=== PATIENT | female | born 1950 | race Caucasian/White ===

== ENCOUNTER → 2019-12-10 13:25 | Outpatient (BNVA) | payer MEDICARE, OTHER, SELFPAY | PROVIDERS: Family Provider Family Medicine; PCP Family Medicine; Visit Provider Internal Medicine Rheumatology | DX: M05.79 Rheumatoid arthritis with rheumatoid factor of multiple sites without organ or systems involvement (principal); Z79.52 Long term (current) use of systemic steroids; M17.0 Bilateral primary osteoarthritis of knee; I10 Essential (primary) hypertension; Z87.891 Personal history of nicotine dependence | CPT/HCPCS: 36415; 82565; 84460; 85025; 85651; 86140; 99213 ==

== ENCOUNTER 2020-01-24 11:34 | Emergency (ER) | payer MEDICARE, OTHER, SELFPAY ==
[2020-01-24 11:49] VITALS: BP 121/64; PULSE 68; RESP 16; TEMP 36.8; O2SAT 96; BMI 29.9
--- NOTE | 2020-01-24 12:05 | XRR_ITS ---
PROCEDURE INFORMATION: Exam: XR Chest, 2 Views Exam date and time: 01/24/2020 12:25 PM Age: 69 years old Clinical indication: Chest pain; Type not specified; Prior surgery; Surgery date: 6+ months; Surgery type: Stent, date not provided TECHNIQUE: Imaging protocol: XR of the chest Views: 2 views. COMPARISON: CR Chest 2 views* [id number] 10/14/2019 12:52 PM FINDINGS: Lungs: Unremarkable. No consolidation. Pleural space: Unremarkable. No pleural effusion. No pneumothorax. Heart/Mediastinum: Unremarkable. No cardiomegaly. Bones/joints: Degenerative change is identified in the spine. There is no evidence for acute fracture or malalignment. XR/XR chest 2V* [id number] IMPRESSION: There are no acute concerning abnormalities.
--- NOTE | 2020-01-24 12:06 | ECG_ITS ---
Measurements Intervals [place] Rate: 69 P: 75 RI: 158 QRS: 24 QRSD: 78 T: 61 QT: 387 QTc: 415 SINUS RHYTHM Compared to ECG 10/14/2019 12:01:13 No significant changes Electronically Signed On 01-24-2020 15:27:16 MAIL ORDER BILLER by Nikki Doe M.D. [id number]
[2020-01-24 12:20] LABS: Basophils # 0.1 10^3/uL (0.0-0.1); Basophils % 0.6 %; Eosinophils # 0.1 10^3/uL (0.0-0.8); Eosinophils % 1.3 %; Hematocrit 35.8 % (37.0-47.0); Hemoglobin 10.8 g/dL (11.5-15.3); Lymphocytes # 1.4 10^3/uL (0.8-4.8); Lymphocytes % 16.2 %; Mean Corpuscular HGB Conc 30.2 g/dL (30.0-36.0); Mean Corpuscular Hemoglobin 23.4 pg (28.0-34.0); Mean Corpuscular Volume 77.7 fL (81-99); Mean Platelet Volume 9.9 fL (7.4-10.4); Monocytes # 0.6 10^3/uL (0.2-0.9); Monocytes % 6.9 %; Neutrophils # 6.5 10^3/uL (1.8-7.7); Neutrophils % 74.7 %; Nucleated Red Blood Cells % 0 %; Platelet Count 319 10^3/cmm (130-400); Red Blood Count 4.61 10^6/uL (4.1-5.3); Red Cell Distribution Width 17.1 % (12.1-15.1); White Blood Count 8.7 10^3/uL (4.0-10.0)
[2020-01-24 12:30] LABS: D Dimer 0.89 ug/mIFEU (0-0.59)
[2020-01-24 12:39] LABS: Troponin(5th) Baseline 10 ng/mL (0-10)
[2020-01-24 12:44] LABS: Alanine Aminotransferase 12 U/L (0-33); Albumin Level 4.1 g/dL (3.5-5.2); Alkaline Phosphatase 94 IU/L (35-105); Anion Gap 14.7 (5-19); Aspartate Amino Transferase 15 U/L (0-32); Blood Urea Nitrogen 22 mg/dL (8-23); Calcium 9.8 mg/dL (8.5-10.5); Carbon Dioxide 26 mmol/L (22-29); Chloride 103 mmol/L (98-107); Globulin 2.2 g/dL (1.3-4.6); Glomerular Filtration Rate 54.8 mL/min (90-130); Glucose 106 mg/dL (65-115); Lipase 51 U/L (13-60); Magnesium 2.3 mg/dL (1.7-2.3); Potassium 3.7 mmol/L (3.5-5.1); Sodium 140 mmol/L (136-145); Thyroid Stimulating Hormone 1.07 uIU/mL (0.27-4.20); Total Bilirubin 0.4 mg/dL (0.15-1.2); Total Protein 6.3 g/dL (6.6-8.7)
== END 2020-01-24 13:53 | disposition left against medical advice (07) ==
LOC: ER 16:59
PROVIDERS: Emergency Provider Nurse Practitioner Family; Family Provider Family Medicine; PCP Family Medicine
DX: R07.9 Chest pain, unspecified (principal); I10 Essential (primary) hypertension; I25.10 Atherosclerotic heart disease of native coronary artery without angina pectoris; Z87.891 Personal history of nicotine dependence; Z53.21 Procedure and treatment not carried out due to patient leaving prior to being seen by health care provider
CPT/HCPCS: 36415; 71046; 80053; 83690; 83735; 84443; 84484; 85025; 85378; 93005; 99281; 99283

== ENCOUNTER 2020-02-25 10:11 | Emergency (ER) | payer MEDICARE, OTHER, SELFPAY ==
[2020-02-25 10:18] VITALS: BP 179/59; PULSE 80; RESP 17; TEMP 36.8; O2SAT 97; BMI 28.1
--- NOTE | 2020-02-25 10:23 | ED_ITS ---
Entered by Nickolas Reilly, acting as scribe for Pradip Brown DO HPI - Extremity Problem General: Chief complaint: Extremity Problem,Nontraumatic Stated complaint: RIGHT KNEE PAIN Time Seen by Provider: 02/25/20 10:22 History of Present Illness: HPI Narrative: 69 yo female presents with right knee pain. Pt recently had knee surgery, she noticed that her knee started bleeding. Pt states that she has been active and noticed that her incision is open a little. No active bleeding in the patient was first seen she denies any chest pain or shortness of breath surgery was approximately 3 weeks ago MD Complaint: extremity pain Associated symptoms: Deny chest pain, fever(s) or rash Review of Systems Const: Denies: fever, chills, body aches, fatigue, malaise or night sweats Eyes: Denies: change in vision or blurry vision ENMT: Denies: throat pain, oral sores/lesions, dental pain, nasal discharge or nasal congestion Card: Denies: chest pain, palpitations, irregular heart rhythm, edema, syncope, shortness of breath on exertion, shortness of breath when lying down or leg pain with exertion Resp: Denies: shortness of breath, productive cough, non-productive cough or wheezing GI: Denies: abdominal pain, nausea, vomiting, vomiting blood, coffee grounds in vomit, difficulty swallowing, heartburn/indigestion, diarrhea, constipation, cramping, blood in stool or black tarry stool : Denies: flank pain, painful urination, urinary frequency, urinary urgency, urinary incontinence or blood in urine Musc: Denies: neck pain, back pain, extremity pain, extremity swelling, joint pain or joint swelling Skin/Breast: Denies: rash, itching or redness Neuro: Denies: headache, numbness in extremities, weakness in extremities, changes in sensation, lack of coordination, difficulty walking, frequent falls, dizziness, vertigo or confusion Psych: Denies: anxiety, depression, loss of interest, visual hallucinations, auditory hallucinations, suicidal ideation or homicidal ideation Endo: Denies: excessive urination, excessive thirst, tired all the time or cold intolerance Shayan/Lymph: Denies: easy bruising, easy bleeding, petechiae, enlarged lymph nodes or tender lymph nodes PFSH ED PFSH: Social History Smoking and tobacco status: former smoker Alcohol intake: current Alcohol intake frequency: holidays/special occasions only History of recent travel: No (12/10/19) Physical Exam Const: COMMON NORMALS: average body habitus, oriented x3 and alert GENERAL APPEARANCE: cooperative, comfortable, well kempt and well developed NUTRITIONAL APPEARANCE: obese ORIENTATION/CONSCIOUSNESS: Yes awake, Yes oriented to person and Yes oriented to place HENMT: COMMON NORMALS: normocephalic, head/scalp atraumatic, EAC's normal, TM's normal bilaterally, external nose normal, moist oral mucous membranes and oropharynx normal HEAD & SCALP: normocephalic and atraumatic NOSE: external nose normal EXTERNAL AUDITORY CANAL: EAC's normal TYMPANIC MEMBRANE: TM's normal bilaterally MOUTH: oral and palatal mucosa normal, lip normal and tongue normal THROAT: posterior oropharynx normal and tonsils normal Eye: COMMON NORMALS: PERRL, EOMs intact bilaterally, conjunctivae normal and no scleral icterus CONJUNCTIVA: Yes conjunctivae normal PUPIL: Yes PERRL Neck/C-Spine: COMMON NORMALS: full ROM, no lymphadenopathy, supple, no meningeal signs and thyroid normal THYROID: thyroid normal and asymmetrical Lymph: LYMPHATIC: no lymphadenopathy noted Resp: COMMON NORMALS: normal respiratory effort, no retractions, no use of accessory muscles and clear to auscultation bilaterally AUSCULTATION: clear to auscultation bilaterally Cardio: COMMON NORMALS: regular rate and regular rhythm RATE: regular rate RHYTHM: regular rhythm HEART SOUNDS: no murmurs GI: COMMON NORMALS: normal to inspection, nondistended, normoactive bowel sounds, soft to palpation and no hepatosplenomegaly PALPATION: Yes soft and Yes no hepatosplenomegaly : COMMON NORMALS: Yes no CVA tenderness BLADDER/KIDNEY EXAM: Yes no CVA tenderness Back/Pelvis: COMMON NORMALS: no CVA tenderness LUMBAR SPINE/LOWER BACK: Yes normal to inspection Extremity: COMMON NORMALS: no clubbing, cyanosis or edema, no calf tenderness and no pedal edema NARRATIVE EXTREMITY EXAM: healing incision on her right knee, with bruising. Small amount of dried blood at the lower third of the incision with in this skin edges. Does not appear to be a significant amount of dehiscence is mostly superficial there is no evidence of erythema redness or drainage mildly tender with palpation no induration Neuro: COMMON NORMALS: oriented x3 SENSORIUM/ORIENTATION: Yes alert, Yes oriented to person and Yes oriented to place MENINGEAL SIGNS: Yes no meningeal signs Psych: APPEARANCE: Yes well kempt Skin: NARRATIVE SKIN EXAM: Bruising and ecchymosis about the incision on the right knee. No redness or erythema mildly positive Homans sign on the left lower leg Course Vital Signs: Vital signs: Vital Signs Temperature 98.2 F 02/25/20 10:18 Pulse Rate 73 02/25/20 11:42 Respiratory Rate 17 02/25/20 10:18 Blood Pressure 175/64 02/25/20 11:42 Pulse Oximetry 97 02/25/20 11:42 MDM - Extremity (Nontraumatic) MDM Narrative: Medical decision making narrative: Venous duplex was negative. Encourage elevation of the knee wound care follow-up with her primary care doctor. She is on Eliquis for DVT prophylaxis Discharge Plan Discharge Patient Disposition: Home, Self-Care Clinical Impression: Lower extremity edema, History of arthroplasty of right knee Condition: Stable Prescriptions: No Action carvedilol 12.5 mg tablet See Rx Instructions .ROUTE .COMPLEX RF: 0 losartan 50 mg tablet 50 mg PO BID RF: 0 indapamide 1.25 mg tablet 2.5 mg PO QAM RF: 0 prednisone 10 mg tablet 10 mg PO DAILY RF: 0 nitroglycerin 0.4 mg tablet, sublingual 0.4 mg SUBLINGUAL Q5M PRN (Reason: Chest Pain) RF: 0 aspirin [Adult Low Dose Aspirin] 81 mg tablet,delayed release (DR/EC) 81 mg PO DAILY RF: 0 escitalopram oxalate 10 mg tablet 10 mg PO DAILY RF: 0 levocetirizine 5 mg tablet 5 mg PO BID PRN (Reason: unknown) RF: 0 clopidogrel [Plavix] 75 mg tablet 75 mg PO DAILY RF: 0 simvastatin 20 mg tablet 20 mg PO DAILY RF: 0 cefadroxil 500 mg capsule 500 mg PO BID RF: 0 hydromorphone 2 mg tablet 2 mg PO Q6H PRN (Reason: Pain) RF: 0 Eliquis 2.5 mg tablet 2.5 mg PO BID RF: 0 Tylenol Extra Strength 500 mg Tablet 500 mg PO PRN RF: 0 Referrals: Silvia Peng MD [Primary Care Provider] - Discharge Date/Time: 02/25/20 11:42 Coding Level of Care Code ED Retail Zone Specialist for Chg Fwd Exam Comprehensive The documentation recorded by the Tommie barth Kialy, accurately reflects the service I personally performed and the decisions made by Stephanie richardson Curtis L, DO Feb 25, 2020 10:11
[2020-02-25 10:31] VITALS: O2SAT 99
--- NOTE | 2020-02-25 10:33 | USCV_ITS ---
Rosie Martinez Age: 69 Gender: F : 1950 Exam Date: 02/25/2020 10:50 Ordering Phys: Pradip Brown DO Technologist: Claudio Pastrana Exam Location: [facility] [place]_ Indication: RT LEG PAIN POST RT KNEE SURG HISTORY: Lower extremity swelling. Erythema. PROCEDURES: Venous duplex imaging was performed in only the right lower extremity. The following venous structures were evaluated: common femoral vein, profunda vein, proximal portion of the greater saphenous vein, superficial femoral vein, and the popliteal vein. In addition, the posterior tibial and peroneal trunk were evaluated. FINDINGS: Normal 2-D Doppler and augmentation and compressibility throughout the lower extremity venous structures. Additional imaging through the proximal calf veins also reveals no thrombus. Limited evaluation of the greater saphenous vein is patent with no thrombus. CONCLUSIONS No DVT right lower extremity. Dr. iNya Oconnell DO (Electronically Signed) Final Date: 25 February 2020 12:29 S
--- NOTE | 2020-02-25 10:45 | PC.NURSE ---
portable ultrasound at bedside
[2020-02-25 11:42] VITALS: BP 175/64; PULSE 73; O2SAT 97
== END 2020-02-25 11:42 | disposition home or self-care (01) ==
PROVIDERS: Emergency Provider Family Medicine; Family Provider Family Medicine; PCP Family Medicine
DX: R60.0 Localized edema (principal); E66.9 Obesity, unspecified; Z68.28 Body mass index [BMI] 28.0-28.9, adult; Z79.01 Long term (current) use of anticoagulants; Z87.891 Personal history of nicotine dependence; Z96.651 Presence of right artificial knee joint
CPT/HCPCS: 12345; 93971; 99281; 99282

== ENCOUNTER 2020-03-16 11:05 | Emergency (ER) | payer MEDICARE, OTHER, SELFPAY ==
[2020-03-16 11:06] VITALS: BP 115/62; PULSE 64; RESP 18; TEMP 36.6; O2SAT 100; BMI 28.3
--- NOTE | 2020-03-16 11:17 | W.ED.CHESTPA ---
HPI - Chest Pain General: Chief Complaint: Chest Pain Stated Complaint: chest pain Time Seen by Provider: 03/16/20 11:17 History of Present Illness: HPI narrative: 69-year-old female presents to the emergency room with a complaint of chest discomfort. This began while she was at home doing physical therapy for her knee arthroplasty she had done at [facility] about 2 to 3 weeks ago. Chest discomfort is worse with movement and worse with palpation is reproducible at the bedside in the emergency room. She does have a known history of coronary artery disease she denies any vomiting or diarrhea she did feel little bit short of breath with it she denies any recent respiratory symptoms or fever no other recent illness bowel bladder have been fine. There is been no swelling or sudden change in discomfort in the Right knee where the arthroplasty was done. MD complaint: chest pain Pertinent past history: coronary artery disease Onset (ago): minute(s) Timing of current episode: episodic Prior episodes: Yes Onset: during exertion Pain location: left chest Pain radiation: none Severity: moderate Quality: sharp Relieving factors: rest Exacerbating factors: palpation and movement Context: recent surgery (2 to 3 weeks ago had a knee arthroplasty) Associated symptoms: Reports no associated symptoms; Deny abdominal pain, dyspnea, fever(s), nausea or vomiting Review of Systems Const: Denies: fever, chills, body aches, change in appetite, fatigue or malaise ENMT: Denies: throat pain, ear pain, nasal discharge or nasal congestion Card: Reports: chest pain; Denies: edema, shortness of breath on exertion or shortness of breath when lying down Resp: Denies: shortness of breath, productive cough or non-productive cough GI: Denies: abdominal pain, nausea, vomiting, vomiting blood, coffee grounds in vomit, diarrhea, constipation, bloating, blood in stool or black tarry stool : Denies: flank pain, difficulty urinating, painful urination, urinary frequency or urinary urgency Skin/Breast: Denies: rash or itching PFSH ED PFSH: Surgical History S/P right coronary artery (RCA) stent placement (~05/2019) Social History Smoking and tobacco status: former smoker Alcohol intake: current Alcohol intake frequency: holidays/special occasions only History of recent travel: No (12/10/19) Physical Exam Const: COMMON NORMALS: no apparent distress GENERAL APPEARANCE: cooperative and comfortable ORIENTATION/CONSCIOUSNESS: Yes awake, Yes oriented to person, Yes oriented to place and Yes oriented to time HENMT: COMMON NORMALS: normocephalic, head/scalp atraumatic, hearing grossly normal bilaterally, external ears normal, EAC's normal, TM's normal bilaterally, nasal mucous membranes and turbinates normal, moist oral mucous membranes and oropharynx normal HEAD & SCALP: normocephalic and atraumatic NOSE: nasal mucous membranes and turbinates normal EXTERNAL EAR: Yes external ears normal EXTERNAL AUDITORY CANAL: EAC's normal TYMPANIC MEMBRANE: TM's normal bilaterally Eye: COMMON NORMALS: PERRL, EOMs intact bilaterally, conjunctivae normal and no scleral icterus CONJUNCTIVA: Yes conjunctivae normal PUPIL: Yes PERRL Neck/C-Spine: COMMON NORMALS: full ROM, no lymphadenopathy, supple and no JVD Lymph: LYMPHATIC: no lymphadenopathy noted and no lymphedema noted Chest: CHEST: Yes tenderness (Tenderness to the anterior chest wall with palpation. Specifically at the lower aspect of the left sternal border) Resp: COMMON NORMALS: normal respiratory effort, no retractions, no use of accessory muscles and clear to auscultation bilaterally AUSCULTATION: clear to auscultation bilaterally Cardio: COMMON NORMALS: no JVD, regular rate, regular rhythm and no murmurs RATE: regular rate RHYTHM: regular rhythm GI: COMMON NORMALS: soft to palpation and no hepatosplenomegaly AUSCULTATION: Yes normoactive bowel sounds PALPATION: Yes soft, No tender, No guarding and Yes no hepatosplenomegaly Extremity: COMMON NORMALS: normal to inspection, normal capillary refill, no clubbing, cyanosis or edema, no calf tenderness and no pedal edema Neuro: SENSORIUM/ORIENTATION: Yes oriented to person, Yes oriented to place and Yes oriented to time Skin: COMMON NORMALS: no rashes or lesions noted GENERAL SKIN EXAM: no rashes or lesions noted Course Vital Signs: Vital signs: Vital Signs Temperature 97.9 F 03/16/20 11:06 Pulse Rate 62 03/16/20 14:43 Respiratory Rate 15 03/16/20 14:43 Blood Pressure 115/57 03/16/20 14:43 Pulse Oximetry 98 03/16/20 14:43 MDM - Chest Pain MDM Narrative: Medical decision making narrative: Cardiac enzymes negative x2 we will discharge patient home and set up a sestamibi stress test has recurrence or problems return encourage patient to take baby aspirin daily. Medical Records: Attestation: I reviewed the patient's medical records. Lab Data: Labs: Lab Results 03/16/20 03/16/20 03/16/20 Range/Units 11:35 11:35 11:35 WBC 9.0 (4.0-10.0) 10^3/ uL RBC 4.06 L (4.1-5.3) 10^6/u L Hgb 10.2 L (11.5-15.3) g/dL Hct 34.6 L (37.0-47.0) % MCV 85.2 (81-99) fL MCH 25.1 L (28.0-34.0) pg MCHC 29.5 L (30.0-36.0) g/dL RDW 16.1 H (12.1-15.1) % Plt Count 287 (130-400) 10^3/c mm MPV 10.0 (7.4-10.4) fL Neut % (Auto) 77.8 % Lymph % (Auto) 10.6 % [place] % (Auto) 9.7 % Eos % (Auto) 1.2 % Baso % (Auto) 0.4 % Neut # (Auto) 7.0 (1.8-7.7) 10^3/u L Lymph # (Auto) 1.0 (0.8-4.8) 10^3/u L [place] # (Auto) 0.9 (0.2-0.9) 10^3/u L Eos # (Auto) 0.1 (0.0-0.8) 10^3/u L Baso # (Auto) 0.0 (0.0-0.1) 10^3/u L Nucleated RBC % (a uto) 0 % Nucleated RBCs # 0.0 /100WBC Sodium 139 (136-145) mmol/L Potassium 3.8 (3.5-5.1) mmol/L Chloride 100 (98-107) mmol/L Carbon Dioxide 26 (22-29) mmol/L Anion Gap 16.8 (5-19) BUN 18 (8-23) mg/dL Creatinine 1.2 H (0.5-0.9) mg/dL GFR Calculation 44.4 L (90-130) mL/min Glucose 110 (65-115) mg/dL Calculated Osmolal ity 285 (285-295) mOsm/k g Calcium 9.9 (8.5-10.5) mg/dL Total Bilirubin 0.7 (0.15-1.2) mg/dL AST 16 (0-32) U/L ALT 10 (0-33) U/L Alkaline Phosphata se 110 H (35-105) IU/L Troponin T Baselin e 12 H (0-10) ng/mL Troponin T 120 Min [place] (0-10) ng/mL Delta Troponin T (0-10) ABS# Total Protein 6.2 L (6.6-8.7) g/dL Albumin 3.9 (3.5-5.2) g/dL Globulin 2.3 (1.3-4.6) g/dL 03/16/20 Range/Units 13:45 WBC (4.0-10.0) 10^3/ uL RBC (4.1-5.3) 10^6/u L Hgb (11.5-15.3) g/dL Hct (37.0-47.0) % MCV (81-99) fL MCH (28.0-34.0) pg MCHC (30.0-36.0) g/dL RDW (12.1-15.1) % Plt Count (130-400) 10^3/c mm MPV (7.4-10.4) fL Neut % (Auto) % Lymph % (Auto) % [place] % (Auto) % Eos % (Auto) % Baso % (Auto) % Neut # (Auto) (1.8-7.7) 10^3/u L Lymph # (Auto) (0.8-4.8) 10^3/u L [place] # (Auto) (0.2-0.9) 10^3/u L Eos # (Auto) (0.0-0.8) 10^3/u L Baso # (Auto) (0.0-0.1) 10^3/u L Nucleated RBC % (a uto) % Nucleated RBCs # /100WBC Sodium (136-145) mmol/L Potassium (3.5-5.1) mmol/L Chloride (98-107) mmol/L Carbon Dioxide (22-29) mmol/L Anion Gap (5-19) BUN (8-23) mg/dL Creatinine (0.5-0.9) mg/dL GFR Calculation (90-130) mL/min Glucose (65-115) mg/dL Calculated Osmolal ity (285-295) mOsm/k g Calcium (8.5-10.5) mg/dL Total Bilirubin (0.15-1.2) mg/dL AST (0-32) U/L ALT (0-33) U/L Alkaline Phosphata se (35-105) IU/L Troponin T Baselin e (0-10) ng/mL Troponin T 120 Min [place] 11.69 H (0-10) ng/mL Delta Troponin T -0.31 L (0-10) ABS# Total Protein (6.6-8.7) g/dL Albumin (3.5-5.2) g/dL Globulin (1.3-4.6) g/dL Discharge Plan Discharge Patient Disposition: Home, Self-Care Clinical Impression: Atypical chest pain Condition: Stable Prescriptions: No Action losartan 50 mg tablet 50 mg PO BID RF: 0 indapamide 1.25 mg tablet 2.5 mg PO QAM RF: 0 nitroglycerin 0.4 mg tablet, sublingual 0.4 mg SUBLINGUAL Q5M PRN (Reason: Chest Pain) RF: 0 escitalopram oxalate 10 mg tablet 10 mg PO DAILY RF: 0 levocetirizine 5 mg tablet 5 mg PO BID PRN (Reason: unknown) RF: 0 clopidogrel [Plavix] 75 mg tablet 75 mg PO DAILY RF: 0 simvastatin 20 mg tablet 20 mg PO DAILY RF: 0 carvedilol 12.5 mg tablet 18.75 mg PO BID 90 Days Qty: 270 RF: 3 hydromorphone 2 mg tablet 2 mg PO Q6H PRN (Reason: Pain) RF: 0 Eliquis 2.5 mg tablet 2.5 mg PO BID RF: 0 acetaminophen [Tylenol Extra Strength] 500 mg Tablet 500 mg PO PRN RF: 0 Referrals: Silvia Peng MD [Primary Care Provider] - Discharge Diet: Usual diet Discharge Activity: Increase activity as tolerated Activity Restrictions/Additional Instructions: Follow-up with your primary care doctor. The or will call to set up a cardiac stress test. 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
--- NOTE | 2020-03-16 11:25 | ECG_ITS ---
Measurements Intervals [place] Rate: 60 P: 54 MO: 160 QRS: -2 QRSD: 84 T: 32 QT: 431 QTc: 432 SINUS RHYTHM Compared to ECG 01/24/2020 11:55:46 No significant changes Electronically Signed On 03-16-2020 21:05:14 CDT by Nikki Doe M.D. [id number]
--- NOTE | 2020-03-16 11:25 | XR_ITS ---
WS: [id number] PORTABLE CHEST HISTORY: dyspnea/cough COMPARISON: 01/24/2020 Lungs are clear and well expanded. No pleural effusion or pneumothorax. Cardiac size: Normal. Mediastinum/Aorta: Normal mediastinum. No osseous abnormality seen. XR/XR chest 1V portable [id number] IMPRESSION: Unremarkable portable chest.
[2020-03-16 11:29] VITALS: O2SAT 98
[2020-03-16 11:59] LABS: Basophils % 0.4 %; Eosinophils # 0.1 10^3/uL (0.0-0.8); Eosinophils % 1.2 %; Hematocrit 34.6 % (37.0-47.0); Hemoglobin 10.2 g/dL (11.5-15.3); Lymphocytes % 10.6 %; Mean Corpuscular HGB Conc 29.5 g/dL (30.0-36.0); Mean Corpuscular Hemoglobin 25.1 pg (28.0-34.0); Mean Corpuscular Volume 85.2 fL (81-99); Monocytes # 0.9 10^3/uL (0.2-0.9); Monocytes % 9.7 %; Neutrophils % 77.8 %; Nucleated Red Blood Cells % 0 %; Platelet Count 287 10^3/cmm (130-400); Red Blood Count 4.06 10^6/uL (4.1-5.3); Red Cell Distribution Width 16.1 % (12.1-15.1)
[2020-03-16 12:22] LABS: Alanine Aminotransferase 10 U/L (0-33); Albumin Level 3.9 g/dL (3.5-5.2); Alkaline Phosphatase 110 IU/L (35-105); Anion Gap 16.8 (5-19); Aspartate Amino Transferase 16 U/L (0-32); Blood Urea Nitrogen 18 mg/dL (8-23); Calcium 9.9 mg/dL (8.5-10.5); Carbon Dioxide 26 mmol/L (22-29); Chloride 100 mmol/L (98-107); Globulin 2.3 g/dL (1.3-4.6); Glomerular Filtration Rate 44.4 mL/min (90-130); Glucose 110 mg/dL (65-115); Osmolality Calculated 285 mOsm/kg (285-295); Potassium 3.8 mmol/L (3.5-5.1); Sodium 139 mmol/L (136-145); Total Bilirubin 0.7 mg/dL (0.15-1.2); Total Protein 6.2 g/dL (6.6-8.7)
[2020-03-16 12:23] LABS: Troponin(5th) Baseline 12 ng/mL (0-10)
[2020-03-16 12:30] VITALS: BP 120/57; PULSE 56; RESP 18; O2SAT 97
[2020-03-16 14:07] LABS: Troponin 5 2HR 11.69 ng/mL (0-10)
[2020-03-16 14:13] LABS: Troponin 5 2HR Delta -0.31 ABS# (0-10)
[2020-03-16 14:43] VITALS: BP 115/57; PULSE 62; RESP 15; O2SAT 98
--- NOTE | 2020-03-16 17:25 | ECG_ITS ---
Measurements Intervals [place] Rate: 56 P: 63 AR: 160 QRS: 17 QRSD: 89 T: 64 QT: 445 QTc: 433 SINUS BRADYCARDIA LOW QRS VOLTAGE IN PRECORDIAL LEADS [QRS DEFLECTION < 1.0 mV IN CHEST LEADS] Compared to ECG 01/24/2020 11:55:46 Low QRS voltage now present Sinus rhythm no longer present Electronically Signed On 03-16-2020 21:11:14 CDT by Nikki Doe M.D. [id number]
--- NOTE | 2020-03-17 09:33 | DCPLANNER ---
manager servicing had message to schedule an out patient stress test for patient. manager servicing called patient to confirm that patient still wanted to have the stress test ordered, and to confirm who patient sees for a primary care physician. manager servicing spoke with patient, she stated that she did want to have the stress test, and that she sees Dr. Peng for primary care physician. manager servicing informed patient that dependency case manager would fax order to centralized scheduling, and would have the results sent to primary care. manager servicing faxed order to centralized scheduling. manager servicing will call for appointment information.
--- NOTE | 2020-03-17 15:52 | DCPLANNER ---
Patient has a stress test scheduled for Friday, March 24, 2020 at 10:45.
--- NOTE | 2020-04-13 15:58 | DCPLANNER ---
Patient did attend outpatient stress test.
== END 2020-03-16 15:35 | disposition home or self-care (01) ==
PROVIDERS: Emergency Provider Family Medicine; Family Provider Family Medicine; PCP Family Medicine
DX: R07.89 Other chest pain (principal); Z79.01 Long term (current) use of anticoagulants; Z95.5 Presence of coronary angioplasty implant and graft; Z87.891 Personal history of nicotine dependence; R05 Cough
CPT/HCPCS: 12345; 36415; 71045; 80053; 84484; 85025; 93005; 99283

== ENCOUNTER 2020-03-24 08:16 | Outpatient (CLI) | payer MEDICARE, OTHER, SELFPAY ==
--- NOTE | 2020-03-24 08:23 | NMCV_ITS ---
NM ede perf SPECT r/s* [id number] Rosie Martinez Age: 69 Gender: F : 1950 Exam Date: 03/24/2020 09:10 Ordering Phys: Pradip Brown DO Technologist: CAROLINA Gamez Exam [facility]: [facility] Indications: CHEST PAIN STRESS TEST [facility] IMAGE PROTOCOL Rest/Stress 1 Lexiscan Day Radiopharmaceutical Dose (mCi) Administration Site Administered by Rest: Tc-99m 10.8 IV CAROLINA Gamez Sestamibi Stress:Tc-99m 32.7 IV CAROLINA Cornell Sestamibi Rest: 24-Mar-2020 60 Discovery 630 Stress: 24-Mar-2020 30 Discovery 630 0.4mg Lexiscan. Images obtained in supine and prone position. SPECT RESULTS Technical Quality: Excellent Raw Data Analysis: Normal Image Corrections: No attenuation or motion correction applied Summed Stress Score: 0 Summed Rest Score: 0 Summed Difference Score: 0 PERFUSION FINDINGS Uniform myocardial tracer uptake. No significant perfusion abnormalities FUNCTIONAL RESULTS (calculated via Gated SPECT) Stress Image LV EF (%): 83 Stress EDV (mL):70 TID: 1 Stress ESV (mL):12 FUNCTIONAL FINDINGS: Segmental wall motion analysis revealing no gross wall motion normalities IMPRESSIONS 1. Unremarkable myocardial perfusion imaging 2. Normal LV ejection fraction of 83%. 3. LV wall motion analysis revealing no gross wall motion normalities. 4. Normal LV volume. No significant coronary ischemia, based on the above findings Dr Karime Solano MD [facility] (Electronically Signed) Final Date: 24 March 2020 14:30 S
--- NOTE | 2020-03-24 08:23 | ECG_ITS ---
NAME OF STUDY: LEXISCAN SESTAMIBI STRESS TEST INDICATION: Chest Pain, PROCEDURE: At the baseline, the EKG revealed normal sinus rhythm with a poor R wave progression. Some nonspecific ST changes.. The baseline blood pressure was 188/72 mm Hg with a heart rate of 66 beats/min. Lexiscan was infused over a period of 20 seconds. A total of 0.4 milligrams of Lexiscan was infused. The stress phase was continued for a total of 5 minutes. Heart rate at the end of the stress phase was 73 with a blood pressure 186/78. The EKG at the peak infusion revealed no significant changes. Sestamibi was injected 20 seconds after the Lexiscan infusion. Blood pressure at the end of the recovery phase was 178/82 with a heart rate of 75 per minute. CONCLUSION: 1. No significant EKG changes with the LexiScan infusion 2. No LexiScan induced chest pain or cardiac arrhythmia 3. Normal blood pressure and heart rate response 4. Sestamibi/sestamibi perfusion scan pending; see separate report. Electronically Signed On 03-24-2020 13:34:03 CDT by Karime Solano M.D. [id number]
[2020-03-24 08:24] VITALS: BMI 29.9
[2020-03-24] MEDS: regadenoson 0.4 Mg/5 ml Syringe IVP (09:49)
[2020-03-24 10:23] VITALS: BP 179/82; PULSE 84
== END 2020-03-24 08:17 | disposition home or self-care (01) ==
LOC: RAD 08:21
PROVIDERS: Family Provider Family Medicine; PCP Family Medicine; Visit Provider Family Medicine
DX: R07.9 Chest pain, unspecified (principal)
CPT/HCPCS: 78452; 93017; A9500; J2785

== ENCOUNTER 2020-04-12 19:20 | Emergency (ER) | payer MEDICARE, OTHER, SELFPAY ==
--- NOTE | 2020-04-12 20:00 | ED_ITS ---
HPI - General Adult General: Stated complaint: brace fell off, needs put back on Time Seen by Provider: 04/12/20 19:54 History of Present Illness: HPI narrative: Ms. Martinez is a very nice 69-year-old female who comes in asking for help with putting her postsurgical shoulder brace back on. She was recently discharged from the hospital but the brace came off and she does not know how to replace it. She denies any new injuries, complaints or numbness or weakness of the arm. She just wants help placing the brace back on. PFSH ED PFSH: Medical History High risk medication use Surgical History H/O hysterectomy with oophorectomy History of total right knee replacement (TKR) S/P right coronary artery (RCA) stent placement (~05/2019) Family History Other Cancer Rheumatoid arthritis Denies family history of Chronic kidney disease (CKD) Systemic lupus erythematosus (SLE) in adult Lung disease Hypertension Social History Smoking and tobacco status: former smoker Alcohol intake: current Alcohol intake frequency: holidays/special occasions only History of recent travel: No (12/10/19) Physical Exam Extremity: NARRATIVE EXTREMITY EXAM: Right upper extremity without evidence of hematoma or swelling. She is neurovascular intact at the hand. Brace is partly removed. MDM - General Adult MDM Narrative: Medical decision making narrative: Nursing will place the patient back in a brace and give her education on how to replace this. She has no questions or concerns. She will follow-up with orthopedic doctor as planned. She does understand she is welcome to return should she have any other problems or any other concerns. Discharge Plan Discharge Patient Disposition: Home, Self-Care Clinical Impression: Aftercare following bilateral shoulder joint replacement surgery Condition: Stable Prescriptions: No Action losartan 50 mg tablet 50 mg PO BID RF: 0 indapamide 1.25 mg tablet 2.5 mg PO QAM RF: 0 nitroglycerin 0.4 mg tablet, sublingual 0.4 mg SUBLINGUAL Q5M PRN (Reason: Chest Pain) RF: 0 escitalopram oxalate 10 mg tablet 10 mg PO DAILY RF: 0 levocetirizine 5 mg tablet 5 mg PO BID PRN (Reason: unknown) RF: 0 clopidogrel [Plavix] 75 mg tablet 75 mg PO DAILY RF: 0 simvastatin 20 mg tablet 20 mg PO DAILY RF: 0 prednisone 2.5 mg tablet 7.5 mg PO DAILY Qty: 90 RF: 1 pantoprazole 40 mg tablet,delayed release (DR/EC) 40 mg PO DAILY Qty: 30 RF: 3 cholecalciferol (vitamin D3) 50 mcg (2,000 unit) capsule 50 mcg PO DAILY Qty: 30 RF: 3 carvedilol 12.5 mg tablet 18.75 mg PO BID 90 Days Qty: 270 RF: 3 Eliquis 2.5 mg tablet 2.5 mg PO BID RF: 0 acetaminophen [Tylenol Extra Strength] 500 mg Tablet 500 mg PO PRN RF: 0 Discharge Orders: Discharge Order (Routine); Ordered 04/12/20 Ordered By: Christina Cavanaugh Referrals: Silvia Peng MD [Primary Care Provider] - Darrion Johnson DO [Physician] - 1-3 days Discharge Diet: Advance as tolerated Discharge Activity: Increase activity as tolerated Activity Restrictions/Additional Instructions: Please return to the ER immediately for any of the signs or symptoms listed on your discharge instruction sheets, worsening/changing of your symptoms, you are not getting better as quickly as expected, or for ANY other cause or concerns. Return to the ER if you have any other problems with your brace or have any other concerns. Coding Level of Care Code ED Deputy Coroner for Loulou Borrero
[2020-04-13 04:29] VITALS: BP 152/98; PULSE 82; RESP 20; O2SAT 97
== END 2020-04-13 04:51 | disposition home or self-care (01) ==
PROVIDERS: Emergency Provider Emergency Medicine; PCP Family Medicine
DX: Z47.1 Aftercare following joint replacement surgery (principal); Z96.611 Presence of right artificial shoulder joint; Z87.891 Personal history of nicotine dependence
CPT/HCPCS: 12345; 99281

== ENCOUNTER → 2020-07-24 11:31 | Outpatient (BNVA) | payer MEDICARE, OTHER, SELFPAY | PROVIDERS: PCP Family Medicine; Visit Provider Nurse Practitioner Family | DX: I10 Essential (primary) hypertension (principal); I25.10 Atherosclerotic heart disease of native coronary artery without angina pectoris; Z87.891 Personal history of nicotine dependence; R23.8 Other skin changes; D64.9 Anemia, unspecified | CPT/HCPCS: 80048; 80061; 82728; 83550; 85025 ==

== ENCOUNTER 2020-08-05 14:04 | Emergency (ER) | payer MEDICARE, OTHER, SELFPAY ==
--- NOTE | 2020-08-05 14:18 | XRR_ITS ---
PROCEDURE INFORMATION: Exam: XR Chest, 1 View Exam date and time: 08/05/2020 2:19 PM Age: 70 years old Clinical indication: Chest pain TECHNIQUE: Imaging protocol: XR of the chest Views: 1 view. COMPARISON: CR XR chest 1V portable [id number] 03/16/2020 11:30 AM FINDINGS: Lungs: Unremarkable. No consolidation. Pleural space: Unremarkable. No pleural effusion. No pneumothorax. Heart/Mediastinum: Unremarkable. No cardiomegaly. Vasculature: There is calcified plaque in the aortic arch. Bones/joints: There has been distal clavicle resection on the right. XR/XR chest 1V portable [id number] IMPRESSION: No evidence for acute cardiopulmonary disease.
--- NOTE | 2020-08-05 14:19 | ECG_ITS ---
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 Measurements Intervals [place] Rate: 63 P: 64 AL: 167 QRS: 14 QRSD: 80 T: 51 QT: 414 QTc: 424 Interpretive Statements SINUS RHYTHM Compared to ECG 03/16/2020 13:35:06 Sinus bradycardia no longer present Electronically Signed On 08-07-2020 8:04:06 CDT by Nikki Doe M.D. [id number]
[2020-08-05 14:24] VITALS: BP 175/99; PULSE 69; RESP 20; TEMP 37.2; O2SAT 96; BMI 28.3
[2020-08-05 14:47] VITALS: BP 134/62; PULSE 68; RESP 18; O2SAT 95
[2020-08-05 14:59] LABS: Basophils # 0.1 10^3/uL (0.0-0.1); Basophils % 0.7 %; Eosinophils # 0.1 10^3/uL (0.0-0.8); Eosinophils % 1.3 %; Hematocrit 35.3 % (37.0-47.0); Hemoglobin 10.7 g/dL (11.5-15.3); Lymphocytes % 14.1 %; Mean Corpuscular HGB Conc 30.3 g/dL (30.0-36.0); Mean Corpuscular Hemoglobin 24.7 pg (28.0-34.0); Mean Corpuscular Volume 81.3 fL (81-99); Mean Platelet Volume 10.5 fL (7.4-10.4); Monocytes # 0.6 10^3/uL (0.2-0.9); Neutrophils # 5.19 10^3/uL (1.8-7.7); Neutrophils % 75.8 %; Nucleated Red Blood Cells % 0 %; Platelet Count 291 10^3/cmm (130-400); Red Blood Count 4.34 10^6/uL (4.1-5.3); Red Cell Distribution Width 16.6 % (12.1-15.1); White Blood Count 6.9 10^3/uL (4.0-10.0)
[2020-08-05 15:07] VITALS: BP 145/67; PULSE 64; RESP 18; O2SAT 95
[2020-08-05 15:23] LABS: Alanine Aminotransferase 13 U/L (0-33); Albumin Level 4.2 g/dL (3.5-5.2); Alkaline Phosphatase 97 IU/L (35-105); Anion Gap 14.3 (5-19); Aspartate Amino Transferase 17 U/L (0-32); Blood Urea Nitrogen 19 mg/dL (8-23); Calcium 9.2 mg/dL (8.5-10.5); Carbon Dioxide 23 mmol/L (22-29); Chloride 105 mmol/L (98-107); Glucose 109 mg/dL (65-115); Osmolality Calculated 283 mOsm/kg (285-295); Potassium 4.3 mmol/L (3.5-5.1); Sodium 138 mmol/L (136-145); Total Bilirubin 0.3 mg/dL (0.15-1.2); Total Protein 6.2 g/dL (6.6-8.7); Troponin(5th) Baseline 8 ng/L (0-10)
[2020-08-05 15:48] LABS: C Reactive Protein 5.2 mg/L (0.0-4.9); Lipase 68 U/L (13-60)
[2020-08-05 16:02] VITALS: BP 153/84; PULSE 60; RESP 18; O2SAT 96
--- NOTE | 2020-08-05 16:19 | ECG_ITS ---
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 Measurements Intervals [place] Rate: 59 P: 51 MO: 156 QRS: 4 QRSD: 89 T: 39 QT: 431 QTc: 430 Interpretive Statements SINUS BRADYCARDIA Compared to ECG 08/05/2020 14:36:42 Sinus rhythm no longer present Electronically Signed On 08-07-2020 8:30:00 CDT by Nikki Doe M.D. [id number]
[2020-08-05 17:17] VITALS: BP 161/70; PULSE 63; RESP 18; O2SAT 96
[2020-08-05 17:19] LABS: Troponin 5 2HR 7.47 ng/L (0-10)
[2020-08-05 17:34] LABS: Troponin 5 2HR Delta -0.53 ABS# (0-10)
--- NOTE | 2020-08-05 17:37 | W.ED.CHESTPA ---
HPI - Chest Pain General: Chief Complaint: Chest Pain Stated Complaint: CP/SOB Time Seen by Provider: 08/05/20 14:25 History of Present Illness: MD complaint: chest pain Onset (ago): hour(s) (2) Timing of current episode: constant Prior episodes: No Onset: during rest Pain location: epigastric and subxiphoid Pain radiation: none Severity: severe Quality: sharp Relieving factors: nothing Exacerbating factors: nothing Associated symptoms: Reports abdominal pain and nausea; Deny diaphoresis, dyspnea, fever(s), leg edema, palpitations, sense of impending doom, syncope or vomiting Treatment prior to arrival: none Review of Systems General: Reports: 10 or more systems reviewed and unremarkable except in HPI and below Const: Denies: fever(s) or diaphoresis Eyes: Denies: change in vision or blurry vision ENMT: Denies: throat pain, enlarged tonsils, odynophagia, hoarseness, mouth pain or swelling of lips/tongue Card: Denies: palpitations or syncope Resp: Denies: dyspnea GI: Reports: abdominal pain and nausea; Denies: vomiting : Denies: flank pain, difficulty voiding, dysuria, urinary frequency, urinary urgency or urinary hesitancy Musc: Denies: neck pain, back pain or extremity swelling Skin/Breast: Denies: rash, pruritus or erythema Neuro: Denies: headache(s), numbness in extremities or weakness in extremities Endo: Denies: polyuria, polydipsia or tired all the time PFSH ED PFSH: Medical History (Reviewed 08/05/20 @ 17:44 by Stefania Kearney MD, 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 [place]) H/O hysterectomy with oophorectomy History of appendectomy History of total right knee replacement (TKR) S/P carpal tunnel release right, Dr. Hazel, 2013 S/P cataract extraction and insertion of intraocular lens bilateral S/P cervical spinal fusion ACDFF Dr. Dawn 12/07/2015 S/P right coronary artery (RCA) stent placement (~05/2019) Family History (Reviewed 08/05/20 @ 17:44 by Stefania Kearney MD, [facility] [place]) Other Cancer Rheumatoid arthritis Denies family history of Chronic kidney disease (CKD) Systemic lupus erythematosus (SLE) in adult Lung disease Hypertension Social History (Reviewed 08/05/20 @ 17:44 by Stefania Kearney MD, [facility] [place]) Smoking and tobacco status: former smoker Alcohol intake: current Alcohol intake frequency: holidays/special occasions only History of recent travel: No (12/10/19) Physical Exam Const: COMMON NORMALS: no acute distress, average body habitus, patient oriented x3, no limitations, healthy appearing, alert and well nourished HENMT: COMMON NORMALS: normocephalic, atraumatic and moist oral mucous membranes HEAD & SCALP: normocephalic and atraumatic Neck/C-Spine: COMMON NORMALS: no meningeal signs and no JVD Resp: COMMON NORMALS: normal respiratory effort, No retractions, No use of accessory muscles, clear to auscultation bilaterally and percussion normal AUSCULTATION: clear to auscultation bilaterally PERCUSSION: percussion normal Cardio: COMMON NORMALS: no JVD, regular rate, regular rhythm, S1 normal heart sound present, S2 normal heart sound present, No gallops present (Cardio), No clicks present (Cardio), No murmurs present (Cardio), No rub (Cardio) and Peripheral pulses 2+ throughout RATE: regular rate RHYTHM: regular rhythm HEART SOUNDS: S1 normal heart sound present and S2 normal heart sound present PERIPHERAL PULSES: Peripheral pulses 2+ throughout GI: COMMON NORMALS: Normal to inspection, nondistended, normoactive bowel sounds present, Soft to palpation, No hepatosplenomegaly present, no masses and no bruits PALPATION: Yes Soft to palpation, Yes Tenderness to palpation present (GI) Details: other (epigastric) and Yes No hepatosplenomegaly present Extremity: COMMON NORMALS: normal to inspection, full ROM, capillary refill normal, no calf tenderness and no pedal edema Neuro: COMMON NORMALS: patient oriented x3 SENSORIUM/ORIENTATION: Yes alert MENINGEAL SIGNS: Yes no meningeal signs Skin: COMMON NORMALS: no rashes or lesions noted, no wounds, turgor normal, no jaundice, no petechiae and no mottling GENERAL SKIN EXAM: no rashes or lesions noted and turgor normal Course Reevaluation(s): Reevaluation #1: Discussed her lab and imaging findings with her. Negative HS troponin x 2. Lipase very mildly elevated and since her pain is mainly epigastric I think this is the cause of her pain. Since the enzyme levels are low there is no indication for imaging. She is advised to be n.p.o. until pain and nausea improves or if she cannot tolerate that she should be on clear liquid diet until the pain improves. Since she is deathly allergic to all narcotic medications I will not give her any additional prescription for pain medicine. She is advised to take Tylenol. She voiced understanding and is in agreement with the plan. Time: 17:38 Vital Signs: Vital signs: Vital Signs Temperature 99 F 08/05/20 14:24 Pulse Rate 63 08/05/20 17:17 Respiratory Rate 18 08/05/20 17:17 Blood Pressure 161/70 08/05/20 17:17 Pulse Oximetry 96 08/05/20 17:17 MDM - Chest Pain MDM Narrative: Medical decision making narrative: 70-year-old female patient with symptoms consistent with acute pancreatitis.. No indication for further imaging and she is discharged home with no orders for narcotic pain medication as she is deathly allergic to them. She is advised to return for any worsening of her symptoms or if her symptoms do not improve. Medical Records: Attestation: I reviewed the patient's medical records. Lab Data: Attestation: I reviewed the patient's lab results. Labs: Lab Results 08/05/20 08/05/20 08/05/20 Range/Units 14:44 14:44 14:44 WBC 6.9 (4.0-10.0) 10^3/ uL RBC 4.34 (4.1-5.3) 10^6/u L Hgb 10.7 L (11.5-15.3) g/dL Hct 35.3 L (37.0-47.0) % MCV 81.3 (81-99) fL MCH 24.7 L (28.0-34.0) pg MCHC 30.3 (30.0-36.0) g/dL RDW 16.6 H (12.1-15.1) % Plt Count 291 (130-400) 10^3/c mm MPV 10.5 H (7.4-10.4) fL Neut % (Auto) 75.8 % Lymph % (Auto) 14.1 % Price % (Auto) 8.0 % Eos % (Auto) 1.3 % Baso % (Auto) 0.7 % Neut # (Auto) 5.19 (1.8-7.7) 10^3/u L Lymph # (Auto) 1.0 (0.8-4.8) 10^3/u L Price # (Auto) 0.6 (0.2-0.9) 10^3/u L Eos # (Auto) 0.1 (0.0-0.8) 10^3/u L Baso # (Auto) 0.1 (0.0-0.1) 10^3/u L Nucleated RBC % (a uto) 0 % Nucleated RBCs # 0.0 /100WBC Sodium 138 (136-145) mmol/L Potassium 4.3 (3.5-5.1) mmol/L Chloride 105 (98-107) mmol/L Carbon Dioxide 23 (22-29) mmol/L Anion Gap 14.3 (5-19) BUN 19 (8-23) mg/dL Creatinine 1.0 H (0.5-0.9) mg/dL GFR Calculation Not Reportable Glucose 109 (65-115) mg/dL Calculated Osmolal ity 283 L (285-295) mOsm/k g Calcium 9.2 (8.5-10.5) mg/dL Total Bilirubin 0.3 (0.15-1.2) mg/dL AST 17 (0-32) U/L ALT 13 (0-33) U/L Alkaline Phosphata se 97 (35-105) IU/L Troponin T Baselin e 8 (0-10) ng/L Troponin T 120 Min [place] (0-10) ng/L Delta Troponin T (0-10) ABS# C-Reactive Protein (0.0-4.9) mg/L Total Protein 6.2 L (6.6-8.7) g/dL Albumin 4.2 (3.5-5.2) g/dL Globulin 2.0 (1.3-4.6) g/dL Lipase (13-60) U/L 08/05/20 08/05/20 Range/Units 14:44 16:50 WBC (4.0-10.0) 10^3/ uL RBC (4.1-5.3) 10^6/u L Hgb (11.5-15.3) g/dL Hct (37.0-47.0) % MCV (81-99) fL MCH (28.0-34.0) pg MCHC (30.0-36.0) g/dL RDW (12.1-15.1) % Plt Count (130-400) 10^3/c mm MPV (7.4-10.4) fL Neut % (Auto) % Lymph % (Auto) % Price % (Auto) % Eos % (Auto) % Baso % (Auto) % Neut # (Auto) (1.8-7.7) 10^3/u L Lymph # (Auto) (0.8-4.8) 10^3/u L Price # (Auto) (0.2-0.9) 10^3/u L Eos # (Auto) (0.0-0.8) 10^3/u L Baso # (Auto) (0.0-0.1) 10^3/u L Nucleated RBC % (a uto) % Nucleated RBCs # /100WBC Sodium (136-145) mmol/L Potassium (3.5-5.1) mmol/L Chloride (98-107) mmol/L Carbon Dioxide (22-29) mmol/L Anion Gap (5-19) BUN (8-23) mg/dL Creatinine (0.5-0.9) mg/dL GFR Calculation Glucose (65-115) mg/dL Calculated Osmolal ity (285-295) mOsm/k g Calcium (8.5-10.5) mg/dL Total Bilirubin (0.15-1.2) mg/dL AST (0-32) U/L ALT (0-33) U/L Alkaline Phosphata se (35-105) IU/L Troponin T Baselin e (0-10) ng/L Troponin T 120 Min [place] 7.47 (0-10) ng/L Delta Troponin T -0.53 L (0-10) ABS# C-Reactive Protein 5.2 H (0.0-4.9) mg/L Total Protein (6.6-8.7) g/dL Albumin (3.5-5.2) g/dL Globulin (1.3-4.6) g/dL Lipase 68 H (13-60) U/L Imaging Data^: CXR: Radiologist's impression: [address] [address] XRay Report Signed Patient: Rosie Martinez AUnparvez #: [id number] : 9Acct#:[id number] Age/Sex: 70 / FADM Date: 08/05/20 Loc: ERRoom/Bed: Attending Dr: Ordering Provider/Ordering MD: Ailin Jhaveri Date of Service: 08/05/20 Procedure(s): XR chest 1V portable [id number] Accession Number(s): [id number] Report Number: [id number] PROCEDURE INFORMATION: Exam: XR Chest, 1 View Exam date and time: 08/05/2020 2:19 PM Age: 70 years old Clinical indication: Chest pain TECHNIQUE: Imaging protocol: XR of the chest Views: 1 view. COMPARISON: CR XR chest 1V portable [id number] 03/16/2020 11:30 AM FINDINGS: Lungs: Unremarkable. No consolidation. Pleural space: Unremarkable. No pleural effusion. No pneumothorax. Heart/Mediastinum: Unremarkable. No cardiomegaly. Vasculature: There is calcified plaque in the aortic arch. Bones/joints: There has been distal clavicle resection on the right. XR/XR chest 1V portable [id number] IMPRESSION: No evidence for acute cardiopulmonary disease. Dictated By:Yoko Scott MD Signed By:Yoko Scott MDSigned Date/Time:08/05/20 1509 DD/ 1508 EKG Data^: EKG 1: Attestation: I personally reviewed and interpreted this EKG as follows: EKG interpretation date: 08/05/20 EKG interpretation time: 14:36 Prior EKG tracings: not available for review Interpretation: Normal sinus rhythm. Heart rate 63 bpm. Normal axis. No ST changes. No STEMI. EKG 2: Attestation: I personally reviewed and interpreted this EKG as follows: EKG interpretation date: 08/05/20 EKG interpretation time: 16:59 Prior EKG tracings: available for review Interpretation: Sinus bradycardia. Heart rate [address] changes. Normal axis. Unchanged from earlier today other than her heart rate is now 59. Discharge Plan Discharge Patient Disposition: Home Clinical Impression: Acute pancreatitis Qualifiers: Pancreatitis type: unspecified pancreatitis type Acute pancreatitis complication: no infection or necrosis Qualified Code(s): K85.90 - Acute pancreatitis without necrosis or infection, unspecified Condition: Stable Prescriptions: Continued valsartan 160 mg tablet 160 mg PO DAILY Qty: 90 RF: 2 nitroglycerin 0.4 mg tablet, sublingual 0.4 mg SUBLINGUAL Q5M PRN (Reason: Chest Pain) RF: 0 escitalopram oxalate 10 mg tablet 10 mg PO DAILY RF: 0 clopidogrel [Plavix] 75 mg tablet 75 mg PO DAILY RF: 0 prednisone 2.5 mg tablet 7.5 mg PO DAILY Qty: 90 RF: 1 pantoprazole 40 mg tablet,delayed release (DR/EC) 40 mg PO DAILY Qty: 30 RF: 3 cholecalciferol (vitamin D3) 50 mcg (2,000 unit) capsule 50 mcg PO DAILY Qty: 30 RF: 3 carvedilol 12.5 mg tablet 18.75 mg PO BID 90 Days Qty: 270 RF: 3 indapamide 1.25 mg tablet 2.5 mg PO DAILY Qty: 180 RF: 3 losartan 50 mg Tablet 50 mg PO BID RF: 0 simvastatin 20 mg Tablet 20 mg PO DAILY RF: 0 acetaminophen [Tylenol Extra Strength] 500 mg Tablet 500 mg PO Q6H PRN (Reason: Pain) RF: 0 Discharge Orders: Discharge Order (Routine); Ordered 08/05/20 Ordered By: Stefania Kearney Referrals: Silvia Peng MD [Primary Care Provider] - 1-3 days Discharge Diet: Clear Liquid Discharge Activity: Increase activity as tolerated Patient Instructions: Pancreatitis (ED) Activity Restrictions/Additional Instructions: Return for any new or worsening symptoms. Return especially if your pain or nausea get worse, you are vomiting and unable to keep anything down, you have any fever or any concerns. Take Tylenol as needed for pain. If you can rest your bowels with no food or drinks for about 12 hours to 24 hours then start with a clear liquid diet and if you tolerate that you can advance your diet as tolerated to get your regular diet. So you start with a clear liquid diet, which means clear fluids only, then you can improve to a full liquid diet like soups and thickened liquids, then you start with soft foods before you go to regular foods. Follow-up with your primary care provider within 3 days. Coding Level of Care Code ED Basketball Player for Loulou Fwd Exam Comprehensive
[2020-08-05] MEDS: ketorolac 30 mg/mL INJ 15 MG IVP (18:16)
[2020-08-05 18:40] VITALS: BP 127/90; PULSE 70; RESP 20; TEMP 37; O2SAT 97
== END 2020-08-05 18:40 | disposition home or self-care (01) ==
PROVIDERS: Physician Assistant; Emergency Provider Family Medicine; PCP Family Medicine
DX: K85.90 Acute pancreatitis without necrosis or infection, unspecified (principal); Z79.02 Long term (current) use of antithrombotics/antiplatelets; I25.10 Atherosclerotic heart disease of native coronary artery without angina pectoris; E78.5 Hyperlipidemia, unspecified; I10 Essential (primary) hypertension; Z87.891 Personal history of nicotine dependence
CPT/HCPCS: 12345; 71045; 80053; 83690; 84484; 85025; 86140; 93005; 96374; 96375; 99283; J1885

== ENCOUNTER 2020-09-13 19:03 | Emergency (ER) | payer MEDICARE, OTHER, SELFPAY ==
--- NOTE | 2020-09-13 19:12 | XR_ITS ---
WS: [id number] Left ankle, 3 views, 09/13/2020 Clinical Data: injury Comparison: None. Findings: No fractures or dislocations are seen. The ankle mortise is normal. The talus and calcaneus are unrem arkable. No soft tissue swelling over the medial or lateral malleolus is seen. XR/XR ankle LT min 3V* [id number] Impression: Negative left ankle.
--- NOTE | 2020-09-13 19:12 | XR_ITS ---
WS: [id number] Left foot, 3 views, 09/13/2020 Clinical Data: injury Comparison: None. Findings: No fractures or dislocations are seen. No bone destruction or erosion is noted. The soft tissues are normal. There is osteoarthritic change with a small bunion at the left first MP joint. XR/XR foot LT min 3V* [id number] Impression: Negative for left foot fracture.
[2020-09-13 19:27] VITALS: BP 184/72; PULSE 74; RESP 16; TEMP 36.7; O2SAT 96; BMI 29.1
--- NOTE | 2020-09-13 19:35 | W.ED.EXTPRO ---
HPI - Extremity Problem General: Chief complaint: Extremity Injury, Lower Stated complaint: l foot pain Time Seen by Provider: 09/13/20 19:34 History of Present Illness: HPI Narrative: She is a 70-year-old female comes to the ED with left foot pain. Patient says that a couple years ago she fractured her little toe and left foot. She says earlier this morning she woke up and had pain in her left toe. She denies any injury or trauma to the foot to cause acute pain. She has not taking anything at home for pain today. Patient says she is able to ambulate but does have some pain in the fifth digit of left foot during weightbearing. When sitting her pain is a 1 out of 10. Any pressure or weightbearing on the left foot does increase pain. Associated symptoms: Deny chest pain, fever(s) or rash Review of Systems Const: Denies: fever(s), chills or fatigue Eyes: Denies: change in vision or eye discomfort ENMT: Denies: throat pain, odynophagia, nasal discharge or nasal congestion Card: Denies: chest pain, palpitations, edema, swelling of feet/ankles, dyspnea on exertion or orthopnea Resp: Denies: dyspnea, productive cough or non-productive cough GI: Denies: abdominal pain, nausea, vomiting, diarrhea, constipation or hematochezia : Denies: flank pain, dysuria or hematuria Musc: Reports: extremity pain (left foot-5th digit pain); Denies: neck pain, back pain or extremity swelling Skin/Breast: Denies: rash or new lesions Neuro: Denies: headache(s), numbness in extremities or weakness in extremities PFS ED PFSH: Medical History Abdominal aortic aneurysm (AAA) 3.0 cm to 5.0 cm in diameter in female 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 Hazel, 2014 S/P cataract extraction and insertion of intraocular lens bilateral S/P cervical spinal fusion ACDFF Dr. Dawn 12/07/2015 S/P right coronary artery (RCA) stent placement (~05/2019) Family History Other Cancer Rheumatoid arthritis Denies family history of Chronic kidney disease (CKD) Systemic lupus erythematosus (SLE) in adult Lung disease Hypertension Social History Smoking and tobacco status: former smoker Alcohol intake: current Alcohol intake frequency: holidays/special occasions only History of recent travel: No (12/10/19) Physical Exam Const: COMMON NORMALS: no acute distress, patient oriented x3, healthy appearing and alert GENERAL APPEARANCE: cooperative and comfortable HENMT: COMMON NORMALS: normocephalic HEAD & SCALP: normocephalic MOUTH: Normal oral and palatal mucosa present THROAT: posterior oropharynx normal and uvula midline Neck/C-Spine: COMMON NORMALS: supple GENERAL: Yes normal visual inspection Resp: COMMON NORMALS: normal respiratory effort, No retractions, No use of accessory muscles and clear to auscultation bilaterally AUSCULTATION: clear to auscultation bilaterally Cardio: COMMON NORMALS: regular rate, regular rhythm, S1 normal heart sound present, S2 normal heart sound present, No gallops present (Cardio), No clicks present (Cardio), No murmurs present (Cardio) and Peripheral pulses 2+ throughout RATE: regular rate RHYTHM: regular rhythm HEART SOUNDS: S1 normal heart sound present and S2 normal heart sound present PERIPHERAL PULSES: Peripheral pulses 2+ throughout GI: COMMON NORMALS: Normal to inspection, nondistended, normoactive bowel sounds present, Soft to palpation, non-tender and no masses PALPATION: Yes Soft to palpation : COMMON NORMALS: Yes no CVA tenderness BLADDER/KIDNEY EXAM: Yes no CVA tenderness Back/Pelvis: COMMON NORMALS: no CVA tenderness Extremity: NARRATIVE EXTREMITY EXAM: Patient has some mild tenderness over fifth digit of the left foot. No erythema, swelling, deformity or warmth. Rest of exam is unremarkable. GENERAL: Yes normal exam except as noted Neuro: COMMON NORMALS: patient oriented x3 and moves all extremities SENSORIUM/ORIENTATION: Yes alert Skin: COMMON NORMALS: no rashes or lesions noted GENERAL SKIN EXAM: no rashes or lesions noted and dry skin Course Vital Signs: Vital signs: Vital Signs Temperature 98.1 F 09/13/20 19:27 Pulse Rate 74 09/13/20 20:08 Respiratory Rate 18 09/13/20 20:08 Blood Pressure 178/74 09/13/20 20:08 Pulse Oximetry 97 09/13/20 20:08 MDM - Extremity (Nontraumatic) MDM Narrative: Medical decision making narrative: Patient is a 70-year-old female comes to the ED with nontraumatic left foot pain. She says that she fractured fifth metatarsal several years ago. Pain is located right where patient had previous fracture. She denies any trauma or injury causing pain. Physical exam is unremarkable except for some tenderness upon palpation of the fifth metatarsal of left foot. Left foot x-ray showed no acute fractures or findings. Patient was diagnosed with right foot pain and discharged with a stiff soled shoe to help with ambulation. Follow-up with PCP in 7 to 10 days. Rest ice and elevate left foot. Return to ED precautions given. Patient understood and agreed with plan. Imaging Data^: Xray Ortho: Attestation: I personally reviewed and interpreted this imaging study as follows: My impression: Left ankle x-ray showed no acute fractures or findings. Left foot x-ray showed no acute fractures or findings Discharge Plan Discharge Patient Disposition: Home Clinical Impression: Acute pain of left foot Condition: Stable Prescriptions: No Action valsartan 160 mg tablet 160 mg PO DAILY Qty: 90 RF: 2 nitroglycerin 0.4 mg tablet, sublingual 0.4 mg SUBLINGUAL Q5M PRN (Reason: Chest Pain) RF: 0 escitalopram oxalate 10 mg tablet 10 mg PO DAILY RF: 0 clopidogrel [Plavix] 75 mg tablet 75 mg PO DAILY RF: 0 prednisone 2.5 mg tablet 7.5 mg PO DAILY Qty: 90 RF: 1 pantoprazole 40 mg tablet,delayed release (DR/EC) 40 mg PO DAILY Qty: 30 RF: 3 cholecalciferol (vitamin D3) 50 mcg (2,000 unit) capsule 50 mcg PO DAILY Qty: 30 RF: 3 carvedilol 12.5 mg tablet 18.75 mg PO BID 90 Days Qty: 270 RF: 3 indapamide 1.25 mg tablet 2.5 mg PO DAILY Qty: 180 RF: 3 losartan 50 mg Tablet 50 mg PO BID RF: 0 simvastatin 20 mg Tablet 20 mg PO DAILY RF: 0 acetaminophen [Tylenol Extra Strength] 500 mg Tablet 500 mg PO Q6H PRN (Reason: Pain) RF: 0 Discharge Orders: Discharge Order (Routine); Ordered 09/13/20 Ordered By: Grupo Alatorre Referrals: Silvia Peng MD [Primary Care Provider] - Discharge Diet: Regular Discharge Activity: Increase activity as tolerated Activity Restrictions/Additional Instructions: Follow-up with medical provider as directed in 7-10 days. Wear stiff soled shoe to help with pain during ambulation. Ice rest and elevate left foot. Take [id number] Tylenol for pain. Return to the ER or your medical provider if condition worsens. Please read and understand discharge instructions. If any questions, please ask. Discharge Date/Time: 09/13/20 20:41 Coding Level of Care Code ED Manager [facility] for [facility] Fwd Exam Comprehensive
[2020-09-13 19:37] VITALS: BP 178/74; PULSE 74; RESP 18; O2SAT 97
[2020-09-13 20:08] VITALS: BP 178/74; PULSE 74; RESP 18; O2SAT 97
== END 2020-09-13 20:41 | disposition home or self-care (01) ==
PROVIDERS: Emergency Provider Physician Assistant; PCP Family Medicine
DX: M79.672 Pain in left foot (principal); Z79.02 Long term (current) use of antithrombotics/antiplatelets; I25.10 Atherosclerotic heart disease of native coronary artery without angina pectoris; E78.5 Hyperlipidemia, unspecified; I10 Essential (primary) hypertension; Z87.891 Personal history of nicotine dependence; I73.9 Peripheral vascular disease, unspecified
CPT/HCPCS: 12345; 73610; 73630; 99281; 99283

== ENCOUNTER 2020-10-05 10:54 | Emergency (ER) | payer MEDICARE, OTHER, SELFPAY ==
[2020-10-05 10:59] VITALS: BP 199/93; PULSE 74; RESP 22; TEMP 36.1; O2SAT 98; BMI 29.1
[2020-10-05 11:05] VITALS: BP 185/123; PULSE 74; RESP 20; O2SAT 98
--- NOTE | 2020-10-05 11:05 | PC.NURSE ---
EKG done at 1103 and shown to ER doctor
--- NOTE | 2020-10-05 11:07 | XR_ITS ---
WS: [id number] CHEST XRAY TECHNIQUE: Portable chest. CLINICAL INFORMATION: COMPARISON: August 05, 2020 FINDINGS: Heart: Normal cardiac silhouette. Aortic calcification. Lungs: Lungs are clear. No consolidation or pleural effusion. Bones: Postoperative changes lower cervical spine XR/XR chest 1V portable [id number] IMPRESSION: No acute pulmonary infiltrates. No acute chest findings.
--- NOTE | 2020-10-05 11:07 | ECG_ITS ---
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
--- NOTE | 2020-10-05 11:12 | ED_ITS ---
HPI - Chest Pain General: Chief Complaint: Chest Pain Stated Complaint: chest pain Time Seen by Provider: 10/05/20 11:07 Source: patient Mode of arrival: ambulatory Limitations: no limitations History of Present Illness: HPI narrative: 70-year-old female who states she had chest pain started 2 hours ago. States pain is sharp in nature patient states it is much worse with palpation. She denies any fever. She states pain is a 9 out of 10. She had mild shortness of breath. Denies any cough or fever. MD complaint: chest pain Onset (ago): hour(s) Associated symptoms: Deny abdominal pain, dyspnea, fever(s), nausea or vomiting Review of Systems Const: Denies: fever(s), chills, body aches or change in appetite Eyes: Denies: blurry vision or eye discomfort ENMT: Denies: throat pain or dental pain Card: Reports: chest pain Resp: Denies: dyspnea GI: Denies: abdominal pain, nausea, vomiting or diarrhea : Denies: dysuria Musc: Denies: neck pain or back pain Skin/Breast: Denies: rash Neuro: Denies: headache(s) Psych: Denies: depression Shayan/Lymph: Denies: easy bruising All/Imm: Denies: urticaria PFSH ED PFSH: Medical History Abdominal aortic aneurysm (AAA) 3.0 cm to 5.0 cm in diameter in female 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 Hazel, 2014 S/P cataract extraction and insertion of intraocular lens bilateral S/P cervical spinal fusion ACDFF Dr. Dawn 12/07/2015 S/P right coronary artery (RCA) stent placement (~05/2019) Family History Other Cancer Rheumatoid arthritis Denies family history of Chronic kidney disease (CKD) Systemic lupus erythematosus (SLE) in adult Lung disease Hypertension Social History Smoking and tobacco status: former smoker Alcohol intake: current Alcohol intake frequency: holidays/special occasions only History of recent travel: No (12/10/19) Physical Exam Const: COMMON NORMALS: no acute distress, patient oriented x3 and healthy appearing HENMT: COMMON NORMALS: normocephalic and atraumatic HEAD & SCALP: normoceph alic and atraumatic Eye: COMMON NORMALS: Equal, round and reactive pupils present and EOMs intact bilaterally PUPIL: Yes Equal, round and reactive pupils present Neck/C-Spine: COMMON NORMALS: full ROM and supple Chest: COMMONS NORMALS: normal inspection of the chest OTHER: point tender to palpation Resp: COMMON NORMALS: normal respiratory effort, No retractions, No use of accessory muscles and clear to auscultation bilaterally AUSCULTATION: clear to auscultation bilaterally Cardio: COMMON NORMALS: regular rate, regular rhythm and No murmurs present (Cardio) RATE: regular rate RHYTHM: regular rhythm GI: COMMON NORMALS: Normal to inspection, nondistended, normoactive bowel sounds present, Soft to palpation, non-tender and no masses PALPATION: Yes Soft to palpation Extremity: COMMON NORMALS: normal to inspection and full ROM Neuro: COMMON NORMALS: patient oriented x3, moves all extremities and no focal motor deficits Psych: COMMON NORMALS: mental status grossly normal, Normal thought process present and cooperative THOUGHT PROCESS: Normal thought process present Skin: COMMON NORMALS: no rashes or lesions noted and no wounds GENERAL SKIN EXAM: no rashes or lesions noted Course Vital Signs: Vital signs: Vital Signs Temperature 97.0 F L 10/05/20 10:59 Pulse Rate 80 10/05/20 13:49 Respiratory Rate 16 10/05/20 13:49 Blood Pressure 180/79 10/05/20 13:49 Pulse Oximetry 95 10/05/20 13:49 MDM - Chest Pain MDM Narrative: Medical decision making narrative: Patient presents with chest pain is atypical in nature. Is likely muscle skeletal nature she is point tender in the center of her chest. She has no signs of cardiac cause or pulmonary bruising. Patient is stable for discharge and is to follow-up PCP in 3 to 5 days return if worsening. Lab Data: Labs: Lab Results 10/05/20 10/05/20 10/05/20 Range/Units 11:25 11:25 11:25 WBC 5.8 (4.0-10.0) 10^3/ uL RBC 4.66 (4.1-5.3) 10^6/u L Hgb 11.5 (11.5-15.3) g/dL Hct 36.6 L (37.0-47.0) % MCV 78.5 L (81-99) fL MCH 24.7 L (28.0-34.0) pg MCHC 31.4 (30.0-36.0) g/dL RDW 15.1 (12.1-15.1) % Plt Count 283 (130-400) 10^3/c mm MPV 10.4 (7.4-10.4) fL Neut % (Auto) 65.3 % Lymph % (Auto) 22.1 % Treg[place] % (Auto) 10.4 % Eos % (Auto) 1.0 % Baso % (Auto) 0.9 % Neut # (Auto) 3.77 (1.8-7.7) 10^3/u L Lymph # (Auto) 1.3 (0.8-4.8) 10^3/u L Treg[place] # (Auto) 0.6 (0.2-0.9) 10^3/u L Eos # (Auto) 0.1 (0.0-0.8) 10^3/u L Baso # (Auto) 0.1 (0.0-0.1) 10^3/u L Nucleated RBC % (a uto) 0 % Nucleated RBCs # 0.0 /100WBC PT 13.40 (12.1-14.9) SECO NDS INR 0.99 (0.8-1.2) Sodium 140 (136-145) mmol/L Potassium 3.2 L (3.5-5.1) mmol/L Chloride 102 (98-107) mmol/L Carbon Dioxide 25 (22-29) mmol/L Anion Gap 16.2 (5-19) BUN 14 (8-23) mg/dL Creatinine 1.0 H (0.5-0.9) mg/dL GFR Calculation Not Reportable Glucose 112 (65-115) mg/dL Calculated Osmolal ity 291 (285-295) mOsm/k g Calcium 9.8 (8.5-10.5) mg/dL Total Bilirubin 0.6 (0.15-1.2) mg/dL AST 23 (0-32) U/L ALT 16 (0-33) U/L Alkaline Phosphata se 125 H (35-105) IU/L Troponin T Baselin e (0-10) ng/L Troponin T 120 Min haroldo (0-10) ng/L Total Protein 6.3 L (6.6-8.7) g/dL Albumin 4.2 (3.5-5.2) g/dL Globulin 2.1 (1.3-4.6) g/dL 10/05/20 10/05/20 Range/Units 11:25 13:25 WBC (4.0-10.0) 10^3/ uL RBC (4.1-5.3) 10^6/u L Hgb (11.5-15.3) g/dL Hct (37.0-47.0) % MCV (81-99) fL MCH (28.0-34.0) pg MCHC (30.0-36.0) g/dL RDW (12.1-15.1) % Plt Count (130-400) 10^3/c mm MPV (7.4-10.4) fL Neut % (Auto) % Lymph % (Auto) % Trego % (Auto) % Eos % (Auto) % Baso % (Auto) % Neut # (Auto) (1.8-7.7) 10^3/u L Lymph # (Auto) (0.8-4.8) 10^3/u L Trego # (Auto) (0.2-0.9) 10^3/u L Eos # (Auto) (0.0-0.8) 10^3/u L Baso # (Auto) (0.0-0.1) 10^3/u L Nucleated RBC % (a uto) % Nucleated RBCs # /100WBC PT (12.1-14.9) SECO NDS INR (0.8-1.2) Sodium (136-145) mmol/L Potassium (3.5-5.1) mmol/L Chloride (98-107) mmol/L Carbon Dioxide (22-29) mmol/L Anion Gap (5-19) BUN (8-23) mg/dL Creatinine (0.5-0.9) mg/dL GFR Calculation Glucose (65-115) mg/dL Calculated Osmolal ity (285-295) mOsm/k g Calcium (8.5-10.5) mg/dL Total Bilirubin (0.15-1.2) mg/dL AST (0-32) U/L ALT (0-33) U/L Alkaline Phosphata se (35-105) IU/L Troponin T Baselin e 10 (0-10) ng/L Troponin T 120 Min haroldo 9.62 (0-10) ng/L Total Protein (6.6-8.7) g/dL Albumin (3.5-5.2) g/dL Globulin (1.3-4.6) g/dL Imaging Data^: CXR: Radiologist's impression: [address] [address] XRay Report Signed Patient: Rosie Martinez Unit #: [id number] : 1950 Age/Sex: 70 / F ADM Date: 10/05/20 Loc: ER Room/Bed: Attending Dr: Ordering Provider/Ordering MD: Daniel Sorenson MD Date of Service: 10/05/20 Procedure(s): XR chest 1V portable [id number] Accession Number(s): [id number] Report Number: [id number] WS: [id number] CHEST XRAY TECHNIQUE: Portable chest. CLINICAL INFORMATION: cp COMPARISON: August 05, 2020 FINDINGS: Heart: Normal cardiac silhouette. Aortic calcification. Lungs: Lungs are clear. No consolidation or pleural effusion. Bones: Postoperative changes lower cervical spine XR/XR chest 1V portable [id number] IMPRESSION: No acute pulmonary infiltrates. No acute chest findings. EKG Data^: EKG 1: Attestation: I personally reviewed and interpreted this EKG as follows: EKG interpretation date: 10/05/20 EKG interpretation time: 11:01 Interpretation: nsr hr [address] or t wave abnormalities qrs 86 qtc 410 EKG 2: Attestation: I personally reviewed and interpreted this EKG as follows: EKG interpretation date: 10/05/20 EKG interpretation time: 13:20 Interpretation: sinus isabela hr [address] or t wave abnormalities qr 97 qtc 453 Discharge Plan Discharge Patient Disposition: Home Clinical Impression: Chest pain Qualifiers: Chest pain type: unspecified Qualified Code(s): R07.9 - Chest pain, unspecified Condition: Stable Prescriptions: New Naprosyn 500 mg tablet 500 mg PO BID PRN (Reason: pain) Qty: 20 RF: 0 No Action valsartan 160 mg tablet 160 mg PO DAILY Qty: 90 RF: 2 nitroglycerin 0.4 mg tablet, sublingual 0.4 mg SUBLINGUAL Q5M PRN (Reason: Chest Pain) RF: 0 escitalopram oxalate 10 mg tablet 10 mg PO DAILY RF: 0 clopidogrel [Plavix] 75 mg tablet 75 mg PO DAILY RF: 0 prednisone 2.5 mg tablet 7.5 mg PO DAILY Qty: 90 RF: 1 pantoprazole 40 mg tablet,delayed release (DR/EC) 40 mg PO DAILY Qty: 30 RF: 3 cholecalciferol (vitamin D3) 50 mcg (2,000 unit) capsule 50 mcg PO DAILY Qty: 30 RF: 3 carvedilol 12.5 mg tablet 18.75 mg PO BID 90 Days Qty: 270 RF: 3 indapamide 1.25 mg tablet 2.5 mg PO DAILY Qty: 180 RF: 3 losartan 50 mg Tablet 50 mg PO BID RF: 0 simvastatin 20 mg Tablet 20 mg PO DAILY RF: 0 Discharge Orders: Discharge Order (Routine); Ordered 10/05/20 Ordered By: Daniel Sorenson Referrals: Silvia Peng MD [Primary Care Provider] - 1-3 days Discharge Diet: Advance as tolerated Discharge Activity: Resume usual activity Patient Instructions: Chest Pain - Chest Wall Coding Level of Care Code ED Corporate Operations Compliance Manager for [facility]g Fwd Exam Comprehensive
[2020-10-05 11:31] LABS: Basophils # 0.1 10^3/uL (0.0-0.1); Basophils % 0.9 %; Eosinophils # 0.1 10^3/uL (0.0-0.8); Hematocrit 36.6 % (37.0-47.0); Hemoglobin 11.5 g/dL (11.5-15.3); Lymphocytes # 1.3 10^3/uL (0.8-4.8); Lymphocytes % 22.1 %; Mean Corpuscular HGB Conc 31.4 g/dL (30.0-36.0); Mean Corpuscular Hemoglobin 24.7 pg (28.0-34.0); Mean Corpuscular Volume 78.5 fL (81-99); Mean Platelet Volume 10.4 fL (7.4-10.4); Monocytes # 0.6 10^3/uL (0.2-0.9); Monocytes % 10.4 %; Neutrophils # 3.77 10^3/uL (1.8-7.7); Neutrophils % 65.3 %; Nucleated Red Blood Cells % 0 %; Platelet Count 283 10^3/cmm (130-400); Red Blood Count 4.66 10^6/uL (4.1-5.3); Red Cell Distribution Width 15.1 % (12.1-15.1); White Blood Count 5.8 10^3/uL (4.0-10.0)
--- NOTE | 2020-10-05 11:32 | PC.NURSE ---
Place a new cuff, and BP is increasing Informed Dr Delta Fryadol given per written order
[2020-10-05] MEDS: ketorolac 30 mg/mL INJ 15 MG IVP (11:35)
[2020-10-05 11:52] VITALS: RESP 22
[2020-10-05] MEDS: HYDROmorphone 1 mg/mL INJ 1 mL 0.5 MG IVP (11:52)
[2020-10-05] MEDS: ondansetron 2 mg/ML SDV 2 mL 4 MG IVP (11:53)
[2020-10-05 11:56] LABS: Alanine Aminotransferase 16 U/L (0-33); Albumin Level 4.2 g/dL (3.5-5.2); Alkaline Phosphatase 125 IU/L (35-105); Anion Gap 16.2 (5-19); Aspartate Amino Transferase 23 U/L (0-32); Blood Urea Nitrogen 14 mg/dL (8-23); Calcium 9.8 mg/dL (8.5-10.5); Carbon Dioxide 25 mmol/L (22-29); Chloride 102 mmol/L (98-107); Globulin 2.1 g/dL (1.3-4.6); Glucose 112 mg/dL (65-115); Osmolality Calculated 291 mOsm/kg (285-295); Potassium 3.2 mmol/L (3.5-5.1); Sodium 140 mmol/L (136-145); Total Bilirubin 0.6 mg/dL (0.15-1.2); Total Protein 6.3 g/dL (6.6-8.7)
[2020-10-05 11:57] LABS: Creatinine Clr Calc Pharmacy 53.7231; INR 0.99 (0.8-1.2)
[2020-10-05 11:59] LABS: Troponin(5th) Baseline 10 ng/L (0-10)
[2020-10-05 12:35] VITALS: BP 173/84; PULSE 62; RESP 18; O2SAT 94
--- NOTE | 2020-10-05 13:07 | ECG_ITS ---
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
[2020-10-05] MEDS: labetalol 5 mg/mL SDV 20mL 10 MG IVP (13:14)
[2020-10-05 13:49] VITALS: BP 180/79; PULSE 80; RESP 16; O2SAT 95
[2020-10-05 13:49] LABS: Troponin 5 2HR 9.62 ng/L (0-10)
[2020-10-05 14:00] LABS: Troponin 5 2HR Delta -0.38 ABS# (0-10)
[2020-10-05 14:32] VITALS: BP 195/77; PULSE 93; RESP 18; TEMP 37.1; O2SAT 95
== END 2020-10-05 14:36 | disposition home or self-care (01) ==
PROVIDERS: Emergency Provider Emergency Medicine; PCP Family Medicine
DX: R07.9 Chest pain, unspecified (principal); Z79.02 Long term (current) use of antithrombotics/antiplatelets; I25.10 Atherosclerotic heart disease of native coronary artery without angina pectoris; E78.5 Hyperlipidemia, unspecified; I10 Essential (primary) hypertension; Z87.891 Personal history of nicotine dependence
CPT/HCPCS: 12345; 36415; 71045; 80053; 84484; 85025; 85610; 93005; 96374; 96375; 99283; 99284; J1170; J1885; J2405; J3490

== ENCOUNTER 2020-11-08 14:30 | Observation (INO) | payer MEDICARE, OTHER, SELFPAY ==
[2020-11-08] VITALS (11 sets, daily range): BP systolic 144–208; BP diastolic 76–117; PULSE 71–89; RESP 16–30; TEMP 36.6–36.9; O2SAT 94–97; BMI 29.9
--- NOTE | 2020-11-08 14:32 | ECG_ITS ---
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 Measurements Intervals [place] Rate: 77 P: 65 [place]: 128 QRS: -3 QRSD: 79 T: 49 QT: 378 QTc: 428 Interpretive Statements SINUS RHYTHM INTERPRETATION BASED ON A DEFAULT AGE OF 40 YEARS Compared to ECG 10/05/2020 13:20:43 Sinus bradycardia no longer present Electronically Signed On 11-08-2020 19:41:57 MICROFILM CAMERA OPERATOR by Karime Solano M.D. [id number] f
--- NOTE | 2020-11-08 14:32 | XRR_ITS ---
PROCEDURE INFORMATION: Exam: XR Chest, 1 View Exam date and time: 11/08/2020 3:19 PM Age: 70 years old Clinical indication: Chest pain; Type not specified; Prior surgery; Surgery type: Stent, neck; Additional info: Cp TECHNIQUE: Imaging protocol: XR of the chest Views: 1 view. COMPARISON: CR XR chest 1V portable [id number] 10/05/2020 11:13 AM FINDINGS: Lungs: Unremarkable. No consolidation. Pleural space: Unremarkable. No pleural effusion. No pneumothorax. Heart/Mediastinum: Unremarkable. No cardiomegaly. Bones/joints: Unremarkable. Metallic hardware is seen in the cervical spine. Similar findings is seen compared to prior examination XR/XR chest 1V portable [id number] IMPRESSION: No acute findings. Stable orthopedic hardware cervical spine
--- NOTE | 2020-11-08 15:31 | ED_ITS ---
Documented by User: Dnaiel Sorenson MD 11/08/20 17:02 HPI - Chest Pain General: Chief Complaint: Chest Pain Stated Complaint: CP, SOB Time Seen by Provider: 11/08/20 15:06 Source: patient Mode of arrival: ambulatory Limitations: no limitations History of Present Illness: HPI narrative: 70-year-old female with history of coronary artery disease states she has been having a pressure type pain in the center of her chest over the last day. She denies any worsening or improving factors. States the pain is a 6 out of 10. Some nausea no vomiting. She denies any abdominal pain. She denies any shortness of breath. Associated symptoms: Deny abdominal pain, dyspnea, fever(s), nausea or vomiting Review of Systems Const: Denies: fever(s), chills, body aches or change in appetite Eyes: Denies: blurry vision or eye discomfort ENMT: Denies: throat pain or dental pain Card: Reports: chest pain Resp: Denies: dyspnea GI: Denies: abdominal pain, nausea, vomiting or diarrhea : Denies: dysuria Musc: Denies: neck pain or back pain Skin/Breast: Denies: rash Neuro: Denies: headache(s) Psych: Denies: depression Shayan/Lymph: Denies: easy bruising All/Imm: Denies: urticaria PFSH ED PFSH: Medical History Abdominal aortic aneurysm (AAA) 3.0 cm to 5.0 cm in diameter in female 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 Hazel, 2013 S/P cataract extraction and insertion of intraocular lens bilateral S/P cervical spinal fusion ACDFF Dr. Dawn 12/07/2015 S/P right coronary artery (RCA) stent placement (~05/2019) Family History Other Cancer Rheumatoid arthritis Denies family history of Chronic kidney disease (CKD) Systemic lupus erythematosus (SLE) in adult Lung disease Hypertension Social History Smoking and tobacco status: former smoker Alcohol intake: current Alcohol intake frequency: holidays/special occasions only History of recent travel: No (12/10/19) Physical Exam Const: COMMON NORMALS: no acute distress, patient oriented x3 and healthy appearing HENMT: COMMON NORMALS: normocephalic and atraumatic HEAD & SCALP: normocephalic and atraumatic Eye: COMMON NORMALS: Equal, round and reactive pupils present and EOMs intact bilaterally PUPIL: Yes Equal, round and reactive pupils present Neck/C-Spine: COMMON NORMALS: full ROM and supple Chest: COMMONS NORMALS: normal inspection of the chest and normal palpation of entire chest wall Resp: COMMON NORMALS: normal respiratory effort, No retractions, No use of accessory muscles and clear to auscultation bilaterally AUSCULTATION: clear to auscultation bilaterally Cardio: COMMON NORMALS: regular rate, regular rhythm and No murmurs present (Cardio) RATE: regular rate RHYTHM: regular rhythm GI: COMMON NORMALS: Normal to inspection, nondistended, normoactive bowel sounds present, Soft to palpation, non-tender and no masses PALPATION: Yes Soft to palpation Extremity: COMMON NORMALS: normal to inspection and full ROM Neuro: COMMON NORMALS: patient oriented x3, moves all extremities and no focal motor deficits Psych: COMMON NORMALS: mental status grossly normal, Normal thought process present and cooperative THOUGHT PROCESS: Normal thought process present Skin: COMMON NORMALS: no rashes or lesions noted and no wounds GENERAL SKIN EXAM: no rashes or lesions noted Course Vital Signs: Vital signs: Vital Signs Temperature 98.5 F 11/08/20 14:56 Pulse Rate 72 11/08/20 16:09 Respiratory Rate 20 H 11/08/20 16:09 Blood Pressure 208/117 11/08/20 16:09 Pulse Oximetry 96 11/08/20 16:09 MDM - Chest Pain MDM Narrative: Medical decision making narrative: Brenna presents here with chest pain that is since resolved. Her blood pressures improved a little as well from nitro. Patient's pain has resolved initial troponin is normal. She does have multiple risk factors and history of coronary disease. I spoke to hospitalist will admit for observation. Lab Data: Labs: Lab Results 11/08/20 11/08/20 11/08/20 Range/Units 15:45 15:45 15:45 WBC 6.4 (4.0-10.0) 10^3/ uL RBC 4.42 (4.1-5.3) 10^6/u L Hgb 11.1 L (11.5-15.3) g/dL Hct 35.2 L (37.0-47.0) % MCV 79.6 L (81-99) fL MCH 25.1 L (28.0-34.0) pg MCHC 31.5 (30.0-36.0) g/dL RDW 15.5 H (12.1-15.1) % Plt Count 279 (130-400) 10^3/c mm MPV 11.0 H (7.4-10.4) fL Neut % (Auto) 71.8 % Lymph % (Auto) 17.1 % Osborne % (Auto) 8.8 % Eos % (Auto) 1.4 % Baso % (Auto) 0.6 % Neut # (Auto) 4.56 (1.8-7.7) 10^3/u L Lymph # (Auto) 1.1 (0.8-4.8) 10^3/u L [place]borne # (Auto) 0.6 (0.2-0.9) 10^3/u L Eos # (Auto) 0.1 (0.0-0.8) 10^3/u L Baso # (Auto) 0.0 (0.0-0.1) 10^3/u L Nucleated RBC % (a uto) 0 % Nucleated RBCs # 0.0 /100WBC PT 13.70 (12.1-14.9) SECO NDS INR 1.01 (0.8-1.2) Sodium 138 (136-145) mmol/L Potassium 3.7 (3.5-5.1) mmol/L Chloride 103 (98-107) mmol/L Carbon Dioxide 25 (22-29) mmol/L Anion Gap 13.7 (5-19) BUN 12 (8-23) mg/dL Creatinine 1.0 H (0.5-0.9) mg/dL GFR Calculation Not Reportable Glucose 90 (65-115) mg/dL Calculated Osmolal ity 285 (285-295) mOsm/k g Calcium 9.9 (8.5-10.5) mg/dL Total Bilirubin 0.5 (0.15-1.2) mg/dL AST 21 (0-32) U/L ALT 17 (0-33) U/L Alkaline Phosphata se 125 H (35-105) IU/L Troponin T Baselin e (0-10) ng/L Total Protein 5.9 L (6.6-8.7) g/dL Albumin 3.9 (3.5-5.2) g/dL Globulin 2.0 (1.3-4.6) g/dL 11/08/20 Range/Units 15:45 WBC (4.0-10.0) 10^3/ uL RBC (4.1-5.3) 10^6/u L Hgb (11.5-15.3) g/dL Hct (37.0-47.0) % MCV (81-99) fL MCH (28.0-34.0) pg MCHC (30.0-36.0) g/dL RDW (12.1-15.1) % Plt Count (130-400) 10^3/c mm MPV (7.4-10.4) fL Neut % (Auto) % Lymph % (Auto) % Osborne % (Auto) % Eos % (Auto) % Baso % (Auto) % Neut # (Auto) (1.8-7.7) 10^3/u L Lymph # (Auto) (0.8-4.8) 10^3/u L Osborne # (Auto) (0.2-0.9) 10^3/u L Eos # (Auto) (0.0-0.8) 10^3/u L Baso # (Auto) (0.0-0.1) 10^3/u L Nucleated RBC % (a uto) % Nucleated RBCs # /100WBC PT (12.1-14.9) SECO NDS INR (0.8-1.2) Sodium (136-145) mmol/L Potassium (3.5-5.1) mmol/L Chloride (98-107) mmol/L Carbon Dioxide (22-29) mmol/L Anion Gap (5-19) BUN (8-23) mg/dL Creatinine (0.5-0.9) mg/dL GFR Calculation Glucose (65-115) mg/dL Calculated Osmolal ity (285-295) mOsm/k g Calcium (8.5-10.5) mg/dL Total Bilirubin (0.15-1.2) mg/dL AST (0-32) U/L ALT (0-33) U/L Alkaline Phosphata se (35-105) IU/L Troponin T Baselin e 8 (0-10) ng/L Total Protein (6.6-8.7) g/dL Albumin (3.5-5.2) g/dL Globulin (1.3-4.6) g/dL Imaging Data^: CXR: Radiologist's impression: [address] [address] XRay Report Signed Patient: Rosie Martinez Unit #: [id number] : 1950 Age/Sex: 70 / F ADM Date: 11/08/20 Loc: ER Room/Bed: Attending Dr: Ordering Provider/Ordering MD: Daniel Sorenson MD Date of Service: 11/08/20 Procedure(s): XR chest 1V portable [id number] Accession Number(s): [id number] Report Number: [id number] PROCEDURE INFORMATION: Exam: XR Chest, 1 View Exam date and time: 11/08/2020 3:19 PM Age: 70 years old Clinical indication: Chest pain; Type not specified; Prior surgery; Surgery type: Stent, neck; Additional info: Cp TECHNIQUE: Imaging protocol: XR of the chest Views: 1 view. COMPARISON: CR XR chest 1V portable [id number] 10/05/2020 11:13 AM FINDINGS: Lungs: Unremarkable. No consolidation. Pleural space: Unremarkable. No pleural effusion. No pneumothorax. Heart/Mediastinum: Unremarkable. No cardiomegaly. Bones/joints: Unremarkable. Metallic hardware is seen in the cervical spine. Similar findings is seen compared to prior examination XR/XR chest 1V portable [id number] IMPRESSION: No acute findings. Stable orthopedic hardware cervical spine EKG Data^: EKG 1: Attestation: I personally reviewed and interpreted this EKG as follows: EKG interpretation date: 11/08/20 EKG interpretation time: 15:04 Interpretation: nsr hr [address] or t wave abnormalities qrs 79 qtc 409 Discharge Plan Discharge Prescriptions: No Action valsartan 160 mg tablet 160 mg PO DAILY Qty: 90 RF: 2 simvastatin 20 mg tablet 20 mg PO DAILY RF: 0 nitroglycerin 0.4 mg tablet, sublingual 0.4 mg SUBLINGUAL Q5M PRN (Reason: Chest Pain) RF: 0 escitalopram oxalate 10 mg tablet 10 mg PO DAILY RF: 0 prednisone 2.5 mg tablet 7.5 mg PO DAILY Qty: 90 RF: 1 pantoprazole 40 mg tablet,delayed release (DR/EC) 40 mg PO DAILY Qty: 30 RF: 3 cholecalciferol (vitamin D3) 50 mcg (2,000 unit) capsule 50 mcg PO DAILY Qty: 30 RF: 3 atorvastatin 40 mg tablet 40 mg PO DAILY RF: 0 carvedilol 12.5 mg tablet 18.75 mg PO BID RF: 0 indapamide 1.25 mg tablet 2.5 mg PO DAILY Qty: 180 RF: 3 losartan 50 mg Tablet 50 mg PO BID RF: 0 naproxen [Naprosyn] 500 mg tablet 500 mg PO BID PRN (Reason: pain) Qty: 20 RF: 0 Coding Level of Care Code ED Furniture Sales Consultant for Chg Fwd Exam Comprehensive Documented by User: Yuan Slade MD 11/08/20 17:00 HPI - Chest Pain General: Chief Complaint: Chest Pain Stated Complaint: CP, SOB Time Seen by Provider: 11/08/20 15:06 PFS ED PFSH: Medical History Abdominal aortic aneurysm (AAA) 3.0 cm to 5.0 cm in diameter in female 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 Hazel, 2014 S/P cataract extraction and insertion of intraocular lens bilateral S/P cervical spinal fusion ACDFF Dr. Dawn 12/07/2015 S/P right coronary artery (RCA) stent placement (~05/2019) Family History Other Cancer Rheumatoid arthritis Denies family history of Chronic kidney disease (CKD) Systemic lupus erythematosus (SLE) in adult Lung disease Hypertension Social History Smoking and tobacco status: former smoker Alcohol intake: current Alcohol intake frequency: holidays/special occasions only History of recent travel: No (12/10/19) Course Vital Signs: Vital signs: Vital Signs Temperature 98.5 F 11/08/20 14:56 Pulse Rate 72 11/08/20 16:09 Respiratory Rate 20 H 11/08/20 16:09 Blood Pressure 208/117 11/08/20 16:09 Pulse Oximetry 96 11/08/20 16:09 MDM - Chest Pain 2 Lab Data: Labs: Lab Results 11/08/20 11/08/20 11/08/20 Range/Units 15:45 15:45 15:45 WBC 6.4 (4.0-10.0) 10^3/ uL RBC 4.42 (4.1-5.3) 10^6/u L Hgb 11.1 L (11.5-15.3) g/dL Hct 35.2 L (37.0-47.0) % MCV 79.6 L (81-99) fL MCH 25.1 L (28.0-34.0) pg MCHC 31.5 (30.0-36.0) g/dL RDW 15.5 H (12.1-15.1) % Plt Count 279 (130-400) 10^3/c mm MPV 11.0 H (7.4-10.4) fL Neut % (Auto) 71.8 % Lymph % (Auto) 17.1 % Osborne % (Auto) 8.8 % Eos % (Auto) 1.4 % Baso % (Auto) 0.6 % Neut # (Auto) 4.56 (1.8-7.7) 10^3/u L Lymph # (Auto) 1.1 (0.8-4.8) 10^3/u L Osborne # (Auto) 0.6 (0.2-0.9) 10^3/u L Eos # (Auto) 0.1 (0.0-0.8) 10^3/u L Baso # (Auto) 0.0 (0.0-0.1) 10^3/u L Nucleated RBC % (a uto) 0 % Nucleated RBCs # 0.0 /100WBC PT 13.70 (12.1-14.9) SECO NDS INR 1.01 (0.8-1.2) Sodium 138 (136-145) mmol/L Potassium 3.7 (3.5-5.1) mmol/L Chloride 103 (98-107) mmol/L Carbon Dioxide 25 (22-29) mmol/L Anion Gap 13.7 (5-19) BUN 12 (8-23) mg/dL Creatinine 1.0 H (0.5-0.9) mg/dL GFR Calculation Not Reportable Glucose 90 (65-115) mg/dL Calculated Osmolal ity 285 (285-295) mOsm/k g Calcium 9.9 (8.5-10.5) mg/dL Total Bilirubin 0.5 (0.15-1.2) mg/dL AST 21 (0-32) U/L ALT 17 (0-33) U/L Alkaline Phosphata se 125 H (35-105) IU/L Troponin T Baselin e (0-10) ng/L Total Protein 5.9 L (6.6-8.7) g/dL Albumin 3.9 (3.5-5.2) g/dL Globulin 2.0 (1.3-4.6) g/dL 11/08/20 Range/Units 15:45 WBC (4.0-10.0) 10^3/ uL RBC (4.1-5.3) 10^6/u L Hgb (11.5-15.3) g/dL Hct (37.0-47.0) % MCV (81-99) fL MCH (28.0-34.0) pg MCHC (30.0-36.0) g/dL RDW (12.1-15.1) % Plt Count (130-400) 10^3/c mm MPV (7.4-10.4) fL Neut % (Auto) % Lymph % (Auto) % [place]borne % (Auto) % Eos % (Auto) % Baso % (Auto) % Neut # (Auto) (1.8-7.7) 10^3/u L Lymph # (Auto) (0.8-4.8) 10^3/u L [place]borne # (Auto) (0.2-0.9) 10^3/u L Eos # (Auto) (0.0-0.8) 10^3/u L Baso # (Auto) (0.0-0.1) 10^3/u L Nucleated RBC % (a uto) % Nucleated RBCs # /100WBC PT (12.1-14.9) SECO NDS INR (0.8-1.2) Sodium (136-145) mmol/L Potassium (3.5-5.1) mmol/L Chloride (98-107) mmol/L Carbon Dioxide (22-29) mmol/L Anion Gap (5-19) BUN (8-23) mg/dL Creatinine (0.5-0.9) mg/dL GFR Calculation Glucose (65-115) mg/dL Calculated Osmolal ity (285-295) mOsm/k g Calcium (8.5-10.5) mg/dL Total Bilirubin (0.15-1.2) mg/dL AST (0-32) U/L ALT (0-33) U/L Alkaline Phosphata se (35-105) IU/L Troponin T Baselin e 8 (0-10) ng/L Total Protein (6.6-8.7) g/dL Albumin (3.5-5.2) g/dL Globulin (1.3-4.6) g/dL Discharge Plan Discharge Prescriptions: No Action valsartan 160 mg tablet 160 mg PO DAILY Qty: 90 RF: 2 simvastatin 20 mg tablet 20 mg PO DAILY RF: 0 nitroglycerin 0.4 mg tablet, sublingual 0.4 mg SUBLINGUAL Q5M PRN (Reason: Chest Pain) RF: 0 escitalopram oxalate 10 mg tablet 10 mg PO DAILY RF: 0 prednisone 2.5 mg tablet 7.5 mg PO DAILY Qty: 90 RF: 1 pantoprazole 40 mg tablet,delayed release (DR/EC) 40 mg PO DAILY Qty: 30 RF: 3 cholecalciferol (vitamin D3) 50 mcg (2,000 unit) capsule 50 mcg PO DAILY Qty: 30 RF: 3 atorvastatin 40 mg tablet 40 mg PO DAILY RF: 0 carvedilol 12.5 mg tablet 18.75 mg PO BID RF: 0 indapamide 1.25 mg tablet 2.5 mg PO DAILY Qty: 180 RF: 3 losartan 50 mg Tablet 50 mg PO BID RF: 0 naproxen [Naprosyn] 500 mg tablet 500 mg PO BID PRN (Reason: pain) Qty: 20 RF: 0 Coding Level of Care Code ED Furniture Sales Consultant for Chg Fwd Exam Comprehensive
[2020-11-08 16:09] LABS: Basophils % 0.6 %; Eosinophils # 0.1 10^3/uL (0.0-0.8); Eosinophils % 1.4 %; Hematocrit 35.2 % (37.0-47.0); Hemoglobin 11.1 g/dL (11.5-15.3); Lymphocytes # 1.1 10^3/uL (0.8-4.8); Lymphocytes % 17.1 %; Mean Corpuscular HGB Conc 31.5 g/dL (30.0-36.0); Mean Corpuscular Hemoglobin 25.1 pg (28.0-34.0); Mean Corpuscular Volume 79.6 fL (81-99); Monocytes # 0.6 10^3/uL (0.2-0.9); Monocytes % 8.8 %; Neutrophils # 4.56 10^3/uL (1.8-7.7); Neutrophils % 71.8 %; Nucleated Red Blood Cells % 0 %; Platelet Count 279 10^3/cmm (130-400); Red Blood Count 4.42 10^6/uL (4.1-5.3); Red Cell Distribution Width 15.5 % (12.1-15.1); White Blood Count 6.4 10^3/uL (4.0-10.0)
[2020-11-08 16:30] LABS: Alanine Aminotransferase 17 U/L (0-33); Albumin Level 3.9 g/dL (3.5-5.2); Alkaline Phosphatase 125 IU/L (35-105); Anion Gap 13.7 (5-19); Aspartate Amino Transferase 21 U/L (0-32); Blood Urea Nitrogen 12 mg/dL (8-23); Calcium 9.9 mg/dL (8.5-10.5); Carbon Dioxide 25 mmol/L (22-29); Chloride 103 mmol/L (98-107); Glucose 90 mg/dL (65-115); Osmolality Calculated 285 mOsm/kg (285-295); Potassium 3.7 mmol/L (3.5-5.1); Sodium 138 mmol/L (136-145); Total Bilirubin 0.5 mg/dL (0.15-1.2); Total Protein 5.9 g/dL (6.6-8.7)
[2020-11-08 16:32] LABS: INR 1.01 (0.8-1.2); Troponin(5th) Baseline 8 ng/L (0-10)
--- NOTE | 2020-11-08 16:32 | ECG_ITS ---
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 Measurements Intervals [place] Rate: 70 P: 58 TN: 127 QRS: -8 QRSD: 82 T: 47 QT: 405 QTc: 438 Interpretive Statements SINUS RHYTHM Compared to ECG 11/08/2020 15:04:13 No significant changes Electronically Signed On 11-08-2020 19:43:47 HOST/HOSTESS HEAD by Karime Solano M.D. [id number]
[2020-11-08] MEDS: nitroglycerin 0.4 mg sublingual Tablet SUBLINGUAL (16:51)
[2020-11-08] MEDS: aspirin 81 mg Chew Tablet 324 MG PO (16:51)
--- NOTE | 2020-11-08 17:15 | P.HP_ITS ---
Providers/Chief Complaint Primary Care Provider: Silvia Peng MD Chief Complaint: CP, SOB History of Present Illness 70-year-old female with a past medical history significant for abdominal aortic aneurysm, peripheral vascular disease, obstructive sleep apnea, type 1 Arnold- Chiari malformation, hypertension, hyperlipidemia, and coronary artery disease s/p PCI with proximal- mid RCA stent in 2019 who is now presenting to the hospital with chest pain. Patient was seen by cardiology clinic initially today where she had noted ongoing pain for over 2 hours. This was sub-sternal radiation towards abd. No respiratory complaints. Denied lightheadeness, dizziness or diaphoresis. No recent fever, chills, nausea or vomiting. Laboratory workup on arrival showed a WBC of 6.4, hemoglobin 11.1, hematocrit 35.2 and a platelet count of 279. sodium 138, potassium 3.7, chloride 103, bicarb 25, BUN 12 and creatinine 1.0. Initial Troponin T baseline was 8. EKG did not show any evidence of acute ischemia. In ER patient was given Aspirin 325 mg PO x1 and Nitro after which her chest pain had resolved. Prior cardiac work up 05/2019 Coronary angiogram which revealed 0% stenosis of the left main, LAD, 30% st enosis of the proximal circumflex to mid circumflex, and a 95% stenosis of the proximal to mid RCA which was treated with balloon angioplasty followed by stent placement and post dilation with noncompliant balloon. 03/2020 Myocardial Perfusion 1. Unremarkable myocardial perfusion imaging 2. Normal LV ejection fraction of 83%. 3. LV wall motion analysis revealing no gross wall motion normalities. 4. Normal LV volume. No significant coronary ischemia, based on the above findings 03/2020 NM Stress test No significant EKG changes with the LexiScan infusion No LexiScan induced chest pain or cardiac arrhythmia Normal blood pressure and heart rate response Unremarkable myocardial perfusion imaging Normal LV ejection fraction of 83%. LV wall motion analysis revealing no gross wall motion normalities. Normal LV volume. No significant coronary ischemia, based on the above findings Review of Systems General: Reports: 10 or more systems reviewed and unremarkable except in HPI and below Medications/Allergies Home Medications Medication Instructions Recorded Confirmed Last Taken Type escitalopram oxalate 10 mg tablet 10 mg PO DAILY tab 12/10/19 11/08/20 11/07/20 History nitroglycerin 0.4 mg sublingual 0.4 mg SUBLINGUAL Q5M PRN 12/10/19 11/08/20 Unknown History tablet cholecalciferol (vitamin D3) 50 50 mcg PO DAILY #30 cap 03/29/20 11/08/20 11/07/20 Rx mcg (2,000 unit) capsule pantoprazole 40 mg tablet,delayed 40 mg PO DAILY #30 tab 03/29/20 11/08/20 11/07/20 Rx release prednisone 2.5 mg tablet 7.5 mg PO DAILY #90 tab 03/29/20 11/08/20 11/07/20 Rx indapamide 1.25 mg tablet 2.5 mg PO DAILY #180 tab 06/26/20 11/08/20 11/07/20 Rx valsartan 160 mg tablet 160 mg PO DAILY #90 tab 07/24/20 11/08/20 10/04/20 Rx naproxen [Naprosyn] 500 mg PO BID PRN #20 tab 10/05/20 11/08/20 Unknown Rx atorvastatin 40 mg tablet 40 mg PO DAILY 10/18/20 11/08/20 11/07/20 History carvedilol 12.5 mg tablet 18.75 mg PO BID tab 10/18/20 11/08/20 11/07/20 History losartan 50 mg PO BID 11/08/20 11/08/20 Unknown History simvastatin 20 mg tablet 20 mg PO DAILY 11/08/20 11/08/20 Unknown History Allergies Allergy/AdvReac Type Severity Reaction Status Date / Time codeine Allergy Unknown Unknown Verified 11/08/20 14:07 morphine Allergy Unknown Unknown Verified 11/08/20 14:07 Opioids - Morphine Analogues Allergy Unknown Unknown Verified 11/08/20 14:07 Opioids-Meperidine and Allergy Unknown Unknown Verified 11/08/20 14:07 Related Opioids-Methadone and Related Allergy Unknown Unknown Verified 11/08/20 14:07 hydrocodone Allergy VOMITING Verified 11/08/20 14:07 AND PASSING OUT oxycodone Allergy VOMITING,PASSES Verified 11/08/20 14:07 OUT PFSH Acute PFSH: Medical History (Updated 11/08/20 @ 18:08 by Yuan Slade MD) Abdominal aortic aneurysm (AAA) 3.0 cm to 5.0 cm in diameter in female 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 Hazel, 2013 S/P cataract extraction and insertion of intraocular lens bilateral S/P cervical spinal fusion ACDFF Dr. Dawn 12/07/2015 S/P right coronary artery (RCA) stent placement (~05/2019) Family History Other Cancer Rheumatoid arthritis Denies family history of Chronic kidney disease (CKD) Systemic lupus erythematosus (SLE) in adult Lung disease Hypertension Social History Smoking and tobacco status: former smoker Alcohol intake: current Alcohol intake frequency: holidays/special occasions only History of recent travel: No (12/10/19) Vitals/I&O/Wt Last Vital Signs Temp 98.5 F 11/08/20 14:56 Pulse 72 11/08/20 16:09 Resp 20 H 11/08/20 16:09 BP 208/117 11/08/20 16:09 Pulse Ox 96 11/08/20 16:09 Weight last 48 hrs Weight 81.647 kg Physical Exam Narrative: EXAM NARRATIVE: Alert, awake oriented x 3 , NAD HEENT : Grossly unremarkable CVS : NSR Chest : non-labored respiration Abd: Soft NT, ND Ext : No edema Data : 11/08/20 15:45 11/08/20 15:45 A&P Assessment and plan (1) Chest pain: Status: Acute (2) Hypertension, essential: Status: Acute (3) Coronary artery disease: Status: Acute Qualifiers: Associated angina: without angina Coronary Disease-Associated Artery/[place] type: [place] artery [place] vs. transplanted heart: [place] heart Qualified Code(s): I25.10 - Atherosclerotic heart disease of [place] coronary artery without angina pectoris (4) Hyperlipidemia: Status: Acute (5) Obstructive sleep apnea: Status: Acute (6) Peripheral vascular disease: Status: Acute (7) Abdominal aortic aneurysm (AAA) 3.0 cm to 5.0 cm in diameter in female: Status: Acute Chest pain r/o ACS hx of CAD s/p hx of RCA stent ( 2019) - Initial troponin negative - Follow up on repeat troponin - SL Nitro for chest pain - Continue aspirin 81 mg PO daily Statin - Coreg 25 mg PO BID - Recent NM stress 03/2020 - No reversible ischemia - Will hold off on repeat stress test - D/w Cardiology - Add Imdur 30 mg ER daily - Decrease losartan to 25 mg PO daily - Perfecto consider repeat ECHO - NPO at midnight - if increasing troponin or cp recurrance will likely need cath Hypertension / Dyslipidemia / PVD - Meds as above AAA - Noted in EMR - Patient denied diagnosis - Documented 5.0cm - Will obtain abd US - No prior sx intervention DVT ppx - Lovenox 40 mg sq daily Attestations Medical Necessity Statement*: Patient will be placed in observation for cardiac eval. Time Spent in Patient Care: Greater than 35 minutes (>than 50% of time spent in counselling and/or direct pt care on unit) . Coding Level of Care Code Acute Content Architect for Chg Fwd Diagnoses Chest pain R07.9 Hypertension, essential I10 Coronary artery disease I25.10 Associated angina: without angina Coronary Disease-Associated Artery/Lesion type: [place] artery [place] vs. transplanted heart: [place] heart Hyperlipidemia E78.5 Obstructive sleep apnea G47.33 Peripheral vascular disease I73.9 Abdominal aortic aneurysm (AAA) 3.0 cm to 5.0 cm in diameter in female I71.4
[2020-11-08 19:03] LABS: Troponin 5 2HR Delta 0 ABS# (0-10)
[2020-11-08 19:17] LABS: Lipase 43 U/L (13-60)
[2020-11-08] MEDS: isosorbide mononitrate ER 30 mg Tablet PO (19:55)
[2020-11-08] MEDS: enoxaparin 40 mg/0.4 mL Syringe SUBCUT (19:55)
[2020-11-08] MEDS: sodium chloride 0.9% 1,000 ML 50 ML IV (19:55)
--- NOTE | 2020-11-08 20:11 | PC.NURSE ---
Addendum entered by Karla Goldman RN 11/08/20 20:30: Order for BP placed by Dr Jeffers. Medication given as ordered. Original Note: Patient received from ED via wheelchair. Telemetry applied and VS obtained. Patient currently BP 225/112. Patient reports just feel a little funny. Patient moving around quite freely. No distress observed. Administered medications as ordered to include isosorbide 30mg PO. Informed Dr Jeffers. Waiting for orders.
[2020-11-08] MEDS: hyDRALAzine 20 mg/mL INJ 1 mL 5 MG IVP (20:32)
--- NOTE | 2020-11-08 21:06 | PC.NURSE ---
Patient current BP 184/90. Improved from last.
[2020-11-08 22:26] LABS: Troponin 5 6HR 8.86 ng/L (0-10); Troponin 5 6HR Delta 0.86 ng/L (0-12)
[2020-11-08] MEDS: acetaminophen 325 mg Tablet 650 MG PO (23:13)
--- NOTE | 2020-11-08 23:15 | PC.NURSE ---
Patient c/o headache 10/10. Current BP 187/76. Administered Tylenol as ordered. Informed Dr Jeffers of current BP. No new orders at this time.
[2020-11-09] VITALS (9 sets, daily range): BP systolic 132–196; BP diastolic 71–74; PULSE 61–86; RESP 14–20; TEMP 36.4–37; O2SAT 93–97
[2020-11-09 04:18] LABS: Alanine Aminotransferase 14 U/L (0-33); Albumin Level 3.2 g/dL (3.5-5.2); Alkaline Phosphatase 103 IU/L (35-105); Anion Gap 11.6 (5-19); Aspartate Amino Transferase 19 U/L (0-32); Blood Urea Nitrogen 13 mg/dL (8-23); Calcium 9.5 mg/dL (8.5-10.5); Carbon Dioxide 24 mmol/L (22-29); Chloride 110 mmol/L (98-107); Globulin 2.1 g/dL (1.3-4.6); Glucose 101 mg/dL (65-115); Magnesium 1.9 mg/dL (1.7-2.3); Osmolality Calculated 294 mOsm/kg (285-295); Potassium 3.6 mmol/L (3.5-5.1); Sodium 142 mmol/L (136-145); Total Bilirubin 0.5 mg/dL (0.15-1.2); Total Protein 5.3 g/dL (6.6-8.7)
[2020-11-09 04:20] LABS: Chol HDL Ratio 6.81 mg/dL (0.0-4.40); Cholesterol 184 mg/dL (0-200); HDL Cholesterol 27 mg/dL (60-100); LDL Cholesterol Calculated 121 mg/dL (50-129); LDL HDL Ratio 4.48 RATIO (0.00-3.22); Triglycerides 180 mg/dL (0-150)
--- NOTE | 2020-11-09 07:00 | USCV_ITS ---
Rosie Martinez Age: 70 Gender: F : 1950 Exam Date: 11/09/2020 10:49 Ordering Phys: Yuan Slade MD Technologist: Carmen Ramirez Exam Location: [facility] [place] Indication: known AAA HISTORY: Diameter (cm) AP x Transverse x Length Velocity (cm/s) Waveform Prox Aorta: 2.73 x 3.37 x 60.70 Mid Aorta: 3.12 x 3.77 x 48.50 Distal Aorta: 3.52 x 4.32 x 40.00 Right Iliac Prox: 1.94 x 2.47 x 191.70 Left Iliac Prox: 1.18 x 1.53 x 239.00 Stent Prox Landing x x Aneurysmal Sac Max x x Lt Lat Sac Dim Rt Lat Sac Dim Stent Dist Landing x x Right Iliac Stent x x Left Iliac Stent x x Right Renal Art Left Renal Art FINDINGS: Comparison:. 07/23/19. A moderate abdominal aortic aneurysm is noted with a maximal diameter of 4.3 cm. Minimal increase since 2019.no evidence of periaortic fluid is detected. Mild ectasis with atherosclerosis. Iliac arteries are ectatic with atherosclerotic plaque. CONCLUSIONS AAA with minimal increase since 2019, maximum diameter is 4.[address] Niya Oconnell DO (Electronically Signed) Final Date: 09 November 2020 13:12 S
[2020-11-09] MEDS: famotidine 20 mg Tablet PO (07:55)
[2020-11-09] MEDS: predniSONE 5 mg Tablet 2.5 MG PO (07:56)
[2020-11-09] MEDS: acetaminophen 325 mg Tablet 650 MG PO (07:57)
[2020-11-09] MEDS: atorvastatin 40 mg Tablet PO (07:57)
[2020-11-09] MEDS: losartan 50 mg Tablet 25 MG PO (07:57)
[2020-11-09] MEDS: carvedilol 25 mg Tablet PO (07:57)
[2020-11-09] MEDS: escitalopram 10 mg Tablet PO (07:58)
--- NOTE | 2020-11-09 09:47 | PC.CHAP ---
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 [] Patient/Family/Request visit [] Outpatient visit [] Follow-up visit [] Physician referral [] Code/Alert [] Routine visit [] Staff referral [] Actively dying [] Patient sleeping [] Family support [] [] Out of room [] Palliative care [] [] Receiving care in room [] Pre-surgical visit [] Trauma [] Long length of stay [] ICU visit [] Other: Relational/Emotional Strength [] Patient feels connected with others/family/visitors/staff [] Distress [] Loneliness/isolation [] Abandonment Spirituality of Patient [] Person of Kassi [] Attends Holiness of their Kassi [] Believes in Prayer [] Reads Bible or Evangelical materials [] There are Spiritual issues to be addressed Shingle Cutter Interventions [] Prayer [] Active listening [] Non-anxious presence [] Spiritual/emotional support [] Crisis/trauma care [] Spiritual counseling [] Bereavement support [] Provided bereavement packet [] Provided Bible/devotional materials [] Provided toy/stuffed animal, coloring book to patient or family member [] Provided Communion [] Anointing/[place] [] Salvation [] Completed spiritual assessment [] Other: Impact on Illness or Injury [] Angry [] Fearful [] Anxious [] Often cries [] Exhaustion [] Unable to work [] Unable to attend samaritan [] Unable to walk/stand [] Unable to read [] Unable to drive [] Unable to eat/drink [] Unable to sleep [] Unable to be with family [] Patient intubated [] Other: Summary 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
[2020-11-09 10:08] LABS: Troponin T (5th) Once 11 ng/L (0-10)
[2020-11-09] MEDS: amlodipine 5 mg Tablet PO (13:08)
--- NOTE | 2020-11-09 15:19 | P.DS_ITS ---
Discharge Providers Date of Admission: 11/08/20 16:55 Date of Discharge: November 09, 2020 Attending Provider at Admission: Yuan Slade Attending Provider at Discharge: Yuan Slade Primary Care Provider: Silvia Peng MD Diagnoses at Discharge Discharge Diagnosis (1) Chest pain: Status: Resolved (2) Hypertension, essential: Status: Acute (3) Coronary artery disease: Status: Acute Qualifiers: Associated angina: without angina Coronary Disease-Associated Artery/Lesion type: [place] artery [place] vs. transplanted heart: [place] heart Qualified Code(s): I25.10 - Atherosclerotic heart disease of [place] coronary artery without angina pectoris (4) Hyperlipidemia: Status: Acute (5) Obstructive sleep apnea: Status: Acute (6) Peripheral vascular disease: Status: Acute (7) Abdominal aortic aneurysm (AAA) 3.0 cm to 5.0 cm in diameter in female: Status: Acute Reason for Visit Reason for Visit: ALBA FERRARO Hospital Course Hospital Course 70-year-old female with a past medical history significant for abdominal aortic aneurysm, peripheral vascular disease, obstructive sleep apnea, type 1 Arnold- Chiari malformation, hypertension, hyperlipidemia, and coronary artery disease s/p PCI with proximal- mid RCA stent in 2019 who is now presenting to the hospital with chest pain. Patient was seen by cardiology clinic initially today where she had noted ongoing pain for over 2 hours. This was sub-sternal radiation towards abd. No respiratory complaints. Denied lightheadeness, dizziness or diaphoresis. No recent fever, chills, nausea or vomiting. Laboratory workup on arrival showed a WBC of 6.4, hemoglobin 11.1, hematocrit 35.2 and a platelet count of 279. sodium 138, potassium 3.7, chloride 103, bicarb 25, BUN 12 and creatinine 1.0. Initial Troponin T baseline was 8. EKG did not show any evidence of acute ischemia. In ER patient was given Aspirin 325 mg PO x1 and Nitro after which her chest pain had resolved. Prior cardiac work up 05/2019 Coronary angiogram which revealed 0% stenosis of the left main, LAD, 30% stenosis of the proximal circumflex to mid circumflex, and a 95% stenosis of the proximal to mid RCA which was treated with balloon angioplasty followed by stent placement and post dilation with noncompliant balloon. 03/2020 Myocardial Perfusion 1. Unremarkable myocardial perfusion imaging 2. Normal LV ejection fraction of 83%. 3. LV wall motion analysis revealing no gross wall motion normalities. 4. Normal LV volume. No significant coronary ischemia, based on the above findings 03/2020 NM Stress test No significant EKG changes with the LexiScan infusion No LexiScan induced chest pain or cardiac arrhythmia Normal blood pressure and heart rate response Unremarkable myocardial perfusion imaging Normal LV ejection fraction of 83%. LV wall motion analysis revealing no gross wall motion normalities. Normal LV volume. No significant coronary ischemia, based on the above findings Upon admission to the hospital patient for was started on Imdur and lower dose of losartan. Due to recent normal stress test case was discussed with Cardiology and repeat stress test was not recommended. Patient did not tolerate Imdur due to severe headache. Did not have any recurrence of chest discomfort. Imdur was discontinued and patient was started on Norvasc 5 mg oral daily and discharged. She was advised to follow up with Cardiology. Additionally advised return hospital if any recurrence of persistent chest pain. Also to note patient additionally been diagnosed with abdominal aortic aneurysm which she had denied the diagnosis of on admission. Ultrasound of abdominal aorta was performed which confirmed diagnosis and did not show any significant increase in size from prior ultrasounds. This was discussed with patient. He was advised to continue outpatient surveillance. Discharged in stable condition. Physical Exam Narrative: EXAM NARRATIVE: Alert, awake oriented x 3 , NAD HEENT : Grossly unremarkable CVS : NSR Chest : non-labored respiration Abd: Soft NT, ND Ext : No edema Discharge Data Data Completed and Pending: Completed Studies During Hospitalization Category Date Time Status XR chest 1V aishwarya ble [id number] Stat Exams 11/08/20 14:32 Completed CV duplex aorta 9 [id number] Routine Ultrasound 11/09/20 07:00 Completed Labs from last 24 hours 11/09/20 11/09/20 11/09/20 09:25 03:00 03:00 WBC RBC Hgb Hct MCV MCH MCHC RDW Plt Count MPV Neut % (Auto) Lymph % (Auto) [place] % (Auto) Eos % (Auto) Baso % (Auto) Neut # (Auto) Lymph # (Auto) [place] # (Auto) Eos # (Auto) Baso # (Auto) Nucleated RBC % (a uto) Nucleated RBCs # PT INR Sodium 142 Potassium 3.6 Chloride 110 H Carbon Dioxide 24 Anion Gap 11.6 BUN 13 Creatinine 1.0 H GFR Calculation Not Reportable Glucose 101 Calculated Osmolal ity 294 Calcium 9.5 Magnesium 1.9 Total Bilirubin 0.5 AST 19 ALT 14 Alkaline Phosphata se 103 Troponin T Gen 5 n g/L 11 H Troponin T Baselin e Troponin T 120 Min [place] Troponin T Troponin T Hi Sens 6Hr Troponin T Hi Sens 6Hr Delta Total Protein 5.3 L Albumin 3.2 L Globulin 2.1 Triglycerides 180 H Cholesterol 184 LDL Cholesterol, C alc 121 HDL Cholesterol 27 L LDL/HDL Ratio 4.48 H Cholesterol/HDL Ra daron 6.81 H Lipase 11/08/20 11/08/20 11/08/20 21:51 18:15 16:35 WBC RBC Hgb Hct MCV MCH MCHC RDW Plt Count MPV Neut % (Auto) Lymph % (Auto) [place] % (Auto) Eos % (Auto) Baso % (Auto) Neut # (Auto) Lymph # (Auto) [place] # (Auto) Eos # (Auto) Baso # (Auto) Nucleated RBC % (a uto) Nucleated RBCs # PT INR Sodium Potassium Chloride Carbon Dioxide Anion Gap BUN Creatinine GFR Calculation Glucose Calculated Osmolal ity Calcium Magnesium Total Bilirubin AST ALT Alkaline Phosphata se Troponin T Gen 5 n g/L Troponin T Baselin e Troponin T 120 Min [place] 8.00 Delta Troponin T 0 Troponin T Hi Sens 6Hr 8.86 Troponin T Hi Sens 6Hr Delta 0.86 Total Protein Albumin Globulin Triglycerides Cholesterol LDL Cholesterol, C alc HDL Cholesterol LDL/HDL Ratio Cholesterol/HDL Ra daron Lipase 43 11/08/20 11/08/20 11/08/20 15:45 15:45 15:45 WBC RBC Hgb Hct MCV MCH MCHC RDW Plt Count MPV Neut % (Auto) Lymph % (Auto) [place] % (Auto) Eos % (Auto) Baso % (Auto) Neut # (Auto) Lymph # (Auto) [place] # (Auto) Eos # (Auto) Baso # (Auto) Nucleated RBC % (a uto) Nucleated RBCs # PT 13.70 INR 1.01 Sodium 138 Potassium 3.7 Chloride 103 Carbon Dioxide 25 Anion Gap 13.7 BUN 12 Creatinine 1.0 H GFR Calculation Not Reportable Glucose 90 Calculated Osmolal ity 285 Calcium 9.9 Magnesium Total Bilirubin 0.5 AST 21 ALT 17 Alkaline Phosphata se 125 H Troponin T Gen 5 n g/L Troponin T Baselin e 8 Troponin T 120 Min [place] Troponin T Troponin T Hi Sens 6Hr Troponin T Hi Sens 6Hr Delta Total Protein 5.9 L Albumin 3.9 Globulin 2.0 Triglycerides Cholesterol LDL Cholesterol, C alc HDL Cholesterol LDL/HDL Ratio Cholesterol/HDL Ra daron Lipase 11/08/20 15:45 WBC 6.4 RBC 4.42 Hgb 11.1 L Hct 35.2 L MCV 79.6 L MCH 25.1 L MCHC 31.5 RDW 15.5 H Plt Count 279 MPV 11.0 H Neut % (Auto) 71.8 Lymph % (Auto) 17.1 Woodruff % (Auto) 8.8 Eos % (Auto) 1.4 Baso % (Auto) 0.6 Neut # (Auto) 4.56 Lymph # (Auto) 1.1 [place]ruff # (Auto) 0.6 Eos # (Auto) 0.1 Baso # (Auto) 0.0 Nucleated RBC % (a uto) 0 Nucleated RBCs # 0.0 PT INR Sodium Potassium Chloride Carbon Dioxide Anion Gap BUN Creatinine GFR Calculation Glucose Calculated Osmolal ity Calcium Magnesium Total Bilirubin AST ALT Alkaline Phosphata se Troponin T Gen 5 n g/L Troponin T Baselin e Troponin T 120 Min [place] Troponin T Troponin T Hi Sens 6Hr Troponin T Hi Sens 6Hr Delta Total Protein Albumin Globulin Triglycerides Cholesterol LDL Cholesterol, C alc HDL Cholesterol LDL/HDL Ratio Cholesterol/HDL Ra daron Lipase Vitals: Last Vital Signs Temp 98.6 F 11/09/20 15:09 Pulse 75 11/09/20 15:09 Resp 18 11/09/20 15:09 BP 176/73 11/09/20 15:09 Pulse Ox 95 11/09/20 15:09 Discharge Plan Discharge Patient Disposition: Home Condition: Stable Prescriptions: New carvedilol 25 mg Tablet 25 mg PO BID Qty: 60 RF: 0 amlodipine 5 mg Tablet 5 mg PO DAILY Qty: 30 RF: 0 valsartan 80 mg tablet 80 mg PO DAILY Qty: 30 RF: 0 Continued nitroglycerin 0.4 mg tablet, sublingual 0.4 mg SUBLINGUAL Q5M PRN (Reason: Chest Pain) RF: 0 escitalopram oxalate 10 mg tablet 10 mg PO DAILY RF: 0 pantoprazole 40 mg tablet,delayed release (DR/EC) 40 mg PO DAILY Qty: 30 RF: 3 cholecalciferol (vitamin D3) 50 mcg (2,000 unit) capsule 50 mcg PO DAILY Qty: 30 RF: 3 atorvastatin 40 mg tablet 40 mg PO DAILY RF: 0 indapamide 1.25 mg tablet 2.5 mg PO DAILY Qty: 180 RF: 3 Changed prednisone 2.5 mg tablet 2.5 mg PO DAILY Qty: 90 RF: 1 Discontinued valsartan 160 mg tablet 160 mg PO DAILY Qty: 90 RF: 2 simvastatin 20 mg tablet 20 mg PO DAILY RF: 0 carvedilol 12.5 mg tablet 18.75 mg PO BID RF: 0 losartan 50 mg Tablet 50 mg PO BID RF: 0 naproxen [Naprosyn] 500 mg tablet 500 mg PO BID PRN (Reason: pain) Qty: 20 RF: 0 Discharge Orders: Discharge Order (Routine); Ordered 11/09/20 Ordered By: Yuan Slade Referrals: Silvia Peng MD [Primary Care Provider] - 4-7 days (You have a hospital follow up at [facility] with Dr. Peng on November 14 at 1:45pm) Nikki Doe MD [Physician] - 2 weeks (You have a cardiology followup with Dr. Doe at [facility] on November 29 at 2:30pm) Discharge Diet: Cardiac Discharge Activity: Resume usual activity Patient Instructions: Amlodipine (By mouth), Valsartan (By mouth), Hypertension, Chest Pain (DC), Chest Pain Stoplight Discharge Attestations Time Spent in Discharge Care*: greater than 30 min Specific Discharge Activities: educating patient, discussing with child welfare caseworker/social workers/dc planners, documenting/other paperwork and evaluating patient/reviewing data Status at Discharge: Cognitive status at discharge: cognitively intact , Behavioral status at discharge: cooperative , Functional status at discharge: independent ambulation Overall status at discharge: patient is back to baseline Quality Metrics Clinical Quality Measures During this hospital stay, did patient experience: None Coding Level of Care Code Acute Hull Drafter for Chg Fwd Diagnoses Chest pain R07.9 Hypertension, essential I10 Coronary artery disease I25.10 Associated angina: without angina Coronary Disease-Associated Artery/Lesion type: [place] artery [place] vs. transplanted heart: [place] heart Hyperlipidemia E78.5 Obstructive sleep apnea G47.33 Peripheral vascular disease I73.9 Abdominal aortic aneurysm (AAA) 3.0 cm to 5.0 cm in diameter in female I71.4
--- NOTE | 2020-11-09 16:10 | PC.NURSE ---
discharge instructions given and explained.pt verb understanding of instructions.discharged via w/c to exit.spouse to drive pt home
--- NOTE | 2020-11-09 16:12 | PC.NURSE ---
no cp this shift.pt did c/o headache.states it started after given first dose of imdur last night.tylenol given.morning dose held and dr li notified.he dc'd imdur.
== END 2020-11-09 16:00 | disposition home or self-care (01) ==
LOC: ER 16:09 → CSU 18:05
PROVIDERS: Admitting Provider Hospitalist; Emergency Provider Emergency Medicine; PCP Family Medicine; Visit Provider Hospitalist
DX: R07.9 Chest pain, unspecified (principal); I10 Essential (primary) hypertension; I25.10 Atherosclerotic heart disease of native coronary artery without angina pectoris; R78.5 Finding of other psychotropic drug in blood; G47.33 Obstructive sleep apnea (adult) (pediatric); I73.9 Peripheral vascular disease, unspecified; I71.4 Abdominal aortic aneurysm, without rupture; Z79.52 Long term (current) use of systemic steroids; E78.5 Hyperlipidemia, unspecified; Z87.891 Personal history of nicotine dependence
CPT/HCPCS: 12345; 36415; 71045; 80048; 80053; 80061; 83690; 83735; 84484; 85025; 85610; 93005; 93978; 96360; 96361; 96372; 96374; 96375; 99282; 99285; G0378; J0360; J1650; J7030; J7512

== ENCOUNTER 2020-12-19 17:02 | Emergency (ER) | payer MEDICARE, OTHER, SELFPAY ==
[2020-12-19 17:06] VITALS: BP 145/74; PULSE 79; RESP 16; TEMP 36.7; O2SAT 93; BMI 26.6
[2020-12-19 17:10] VITALS: BP 145/74; PULSE 70; RESP 24; O2SAT 95
--- NOTE | 2020-12-19 17:21 | XR_ITS ---
WS: [id number] Portable AP upright chest, 12/19/2020 Clinical Data: chest pain Comparison: Portable chest, 11/08/2020. Findings: No nodules, masses or effusions are seen. The heart is normal. The pulmonary vascularity is not increased. No pneumonia or pneumothorax is seen. The aortic arch and descending aorta show calci fication and tortuosity. There is an anterior cervical disc fusion. Monitor leads are on the chest wa ll. XR/XR chest 1V portable [id number] Impression: Atherosclerosis.
--- NOTE | 2020-12-19 17:21 | ECG_ITS ---
[facility] Test Date: 2020-12-19 Pat Name: Rosie Martinez Department: Room: Gender: Female Associate Curator: : 1950 Requested By: David Painter Order Number: [id number] Carlos MD: Nikki Doe M.D. Measurements Intervals [place] Rate: 66 P: 73 HI: 158 QRS: 19 QRSD: 82 T: 52 QT: 411 QTc: 431 Interpretive Statements SINUS RHYTHM Compared to ECG 11/08/2020 17:16:15 No significant changes Electronically Signed On 12-19-2020 19:56:54 NAPHTHOL SOAPING MACHINE OPERATOR by Nikki Doe M.D. [email or web address]
--- NOTE | 2020-12-19 17:22 | W.ED.CHESTPA ---
HPI - Chest Pain General: Chief Complaint: Chest Pain Stated Complaint: CHEST PAIN Time Seen by Provider: 12/19/20 17:21 Source: patient Mode of arrival: ambulatory Limitations: no limitations History of Present Illness: HPI narrative: 70-year-old female comes in today with complaints of midsternal chest discomfort. Patient reports that she was sitting watching TV this afternoon and had some onset of chest sudden chest discomfort. Patient appears well. Patient appears in no acute distress. Patient has a history of coronary artery disease with stent placement about 2 to 3 years ago. Other medical problems include peripheral vascular disease, obstructive sleep apnea, hypertension, hyperlipidemia, a abdominal aortic aneurysm, aneurysm of the right common iliac artery, osteoarthritis, and rheumatoid arthritis. Patient does use prednisone routinely. MD complaint: chest pain Review of Systems General: Reports: 10 or more systems reviewed and unremarkable except in HPI and below Card: Reports: chest pain [facility] ED PFSH: Medical History (Updated 12/19/20 @ 19:[address] [facility]) Abdominal aortic aneurysm (AAA) 3.0 cm to 5.0 cm in diameter in female 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 Hazel, 2014 S/P cataract extraction and insertion of intraocular lens bilateral S/P cervical spinal fusion ACDFF Dr. Dawn 12/07/2015 S/P right coronary artery (RCA) stent placement (~05/2019) Family History Other Cancer Rheumatoid arthritis Denies family history of Chronic kidney disease (CKD) Systemic lupus erythematosus (SLE) in adult Lung disease Hypertension Social History Smoking and tobacco status: former smoker Alcohol intake: current Alcohol intake frequency: holidays/special occasions only History of recent travel: No (12/10/19) Physical Exam Const: COMMON NORMALS: no acute distress and patient oriented x3 GENERAL APPEARANCE: cooperative HENMT: COMMON NORMALS: normocephalic and Normal external nose present HEAD & SCALP: normal to inspection and normocephalic NOSE: Normal external nose present MOUTH: Normal oral and palatal mucosa present THROAT: posterior oropharynx normal Eye: GENERAL EYE: appearance normal, both eyes and all related structures Neck/C-Spine: COMMON NORMALS: full ROM Lymph: LYMPHATIC: no lymphadenopathy noted Chest: COMMONS NORMALS: normal inspection of the chest Resp: COMMON NORMALS: normal respiratory effort EFFORT & INSPECTION: Yes able to speak in complete sentences Cardio: COMMON NORMALS: regular rate and regular rhythm RATE: regular rate RHYTHM: regular rhythm GI: AUSCULTATION: Yes normoactive bowel sounds PALPATION: Yes Tenderness to palpation present (GI) (Mid epigastric abdominal tenderness on palpation.) : COMMON NORMALS: Yes no CVA tenderness BLADDER/KIDNEY EXAM: Yes no CVA tenderness Back/Pelvis: COMMON NORMALS: no CVA tenderness and thoracic and lumbar spine normal to inspection Extremity: COMMON NORMALS: normal to inspection Neuro: COMMON NORMALS: patient oriented x3 and moves all extremities Psych: COMMON NORMALS: mental status grossly normal and cooperative Skin: COMMON NORMALS: no rashes or lesions noted GENERAL SKIN EXAM: no rashes or lesions noted Course ED course: 1729, patient has history of AAA ranging 3 to 5 cm, concern for possible dissection causing midsternal chest and midepigastric abdominal pain. Patient is resting well at this time. Will order CTA of the chest and abdomen to rule out dissection. Vital Signs: Vital signs: Vital Signs Temperature 98.1 F 12/19/20 17:06 Pulse Rate 96 12/19/20 18:37 Respiratory Rate 24 H 12/19/20 18:37 Blood Pressure 133/74 12/19/20 18:37 Pulse Oximetry 92 12/19/20 18:37 MDM - Chest Pain MDM Narrative: Medical decision making narrative: Patient comes in today with complaints of midsternal chest discomfort. Patient has increased pain with palpation the midepigastric region. Bowel sounds are present. Skin is warm and dry. Patient does have a history of aortic aneurysm. Vital signs are unremarkable except for some elevation in blood pressure. Differential diagnosis includes but not limited to ACS, dissection of the aortic aneurysm, PE, GERD. Laboratory values noted some mild anemia with a hemoglobin of 10.5, mild elevation of creatinine 1.0, troponin was negative. EKG was normal sinus rhythm. Chest x-ray was normal. CTA of the chest and abdomen noted aortic aneurysm without dissection, did note some significant renal artery stenosis. Reviewed exam with patient with recommendations for treatment and follow-up. Patient reported understanding of care plan recommended prompt follow-up with office nurse Dr. Hooker for further evaluation and treatment. Patient reported understanding agreed to plan. Lab Data: Labs: Lab Results 12/19/20 12/19/20 12/19/20 Range/Units 17:30 17:30 17:30 WBC 6.5 (4.0-10.0) 10^3/ uL RBC 4.35 (4.1-5.3) 10^6/u L Hgb 10.5 L (11.5-15.3) g/dL Hct 34.4 L (37.0-47.0) % MCV 79.1 L (81-99) fL MCH 24.1 L (28.0-34.0) pg MCHC 30.5 (30.0-36.0) g/dL RDW 14.8 (12.1-15.1) % Plt Count 297 (130-400) 10^3/c mm MPV 11.0 H (7.4-10.4) fL Neut % (Auto) 67.9 % Lymph % (Auto) 17.8 % Major % (Auto) 11.5 % Eos % (Auto) 1.8 % Baso % (Auto) 0.8 % Neut # (Auto) 4.41 (1.8-7.7) 10^3/u L Lymph # (Auto) 1.2 (0.8-4.8) 10^3/u L Major # (Auto) 0.8 (0.2-0.9) 10^3/u L Eos # (Auto) 0.1 (0.0-0.8) 10^3/u L Baso # (Auto) 0.1 (0.0-0.1) 10^3/u L Nucleated RBC % (a uto) 0 % Nucleated RBCs # 0.0 /100WBC PT 13.90 (12.1-14.9) SECO NDS INR 1.03 (0.8-1.2) APTT 25.5 (23.9-36.7) SECO NDS Sodium 140 (136-145) mmol/L Potassium 4.1 (3.5-5.1) mmol/L Chloride 105 (98-107) mmol/L Carbon Dioxide 25 (22-29) mmol/L Anion Gap 14.1 (5-19) BUN 15 (8-23) mg/dL Creatinine 1.0 H (0.5-0.9) mg/dL GFR Calculation Not Reportable Glucose 117 H (65-115) mg/dL Calculated Osmolal ity 292 (285-295) mOsm/k g Calcium 9.7 (8.5-10.5) mg/dL Total Bilirubin 0.6 (0.15-1.2) mg/dL AST 18 (0-32) U/L ALT 14 (0-33) U/L Alkaline Phosphata se 137 H (35-105) IU/L Troponin T Baselin e (0-10) ng/L Total Protein 5.3 L (6.6-8.7) g/dL Albumin 3.5 (3.5-5.2) g/dL Globulin 1.8 (1.3-4.6) g/dL Lipase 44 (13-60) U/L 12/19/20 Range/Units 17:30 WBC (4.0-10.0) 10^3/ uL RBC (4.1-5.3) 10^6/u L Hgb (11.5-15.3) g/dL Hct (37.0-47.0) % MCV (81-99) fL MCH (28.0-34.0) pg MCHC (30.0-36.0) g/dL RDW (12.1-15.1) % Plt Count (130-400) 10^3/c mm MPV (7.4-10.4) fL Neut % (Auto) % Lymph % (Auto) % Major % (Auto) % Eos % (Auto) % Baso % (Auto) % Neut # (Auto) (1.8-7.7) 10^3/u L Lymph # (Auto) (0.8-4.8) 10^3/u L Major # (Auto) (0.2-0.9) 10^3/u L Eos # (Auto) (0.0-0.8) 10^3/u L Baso # (Auto) (0.0-0.1) 10^3/u L Nucleated RBC % (a uto) % Nucleated RBCs # /100WBC PT (12.1-14.9) SECO NDS INR (0.8-1.2) APTT (23.9-36.7) SECO NDS Sodium (136-145) mmol/L Potassium (3.5-5.1) mmol/L Chloride (98-107) mmol/L Carbon Dioxide (22-29) mmol/L Anion Gap (5-19) BUN (8-23) mg/dL Creatinine (0.5-0.9) mg/dL GFR Calculation Glucose (65-115) mg/dL Calculated Osmolal ity (285-295) mOsm/k g Calcium (8.5-10.5) mg/dL Total Bilirubin (0.15-1.2) mg/dL AST (0-32) U/L ALT (0-33) U/L Alkaline Phosphata se (35-105) IU/L Troponin T Baselin e 8 (0-10) ng/L Total Protein (6.6-8.7) g/dL Albumin (3.5-5.2) g/dL Globulin (1.3-4.6) g/dL Lipase (13-60) U/L Discharge Plan Discharge Patient Disposition: Home Clinical Impression: Atypical chest pain, Atherosclerotic renal artery stenosis Abdominal aortic aneurysm Qualifiers: Presence of rupture: without rupture Qualified Code(s): I71.4 - Abdominal aortic aneurysm, without rupture Condition: Stable Prescriptions: No Action nitroglycerin 0.4 mg tablet, sublingual 0.4 mg SUBLINGUAL Q5M PRN (Reason: Chest Pain) RF: 0 escitalopram oxalate 10 mg tablet 10 mg PO DAILY RF: 0 pantoprazole 40 mg tablet,delayed release (DR/EC) 40 mg PO DAILY Qty: 30 RF: 3 cholecalciferol (vitamin D3) 50 mcg (2,000 unit) capsule 50 mcg PO DAILY Qty: 30 RF: 3 atorvastatin 40 mg tablet 40 mg PO DAILY RF: 0 indapamide 1.25 mg tablet 2.5 mg PO DAILY Qty: 180 RF: 3 carvedilol 25 mg Tablet 25 mg PO BID Qty: 60 RF: 0 amlodipine 5 mg Tablet 5 mg PO DAILY Qty: 30 RF: 0 valsartan 80 mg tablet 80 mg PO DAILY Qty: 30 RF: 0 prednisone 2.5 mg tablet 2.5 mg PO DAILY Qty: 90 RF: 1 Discharge Orders: Discharge ED (Routine); Ordered 12/19/20 Ordered By: David Hood Referrals: Sivlia Peng MD [Primary Care Provider] - Discharge Diet: Usual diet Discharge Activity: Increase activity as tolerated Patient Instructions: Chest Pain (ED) Activity Restrictions/Additional Instructions: Light diet. Drink plenty of fluids with medication. Follow-up with office nurse for further treatment and evaluation. Case management was requested to assist with that follow-up appointment at the soonest possible. Return to the emergency department for worsening symptoms or new concerns. Coding Level of Care Code ED Communications Writer for Loulou Borrero Exam Comprehensive
--- NOTE | 2020-12-19 17:32 | CTR_ITS ---
PROCEDURE INFORMATION: Exam: CT Angiography Chest With Contrast Exam date and time: 12/19/2020 6:00 PM Age: 70 years old Clinical indication: Abdominal pain; Chest pain; Prior surgery; Surgery type: Back, hyst, appy, stent; Additional info: Aaa, mid chest pain TECHNIQUE: Imaging protocol: Computed tomographic angiography of the chest with intravenous contrast. 3D rendering (Not supervised by radiologist): MIP and/or 3D reconstructed images were created by the technologist. Total images: 737 Radiation optimization: All CT scans at this facility use at least one of these dose optimization techniques: automated exposure control; mA and/or kV adjustment per patient size (includes targeted exams where dose is matched to clinical indication); or iterative reconstruction. Contrast material: VISI 320; Contrast volume: 95 ml; Contrast route: INTRAVENOUS (IV); COMPARISON: CTA Chest-Pulmonary Emb [id number] 10/21/2015 11:11 PM RADIATION DOSE METRICS: Total DLP (mGy-cm): 3133.24 FINDINGS: Pulmonary arteries: No visible evidence of pulmonary embolism/pulmonary arterial thrombus. Aorta: The thoracic aorta is nonaneurysmal. No visible intimal flap or dissection. Advanced arterial sclerotic disease. Tortuous thoracic aorta which can be seen in hypertensive cardiovascular disease. Thyroid: Stable left thyroid goiter with colloid cysts since 2014. No follow-up recommended. Lungs: No visible active interstitial or alveolar airspace disease. Evidence of mild COPD/chronic bronchitis. Pleural space: Unremarkable. No pneumothorax. No pleural effusion. Heart: Moderate coronary artery disease. Mild cardiomegaly. No visible pericardial effusion. Lymph nodes: No visible active mediastinal or hilar lymphadenopathy. Bones/joints: No visible active or acute osseous pathology. Previous cervical fusion. Degenerative disease of the spine. Osteopenia/osteoporosis. Mild scoliotic curvature. Soft tissues: Unremarkable. IMPRESSION: 1. No visible evidence of pulmonary embolism/pulmonary arterial thrombus. 2. Other nonurgent, nonemergent, chronic, and age related findings as detailed in text above. COMMENTS: Consistent with the [employer]'s Incidental Findings Committee white paper (J Am Missy Radiol 2015): In patients aged 35 years and older with an incidental thyroid nodule equal to or greater than 1.[address], MRI or extrathyroidal US, further evaluation with dedicated thyroid US is recommended for patients with normal life expectancy and without comorbidities. For smaller nodules without suspicious features, no further evaluation or follow up is recommended. PROCEDURE INFORMATION: Exam: CT Abdomen And Pelvis With Contrast Exam date and time: 12/19/2020 6:00 PM Age: 70 years old Clinical indication: Abdominal pain; Chest pain; Prior surgery; Surgery type: Back, hyst, appy, stent; Additional info: Aaa, mid chest pain TECHNIQUE: Imaging protocol: Computed tomography of the abdomen and pelvis with intravenous contrast. Radiation optimization: All CT scans at this facility use at least one of these dose optimization techniques: automated exposure control; mA and/or kV adjustment per patient size (includes targeted exams where dose is matched to clinical indication); or iterative reconstruction. Contrast material: VISI 320; Contrast volume: 95 ml; Contrast route: INTRAVENOUS (IV); COMPARISON: 1. CTA Chest-Pulmonary Emb [id number] 10/21/2015 11:[address] abdomen pelvis w con* [id number] 03/15/2017 6:17:45 PM RADIATION DOSE METRICS: Total DLP (mGy-cm): 3133.24 FINDINGS: Liver: Diffuse fatty infiltration of the liver. No visible hepatic mass or cystic structure. Gallbladder and bile ducts: Unremarkable. No calcified stones. No ductal dilation. Pancreas: Unremarkable. No ductal dilation. Spleen: Normal. No splenomegaly. Adrenal glands: Normal. No mass. 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 Hemodynamically significant stenosis ostium of the right renal artery of 60% or greater with poststenotic dilatation but without occlusion. Atrophic left kidney with a stable simple renal cortical cyst off the inferior pole that measures 19 mm. Compensatory hypertrophy of the right kidney. No hydronephrosis or perinephric fluid. No visible nephrolithiasis or ureterolithiasis. Stomach and bowel: Diverticulosis coli, primarily the sigmoid colon, without visible evidence for acute diverticulitis. Nonobstructive bowel pattern. No visible significant adynamic or reactive ileus. Appendix: Status post appendectomy. Intraperitoneal space: No visible evidence of mesenteric lymphadenitis or active mesenteritis/panniculitis. No visible intraperitoneal ascites. No visible pneumoperitoneum. Vasculature: Again note of a infrarenal fusiform abdominal aortic aneurysm with greatest AP diameter 34 mm in transverse diameter 37 mm essentially stable since 03/15/2017. No visible intimal flap or dissection. Again note of short segment fusiform aneurysmal dilatation of the right common iliac artery maximum AP diameter 21 mm and stable. Again no intimal flap or dissection. No occlusion. Left common iliac artery without significant fusiform aneurysmal dilatation. Advanced arterial sclerotic disease. Approximately 60% stenosis at the ostium of the celiac artery with poststenotic dilatation. No occlusion. Approximately 40% stenosis ostium of the superior mesenteric artery with mild poststenotic dilatation. No occlusion. Inferior mesenteric artery patent. Lymph nodes: No current visible evidence of active mesenteric or retroperitoneal lymphadenopathy. Urinary bladder: Urinary bladder unremarkable. No visible filling defect. Reproductive: Status post hysterectomy. Bones/joints: No visible acute osseous abnormality. Inter pedicle screw and side bar fixation L3 and L4 with intervertebral disc prosthesis. Degenerative disease. Soft tissues: Unremarkable. CT/CT angio chest w abd pel w con IMPRESSION: 1. Stable infrarenal fusiform abdominal aortic aneurysm since last evaluation of 03/15/2017 as detailed in text above. 2. Complete occlusion left renal artery with atrophy of the left kidney. 3. Hemodynamically significant stenosis ostium of the right renal artery of 60% or greater with poststenotic dilatation but without occlusion. 4. Short segment fusiform aneurysmal dilatation right common iliac artery stable since last evaluation. 5. Approximately 60% stenosis at the ostium of the celiac artery with poststenotic dilatation stable. 6. Diverticulosis coli, primarily the sigmoid colon, without evidence for acute diverticulitis. 7. Other nonurgent, nonemergent, chronic, postoperative, and age related findings as detailed in text above. Radiation Dose CTDIVOL = (mGy): DLP = 3133.24~3133.24 (mGy-cm)
[2020-12-19 17:37] VITALS: BP 145/74; PULSE 76; RESP 20; O2SAT 96
[2020-12-19 17:53] LABS: Basophils # 0.1 10^3/uL (0.0-0.1); Basophils % 0.8 %; Eosinophils # 0.1 10^3/uL (0.0-0.8); Eosinophils % 1.8 %; Hematocrit 34.4 % (37.0-47.0); Hemoglobin 10.5 g/dL (11.5-15.3); Lymphocytes # 1.2 10^3/uL (0.8-4.8); Lymphocytes % 17.8 %; Mean Corpuscular HGB Conc 30.5 g/dL (30.0-36.0); Mean Corpuscular Hemoglobin 24.1 pg (28.0-34.0); Mean Corpuscular Volume 79.1 fL (81-99); Monocytes # 0.8 10^3/uL (0.2-0.9); Monocytes % 11.5 %; Neutrophils # 4.41 10^3/uL (1.8-7.7); Neutrophils % 67.9 %; Nucleated Red Blood Cells % 0 %; Platelet Count 297 10^3/cmm (130-400); Red Blood Count 4.35 10^6/uL (4.1-5.3); Red Cell Distribution Width 14.8 % (12.1-15.1); White Blood Count 6.5 10^3/uL (4.0-10.0)
[2020-12-19 18:06] LABS: INR 1.03 (0.8-1.2); Partial Thromboplastin Time 25.5 SECONDS (23.9-36.7)
[2020-12-19 18:20] LABS: Alanine Aminotransferase 14 U/L (0-33); Albumin Level 3.5 g/dL (3.5-5.2); Alkaline Phosphatase 137 IU/L (35-105); Aspartate Amino Transferase 18 U/L (0-32); Blood Urea Nitrogen 15 mg/dL (8-23); Calcium 9.7 mg/dL (8.5-10.5); Carbon Dioxide 25 mmol/L (22-29); Chloride 105 mmol/L (98-107); Globulin 1.8 g/dL (1.3-4.6); Glucose 117 mg/dL (65-115); Lipase 44 U/L (13-60); Osmolality Calculated 292 mOsm/kg (285-295); Sodium 140 mmol/L (136-145); Total Bilirubin 0.6 mg/dL (0.15-1.2); Total Protein 5.3 g/dL (6.6-8.7)
[2020-12-19 18:23] LABS: Troponin(5th) Baseline 8 ng/L (0-10)
[2020-12-19] MEDS: iodixanol 320 mg/mL 100mL Btl IV (18:23)
[2020-12-19 18:37] VITALS: BP 133/74; PULSE 96; RESP 24; O2SAT 92
[2020-12-19 18:37] LABS: Anion Gap 14.1 (5-19); Potassium 4.1 mmol/L (3.5-5.1)
[2020-12-19 19:25] VITALS: BP 185/68; PULSE 63; RESP 22; O2SAT 94
--- NOTE | 2020-12-20 09:24 | DCPLANNER ---
office services manager had message to schedule a follow up appointment for patient with [facility]. office services manager called [facility], spoke with Sandie. A follow up appointment was scheduled for Friday, January 10, 2021 at 4:[address] Castellon. Patient is aware of the appointment.
--- NOTE | 2021-02-06 12:37 | DCPLANNER ---
Patient had a follow up appointment scheduled for 01.10.[address] Castellon at [facility] - patient did attend appointment.
== END 2020-12-19 19:25 | disposition home or self-care (01) ==
PROVIDERS: Emergency Provider Nurse Practitioner Family; PCP Family Medicine
DX: I71.4 Abdominal aortic aneurysm, without rupture (principal); R07.89 Other chest pain; I70.1 Atherosclerosis of renal artery; I25.10 Atherosclerotic heart disease of native coronary artery without angina pectoris; E78.5 Hyperlipidemia, unspecified; I10 Essential (primary) hypertension; Z87.891 Personal history of nicotine dependence
CPT/HCPCS: 12345; 71045; 71275; 74177; 80053; 83690; 84484; 85025; 85610; 85730; 93005; 99283; 99284; Q9967

== ENCOUNTER 2021-01-01 13:04 | Outpatient (CLI) | payer MEDICARE, OTHER, SELFPAY ==
--- NOTE | 2021-01-01 13:30 | USCV_ITS ---
Rosie Martinez Age: 70 Gender: F : 1950 Exam Date: 01/01/2021 13:17 Ordering Phys: Tamera Castellon MD ([email or web address]) Technologist: Jessica Villagran [place] [facility] [place]ication: OCCLUSION AND STENISOS OF BILATERAL CAROTID ARTERIES Risk Factors: Unknown Previous Vascular Surgery: None Right Brachial BP: / Left Brachial BP: / Right Left Velocity (cm/s) Spectral Plaque Velocity (cm/s) Spectral Plaque Syst/Diast Broadening Syst/Diast Broadening 73.30/ 7.40 Prox CCA 106.50/ 22.30 46.70/ 16.70 Mid CCA 94.70 / 19.70 50.20/ 10.40 Distal CCA 85.40 / 22.30 47.50/ 6.00 Prox ICA 68.40 / 18.40 Hetro 43.70/ 8.20 Mid ICA 82.80 / 22.30 Hetro 36.80/ 9.90 Distal ICA 90.70 / 23.70 66.60 ECA 122.30 1.02 ICA/CCA 0.96 Antegrade Vertebral Antegrade 45.40/ 8.50 cm/s 90.70/ 17.10 cm/s Tri Subclavian Bi 127.5 94.70 0 FINDINGS Minimal to moderate plaques at the bifurcations and proximal internal carotid arteries bilaterally Intimal thickening and minimal scattered plaques in the common carotid arteries bilaterally Antegrade flow in the vertebral arteries bilaterally Normal Doppler velocities in the subclavian arteries bilaterally CONCLUSIONS Minimal to moderate plaques at the bifurcations and proximal internal carotid arteries bilaterally with the Doppler characteristics suggesting less than 50% stenosis . Intimal thickening and minimal scattered plaques in the common carotid arteries bilaterally No similar previous studies are available for comparison Dr Karime Solano MD [facility] (Electronically Signed) Final Date: 02 January 2021 20:26 S
== END 2021-01-01 13:05 | disposition home or self-care (01) ==
LOC: US 13:05
PROVIDERS: PCP Family Medicine; Visit Provider Internal Medicine Cardiovascular Disease
DX: I65.23 Occlusion and stenosis of bilateral carotid arteries (principal)
CPT/HCPCS: 93880

== ENCOUNTER 2021-01-22 13:53 | Emergency (ER) | payer MEDICARE, OTHER, SELFPAY ==
[2021-01-22 14:37] VITALS: BP 188/115; PULSE 79; RESP 14; TEMP 36.7; O2SAT 95; BMI 23.3
--- NOTE | 2021-01-22 15:00 | XR_ITS ---
WS: [id number] Exam: XR foot LT min 3V* [id number] Date/Time of Exam: 01/22/2021 3:12 PM Reason For Exam: pain No acute fracture or dislocation. Moderate degenerative change at the first MP joint in the midfoot j oints. Hypertrophic bone formation identified along the dorsum of the foot probably in the region of the first cuneiform. No soft tissue foreign bodies. XR/XR foot LT min 3V* [id number] IMPRESSION: 1. No fracture or dislocation. 2. Degenerative changes as above.
== END 2021-01-22 16:04 | disposition left against medical advice (07) ==
PROVIDERS: PCP Family Medicine
DX: Z53.21 Procedure and treatment not carried out due to patient leaving prior to being seen by health care provider (principal)
CPT/HCPCS: 73630

== ENCOUNTER 2021-01-30 18:07 | Emergency (ER) | payer MEDICARE, OTHER, SELFPAY ==
[2021-01-30 18:14] VITALS: BP 207/113; PULSE 96; RESP 18; TEMP 36.6; O2SAT 95; BMI 31.6
--- NOTE | 2021-01-30 18:49 | XR_ITS ---
WS: [id number] Left foot, 3 views, 01/31/2021 Clinical Data: 5th toe discoloration Comparison: Left foot, 01/22/2021. Findings: No fractures or dislocations are seen. No bone destruction or erosion is noted. The soft tissues are normal. Osteoarthritis of the left first MTP joint is present. There is osteoarthritis between the base of th e left first metatarsal and the first cuneiform. XR/XR foot LT min 3V* [id number] Impression: 1. Negative for left fifth toe fracture. 2. Osteoarthritis of the left first MP joint and base of the left first metatar chencho.
--- NOTE | 2021-01-30 19:31 | W.ED.EXTPRO ---
HPI - Extremity Problem General: Chief complaint: Extremity Problem,Nontraumatic Stated complaint: L FOOT, 5TH TOE INJURY Time Seen by Provider: 01/30/21 19:14 Source: patient Mode of arrival: ambulatory Limitations: no limitations History of Present Illness: HPI Narrative: 70-year-old female patient presents to the emergency department with discoloration of the toes to the left lower extremity. She reports came to the emergency room last night, she denies trauma or injury. She is a poor historian, states came to the emergency room last night but was too crowded for her to stay. She states discoloration has now improved and is no longer present. Associated symptoms: Deny chest pain, fever(s) or rash Review of Systems General: Reports: 10 or more systems reviewed and unremarkable except in HPI and below Const: Denies: fever(s), chills or diaphoresis Eyes: Denies: blurry vision or eye redness ENMT: Denies: throat pain, dental pain or disequilibrium Card: Denies: chest pain, palpitations or irregular heart rhythm Resp: Denies: dyspnea, productive cough, non-productive cough or wheezing GI: Denies: abdominal pain, nausea or vomiting : Denies: difficulty voiding or dysuria Musc: Reports: joint pain (lt foot) and joint stiffness (lt foot); Denies: neck pain or back pain Skin/Breast: Denies: rash or pruritus Neuro: Denies: headache(s), weakness in extremities or behavioral changes Shayan/Lymph: Denies: easy bruising PFSH ED PFSH: Medical History (Updated 01/30/21 @ 19:37 by PEPE Barr) Abdominal aortic aneurysm (AAA) 3.0 cm to 5.0 cm in diameter in female 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 Hazel, 2013 S/P cataract extraction and insertion of intraocular lens bilateral S/P cervical spinal fusion ACDFF Dr. Dawn 12/07/2015 S/P right coronary artery (RCA) stent placement (~05/2019) Family History Other Cancer Rheumatoid arthritis Denies family history of Chronic kidney disease (CKD) Systemic lupus erythematosus (SLE) in adult Lung disease Hypertension Social History Smoking and tobacco status: former smoker Alcohol intake: current Alcohol intake frequency: holidays/special occasions only History of recent travel: No (12/10/19) Physical Exam Const: COMMON NORMALS: no acute distress, patient oriented x3, healthy appearing and alert GENERAL APPEARANCE: cooperative, comfortable and well hydrated HENMT: COMMON NORMALS: normocephalic, Normal external nose present and moist oral mucous membranes HEAD & SCALP: normocephalic NOSE: Normal external nose present Eye: COMMON NORMALS: Equal, round and reactive pupils present and EOMs intact bilaterally GENERAL EYE: appearance normal, both eyes and all related structures PUPIL: Yes Equal, round and reactive pupils present Neck/C-Spine: COMMON NORMALS: full ROM and no lymphadenopathy GENERAL: Yes normal visual inspection and Yes trachea midline CERVICAL SPINE: Yes cervical ROM normal Lymph: LYMPHATIC: no lymphadenopathy noted Chest: COMMONS NORMALS: normal inspection of the chest Resp: COMMON NORMALS: normal respiratory effort and clear to auscultation bilaterally AUSCULTATION: clear to auscultation bilaterally Cardio: COMMON NORMALS: regular rhythm, S1 normal heart sound present, S2 normal heart sound present and Peripheral pulses 2+ throughout RHYTHM: regular rhythm HEART SOUNDS: S1 normal heart sound present and S2 normal heart sound present PERIPHERAL PULSES: Peripheral pulses 2+ throughout GI: COMMON NORMALS: Soft to palpation and non-tender INSPECTION: Yes normal to inspection PALPATION: Yes Soft to palpation : COMMON NORMALS: Yes no CVA tenderness BLADDER/KIDNEY EXAM: Yes no CVA tenderness Back/Pelvis: COMMON NORMALS: no CVA tenderness and thoracic and lumbar spine normal to inspection Extremity: COMMON NORMALS: normal to inspection, full ROM, capillary refill normal, no clubbing, cyanosis or edema and no pedal edema NARRATIVE EXTREMITY EXAM: No discoloration to either feet, all digits of the bilateral extremities with full flexion-extension. Mild edema noted over the bilateral dorsal distal feet. Not able to produce tenderness upon exam to the bilateral feet Patient wearing black slippers, debris noted to the bottom of her feet. When she applied slippers, discoloration noted to the skin of the toes, easily wiped off with a towel. Skin discoloration due to dye. GENERAL: Yes normal exam except as noted Neuro: COMMON NORMALS: patient oriented x3 and no focal motor deficits SENSORIUM/ORIENTATION: Yes alert Psych: COMMON NORMALS: mental status grossly normal, Normal thought process present and cooperative ACTIVITY/MOTOR BEHAVIOR: Yes appropriate eye contact THOUGHT PROCESS: Normal thought process present Skin: COMMON NORMALS: no rashes or lesions noted and turgor normal GENERAL SKIN EXAM: no rashes or lesions noted and turgor normal Course Vital Signs: Vital signs: Vital Signs Temperature 97.9 F 01/30/21 18:14 Pulse Rate 96 01/30/21 18:14 Respiratory Rate 18 01/30/21 18:14 Blood Pressure 207/113 01/30/21 18:14 Pulse Oximetry 95 01/30/21 18:14 Discharge Plan Discharge Patient Disposition: Home Clinical Impression: Contact with dyes, Discoloration of skin of toe Condition: Stable Prescriptions: No Action escitalopram oxalate 10 mg tablet 10 mg PO DAILY RF: 0 pantoprazole 40 mg tablet,delayed release (DR/EC) 40 mg PO DAILY Qty: 30 RF: 3 cholecalciferol (vitamin D3) 50 mcg (2,000 unit) capsule 50 mcg PO DAILY Qty: 30 RF: 3 atorvastatin 40 mg tablet 40 mg PO DAILY RF: 0 carvedilol 25 mg tablet 37.5 mg PO BID Qty: 270 RF: 3 isosorbide mononitrate 30 mg tablet extended release 24 hr 15 mg PO BID Qty: 90 RF: 3 indapamide 1.25 mg tablet 2.5 mg PO DAILY Qty: 180 RF: 3 nitroglycerin 0.4 mg tablet, sublingual 0.4 mg SUBLINGUAL Q5M PRN (Reason: Chest Pain) Qty: 25 RF: 3 amlodipine 5 mg Tablet 5 mg PO DAILY Qty: 30 RF: 0 valsartan 80 mg tablet 80 mg PO DAILY Qty: 30 RF: 0 prednisone 2.5 mg tablet 2.5 mg PO DAILY Qty: 90 RF: 1 Discharge Orders: Discharge ED (Routine); Ordered 01/30/21 Ordered By: Padmini Herman Referrals: Silvia Peng MD [Primary Care Provider] - Discharge Diet: Usual diet Discharge Activity: Resume usual activity Patient Instructions: Opioid Safety Activity Restrictions/Additional Instructions: Monitor for other concerning symptoms, return to the emergency department as needed Encourage to wear shoes to avoid injuries such as puncture wounds from sharp objects, do not go barefoot. Coding Level of Care Code ED Net Architect for Chg Fwd Exam Comprehensive
[2021-01-30 19:41] VITALS: BP 206/116; PULSE 58; RESP 14; O2SAT 96
== END 2021-01-30 19:42 | disposition home or self-care (01) ==
PROVIDERS: Emergency Provider Nurse Practitioner Family; PCP Family Medicine
DX: L98.8 Other specified disorders of the skin and subcutaneous tissue (principal); Z77.098 Contact with and (suspected) exposure to other hazardous, chiefly nonmedicinal, chemicals; I25.10 Atherosclerotic heart disease of native coronary artery without angina pectoris; E78.5 Hyperlipidemia, unspecified; I10 Essential (primary) hypertension; G47.33 Obstructive sleep apnea (adult) (pediatric); Z87.891 Personal history of nicotine dependence
CPT/HCPCS: 73630; 99282

== ENCOUNTER 2021-02-28 14:42 | Emergency (ER) | payer MEDICARE, OTHER, SELFPAY ==
[2021-02-28 14:49] VITALS: BP 133/71; PULSE 78; RESP 18; TEMP 37.1; O2SAT 96; BMI 25.0
[2021-02-28 15:00] VITALS: BP 133/71; PULSE 78; RESP 14; O2SAT 96
--- NOTE | 2021-02-28 15:04 | W.ED.LOWEXIN ---
HPI - Extremity Injury (Lower) General: Chief Complaint: Extremity Problem,Nontraumatic Stated Complaint: POSS BROKE PINKY TOE Time Seen by Provider: 02/28/21 15:04 Source: patient Mode of arrival: ambulatory Limitations: no limitations History of Present Illness: HPI Narrative: Patient is a 70-year-old female who presents to ED today for evaluation of a left foot injury. Patient states she was walking and accidentally stubbed the lateral aspect of her right foot on the corner of her metal bed frame. Patient has been ambulatory since event. MD complaint: foot injury Onset (ago): hour(s) Injury: Right: foot Type of Injury: blunt Place: home Severity: moderate Relieving factors: immobilization Exacerbating factors: weight bearing, movement and palpation Context: direct blow Other symptoms: none Review of Systems Musc: Reports: extremity pain (R lateral foot); Denies: extremity swelling Skin/Breast: Reports: other (no lacerations/abrasions) Neuro: Denies: numbness in extremities, sensory changes or difficulty walking PFSH ED PFSH: Medical History (Updated 02/28/21 @ 15:21 by DOMINIQUE Welch) Abdominal aortic aneurysm (AAA) 3.0 cm to 5.0 cm in diameter in female 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 Hazel, 2014 S/P cataract extraction and insertion of intraocular lens bilateral S/P cervical spinal fusion ACDFF Dr. Dawn 12/07/2015 S/P right coronary artery (RCA) stent placement (~05/2019) Family History Other Cancer Rheumatoid arthritis Denies family history of Chronic kidney disease (CKD) Systemic lupus erythematosus (SLE) in adult Lung disease Hypertension Social History Smoking and tobacco status: former smoker Alcohol intake: current Alcohol intake frequency: holidays/special occasions only History of recent travel: No (12/10/19) Physical Exam Const: COMMON NORMALS: no acute distress, patient oriented x3, no limitations and alert Extremity: GENERAL: Yes normal exam except as noted OTHER: TTP 4-5 digits and 5th metacarpal; no deformity noted; no swelling/ecchymosis; no abrasions/lacerations present Neuro: COMMON NORMALS: patient oriented x3 SENSORIUM/ORIENTATION: Yes alert Skin: TRAUMA: no lacerations or abrasions Course Vital Signs: Vital signs: Vital Signs Temperature 98.7 F 02/28/21 14:49 Pulse Rate 78 02/28/21 15:00 Respiratory Rate 14 02/28/21 15:00 Blood Pressure 133/71 02/28/21 15:00 Pulse Oximetry 96 02/28/21 15:00 MDM - Extremity Injury (Lower) Imaging Data^: XR R foot: Radiologist's impression: [address] [address] XRay Report Signed Patient: Rosie Martinez Unit #: [id number] : 1950 Age/Sex: 70 / F ADM Date: 02/28/21 Loc: ER Room/Bed: Attending Dr: Ordering Provider/Ordering MD: Ailin Jhaveri Date of Service: 02/28/21 Procedure(s): XR foot RT min 3V* [id number] Accession Number(s): [id number] Report Number: [id number] WS: [id number] Right foot, 3 views, 02/28/2021 Clinical Data: injury Comparison: Right foot, 02/02/2019. Findings: No fractures or dislocations are seen. No bone destruction or erosion is noted. The joint spaces and soft tissues are normal. XR/XR foot RT min 3V* [id number] Impression: Negative right foot. Dictated By: Natali Roche MD Signed By: Natali Roche MD Signed Date/Time: 02/28/21 1527 DD/ 1525 Discharge Plan Discharge Patient Disposition: Home Clinical Impression: Acute pain of right foot Condition: Stable Prescriptions: No Action valsartan 80 mg tablet 80 mg PO BID Qty: 60 RF: 2 escitalopram oxalate 10 mg tablet 10 mg PO DAILY RF: 0 pantoprazole 40 mg tablet,delayed release (DR/EC) 40 mg PO DAILY Qty: 30 RF: 3 cholecalciferol (vitamin D3) 50 mcg (2,000 unit) capsule 50 mcg PO DAILY Qty: 30 RF: 3 atorvastatin 40 mg tablet 40 mg PO DAILY RF: 0 carvedilol 25 mg tablet 37.5 mg PO BID Qty: 270 RF: 3 isosorbide mononitrate 30 mg tablet extended release 24 hr 15 mg PO BID Qty: 90 RF: 3 indapamide 1.25 mg tablet 2.5 mg PO DAILY Qty: 180 RF: 3 nitroglycerin 0.4 mg tablet, sublingual 0.4 mg SUBLINGUAL Q5M PRN (Reason: Chest Pain) Qty: 25 RF: 3 amlodipine 5 mg Tablet 5 mg PO DAILY Qty: 30 RF: 0 prednisone 2.5 mg tablet 2.5 mg PO DAILY Qty: 90 RF: 1 Discharge Orders: Discharge ED (Routine); Ordered 02/28/21 Ordered By: Ailin Jhaveri Referrals: Silvia Peng MD [Primary Care Provider] - Coding Level of Care Code ED Personnel Security Specialist for Chg Fwd Exam Expanded Problem Focused
--- NOTE | 2021-02-28 15:07 | XR_ITS ---
WS: [id number] Right foot, 3 views, 02/28/2021 Clinical Data: injury Comparison: Right foot, 02/02/2019. Findings: No fractures or dislocations are seen. No bone destruction or erosion is noted. The joint spaces and soft tissues are normal. XR/XR foot RT min 3V* [id number] Impression: Negative right foot.
--- NOTE | 2021-02-28 15:25 | PC.NURSE ---
Read and agree with assessment
== END 2021-02-28 15:30 | disposition home or self-care (01) ==
PROVIDERS: Emergency Provider Physician Assistant; PCP Family Medicine
DX: M79.671 Pain in right foot (principal); I25.10 Atherosclerotic heart disease of native coronary artery without angina pectoris; E78.5 Hyperlipidemia, unspecified; I10 Essential (primary) hypertension; Z87.891 Personal history of nicotine dependence
CPT/HCPCS: 73630; 99282

== ENCOUNTER 2021-03-28 16:45 | Emergency (ER) | payer MEDICARE, OTHER, SELFPAY ==
[2021-03-28 16:52] VITALS: BP 213/133; RESP 20; TEMP 36.7; O2SAT 96; BMI 27.9
--- NOTE | 2021-03-28 17:14 | XRR_ITS ---
PROCEDURE INFORMATION: Exam: XR Left Hand Exam date and time: 03/28/2021 5:24 PM Age: 70 years old Clinical indication: Injury or trauma; Other: Unknown; Bleeding/hemorrhage; Left little finger; Additional info: Pinky injury TECHNIQUE: Imaging protocol: XR Left hand. Views: 3 or more views. Total images: 3 COMPARISON: CR Hand 3 views, LEFT* [id number] 09/22/2019 10:44 AM FINDINGS: Bones/joints: No visible acute osseous abnormality, fracture, subluxation, or dislocation. No radiographically visible joint effusion. Osteopenia/osteoporosis. Mild primary osteoarthritis. Soft tissues: Soft tissues without evidence of edema, swelling, contusion, emphysema, or radiopaque foreign body. XR/XR hand LT min 3V* [id number] IMPRESSION: Nonacute.
--- NOTE | 2021-03-28 17:21 | ED_ITS ---
HPI - Extremity Problem General: Chief complaint: Extremity Injury, Upper Stated complaint: Pinky injury Time Seen by Provider: 03/28/21 17:11 History of Present Illness: HPI Narrative: Patient struck her left hand today on something and injured her pinky finger. It hurts to the touch now. Patient also not taking her blood pressure medication today. Says she forgot to denies any other injuries or problems MD Complaint: extremity pain Onset (ago): hour(s) Pain Consistency: constant Location: left and upper extremity Severity scale (1-10): 4 Quality: aching Relieving factors: nothing Exacerbating factors: palpation Associated symptoms: Reports no associated symptoms; Deny chest pain, fever(s) or rash Review of Systems Narrative: BP is up she did not take her medicine today. Const: Denies: fever(s), chills or body aches Eyes: Denies: change in vision or blurry vision ENMT: Denies: throat pain or nasal congestion Card: Denies: chest pain or dyspnea on exertion Resp: Denies: dyspnea, productive cough or non-productive cough GI: Denies: abdominal pain, nausea or vomiting Musc: Reports: extremity pain (Left pinky finger bruised painful distal part unknown injury) Skin/Breast: Denies: rash Neuro: Denies: headache(s) Psych: Denies: anxiety or depression Shayan/Lymph: Denies: easy bruising PFSH ED PFSH: Medical History (Updated 03/08/21 @ 00:00 by ) Abdominal aortic aneurysm (AAA) 3.0 cm to 5.0 cm in diameter in female 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 Hazel, 2013 S/P cataract extraction and insertion of intraocular lens bilateral S/P cervical spinal fusion ACDFF Dr. Dawn 12/07/2015 S/P right coronary artery (RCA) stent placement (~05/2019) Family History Other Cancer Rheumatoid arthritis Denies family history of Chronic kidney disease (CKD) Systemic lupus erythematosus (SLE) in adult Lung disease Hypertension Social History Smoking and tobacco status: former smoker Alcohol intake: current Alcohol intake frequency: holidays/special occasions only History of recent travel: No (12/10/19) Physical Exam Const: COMMON NORMALS: no acute distress, average body habitus and patient oriented x3 HENMT: COMMON NORMALS: normocephalic HEAD & SCALP: normal to inspection and normocephalic FACE & SINUS: normal facial exam Eye: COMMON NORMALS: conjunctivae normal GENERAL EYE: appearance normal, both eyes and all related structures CONJUNCTIVA: Yes conjunctivae normal Neck/C-Spine: COMMON NORMALS: no JVD Chest: COMMONS NORMALS: normal inspection of the chest Resp: COMMON NORMALS: normal respiratory effort and clear to auscultation bilaterally AUSCULTATION: clear to auscultation bilaterally Cardio: COMMON NORMALS: no JVD, regular rate and regular rhythm RATE: regular rate RHYTHM: regular rhythm GI: COMMON NORMALS: Normal to inspection, nondistended, normoactive bowel sounds present Extremity: RIGHT UPPER EXTREMITY: Yes hand & digits (Left pinky finger with bruising and dried blood tenderness at the nail base) Neuro: COMMON NORMALS: patient oriented x3 Course Vital Signs: Vital signs: Vital Signs Temperature 98.1 F 03/28/21 16:52 Respiratory Rate 20 H 03/28/21 16:52 Blood Pressure 213/133 03/28/21 16:52 Pulse Oximetry 96 03/28/21 16:52 Discharge Plan Discharge Prescriptions: No Action valsartan 80 mg tablet 80 mg PO BID Qty: 60 RF: 2 escitalopram oxalate 10 mg tablet 10 mg PO DAILY RF: 0 pantoprazole 40 mg tablet,delayed release (DR/EC) 40 mg PO DAILY Qty: 30 RF: 3 cholecalciferol (vitamin D3) 50 mcg (2,000 unit) capsule 50 mcg PO DAILY Qty: 30 RF: 3 atorvastatin 40 mg tablet 40 mg PO DAILY RF: 0 carvedilol 25 mg tablet 37.5 mg PO BID Qty: 270 RF: 3 isosorbide mononitrate 30 mg tablet extended release 24 hr 15 mg PO BID Qty: 90 RF: 3 indapamide 1.25 mg tablet 2.5 mg PO DAILY Qty: 180 RF: 3 nitroglycerin 0.4 mg tablet, sublingual 0.4 mg SUBLINGUAL Q5M PRN (Reason: Chest Pain) Qty: 25 RF: 3 amlodipine 5 mg Tablet 5 mg PO DAILY Qty: 30 RF: 0 prednisone 2.5 mg tablet 2.5 mg PO DAILY Qty: 90 RF: 1 Coding Level of Care Code ED Resident Advisor for Loulou Borrero
[2021-03-28] MEDS: cloNIDine 0.1 mg Tablet 0.2 MG PO (17:33)
[2021-03-28 17:50] VITALS: BP 248/108; RESP 20
[2021-03-28] MEDS: amlodipine 5 mg Tablet PO (18:16)
[2021-03-28 18:42] VITALS: BP 204/108; PULSE 84; RESP 16; O2SAT 97
== END 2021-03-28 18:43 | disposition home or self-care (01) ==
PROVIDERS: Emergency Provider Nurse Practitioner Family; PCP Family Medicine
DX: S60.052A Contusion of left little finger without damage to nail, initial encounter (principal); W22.8XXA Striking against or struck by other objects, initial encounter; I25.10 Atherosclerotic heart disease of native coronary artery without angina pectoris; E78.5 Hyperlipidemia, unspecified; I10 Essential (primary) hypertension; Z87.891 Personal history of nicotine dependence
CPT/HCPCS: 73130; 99283

== ENCOUNTER 2021-04-08 13:48 | Inpatient (IN) | payer MEDICARE, OTHER, SELFPAY ==
[2021-04-08] VITALS (14 sets, daily range): BP systolic 96–175; BP diastolic 53–125; PULSE 61–83; RESP 16–24; TEMP 36.4–36.8; O2SAT 93–97; BMI 28.3
--- NOTE | 2021-04-08 14:06 | XRR_ITS ---
PROCEDURE INFORMATION: Exam: XR Chest Exam date and time: 04/08/2021 2:26 PM Age: 70 years old Clinical indication: Syncope. Dyspnea. TECHNIQUE: Imaging protocol: XR of the chest. Views: 1 view. COMPARISON: CR XR chest 1V portable [id number] 12/19/2020 5:24 PM FINDINGS: Lungs: No pulmonary consolidation. Pleural spaces: No pleural effusion. No pneumothorax. Heart/Mediastinum: The cardiac silhouette is unchanged. No gross evidence of pneumomediastinum. Vasculature: There is tortuosity of the descending thoracic aorta. Bones/joints: Cervical hardware is noted. No gross fracture. XR/XR chest 1V portable [id number] IMPRESSION: Cardiomegaly with tortuous aorta; similar to prior.
--- NOTE | 2021-04-08 14:07 | ECG_ITS ---
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 Measurements Intervals [place] Rate: 61 P: 74 [place]: 165 QRS: 19 QRSD: 87 T: 49 QT: 434 QTc: 438 Interpretive Statements SINUS RHYTHM Compared to ECG 12/19/2020 17:13:42 No significant changes Electronically Signed On 04-10-2021 9:35:01 CDT by Nikki Doe M.D. [id number]
--- NOTE | 2021-04-08 14:13 | ED_ITS ---
HPI - Syncope General: Chief Complaint: Syncope Stated Complaint: SYNCOPE Time Seen by Provider: 04/08/21 14:06 Source: patient and EMS Mode of arrival: EMS Limitations: no limitations History of Present Illness: HPI narrative: Brenna is a very nice 70-year-old female who comes in after syncopal episode at home. She states that she has felt fine all day but she had just gotten up to walk in her house when she took approximately 3 steps and then went down to the ground. She vomited while she was unconscious. Does not believe that she was out for a long as the event was witnessed by her . The patient does complain of head, neck and shoulder pain. Patient's been told in the past that she is had a low heart rate that may end up having to have a pacemaker put in at some time. She denies any chest pain, palpitations but was short of breath. She has some vague abdominal discomfort. Patient denies any other complaints or concerns other than being sore at this time. Associated symptoms: Deny abdominal pain, chest pain, fever(s), headache(s), lightheadedness, nausea or vertigo Review of Systems Const: Denies: fever(s), chills, body aches, fatigue, malaise or diaphoresis Eyes: Denies: change in vision, blurry vision, photophobia, eye discomfort, eye discharge, eye redness or yellow eyes ENMT: Denies: throat pain, odynophagia, hoarseness, swelling of lips/tongue, ear or mastoid pain, ear discharge, change in hearing or nasal discharge Card: Reports: syncope; Denies: chest pain, palpitations, irregular heart rhythm, edema, lightheadedness, pre-syncope, dyspnea on exertion or orthopnea Resp: Denies: dyspnea, productive cough, non-productive cough, wheezing, hemoptysis or chest congestion GI: Denies: abdominal pain, nausea, vomiting, hematemesis, coffee ground emesis, heartburn, diarrhea, constipation, GI cramping, hematochezia or melena : Denies: flank pain, dysuria, urinary frequency, urinary urgency or hematuria Musc: Denies: neck pain, back pain, extremity pain, extremity swelling, joint pain, joint swelling, joint redness, joint warmth or joint stiffness Skin/Breast: Denies: rash, pruritus, erythema, skin pain or skin tenderness Neuro: Denies: headache(s), numbness in extremities, weakness in extremities, sensory changes, lack of coordination, difficulty walking, dizziness, vertigo, confusion, Slurred speech present or seizure-like activity Shayan/Lymph: Denies: easy bruising, easy bleeding, petechiae, purpura or enlarged lymph nodes All/Imm: Denies: urticaria, throat swelling, tongue swelling, facial swelling or acute wheezing PFSH ED PFSH: Medical History Abdominal aortic aneurysm (AAA) 3.0 cm to 5.0 cm in diameter in female 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 Hazel, 2014 S/P cataract extraction and insertion of intraocular lens bilateral S/P cervical spinal fusion ACDFF Dr. Dawn 12/07/2015 S/P right coronary artery (RCA) stent placement (~05/2019) Family History Other Cancer Rheumatoid arthritis Denies family history of Chronic kidney disease (CKD) Systemic lupus erythematosus (SLE) in adult Lung disease Hypertension Social History Smoking and tobacco status: former smoker Alcohol intake: current Alcohol intake frequency: holidays/special occasions only History of recent travel: No (12/10/19) Physical Exam Const: COMMON NORMALS: no acute distress, patient oriented x3, no limitations and alert GENERAL APPEARANCE: cooperative HENMT: COMMON NORMALS: normocephalic, atraumatic, external ears normal, EAC's normal and Normal external nose present HEAD & SCALP: normal to inspection, normocephalic and atraumatic FACE & SINUS: normal facial exam and face symmetric NOSE: Normal external nose present and Normal nares present EXTERNAL EAR: Yes external ears normal EXTERNAL AUDITORY CANAL: EAC's normal MOUTH: Normal oral and palatal mucosa present, lip normal and tongue normal Eye: COMMON NORMALS: Equal, round and reactive pupils present and conjunctivae normal GENERAL EYE: appearance normal, both eyes and all related structures ALIGNMENT: Yes alignment normal PERIORBITAL: periorbital findings normal EYELID: eyelids normal CONJUNCTIVA: Yes conjunctivae normal SCLERA: sclerae normal PUPIL: Yes Equal, round and reactive pupils present Neck/C-Spine: COMMON NORMALS: full ROM, no lymphadenopathy, supple, no meningeal signs and no JVD GENERAL: Yes normal visual inspection and Yes trachea midline Chest: COMMONS NORMALS: normal inspection of the chest and normal palpation of entire chest wall Resp: COMMON NORMALS: normal respiratory effort, No retractions, No use of accessory muscles and clear to auscultation bilaterally EFFORT & INSPECTION: Yes able to speak in complete sentences and Yes symmetric chest movement AUSCULTATION: clear to auscultation bilaterally, no crackles, no rales, no rhonchi and no wheezes Cardio: COMMON NORMALS: no JVD, regular rate, regular rhythm, S1 normal heart sound present and S2 normal heart sound present RATE: regular rate RHYTHM: regular rhythm HEART SOUNDS: S1 normal heart sound present, S2 normal heart sound present, no click, no gallops, no murmurs and no rubs GI: COMMON NORMALS: Soft to palpation and No hepatosplenomegaly present PALPATION: Yes Soft to palpation, No Tenderness to palpation present (GI), No Guarding due to palpation present (GI), No Rigid due to palpation, Yes No hepatosplenomegaly present, No Hernia present, No Palpable mass present and No Pulsatile mass present : COMMON NORMALS: Yes no CVA tenderness BLADDER/KIDNEY EXAM: Yes no CVA tenderness EXTERNAL FEMALE EXAM: No Hernia present Back/Pelvis: COMMON NORMALS: no CVA tenderness, thoracic and lumbar spine normal to inspection, no thoracic nor lumbar tenderness and thoraco-lumbar ROM normal Extremity: COMMON NORMALS: normal to inspection, full ROM, capillary refill normal, no joint enlargement, no clubbing, cyanosis or edema and no calf tenderness Neuro: COMMON NORMALS: patient oriented x3, CN's II-XII intact bilaterally, moves all extremities, no focal motor deficits and no sensory deficits noted SENSORIUM/ORIENTATION: Yes alert MENINGEAL SIGNS: Yes no meningeal signs SPEECH: speech normal Psych: COMMON NORMALS: mental status grossly normal, Normal thought process present, cooperative, normal affect, speech normal and activity/motor behavior normal SPEECH: Yes normal speech THOUGHT PROCESS: Normal thought process present Skin: COMMON NORMALS: no rashes or lesions noted, turgor normal, no jaundice, no petechiae and no mottling GENERAL SKIN EXAM: no rashes or lesions noted and turgor normal Course Vital Signs: Vital signs: Vital Signs Temperature 98.2 F 04/08/21 13:53 Pulse Rate 67 04/08/21 17:02 Respiratory Rate 18 04/08/21 17:02 Blood Pressure 139/61 04/08/21 17:02 Pulse Oximetry 96 04/08/21 17:02 MDM - Syncope MDM Narrative: Medical decision making narrative: 1715 -patient is feeling much better and is wanting to eat. She was orthostatic here by measurements. The patient's CT scan was discussed with Dr. Rodrigez and he agrees with the radiologist who did personally call me to explain that this was not an acute dissection. There is no evidence of AAA rupture. I believe the patient leaves has no orthostatic cause for her syncope. In the past Dr. Hooker had spoken with her and talk about her relative bradycardia that if it got any worse she may end up needing a pacemaker. I discussed all this with Dr. Kang who is agreement to admit the patient for observation he will come to see the patient in the ER. Lab Data: Labs: Lab Results 04/08/21 04/08/21 04/08/21 Range/Units 14:20 14:20 14:20 WBC 8.3 (4.0-10.0) 10^3/ uL RBC 4.83 (4.1-5.3) 10^6/u L Hgb 11.9 (11.5-15.3) g/dL Hct 41.3 (37.0-47.0) % MCV 85.5 (81-99) fL MCH 24.6 L (28.0-34.0) pg MCHC 28.8 L (30.0-36.0) g/dL RDW 16.9 H (12.1-15.1) % Plt Count 289 (130-400) 10^3/c mm MPV 10.5 H (7.4-10.4) fL Neut % (Auto) 78.0 % Lymph % (Auto) 13.1 % [place] % (Auto) 7.2 % Eos % (Auto) 0.8 % Baso % (Auto) 0.7 % Neut # (Auto) 6.46 (1.8-7.7) 10^3/u L Lymph # (Auto) 1.1 (0.8-4.8) 10^3/u L [place] # (Auto) 0.6 (0.2-0.9) 10^3/u L Eos # (Auto) 0.1 (0.0-0.8) 10^3/u L Baso # (Auto) 0.1 (0.0-0.1) 10^3/u L Nucleated RBC % (a uto) 0 % Nucleated RBCs # 0.0 /100WBC Sodium 139 (136-145) mmol/L Potassium 4.3 (3.5-5.1) mmol/L Chloride 105 (98-107) mmol/L Carbon Dioxide 21 L (22-29) mmol/L Anion Gap 17.3 (5-19) BUN 18 (8-23) mg/dL Creatinine 0.9 (0.5-0.9) mg/dL GFR Calculation Not Reportable Glucose 105 (65-115) mg/dL Calculated Osmolal ity 290 (285-295) mOsm/k g Calcium 9.1 (8.5-10.5) mg/dL Magnesium 2.2 (1.7-2.3) mg/dL Total Bilirubin 0.5 (0.15-1.2) mg/dL AST 21 (0-32) U/L ALT 17 (0-33) U/L Alkaline Phosphata se 147 H (35-105) IU/L Troponin T Baselin e 11 H (0-10) ng/L Total Protein 6.2 L (6.6-8.7) g/dL Albumin 3.6 (3.5-5.2) g/dL Globulin 2.6 (1.3-4.6) g/dL Urine Color (Yellow) Urine Appearance (CLEAR) Urine pH (5-7) Ur Specific Gravit y (1.005-1.030) Urine Protein (Negative) Urine Glucose (UA) (Normal) Urine Ketones (Negative) Urine Blood (Negative) Urine Nitrate (Negative) Urine Bilirubin (Negative) Urine Urobilinogen (Negative) mg/dL Ur Leukocyte Renée ase (Negative) Urine RBC (0-2) /hpf Urine WBC (0-5) /hpf Ur Squamous Epith Cells (0-5) /hpf Amorphous Sediment Urine Bacteria (NONE) /hpf Hyaline Casts /lpf Urine Mucus /hpf 04/08/21 Range/Units 15:07 WBC (4.0-10.0) 10^3/ uL RBC (4.1-5.3) 10^6/u L Hgb (11.5-15.3) g/dL Hct (37.0-47.0) % MCV (81-99) fL MCH (28.0-34.0) pg MCHC (30.0-36.0) g/dL RDW (12.1-15.1) % Plt Count (130-400) 10^3/c mm MPV (7.4-10.4) fL Neut % (Auto) % Lymph % (Auto) % [place] % (Auto) % Eos % (Auto) % Baso % (Auto) % Neut # (Auto) (1.8-7.7) 10^3/u L Lymph # (Auto) (0.8-4.8) 10^3/u L [place] # (Auto) (0.2-0.9) 10^3/u L Eos # (Auto) (0.0-0.8) 10^3/u L Baso # (Auto) (0.0-0.1) 10^3/u L Nucleated RBC % (a uto) % Nucleated RBCs # /100WBC Sodium (136-145) mmol/L Potassium (3.5-5.1) mmol/L Chloride (98-107) mmol/L Carbon Dioxide (22-29) mmol/L Anion Gap (5-19) BUN (8-23) mg/dL Creatinine (0.5-0.9) mg/dL GFR Calculation Glucose (65-115) mg/dL Calculated Osmolal ity (285-295) mOsm/k g Calcium (8.5-10.5) mg/dL Magnesium (1.7-2.3) mg/dL Total Bilirubin (0.15-1.2) mg/dL AST (0-32) U/L ALT (0-33) U/L Alkaline Phosphata se (35-105) IU/L Troponin T Baselin e (0-10) ng/L Total Protein (6.6-8.7) g/dL Albumin (3.5-5.2) g/dL Globulin (1.3-4.6) g/dL Urine Color Straw (Yellow) Urine Appearance Clear (CLEAR) Urine pH 7 (5-7) Ur Specific Gravit y 1.010 (1.005-1.030) Urine Protein 1+ H (Negative) Urine Glucose (UA) Norm (Normal) Urine Ketones Negative (Negative) Urine Blood Neg (Negative) Urine Nitrate Negative (Negative) Urine Bilirubin Neg (Negative) Urine Urobilinogen Norm (Negative) mg/dL Ur Leukocyte Renée ase Negative (Negative) Urine RBC None (0-2) /hpf Urine WBC None (0-5) /hpf Ur Squamous Epith Cells Rare (0-5) /hpf Amorphous Sediment Not Reportable Urine Bacteria Trace (NONE) /hpf Hyaline Casts Rare /lpf Urine Mucus 1+ /hpf Imaging Data^: CTA chest/abdomen/pelvis: Radiologist's impression: [place] [address] CT Scan Report Signed with Addenda Patient: Rosie Martinez Unit #: [id number] : 1950 Age/Sex: 70 / F ADM Date: 04/08/21 Loc: ER Room/Bed: Attending Dr: Ordering Provider/Ordering MD: Christina Cavanaugh DO Date of Service: 04/08/21 Procedure(s): CT angio chest abdomen pelvis Accession Number(s): [id number] Report Number: [id number]/CT angio chest abdomen pelvis Findings discussed with Christina Cavanaugh at 04/08/2021 4:47 PM CDT. Radiation Dose CTDIVOL = (mGy): DLP = 1381.47 1381.47 (mGy-cm) Addendum Dictated By: David Cazares Addendum Signed By: David Cazares Signed Date/Time: 04/08/21 3210 Addendum Cosigned By: PROCEDURE INFORMATION: Exam: CTA Chest Without And With Contrast Exam date and time: 04/08/2021 3:42 PM Age: 70 years old Clinical indication: Syncope and fall with blunt trauma. Now complains of nausea, vomiting and abdominal pain. History of abdominal aortic and right iliac aneurysms. Evaluate for dissection/aneurysm. TECHNIQUE: Imaging protocol: Computed tomographic angiography of the chest without and with contrast. 3D rendering (Not supervised by radiologist): MIP and/or 3D reconstructed images were created by the technologist. Radiation optimization: All CT scans at this facility use at least one of these dose optimization techniques: automated exposure control; mA and/or kV adjustment per patient size (includes targeted exams where dose is matched to clinical indication); or iterative reconstruction. Contrast material: OMNI 350; Contrast volume: 95 ml; Contrast route: INTRAVENOUS (IV); COMPARISON: CT angio chest w abd pel w con 12/19/2020 6:02 PM RADIATION DOSE METRICS: Total DLP (mGy-cm): 1381.47 FINDINGS: Pulmonary arteries: No pulmonary embolus is seen. Aorta: No thoracic aortic aneurysm. There is irregular atheromatous plaque in the descending thoracic aorta with a focal intimal flap (series 6, image 61) and a small penetrating ulcer (series 6, image 99). There is no evidence of propagating dissection. Thyroid: There is an indeterminate left thyroid nodule that measures 2.4 cm. Lungs: There is mild scarring in the lung apices. No pulmonary consolidation. A pulmonary micronodule in the left lower lobe is unchanged and measures 4.6 mm (image 66). Pleural spaces: No pleural effusion. No pneumothorax. Heart: Coronary arterial calcifications are noted. No pericardial effusion. Mediastinal space: There is subtle nodular wall thickening of the esophagus (series 6, image 87) that appears increased from prior. This could represent an early esophageal mass. Consider endoscopy. No hiatal hernia. Lymph nodes: No significant mediastinal lymphadenopathy. Bones/joints: No acute fracture is seen. IMPRESSION: 1. No thoracic aortic aneurysm. There is irregular atheromatous plaque in the descending thoracic aorta with a focal intimal flap and a small penetrating ulcer. There is no evidence of propagating dissection or rupture. 2. No pulmonary embolus. 3. There is subtle nodular wall thickening of the esophagus that appears increased from prior. This could represent an early esophageal mass. Consider endoscopy. 4. Coronary artery disease. 5. Solid pulmonary micronodule measuring 4.6 mm. Unchanged from December 2020. As per Fleischner Society 2017 guidelines for follow-up and management of pulmonary nodules: For patients at low risk (minimal or absent history of smoking and of other known risk factors), no routine follow-up. For patient at high risk (history of smoking or of other known risk factors), recommend optional CT at 12 months. COMMENTS: Consistent with the [employer]'s Incidental Findings Committee white paper (J Am Missy Radiol 2015): In patients aged 35 years and older with an incidental thyroid nodule equal to or greater than 1.[address], MRI or extrathyroidal US, further evaluation with dedicated thyroid US is recommended for patients with normal life expectancy and without comorbidities. For smaller nodules without suspicious features, no further evaluation or follow up is recommended. PROCEDURE INFORMATION: Exam: CTA Abdomen and Pelvis With Contrast Exam date and time: 04/08/2021 3:42 PM Age: 70 years old Clinical indication: Syncope and fall with blunt trauma. Now complains of nausea, vomiting and abdominal pain. History of abdominal aortic and right iliac aneurysms. Evaluate for dissection/aneurysm. TECHNIQUE: Imaging protocol: Computed tomographic angiography of the abdomen and pelvis with contrast material. 3D rendering (Not supervised by radiologist): MIP and/or 3D reconstructed images were created by the technologist. Radiation optimization: All CT scans at this facility use at least one of these dose optimization techniques: automated exposure control; mA and/or kV adjustment per patient size (includes targeted exams where dose is matched to clinical indication); or iterative reconstruction. Contrast material: OMNI 350; Contrast volume: 95 ml; Contrast route: INTRAVENOUS (IV); COMPARISON: CT angio chest w abd pel w con 12/19/2020 6:02 PM RADIATION DOSE METRICS: Total DLP (mGy-cm): 1381.47 FINDINGS: Abdominal/pelvic arterial system: There is an infrarenal abdominal aortic aneurysm with small thrombosed saccular component on the right. This aneurysm measures 3.3 x 4.2 cm. A distal abdominal aortic aneurysm measures 3.9 x 4.0 cm. There is extensive atheromatous plaque within the aorta. No aortic dissection is seen. 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 There is approximately 30% narrowing of the proximal superior mesenteric artery. The inferior mesenteric artery is grossly patent. There is approximately 55-60% narrowing of the proximal right renal artery. 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 A right common iliac artery aneurysm measures 1.9 cm. There is no evidence of rupture or dissection. The left common iliac artery is patent. The external iliac and proximal common femoral arteries are patent bilaterally. The proximal left internal iliac artery is occluded with subsequent reconstitution. There is severe narrowing or occlusion of the proximal right internal iliac artery with subsequent reconstitution. Liver: The liver is unremarkable. Gallbladder and bile ducts: The gallbladder is unremarkable. Pancreas: The pancreas is unremarkable. Spleen: The spleen is unremarkable. Adrenal glands: The adrenal glands are unremarkable. Kidneys and ureters: The left kidney is atrophic. A simple left renal cyst measures 2 cm. Nonobstructive left renal stone. A subcentimeter right renal hypodensity is too small to accurately characterize and requires no follow-up. No hydronephrosis. Stomach and bowel: The stomach and small bowel are unremarkable. Colonic diverticulosis is seen without evidence of acute diverticulitis. Appendix: The appendix is unremarkable. Intraperitoneal space: No free intraperitoneal air is seen. Lymph nodes: A periportal lymph node measures 1.1 x 1.3 cm. Urinary bladder: The bladder is unremarkable. Reproductive: There has been prior hysterectomy. Bones/joints: No acute fracture is seen. Soft tissues: Small fat containing umbilical hernia. CT/CT angio chest abdomen pelvis IMPRESSION: 1. There is an infrarenal abdominal aortic aneurysm with small thrombosed saccular component on the right. This aneurysm measures 3.3 x 4.2 cm. A distal abdominal aortic aneurysm measures 3.9 x 4.0 cm. There is extensive atheromatous plaque within the aorta. No aortic dissection is seen. 2. 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 3. There is approximately 30% narrowing of the proximal superior mesenteric artery. 4. There is approximately 55-60% narrowing of the proximal right renal artery. 5. 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 6. A right common iliac artery aneurysm measures 1.9 cm. There is no evidence of rupture or dissection. 7. The proximal left internal iliac artery is occluded with subsequent reconstitution. 8. There is severe narrowing or occlusion of the proximal right internal iliac artery with subsequent reconstitution. 9. Colonic diverticulosis is seen without evidence of acute diverticulitis. 10. Mild periportal lymphadenopathy. 11. Nonobstructive left renal stone. Radiation Dose CTDIVOL = (mGy): DLP = 1381.47 1381.47 (mGy-cm) Dictated By: David Cazares Signed By: David Cazares Signed Date/Time: 04/08/211647 DD/ 46 CT Head: Radiologist's impression: [employer] [place] [address] CT Scan Report Signed Patient: Rosie Martinez Unit #: [id number] : 1950 Age/Sex: 70 / F ADM Date: 04/08/21 Loc: ER Room/Bed: Attending Dr: Ordering Provider/Ordering MD: Christina Cavanaugh DO Date of Service: 04/08/21 Procedure(s): CT head wo con* [id number] Accession Number(s): [id number] Report Number: [id number] PROCEDURE INFORMATION: Exam: CT Head Without Contrast Exam date and time: 04/08/2021 3:42 PM Age: 70 years old Clinical indication: Fall/injury. Blunt trauma. TECHNIQUE: Imaging protocol: Computed tomography of the head without contrast. Radiation optimization: All CT scans at this facility use at least one of these dose optimization techniques: automated exposure control; mA and/or kV adjustment per patient size (includes targeted exams where dose is matched to clinical indication); or iterative reconstruction. COMPARISON: CT head wo con* [id number] 06/07/2019 3:13 PM RADIATION DOSE METRICS: Total DLP (mGy-cm): 873.47 FINDINGS: Brain: No acute intracranial hemorrhage. No mass, mass effect or midline shift. There is no evidence of acute large vessel infarct. There is moderate patchy subcortical and periventricular hypodensity, most commonly associated with small vessel ischemic disease of indeterminate age. The posterior fossa is grossly unremarkable; however, it is partially obscurred by beam hardening artifact. Cerebral ventricles: The ventricles are prominent, compatible with mild parenchymal volume loss. Bones/joints: No acute fracture is seen. Paranasal sinuses: The visualized paranasal sinuses are clear. Mastoid air cells: No mastoid effusion. Orbital cavity: The visualized orbits are unremarkable. Submandibular/Parotid glands: The left parotid gland appears somewhat atrophic. CT/CT head wo con* [id number] IMPRESSION: 1. Mild parenchymal volume loss. 2. Moderate presumed small vessel ischemic disease of indeterminate age; this appears worsened from prior. 3. No acute intracranial abnormality. Radiation Dose CTDIVOL = (mGy): DLP = 873.47 (mGy-cm) Dictated By: David Cazares Signed By: David Cazares Signed Date/Time: 04/08/211622 DD/ 162 CT cervical spine: Radiologist's impression: [employer] [address] [address] Scan Report Signed Patient: Rosie Martinez Unit #: [id number] : 1950 Age/Sex: 70 / F ADM Date: 04/08/21 Loc: ER Room/Bed: Attending Dr: Ordering Provider/Ordering MD: Christina Cavanaugh DO Date of Service: 04/08/21 Procedure(s): CT cervical spin wo con* [id number] Accession Number(s): [id number] Report Number: [id number] PROCEDURE INFORMATION: Exam: CT Cervical Spine Without Contrast Exam date and time: 04/08/2021 3:42 PM Age: 70 years old Clinical indication: Fall with blunt trauma and neck pain. TECHNIQUE: Imaging protocol: Computed tomography images of the cervical spine without contrast. Radiation optimization: All CT scans at this facility use at least one of these dose optimization techniques: automated exposure control; mA and/or kV adjustment per patient size (includes targeted exams where dose is matched to clinical indication); or iterative reconstruction. COMPARISON: CT Cervical Spine w cont [id number] 01/20/2018 10:26 AM RADIATION DOSE METRICS: Total DLP (mGy-cm): 455.5 FINDINGS: There are grade 1 anterolisthesis of C3 and C4. There has been prior ventral cervical fusion extending from C5-C6. No prevertebral soft tissue swelling is seen. Mild degenerative disc disease. No acute fracture is identified. The atlantoaxial interval and craniocervical junction are maintained. Small, scattered cervical lymph nodes are noted. There is scarring in the lung apices. An indeterminate left thyroid nodule measures 1.[address]/CT cervical spin wo con* [id number] IMPRESSION: 1. No acute cervical fracture. 2. Mild degenerative disc disease. 3. Indeterminate left thyroid nodule. Recommend nonemergent thyroid ultrasound to better characterize. Radiation Dose CTDIVOL = (mGy): DLP = 455.5 (mGy-cm) Dictated By: David Cazares Signed By: David Cazares Signed Date/Time: 04/08/211627 DD/ 26 Discharge Plan Discharge Prescriptions: No Action valsartan 80 mg tablet 80 mg PO BID Qty: 60 RF: 2 atorvastatin 40 mg tablet 40 mg PO DAILY RF: 0 carvedilol 25 mg tablet 37.5 mg PO BID Qty: 270 RF: 3 nitroglycerin 0.4 mg tablet, sublingual 0.4 mg SUBLINGUAL Q5M PRN (Reason: Chest Pain) Qty: 25 RF: 3 Aspir-81 81 mg Tablet,Delayed Release (Dr/Ec) 81 mg PO DAILY RF: 0 Vitamin D3 1 cap PO DAILY RF: 0 melatonin 1 tab PO BEDTIME RF: 0 isosorbide mononitrate 30 mg tablet extended release 24 hr 30 mg PO DAILY RF: 0 Coding Level of Care Code ED Clearance Rep for Chg Fwd Exam Comprehensive
[2021-04-08] MEDS: sodium chloride 0.9% 1,000 ML 100 ML IV (14:36)
[2021-04-08 14:56] LABS: Basophils # 0.1 10^3/uL (0.0-0.1); Basophils % 0.7 %; Eosinophils # 0.1 10^3/uL (0.0-0.8); Eosinophils % 0.8 %; Hematocrit 41.3 % (37.0-47.0); Hemoglobin 11.9 g/dL (11.5-15.3); Lymphocytes # 1.1 10^3/uL (0.8-4.8); Lymphocytes % 13.1 %; Mean Corpuscular HGB Conc 28.8 g/dL (30.0-36.0); Mean Corpuscular Hemoglobin 24.6 pg (28.0-34.0); Mean Corpuscular Volume 85.5 fL (81-99); Mean Platelet Volume 10.5 fL (7.4-10.4); Monocytes # 0.6 10^3/uL (0.2-0.9); Monocytes % 7.2 %; Neutrophils # 6.46 10^3/uL (1.8-7.7); Nucleated Red Blood Cells % 0 %; Platelet Count 289 10^3/cmm (130-400); Red Blood Count 4.83 10^6/uL (4.1-5.3); Red Cell Distribution Width 16.9 % (12.1-15.1); White Blood Count 8.3 10^3/uL (4.0-10.0)
[2021-04-08] MEDS: acetaminophen 500 mg Tablet 1000 MG PO (15:02)
--- NOTE | 2021-04-08 15:12 | XRR_ITS ---
PROCEDURE INFORMATION: Exam: XR Left Shoulder Exam date and time: 04/08/2021 3:13 PM Age: 70 years old Clinical indication: Fall with blunt left shoulder trauma. Pain/injury. TECHNIQUE: Imaging protocol: XR Left shoulder. Views: 2 or more views. COMPARISON: No relevant prior studies available. FINDINGS: No fracture, dislocation or subluxation. No periosteal reaction or supsicious bone lesion. There is mild primary osteoarthritis at the acromioclavicular joint. XR/XR shoulder LT min 2V* [id number] IMPRESSION: 1. No acute fracture. 2. 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
[2021-04-08 15:20] LABS: Troponin(5th) Baseline 11 ng/L (0-10)
--- NOTE | 2021-04-08 15:25 | PC.NURSE ---
XR done at bedside
[2021-04-08 15:35] LABS: Urine Appearance Clear (CLEAR); Urine Color Straw (Yellow); pH Urine 7 (5-7)
[2021-04-08 15:36] LABS: Alanine Aminotransferase 17 U/L (0-33); Albumin Level 3.6 g/dL (3.5-5.2); Alkaline Phosphatase 147 IU/L (35-105); Aspartate Amino Transferase 21 U/L (0-32); Blood Urea Nitrogen 18 mg/dL (8-23); Calcium 9.1 mg/dL (8.5-10.5); Carbon Dioxide 21 mmol/L (22-29); Chloride 105 mmol/L (98-107); Creatinine Clr Calc Pharmacy 58.8712; Globulin 2.6 g/dL (1.3-4.6); Glucose 105 mg/dL (65-115); Magnesium 2.2 mg/dL (1.7-2.3); Osmolality Calculated 290 mOsm/kg (285-295); Sodium 139 mmol/L (136-145); Total Bilirubin 0.5 mg/dL (0.15-1.2); Total Protein 6.2 g/dL (6.6-8.7)
[2021-04-08 15:36] LABS: Add Urine Microscopic? YES; Bilirubin Urine Neg (Negative); Blood Urine Neg (Negative); Glucose Urine UA Norm (Normal); Ketones Urine Negative (Negative); Leukocyte Esterase Urine Negative (Negative); Nitrate Urine Negative (Negative); Protein Urine 1+ (Negative); Urobilinogen Urine Norm (Negative)
[2021-04-08 15:38] LABS: Bacteria Urine TRACE /hpf; Hyaline Casts Urine RARE /lpf; Mucus Urine 1+ /hpf; Squamous Epithelial Cell Urine RARE /hpf (0-5)
[2021-04-08 15:38] LABS: Anion Gap 17.3 (5-19); Potassium 4.3 mmol/L (3.5-5.1)
[2021-04-08 15:39] LABS: Add Urine Culture? No
--- NOTE | 2021-04-08 15:40 | PC.NURSE ---
IV infiltrated, IVF paused for new IV insertion.
--- NOTE | 2021-04-08 15:52 | PC.NURSE ---
Pt to CT
--- NOTE | 2021-04-08 15:53 | PC.PHAR ---
PT AND PTS STATES THEY ARE UNSURE OF ALL THE MEDICATIONS THE PT TAKES-MEDICATIONS ENTERED ARE MEDS THAT SHOW UP THAT HAVE BEEN FILLED RECENTLY ON EXT MED HISTORY-PT STATES SHE DOESNT TAKE HER MEDS LIKE SHE SHOULD STATES SHE WOULD JUST TAKE A WHOLE TAB AND NOT HALF ANY TABS-PT STATES SHE DOES TAKE ASPIRIN AND MELATONIN-PT STATES SHE TAKES MEDS WHEN SHE CAN REMEMBER-PT STATES SHE THINKS SHE TAKES ABOUT 11 TABS IN THE AM AND 1 TAB AT BEDTIME-TOLD PT WHAT [facility] HAS FILLED RECENTLY AND SHE STATES WELL I DONT KNOW THEN-COMMENTS ARE MADE ON EACH RX
--- NOTE | 2021-04-08 16:07 | ECG_ITS ---
[facility] Test Date: 2021-04-08 Pat Name: Rosie Martinez Department: Room: Gender: Female Can Doffer: : 1950 Requested By: Christina Henriquez Order Number: [id number] Carlos MD: Nikki Doe M.D. Measurements Intervals [place] Rate: 67 P: 76 OK: 147 QRS: 22 QRSD: 78 T: 57 QT: 404 QTc: 429 Interpretive Statements SINUS RHYTHM Compared to ECG 04/08/2021 14:10:38 No significant changes Electronically Signed On 04-10-2021 17:42:49 CDT by Nikki Doe M.D. [email or web address]
[2021-04-08] MEDS: iohexol 350 mg/mL 100 mL Btl IV (16:09)
[2021-04-08] MEDS: sodium chloride 0.9% 1,000 ML 999 ML IV (17:04)
[2021-04-08 17:28] LABS: Troponin 5 2HR 10.15 ng/L (0-10)
[2021-04-08 17:29] LABS: Troponin 5 2HR Delta -0.85 ABS# (0-10)
--- NOTE | 2021-04-08 17:47 | XRR_ITS ---
NOTE: Report was unsigned for reason: Order was edited. Original Signature date and time was: 04/08/21 @ 1828 PROCEDURE INFORMATION: Exam: XR Bilateral Hips Exam date and time: 04/08/2021 5:47 PM Age: 70 years old Clinical indication: Pain and injury or trauma; Fall; Blunt trauma (contusions or hematomas); Bilateral; Hip pain TECHNIQUE: Imaging protocol: XR bilateral hips. Views: 2 views of hips with pelvis when performed. COMPARISON: CT angio chest abdomen pelvis 04/08/2021 4:02 PM FINDINGS: Bones/joints: Unremarkable. No acute fracture. Soft tissues: Unremarkable. MTDD XR/XR hip BI 2V wo/w pel [id number] IMPRESSION: No acute findings.
--- NOTE | 2021-04-08 17:47 | P.HP_ITS ---
Providers/Chief Complaint Primary Care Provider: Silvia Peng MD Chief Complaint: SYNCOPE History of Present Illness Rosie Martinez is a 70 year old female with a past medical history of abdominal aortic aneurysm, peripheral vascular disease, MATY, type I Arnold- Chiari malformation, hypertension, hyperlipidemia, CAD status post PCI to proximal mid RCA in 2019, aneurysm right common iliac artery who presents to [facility] due to syncopal episode. Patient tells me that she woke up this morning, nothing on coronary, in the afternoon, she was walking to the kitchen to grab full chips, as she was walking back to the living room, she suddenly fell to the floor, her was able to catch her, break her fall, no preceding lightheadedness, no dizziness, no nausea, no vomiting, no chest pain, no palpitations, he tells me that she was on the floor for roughly 45 minutes, was groggy, he is not sure if she passed out, but really was not responding appropriately, she denies being unconscious, but does not remember th e event, he did vomit during the episode, not really responsive, he did not notice any facial droop, slurring of her speech, no seizure-like symptoms, he just was not acting appropriately, EMS came out to her place, brought her to [facility], she was brought to [facility], was confused, not acting appropriately, she was given a bag of fluids, her symptoms improved, she was found to be orthostatic positive, her only complaint is left shoulder pain, back pain, hip pain,, no significant arrhythmias, no significant electrolyte abnormalities, no UTI, no pneumonia, no abdominal aortic aneurysm rupture, CT of the head was negative intracranial bleed, no history, no CVA, afebrile, no significant ST-T wave changes seen on EKG, no significant arrhythmia events on telemetry, hospitalist team was called for admission, of note patient was seen by Dr. Hooker a few days ago, her Coreg dose was increased to 37.5 mg twice daily, due to complaints of chest pressure. Patient denies currently chest pressure, she does not even remember seeing Dr. Hooker, her reassures her that she just saw him a few days ago, after her basal cell carcinoma on her left shoulder was removed. Currently she is alert oriented x3, follows all commands, does have episodes of forgetfulness, she denies having history of dementia, no focal neurologic deficits, no slurring of speech, no facial droop, NIH stroke scale 0, no chest pain, no palpitations, lightheadedness, dizziness. She tells me she hydrates well, no diarrhea, no history of dysuria, no history of dehydration, no recent illness Review of Systems Const: Denies: fever(s), chills, fatigue or malaise Eyes: Denies: change in vision or blurry vision ENMT: Denies: throat pain or nasal congestion Card: Reports: syncope; Denies: chest pain, palpitations, irregular heart rhythm, edema, swelling of feet/ankles, lightheadedness, pre-syncope or dyspnea on exertion Resp: Denies: dyspnea, productive cough, non-productive cough or wheezing GI: Denies: abdominal pain, nausea, vomiting, hematemesis, diarrhea, constipation, hematochezia or melena : Denies: flank pain, dysuria or urinary frequency Musc: Denies: neck pain or back pain Skin/Breast: Denies: rash Neuro: Denies: headache(s), dizziness or vertigo Psych: Denies: anxiety or depression Endo: Denies: polyuria or polydipsia Medications/Allergies Home Medications Medication Instructions Recorded Confirmed Last Taken Type atorvastatin 40 mg tablet 40 mg PO DAILY 10/18/20 04/08/21 11/07/20 History nitroglycerin 0.4 mg sublingual 0.4 mg SUBLINGUAL Q5M PRN #25 tab 12/20/20 04/08/21 Unknown Rx tablet carvedilol 25 mg tablet 37.5 mg PO BID #270 tab 01/10/21 04/08/21 Unknown Rx valsartan 80 mg tablet 80 mg PO BID #60 tab 02/09/21 04/08/21 Unknown Rx Vitamin D3 1 cap PO DAILY 04/08/21 04/08/21 Unknown History aspirin [Aspir-81] 81 mg PO DAILY 04/08/21 04/08/21 Unknown History isosorbide mononitrate 30 mg PO DAILY 04/08/21 04/08/21 Unknown History melatonin 1 tab PO BEDTIME 04/08/21 04/08/21 Unknown History Allergies Allergy/AdvReac Type Severity Reaction Status Date / Time codeine Allergy Unknown Unknown Verified 03/28/21 16:51 morphine Allergy Unknown Unknown Verified 03/28/21 16:51 Opioids - Morphine Analogues Allergy Unknown Unknown Verified 03/28/21 16:51 Opioids-Meperidine and Allergy Unknown Unknown Verified 03/28/21 16:51 Related Opioids-Methadone and Related Allergy Unknown Unknown Verified 03/28/21 16:51 hydrocodone Allergy VOMITING Verified 03/28/21 16:51 AND PASSING OUT oxycodone Allergy VOMITING,PASSES Verified 03/28/21 16:51 OUT PFSH Acute PFSH: Medical History (Updated 04/08/21 @ 17:57 by Sam Kang MD) Abdominal aortic aneurysm (AAA) 3.0 cm to 5.0 cm in diameter in female 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 Hazel, 2014 S/P cataract extraction and insertion of intraocular lens bilateral S/P cervical spinal fusion ACDFF Dr. Dawn 12/07/2015 S/P right coronary artery (RCA) stent placement (~05/2019) Family History Other Cancer Rheumatoid arthritis Denies family history of Chronic kidney disease (CKD) Systemic lupus erythematosus (SLE) in adult Lung disease Hypertension Social History Smoking and tobacco status: former smoker Alcohol intake: current Alcohol intake frequency: holidays/special occasions only History of recent travel: No (12/10/19) Vitals/I&O/Wt Last Vital Signs Temp 98.2 F 04/08/21 13:53 Pulse 69 04/08/21 17: Resp 20 H 04/08/21 17:21 BP 139/61 04/08/21 17:21 Pulse Ox 96 04/08/21 17:21 04/08/21 04/08/21 04/08/21 06:59 14:59 22:59 Intake Total 1000 / 1000 Balance 1000 / 1000 Weight last 48 hrs Weight 77.111 kg Physical Exam Const: COMMON NORMALS: no acute distress and patient oriented x3 GENERAL APPEARANCE: cooperative and comfortable HENMT: COMMON NORMALS: normocephalic HEAD & SCALP: normocephalic Eye: COMMON NORMALS: Equal, round and reactive pupils present and EOMs intact bilaterally GENERAL EYE: appearance normal, both eyes and all related structures PUPIL: Yes Equal, round and reactive pupils present Neck/C-Spine: COMMON NORMALS: full ROM, no lymphadenopathy, no JVD and Thyroid normal THYROID: Thyroid normal Lymph: LYMPHATIC: no lymphadenopathy noted Resp: COMMON NORMALS: normal respiratory effort, No retractions, No use of accessory muscles and clear to auscultation bilaterally AUSCULTATION: clear to auscultation bilaterally Cardio: COMMON NORMALS: no JVD, regular rate, regular rhythm, S1 normal heart sound present, S2 normal heart sound present, No gallops present (Cardio), No clicks present (Cardio) and No murmurs present (Cardio) RATE: regular rate RHYTHM: regular rhythm HEART SOUNDS: S1 normal heart sound present and S2 normal heart sound present GI: COMMON NORMALS: Normal to inspection, nondistended, normoactive bowel sounds present, Soft to palpation, non-tender and No hepatosplenomegaly present PALPATION: Yes Soft to palpation and Yes No hepatosplenomegaly present Extremity: COMMON NORMALS: normal to inspection, full ROM and no pedal edema Neuro: COMMON NORMALS: patient oriented x3, CN's II-XII intact bilaterally, moves all extremities and no focal motor deficits Psych: COMMON NORMALS: mental status grossly normal, Normal thought process present and cooperative THOUGHT PROCESS: Normal thought process present Data : 04/08/21 14:20 04/08/21 14:20 A&P Assessment and plan (1) Syncope: -Likely orthostatic syncope -Likely related to Coreg -But apparently she was told by Dr. Kimball at 1 point that she might need a pacemaker, for possible bradycardia -But will evaluate for underlying cardiac etiology given cardiac history Plan: -Admit to cardiac stepdown unit -Neurochecks, aspiration precautions, seizure precautions -She did vomit, no shortness of breath, monitor for evidence of aspiration pneumonia, hold off on antibiotics for now -Hold Coreg, hold Imdur, hold losartan -Cardiac echo, carotid artery ultrasound -X-ray of the hip due to bilateral hip pain -Follow TSH, follow troponins, serial EKGs, follow-up telemetry monitoring -Orthostatic vitals every 8 hours -Currently receiving IV fluids -We will touch base with cardiology once work-up is complete -PT OT -Full code -Lovenox for DVT prophylaxis Status: Acute (2) Daytime somnolence: Status: Acute (3) Peripheral vascular disease: Status: Acute (4) Obstructive sleep apnea: Status: Acute (5) Hypertension, essential: Status: Acute (6) Coronary artery disease: Status: Acute Qualifiers: Coronary Disease-Associated Artery/Lesion type: [place] artery [place] vs. transplanted heart: [place] heart Associated angina: without angina Qualified Code(s): I25.10 - Atherosclerotic heart disease of [place] coronary artery without angina pectoris (7) Hyperlipidemia: Status: Acute (8) Abdominal aortic aneurysm (AAA) 3.0 cm to 5.0 cm in diameter in female: Status: Acute (9) Aneurysm of right common iliac artery: Status: Acute (10) Primary osteoarthritis of knees, bilateral: Status: Acute Additional A&P Information Indeterminate left thyroid nodule, will require an patient follow-up with a thyroid ultrasound CT scan of the abdomen pelvis showed irregular erythematous plaque in the descending thoracic aorta with focal intimal flap and small penetrating ulcer, Dr. Nye did review the case with radiologist, he stated that this is not a dissection, and his edition he reviewed the case with Dr. 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, left kidney severely atrophic Right common iliac artery aneurysm, no dissection Left internal iliac artery is occluded with subsequent reconstitution Severe narrowing or occlusion of the proximal right internal iliac artery with subsequent reconstitution Mild periportal lymphadenopathy Nonobstructive left renal stone Attestations Medical Necessity Statement*: Requires hospitalization, outpatient with o bservation, for syncope, fall Coding Level of Care Code Acute Government Relations Manager for Chg Fwd Diagnoses Syncope R55 Daytime somnolence R40.0 Peripheral vascular disease I73.9 Obstructive sleep apnea G47.33 Hypertension, essential I10 Coronary artery disease I25.10 Coronary Disease-Associated Artery/Lesion type: [place] artery [place] vs. transplanted heart: [place] heart Associated angina: without angina Hyperlipidemia E78.5 Abdominal aortic aneurysm (AAA) 3.0 cm to 5.0 cm in diameter in female I71.4 Aneurysm of right common iliac artery I72.3 Primary osteoarthritis of knees, bilateral M17.0
--- NOTE | 2021-04-08 18:15 | PC.NURSE ---
From ER Received pt from ER. Denies any chest pain or dizziness. pain level of 8/10 in left shoulder. She refused any pain medication when offered. offered pt a warm compress if she needed. Call light handed to pt.
[2021-04-08] MEDS: enoxaparin 40 mg/0.4 mL Syringe SUBCUT (19:36)
[2021-04-08 21:10] LABS: Troponin 5 6HR 7.75 ng/L (0-10)
[2021-04-08 21:16] LABS: Troponin 5 6HR Delta -3.25 ng/L (0-12)
[2021-04-09] VITALS (68 sets, daily range): BP systolic 140–240; BP diastolic 65–102; PULSE 59–93; RESP 6–65; TEMP 36.6–37.2; O2SAT 96–97
[2021-04-09] MEDS: sodium chloride 0.9% 1,000 ML 100 ML IV (01:15)
[2021-04-09 04:03] LABS: Basophils % 0.7 %; Eosinophils # 0.1 10^3/uL (0.0-0.8); Eosinophils % 1.6 %; Hematocrit 34.1 % (37.0-47.0); Hemoglobin 10.4 g/dL (11.5-15.3); Lymphocytes # 1.5 10^3/uL (0.8-4.8); Lymphocytes % 25.7 %; Mean Corpuscular HGB Conc 30.5 g/dL (30.0-36.0); Mean Corpuscular Hemoglobin 24.6 pg (28.0-34.0); Mean Corpuscular Volume 80.6 fL (81-99); Mean Platelet Volume 10.7 fL (7.4-10.4); Monocytes # 0.6 10^3/uL (0.2-0.9); Monocytes % 10.5 %; Neutrophils # 3.49 10^3/uL (1.8-7.7); Neutrophils % 61.3 %; Nucleated Red Blood Cells % 0 %; Platelet Count 250 10^3/cmm (130-400); Red Blood Count 4.23 10^6/uL (4.1-5.3); White Blood Count 5.7 10^3/uL (4.0-10.0)
[2021-04-09 04:37] LABS: Alanine Aminotransferase 14 U/L (0-33); Albumin Level 3.1 g/dL (3.5-5.2); Alkaline Phosphatase 117 IU/L (35-105); Anion Gap 11.7 (5-19); Aspartate Amino Transferase 15 U/L (0-32); Blood Urea Nitrogen 13 mg/dL (8-23); Calcium 8.7 mg/dL (8.5-10.5); Carbon Dioxide 25 mmol/L (22-29); Chloride 109 mmol/L (98-107); Creatinine Clr Calc Pharmacy 58.8712; Globulin 1.8 g/dL (1.3-4.6); Glucose 92 mg/dL (65-115); Magnesium 2.1 mg/dL (1.7-2.3); NT Pro B Type Natriuretic Pept 469 pg/mL (0-125); Osmolality Calculated 294 mOsm/kg (285-295); Phosphorus 3.2 mg/dL (2.5-4.5); Potassium 3.7 mmol/L (3.5-5.1); Sodium 142 mmol/L (136-145); Total Bilirubin 0.4 mg/dL (0.15-1.2); Total Protein 4.9 g/dL (6.6-8.7)
--- NOTE | 2021-04-09 06:00 | USCV_ITS ---
Rosie Martinez Age: 70 Gender: F : 1950 Exam Date: 04/09/2021 08:49 Ordering Phys: Sam Kang MD Technologist: Liliana Galeas [place] [facility] [place]: syncope Risk Factors: Smoker prior Previous Vascular Surgery: cardiac stent no vascular surgery Right Brachial BP: / Left Brachial BP: / Right Left Velocity (cm/s) Spectral Plaque Velocity (cm/s) Spectral Plaque Syst/Diast Broadening Syst/Diast Broadening 66.20/ 8.80 Prox CCA 116.00/ 19.30 95.90/ 15.40 Hetro Mid CCA 88.20 / 15.70 Hetro 63.90/ 11.00 Hetro Distal CCA 70.60 / 17.40 Hetro 81.60/ 14.30 Hetro Prox ICA 74.90 / 14.20 Hetro 53.80/ 12.60 Mid ICA 78.40 / 20.50 51.20/ 11.30 Distal ICA 73.60 / 13.30 94.80 Hetro ECA 131.20 Hetro 0.85 ICA/CCA 0.68 Antegrade Vertebral Antegrade 26.10/ 7.30 cm/s 44.00/ 13.70 cm/s Tri Subclavian Tri 111.4 207.5 0 0 FINDINGS Moderate heterogeneous plaques at the bifurcations and proximal internal carotid arteries bilaterally Tortuous common carotid arteries bilaterally Antegrade flow in the vertebral arteries bilaterally Normal Doppler flow velocities in the external and subclavian arteries on the right side. Elevated velocity in the left subclavian artery CONCLUSIONS Moderate heterogeneous plaques at the bifurcations and proximal internal carotid arteries bilaterally with the Doppler features suggesting less than 50% gnosis. Elevated velocity in the left subclavian artery, suggesting greater than 50% stenosis Compared to the study from 01/01/2021, the subclavian artery stenosis appear to be new. However because of the difference in the technical quality, this cannot be ascertained Dr Karime Solano MD [facility] (Electronically Signed) Final Date: 10 Apr 2021 09:34 S
--- NOTE | 2021-04-09 06:00 | USCV_ITS ---
Michelle Rosie Age: 70 Gender: F : 1950 Exam Date: 04/09/2021 09:15 Ordering Phys: Sam Kang MD Technologist: Liliana Galeas Exam Location: [facility] [place] Indication: syncope BP: 152 / 78 HR: 93 Rhythm: Sinus Technical Quality: Good MEASUREMENTS (Male / Female) Normal Values 2D ECHO LV Diastolic Diameter PLAX 4.6 cm 4.2 - 5.9 / 3.9 - 5.3 cm LV Systolic Diameter PLAX 3.5 cm IVS Diastolic Thickness 1.4 cm 0.6 - 1.0 / 0.6 - 0.9 cm IVS Systolic Thickness 1.4 cm LVPW Diastolic Thickness 1.0 cm 0.6 - 1.0 / 0.6 - 0.9 cm LVPW Systolic Thickness 1.4 cm LVOT Diameter 2.0 cm LV Ejection Fraction 2D Teich 47.9 % LV Ejection Fraction MOD 2C 74.0 % LV Ejection Fraction 2C AL 75.8 % LA Diameter 2.9 cm LA Width 3.2 cm LA Height 4.4 cm RA Width 4.5 cm RA Height 4.2 cm Aorta at Sinotubular Diameter 3.5 cm M-MODE LV Diastolic Diameter MM 5.3 cm 4.2 - 5.9 / 3.9 - 5.3 cm LV Systolic Diameter MM 3.4 cm LV Ejection Fraction MM Teich 66.7 % IVS Diastolic Thickness MM 1.2 cm 0.6 - 1.0 / 0.6 - 0.9 cm IVS Systolic Thickness MM 1.4 cm LVPW Diastolic Thickness MM 1.0 cm 0.6 - 1.0 / 0.6 - 0.9 cm LVPW Systolic Thickness MM 1.7 cm Aortic Annulus Diameter 3.1 cm LA Ao Ratio MM 0.9 MV E Point Septal Separation 0.6 cm DOPPLER AV Peak Velocity 153.0 cm/s LVOT Peak Velocity 111.0 cm/s AV Area Cont Eq vti 2.2 cm squared AV Area Cont Eq pk 2.3 cm squared MV Peak Velocity 137.0 cm/s MV Area PHT 2.9 cm squared Mitral E to A Ratio 0.9 MV E' Velocity 53.0 cm/s Mitral E to MV E' Ratio 9.7 Mitral E to LV E' Lateral Ratio 9.4 Mitral E to LV E' Septal Ratio 10.1 TR Peak Velocity 261.4 cm/s TR Peak Gradient 27.3 mmHg Right Atrial Pressure 3.0 mmHg Pulmonary Artery Systolic Pressu 30.3 mmHg PV Peak Velocity 74.0 cm/s RV Acceleration Time 0.1 s RV Ejection Time 0.3 s RV AcT/ET 0.2 FINDINGS Left Ventricle Normal left ventricular cavity size. Normal left ventricular systolic function. No regional wall motion abnormalities. Left ventricular ejection fraction is estimated at 66 %. Grade I/IV diastolic dysfunction (abnormal relaxation filling pattern), normal to mildly elevated filling pressures. Right Ventricle The right ventricle is normal in size and function. Right Atrium The right atrium is normal in size. Left Atrium The left atrium is normal in size. Mitral Valve Thickened mitral valve. No mitral valve stenosis. Severe mitral valve regurgitation. Aortic Valve Structurally normal aortic valve without significant sclerosis or stenosis. There is no aortic regurgitation. Tricuspid Valve Moderate tricuspid valve regurgitation. Pulmonic Valve Structurally normal pulmonic valve without significant stenosis. There is no pulmonic regurgitation. Pericardium Normal pericardium without effusion. Aorta Normal ascending aorta dimension. CONCLUSIONS 1-Normal left ventricular cavity size. Normal left ventricular systolic function. No regional wall motion abnormalities. Left ventricular ejection fraction is estimated at 66 %. Grade I/IV diastolic dysfunction (abnormal relaxation filling pattern), normal to mildly elevated filling pressures. 2-Structurally normal aortic valve without significant sclerosis or stenosis. There is no aortic regurgitation. 3-Thickened mitral valve. No mitral valve stenosis. Severe mitral valve regurgitation. 4-Moderate tricuspid valve regurgitation. 5-There is no pericardial effusion. 6-Right atrial pressure is around 5 mm of mercury. 7-When compared to the prior echocardiogram dated 22 October 2015 there appeared to be worsening of tricuspid regurgitation from mild to moderate and new severe mitral valve regurgitation now Tamera Castellon MD (Electronically Signed) Final Date: 11 Apr 2021 08:42 S
--- NOTE | 2021-04-09 07:14 | PC.NURSE ---
ortho static blood pressure assessed at 0530 laying the pressure was 197/87 and heartrate was 78. when standing the patient stated that the blood pressure cuff was hurting her arm and at was at this very moment that the patient's hr jumped to 93 and blood pressure jumped to 178/96. The day shift nurse was notified of this and asked to reassess with her morning rounds to verify accuracy of these findings to determine if it was truly a positive orthostatic or related to the patient pain.
[2021-04-09] MEDS: aspirin 81 mg EC Tablet PO (08:41)
[2021-04-09] MEDS: atorvastatin 40 mg Tablet PO (08:41)
[2021-04-09] MEDS: isosorbide mononitrate ER 30 mg Tablet PO (15:10)
--- NOTE | 2021-04-09 16:04 | PC.OT ---
OT note: Pt observed to independently complete toileting and transfer from bed to toilet and back. Pt reported she feels she can handle her ADLs at this time. No OT necessary at this time.
[2021-04-09] MEDS: enoxaparin 40 mg/0.4 mL Syringe SUBCUT (18:33)
[2021-04-09] MEDS: losartan 50 mg Tablet 25 MG PO (18:34)
--- NOTE | 2021-04-09 19:33 | PM.PN ---
Subjective Subjective: Interval history: Chart reviewed. Patient still is not sure what happened when she passed out yesterday. Does report that she has had previous fluctuations in blood pressure.Review of chart records indicated that changes to her antihypertensives were made in January. She denies recent changes to her medications. Antihypertensives including isosorbide, losartan and carvedilol were held upon admission due to syncope yesterday. Has had increasing blood pressures since that time. Has been up out of bed. No bradycardia noted. Medications: Reviewed: Yes Medication Review Details: Isosorbide and ARB resumed earlier today, remains off of carvedilol Vitals/I&O/Wt Last Vital Signs Temp 97.8 F 04/09/21 16:00 Pulse 77 04/09/21 16:00 Resp 65 H 04/09/21 14:41 BP 180/84 04/09/21 18:34 Pulse Ox 96 04/09/21 16:00 04/09/21 04/09/21 04/09/21 06:59 14:59 22:59 Intake Total 478 / 478 Output Total 0 / 0 Balance 0 / 2240 478 / 478 Weight last 48 hrs Weight 77.111 kg Physical Exam Narrative: EXAM NARRATIVE: Constitutional: Awake, alert HEENT: Extraocular movements intact, moist mucous membranes Respiratory: Clear to auscultation bilaterally Cardiovascular: Regular rhythm, 2/6 systolic murmur noted Abdomen: Soft, nontender, positive bowel sounds Extremities: No pitting edema Neuro: Speech clear, handgrip equal, normal gait, no dizziness with position change Other: Skin is dry Data : 04/09/21 03:35 04/09/21 03:35 Other data: Labs: 04/08/21 04/09/21 20:20 03:35 Troponin T Hi Sens 6Hr 7.75 NT-Pro-B Natriuret Pep 469 H Radiological studies: Has had chest x-ray, CT of the cervical spine, CT of the head, CTA chest abdomen and pelvis, x-rays of the shoulder and x-rays of the hip/pelvis. Echocardiogram and carotid ultrasound are still pending. A&P Assessment and plan (1) Syncope: Status: Acute Qualifiers: Syncope type: unspecified Qualified Code(s): R55 - Syncope and collapse (2) Hypertension, essential: Status: Chronic (3) Coronary artery disease: Status: Chronic Qualifiers: Coronary Disease-Associated Artery/Lesion type: [place] artery [place] vs. transplanted heart: [place] heart Associated angina: without angina Qualified Code(s): I25.10 - Atherosclerotic heart disease of [place] coronary artery without angina pectoris (4) Hyperlipidemia: Status: Chronic Qualifiers: Hyperlipidemia type: unspecified Qualified Code(s): E78.5 - Hyperlipidemia, unspecified (5) Peripheral vascular disease: Status: Chronic Additional A&P Information Episode of vomiting associated with syncope Multiple abnormalities on CT of the abdomen and pelvis and other studies including the following: Indeterminate left thyroid nodule, nodular thickening of the esophagus, infrarenal abdominal aortic aneurysm and area of irregular plaque in the descending thoracic aorta not consistent with dissection as per review by ER physician, radiology and Dr. Rodrigez multiple narrow or occluded vessels as described, including left renal artery, and a nonobstructive left renal stone Resume home antihypertensive agents although will decrease carvedilol Monitor response to this addition and adjust antihypertensives accordingly Follow-up pending carotid duplex and echocardiogram PT and OT have evaluated, continue ambulation with assistance Continue monitoring for any indication of arrhythmias Will need outpatient follow-up of indeterminate left thyroid nodule Follow-up with primary care provider for consideration of need for EGD Will need follow-up after discharge to monitor blood pressures and other vascular abnormalities closely Supportive care otherwise Pending/ordered tests to follow: Echocardiogram and carotid ultrasound are still pending Lines/tubes: Peripheral IVs only DVT prophylaxis: Lovenox and SCDs Plans, findings and concerns discussed with patient and they were given an opportunity to ask questions Anticipated Disposition: Home with Code Status: Full code Attestations Medical Necessity Statement*: Patient stay will exceed 2 midnights I have changed her to inpatient. She now has increasing blood pressures after treatment for orthostasis and medications have been adjusted. Other plans as noted. Coding Level of Care Code Acute Digital Forensics Examiner for Chg Fwd Diagnoses Syncope R55 Syncope type: unspecified Hypertension, essential I10 Coronary artery disease I25.10 Coronary Disease-Associated Artery/Lesion type: [place] artery [place] vs. transplanted heart: [place] heart Associated angina: without angina Hyperlipidemia E78.5 Hyperlipidemia type: unspecified Peripheral vascular disease I73.9
[2021-04-09] MEDS: carvedilol 25 mg Tablet PO (21:11)
[2021-04-09] MEDS: zolpidem 5 mg Tablet PO (21:11)
--- NOTE | 2021-04-09 21:20 | PC.NURSE ---
Spoke with Dr. Jeffers regarding this patient's hypertension. Order received for initiation of mynor vidal.
[2021-04-10] VITALS (10 sets, daily range): BP systolic 152–203; BP diastolic 57–131; PULSE 69–83; RESP 15–26; TEMP 36.6–36.7; O2SAT 94–96
[2021-04-10 04:49] LABS: Basophils % 0.4 %; Eosinophils # 0.1 10^3/uL (0.0-0.8); Eosinophils % 1.3 %; Hematocrit 34.1 % (37.0-47.0); Hemoglobin 10.5 g/dL (11.5-15.3); Lymphocytes # 1.4 10^3/uL (0.8-4.8); Lymphocytes % 25.1 %; Mean Corpuscular HGB Conc 30.8 g/dL (30.0-36.0); Mean Corpuscular Hemoglobin 24.6 pg (28.0-34.0); Mean Corpuscular Volume 79.9 fL (81-99); Mean Platelet Volume 10.6 fL (7.4-10.4); Monocytes # 0.5 10^3/uL (0.2-0.9); Monocytes % 8.4 %; Neutrophils # 3.47 10^3/uL (1.8-7.7); Neutrophils % 64.4 %; Nucleated Red Blood Cells % 0 %; Platelet Count 232 10^3/cmm (130-400); Red Blood Count 4.27 10^6/uL (4.1-5.3); White Blood Count 5.4 10^3/uL (4.0-10.0)
[2021-04-10 05:00] LABS: Anion Gap 10.7 (5-19); Blood Urea Nitrogen 10 mg/dL (8-23); Carbon Dioxide 26 mmol/L (22-29); Chloride 107 mmol/L (98-107); Creatinine Clr Calc Pharmacy 66.2301; Glucose 95 mg/dL (65-115); Osmolality Calculated 289 mOsm/kg (285-295); Potassium 3.7 mmol/L (3.5-5.1); Sodium 140 mmol/L (136-145)
--- NOTE | 2021-04-10 06:27 | PC.NURSE ---
Upon entering the patient's room to initiate the Cardene drip the patient was found to have a blood pressure of 175/79. Dr. Jeffers was notified and order received to not initiate the drip and to continue to evaluate the pressure frequently.
[2021-04-10] MEDS: isosorbide mononitrate ER 30 mg Tablet PO (08:19)
[2021-04-10] MEDS: aspirin 81 mg EC Tablet PO (08:19)
[2021-04-10] MEDS: atorvastatin 40 mg Tablet PO (08:19)
[2021-04-10] MEDS: carvedilol 25 mg Tablet PO (08:20)
[2021-04-10] MEDS: losartan 50 mg Tablet 25 MG PO (08:20)
--- NOTE | 2021-04-10 11:20 | P.DS_ITS ---
Discharge Providers Date of Admission: 04/09/21 18:14 Date of Discharge: April 10, 2021 Attending Provider at Admission: Sam Kang MD Attending Provider at Discharge: Lenora Dillard MD Primary Care Provider: Silvia Peng MD Diagnoses at Discharge Discharge Diagnosis (1) Syncope: Status: Acute Qualifiers: Syncope type: unspecified Qualified Code(s): R55 - Syncope and collapse (2) Hypertension, essential: Status: Chronic (3) Coronary artery disease: Status: Chronic Qualifiers: Associated angina: without angina Coronary Disease-Associated Artery/Lesion type: [place] artery [place] vs. transplanted heart: [place] heart Qualified Code(s): I25.10 - Atherosclerotic heart disease of [place] coronary artery without angina pectoris (4) Hyperlipidemia: Status: Chronic Qualifiers: Hyperlipidemia type: unspecified Qualified Code(s): E78.5 - Hyperlipidemia, unspecified (5) Peripheral vascular disease: Status: Chronic Permanent problem details: multiple vessels (6) Abdominal aortic aneurysm (AAA) 3.0 cm to 5.0 cm in diameter in female: Status: Chronic (7) Thyroid nodule: Status: Acute Permanent problem details: incidental indeterminant finding on CT 03/2021 (8) Esophageal thickening: Status: Acute Permanent problem details: incidental finding on CT 03/2021 Reason for Visit Reason for Visit: SYNCOPE Hospital Course Hospital Course Mrs. Martinez was admitted after a syncopal episode at home. No recollection of preceding symptoms. She had gotten up to walk from one room to the other took a step and went down. She evidently had some loss of consciousness for a while. She was not responding appropriately to her for some time. She had extensive work-up in the emergency room. It was initially suspected that her medications had been recently adjusted but doses were not changed at clinic vi sit last week, they have been changed back in January. She was noted to be orthostatic. Her antihypertensives were held and she was given some fluids. She had no further episodes with ambulation during the hospital stay. Ultimately she was put back on her antihypertensives as previously prescribed. She has quite labile blood pressures chronically. On the CT chest abdomen and pelvis that she had she was noted to have renal artery stenosis on the left in addition to multiple other vascular abnormalities. Please see details of CTA. There was some concern about possibility of dissection but in the emergency room imaging was discussed with radiology as well as cardiovascular surgery by the ER physician. Patient did not complain of any abdominal pain. She did not have any complaints of chest pain. Echocardiogram was done but is still pending read at the time of discharge. No arrhythmias were noted during the hospital stay. Recommend that she keep a blood pressure log as well as though slow with position changes. We will have her follow-up with Louisa Davila next week for reevaluation. Also recommend follow-up of carotid ultrasound indeterminate findings and pending echocardiogram read. Consideration might be given to outpatient Holter or event monitor if she has recurrent episodes of syncope but currently seems to be due to orthostasis,, which is not surprising with her vascular abnormalities and medications and chronic hypertension which is difficult to control. Incidentally identified was thyroid nodule, indeterminate. Will order a thyroid ultrasound outpatient with follow-up to primary care provider for this. She had some thickening noted in the esophagus. Currently had like for cardiac and vascular issues to be clear before considering invasive procedure such as an EGD. She denies increasing reflux symptoms or abdominal pain. Further evaluation can be determined as per PCP. At the time of discharge, patient is awake and alert. She has ambulated without any syncope or presyncopal symptoms. No chest pain or palpitations. Lungs are clear. She has a regular rhythm. She is felt stable for discharge home with outpatient follow-up. Findings both known and incidental identified on multiple imaging studies done during this hospital stay were discussed with patient as well as plans for outpatient evaluation. She was given an opportunity to ask questions. Discharge Data Data Completed and Pending: Completed Studies During Hospitalization Category Date Time Status CT angio chest ab domen pelvis Stat Cat Scan 04/08/21 14:[address] cervical spin wo con* [id number] Urge nt Cat Scan 04/08/21 14:[address] head wo con* 7 0450 Stat Cat Scan 04/08/21 14:14 Completed XR chest 1V aishwarya ble [id number] Stat Exams 04/08/21 14:06 Completed XR hip BI 3-4V wo /w pel [id number] Stat Exams 04/08/21 17:47 Completed XR shoulder LT mi n 2V* [id number] Stat Exams 04/08/21 15:12 Completed CV carotid duplex BI* [id number] Routine Ultrasound 04/09/21 06:00 Completed Pending at discharge Category Date Time Status CV echo complete* [id number] Routine Ultrasound 04/09/21 06:00 Taken Laboratory Last Values WBC 5.4 10^3/uL (4.0- 10.0) 04/10/21 04:18 RBC 4.27 10^6/uL (4.1 -5.3) 04/10/21 04:18 Hgb 10.5 g/dL (11.5-1 5.3) L 04/10/21 04:18 Hct 34.1 % (37.0-47.0 ) L 04/10/21 04:18 MCV 79.9 fL (81-99) L 04/10/21 04:18 MCH 24.6 pg (28.0-34. 0) L 04/10/21 04:18 MCHC 30.8 g/dL (30.0-3 6.0) 04/10/21 04:18 RDW 17.0 % (12.1-15.1 ) H 04/10/21 04:18 Plt Count 232 10^3/cmm (130 -400) 04/10/21 04:18 MPV 10.6 fL (7.4-10.4 ) H 04/10/21 04:18 Neut % (Auto) 64.4 % 04/10/21 04:18 Lymph % (Auto) 25.1 % 04/10/21 04:18 [place] % (Auto) 8.4 % 04/10/21 04:18 Eos % (Auto) 1.3 % 04/10/21 04:18 Baso % (Auto) 0.4 % 04/10/21 04:18 Neut # (Auto) 3.47 10^3/uL (1.8 -7.7) 04/10/21 04:18 Lymph # (Auto) 1.4 10^3/uL (0.8- 4.8) 04/10/21 04:18 [place] # (Auto) 0.5 10^3/uL (0.2- 0.9) 04/10/21 04:18 Eos # (Auto) 0.1 10^3/uL (0.0- 0.8) 04/10/21 04:18 Baso # (Auto) 0.0 10^3/uL (0.0- 0.1) 04/10/21 04:18 Nucleated RBC % (a uto) 0 % 04/10/21 04:18 Nucleated RBCs # 0.0 /100WBC 04/10/21 04:18 Sodium 140 mmol/L (136-1 45) 04/10/21 04:18 Potassium 3.7 mmol/L (3.5-5 .1) 04/10/21 04:18 Chloride 107 mmol/L (98-10 7) 04/10/21 04:18 Carbon Dioxide 26 mmol/L (22-29) 04/10/21 04:18 Anion Gap 10.7 (5-19) 04/10/21 04:18 BUN 10 mg/dL (8-23) 04/10/21 04:18 Creatinine 0.8 mg/dL (0.5-0. 9) 04/10/21 04:18 GFR Calculation Not Reportable 04/10/21 04:18 Glucose 95 mg/dL (65-115) 04/10/21 04:18 Calculated Osmolal ity 289 mOsm/kg (285- 295) 04/10/21 04:18 Calcium 9.0 mg/dL (8.5-10 .5) 04/10/21 04:18 Phosphorus 3.2 mg/dL (2.5-4. 5) 04/09/21 03:35 Magnesium 2.1 mg/dL (1.7-2. 3) 04/09/21 03:35 Total Bilirubin 0.4 mg/dL (0.15-1 .2) 04/09/21 03:35 AST 15 U/L (0-32) 04/09/21 03:35 ALT 14 U/L (0-33) 04/09/21 03:35 Alkaline Phosphata se 117 IU/L (35-105) H 04/09/21 03:35 Troponin T Baselin e 11 ng/L (0-10) H 04/08/21 14:20 Troponin T 120 Min [place] 10.15 ng/L (0-10) H 04/08/21 16:50 Delta Troponin T -0.85 ABS# (0-10) L 04/08/21 16:50 Troponin T Hi Sens 6Hr 7.75 ng/L (0-10) 04/08/21 20:20 Troponin T Hi Sens 6Hr Delta -3.25 ng/L (0-12) L 04/08/21 20:20 NT-Pro-B Natriuret Pep 469 pg/mL (0-125) H 04/09/21 03:35 Total Protein 4.9 g/dL (6.6-8.7 ) L D 04/09/21 03:35 Albumin 3.1 g/dL (3.5-5.2 ) L 04/09/21 03:35 Globulin 1.8 g/dL (1.3-4.6 ) 04/09/21 03:35 TSH 0.60 uIU/mL (0.27 -4.20) 04/09/21 03:35 Urine Color Straw (Yellow) 04/08/21 15:07 Urine Appearance Clear (CLEAR) 04/08/21 15:07 Urine pH 7 (5-7) 04/08/21 15:07 Ur Specific Gravit y 1.010 (1.005-1.0 30) 04/08/21 15:07 Urine Protein 1+ (Negative) H 04/08/21 15:07 Urine Glucose (UA) Norm (Normal) 04/08/21 15:07 Urine Ketones Negative (Negati ve) 04/08/21 15:07 Urine Blood Neg (Negative) 04/08/21 15:07 Urine Nitrate Negative (Negati ve) 04/08/21 15:07 Urine Bilirubin Neg (Negative) 04/08/21 15:07 Urine Urobilinogen Norm mg/dL (Negat darrian) 04/08/21 15:07 Ur Leukocyte Renée ase Negative (Negati ve) 04/08/21 15:07 Urine RBC None /hpf (0-2) 04/08/21 15:07 Urine WBC None /hpf (0-5) 04/08/21 15:07 Ur Squamous Epith Cells Rare /hpf (0-5) 04/08/21 15:07 Amorphous Sediment Not Reportable 04/08/21 15:07 Urine Bacteria Trace /hpf (NONE) 04/08/21 15:07 Hyaline Casts Rare /lpf 04/08/21 15:07 Urine Mucus 1+ /hpf 04/08/21 15:07 Imaging^: CTA Chest/Abd/Pelvis: Radiologist's impression: FINDINGS: Pulmonary arteries: No pulmonary embolus is seen. Aorta: No thoracic aortic aneurysm. There is irregular atheromatous plaque in the descending thoracic aorta with a focal intimal flap (series 6, image 61) and a small penetrating ulcer (series 6, image 99). There is no evidence of propagating dissection. Thyroid: There is an indeterminate left thyroid nodule that measures 2.4 cm. Lungs: There is mild scarring in the lung apices. No pulmonary consolidation. A pulmonary micronodule in the left lower lobe is unchanged and measures 4.6 mm (image 66). Pleural spaces: No pleural effusion. No pneumothorax. Heart: Coronary arterial calcifications are noted. No pericardial effusion. Mediastinal space: There is subtle nodular wall thickening of the esophagus (series 6, image 87) that appears increased from prior. This could represent an early esophageal mass. Consider endoscopy. No hiatal hernia. Lymph nodes: No significant mediastinal lymphadenopathy. Bones/joints: No acute fracture is seen. IMPRESSION: 1. No thoracic aortic aneurysm. There is irregular atheromatous plaque in the descending thoracic aorta with a focal intimal flap and a small penetrating ulcer. There is no evidence of propagating dissection or rupture. 2. No pulmonary embolus. 3. There is subtle nodular wall thickening of the esophagus that appears increased from prior. This could represent an early esophageal mass. Consider endoscopy. 4. Coronary artery disease. 5. Solid pulmonary micronodule measuring 4.6 mm. Unchanged from December 2020. As per Fleischner Society 2017 guidelines for follow-up and management of pulmonary nodules: For patients at low risk (minimal or absent history of smoking and of other known risk factors), no routine follow-up. For patient at high risk (history of smoking or of other known risk factors), recommend optional CT at 12 months. shoulder xray: Radiologist's impression: LEFT FINDINGS: No fracture, dislocation or subluxation. No periosteal reaction or supsicious bone lesion. There is mild primary osteoarthritis at the acromioclavicular joint. XR/XR shoulder LT min 2V* [id number] IMPRESSION: 1. No acute fracture. 2. 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 hip/pelvis xray: Radiologist's impression: FINDINGS: Bones/joints: Unremarkable. No acute fracture. Soft tissues: Unremarkable. XR/XR hip BI 2V wo/w pel [id number] IMPRESSION: No acute findings carotid US: Radiologist's impression: FINDINGS Moderate heterogeneous plaques at the bifurcations and proximal internal carotid arteries bilaterally Tortuous common carotid arteries bilaterally Antegrade flow in the vertebral arteries bilaterally Normal Doppler flow velocities in the external and subclavian arteries on the right side. Elevated velocity in the left subclavian artery CONCLUSIONS Moderate heterogeneous plaques at the bifurcations and proximal internal carotid arteries bilaterally with the Doppler features suggesting less than 50% gnosis. Elevated velocity in the left subclavian artery, suggesting greater than 50% stenosis Compared to the study from 01/01/2021, the subclavian artery stenosis appear to be new. However because of the difference in the technical quality, this cannot be ascertained CT Head: Radiologist's impression: FINDINGS: Brain: No acute intracranial hemorrhage. No mass, mass effect or midline shift. There is no evidence of acute large vessel infarct. There is moderate patchy subcortical and periventricular hypodensity, most commonly associated with small vessel ischemic disease of indeterminate age. The posterior fossa is grossly unremarkable; however, it is partially obscurred by beam hardening artifact. Cerebral ventricles: The ventricles are prominent, compatible with mild parenchymal volume loss. Bones/joints: No acute fracture is seen. Paranasal sinuses: The visualized paranasal sinuses are clear. Mastoid air cells: No mastoid effusion. Orbital cavity: The visualized orbits are unremarkable. Submandibular/Parotid glands: The left parotid gland appears somewhat atrophic. CT/CT head wo con* [id number] IMPRESSION: 1. Mild parenchymal volume loss. 2. Moderate presumed small vessel ischemic disease of indeterminate age; this appears worsened from prior. 3. No acute intracranial abnormality. CT cervical spine: Radiologist's impression: FINDINGS: There are grade 1 anterolisthesis of C3 and C4. There has been prior ventral cervical fusion extending from C5-C6. No prevertebral soft tissue swelling is seen. Mild degenerative disc disease. No acute fracture is identified. The atlantoaxial interval and craniocervical junction are maintained. Small, scattered cervical lymph nodes are noted. There is scarring in the lung apices. An indeterminate left thyroid nodule measures 1.[address]/CT cervical spin wo con* [id number] IMPRESSION: 1. No acute cervical fracture. 2. Mild degenerative disc disease. 3. Indeterminate left thyroid nodule. Recommend nonemergent thyroid ultrasound to better characterize. CXR: Radiologist's impression: FINDINGS: Lungs: No pulmonary consolidation. Pleural spaces: No pleural effusion. No pneumothorax. Heart/Mediastinum: The cardiac silhouette is unchanged. No gross evidence of pneumomediastinum. Vasculature: There is tortuosity of the descending thoracic aorta. Bones/joints: Cervical hardware is noted. No gross fracture. XR/XR chest 1V portable [id number] IMPRESSION: Cardiomegaly with tortuous aorta; similar to prior. Vitals: Last Vital Signs Temp 98.0 F 04/10/21 07:41 Pulse 78 04/10/21 07:41 Resp 20 H 04/10/21 07:41 BP 165/70 04/10/21 08:20 Pulse Ox 95 04/10/21 07:41 Discharge Plan Discharge Patient Disposition: Home Condition: Stable Prescriptions: Continued valsartan 80 mg tablet 80 mg PO BID Qty: 60 RF: 2 atorvastatin 40 mg tablet 40 mg PO DAILY RF: 0 carvedilol 25 mg tablet 37.5 mg PO BID Qty: 270 RF: 3 nitroglycerin 0.4 mg tablet, sublingual 0.4 mg SUBLINGUAL Q5M PRN (Reason: Chest Pain) Qty: 25 RF: 3 Aspir-81 81 mg Tablet,Delayed Release (Dr/Ec) 81 mg PO DAILY RF: 0 Vitamin D3 1 cap PO DAILY RF: 0 melatonin 1 tab PO BEDTIME RF: 0 isosorbide mononitrate 30 mg tablet extended release 24 hr 30 mg PO DAILY RF: 0 Discharge Orders: Discharge Order (Routine); Ordered 04/10/21 Ordered By: Lenora Dillard Other Ambulatory Orders: [place] thyroid [id number] (Routine) Timeframe: 2 Weeks Facility: [facility] - Location: Radiology [facility] Ordered By: Lenora Dillard Referrals: Silvia Peng MD [Primary Care Provider] - 2 weeks (hospital f/u after syncope episdoe, f/u thyroid nodule (thyroid US ordered), f/u EGD thickening and other issues as per DC summary dated 04/10/21) Louisa Davila FNP [Nurse Practitioner] - 1 week (blood pressure check and follow up of echo and carotid US done in hospital; had syncopal episode) Discharge Diet: Usual diet Discharge Activity: Increase activity as tolerated Patient Instructions: Syncope (DC), Opioid Safety Activity Restrictions/Additional Instructions: You presented to the hospital after a syncopal episode. You were found to have orthostatic hypotension which is where your blood pressure drops when rising from a seated to standing position. He was originally thought that your usual antihypertensives including carvedilol, isosorbide and valsartan had been increased recently but they were actually adjusted back in January. Medications were restarted and you did not have continued findings of orthostasis on repeat evaluations. Current recommendation is to continue usual medicines and practice slow position changes to decrease risk of recurrent drop in blood pressure with rising from seated position (orthostasis). Take medications as prescribed Monitor blood pressure and take log with you to follow up appointments CT imaging this hospital stay revealed several abnormalities which will need to be followed: --Thyroid nodule for which thyroid ultrasound ordered --Thickening of distal esophagus noted on CT imaging for which EGD might be considered depending on how you do in regards to blood pressure and syncope --Multiple vascular abnormalities which are felt to be chronic including left renal artery stenosis, abdominal aortic aneurysm with plaque but no dissection among other findings --Non-obstructing left renal stone Echocardiogram and carotid ultrasound results were pending at discharge Plan is for follow-up with Louisa Davila next week to recheck blood pressure and follow-up these pending studies. Additionally have ordered for follow-up to Dr. Peng for other findings as described. Discharge Attestations Time Spent in Discharge Care*: greater than 30 min Specific Discharge Activities: educating patient, discussing with continuous pillowcase cutter/social workers/dc planners, documenting/other paperwork and evaluating patient/reviewing data Status at Discharge: Cognitive status at discharge: cognitively intact , Behavioral status at discharge: cooperative , Functional status at discharge: independent ambulation Overall status at discharge: patient is back to baseline Quality Metrics Clinical Quality Measures During this hospital stay, did patient experience: None Coding Level of Care Code Acute g DC note Diagnoses Syncope R55 Syncope type: unspecified Hypertension, essential I10 Coronary artery disease I25.10 Associated angina: without angina Coronary Disease-Associated Artery/Lesion type: [place] artery [place] vs. transplanted heart: [place] heart Hyperlipidemia E78.5 Hyperlipidemia type: unspecified Peripheral vascular disease I73.9 Abdominal aortic aneurysm (AAA) 3.0 cm to 5.0 cm in diameter in female I71.4 Thyroid nodule E04.1 Esophageal thickening K22.8
--- NOTE | 2021-04-10 12:13 | PC.CHAP ---
Pastoral Care Encounter/Spiritual Assessment Type of Contact [] Declined field traffic investigator visit [] Patient/Family/Request visit [] Outpatient visit [] Follow-up visit [] Physician referral [] Code/Alert [x] Routine visit [] Staff referral [] Actively dying [] Patient sleeping [] Family support [] [] Out of room [] Palliative care [] [] Receiving care in room [] Pre-surgical visit [] Trauma [] Long length of stay [] ICU visit [] Other: Relational/Emotional Strength [] Patient feels connected with others/family/visitors/staff [] Distress [] Loneliness/isolation [] Abandonment Spirituality of Patient [] Person of Kassi [] Attends Christian of their Kassi [] Believes in Prayer [] Reads Bible or Quaker materials [] There are Spiritual issues to be addressed Solar Project Coordination Specialist Interventions [] Prayer [] Active listening [] Non-anxious presence [] Spiritual/emotional support [] Crisis/trauma care [] Spiritual counseling [] Bereavement support [] Provided bereavement packet [] Provided Bible/devotional materials [] Provided toy/stuffed animal, coloring book to patient or family member [] Provided Communion [] Anointing/[place] [] Salvation [] Completed spiritual assessment [] Other: Impact on Illness or Injury [] Angry [] Fearful [] Anxious [] Often cries [] Exhaustion [] Unable to work [] Unable to attend sikh [] Unable to walk/stand [] Unable to read [] Unable to drive [] Unable to eat/drink [] Unable to sleep [] Unable to be with family [] Patient intubated [] Other: Summary I asked if I could pray for her, she declined. Sort of gave the impression she did her own praying. Seemed congenial. Time spent with patient 3 minutes.
== END 2021-04-10 14:36 | disposition home or self-care (01) | DRG 312 ==
LOC: ER 14:40 → CSU 18:08
PROVIDERS: Admitting Provider Family Medicine; Emergency Provider Emergency Medicine; PCP Family Medicine; Visit Provider Hospitalist
DX: I95.1 Orthostatic hypotension (principal); G93.5 Compression of brain; I71.4 Abdominal aortic aneurysm, without rupture; I72.3 Aneurysm of iliac artery; I25.10 Atherosclerotic heart disease of native coronary artery without angina pectoris; Z95.5 Presence of coronary angioplasty implant and graft; E78.5 Hyperlipidemia, unspecified; I10 Essential (primary) hypertension; G47.33 Obstructive sleep apnea (adult) (pediatric); I73.9 Peripheral vascular disease, unspecified; Z96.651 Presence of right artificial knee joint; Z98.1 Arthrodesis status; Z87.891 Personal history of nicotine dependence; W18.30XA Fall on same level, unspecified, initial encounter; R40.0 Somnolence; M17.12 Unilateral primary osteoarthritis, left knee; E04.1 Nontoxic single thyroid nodule; K22.8 Other specified diseases of esophagus; Z79.82 Long term (current) use of aspirin; Z85.828 Personal history of other malignant neoplasm of skin; I08.1 Rheumatic disorders of both mitral and tricuspid valves; N20.0 Calculus of kidney; R59.0 Localized enlarged lymph nodes
CPT/HCPCS: 36415; 51701; 70450; 71045; 71275; 72125; 73030; 73521; 73522; 74174; 80048; 80053; 81001; 83735; 83880; 84100; 84443; 84484; 85025; 93005; 93306; 93880; 96360; 96361; 96372; 97161; 99285; 99291; G0378; J1650; J7030; Q9967

== ENCOUNTER 2021-04-14 14:03 | Emergency (ER) | payer MEDICARE, OTHER, SELFPAY ==
[2021-04-14 14:03] VITALS: PULSE 69; RESP 17; TEMP 36.4; O2SAT 94; BMI 28.3
--- NOTE | 2021-04-14 14:14 | W.ED.WEAKNES ---
HPI - Weakness General: Chief complaint: Weakness Stated complaint: WEAKNESS Time Seen by Provider: 04/14/21 14:08 History of Present Illness: HPI Narrative: 70-year-old female presents to the emergency room complaining of weakness and dizziness. She was seen earlier this week admitted to the hospitalist given IV fluids and medications were adjusted and she was discharged home days later.. She states she fell at home. She denies striking her head she denies loss of consciousness. She is not any nausea vomiting or diarrhea. She states her appetite has been decreased. MD Complaint: generalized weakness Onset (ago): day(s) Duration: constant Location: generalized Severity: moderate Relieving factors: none Exacerbating factors: none Associated symptoms: Denies chest pain, chills, confusion, melena, decreased appetite, diaphoresis, dysuria, easy bruising, fever(s), headache(s), myalgias, nausea, rash, short of breath, syncope or vomiting Review of Systems Const: Denies: fever(s), chills or diaphoresis ENMT: Denies: throat pain, ear or mastoid pain, nasal discharge or nasal congestion Card: Denies: chest pain or syncope Resp: Denies: dyspnea, productive cough or non-productive cough GI: Denies: nausea, vomiting or melena : Denies: dysuria Skin/Breast: Denies: rash or pruritus Neuro: Denies: headache(s) or confusion Shayan/Lymph: Denies: easy bruising [facility] ED PFSH: Medical History Abdominal aortic aneurysm (AAA) 3.0 cm to 5.0 cm in diameter in female 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 Hazel, 2013 S/P cataract extraction and insertion of intraocular lens bilateral S/P cervical spinal fusion ACDFF Dr. Dawn 12/07/2015 S/P right coronary artery (RCA) stent placement (~05/2019) Family History Other Cancer Rheumatoid arthritis Denies family history of Chronic kidney disease (CKD) Systemic lupus erythematosus (SLE) in adult Lung disease Hypertension Social History Smoking and tobacco status: former smoker Alcohol intake: current Alcohol intake frequency: holidays/special occasions only History of recent travel: No (12/10/19) Physical Exam Const: COMMON NORMALS: no acute distress GENERAL APPEARANCE: cooperative and comfortable ORIENTATION/CONSCIOUSNESS: Yes awake, Yes oriented to person, Yes oriented to place and Yes oriented to time HENMT: COMMON NORMALS: normocephalic, atraumatic and hearing grossly normal bilaterally HEAD & SCALP: normocephalic and atraumatic Neck/C-Spine: COMMON NORMALS: no JVD Lymph: LYMPHATIC: no lymphadenopathy noted and no lymphedema noted Resp: COMMON NORMALS: normal respiratory effort, No retractions, No use of accessory muscles and clear to auscultation bilaterally AUSCULTATION: clear to auscultation bilaterally Cardio: COMMON NORMALS: no JVD, regular rate, regular rhythm and No murmurs present (Cardio) RATE: regular rate RHYTHM: regular rhythm GI: COMMON NORMALS: Soft to palpation and No hepatosplenomegaly present AUSCULTATION: Yes normoactive bowel sounds PALPATION: Yes Soft to palpation, No Tenderness to palpation present (GI), No Guarding due to palpation present (GI) and Yes No hepatosplenomegaly present Extremity: COMMON NORMALS: normal to inspection, capillary refill normal, no clubbing, cyanosis or edema, no calf tenderness and no pedal edema Neuro: SENSORIUM/ORIENTATION: Yes oriented to person, Yes oriented to place and Yes oriented to time Skin: COMMON NORMALS: no rashes or lesions noted GENERAL SKIN EXAM: no rashes or lesions noted Course Vital Signs: Vital signs: Vital Signs Temperature 97.5 F L 04/14/21 14:03 Pulse Rate 71 04/14/21 18:51 Respiratory Rate 16 04/14/21 18:51 Blood Pressure 122/65 04/14/21 18:51 Pulse Oximetry 97 04/14/21 18:51 MDM - Weakness MDM Narrative: Medical decision making narrative: Patient feeling better after fluids I discussed with Dr. Murguia who heparin be on for the hospitalist service today with seen the patient earlier in the week. Savage and decrease her carvedilol to 25 twice daily. Add Cipro for the bladder infection. Discussed the patient like her to follow-up with cardiology later this week to reevaluate her blood pressure if she continues to have hypotension could also cut down her valsartan. Lab Data: Labs: Lab Results 04/14/21 04/14/21 04/14/21 Range/Units 14:38 14:38 15:34 WBC 7.6 (4.0-10.0) 10^3/ uL RBC 4.34 (4.1-5.3) 10^6/u L Hgb 10.9 L (11.5-15.3) g/dL Hct 35.2 L (37.0-47.0) % MCV 81.1 (81-99) fL MCH 25.1 L (28.0-34.0) pg MCHC 31.0 (30.0-36.0) g/dL RDW 17.4 H (12.1-15.1) % Plt Count 270 (130-400) 10^3/c mm MPV 10.4 (7.4-10.4) fL Neut % (Auto) 73.6 % Lymph % (Auto) 15.1 % [place] % (Auto) 8.9 % Eos % (Auto) 1.3 % Baso % (Auto) 0.7 % Neut # (Auto) 5.58 (1.8-7.7) 10^3/u L Lymph # (Auto) 1.1 (0.8-4.8) 10^3/u L [place] # (Auto) 0.7 (0.2-0.9) 10^3/u L Eos # (Auto) 0.1 (0.0-0.8) 10^3/u L Baso # (Auto) 0.1 (0.0-0.1) 10^3/u L Nucleated RBC % (a uto) 0 % Nucleated RBCs # 0.0 /100WBC Sodium 141 (136-145) mmol/L Potassium 3.9 (3.5-5.1) mmol/L Chloride 106 (98-107) mmol/L Carbon Dioxide 26 (22-29) mmol/L Anion Gap 12.9 (5-19) BUN 21 (8-23) mg/dL Creatinine 1.1 H (0.5-0.9) mg/dL GFR Calculation Not Reportable Glucose 111 (65-115) mg/dL Calculated Osmolal ity 296 H (285-295) mOsm/k g Calcium 8.9 (8.5-10.5) mg/dL Total Bilirubin 0.5 (0.15-1.2) mg/dL AST 15 (0-32) U/L ALT 13 (0-33) U/L Alkaline Phosphata se 131 H (35-105) IU/L Total Protein 5.7 L (6.6-8.7) g/dL Albumin 3.6 (3.5-5.2) g/dL Globulin 2.1 (1.3-4.6) g/dL Urine Color Straw (Yellow) Urine Appearance Sl hazy (CLEAR) Urine pH 7 (5-7) Ur Specific Gravit y 1.005 (1.005-1.030) Urine Protein Neg (Negative) Urine Glucose (UA) Norm (Normal) Urine Ketones Negative (Negative) Urine Blood Neg (Negative) Urine Nitrate Negative (Negative) Urine Bilirubin Neg (Negative) Urine Urobilinogen Norm (Negative) mg/dL Ur Leukocyte Renée ase 2+ H (Negative) Urine RBC None (0-2) /hpf Urine WBC 40-55 H (0-5) /hpf Ur Squamous Epith Cells 0-4 H (0-5) /hpf Amorphous Sediment Not Reportable Urine Bacteria 1+ H (NONE) /hpf Discharge Plan Discharge Patient Disposition: Home Clinical Impression: Cystitis, Medication side effects, Hypertension Condition: Stable Prescriptions: New Cipro 500 mg tablet 500 mg PO BID Qty: 14 RF: 0 Changed carvedilol 25 mg tablet 25 mg PO BID Qty: 270 RF: 3 No Action valsartan 80 mg tablet 80 mg PO BID Qty: 60 RF: 2 atorvastatin 40 mg tablet 40 mg PO DAILY RF: 0 nitroglycerin 0.4 mg tablet, sublingual 0.4 mg SUBLINGUAL Q5M PRN (Reason: Chest Pain) Qty: 25 RF: 3 aspirin 81 mg Tablet,Delayed Release (Dr/Ec) 81 mg PO DAILY RF: 0 Vitamin D3 1 cap PO DAILY RF: 0 melatonin 1 tab PO BEDTIME RF: 0 isosorbide mononitrate 30 mg tablet extended release 24 hr 30 mg PO DAILY RF: 0 Discharge Orders: Discharge ED (Routine); Ordered 04/14/21 Ordered By: Pradip Brown Referrals: Silvia Peng MD [Primary Care Provider] - Discharge Diet: Usual diet Discharge Activity: Resume usual activity Patient Instructions: Opioid Safety Activity Restrictions/Additional Instructions: Follow-up with Dr. Hooker or his midlevel early next week return to emergency room if you have further problems. Coding Level of Care Code ED Supervisor Scrap Preparation for Loulou Fwd Exam Comprehensive
[2021-04-14] MEDS: sodium chloride 0.9% 1,000 ML 999 ML IV (14:33)
[2021-04-14 14:38] VITALS: BP 98/50
[2021-04-14 14:51] LABS: Basophils # 0.1 10^3/uL (0.0-0.1); Basophils % 0.7 %; Eosinophils # 0.1 10^3/uL (0.0-0.8); Eosinophils % 1.3 %; Hematocrit 35.2 % (37.0-47.0); Hemoglobin 10.9 g/dL (11.5-15.3); Lymphocytes # 1.1 10^3/uL (0.8-4.8); Lymphocytes % 15.1 %; Mean Corpuscular Hemoglobin 25.1 pg (28.0-34.0); Mean Corpuscular Volume 81.1 fL (81-99); Mean Platelet Volume 10.4 fL (7.4-10.4); Monocytes # 0.7 10^3/uL (0.2-0.9); Monocytes % 8.9 %; Neutrophils # 5.58 10^3/uL (1.8-7.7); Neutrophils % 73.6 %; Nucleated Red Blood Cells % 0 %; Platelet Count 270 10^3/cmm (130-400); Red Blood Count 4.34 10^6/uL (4.1-5.3); Red Cell Distribution Width 17.4 % (12.1-15.1); White Blood Count 7.6 10^3/uL (4.0-10.0)
[2021-04-14 15:14] LABS: Alanine Aminotransferase 13 U/L (0-33); Albumin Level 3.6 g/dL (3.5-5.2); Alkaline Phosphatase 131 IU/L (35-105); Anion Gap 12.9 (5-19); Aspartate Amino Transferase 15 U/L (0-32); Blood Urea Nitrogen 21 mg/dL (8-23); Calcium 8.9 mg/dL (8.5-10.5); Carbon Dioxide 26 mmol/L (22-29); Chloride 106 mmol/L (98-107); Globulin 2.1 g/dL (1.3-4.6); Glucose 111 mg/dL (65-115); Osmolality Calculated 296 mOsm/kg (285-295); Potassium 3.9 mmol/L (3.5-5.1); Sodium 141 mmol/L (136-145); Total Bilirubin 0.5 mg/dL (0.15-1.2); Total Protein 5.7 g/dL (6.6-8.7)
--- NOTE | 2021-04-14 15:31 | XRR_ITS ---
PROCEDURE INFORMATION: Exam: XR Chest Exam date and time: 04/14/2021 3:38 PM Age: 70 years old Clinical indication: Dyspnea; Additional info: Dyspnea/cough TECHNIQUE: Imaging protocol: XR of the chest. Views: 1 view. COMPARISON: CR (CHEST, ) 04/08/2021 2:25 PM FINDINGS: Lungs: There is unchanged basilar interstitial prominence compatible poor inspiration and vascular crowding versus mild fibrosis. No consolidation. Pulmonary vascularity is within normal limits. Pleural spaces: Unremarkable. No pleural effusion. No pneumothorax. Heart/Mediastinum: Unremarkable. No cardiomegaly. A probable hiatal hernia is present. Bones/joints: No acute abnormality. Postoperative changes in the cervical spine and moderate degenerative changes are noted. XR/XR chest 1V portable [id number] IMPRESSION: No acute findings.
--- NOTE | 2021-04-14 15:31 | ECG_ITS ---
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 Measurements Intervals [place] Rate: 65 P: 69 SD: 179 QRS: 19 QRSD: 69 T: 49 QT: 408 QTc: 425 Interpretive Statements SINUS RHYTHM SEPTAL MYOCARDIAL INFARCTION , OF INDETERMINATE AGE [40+ ms Q WAVE IN V1/V2] Compared to ECG 04/08/2021 16:45:46 Myocardial infarct finding now present Electronically Signed On 04-15-2021 20:41:25 CDT by Karime Solano M.D. [email or web address] mature adult care unitClassLinkblanchard valley [facility].[employer]/store/NU/[id number] f
[2021-04-14 15:53] VITALS: PULSE 70; RESP 18; O2SAT 99
[2021-04-14 15:56] LABS: Add Urine Microscopic? YES; Bilirubin Urine Neg (Negative); Blood Urine Neg (Negative); Glucose Urine UA Norm (Normal); Ketones Urine Negative (Negative); Leukocyte Esterase Urine 2+ (Negative); Nitrate Urine Negative (Negative); Protein Urine Neg (Negative); Specific Gravity, Urine 1.005 (1.005-1.030); Urine Appearance SL Hazy (CLEAR); Urine Color Straw (Yellow); Urobilinogen Urine Norm (Negative); WBC Urine 40-55 /hpf (0-5); pH Urine 7 (5-7)
[2021-04-14 15:57] LABS: Add Urine Culture? Yes; Bacteria Urine 1+ /hpf; Squamous Epithelial Cell Urine 0-4 /hpf (0-5)
[2021-04-14] MEDS: cefTRIAXone 1,000 MG in sodium chloride 0.9% (plus) 50 ML 100 MG IV (17:04)
[2021-04-14] MEDS: sodium chloride 0.9% 500 ML 999 ML IV (17:04)
[2021-04-14 18:51] VITALS: BP 122/65; PULSE 71; RESP 16; O2SAT 97
== END 2021-04-14 18:52 | disposition home or self-care (01) ==
PROVIDERS: Emergency Provider Family Medicine; PCP Family Medicine
DX: N30.90 Cystitis, unspecified without hematuria (principal); I10 Essential (primary) hypertension; T50.905A Adverse effect of unspecified drugs, medicaments and biological substances, initial encounter; Z79.82 Long term (current) use of aspirin; I25.10 Atherosclerotic heart disease of native coronary artery without angina pectoris; E78.5 Hyperlipidemia, unspecified; Z87.891 Personal history of nicotine dependence
CPT/HCPCS: 71045; 80053; 81001; 85025; 87086; 93005; 96365; 99284; J0696; J7030; J7040

== ENCOUNTER 2021-04-17 13:23 | Observation (INO) | payer MEDICARE, OTHER, SELFPAY ==
[2021-04-17] VITALS (9 sets, daily range): BP systolic 99–123; BP diastolic 51–65; PULSE 64–74; RESP 17–18; TEMP 36.6–36.9; O2SAT 90–96; BMI 29.9
--- NOTE | 2021-04-17 13:28 | CT_ITS ---
WS: [id number] CT CERVICAL TRAUMA TECHNIQUE: Noncontrast CT of the cervical spine with coronal and sagittal reformatted images. CLINICAL INFORMATION: fall COMPARISON: April 08, 2021 DLP: [address] scans at [facility] use at least one of these dose optimization techniques: automat ed exposure control; mA and/or kV adjustment per patient size (includes targeted exams where dose is matched to clinical indication); or iterative reconstruction. FINDINGS: Straightening of the normal cervical lordosis. Postoperative changes ACDF C5-6. Slight anterolisthesi s C3-C4 and C4-C5. Normal craniocervical junction. Normal C1-C2 articulation. Dens is normal in appearance. Normal occip ital condyles. No high-grade spinal canal narrowing. Normal C1 ring. No evidence of acute fracture or dislocation. Normal prevertebral soft tissues. Stable left thyroid nodule measuring 17 mm. Mastoids air cells are well aerated. CT/CT cervical spin wo con* [id number] IMPRESSION: 1. No evidence of acute fracture or dislocation. 2. Straightening of the normal cervical lordosis. Postoperative changes ACDF C 5-6. Slight anterolisthesis C3-C4 and C4-C5.
--- NOTE | 2021-04-17 13:28 | CT_ITS ---
WS: [id number] CT HEAD TECHNIQUE: Noncontrast CT of the head obtained from the skullbase to the vertex. CLINICAL INFORMATION: closed head injury COMPARISON: CT April 08, 2021 DLP: [address] scans at [facility] use at least one of these dose optimization techniques: automat ed exposure control; mA and/or kV adjustment per patient size (includes targeted exams where dose is matched to clinical indication); or iterative reconstruction. FINDINGS: No evidence of intracranial hemorrhage or mass effect. Ventricular system and basal cisterns are cormier nt. Moderate small vessel changes with mild parenchymal volume loss. No extra-axial fluid collections . No evidence of mass or mass effect. Normal segura-white differentiation. Paranasal sinuses and mastoid air cells are well aerated. .Normal visualized soft tissues. CT/CT head wo con* [id number] IMPRESSION: 1. No evidence of intracranial hemorrhage or mass effect. 2. Moderate small vessel changes. Mild parenchymal volume loss. 3. No acute intracranial findings.
--- NOTE | 2021-04-17 13:28 | ECG_ITS ---
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 Measurements Intervals [place] Rate: 61 P: 82 [place]: 170 QRS: 30 QRSD: 87 T: 58 QT: 425 QTc: 431 Interpretive Statements SINUS RHYTHM NONSPECIFIC T-WAVE ABNORMALITY Compared to ECG 04/14/2021 14:12:48 T-wave abnormality now present Myocardial infarct finding no longer present Electronically Signed On 04-18-2021 6:50:20 CDT by Nikki Doe M.D. [id number]
[2021-04-17 14:24] LABS: Basophils # 0.1 10^3/uL (0.0-0.1); Basophils % 0.7 %; Eosinophils # 0.1 10^3/uL (0.0-0.8); Eosinophils % 0.6 %; Hematocrit 37.2 % (37.0-47.0); Hemoglobin 11.3 g/dL (11.5-15.3); Lymphocytes # 1.1 10^3/uL (0.8-4.8); Lymphocytes % 10.9 %; Mean Corpuscular HGB Conc 30.4 g/dL (30.0-36.0); Mean Corpuscular Hemoglobin 25.1 pg (28.0-34.0); Mean Corpuscular Volume 82.5 fL (81-99); Mean Platelet Volume 10.8 fL (7.4-10.4); Monocytes # 0.8 10^3/uL (0.2-0.9); Monocytes % 8.2 %; Neutrophils # 7.72 10^3/uL (1.8-7.7); Neutrophils % 79.3 %; Nucleated Red Blood Cells % 0 %; Platelet Count 294 10^3/cmm (130-400); Red Blood Count 4.51 10^6/uL (4.1-5.3); Red Cell Distribution Width 17.4 % (12.1-15.1); White Blood Count 9.7 10^3/uL (4.0-10.0)
--- NOTE | 2021-04-17 14:25 | CT_ITS ---
WS: [id number] CT ABDOMEN PELVIS TECHNIQUE: Contrast-enhanced CT of the abdomen and pelvis with coronal and sagittal reformatted image s. CLINICAL INFORMATION: abd pain/trauma COMPARISON: CTA April 08, 2021 DLP: 1467.[address] scans at [facility] use at least one of these dose optimization techniques: automat ed exposure control; mA and/or kV adjustment per patient size (includes targeted exams where dose is matched to clinical indication); or iterative reconstruction. FINDINGS: Diffuse fatty infiltration liver. Normal portal vein and splenic vein. Normal GE junction. Bibasilar atelectasis. GE junction. Normal spleen. Small splenic cyst or hemangioma. Adrenal glands a re normal. Atrophic left kidney. Small left renal cyst. Normal right renal parenchymal enhancement. N o hydronephrosis. Ferguson catheter. Diffuse bladder wall thickening with enhancement. Sigmoid diverticulosis. Pedicle scr ew fixation L3-4 with interbody fusion graft. Mild lumbar curve convex left. Stable lobulated infrarenal abdominal aortic aneurysm is stable compared to April 08, 2021. Aneurysm m easures approximately 3.3 x 4.2 CM. Extensive atheromatous plaque abdominal aorta. Stable right commo n iliac artery aneurysm measuring 2.[address]/CT abdomen pelvis w con* [id number] IMPRESSION: 1. Bilobed lobulated infrarenal abdominal aortic aneurysm is stable compared t o April 08, 2021. Stable circumferential mural thrombus. 2. No evidence of aortic dissection. 3. Right common iliac artery aneurysm measuring 2.3 cm is unchanged. 4. Diffuse bladder wall thickening with enhancement consistent with known blad francis infection. Normal right renal parenchymal enhancement. 5. Stable atrophic left kidney. 6. Sigmoid diverticulosis. No evidence of acute diverticulitis. 7. Ferguson catheter. Notified Pradip Brown DO at 04/17/2021 3:37 PM.
--- NOTE | 2021-04-17 14:25 | XRR_ITS ---
PROCEDURE INFORMATION: Exam: XR Chest Exam date and time: 04/17/2021 2:56 PM Age: 70 years old Clinical indication: Injury or trauma; Fall; Cough and dyspnea; Blunt trauma (contusions or hematomas); Patient HX: No chest complaints per patient; Additional info: Dyspnea/cough TECHNIQUE: Imaging protocol: XR of the chest. Views: 1 view. COMPARISON: CR XR chest 1V portable [id number] 04/14/2021 3:48 PM FINDINGS: Lungs: Unremarkable. No consolidation. Pleural spaces: Unremarkable. No pleural effusion. No pneumothorax. Heart/Mediastinum: Unremarkable. No cardiomegaly. Bones/joints: Unremarkable. XR/XR chest 1V portable [id number] IMPRESSION: No acute findings.
--- NOTE | 2021-04-17 14:26 | ED_ITS ---
HPI - Fall General: Chief Complaint: Fall Stated Complaint: FALL/ LOC/ DEFICITS ON L SIDE Time Seen by Provider: 04/17/21 13:28 History of Present Illness: HPI Narrative: 70 female presents tp the ER with complaint of a syncopal episode and decreased responsiveness. She was at home with her and she got up to walk across the room she fell and struck her head on the and her neck on the side of the bathtub him EMS was called. There was a positive loss of consciousness and she responds only to painful stimuli. Patient was incontinent at the time of the fall. On arrival here she is able to follow simple commands such as open her eyes open her mouth etc. She was incontinent of stool and urine. She denies chest pain or difficulty breathing. She complaining of some abdominal and hip pain at least on physical exam. MD complaint: fall Onset (ago): minute(s) Fall from: standing Fall witnessed: yes, by family Place fall occurred: home Loss of consciousness: Yes Length of LOC: minutes(s) Prolonged down time: no Location of injury: head, abdomen and pelvis Severity: moderate Associated symptoms-after fall: Denies abdominal pain, chest pain, confusion, difficulty walking, headache(s), hematuria, lightheadedness, neck pain, numbness, short of breath, vertigo or weakness Review of Systems Const: Denies: fever(s), chills, body aches, change in appetite, fatigue or malaise ENMT: Denies: throat pain, ear or mastoid pain, nasal discharge or nasal congestion Card: Denies: chest pain or lightheadedness Resp: Denies: dyspnea, productive cough or non-productive cough GI: Denies: abdominal pain : Denies: hematuria Musc: Denies: neck pain Skin/Breast: Denies: rash or pruritus Neuro: Denies: headache(s), difficulty walking, vertigo or confusion PFS ED PFSH: Medical History Abdominal aortic aneurysm (AAA) 3.0 cm to 5.0 cm in diameter in female 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 Hazel, 2014 S/P cataract extraction and insertion of intraocular lens bilateral S/P cervical spinal fusion ACDFF Dr. Dawn 12/07/2015 S/P right coronary artery (RCA) stent placement (~05/2019) Family History Other Cancer Rheumatoid arthritis Denies family history of Chronic kidney disease (CKD) Systemic lupus erythematosus (SLE) in adult Lung disease Hypertension Social History Smoking and tobacco status: former smoker Alcohol intake: current Alcohol intake frequency: holidays/special occasions only History of recent travel: No (12/10/19) Physical Exam Const: COMMON NORMALS: no acute distress GENERAL APPEARANCE: cooperative and comfortable ORIENTATION/CONSCIOUSNESS: Yes awake HENMT: COMMON NORMALS: normocephalic, atraumatic and hearing grossly normal bilaterally HEAD & SCALP: normocephalic and atraumatic Neck/C-Spine: COMMON NORMALS: no JVD Resp: COMMON NORMALS: normal respiratory effort, No retractions, No use of accessory muscles and clear to auscultation bilaterally AUSCULTATION: clear to auscultation bilaterally Cardio: COMMON NORMALS: no JVD, regular rate, regular rhythm and No murmurs present (Cardio) RATE: regular rate RHYTHM: regular rhythm GI: COMMON NORMALS: Soft to palpation and No hepatosplenomegaly present AUSCULTATION: Yes normoactive bowel sounds PALPATION: Yes Soft to palpation, No Tenderness to palpation present (GI), No Guarding due to palpation present (GI) and Yes No hepatosplenomegaly present Extremity: COMMON NORMALS: normal to inspection, capillary refill normal, no clubbing, cyanosis or edema, no calf tenderness and no pedal edema Skin: COMMON NORMALS: no rashes or lesions noted GENERAL SKIN EXAM: no rashes or lesions noted Course Vital Signs: Vital signs: Vital Signs Pulse Rate 64 04/17/21 15:48 Respiratory Rate 18 04/17/21 15:48 Blood Pressure 113/65 04/17/21 15:48 Pulse Oximetry 96 04/17/21 15:48 MDM - Fall MDM Narrative: Medical decision making narrative: Patient more awake and alert can recall that she got up to go the bathroom does not recall anything that happened is complaining of neck and head pain. She has a cystitis. She is also on Plavix. Organ to recommend that she just be watched overnight. We will start her on IV antibiotics test. Discussed Dr. Bruce orders written. Lab Data: Labs: Lab Results 04/17/21 04/17/21 04/17/21 Range/Units 13:58 14:00 14:00 WBC 9.7 (4.0-10.0) 10^3/ uL RBC 4.51 (4.1-5.3) 10^6/u L Hgb 11.3 L (11.5-15.3) g/dL Hct 37.2 (37.0-47.0) % MCV 82.5 (81-99) fL MCH 25.1 L (28.0-34.0) pg MCHC 30.4 (30.0-36.0) g/dL RDW 17.4 H (12.1-15.1) % Plt Count 294 (130-400) 10^3/c mm MPV 10.8 H (7.4-10.4) fL Neut % (Auto) 79.3 % Lymph % (Auto) 10.9 % [place] % (Auto) 8.2 % Eos % (Auto) 0.6 % Baso % (Auto) 0.7 % Neut # (Auto) 7.72 H (1.8-7.7) 10^3/u L Lymph # (Auto) 1.1 (0.8-4.8) 10^3/u L [place] # (Auto) 0.8 (0.2-0.9) 10^3/u L Eos # (Auto) 0.1 (0.0-0.8) 10^3/u L Baso # (Auto) 0.1 (0.0-0.1) 10^3/u L Nucleated RBC % (a uto) 0 % Nucleated RBCs # 0.0 /100WBC PT 14.00 (12.1-14.9) SECO NDS INR 1.05 (0.8-1.2) APTT 23.7 L (23.9-36.7) SECO NDS Sodium (136-145) mmol/L Potassium (3.5-5.1) mmol/L Chloride (98-107) mmol/L Carbon Dioxide (22-29) mmol/L Anion Gap (5-19) BUN (8-23) mg/dL Creatinine (0.5-0.9) mg/dL GFR Calculation Glucose (65-115) mg/dL Calculated Osmolal ity (285-295) mOsm/k g Lactic Acid (0.5-2.2) mmol/L Calcium (8.5-10.5) mg/dL Total Bilirubin (0.15-1.2) mg/dL AST (0-32) U/L ALT (0-33) U/L Alkaline Phosphata se (35-105) IU/L Creatine Kinase (26-192) U/L C-Reactive Protein (0.0-4.9) mg/L Total Protein (6.6-8.7) g/dL Albumin (3.5-5.2) g/dL Globulin (1.3-4.6) g/dL Urine Color Yellow (Yellow) Urine Appearance Cloudy (CLEAR) Urine pH 6 (5-7) Ur Specific Gravit y 1.010 (1.005-1.030) Urine Protein 2+ H (Negative) Urine Glucose (UA) Norm (Normal) Urine Ketones Negative (Negative) Urine Blood 3+ H (Negative) Urine Nitrate Negative (Negative) Urine Bilirubin Neg (Negative) Urine Urobilinogen Norm (Negative) mg/dL Ur Leukocyte Renée ase 2+ H (Negative) Urine RBC 80-100 H (0-2) /hpf Urine WBC Too numerous to c nt H (0-5) /hpf Ur Squamous Epith Cells 5-10 H (0-5) /hpf Amorphous Sediment Not Reportable Urine Bacteria 2+ H (NONE) /hpf 04/17/21 04/17/21 Range/Units 14:00 14:00 WBC (4.0-10.0) 10^3/ uL RBC (4.1-5.3) 10^6/u L Hgb (11.5-15.3) g/dL Hct (37.0-47.0) % MCV (81-99) fL MCH (28.0-34.0) pg MCHC (30.0-36.0) g/dL RDW (12.1-15.1) % Plt Count (130-400) 10^3/c mm MPV (7.4-10.4) fL Neut % (Auto) % Lymph % (Auto) % [place] % (Auto) % Eos % (Auto) % Baso % (Auto) % Neut # (Auto) (1.8-7.7) 10^3/u L Lymph # (Auto) (0.8-4.8) 10^3/u L [place] # (Auto) (0.2-0.9) 10^3/u L Eos # (Auto) (0.0-0.8) 10^3/u L Baso # (Auto) (0.0-0.1) 10^3/u L Nucleated RBC % (a uto) % Nucleated RBCs # /100WBC PT (12.1-14.9) SECO NDS INR (0.8-1.2) APTT (23.9-36.7) SECO NDS Sodium 137 (136-145) mmol/L Potassium 4.1 (3.5-5.1) mmol/L Chloride 104 (98-107) mmol/L Carbon Dioxide 24 (22-29) mmol/L Anion Gap 13.1 (5-19) BUN 22 (8-23) mg/dL Creatinine 1.2 H (0.5-0.9) mg/dL GFR Calculation Not Reportable Glucose 111 (65-115) mg/dL Calculated Osmolal ity 288 (285-295) mOsm/k g Lactic Acid 1.5 (0.5-2.2) mmol/L Calcium 9.0 (8.5-10.5) mg/dL Total Bilirubin 0.5 (0.15-1.2) mg/dL AST 16 (0-32) U/L ALT 12 (0-33) U/L Alkaline Phosphata se 133 H (35-105) IU/L Creatine Kinase 30 (26-192) U/L C-Reactive Protein 11.7 H (0.0-4.9) mg/L Total Protein 5.9 L (6.6-8.7) g/dL Albumin 3.7 (3.5-5.2) g/dL Globulin 2.2 (1.3-4.6) g/dL Urine Color (Yellow) Urine Appearance (CLEAR) Urine pH (5-7) Ur Specific Gravit y (1.005-1.030) Urine Protein (Negative) Urine Glucose (UA) (Normal) Urine Ketones (Negative) Urine Blood (Negative) Urine Nitrate (Negative) Urine Bilirubin (Negative) Urine Urobilinogen (Negative) mg/dL Ur Leukocyte Renée ase (Negative) Urine RBC (0-2) /hpf Urine WBC (0-5) /hpf Ur Squamous Epith Cells (0-5) /hpf Amorphous Sediment Urine Bacteria (NONE) /hpf Discharge Plan Discharge Patient Disposition: Placed in Observation Admit Provider: Lisa Bruce Clinical Impression: Syncope, Cystitis, Fall, Closed head injury Coding Level of Care Code ED Night Order Selector for Chg Fwd Exam Comprehensive
[2021-04-17 14:32] LABS: INR 1.05 (0.8-1.2); Partial Thromboplastin Time 23.7 SECONDS (23.9-36.7)
[2021-04-17 14:48] LABS: Lactic Sepsis W/Reflex 1.5 mmol/L (0.5-2.2)
[2021-04-17 14:49] LABS: Alanine Aminotransferase 12 U/L (0-33); Albumin Level 3.7 g/dL (3.5-5.2); Alkaline Phosphatase 133 IU/L (35-105); Anion Gap 13.1 (5-19); Aspartate Amino Transferase 16 U/L (0-32); Blood Urea Nitrogen 22 mg/dL (8-23); C Reactive Protein 11.7 mg/L (0.0-4.9); Carbon Dioxide 24 mmol/L (22-29); Chloride 104 mmol/L (98-107); Creatine Phosphokinase 30 U/L (26-192); Globulin 2.2 g/dL (1.3-4.6); Glucose 111 mg/dL (65-115); Osmolality Calculated 288 mOsm/kg (285-295); Potassium 4.1 mmol/L (3.5-5.1); Sodium 137 mmol/L (136-145); Total Bilirubin 0.5 mg/dL (0.15-1.2); Total Protein 5.9 g/dL (6.6-8.7)
[2021-04-17 14:50] LABS: Urine Color Yellow (Yellow)
[2021-04-17 14:51] LABS: Add Urine Microscopic? YES; Bilirubin Urine Neg (Negative); Blood Urine 3+ (Negative); Glucose Urine UA Norm (Normal); Ketones Urine Negative (Negative); Leukocyte Esterase Urine 2+ (Negative); Nitrate Urine Negative (Negative); Protein Urine 2+ (Negative); Urine Appearance Cloudy (CLEAR); Urobilinogen Urine Norm (Negative); pH Urine 6 (5-7)
[2021-04-17 14:52] LABS: Creatinine Clr Calc Pharmacy 45.3851
[2021-04-17 15:09] LABS: Add Urine Culture? Yes; Bacteria Urine 2+ /hpf; RBC Urine 80-100 /hpf (0-2); WBC Urine TOO NUMEROUS TO CNT /hpf (0-5)
[2021-04-17] MEDS: iodixanol 320 mg/mL 100mL Btl IV (15:17)
[2021-04-17] MEDS: cefTRIAXone 2,000 MG in sodium chloride 0.9% (plus) 50 ML 100 MG IV (15:37)
--- NOTE | 2021-04-17 17:28 | P.HP_ITS ---
Providers/Chief Complaint Admitting Physician: Lisa Bruce MD Primary Care Provider: Silvia Peng MD Chief Complaint: FALL/ LOC/ DEFICITS ON L SIDE History of Present Illness Rosie Martinez is a 70 year old female recently administered at [facility] between April 08 to April 10 after having sustained a syncopal episode at home. At the time this was determined to be related to polypharmacy from antihypertensives. Her medications were reconciled and she was discharged to follow-up as outpatient with Louisa Davila. On her last visit on April 16 which was yesterday it was discovered that she had been taking all of her antihypertensives incorrectly at home. She had been taking both valsartan and losartan, simvastatin and atorvastatin together. She had 3 bottles of carvedilol at home. Per notes review it appears patient was taking 1 pill out of each bottle that she has accumulated over the past 2 to 3 years. She does not really know which medication she takes. Her helps her with medications but she reports he is often overwhelmed himself with his own medications. At her visit yesterday, her medication list was printed out, medication box was sorted and pharmacies were called to stop dispensing discontinued medications. Patient tells me she is not aware of these changes being made and does not know which medication she may have taken after returning home. She returns to the ER today with a similar episode of loss of consciousness at home. She was at home and got up to walk across the room, when she fell suddenly and struck her head and neck on side of the bathtub. She was initially only responsive to painful stimulus when EMS arrived, was also incontinent of both bowel and bladder, however by the time she presented to the ER she was able to follow all commands, participate in conversation. She denied any chest pain or difficulty breathing. Did not recall the events leading up to hospital admission. CT of the head and neck are without any acute intracranial events, no fractures identified.No evidence of dissection on abdominal scan. Extensive syncopal work-up on last visit. No arrhythmias were noted during the hospital stay.She was noted to be orthostatic. Carotid duplex showed less than 50% stenosis bilaterally of the ICA but there was a new finding of greater than 50% stenosis in the left subclavian artery. This was not definite due to difference in technical quality of the studies. Echocardiogram revealed normal LV cavity size, LVEF 66%, grade 1 diastolic dysfunction, normal to mildly elevated filling pressures. Severe MR, moderate TR which are both worsened from prior studies. No AR or stenosis. Review of Systems General: Reports: 10 or more systems reviewed and unremarkable except in HPI and below Const: Denies: fever(s), chills or body aches Eyes: Denies: change in vision, blurry vision or photophobia ENMT: Reports: hoarseness; Denies: throat pain, enlarged tonsils, odynophagia or nasal congestion Card: Denies: chest pain, palpitations, irregular heart rhythm, edema, swelling of feet/ankles, lightheadedness, pre-syncope, dyspnea on exertion or orthopnea Resp: Denies: dyspnea, productive cough, non-productive cough, wheezing, stridor, pain on inspiration, change in phlegm color, hemoptysis or chest conge stion GI: Denies: abdominal pain, nausea, vomiting, hematemesis, coffee ground emesis, dysphagia, heartburn, diarrhea, constipation, GI cramping, change in stool character, hematochezia or melena : Denies: flank pain, difficulty voiding, dysuria, urinary frequency, urinary urgency, urinary hesitancy or hematuria Musc: Denies: neck pain, back pain, extremity pain, joint swelling, joint warmth or deformity Neuro: Reports: frequent falls; Denies: headache(s), numbness in extremities, weakness in extremities, sensory changes, difficulty walking, dizziness, vertigo, behavioral changes, Slurred speech present or seizure-like activity Psych: Denies: anxiety, depression, suicidal ideation or homicidal ideation Endo: Denies: polyuria, polydipsia, tired all the time, cold intolerance or hot flashes [place]/Lymph: Denies: easy bruising or easy bleeding Medications/Allergies Home Medications Medication Instructions Recorded Confirmed Last Taken Type atorvastatin 40 mg tablet 40 mg PO DAILY 10/18/20 04/17/21 04/13/21 History nitroglycerin 0.4 mg sublingual 0.4 mg SUBLINGUAL Q5M PRN #25 tab 12/20/20 04/17/21 Unknown Rx tablet valsartan 80 mg tablet 80 mg PO BID #60 tab 02/09/21 04/17/21 04/14/21 Rx Vitamin D3 1 cap PO DAILY 04/08/21 04/17/2104/14/21 History aspirin 81 mg PO DAILY 04/08/21 04/17/21 04/14/21 History isosorbide mononitrate 30 mg PO DAILY 04/08/21 04/17/21 04/14/21 History melatonin 1 tab PO BEDTIME 04/08/21 04/17/21 04/13/21 History carvedilol 25 mg PO BID #270 tab 04/14/21 04/17/21 04/14/21 Rx ciprofloxacin HCl [Cipro] 500 mg PO BID #14 tab 04/14/21 04/17/21 Unknown Rx amlodipine 5 mg tablet 5 mg PO DAILY 04/16/21 04/17/21 Unknown History clopidogrel 75 mg tablet 75 mg PO DAILY 04/16/21 04/17/21 Unknown History indapamide 1.25 mg tablet 1.25 mg PO QAM 04/16/21 04/17/21 Unknown History Allergies Allergy/AdvReac Type Severity Reaction Status Date / Time codeine Allergy Unknown Unknown Verified 04/16/21 08:48 morphine Allergy Unknown Unknown Verified 04/16/21 08:48 Opioids - Morphine Analogues Allergy Unknown Unknown Verified 04/16/21 08:48 Opioids-Meperidine and Allergy Unknown Unknown Verified 04/16/21 08:48 Related Opioids-Methadone and Related Allergy Unknown Unknown Verified 04/16/21 08:48 hydrocodone Allergy VOMITING Verified 04/16/21 08:48 AND PASSING OUT oxycodone Allergy VOMITING,PASSES Verified 04/16/21 08:48 OUT PFSH Acute PFSH: Medical History Abdominal aortic aneurysm (AAA) 3.0 cm to 5.0 cm in diameter in female 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 Hazel, 2014 S/P cataract extraction and insertion of intraocular lens bilateral S/P cervical spinal fusion ACDFF Dr. Dawn 12/07/2015 S/P right coronary artery (RCA) stent placement (~05/2019) Family History Other Cancer Rheumatoid arthritis Denies family history of Chronic kidney disease (CKD) Systemic lupus erythematosus (SLE) in adult Lung disease Hypertension Social History Smoking and tobacco status: former smoker Alcohol intake: current Alcohol intake frequency: holidays/special occasions only History of recent travel: No (12/10/19) Vitals/I&O/Wt Last Vital Signs Temp 98.4 F 04/17/21 16:38 Pulse 64 04/17/21 16:38 Resp 18 04/17/21 16:38 BP 113/65 04/17/21 16:38 Pulse Ox 95 04/17/21 16:38 04/17/21 04/17/21 04/17/21 06:59 14:59 22:59 Intake Total 50 / 50 Balance 50 / 50 Weight last 48 hrs Weight 81.647 kg Physical Exam Narrative: EXAM NARRATIVE: General: No acute distress, AO x3 HEENT: PERRLA, pupils bilaterally equal and reactive, pallors not present Chest: Normal vesicular breath sounds, no added sounds, equal good air entry bilaterally CVS: S1-S2 regular, no murmurs, no tachycardia, no gallops, no rubs Abdomen: Soft, nontender, no organomegaly, bowel sounds present Neuro: No focal deficits, no facial deformity, AO x3, power 5/5 in all limbs Extremities: no fractures or dislocations Urinary Catheter Management^: Ferguson: Cath Placed During This Visit: yes Urinary Catheter Date of Insertion: 04/17/21 Urinary Catheter Time of Insertion: 15:49 Data : 04/17/21 14:00 04/17/21 14:00 Micro: Microbiology 04/17/21 15:30 Blood Culture - Preliminary Blood SPECIMEN COLLECTED 04/17/21 14:00 Blood Culture - Preliminary Blood SPECIMEN COLLECTED Attestation for Other Data: I personally reviewed and interpreted the following: Other data: Laboratory Results WBC 9.7 10^3/uL (4.0-10.0) 04/17/21 14:00 RBC 4.51 10^6/uL (4.1-5.3) 04/17/21 14:00 Hgb 11.3 g/dL (11.5-15.3) L 04/17/21 14:00 Hct 37.2 % (37.0-47.0) 04/17/21 14:00 MCV 82.5 fL (81-99) 04/17/21 14:00 MCH 25.1 pg (28.0-34.0) L 04/17/21 14:00 MCHC 30.4 g/dL (30.0-36.0) 04/17/21 14:00 RDW 17.4 % (12.1-15.1) H 04/17/21 14:00 Plt Count 294 10^3/cmm (130-400) 04/17/21 14:00 MPV 10.8 fL (7.4-10.4) H 04/17/21 14:00 Neut % (Auto) 79.3 % 04/17/21 14:00 Lymph % (Auto) 10.9 % 04/17/21 14:00 [place] % (Auto) 8.2 % 04/17/21 14:00 Eos % (Auto) 0.6 % 04/17/21 14:00 Baso % (Auto) 0.7 % 04/17/21 14:00 Neut # (Auto) 7.72 10^3/uL (1.8-7.7) H 04/17/21 14:00 Lymph # (Auto) 1.1 10^3/uL (0.8-4.8) 04/17/21 14:00 [place] # (Auto) 0.8 10^3/uL (0.2-0.9) 04/17/21 14:00 Eos # (Auto) 0.1 10^3/uL (0.0-0.8) 04/17/21 14:00 Baso # (Auto) 0.1 10^3/uL (0.0-0.1) 04/17/21 14:00 Nucleated RBC % (auto) 0 % 04/17/21 14:00 Nucleated RBCs # 0.0 /100WBC 04/17/21 14:00 PT 14.00 SECONDS (12.1-14.9) 04/17/21 14:00 INR 1.05 (0.8-1.2) 04/17/21 14:00 APTT 23.7 SECONDS (23.9-36.7) L 04/17/21 14:00 Sodium 137 mmol/L (136-145) 04/17/21 14:00 Potassium 4.1 mmol/L (3.5-5.1) 04/17/21 14:00 Chloride 104 mmol/L (98-107) 04/17/21 14:00 Carbon Dioxide 24 mmol/L (22-29) 04/17/21 14:00 Anion Gap 13.1 (5-19) 04/17/21 14:00 BUN 22 mg/dL (8-23) 04/17/21 14:00 Creatinine 1.2 mg/dL (0.5-0.9) H 04/17/21 14:00 GFR Calculation Not Reportable 04/17/21 14:00 Glucose 111 mg/dL (65-115) 04/17/21 14:00 Calculated Osmolality 288 mOsm/kg (285-295) 04/17/21 14:00 Lactic Acid 1.5 mmol/L (0.5-2.2) 04/17/21 14:00 Calcium 9.0 mg/dL (8.5-10.5) 04/17/21 14:00 Total Bilirubin 0.5 mg/dL (0.15-1.2) 04/17/21 14:00 AST 16 U/L (0-32) 04/17/21 14:00 ALT 12 U/L (0-33) 04/17/21 14:00 Alkaline Phosphatase 133 IU/L (35-105) H 04/17/21 14:00 Creatine Kinase 30 U/L (26-192) 04/17/21 14:00 C-Reactive Protein 11.7 mg/L (0.0-4.9) H 04/17/21 14:00 Total Protein 5.9 g/dL (6.6-8.7) L 04/17/21 14:00 Albumin 3.7 g/dL (3.5-5.2) 04/17/21 14:00 Globulin 2.2 g/dL (1.3-4.6) 04/17/21 14:00 Urine Color Yellow (Yellow) 04/17/21 13:58 Urine Appearance Cloudy (CLEAR) 04/17/21 13:58 Urine pH 6 (5-7) 04/17/21 13:58 Ur Specific [place] 1.010 (1.005-1.030) 04/17/21 13:58 Urine Protein 2+ (Negative) H 04/17/21 13:58 Urine Glucose (UA) Norm (Normal) 04/17/21 13:58 Urine Ketones Negative (Negative) 04/17/21 13:58 Urine Blood 3+ (Negative) H 04/17/21 13:58 Urine Nitrate Negative (Negative) 04/17/21 13:58 Urine Bilirubin Neg (Negative) 04/17/21 13:58 Urine Urobilinogen Norm mg/dL (Negative) 04/17/21 13:58 Ur Leukocyte Esterase 2+ (Negative) H 04/17/21 13:58 Urine RBC 80-100 /hpf (0-2) H 04/17/21 13:58 Urine WBC Too numerous to cnt /hpf (0-5) H 04/17/21 13:58 Ur Squamous Epith Cells 5-10 /hpf (0-5) H 04/17/21 13:58 Amorphous Sediment Not Reportable 04/17/21 13:58 Urine Bacteria 2+ /hpf (NONE) H 04/17/21 13:[address] 04/17/21 13:28 IMPRESSION: 1. No evidence of acute fracture or dislocation. 2. Straightening of the normal cervical lordosis. Postoperative changes ACDF C5-6. Slight anterolisthesis C3-C4 and C4-C5. Head CT 04/17/21 13:28 IMPRESSION: 1. No evidence of intracranial hemorrhage or mass effect. 2. Moderate small vessel changes. Mild parenchymal volume loss. 3. No acute intracranial findings. Abdomen/Pelvis CT 04/17/21 14:25 IMPRESSION: 1. Bilobed lobulated infrarenal abdominal aortic aneurysm is stable compared to April 08, 2021. Stable circumferential mural thrombus. 2. No evidence of aortic dissection. 3. Right common iliac artery aneurysm measuring 2.3 cm is unchanged. 4. Diffuse bladder wall thickening with enhancement consistent with known bladder infection. Normal right renal parenchymal enhancement. 5. Stable atrophic left kidney. 6. Sigmoid diverticulosis. No evidence of acute diverticulitis. 7. Ferguson catheter. Notified Pradip Brown DO at 04/17/2021 3:37 PM. Chest X-Ray 04/17/21 14:25 IMPRESSION: No acute findings. A&P Assessment and plan (1) Syncope and collapse: Patient recently admitted for syncope and collapse, attributed at the time to orthostatic hypotension and polypharmacy from antihypertensives. As in spite of extensive counseling both at discharge and at her recent outpatient visit, it does not appear patient was able to make the recommended changes. Liana pect polypharmacy still to be contributing at this present time. Hold all antihypertensives for now orthostatic check Telemetry monitoring to exclude arrhythmias. Will arrange for Holter monitor at discharge this time. Recent echocardiogram and carotid artery ultrasound as noted above. CT head and CT of the neck without any acute events Status: Acute (2) Fall: Status: Acute Qualifiers: Encounter type: initial encounter Qualified Code(s): W19.XXXA - Unspecified fall, initial encounter (3) Polypharmacy: Status: Acute (4) Hypertension: Status: Acute Qualifiers: Hypertension type: essential hypertension Qualified Code(s): I10 - Essential (primary) hypertension (5) UTI (urinary tract infection): Acute sytsitis Iv ceftriaxone empirically follow urine cx Status: Acute Qualifiers: Urinary tract infection type: acute cystitis Additional A&P Information DVT ppx: low risk currently Attestations Medical Necessity Statement*: <2midnight anticipated for observation for syncopal episode, telemetry monitoring,medical reconciliation Coding Level of Care Code Acute Vaccine Key Customer Leader for [facility] Diagnoses Syncope and collapse R55 Fall W19.XXXA Encounter type: initial encounter Polypharmacy Z79.899 Hypertension I10 Hypertension type: essential hypertension UTI (urinary tract infection) N39.0 Urinary tract infection type: acute cystitis
[2021-04-17] MEDS: D5-NS 0.45% + KCL 20 mEq 20 MEQ/1,000 ML BAG 100 MEQ IV (17:56)
[2021-04-17] MEDS: carvedilol 25 mg Tablet 12.5 MG PO (18:29)
[2021-04-18] VITALS (7 sets, daily range): BP systolic 105–143; BP diastolic 57–79; PULSE 67–78; RESP 17–20; TEMP 36.6–37.1; O2SAT 94–95
[2021-04-18 06:08] LABS: Basophils # 0.1 10^3/uL (0.0-0.1); Basophils % 0.7 %; Eosinophils # 0.1 10^3/uL (0.0-0.8); Eosinophils % 1.1 %; Hematocrit 35.8 % (37.0-47.0); Hemoglobin 10.7 g/dL (11.5-15.3); Lymphocytes # 1.4 10^3/uL (0.8-4.8); Lymphocytes % 19.8 %; Mean Corpuscular HGB Conc 29.9 g/dL (30.0-36.0); Mean Corpuscular Hemoglobin 25.1 pg (28.0-34.0); Mean Corpuscular Volume 83.8 fL (81-99); Mean Platelet Volume 10.6 fL (7.4-10.4); Monocytes # 0.8 10^3/uL (0.2-0.9); Monocytes % 10.7 %; Neutrophils # 4.87 10^3/uL (1.8-7.7); Neutrophils % 67.4 %; Nucleated Red Blood Cells % 0 %; Platelet Count 236 10^3/cmm (130-400); Red Blood Count 4.27 10^6/uL (4.1-5.3); Red Cell Distribution Width 17.4 % (12.1-15.1); White Blood Count 7.2 10^3/uL (4.0-10.0)
[2021-04-18 06:33] LABS: Alanine Aminotransferase 10 U/L (0-33); Albumin Level 3.1 g/dL (3.5-5.2); Alkaline Phosphatase 118 IU/L (35-105); Anion Gap 12.9 (5-19); Aspartate Amino Transferase 13 U/L (0-32); Blood Urea Nitrogen 21 mg/dL (8-23); Calcium 8.8 mg/dL (8.5-10.5); Carbon Dioxide 24 mmol/L (22-29); Chloride 107 mmol/L (98-107); Creatinine Clr Calc Pharmacy 60.5134; Globulin 2.6 g/dL (1.3-4.6); Glucose 89 mg/dL (65-115); Osmolality Calculated 292 mOsm/kg (285-295); Potassium 3.9 mmol/L (3.5-5.1); Sodium 140 mmol/L (136-145); Total Bilirubin 0.4 mg/dL (0.15-1.2); Total Protein 5.7 g/dL (6.6-8.7)
[2021-04-18 07:04] LABS: Cortisol Random 12.98 ug/dL (2.47-19.5)
[2021-04-18] MEDS: carvedilol 25 mg Tablet 12.5 MG PO (08:30)
[2021-04-18] MEDS: aspirin 81 mg EC Tablet PO (08:30)
[2021-04-18] MEDS: clopidogrel 75 mg Tablet PO (08:30)
[2021-04-18] MEDS: atorvastatin 40 mg Tablet PO (08:30)
--- NOTE | 2021-04-18 10:27 | PC.NURSE ---
Wong DC 9.5 mL of sterile water from wong removed prior to removal. Patient tolerated well.
[2021-04-18] MEDS: cefTRIAXone 1,000 MG in sodium chloride 0.9% (plus) 50 ML 100 MG IV (15:35)
--- NOTE | 2021-04-18 17:19 | P.DS_ITS ---
Discharge Providers Date of Admission: 04/17/21 15:39 Date of Discharge: April 18, 2021 Attending Provider at Admission: Lisa Bruce MD Attending Provider at Discharge: Lisa Bruce MD Primary Care Provider: Silvia Peng MD Diagnoses at Discharge Discharge Diagnosis (1) Syncope and collapse: Status: Acute (2) Fall: Status: Acute Qualifiers: Encounter type: initial encounter Qualified Code(s): W19.XXXA - Unspecified fall, initial encounter (3) Polypharmacy: Status: Acute (4) Hypertension: Status: Acute Qualifiers: Hypertension type: essential hypertension Qualified Code(s): I10 - Essential (primary) hypertension (5) UTI (urinary tract infection): Status: Acute Qualifiers: Urinary tract infection type: acute cystitis Hematuria presence: without hematuria Qualified Code(s): N30.00 - Acute cystitis without hematuria Reason for Visit Reason for Visit: FALL/ LOC/ DEFICITS ON L SIDE Hospital Course Hospital Course Patient was admitted yesterday patient was admitted yesterday with a history of fall and syncope at home similar to her previous episode for which she was recently discharged on April 10, 2021. For details please see my H&P from yesterday. Overall recent work-up had been unremarkable. On this current admission her antihypertensives were held. On the Coreg was continued. Patient's blood pressure ranged between systolic 100-1 20. No orthostatic was noted at this time. Telemetry monitoring did not reveal any arrhythmias. Case was discussed with her outpatient information coder Dr. Castellon and a Holter monitor has been arranged for home use. Additionally patient reports that she does not understand how to take her home medications and may be inadvertently taking too many pills at the same time and multiple medications of the same category. Home health services specifically a home health nurse was arranged to assist her with medication management. [facility] 7[facility]10 days . All antihypertensives with the exception of all antihypertensives with the exception of carvedilol are being held at discharge. She was also diagnosed to have a urinary tract infection as a result of positive UA, ciprofloxacin 500 twice daily has been ordered at discharge. Urine culture remains pending. Physical Exam Narrative: EXAM NARRATIVE: General: No acute distress, AO x3 HEENT: PERRLA, pupils bilaterally equal and reactive, pallors not present Chest: Normal vesicular breath sounds, no added sounds, equal good air entry bilaterally CVS: S1-S2 regular, no murmurs, no tachycardia, no gallops, no rubs Abdomen: Soft, nontender, no organomegaly, bowel sounds present Neuro: No focal deficits, no facial deformity, AO x3, power 5/5 in all limbs Extremities: no fractures or dislocations Urinary Catheter Management^: Ferguson: Cath Placed During This Visit: yes, but has since been removed by the nurse Reason for Continuing Indwelling Catheter: Decision to DC Catheter Urinary Catheter Date of Insertion: 04/17/21 Urinary Catheter Time of Insertion: 15:49 Date Urinary Catheter Removed: 04/18/21 Time Urinary Catheter Discontinued: 10:20 Discharge Data Data Completed and Pending: Completed Studies During Hospitalization Category Date Time Status CT abdomen pelvis w con* [id number] Stat Cat Scan 04/17/21 14:[address] cervical spin wo con* [id number] Stat Cat Scan 04/17/21 13:[address] head wo con* 7 0450 Stat Cat Scan 04/17/21 13:28 Completed XR chest 1V aishwarya ble [id number] Stat Exams 04/17/21 14:25 Completed Pending at discharge Category Date Time Status Blood Culture Sta t Lab 04/17/21 15:30 Results Urine Culture Sta t Lab 04/17/21 13:58 Received Labs from last 24 hours 04/18/21 04/18/21 04/18/21 05:05 05:05 05:05 WBC 7.2 RBC 4.27 Hgb 10.7 L Hct 35.8 L MCV 83.8 MCH 25.1 L MCHC 29.9 L RDW 17.4 H Plt Count 236 MPV 10.6 H Neut % (Auto) 67.4 Lymph % (Auto) 19.8 [place] % (Auto) 10.7 Eos % (Auto) 1.1 Baso % (Auto) 0.7 Neut # (Auto) 4.87 Lymph # (Auto) 1.4 [place] # (Auto) 0.8 Eos # (Auto) 0.1 Baso # (Auto) 0.1 Nucleated RBC % (a uto) 0 Nucleated RBCs # 0.0 Sodium 140 Potassium 3.9 Chloride 107 Carbon Dioxide 24 Anion Gap 12.9 BUN 21 Creatinine 0.9 GFR Calculation Not Reportable Glucose 89 Calculated Osmolal ity 292 Calcium 8.8 Total Bilirubin 0.4 AST 13 ALT 10 Alkaline Phosphata se 118 H Total Protein 5.7 L Albumin 3.1 L Globulin 2.6 Random Cortisol 12.98 Vitals: Last Vital Signs Temp 98 F 04/18/21 16:56 Pulse 78 04/18/21 16:56 Resp 20 H 04/18/21 16:56 BP 105/58 04/18/21 16:56 Pulse Ox 94 04/18/21 16:56 Discharge Plan Discharge Patient Disposition: Home Condition: Stable Prescriptions: Continued atorvastatin 40 mg tablet 40 mg PO DAILY RF: 0 indapamide 1.25 mg tablet 1.25 mg PO QAM RF: 0 clopidogrel 75 mg tablet 75 mg PO DAILY RF: 0 nitroglycerin 0.4 mg tablet, sublingual 0.4 mg SUBLINGUAL Q5M PRN (Reason: Chest Pain) Qty: 25 RF: 3 aspirin 81 mg Tablet,Delayed Release (Dr/Ec) 81 mg PO DAILY RF: 0 Vitamin D3 1 cap PO DAILY RF: 0 melatonin 1 tab PO BEDTIME RF: 0 ciprofloxacin HCl [Cipro] 500 mg tablet 500 mg PO BID Qty: 14 RF: 0 carvedilol 25 mg tablet 25 mg PO BID Qty: 270 RF: 3 Held valsartan 80 mg tablet 80 mg PO BID Qty: 60 RF: 2 Hold Instructions: hold until follow up with cardiology amlodipine 5 mg tablet 5 mg PO DAILY RF: 0 Hold Instructions: hold until follow up with Eb Davila isosorbide mononitrate 30 mg tablet extended release 24 hr 30 mg PO DAILY RF: 0 Hold Instructions: hold until follow up with cardiology Discharge Orders: Discharge Order (Routine); Ordered 04/18/21 Ordered By: Lisa Bruce Other Ambulatory Orders: [place] cardiac event monitor (Routine) Timeframe: 2 Days Facility: [facility] - Location: Cardiac Diagnostic Laboratory Ordered By: Lisa Bruce Referrals: [facility] [Outside] Silvia Peng MD [Primary Care Provider] - 04/25/21 11:30 am Tamera Castellon MD [Physician] - 04/24/21 8:30 am (APPOINTMENT WILL BE WITH EB ROBBINS) Discharge Diet: Usual diet Discharge Activity: Resume usual activity Patient Instructions: Syncope, Urinary Tract Infection in Women (GEN), Opioid Safety Activity Restrictions/Additional Instructions: APPOINTMENT FOR [facility] [phone] ON FridayAPRIL 19 AT 1:30 Discharge Attestations Time Spent in Discharge Care*: less than 30 min Status at Discharge: Cognitive status at discharge: cognitively intact , Behavioral status at discharge: cooperative , Quality Metrics Clinical Quality Measures During this hospital stay, did patient experience: None Coding Level of Care Code Acute Chg FW DC note Diagnoses Syncope and collapse R55 Fall W19.XXXA Encounter type: initial encounter Polypharmacy Z79.899 Hypertension I10 Hypertension type: essential hypertension UTI (urinary tract infection) N30.00 Urinary tract infection type: acute cystitis Hematuria presence: without hematuria
== END 2021-04-18 16:57 | disposition home or self-care (01) ==
LOC: ER 14:48 → MEDSURG 16:21
PROVIDERS: Admitting Provider Student in an Organized Health Care Education/Training Program; Emergency Provider Family Medicine; PCP Family Medicine; Visit Provider Student in an Organized Health Care Education/Training Program
DX: R55 Syncope and collapse (principal); Z79.899 Other long term (current) drug therapy; I10 Essential (primary) hypertension; N30.00 Acute cystitis without hematuria; Z91.81 History of falling; I25.10 Atherosclerotic heart disease of native coronary artery without angina pectoris; E78.5 Hyperlipidemia, unspecified; G47.33 Obstructive sleep apnea (adult) (pediatric); Z87.891 Personal history of nicotine dependence
CPT/HCPCS: 36415; 51702; 70450; 71045; 72125; 74177; 80053; 81001; 82533; 82550; 83605; 85025; 85610; 85730; 86140; 87040; 87086; 93005; 96365; 99285; G0378; J0696; Q9967

== ENCOUNTER 2021-06-15 19:09 | Emergency (ER) | payer MEDICARE, OTHER, SELFPAY ==
[2021-06-15 19:17] VITALS: BP 219/91; PULSE 65; RESP 19; TEMP 36.4; O2SAT 98; BMI 30.7
--- NOTE | 2021-06-15 19:30 | XRR_ITS ---
PROCEDURE INFORMATION: Exam: XR Chest Exam date and time: 06/15/2021 7:30 PM Age: 71 years old Clinical indication: Sternal or substernal pain; Prior surgery; Additional info: Cp TECHNIQUE: Imaging protocol: XR of the chest. Views: 1 view. COMPARISON: CR XR chest 1V portable [id number] 04/17/2021 2:53 PM FINDINGS: Lungs: Unremarkable. No consolidation. Pleural spaces: Unremarkable. No pleural effusion. No pneumothorax. Heart/Mediastinum: Unremarkable. No cardiomegaly. Bones/joints: Unremarkable. Lower cervical spine ACDF. XR/XR chest 1V portable [id number] IMPRESSION: No acute findings.
[2021-06-15 19:44] LABS: Basophils # 0.1 10^3/uL (0.0-0.1); Basophils % 1.1 %; Eosinophils # 0.2 10^3/uL (0.0-0.8); Eosinophils % 3.2 %; Hematocrit 36.6 % (37.0-47.0); Hemoglobin 11.3 g/dL (11.5-15.3); Lymphocytes # 1.8 10^3/uL (0.8-4.8); Lymphocytes % 27.9 %; Mean Corpuscular HGB Conc 30.9 g/dL (30.0-36.0); Mean Corpuscular Hemoglobin 25.5 pg (28.0-34.0); Mean Corpuscular Volume 82.4 fL (81-99); Mean Platelet Volume 10.6 fL (7.4-10.4); Monocytes # 0.6 10^3/uL (0.2-0.9); Monocytes % 9.9 %; Neutrophils # 3.73 10^3/uL (1.8-7.7); Neutrophils % 57.6 %; Nucleated Red Blood Cells % 0 %; Platelet Count 286 10^3/cmm (130-400); Red Blood Count 4.44 10^6/uL (4.1-5.3); Red Cell Distribution Width 15.4 % (12.1-15.1); White Blood Count 6.5 10^3/uL (4.0-10.0)
--- NOTE | 2021-06-15 19:50 | ED_ITS ---
HPI - Chest Pain General: Chief Complaint: Chest Pain Stated Complaint: LLE INJURY/FALL Time Seen by Provider: 06/15/21 19:45 Source: patient Mode of arrival: ambulatory Limitations: no limitations History of Present Illness: HPI narrative: 71-year-old female states she was cleaning today and tripped and fell. States that she landed on her left knee and has some slight left knee pain. She is able ambulate without any difficulty. States she is also been having some chest pain. Talking to her further she states that it she has had chest pain for months and months and this is not atypical for. States started having some pains while she was cleaning is since resolved. Denies any shortness of breath. Denies any vomiting. Associated symptoms: Deny abdominal pain, dyspnea, fever(s), nausea or vomiting Review of Systems Const: Denies: fever(s), chills, body aches or change in appetite Eyes: Denies: blurry vision or eye discomfort ENMT: Denies: throat pain or dental pain Card: Reports: chest pain Resp: Denies: dyspnea GI: Denies: abdominal pain, nausea, vomiting or diarrhea : Denies: dysuria Musc: Reports: extremity pain Skin/Breast: Denies: rash Neuro: Denies: headache(s) Psych: Denies: depression Shayan/Lymph: Denies: easy bruising All/Imm: Denies: urticaria PFSH ED PFSH: Medical History Abdominal aortic aneurysm (AAA) 3.0 cm to 5.0 cm in diameter in female 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 Hazel, 2013 S/P cataract extraction and insertion of intraocular lens bilateral S/P cervical spinal fusion ACDFF Dr. Dawn 12/07/2015 S/P right coronary artery (RCA) stent placement (~05/2019) Family History Other Cancer Rheumatoid arthritis Denies family history of Chronic kidney disease (CKD) Systemic lupus erythematosus (SLE) in adult Lung disease Hypertension Social History Smoking and tobacco status: former smoker Alcohol intake: current Alcohol intake frequency: holidays/special occasions only History of recent travel: No (12/10/19) Physical Exam Const: COMMON NORMALS: no acute distress, patient oriented x3 and healthy appearing HENMT: COMMON NORMALS: normocephalic and atraumatic HEAD & SCALP: normocephalic and atraumatic Eye: COMMON NORMALS: Equal, round and reactive pupils present and EOMs intact bilaterally PUPIL: Yes Equal, round and reactive pupils present Neck/C-Spine: COMMON NORMALS: full ROM and supple Chest: COMMONS NORMALS: normal inspection of the chest and normal palpation of entire chest wall Resp: COMMON NORMALS: normal respiratory effort, No retractions, No use of accessory muscles and clear to auscultation bilaterally AUSCULTATION: clear to auscultation bilaterally Cardio: COMMON NORMALS: regular rate, regular rhythm and No murmurs present (Cardio) RATE: regular rate RHYTHM: regular rhythm GI: COMMON NORMALS: Normal to inspection, nondistended, normoactive bowel sounds present, Soft to palpation, non-tender and no masses PALPATION: Yes Soft to palpation Extremity: COMMON NORMALS: normal to inspection and full ROM NARRATIVE EXTREMITY EXAM: Tenderness over left knee patient is able to ambulate and has full range of motion Neuro: COMMON NORMALS: patient oriented x3, moves all extremities and no focal motor deficits Psych: COMMON NORMALS: mental status grossly normal, Normal thought process present and cooperative THOUGHT PROCESS: Normal thought process present Skin: COMMON NORMALS: no rashes or lesions noted and no wounds GENERAL SKIN EXAM: no rashes or lesions noted Course Vital Signs: Vital signs: Vital Signs Temperature 97.5 F L 06/15/21 19:17 Pulse Rate 62 06/15/21 19:53 Respiratory Rate 16 06/15/21 19:53 Blood Pressure 219/91 06/15/21 19:17 Pulse Oximetry 99 06/15/21 19:53 MDM - Chest Pain MDM Narrative: Medical decision making narrative: Patient presents here with knee pain from a fall. Patient complained of chest pain and I informed her is in a rock heart disease. Patient at this time is extremely upset call me back in her room and states that she wants to leave right now. She told me that she always has chest pain and she does not want any further labs or anything done for her chest she just wanted her knee checked out. Explained her blood pressure was high and wanted to check a 2-hour troponin as well. She refuses and states she does not know why that we are evaluating her heart because she always has chest pain. She has decision made capacity and is stable for discharge. Lab Data: Labs: Lab Results 06/15/21 06/15/21 06/15/21 Range/Units 19:31 19:31 19:31 WBC 6.5 (4.0-10.0) 10^3/ uL RBC 4.44 (4.1-5.3) 10^6/u L Hgb 11.3 L (11.5-15.3) g/dL Hct 36.6 L (37.0-47.0) % MCV 82.4 (81-99) fL MCH 25.5 L (28.0-34.0) pg MCHC 30.9 (30.0-36.0) g/dL RDW 15.4 H (12.1-15.1) % Plt Count 286 (130-400) 10^3/c mm MPV 10.6 H (7.4-10.4) fL Neut % (Auto) 57.6 % Lymph % (Auto) 27.9 % [place] % (Auto) 9.9 % Eos % (Auto) 3.2 % Baso % (Auto) 1.1 % Neut # (Auto) 3.73 (1.8-7.7) 10^3/u L Lymph # (Auto) 1.8 (0.8-4.8) 10^3/u L [place] # (Auto) 0.6 (0.2-0.9) 10^3/u L Eos # (Auto) 0.2 (0.0-0.8) 10^3/u L Baso # (Auto) 0.1 (0.0-0.1) 10^3/u L Nucleated RBC % (a uto) 0 % Nucleated RBCs # 0.0 /100WBC Sodium 138 (136-145) mmol/L Potassium 3.7 (3.5-5.1) mmol/L Chloride 104 (98-107) mmol/L Carbon Dioxide 25 (22-29) mmol/L Anion Gap 12.7 (5-19) BUN 12 (8-23) mg/dL Creatinine 0.9 (0.5-0.9) mg/dL GFR Calculation Not Reportable Glucose 92 (65-115) mg/dL Calculated Osmolal ity 285 (285-295) mOsm/k g Calcium 9.2 (8.5-10.5) mg/dL Total Bilirubin 0.4 (0.15-1.2) mg/dL AST 20 (0-32) U/L ALT 15 (0-33) U/L Alkaline Phosphata se 146 H (35-105) IU/L Troponin T Baselin e 12 H (0-10) ng/L Total Protein 5.6 L (6.6-8.7) g/dL Albumin 3.8 (3.5-5.2) g/dL Globulin 1.8 (1.3-4.6) g/dL Imaging Data^: CXR: Attestation: I personally reviewed and interpreted this imaging study as follows: Radiologist's impression: [address] [address] XRay Report Signed Patient: Rosie Martinez Unit #: [id number] : 1950 Age/Sex: 71 / F ADM Date: 06/15/21 Loc: ER Room/Bed: Attending Dr: Ordering Provider/Ordering MD: Daniel Sorenson MD Date of Service: 06/15/21 Procedure(s): XR chest 1V portable [id number] Accession Number(s): [id number] Report Number: [id number] PROCEDURE INFORMATION: Exam: XR Chest Exam date and time: 06/15/2021 7:30 PM Age: 71 years old Clinical indication: Sternal or substernal pain; Prior surgery; Additional info: Cp TECHNIQUE: Imaging protocol: XR of the chest. Views: 1 view. COMPARISON: CR XR chest 1V portable [id number] 04/17/2021 2:53 PM FINDINGS: Lungs: Unremarkable. No consolidation. Pleural spaces: Unremarkable. No pleural effusion. No pneumothorax. Heart/Mediastinum: Unremarkable. No cardiomegaly. Bones/joints: Unremarkable. Lower cervical spine ACDF. XR/XR chest 1V portable [id number] IMPRESSION: No acute findings. Dictated By: Juan Francisco Blanton Signed By: Juan Francisco Blanton Signed Date/Time: 06/15/212025 DD/ 23 Xray Ortho: Radiologist's impression: [address] [address] XRay Report Signed Patient: Rosie Martinez Unit #: [id number] : 1950 Age/Sex: 71 / F ADM Date: 06/15/21 Loc: ER Room/Bed: Attending Dr: Ordering Provider/Ordering MD: Daniel Sorenson MD Date of Service: 06/15/21 Procedure(s): XR knee LT 3V* [id number] Accession Number(s): [id number] Report Number: [id number] PROCEDURE INFORMATION: Exam: XR Left Knee Exam date and time: 06/15/2021 7:49 PM Age: 71 years old Clinical indication: Injury or trauma; Fall; Blunt trauma; Knee; Left TECHNIQUE: Imaging protocol: XR Left knee. Views: 3 views. COMPARISON: No relevant prior studies available. FINDINGS: Bones/joints: No acute fractures. No joint space malalignment. Negative for joint effusion. Severe medial compartment joint space loss. Marginal osteophytic spurring at the medial margin of the joint. Soft tissues: Normal. XR/XR knee LT 3V* [id number] IMPRESSION: 1. No acute abnormality. 2. Significant medial compartment primary osteoarthritis changes. Dictated By: Juan Francisco Blanton Signed By: Juan Francisco Blanton Signed Date/Time: 06/15/212024 DD/ 23 EKG Data^: EKG 1: Attestation: I personally reviewed and interpreted this EKG as follows: EKG interpretation date: 06/15/21 EKG interpretation time: 19:19 Interpretation: nsr hr [address] or t wave abnormalities qrs 84 qtc 411 Discharge Plan Discharge Patient Disposition: Home Clinical Impression: Chest pain Knee pain, left Qualifiers: Chronicity: acute Qualified Code(s): M25.562 - Pain in left knee Condition: Stable Prescriptions: No Action valsartan 80 mg tablet 80 mg PO BID Qty: 60 RF: 2 Hold Instructions: hold until follow up with cardiology atorvastatin 40 mg tablet 40 mg PO DAILY RF: 0 indapamide 1.25 mg tablet 1.25 mg PO QAM RF: 0 amlodipine 5 mg tablet 5 mg PO DAILY RF: 0 Hold Instructions: hold until follow up with Louisa Davila clopidogrel 75 mg tablet 75 mg PO DAILY RF: 0 nitroglycerin 0.4 mg tablet, sublingual 0.4 mg SUBLINGUAL Q5M PRN (Reason: Chest Pain) Qty: 25 RF: 3 Vitamin D3 1 cap PO DAILY RF: 0 melatonin 1 tab PO BEDTIME RF: 0 isosorbide mononitrate 30 mg tablet extended release 24 hr 30 mg PO DAILY RF: 0 Hold Instructions: hold until follow up with cardiology carvedilol 25 mg tablet 37.5 mg PO BID RF: 0 triamcinolone acetonide 0.1 % cream See Rx Instructions .ROUTE .COMPLEX RF: 0 Discharge Orders: Discharge ED (Routine); Ordered 06/15/21 Ordered By: Daniel Sorenson Referrals: Silvia Peng MD [Primary Care Provider] - 1-3 days Discharge Diet: Advance as tolerated Discharge Activity: Resume usual activity Patient Instructions: Knee Pain (ED) Coding Level of Care Code ED Ctc Operator for Chg Fwd Exam Comprehensive
[2021-06-15 19:53] VITALS: PULSE 62; RESP 16; O2SAT 99
[2021-06-15 19:55] LABS: Troponin(5th) Baseline 12 ng/L (0-10)
[2021-06-15 19:59] LABS: Alanine Aminotransferase 15 U/L (0-33); Albumin Level 3.8 g/dL (3.5-5.2); Alkaline Phosphatase 146 IU/L (35-105); Anion Gap 12.7 (5-19); Aspartate Amino Transferase 20 U/L (0-32); Blood Urea Nitrogen 12 mg/dL (8-23); Calcium 9.2 mg/dL (8.5-10.5); Carbon Dioxide 25 mmol/L (22-29); Chloride 104 mmol/L (98-107); Creatinine Clr Calc Pharmacy 60.4456; Globulin 1.8 g/dL (1.3-4.6); Glucose 92 mg/dL (65-115); Osmolality Calculated 285 mOsm/kg (285-295); Potassium 3.7 mmol/L (3.5-5.1); Sodium 138 mmol/L (136-145); Total Bilirubin 0.4 mg/dL (0.15-1.2); Total Protein 5.6 g/dL (6.6-8.7)
--- NOTE | 2021-06-15 20:12 | PC.PHAR ---
NEITHER THE PT NOR HER COULD CONFIRM PT'S MEDICATION. NO ONE HELPS THEM. THE PT STATES SHE RARELY TAKES HER MEDICATIONS EXCEPT FOR HER HEART MEDICATION AND HER NITROGLYCERIN . PT COULD NOT IDENTIFY HER HEART MEDICATION. I HIGHLY DOUBT SHE TAKES ANY OF IT REGULARLY.
[2021-06-15] MEDS: hyDRALAzine 20 mg/mL INJ 1 mL 10 MG IVP (20:47)
--- NOTE | 2021-06-15 21:42 | PC.NURSE ---
patient requesting to go home; Dr. Sorenson notified; patient being discharged
== END 2021-06-15 21:47 | disposition home or self-care (01) ==
PROVIDERS: Emergency Provider Emergency Medicine; PCP Family Medicine
DX: R07.9 Chest pain, unspecified (principal); M25.562 Pain in left knee; Z79.02 Long term (current) use of antithrombotics/antiplatelets; I25.10 Atherosclerotic heart disease of native coronary artery without angina pectoris; E78.5 Hyperlipidemia, unspecified; I10 Essential (primary) hypertension; Z87.891 Personal history of nicotine dependence
CPT/HCPCS: 71045; 73562; 80053; 84484; 85025; 96374; 99283; J0360

== ENCOUNTER 2021-06-16 14:24 | Emergency (ER) | payer MEDICARE, OTHER, SELFPAY ==
[2021-06-16 14:31] VITALS: BP 170/68; PULSE 59; RESP 18; TEMP 36.6; O2SAT 97; BMI 29.1
--- NOTE | 2021-06-16 14:40 | XRR_ITS ---
PROCEDURE INFORMATION: Exam: XR Chest Exam date and time: 06/16/2021 2:40 PM Age: 71 years old Clinical indication: Pain; Chest pressure; Additional info: Chest pain TECHNIQUE: Imaging protocol: XR of the chest. Views: 1 view. COMPARISON: CR XR chest 1V portable [id number] 06/15/2021 7:45 PM FINDINGS: Lungs: Unremarkable. No consolidation. Pleural spaces: Unremarkable. No pleural effusion. No pneumothorax. Heart/Mediastinum: Unremarkable. No cardiomegaly. Bones/joints: Unremarkable. XR/XR chest 1V portable [id number] IMPRESSION: Negative for infiltrate
--- NOTE | 2021-06-16 14:40 | ECG_ITS ---
[facility] Test Date: 2021-06-16 Pat Name: Rosie Martinez Department: Room: Gender: Female Web Coordinator: : 1950 Requested By: Pradip Brown Order Number: [id number] Carlos MD: Karime Solano M.D. Measurements Intervals [place] Rate: 61 P: 82 CO: 153 QRS: 28 QRSD: 86 T: 68 QT: 433 QTc: 438 Interpretive Statements SINUS RHYTHM WITH OCCASIONAL ECTOPIC PREMATURE COMPLEXES Compared to ECG 04/17/2021 14:01:01 T-wave abnormality no longer present Electronically Signed On 06-16-2021 19:32:19 CDT by Karime Solano M.D. [id number]
[2021-06-16 15:00] LABS: Basophils # 0.1 10^3/uL (0.0-0.1); Basophils % 0.9 %; Eosinophils # 0.1 10^3/uL (0.0-0.8); Eosinophils % 1.6 %; Hematocrit 37.1 % (37.0-47.0); Hemoglobin 11.3 g/dL (11.5-15.3); Lymphocytes # 0.9 10^3/uL (0.8-4.8); Lymphocytes % 15.3 %; Mean Corpuscular HGB Conc 30.5 g/dL (30.0-36.0); Mean Corpuscular Hemoglobin 25.6 pg (28.0-34.0); Mean Corpuscular Volume 84.1 fL (81-99); Mean Platelet Volume 10.9 fL (7.4-10.4); Monocytes # 0.4 10^3/uL (0.2-0.9); Monocytes % 6.6 %; Neutrophils # 4.35 10^3/uL (1.8-7.7); Neutrophils % 75.4 %; Nucleated Red Blood Cells % 0 %; Platelet Count 239 10^3/cmm (130-400); Red Blood Count 4.41 10^6/uL (4.1-5.3); Red Cell Distribution Width 15.6 % (12.1-15.1); White Blood Count 5.8 10^3/uL (4.0-10.0)
--- NOTE | 2021-06-16 15:07 | W.ED.CHESTPA ---
HPI - Chest Pain General: Chief Complaint: Chest Pain Stated Complaint: Chest Pain Time Seen by Provider: 06/16/21 14:35 History of Present Illness: HPI narrative: 69-year-old female comes in complaining chest pain she has had 5 out of 10. She was in the emergency room last night but then left AMA. She had blood drawn that she was not seen.Sole troponin done last night was 12 but she did not have any follow-up because she had left. Fortunately she was not seen by physician either because she has left. She confirms today. She states she still having chest pain when onto the night it does not radiate it is associated with some shortness of breath. she has had history of heart disease. Patient has a history of known peripheral vascular disease hypertension coronary artery disease she had a previous PTCA with stenting to the mid RCA in 2019. MD complaint: chest pain Pertinent past history: coronary artery disease Onset (ago): hour(s) Timing of current episode: episodic Prior episodes: Yes Onset: during rest Pain location: left chest Pain radiation: none Severity: mild Quality: tightness Relieving factors: nothing Exacerbating factors: nothing Associated symptoms: Deny abdominal pain, diaphoresis, dyspnea, fever(s), leg edema, nausea, palpitations, sense of impending doom, syncope or vomiting Treatment prior to arrival: none Review of Systems Const: Denies: fever(s) or diaphoresis ENMT: Denies: throat pain, ear or mastoid pain, nasal discharge or nasal congestion Card: Denies: palpitations or syncope Resp: Denies: dyspnea GI: Denies: abdominal pain, nausea or vomiting : Denies: flank pain, difficulty voiding, dysuria, urinary frequency or urinary urgency Skin/Breast: Denies: rash or pruritus PFSH ED PFSH: Medical History Abdominal aortic aneurysm (AAA) 3.0 cm to 5.0 cm in diameter in female 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 Hazel, 2014 S/P cataract extraction and insertion of intraocular lens bilateral S/P cervical spinal fusion ACDFF Dr. Dawn 12/07/2015 S/P right coronary artery (RCA) stent placement (~05/2019) Family History Other Cancer Rheumatoid arthritis Denies family history of Chronic kidney disease (CKD) Systemic lupus erythematosus (SLE) in adult Lung disease Hypertension Social History Smoking and tobacco status: former smoker Alcohol intake: current Alcohol intake frequency: holidays/special occasions only History of recent travel: No (12/10/19) Physical Exam Const: COMMON NORMALS: no acute distress GENERAL APPEARANCE: cooperative and comfortable ORIENTATION/CONSCIOUSNESS: Yes awake, Yes oriented to person, Yes oriented to place and Yes oriented to time HENMT: COMMON NORMALS: normocephalic and atraumatic HEAD & SCALP: normocephalic and atraumatic Neck/C-Spine: COMMON NORMALS: no JVD Resp: COMMON NORMALS: normal respiratory effort, No retractions, No use of accessory muscles and clear to auscultation bilaterally AUSCULTATION: clear to auscultation bilaterally Cardio: COMMON NORMALS: no JVD, regular rate, regular rhythm and No murmurs present (Cardio) RATE: regular rate RHYTHM: regular rhythm GI: COMMON NORMALS: Soft to palpation and No hepatosplenomegaly present AUSCULTATION: Yes normoactive bowel sounds PALPATION: Yes Soft to palpation, No Tenderness to palpation present (GI), No Guarding due to palpation present (GI) and Yes No hepatosplenomegaly present Extremity: COMMON NORMALS: normal to inspection, capillary refill normal, no clubbing, cyanosis or edema, no calf tenderness and no pedal edema Neuro: SENSORIUM/ORIENTATION: Yes oriented to person, Yes oriented to place and Yes oriented to time Skin: COMMON NORMALS: no rashes or lesions noted GENERAL SKIN EXAM: no rashes or lesions noted Course Vital Signs: Vital signs: Vital Signs Temperature 97.9 F 06/16/21 14:31 Pulse Rate 72 06/16/21 18:33 Respiratory Rate 18 06/16/21 18:33 Blood Pressure 158/64 06/16/21 18:33 Pulse Oximetry 97 06/16/21 17:10 MDM - Chest Pain Lab Data: Labs: Lab Results 06/16/21 06/16/21 06/16/21 Range/Units 14:53 14:53 14:53 WBC 5.8 (4.0-10.0) 10^3/ uL RBC 4.41 (4.1-5.3) 10^6/u L Hgb 11.3 L (11.5-15.3) g/dL Hct 37.1 (37.0-47.0) % MCV 84.1 (81-99) fL MCH 25.6 L (28.0-34.0) pg MCHC 30.5 (30.0-36.0) g/dL RDW 15.6 H (12.1-15.1) % Plt Count 239 (130-400) 10^3/c mm MPV 10.9 H (7.4-10.4) fL Neut % (Auto) 75.4 % Lymph % (Auto) 15.3 % Edwards % (Auto) 6.6 % Eos % (Auto) 1.6 % Baso % (Auto) 0.9 % Neut # (Auto) 4.35 (1.8-7.7) 10^3/u L Lymph # (Auto) 0.9 (0.8-4.8) 10^3/u L Edwards # (Auto) 0.4 (0.2-0.9) 10^3/u L Eos # (Auto) 0.1 (0.0-0.8) 10^3/u L Baso # (Auto) 0.1 (0.0-0.1) 10^3/u L Nucleated RBC % (a uto) 0 % Nucleated RBCs # 0.0 /100WBC Sodium 141 (136-145) mmol/L Potassium 3.5 (3.5-5.1) mmol/L Chloride 105 (98-107) mmol/L Carbon Dioxide 24 (22-29) mmol/L Anion Gap 15.5 (5-19) BUN 11 (8-23) mg/dL Creatinine 0.9 (0.5-0.9) mg/dL GFR Calculation Not Reportable Glucose 103 (65-115) mg/dL Calculated Osmolal ity 292 (285-295) mOsm/k g Calcium 9.2 (8.5-10.5) mg/dL Total Bilirubin 0.8 (0.15-1.2) mg/dL AST 20 (0-32) U/L ALT 17 (0-33) U/L Alkaline Phosphata se 139 H (35-105) IU/L Creatine Kinase 75 (26-192) U/L Troponin T Baselin e 11 H (0-10) ng/L Troponin T 120 Min [place] (0-10) ng/L Delta Troponin T (0-10) ABS# Total Protein 5.6 L (6.6-8.7) g/dL Albumin 3.6 (3.5-5.2) g/dL Globulin 2.0 (1.3-4.6) g/dL // Range/Units 17:09 WBC (4.0-10.0) 10^3/ uL RBC (4.1-5.3) 10^6/u L Hgb (11.5-15.3) g/dL Hct (37.0-47.0) % MCV (81-99) fL MCH (28.0-34.0) pg MCHC (30.0-36.0) g/dL RDW (12.1-15.1) % Plt Count (130-400) 10^3/c mm MPV (7.4-10.4) fL Neut % (Auto) % Lymph % (Auto) % Edwards % (Auto) % Eos % (Auto) % Baso % (Auto) % Neut # (Auto) (1.8-7.7) 10^3/u L Lymph # (Auto) (0.8-4.8) 10^3/u L Edwards # (Auto) (0.2-0.9) 10^3/u L Eos # (Auto) (0.0-0.8) 10^3/u L Baso # (Auto) (0.0-0.1) 10^3/u L Nucleated RBC % (a uto) % Nucleated RBCs # /100WBC Sodium (136-145) mmol/L Potassium (3.5-5.1) mmol/L Chloride (98-107) mmol/L Carbon Dioxide (22-29) mmol/L Anion Gap (5-19) BUN (8-23) mg/dL Creatinine (0.5-0.9) mg/dL GFR Calculation Glucose (65-115) mg/dL Calculated Osmolal ity (285-295) mOsm/k g Calcium (8.5-10.5) mg/dL Total Bilirubin (0.15-1.2) mg/dL AST (0-32) U/L ALT (0-33) U/L Alkaline Phosphata se (35-105) IU/L Creatine Kinase (26-192) U/L Troponin T Baselin e (0-10) ng/L Troponin T 120 Min [place] 10.38 H (0-10) ng/L Delta Troponin T -0.62 L (0-10) ABS# Total Protein (6.6-8.7) g/dL Albumin (3.5-5.2) g/dL Globulin (1.3-4.6) g/dL Discharge Plan Discharge Patient Disposition: Home Clinical Impression: Atypical chest pain Condition: Stable Prescriptions: No Action valsartan 80 mg tablet 80 mg PO BID Qty: 60 RF: 2 Hold Instructions: hold until follow up with cardiology atorvastatin 40 mg tablet 40 mg PO DAILY RF: 0 indapamide 1.25 mg tablet 1.25 mg PO QAM RF: 0 amlodipine 5 mg tablet 5 mg PO DAILY RF: 0 Hold Instructions: hold until follow up with Louisa Davila clopidogrel 75 mg tablet 75 mg PO DAILY RF: 0 nitroglycerin 0.4 mg tablet, sublingual 0.4 mg SUBLINGUAL Q5M PRN (Reason: Chest Pain) Qty: 25 RF: 3 Vitamin D3 1 cap PO DAILY RF: 0 melatonin 1 tab PO BEDTIME RF: 0 isosorbide mononitrate 30 mg tablet extended release 24 hr 30 mg PO DAILY RF: 0 Hold Instructions: hold until follow up with cardiology carvedilol 25 mg tablet 37.5 mg PO BID RF: 0 triamcinolone acetonide 0.1 % cream See Rx Instructions .ROUTE .COMPLEX RF: 0 Discharge Orders: Discharge ED (Routine); Ordered 06/16/21 Ordered By: Pradip Brown Referrals: Silvia Peng MD [Primary Care Provider] - Discharge Diet: Usual diet Discharge Activity: Limit activity as instructed Patient Instructions: Opioid Safety Activity Restrictions/Additional Instructions: Management will call to set up an appointment for a sestamibi stress test. Continue to take all of your previously prescribed medications. Coding Level of Care Code ED Promotions Executive Producer for Ludmilag Fwd Exam Comprehensive
[2021-06-16 15:23] VITALS: BP 208/85; PULSE 67; RESP 20; O2SAT 97
[2021-06-16 15:34] LABS: Troponin(5th) Baseline 11 ng/L (0-10)
[2021-06-16 15:35] LABS: Alanine Aminotransferase 17 U/L (0-33); Albumin Level 3.6 g/dL (3.5-5.2); Alkaline Phosphatase 139 IU/L (35-105); Anion Gap 15.5 (5-19); Aspartate Amino Transferase 20 U/L (0-32); Blood Urea Nitrogen 11 mg/dL (8-23); Calcium 9.2 mg/dL (8.5-10.5); Carbon Dioxide 24 mmol/L (22-29); Chloride 105 mmol/L (98-107); Creatine Phosphokinase 75 U/L (26-192); Glucose 103 mg/dL (65-115); Osmolality Calculated 292 mOsm/kg (285-295); Potassium 3.5 mmol/L (3.5-5.1); Sodium 141 mmol/L (136-145); Total Bilirubin 0.8 mg/dL (0.15-1.2); Total Protein 5.6 g/dL (6.6-8.7)
--- NOTE | 2021-06-16 16:41 | ECG_ITS ---
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 Measurements Intervals [place] Rate: 60 P: 81 [place]: 156 QRS: 15 QRSD: 85 T: 70 QT: 418 QTc: 418 Interpretive Statements SINUS RHYTHM NONSPECIFIC T-WAVE ABNORMALITY Compared to ECG 06/16/2021 14:40:37 T-wave abnormality now present Electronically Signed On 06-16-2021 19:37:02 CDT by Karime Solano M.D. [id number]
[2021-06-16] MEDS: amlodipine 5 mg Tablet PO (17:07)
[2021-06-16] MEDS: carvedilol 25 mg Tablet PO (17:07)
[2021-06-16] MEDS: carvedilol 12.5 mg Tablet PO (17:07)
[2021-06-16] MEDS: isosorbide mononitrate 20 mg Tablet 30 MG PO (17:08)
[2021-06-16 17:10] VITALS: BP 181/111; PULSE 71; RESP 18; O2SAT 97
[2021-06-16 17:46] LABS: Troponin 5 2HR 10.38 ng/L (0-10)
--- NOTE | 2021-06-16 17:56 | PC.NURSE ---
patient stated felt better, denied any pain, no acute distress noted.
[2021-06-16 17:58] LABS: Troponin 5 2HR Delta -0.62 ABS# (0-10)
[2021-06-16 18:33] VITALS: BP 158/64; PULSE 72; RESP 18
--- NOTE | 2021-06-21 10:38 | DCPLANNER ---
client relationship manager had message to schedule an out patient stress test for patient. client relationship manager faxed order to centralized scheduling, case resolution specialist will call for appointment information.
--- NOTE | 2021-06-26 08:03 | DCPLANNER ---
Patient has a stress test scheduled for Friday, July 16, 2021 at 11:30, centralized scheduling will call patient with appointment information.
--- NOTE | 2021-07-20 12:45 | DCPLANNER ---
Patient had an outpatient stress test scheduled for 07.16.21 - patient did not attend appointment.
== END 2021-06-16 18:35 | disposition home or self-care (01) ==
PROVIDERS: Emergency Provider Family Medicine; PCP Family Medicine
DX: R07.89 Other chest pain (principal); Z79.02 Long term (current) use of antithrombotics/antiplatelets; I25.10 Atherosclerotic heart disease of native coronary artery without angina pectoris; E78.5 Hyperlipidemia, unspecified; I10 Essential (primary) hypertension; Z87.891 Personal history of nicotine dependence
CPT/HCPCS: 71045; 80053; 82550; 84484; 85025; 93005; 99284

== ENCOUNTER 2021-07-03 12:56 | Emergency (ER) | payer MEDICARE, OTHER, SELFPAY ==
[2021-07-03 13:10] VITALS: BP 251/125; PULSE 86; RESP 18; TEMP 36.5; O2SAT 92; BMI 28.3
--- NOTE | 2021-07-03 13:38 | ED_ITS ---
HPI - Fall General: Chief Complaint: Fall Stated Complaint: Fall, pain in head, and Lower etremeities Time Seen by Provider: 07/03/21 13:37 History of Present Illness: HPI Narrative: Patient is a 71-year-old female comes to the ED after having a fall. Patient notes is she fell twice yesterday at home. Both falls occurred outside on a grassy slope. Patient says she fell back in hit the back of her head on the ground. She says that the first time she fell she did have a loss of consciousness. Loss of consciousness was brief. The second time she fell she did not hit her head or lose consciousness. Since fall she is having some right-sided neck pain, headache, dizziness and some mental fog. Patient's is present and says that he has not noticed any change mentally and his since fall. He says she appears to be at her baseline. He also stated that she does have some underlying memory issues. Associated symptoms-after fall: Reports confusion ( brain Fog since fall) and headache(s); Denies abdominal pain, chest pain, hematuria or neck pain Review of Systems Const: Denies: fever(s), chills or fatigue Eyes: Denies: change in vision or eye discomfort ENMT: Denies: throat pain, odynophagia, nasal discharge or nasal congestion Card: Denies: chest pain, palpitations, edema, swelling of feet/ankles, dyspnea on exertion or orthopnea Resp: Denies: dyspnea, productive cough or non-productive cough GI: Denies: abdominal pain, nausea, vomiting, diarrhea, constipation or hematochezia : Denies: flank pain, dysuria or hematuria Musc: Denies: neck pain, back pain or extremity swelling Skin/Breast: Denies: rash or new lesions Neuro: Reports: headache(s), dizziness and confusion ( brain Fog since fall); Denies: numbness in extremities or weakness in extremities PFS ED PFSH: Medical History Abdominal aortic aneurysm (AAA) 3.0 cm to 5.0 cm in diameter in female 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 Hazel, 2014 S/P cataract extraction and insertion of intraocular lens bilateral S/P cervical spinal fusion ACDFF Dr. Dawn 12/07/2015 S/P right coronary artery (RCA) stent placement (~05/2019) Family History Other Cancer Rheumatoid arthritis Denies family history of Chronic kidney disease (CKD) Systemic lupus erythematosus (SLE) in adult Lung disease Hypertension Social History Smoking and tobacco status: former smoker Alcohol intake: current Alcohol intake frequency: holidays/special occasions only History of recent travel: No (12/10/19) Physical Exam Const: COMMON NORMALS: no acute distress and alert GENERAL APPEARANCE: cooperative and comfortable ORIENTATION/CONSCIOUSNESS: Yes oriented to person and Yes oriented to place; not oriented to time HENMT: COMMON NORMALS: normocephalic and atraumatic HEAD & SCALP: normocephalic and atraumatic; no Biggs's sign and no raccoon eyes FACE & SINUS: normal facial exam MOUTH: Normal oral and palatal mucosa present THROAT: posterior oropharynx normal and uvula midline Eye: COMMON NORMALS: Equal, round and reactive pupils present, EOMs intact bilaterally and conjunctivae normal CONJUNCTIVA: Yes conjunctivae normal PUPIL: Yes Equal, round and reactive pupils present Neck/C-Spine: COMMON NORMALS: supple GENERAL: Yes normal visual inspection CERVICAL SPINE: Yes pain with cervical ROM, No Cervical spine tenderness, Yes Paracervical muscle tenderness right and Yes Trapezius muscle tenderness right Resp: COMMON NORMALS: normal respiratory effort, No retractions, No use of accessory muscles and clear to auscultation bilaterally AUSCULTATION: clear to auscultation bilaterally Cardio: COMMON NORMALS: regular rate, regular rhythm, S1 normal heart sound present, S2 normal heart sound present, No gallops present (Cardio), No clicks present (Cardio), No murmurs present (Cardio) and Peripheral pulses 2+ throughout RATE: regular rate RHYTHM: regular rhythm HEART SOUNDS: S1 normal heart sound present and S2 normal heart sound present PERIPHERAL PULSES: Peripheral pulses 2+ throughout GI: COMMON NORMALS: Normal to inspection, nondistended, normoactive bowel sounds present, Soft to palpation, non-tender and no masses PALPATION: Yes Soft to palpation : COMMON NORMALS: Yes no CVA tenderness BLADDER/KIDNEY EXAM: Yes no CVA tenderness Back/Pelvis: COMMON NORMALS: no CVA tenderness Extremity: COMMON NORMALS: normal to inspection Neuro: COURTNEY COMA SCALE: document GCS findings Courtney coma scale eye opening: Spontaneous Courtney coma scale verbal response: Orientated Rosenberg coma scale motor response: Obey commands Rosenberg coma scale total score: 15 COMMON NORMALS: CN's II-XII intact bilaterally, moves all extremities, no focal motor deficits and no sensory deficits noted SENSORIUM/ORIENTATION: Yes alert, Yes oriented to person, Yes oriented to place, No oriented to time and Yes Orientation impaired (Patient struggled with time questions such as year, day of the week.) COORDINATION/BALANCE: [id number] test normal SENSORY EXAM: Yes extremities (Sensation intact) MOTOR EXAM: 5/5 motor strength present throughout COORDINATION: [id number] test normal Skin: GENERAL SKIN EXAM: dry skin Course Vital Signs: Vital signs: Vital Signs Temperature 97.7 F 07/03/21 13:10 Pulse Rate 65 07/03/21 14:48 Respiratory Rate 16 07/03/21 14:48 Blood Pressure 93/55 07/03/21 14:48 Pulse Oximetry 94 07/03/21 14:48 MDM - Fall MDM Narrative: Medical decision making narrative: Patient is a 71-year-old female comes to the ED with concussion symptoms and neck pain after having a fall. Patient says she had brief loss of consciousness. Patient's was present and says that he sees no change in patient's mental status. He did say that patient does have some chronic memory issues. Exam shows a healthy and happy appearing female in no acute distress. Patient is alert and oriented to place and self but struggles with some time questions. She had some right neck muscle tenderness but no cervical spine tenderness. Rest of neuro exam was benign. CT of head showed no acute findings. CT of cervical spine showed no acute findings. Patient diagnosed with a concussion and right-sided neck pain and discharged home. Return to ED precautions given. Follow-up with PCP in 7 to 10 days for reevaluation. Patient understood and agreed with plan. Imaging Data^: CT Head: Attestation: I personally reviewed and interpreted this imaging study as follows: Radiologist's impression: [facility] [address] [place] [address]. [place] [address] CT Scan Report Signed Patient: Rosie Martinez Unit #: [id number] : 1950 Age/Sex: 71 / F ADM Date: 07/03/21 Loc: ER Room/Bed: Attending Dr: Ordering Provider/Ordering MD: Grupo Alatorre Date of Service: 07/03/21 Procedure(s): CT head wo con* [id number] Accession Number(s): [id number] Report Number: [id number] WS: [id number] CT HEAD NONCONTRAST HISTORY: fall and hit head, + LOC TECHNIQUE: Contiguous axial imaging performed through the brain in 2.5 mm imaging. Bone and soft tissue windows. Sagittal and coronal reformats reviewed. All CT scans at [facility] use at least one of these dose optimization techniques: automated exposure control; mA and/or kV adjustment per patient size (includes targeted exams where dose is matched to clinical indication); or iterative reconstruction. DLP: 899.57 mGy.cm COMPARISON: 04/17/2021 No acute intracranial hemorrhage, midline shift or mass effect. Mild atrophy and mild small vessel ischemic disease. No acute interval change. 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 Ventricles: Normal size with no hydrocephalus. Paranasal sinuses: As visualized are clear. Mastoid air cells: Well pneumatized. Calvarium and scalp: Skull is intact with no soft tissue edema or swelling. CT/CT head wo con* [id number] IMPRESSION: 1. No acute intracranial hemorrhage or edema. 2. Atrophy and stable small vessel ischemic disease. Dictated By: Niay Oconnell DO Signed By: Niya Oconnell DO Signed Date/Time: 07/03/21 1411 DD/ [address]: Attestation: I personally reviewed and interpreted this imaging study as follows: Radiologist's impression: [facility] [address] [place] [address]. [place] [address] CT Scan Report Signed Patient: Rosie Martinez Unit #: [id number] : 1950 Age/Sex: 71 / F ADM Date: 07/03/21 Loc: ER Room/Bed: Attending Dr: Ordering Provider/Ordering MD: Grupo Alatorre Date of Service: 07/03/21 Procedure(s): CT cervical spin wo con* [id number] Accession Number(s): [id number] Report Number: [id number] WS: [id number] CT CERVICAL SPINE HISTORY: fall hit head, neck pain TECHNIQUE: Contiguous 2.5 mm axial imaging performed through the entire cervical spine. Sagittal and coronal reformats also performed. All CT scans at [facility] use at least one of these dose optimization techniques: automated exposure control; mA and/or kV adjustment per patient size (includes targeted exams where dose is matched to clinical indication); or iterative reconstruction. DLP: 639.31 mGy.cm COMPARISON: 04/17/2021 Normal craniocervical junction. C1 and C2 are normally aligned and the odontoid is intact. No fractures are identified. Prior anterior cervical fusion at C5-6. C4 anterolisthesis by 4 mm. Mild straightening of the normal lordosis. Bilateral facet joint arthritis. There is moderate to severe central and foraminal stenosis at the C5-6 level. Similar to prior studies with no progression. Bilateral facet joint arthritis narrowing throughout the cervical spine, greatest on the LEFT. Lung apices are clear. CT/CT cervical spin wo con* [id number] IMPRESSION: 1. No acute cervical spine fracture. 2. Prior anterior cervical fusion with interbody spacer is similar to the prior study at C5-6. 3. Facet joint arthritis, multilevel is stable. Dictated By: Niya Oconnell DO Signed By: Niya Oconnell DO Signed Date/Time: 07/03/211414 DD/ 10 Discharge Plan Discharge Patient Disposition: Home Clinical Impression: Neck pain on right side Concussion Qualifiers: Encounter type: initial encounter Loss of consciousness presence/duration: with LOC of 30 min or less Qualified Code(s): S06.0X1A - Concussion with loss of consciousness of 30 minutes or less, initial encounter Condition: Stable Prescriptions: No Action valsartan 80 mg tablet 80 mg PO BID Qty: 60 RF: 2 Hold Instructions: hold until follow up with cardiology atorvastatin 40 mg tablet 40 mg PO DAILY RF: 0 indapamide 1.25 mg tablet 1.25 mg PO QAM RF: 0 amlodipine 5 mg tablet 5 mg PO DAILY RF: 0 Hold Instructions: hold until follow up with Louisa Davila clopidogrel 75 mg tablet 75 mg PO DAILY RF: 0 nitroglycerin 0.4 mg tablet, sublingual 0.4 mg SUBLINGUAL Q5M PRN (Reason: Chest Pain) Qty: 25 RF: 3 Vitamin D3 1 cap PO DAILY RF: 0 melatonin 1 tab PO BEDTIME RF: 0 isosorbide mononitrate 30 mg tablet extended release 24 hr 30 mg PO DAILY RF: 0 Hold Instructions: hold until follow up with cardiology carvedilol 25 mg tablet 37.5 mg PO BID RF: 0 triamcinolone acetonide 0.1 % cream See Rx Instructions .ROUTE .COMPLEX RF: 0 Discharge Orders: Discharge ED (Routine); Ordered 07/03/21 Ordered By: Grupo Alatorre Referrals: Silvia Peng MD [Primary Care Provider] - Discharge Diet: Regular Discharge Activity: Increase activity as tolerated Patient Instructions: Concussion (ED), Minor Head Injury (ED) Activity Restrictions/Additional Instructions: Follow-up with medical provider as directed in 7 to 10 days for reevaluation. Continue taking all home medications as prescribed. Apply cold pack on sore part of neck to help with symptoms. Take [id number] Tylenol for any headaches or pain. Return to the ER or your medical provider if condition worsens. Please read and understand discharge instructions. Thank you for choosing [facility] for your healthcare needs today. Please realize this is an emergency room and that we are providing you with a medical screening exam and this may not be complete and all inclusive of all the testing and or work up that you may need to determine your ailment or severity of your illness. It is very important that you follow up as instructed or that you return to the Emergency Department should you have concerns or if your condition changes or worsens in any way. Coding Level of Care Code ED Secondary Set Up Man for Loulou Fwkenneth Exam Comprehensive
--- NOTE | 2021-07-03 13:47 | CT_ITS ---
WS: [id number] CT CERVICAL SPINE HISTORY: fall hit head, neck pain TECHNIQUE: Contiguous 2.5 mm axial imaging performed through the entire cervical spine. Sagittal and coronal reformats also performed. All CT scans at [facility] use at least one of these do se optimization techniques: automated exposure control; mA and/or kV adjustment per patient size (inc ludes targeted exams where dose is matched to clinical indication); or iterative reconstruction. DLP: 639.31 mGy.cm COMPARISON: 04/17/2021 Normal craniocervical junction. C1 and C2 are normally aligned and the odontoid is intact. No fractur es are identified. Prior anterior cervical fusion at C5-6. C4 anterolisthesis by 4 mm. Mild straighte valeriy of the normal lordosis. Bilateral facet joint arthritis. There is moderate to severe central and foraminal stenosis at the C5-6 level. Similar to prior studies with no progression. Bilateral facet joint arthritis narrowing throughout the cervical spine, greatest on the LEFT. Lung apices are clear. CT/CT cervical spin wo con* [id number] IMPRESSION: 1. No acute cervical spine fracture. 2. Prior anterior cervical fusion with interbody spacer is similar to the prio r study at C5-6. 3. Facet joint arthritis, multilevel is stable.
--- NOTE | 2021-07-03 13:47 | CT_ITS ---
WS: [id number] CT HEAD NONCONTRAST HISTORY: fall and hit head, + LOC TECHNIQUE: Contiguous axial imaging performed through the brain in 2.5 mm imaging. Bone and soft tiss ue windows. Sagittal and coronal reformats reviewed. All CT scans at [facility] use at le ast one of these dose optimization techniques: automated exposure control; mA and/or kV adjustment pe r patient size (includes targeted exams where dose is matched to clinical indication); or iterative r econstruction. DLP: 899.57 mGy.cm COMPARISON: 04/17/2021 No acute intracranial hemorrhage, midline shift or mass effect. Mild atrophy and mild small vessel ischemic disease. No acute interval change. 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 Ventricles: Normal size with no hydrocephalus. Paranasal sinuses: As visualized are clear. Mastoid air cells: Well pneumatized. Calvarium and scalp: Skull is intact with no soft tissue edema or swelling. CT/CT head wo con* [id number] IMPRESSION: 1. No acute intracranial hemorrhage or edema. 2. Atrophy and stable small vessel ischemic disease.
[2021-07-03 14:34] VITALS: BP 93/55; PULSE 65; RESP 16; O2SAT 94
[2021-07-03 14:48] VITALS: BP 93/55; PULSE 65; RESP 16; O2SAT 94
== END 2021-07-03 14:59 | disposition home or self-care (01) ==
PROVIDERS: Emergency Provider Physician Assistant; PCP Family Medicine
DX: S06.0X1A Concussion with loss of consciousness of 30 minutes or less, initial encounter (principal); M54.2 Cervicalgia; Z79.02 Long term (current) use of antithrombotics/antiplatelets; I25.10 Atherosclerotic heart disease of native coronary artery without angina pectoris; E78.5 Hyperlipidemia, unspecified; I10 Essential (primary) hypertension; Z87.891 Personal history of nicotine dependence; W19.XXXA Unspecified fall, initial encounter
CPT/HCPCS: 70450; 72125; 99282

== ENCOUNTER 2021-07-24 13:00 | Emergency (ER) | payer MEDICARE, OTHER, SELFPAY ==
[2021-07-24 14:00] VITALS: PULSE 86; RESP 18; TEMP 36.5; O2SAT 95
--- NOTE | 2021-07-24 14:44 | W.ED.EXTPRO ---
HPI - Extremity Problem General: Chief complaint: Extremity Injury, Lower Stated complaint: LLE PAIN/SWELLING Time Seen by Provider: 07/24/21 14:36 History of Present Illness: HPI Narrative: Patient is a 71-year-old female comes to the ED with left knee pain, headache and neck pain after fall. Fall occurred 2 days ago. Patient says she was walking outside felt a little dizzy and lost balance and fell. She states that she fell back and hit her head on concrete. Endorses loss of consciousness. Since fall she has some neck pain and headache as well. She reports the headache is mild and does say that she has some tenderness on the back right occipital region of scalp. Denies any neuro symptoms such as vision changes, numbness tingling or weakness to face or extremities. She also has some acute on chronic left knee pain. She says she has arthritis in her left knee and is needing to get it replaced. After fall knee is more painful and swollen. She is able to bear weight on left knee, but later in the day her knee pain gets worse. Patient is on a blood thinner. Patient also takes blood pressure medications and states that she does not always take them because she does not like taking pills. Patient did not take her blood pressure meds today or yesterday. Denies any chest pain, shortness of breath, fever, chills, nausea/vomiting, bladder or bowel symptoms. Associated symptoms: Deny chest pain, fever(s) or rash Review of Systems Const: Denies: fever(s), chills or fatigue Eyes: Denies: change in vision or eye discomfort ENMT: Denies: throat pain, odynophagia, nasal discharge or nasal congestion Card: Denies: chest pain, palpitations, edema, swelling of feet/ankles, dyspnea on exertion or orthopnea Resp: Denies: dyspnea, productive cough or non-productive cough GI: Denies: abdominal pain, nausea, vomiting, diarrhea, constipation or hematochezia : Denies: flank pain, dysuria or hematuria Musc: Reports: neck pain, extremity pain (Left knee) and extremity swelling (Left knee); Denies: back pain Skin/Breast: Denies: rash or new lesions Neuro: Reports: headache(s); Denies: numbness in extremities or weakness in extremities PFS ED PFSH: Medical History Abdominal aortic aneurysm (AAA) 3.0 cm to 5.0 cm in diameter in female 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 Hazel, 2013 S/P cataract extraction and insertion of intraocular lens bilateral S/P cervical spinal fusion ACDFF Dr. Dawn 12/07/2015 S/P right coronary artery (RCA) stent placement (~05/2019) Family History Other Cancer Rheumatoid arthritis Denies family history of Chronic kidney disease (CKD) Systemic lupus erythematosus (SLE) in adult Lung disease Hypertension Social History Smoking and tobacco status: former smoker Alcohol intake: current Alcohol intake frequency: holidays/special occasions only History of recent travel: No (12/10/19) Physical Exam Const: COMMON NORMALS: no acute distress, patient oriented x3 and alert GENERAL APPEARANCE: cooperative and comfortable HENMT: COMMON NORMALS: normocephalic HEAD & SCALP: normocephalic and scalp tenderness (Right occipital region); no Biggs's sign, no contusion, no hematoma, no laceration and no raccoon eyes MOUTH: Normal oral and palatal mucosa present THROAT: posterior oropharynx normal and uvula midline Eye: COMMON NORMALS: Equal, round and reactive pupils present, EOMs intact bilaterally and conjunctivae normal GENERAL EYE: appearance normal, both eyes and all related structures CONJUNCTIVA: Yes conjunctivae normal PUPIL: Yes Equal, round and reactive pupils present Neck/C-Spine: COMMON NORMALS: supple GENERAL: Yes normal visual inspection Resp: COMMON NORMALS: normal respiratory effort, No retractions, No use of accessory muscles and clear to auscultation bilaterally AUSCULTATION: clear to auscultation bilaterally Cardio: COMMON NORMALS: regular rate, regular rhythm, S1 normal heart sound present, S2 normal heart sound present, No gallops present (Cardio), No clicks present (Cardio), No murmurs present (Cardio) and Peripheral pulses 2+ throughout RATE: regular rate RHYTHM: regular rhythm HEART SOUNDS: S1 normal heart sound present and S2 normal heart sound present PERIPHERAL PULSES: Peripheral pulses 2+ throughout GI: COMMON NORMALS: Normal to inspection, nondistended, normoactive bowel sounds present, Soft to palpation, non-tender and no masses PALPATION: Yes Soft to palpation : COMMON NORMALS: Yes no CVA tenderness BLADDER/KIDNEY EXAM: Yes no CVA tenderness Back/Pelvis: COMMON NORMALS: no CVA tenderness Extremity: LEFT LOWER EXTREMITY: Yes knee joint Left knee: Yes inspection (No deformity noted. Mild to moderate swelling in left knee), Yes palpation (Tender) and Yes ROM (full with some pain doing flexion) Neuro: COMMON NORMALS: patient oriented x3, CN's II-XII intact bilaterally, moves all extremities, no focal motor deficits and no sensory deficits noted SENSORIUM/ORIENTATION: Yes alert SENSORY EXAM: Yes extremities (Intact to soft touch) MOTOR EXAM: 5/5 motor strength present throughout Skin: GENERAL SKIN EXAM: dry skin Course Vital Signs: Vital signs: Vital Signs Temperature 97.7 F 07/24/21 14:00 Pulse Rate 60 07/24/21 18:27 Respiratory Rate 15 07/24/21 18:27 Blood Pressure 187/96 07/24/21 18:27 Pulse Oximetry 94 07/24/21 18:27 MDM - Extremity (Nontraumatic) MDM Narrative: Medical decision making narrative: Patient is a 71-year-old female comes to the ED ED after a fall. Fall occurred 2 days ago. She is complaining of having left knee pain, headache and neck pain. She does endorse having some loss of consciousness after fall. Patient is on a blood thinner as well. Exam shows a nontoxic and healthy-appearing 71-year-old female that is in no acute distress. Neuro exam normal. She has some tenderness to the right occipital region of scalp. She also has some tenderness on palpation of the medial lateral aspect of knee. Patient says she is able to weight-bear, but after being on her feet for a while the knee starts getting worse towards the end of the day. CT of head and cervical spine showed no acute findings. Left knee x-ray showed no acute fractures or findings. EKG showed normal sinus rhythm, 67 bpm, no ST segment elevation or depression seen. Patient's blood pressure is elevated at 231/111. The rest of the vitals are unremarkable. I discussed with patient about her blood pressure medications and she states she does not like taking pills so she has not taken him in the past 2 days. I stressed with her the importance of taking her blood pressure meds daily as prescribed to help control her blood pressure I discussed with her the risks of not taking her blood pressure meds and having elevated blood pressure. She understood risk. I have placed an order with case management for patient to be referred to see your sales representative sales manager to be reevaluated in to discuss/reassess hypertension meds. Patient was given a dose of Klonopin while here in the ED and p.o. hydralazine as well to bring her blood pressure down. Her blood pressure dropped down to 187/96 at time of discharge. Patient diagnosed with fall, headache, neck pain and hypertensive urgency. Once again stressed with patient the importance of taking her blood pressure medications before discharge and told her to check her blood pressure multiple times throughout the day for the next couple days to monitor blood pressure changes. I told her the bilingual case manager will be contacting her in the next several days to set up an appointment with the sales representative sales manager. Return ED precautions given. Patient understood and agreed with plan. Imaging Data^: Xray Ortho: Attestation: I personally reviewed and interpreted this imaging study as follows: Radiologist's impression: [address] [address] XRay Report Signed Patient: Rosie Martinez Unit #: [id number] : 1950 Age/Sex: 71 / F ADM Date: 07/24/21 Loc: ER Room/Bed: Attending Dr: Ordering Provider/Ordering MD: Grupo Alatorre Date of Service: 07/24/21 Procedure(s): XR knee LT 3V* [id number] Accession Number(s): [id number] Report Number: [id number] WS: [email or web address] Exam: XR knee LT 3V* [id number] Date/Time of Exam: 07/24/2021 2:45 PM Reason For Exam: fall injury 2 days ago. swelling and painful Comparison 06/15/2021. No acute fracture or dislocation. Moderately advanced degenerative change of the medial joint compartment. Minimal effusion in the suprapatellar bursa. Degenerative change of the posterior patella. XR/XR knee LT 3V* [id number] IMPRESSION: 1. Degenerative changes as noted above. 2. Minimal joint effusion. 3. No fracture. Dictated By: Russ Duff DO Signed By: Russ Duff DO Signed Date/Time: 07/24/21 1505 DD/ 1502 CT Head: Attestation: I personally reviewed and interpreted this imaging study as follows: Radiologist's impression: [address] [address] [address] Scan Report Signed Patient: Rosie Martinez Unit #: [id number] : 1950 Age/Sex: 71 / F ADM Date: 07/24/21 Loc: ER Room/Bed: Attending Dr: Ordering Provider/Ordering MD: Grupo Alatorre Date of Service: 07/24/21 Procedure(s): CT head wo con* [id number] Accession Number(s): [id number] Report Number: [id number] WS: [email or web address] Comparison 07/03/2021. Exam: CT head wo con* [id number] Date/Time of Exam: 07/24/2021 3:23 PM Reason For Exam: fall and hit back of head 2 days ago, SCHMIDT DLP: 858.[address] scans at [facility] use at least one of these dose optimization techniques: automated exposure control; mA and/or kV adjustment per patient size (includes targeted exams where dose is matched to clinical indication); or iterative reconstruction. Comparison 07/03/2021. No sign of acute intracranial bleed or space-occupying mass. Microvascular ischemic change in the cerebral white matter substance. The ventricles and basal cisterns are normal in size. No extra-axial fluid collections are seen. The skull is intact. The mastoids and facial sinuses are clear. CT/CT head wo con* [id number] IMPRESSION: 1. No sign of acute intracranial bleed or space-occupying mass. 2. Diffuse atrophy and microvascular ischemic changes. Stable exam. Dictated By: Russ Duff DO Signed By: Russ Duff DO Signed Date/Time: 07/24/21 1544 DD/ [address]: Attestation: I personally reviewed and interpreted this imaging study as follows: Radiologist's impression: [address] [place] [address] CT Scan Report Signed Patient: Rosie Martinez Unit #: [id number] : 1950 Age/Sex: 71 / F ADM Date: 07/24/21 Loc: ER Room/Bed: Attending Dr: Ordering Provider/Ordering MD: Grupo Alatorre Date of Service: 07/24/21 Procedure(s): CT cervical spin wo con* [id number] Accession Number(s): [id number] Report Number: [id number] WS: [email or web address] Exam: CT cervical spin wo con* [id number] Date/Time of Exam: 07/24/2021 3:23 PM Reason For Exam: fall 2 days ago and hit head. has neck pain DLP: 440.[address] scans at [facility] use at least one of these dose optimization techniques: automated exposure control; mA and/or kV adjustment per patient size (includes targeted exams where dose is matched to clinical indication); or iterative reconstruction. Comparison 07/03/2021. The C-spine is evaluated in the axial plane with sagittal and coronal reformatted images. No acute fracture or dislocation. There is anterior fusion at C5-6. The fusion is in satisfactory alignment with a disc spacer. Facet arthropathy at all levels. Mild central canal stenosis at the C5 level. Mild degenerative anterolisthesis of C4 on C5. Bilateral foraminal stenosis at C4-5 and C5-6. Right foraminal stenosis at C3-4. Normal paraspinal soft tissues. 2 cm low-attenuation nodule in the left thyroid lobe that may extend into the isthmus. This may be a colloid cyst. The lung apices are clear. CT/CT cervical spin wo con* [id number] IMPRESSION: 1. No acute fracture or malalignment. 2. Stable-appearing anterior fusion at C5-6. 3. Mild central canal stenosis at C5. Bilateral neural foraminal stenosis at C4-5 and C5-6. Right neural foraminal stenosis at C3-4. 4. Additional nonacute findings as detailed above. Dictated By: Russ Duff DO Signed By: Russ Duff DO Signed Date/Time: 07/24/21 1554 DD/ 1545 EKG Data^: EKG 1: Attestation: I personally reviewed and interpreted this EKG as follows: EKG interpretation date: 07/24/21 Interpretation: Normal sinus rhythm, 67 bpm, no ST segment elevation or depression seen. Discharge Plan Discharge Patient Disposition: Home Clinical Impression: Neck pain, Asymptomatic hypertensive urgency Fall as cause of accidental injury at home as place of occurrence Qualifiers: Encounter type: initial encounter Qualified Code(s): W19.XXXA - Unspecified fall, initial encounter Headache Qualifiers: Headache type: post-traumatic Headache chronicity pattern: acute headache Intractability: not intractable Qualified Code(s): G44.319 - Acute post-traumatic headache, not intractable Condition: Stable Prescriptions: No Action valsartan 80 mg tablet 80 mg PO BID Qty: 60 RF: 2 Hold Instructions: hold until follow up with cardiology atorvastatin 40 mg tablet 40 mg PO DAILY RF: 0 indapamide 1.25 mg tablet 2.5 mg PO QAM RF: 0 amlodipine 5 mg tablet 5 mg PO DAILY RF: 0 Hold Instructions: hold until follow up with Louisa Davila clopidogrel 75 mg tablet 75 mg PO DAILY RF: 0 nitroglycerin 0.4 mg tablet, sublingual 0.4 mg SUBLINGUAL Q5M PRN (Reason: Chest Pain) Qty: 25 RF: 3 cholecalciferol (vitamin D3) [Vitamin D3] 25 mcg (1,000 unit) Capsule 25 mcg PO DAILY Qty: 0 RF: 0 melatonin 1 tab PO BEDTIME RF: 0 isosorbide mononitrate 30 mg tablet extended release 24 hr 30 mg PO DAILY RF: 0 Hold Instructions: hold until follow up with cardiology carvedilol 25 mg tablet 37.5 mg PO BID RF: 0 triamcinolone acetonide 0.1 % cream See Rx Instructions .ROUTE .COMPLEX RF: 0 Discharge Orders: Discharge ED (Routine); Ordered 07/24/21 Ordered By: Grupo Alatorre Referrals: Silvia Peng MD [Primary Care Provider] - Discharge Diet: Regular Discharge Activity: Increase activity as tolerated Patient Instructions: Fall Prevention for Older Adults (ED), Acute Headache (ED), Hypertensive Crisis (ED), Hypertension (ED) Activity Restrictions/Additional Instructions: Follow-up with medical provider as directed. Case management will be contacting you in the next several days to set up an appointment with the cardiology clinic. Monitor your blood pressures at home multiple times throughout the day. Remember to take all your medications as prescribed. Return to the ER or your medical provider if condition worsens. Please read and understand discharge instructions. Thank you for choosing [facility] for your healthcare needs today. Please realize this is an emergency room and that we are providing you with a medical screening exam and this may not be complete and all inclusive of all the testing and or work up that you may need to determine your ailment or severity of your illness. It is very important that you follow up as instructed or that you return to the Emergency Department should you have concerns or if your condition changes or worsens in any way. Coding Level of Care Code ED Payment Poster for Ludmilag Fwd Exam Comprehensive
--- NOTE | 2021-07-24 14:45 | XR_ITS ---
WS: [email or web address] Exam: XR knee LT 3V* [id number] Date/Time of Exam: 07/24/2021 2:45 PM Reason For Exam: fall injury 2 days ago. swelling and painful Comparison 06/15/2021. No acute fracture or dislocation. Moderately advanced degenerative change of the medial joint compart ment. Minimal effusion in the suprapatellar bursa. Degenerative change of the posterior patella. XR/XR knee LT 3V* [id number] IMPRESSION: 1. Degenerative changes as noted above. 2. Minimal joint effusion. 3. No fracture.
--- NOTE | 2021-07-24 14:57 | CT_ITS ---
WS: [email or web address] Exam: CT cervical spin wo con* [id number] Date/Time of Exam: 07/24/2021 3:23 PM Reason For Exam: fall 2 days ago and hit head. has neck pain DLP: 440.[address] scans at use at least one of these dose optimization techniques: automat ed exposure control; mA and/or kV adjustment per patient size (includes targeted exams where dose is matched to clinical indication); or iterative reconstruction. Comparison 07/03/2021. The C-spine is evaluated in the axial plane with sagittal and coronal reformatted images. No acute fracture or dislocation. There is anterior fusion at C5-6. The fusion is in satisfactory ali gnment with a disc spacer. Facet arthropathy at all levels. Mild central canal stenosis at the C5 lev el. Mild degenerative anterolisthesis of C4 on C5. Bilateral foraminal stenosis at C4-5 and C5-6. Rig ht foraminal stenosis at C3-4. Normal paraspinal soft tissues. 2 cm low-attenuation nodule in the lef t thyroid lobe that may extend into the isthmus. This may be a colloid cyst. The lung apices are aniceto r. CT/CT cervical spin wo con* [id number] IMPRESSION: 1. No acute fracture or malalignment. 2. Stable-appearing anterior fusion at C5-6. 3. Mild central canal stenosis at C5. Bilateral neural foraminal stenosis at C4 -5 and C5-6. Right neural foraminal stenosis at C3-4. 4. Additional nonacute findings as detailed above.
--- NOTE | 2021-07-24 14:57 | CT_ITS ---
WS: [email or web address] Comparison 07/03/2021. Exam: CT head wo con* [id number] Date/Time of Exam: 07/24/2021 3:23 PM Reason For Exam: fall and hit back of head 2 days ago, [place]IDT DLP: 858.[address] scans at [facility] use at least one of these dose optimization techniques: automat ed exposure control; mA and/or kV adjustment per patient size (includes targeted exams where dose is matched to clinical indication); or iterative reconstruction. Comparison 07/03/2021. No sign of acute intracranial bleed or space-occupying mass. Microvascular ische jeronimo change in the cerebral white matter substance. The ventricles and basal cisterns are normal in si ze. No extra-axial fluid collections are seen. The skull is intact. The mastoids and facial sinuses a re clear. CT/CT head wo con* [id number] IMPRESSION: 1. No sign of acute intracranial bleed or space-occupying mass. 2. Diffuse atrophy and microvascular ischemic changes. Stable exam.
[2021-07-24 16:08] VITALS: BP 231/111
[2021-07-24] MEDS: cloNIDine 0.1 mg Tablet 0.2 MG PO (16:08)
[2021-07-24 16:21] VITALS: BP 231/111; PULSE 78; O2SAT 97
--- NOTE | 2021-07-24 16:45 | ECG_ITS ---
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 Measurements Intervals [place] Rate: 67 P: 75 IL: 152 QRS: -8 QRSD: 83 T: 51 QT: 415 QTc: 438 Interpretive Statements SINUS RHYTHM Compared to ECG 06/16/2021 16:30:40 T-wave abnormality no longer present Electronically Signed On 07-24-2021 16:59:38 CDT by Jamie Ordaz M.D. [email or web address]
[2021-07-24] MEDS: hyDRALAzine 10 mg Tablet PO (17:42)
[2021-07-24 18:27] VITALS: BP 187/96; PULSE 60; RESP 15; O2SAT 94
--- NOTE | 2021-07-25 09:47 | DCPLANNER ---
manager internship had message to schedule a follow up appointment for patient with heart care. manager internship called heart care, spoke with Leila, gave clinic patients information. A follow up appointment was scheduled for , July 26, 2021 at 2:15 with SERVICE MECHANIC, Louisa Davila. manager internship called patient and gave patient the appointment information.
--- NOTE | 2021-07-27 08:20 | DCPLANNER ---
Patient had a follow up appointment scheduled for 07.26.21 with Heart care - patient did not attend appointment.
== END 2021-07-24 18:29 | disposition home or self-care (01) ==
PROVIDERS: Emergency Provider Physician Assistant; PCP Family Medicine
DX: M54.2 Cervicalgia (principal); I16.0 Hypertensive urgency; G44.319 Acute post-traumatic headache, not intractable; E78.5 Hyperlipidemia, unspecified; I10 Essential (primary) hypertension; I25.10 Atherosclerotic heart disease of native coronary artery without angina pectoris; Z87.891 Personal history of nicotine dependence
CPT/HCPCS: 70450; 72125; 73562; 93005; 99283

== ENCOUNTER 2021-09-09 10:43 | Observation (INO) | payer MEDICARE, OTHER, SELFPAY ==
[2021-09-09] VITALS (90 sets, daily range): BP systolic 98–239; BP diastolic 42–139; PULSE 60–97; RESP 10–27; TEMP 36.6–36.8; O2SAT 91–99; BMI 21.6; BMI 16.0
--- NOTE | 2021-09-09 10:44 | XRR_ITS ---
PROCEDURE INFORMATION: Exam: XR Chest Exam date and time: 09/09/2021 10:44 AM Age: 71 years old Clinical indication: Pain; Chest pressure; Additional info: Chest pain TECHNIQUE: Imaging protocol: XR of the chest. Views: 1 view. COMPARISON: CR XR chest 1V portable [id number] 06/16/2021 2:54 PM FINDINGS: Lungs: Unremarkable. No consolidation. Pleural spaces: Unremarkable. No pleural effusion. No pneumothorax. Heart/Mediastinum: Unremarkable. No cardiomegaly. Bones/joints: Unremarkable. XR/XR chest 1V portable [id number] IMPRESSION: No acute findings. Radiation Dose CTDIVOL = (mGy): DLP = (mGy-cm)
--- NOTE | 2021-09-09 10:44 | ECG_ITS ---
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 Measurements Intervals [place] Rate: 65 P: 78 VT: 160 QRS: 11 QRSD: 96 T: 71 QT: 426 QTc: 445 Interpretive Statements SINUS RHYTHM POSSIBLE LEFT ATRIAL ENLARGEMENT [-0.1mV P-WAVE IN V1/V2] Compared to ECG 09/09/2021 11:38:47 Myocardial infarct finding no longer present Electronically Signed On 09-09-2021 23:19:15 CDT by Jamie Ordaz M.D. [id number]
--- NOTE | 2021-09-09 11:07 | ED_ITS ---
HPI - Chest Pain General: Chief Complaint: Chest Pain Stated Complaint: CP Time Seen by Provider: 09/09/21 11:07 History of Present Illness: HPI narrative: Ms. Martinez is a 71-year-old lady with significant past medical history of hypertension, hyperlipidemia, CAD status post PCI, AAA who presents emergency department chest pain. She reports symptom onset at rest at about 8 AM today. She has substernal moderate intensity aching without radiation. Mild associated shortness of breath. No other typical cardiac features. Of note the patient is markedly hypertensive and reports that she was on vacation and has been out of her medication for a number of days. This includes nitroglycerin. She does not have chest pain typically and has not had chest pain since her PCI, chest pain today feels similar to prior to PCI. No other specific changes in health, infectious symptoms, exacerbating or alleviating factors identified. Review of Systems General: Reports: 10 or more systems reviewed and unremarkable except in HPI and below PFSH ED PFSH: Medical History (Updated 09/09/21 @ 16:05 by Tamera Jeffers MD) Abdominal aortic aneurysm (AAA) 3.0 cm to 5.0 cm in diameter in female 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 Hazel, 2013 S/P cataract extraction and insertion of intraocular lens bilateral S/P cervical spinal fusion ACDFF Dr. Dawn 12/07/2015 S/P right coronary artery (RCA) stent placement (~05/2019) Family History Other Cancer Rheumatoid arthritis Denies family history of Chronic kidney disease (CKD) Systemic lupus erythematosus (SLE) in adult Lung disease Hypertension Social History Smoking and tobacco status: former smoker Alcohol intake: current Alcohol intake frequency: holidays/special occasions only History of recent travel: No (12/10/19) Physical Exam Narrative: EXAM NARRATIVE: GENERAL/CONSTITUTIONAL -chronically ill-appearing. No acute distress. Eyes - PERRL, no conjunctival injection ENMT - Atraumatic external nose and ears. Moist mucous membranes NECK - supple. trachea midline CARDIOVASCULAR - regular rate and rhythm. Peripheral pulses 2+ and equal RESPIRATORY -clear to auscultation bilaterally. No retractions or accessory muscle use. ABDOMEN/GI - Nontender/Nondistended. No tenderness to percussion or evidence of peritonitis MSK - Extremities without obvious deformity or tenderness to palpation SKIN - Warm, Dry NEURO - alert and appropriately oriented. Moves all extremities equally. Course ED course: - Patient was seen and evaluated by me at bedside - Patient placed on cardiac monitors, IV access obtained - Initial evaluation notable for mildly ill appearance, no acute distress. Blood pressure elevated - Labs notable for no acute abnormality to explain symptoms. Delta troponin negative - Imaging notable for no acute finding to explain patient's symptoms. Given history of known AAA and abdominal pain associated with chest pain CT imaging was warranted. No acute finding, initial read did not discuss comparison to prior and at time of admission [facility] addendum still pending. -Despite multiple antihypertensive dosage little improvement in patient's blood pressure - Upon serial reexamination after treatment the patient was similar - Based on patient history, evaluation, labs, and imaging as interpreted the most likely cause of the patient's condition is unclear - The results of ED evaluation were discussed with the patient including plan for admission due to requirement for level of care not available if discharged to prevent significant worsening/deterioration. - Hospitalist service contacted and agreed admit the patient. Upon their evaluation it was clarified that, despite significant other being at bedside during initial history and not providing additional information, that the sarah lujan was not recently on vacation and she endorsed. As such head CT ordered. - Patient was admitted without further deterioration or significant events. Vital Signs: Vital signs: Vital Signs Temperature 97.9 F 09/11/21 06:00 Pulse Rate 57 L 09/11/21 06:00 Respiratory Rate 26 H 09/10/21 20:04 Blood Pressure 144/67 09/11/21 15:55 Pulse Oximetry 95 09/11/21 06:00 MDM - Chest Pain Medical Records: Attestation: I reviewed the patient's medical records. Lab Data: Attestation: I reviewed the patient's lab results. Labs: Lab Results 09/09/21 09/09/21 09/09/21 11:35 11:35 11:35 WBC 5.9 10^3/uL 10^3/ uL (4.0-10.0) RBC 4.82 10^6/uL 10^6 /uL (4.1-5.3) Hgb 12.4 g/dL g/dL (11.5-15.3) Hct 39.5 % % (37.0-47.0) MCV 82.0 fl fl (81-99) MCH 25.7 pg L pg (28.0-34.0) MCHC 31.4 g/dL g/dL (30.0-36.0) RDW 15.8 % H % (12.1-15.1) Plt Count 291 10^3/cmm 10^3 /cmm (130-400) MPV 9.8 fL fL (7.4-10.4) Neut % (Auto) 66.2 % % Lymph % (Auto) 20.1 % % Schley % (Auto) 10.0 % % Eos % (Auto) 2.7 % % Baso % (Auto) 0.8 % % Neut # (Auto) 3.91 10^3/uL 10^3 /uL (1.8-7.7) Lymph # (Auto) 1.2 10^3/uL 10^3/ uL (0.8-4.8) Schley # (Auto) 0.6 10^3/uL 10^3/ uL (0.2-0.9) Eos # (Auto) 0.2 10^3/uL 10^3/ uL (0.0-0.8) Baso # (Auto) 0.1 10^3/uL 10^3/ uL (0.0-0.1) Nucleated RBC % (a uto) 0 % % Nucleated RBCs # 0.0 /100WBC /100W BC Sodium 138 mmol/L mmol/L (136-145) Potassium 3.3 mmol/L L mmol /L (3.5-5.1) Chloride 101 mmol/L mmol/L (98-107) Carbon Dioxide 27 mmol/L mmol/L (22-29) Anion Gap 13.3 (5-19) BUN 9 mg/dL mg/dL (8-23) Creatinine 0.7 mg/dL mg/dL (0.5-0.9) GFR Calculation Not Reportable Glucose 99 mg/dL mg/dL (65-115) Calculated Osmolal ity 285 mOsm/kg mOsm/ kg (285-295) Calcium 9.4 mg/dL mg/dL (8.5-10.5) Total Bilirubin 0.6 mg/dL mg/dL (0.15-1.2) AST 21 U/L U/L (0-32) ALT 17 U/L U/L (0-33) Alkaline Phosphata se 138 IU/L H IU/L (35-105) Troponin T Baselin e 15 ng/L H ng/L (0-10) Troponin T 120 Min [place] Troponin T Total Protein 6.3 g/dL L g/dL (6.6-8.7) Albumin 3.8 g/dL g/dL (3.5-5.2) Globulin 2.5 g/dL g/dL (1.3-4.6) Vitamin B12 Procalcitonin TSH SARS-CoV-2 Ag (Rap id) 09/09/21 09/09/21 09/09/21 11:35 11:35 13:17 WBC RBC Hgb Hct MCV MCH MCHC RDW Plt Count MPV Neut % (Auto) Lymph % (Auto) Schley % (Auto) Eos % (Auto) Baso % (Auto) Neut # (Auto) Lymph # (Auto) Schley # (Auto) Eos # (Auto) Baso # (Auto) Nucleated RBC % (a uto) Nucleated RBCs # Sodium Potassium Chloride Carbon Dioxide Anion Gap BUN Creatinine GFR Calculation Glucose Calculated Osmolal ity Calcium Total Bilirubin AST ALT Alkaline Phosphata se Troponin T Baselin e Troponin T 120 Min [place] 13.35 ng/L H ng/L (0-10) Delta Troponin T -1.65 ABS# L ABS# (0-10) Total Protein Albumin Globulin Vitamin B12 817 pg/mL pg/mL (232-1245) Procalcitonin 0.06 ng/mL ng/mL (0-0.5) TSH 0.71 uIU/mL uIU/m L (0.27-4.20) SARS-CoV-2 Ag (Rap id) 09/09/21 14:22 WBC RBC Hgb Hct MCV MCH MCHC RDW Plt Count MPV Neut % (Auto) Lymph % (Auto) Schley % (Auto) Eos % (Auto) Baso % (Auto) Neut # (Auto) Lymph # (Auto) Schley # (Auto) Eos # (Auto) Baso # (Auto) Nucleated RBC % (a uto) Nucleated RBCs # Sodium Potassium Chloride Carbon Dioxide Anion Gap BUN Creatinine GFR Calculation Glucose Calculated Osmolal ity Calcium Total Bilirubin AST ALT Alkaline Phosphata se Troponin T Baselin e Troponin T 120 Min [place] Troponin T Total Protein Albumin Globulin Vitamin B12 Procalcitonin TSH SARS-CoV-2 Ag (Rap id) Negative (Negative) EKG Data^: EKG 1: Attestation: I personally reviewed and interpreted this EKG as follows: EKG interpretation date: 09/09/21 EKG interpretation time: 11:03 Interpretation: Twelve-lead EKG shows a regular rhythm at a rate of 75. AR interval 159, QRS duration 76, QTc 416. Normal axis. Interpretation: Sinus rhythm. PVC. EKG 2: Attestation: I personally reviewed and interpreted this EKG as follows: EKG interpretation date: 09/09/21 EKG interpretation time: 11:45 Interpretation: Twelve-lead EKG shows a regular sinus rhythm at a rate of 72. AR interval 164, QRS duration 73, QTc 408. Normal axis. Interpretation: Sinus rhythm. Similar to prior EKG 3: Attestation: I personally reviewed and interpreted this EKG as follows: EKG interpretation date: 09/09/21 EKG interpretation time: 13:18 Interpretation: Twelve-lead EKG shows a regular sinus rhythm at a rate of 65 AR interval 160, QRS duration 96, QTc 438 Normal axis Interpretation: Sinus rhythm, similar to prior. Discharge Plan Discharge Patient Disposition: Admitted As Inpatient Admit Provider: Tamera Jeffers Condition: Stable Discharge Diet: Cardiac and Low Salt Discharge Activity: Resume usual activity Coding Level of Care Code ED Sports Umpire for g Adair
[2021-09-09] MEDS: nitroglycerin 0.4 mg sublingual Tablet SUBLINGUAL (11:43)
[2021-09-09 11:46] LABS: Basophils # 0.1 10^3/uL (0.0-0.1); Basophils % 0.8 %; Eosinophils # 0.2 10^3/uL (0.0-0.8); Eosinophils % 2.7 %; Hematocrit 39.5 % (37.0-47.0); Hemoglobin 12.4 g/dL (11.5-15.3); Lymphocytes # 1.2 10^3/uL (0.8-4.8); Lymphocytes % 20.1 %; Mean Corpuscular HGB Conc 31.4 g/dL (30.0-36.0); Mean Corpuscular Hemoglobin 25.7 pg (28.0-34.0); Mean Platelet Volume 9.8 fL (7.4-10.4); Monocytes # 0.6 10^3/uL (0.2-0.9); Neutrophils # 3.91 10^3/uL (1.8-7.7); Neutrophils % 66.2 %; Nucleated Red Blood Cells % 0 %; Platelet Count 291 10^3/cmm (130-400); Red Blood Count 4.82 10^6/uL (4.1-5.3); Red Cell Distribution Width 15.8 % (12.1-15.1); White Blood Count 5.9 10^3/uL (4.0-10.0)
--- NOTE | 2021-09-09 12:01 | CTR_ITS ---
A a PROCEDURE INFORMATION: Exam: CTA Chest With Contrast Exam date and time: 09/09/2021 12:01 PM Age: 71 years old Clinical indication: Pain; Chest pressure; Other: Aaa; Additional info: Chest pain, known aaa, bps asymmetric TECHNIQUE: Imaging protocol: Computed tomographic angiography of the chest with contrast. 3D rendering (Not supervised by radiologist): MIP and/or 3D reconstructed images were created by the technologist. Radiation optimization: All CT scans at this facility use at least one of these dose optimization techniques: automated exposure control; mA and/or kV adjustment per patient size (includes targeted exams where dose is matched to clinical indication); or iterative reconstruction. Contrast material: OMNI 350; Contrast volume: 95 ml; Contrast route: INTRAVENOUS (IV); COMPARISON: CT angio chest abdomen pelvis 04/08/2021 4:02 PM RADIATION DOSE METRICS: Total DLP (mGy-cm): 966.28 FINDINGS: Pulmonary arteries: Normal. No pulmonary emboli. Aorta: Unremarkable. No aortic aneurysm. No aortic dissection. Thyroid: measuring 29 mm x 13 mm. This finding correspond to goiter Lungs: Unremarkable. No consolidation. No masses. Pleural spaces: Unremarkable. No pneumothorax. No pleural effusion. Heart: Unremarkable. No cardiomegaly. No pericardial effusion. Lymph nodes: Unremarkable. No enlarged lymph nodes. Bones/joints: Unremarkable. No acute fracture. Soft tissues: There is a circumscribed cyst in the left thyroid lobe IMPRESSION: 1. Negative for radiographic evidence of proximal pulmonary embolism. 2. Left thyroid lobe goiter 3. Otherwise negative chest examination PROCEDURE INFORMATION: Exam: CTA Abdomen and Pelvis With Contrast Exam date and time: 09/09/2021 12:01 PM Age: 71 years old Clinical indication: Pain; Chest pressure; Other: Aaa; Additional info: Chest pain, known aaa, bps asymmetric TECHNIQUE: Imaging protocol: Computed tomographic angiography of the abdomen and pelvis with contrast material. 3D rendering (Not supervised by radiologist): MIP and/or 3D reconstructed images were created by the technologist. Radiation optimization: All CT scans at this facility use at least one of these dose optimization techniques: automated exposure control; mA and/or kV adjustment per patient size (includes targeted exams where dose is matched to clinical indication); or iterative reconstruction. Contrast material: OMNI 350; Contrast volume: 95 ml; Contrast route: INTRAVENOUS (IV); COMPARISON: CT angio chest abdomen pelvis 04/08/2021 4:02 PM RADIATION DOSE METRICS: Total DLP (mGy-cm): 966.28 FINDINGS: Aorta: The distal abdominal aortic shows an aneurysm. The aorta is calcified with intraluminal thrombus AP measurement is 36 mm longitudinal measurement 54 mm. Axial measurements are 42 mm x38 mm . The true lumen measures 27.9 mm x 28.8 mm in the axial plane. No aortic dissection. Celiac trunk and mesenteric arteries: No occlusion . There is stenosis of the proximal aspect of the celiac axis. The SMA show shows normal caliber. The BLAYNE is not visible I have left her all days are are a Renal arteries: No occlusion or significant stenosis. Right iliac arteries: No occlusion or significant stenosis. This artery is ectatic. There is AP measurement of 23 mm Left iliac arteries: No occlusion or significant stenosis. Liver: No mass. There is diffuse hepatic lucency consistent with steatosis. Gallbladder and bile ducts: Unremarkable. No calcified stones. No ductal dilation. Pancreas: Unremarkable. No mass. No ductal dilation. Spleen: Unremarkable. No splenomegaly. Adrenal glands: Unremarkable. No mass. Kidneys and ureters: The left kidney is atrophic. A posterior left renal cyst is seen 20/2 0.9 mm x 19.5 mm The right kidney is unremarkable in appearance. No solid mass. No hydronephrosis. Stomach and bowel: There is diffuse diverticulosis in the sigmoid colon without diverticulitis. No obstruction. No mucosal thickening. Appendix: No evidence of appendicitis. Intraperitoneal space: Unremarkable. No free air. No significant fluid collection. Lymph nodes: Unremarkable. No enlarged lymph nodes. Urinary bladder: Unremarkable. No mass. Reproductive: Unremarkable as visualized. Bones/joints: No acute fracture. No dislocation. Surgical hardware is present in the L3-L4 vertebral bodies with metallic transpedicular screws and rods in place. There is osteoarthritis in the spine. No acute fracture or subluxations are seen. Soft tissues: Unremarkable. CT/CT angio chest abdomen pelvis IMPRESSION: 1. Abdominal aortic aneurysm with intraluminal thrombus as noted. 2. 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 3. Hepatic steatosis 4. Sigmoid colon diverticulosis 5. Atrophic left kidney with benign cys. 6. Postsurgical hardware in the lumbar spine 7. Ectatic right proximal iliac artery Radiation Dose CTDIVOL = (mGy): DLP = 966.28~966.28 (mGy-cm)
[2021-09-09 12:10] LABS: Alanine Aminotransferase 17 U/L (0-33); Albumin Level 3.8 g/dL (3.5-5.2); Alkaline Phosphatase 138 IU/L (35-105); Anion Gap 13.3 (5-19); Aspartate Amino Transferase 21 U/L (0-32); Blood Urea Nitrogen 9 mg/dL (8-23); Calcium 9.4 mg/dL (8.5-10.5); Carbon Dioxide 27 mmol/L (22-29); Chloride 101 mmol/L (98-107); Creatinine Clr Calc Pharmacy 57.9874; Globulin 2.5 g/dL (1.3-4.6); Glucose 99 mg/dL (65-115); Osmolality Calculated 285 mOsm/kg (285-295); Potassium 3.3 mmol/L (3.5-5.1); Sodium 138 mmol/L (136-145); Total Bilirubin 0.6 mg/dL (0.15-1.2); Total Protein 6.3 g/dL (6.6-8.7)
[2021-09-09 12:11] LABS: Troponin(5th) Baseline 15 ng/L (0-10)
[2021-09-09] MEDS: labetalol 5 mg/mL SDV 20mL 10 MG IVP (12:27)
--- NOTE | 2021-09-09 12:44 | ECG_ITS ---
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 Measurements Intervals [place] Rate: 72 P: 70 [place]: 164 QRS: -2 QRSD: 73 T: 36 QT: 384 QTc: 421 Interpretive Statements SINUS RHYTHM POSSIBLE LEFT ATRIAL ENLARGEMENT [-0.1mV P-WAVE IN V1/V2] SEPTAL MYOCARDIAL INFARCTION , OF INDETERMINATE AGE [40+ ms Q WAVE IN V1/V2] Compared to ECG 07/24/2021 16:53:43 Myocardial infarct finding now present Electronically Signed On 09-09-2021 23:23:31 CDT by Jamie Ordaz M.D. [email or web address]
[2021-09-09] MEDS: iohexol 350 mg/mL 100 mL Btl IV (13:25)
[2021-09-09] MEDS: potassium chloride oral liq 20 mEq/15 mL UDC 40 MEQ PO (13:49)
[2021-09-09] MEDS: hyDRALAzine 20 mg/mL INJ 1 mL 10 MG IVP (13:49)
[2021-09-09 13:58] LABS: Troponin 5 2HR 13.35 ng/L (0-10)
[2021-09-09 14:00] LABS: Troponin 5 2HR Delta -1.65 ABS# (0-10)
[2021-09-09] MEDS: amlodipine 5 mg Tablet PO (14:20)
--- NOTE | 2021-09-09 14:32 | CTR_ITS ---
PROCEDURE INFORMATION: Exam: CT Head Without Contrast Exam date and time: 09/09/2021 2:32 PM Age: 71 years old Clinical indication: Pain; Headache not specified; Patient HX: C/O frontal SCHMIDT; Additional info: AMS TECHNIQUE: Imaging protocol: Computed tomography of the head without contrast. Radiation optimization: All CT scans at this facility use at least one of these dose optimization techniques: automated exposure control; mA and/or kV adjustment per patient size (includes targeted exams where dose is matched to clinical indication); or iterative reconstruction. COMPARISON: CT head wo con* [id number] 07/24/2021 3:27 PM RADIATION DOSE METRICS: Total DLP (mGy-cm): 849.57 FINDINGS: Brain: Normal. No hemorrhage. Unremarkable white matter. No mass effect. Cerebral ventricles: There is stable moderate ventriculomegaly. Paranasal sinuses: Visualized sinuses are unremarkable. No fluid levels. Mastoid air cells: Visualized mastoid air cells are well aerated. Bones/joints: Unremarkable. No acute fracture. Soft tissues: Unremarkable. Comparison to prior examination similar findings is seen. CT/CT head wo con* [id number] IMPRESSION: No acute intracranial abnormality. Stable moderate ventriculomegaly Radiation Dose CTDIVOL = (mGy): DLP = 849.57 (mGy-cm)
[2021-09-09 15:12] LABS: Thyroid Stimulating Hormone 0.71 uIU/mL (0.27-4.20); Vitamin B12 817 pg/mL (232-1245)
[2021-09-09 15:15] LABS: SARS Covid-2 Antigen Negative (Negative)
[2021-09-09] MEDS: nicardipine 20 MG/200 ML PREMIX 50 MG IV (15:42)
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
--- NOTE | 2021-09-09 16:23 | ECG_ITS ---
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 Interpretive Statements NAME OF STUDY: LEXISCAN SESTAMIBI STRESS TEST INDICATION: [Angina, ] Procedure: At the baseline, the blood pressure was 90/52 mmHg with a heart rate of 103 bpm. The electrocardiogram showed normal sinus rhythm, normal axis with normal ST and T's. Frequent PVCs are noted The Lexiscan was infused over a period of 20 seconds. A total of 0.4 mg of Lexiscan was infused. The stress phase was continued for a total of 5 minutes. Heart rate was at the end of stress phase was 119 bpm and a blood pressure of 108/43 mmHg. The EKG at the peak infusion revealed since normal sinus rhythm with no significant ST-T wave changes. Sestamibi was injected 20 seconds after the Lexiscan infusion. Blood pressure at the end of recovery phase was 110/48 mmHg with a heart rate of 112 bpm. EKG showed frequent PVCs. Conclusion: 1. Normal EKG response to Lexiscan infusion 2. No Lexiscan induced chest pain or cardiac arrhythmia. 3. Normal blood pressure and heart rate response. 4. Sestamibi/sestamibi perfusion scan pending; see separate report. Electronically Signed On 10-08-2021 10:16:15 HOSTEL PARENT by Jamie Ordaz M.D. [id number]
--- NOTE | 2021-09-09 16:44 | ECG_ITS ---
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 Measurements Intervals [place] Rate: 75 P: 75 ID: [id number] QRS: 0 QRSD: 76 T: 68 QT: 388 QTc: 434 Interpretive Statements SINUS RHYTHM WITH OCCASIONAL VENTRICULAR PREMATURE COMPLEXES POSSIBLE LEFT ATRIAL ENLARGEMENT [-0.1mV P-WAVE IN V1/V2] Compared to ECG 07/24/2021 16:53:43 Ventricular premature complex(es) now present Electronically Signed On 09-09-2021 23:23:35 CDT by Jamie Ordaz M.D. [id number]
[2021-09-09] MEDS: losartan 50 mg Tablet 25 MG PO (17:09)
[2021-09-09] MEDS: acetaminophen 500 mg Tablet PO (17:10)
[2021-09-09] MEDS: enoxaparin 40 mg/0.4 mL Syringe SUBCUT (17:10)
[2021-09-09 17:15] LABS: Procalcitonin 0.06 ng/mL (0-0.5)
[2021-09-09 18:43] LABS: Troponin 5 6HR 13.58 ng/L (0-10)
[2021-09-09 18:46] LABS: Troponin 5 6HR Delta -1.42 ng/L (0-12)
[2021-09-09] MEDS: nicardipine 20 MG/200 ML PREMIX 30 MG IV (20:04)
--- NOTE | 2021-09-09 21:07 | PC.NURSE ---
Family Update Attempts 2 attempted phone calls made to , Chente Martinez, for patient updates. No contact made. Patient aware of attempts and states is probably already asleep for the night. Will attempt again in the morning.
--- NOTE | 2021-09-09 21:50 | PC.NURSE ---
Physician communication Dr. Jeffers called for patient update. New orders received to stop nicardipine drip and to administer first dose of amlodipine tonight. Orders followed as indicated.
[2021-09-09] MEDS: amlodipine 10 mg Tablet PO (22:08)
--- NOTE | 2021-09-09 23:24 | PC.NURSE ---
Physician Communication Dr. Bruce notified of blood pressure 174/62. Orders received to monitor blood pressure again in one hour and notify of results.
[2021-09-10] VITALS (58 sets, daily range): BP systolic 102–179; BP diastolic 48–91; PULSE 0–130; RESP 11–27; TEMP 36.8–36.9; O2SAT 89–98; BMI 16.0
--- NOTE | 2021-09-10 00:36 | PC.NURSE ---
Confusion Patient can answer to person/birthdate, place, situation, but not time. Patient states that it is the middle of the day and that she is waiting for her to show up to visit. Reorientation provided as needed.
--- NOTE | 2021-09-10 01:40 | PC.NURSE ---
Nicardipine Dr. Bruce notified of increasing blood pressure trend in addition to the latest blood pressure of 194/91. Orders received to restart Nicardipine drip per protocol. Medication administered per JAN.
[2021-09-10] MEDS: nicardipine 20 MG/200 ML PREMIX 75 MG IV ×2 (03:40→06:23)
--- NOTE | 2021-09-10 06:59 | PC.NURSE ---
Shift Note Frequent safety and comfort rounds continue. Orders and/or nursing care completed as indicated. Patient monitored for response to intervention and treatment(s). Education provided includes information regarding nicardipine, the importance of using telemetry, and IV medication therapy. Patient verbalized understanding. Will continue to monitor.
[2021-09-10 08:31] LABS: Basophils # 0.1 10^3/uL (0.0-0.1); Eosinophils # 0.2 10^3/uL (0.0-0.8); Eosinophils % 2.6 %; Hematocrit 38.8 % (37.0-47.0); Hemoglobin 12.4 g/dL (11.5-15.3); Lymphocytes % 17.2 %; Mean Corpuscular Volume 81.3 fl (81-99); Monocytes # 0.6 10^3/uL (0.2-0.9); Monocytes % 9.8 %; Neutrophils # 4.01 10^3/uL (1.8-7.7); Neutrophils % 68.9 %; Nucleated Red Blood Cells % 0 %; Platelet Count 289 10^3/cmm (130-400); Red Blood Count 4.77 10^6/uL (4.1-5.3); Red Cell Distribution Width 16.3 % (12.1-15.1); White Blood Count 5.8 10^3/uL (4.0-10.0)
[2021-09-10 08:43] LABS: Anion Gap 13.3 (5-19); Blood Urea Nitrogen 12 mg/dL (8-23); Calcium 9.5 mg/dL (8.5-10.5); Carbon Dioxide 23 mmol/L (22-29); Chloride 110 mmol/L (98-107); Glucose 113 mg/dL (65-115); Magnesium 2.1 mg/dL (1.7-2.3); Osmolality Calculated 297 mOsm/kg (285-295); Potassium 3.3 mmol/L (3.5-5.1); Sodium 143 mmol/L (136-145)
[2021-09-10 08:45] LABS: Ammonia 22 umol/L (11-51)
[2021-09-10] MEDS: clopidogrel 75 mg Tablet PO (09:09)
[2021-09-10] MEDS: losartan 50 mg Tablet 25 MG PO ×2 (09:09→09:42)
[2021-09-10] MEDS: sennosides-docusate Tablet 1 TAB PO (09:09)
[2021-09-10] MEDS: atorvastatin 40 mg Tablet PO (09:10)
[2021-09-10] MEDS: amlodipine 10 mg Tablet PO (09:10)
[2021-09-10] MEDS: isosorbide mononitrate ER 30 mg Tablet PO (09:12)
--- NOTE | 2021-09-10 09:51 | PC.CHAP ---
Pastoral Care Encounter/Spiritual Assessment Type of Contact [] Declined japanese professor visit [] Patient/Family/Request visit [] Outpatient visit [] Follow-up visit [] Physician referral [] Code/Alert [x] Routine visit [] Staff referral [] Actively dying [] Patient sleeping [] Family support [] [] Out of room [] Palliative care [] [x] Receiving care in room [] Pre-surgical visit [] Trauma [] Long length of stay [x ICU visit [x] Other: patient setting up in bed Relational/Emotional Strength [] Patient feels connected with others/family/visitors/staff [] Distress [] Loneliness/isolation [] Abandonment Spirituality of Patient [] Person of Kassi [] Attends Scientologist of their Kassi [] Believes in Prayer [] Reads Bible or Spiritism materials [] There are Spiritual issues to be addressed Engraving Supervisor Interventions [x] Prayer [] Active listening [] Non-anxious presence [] Spiritual/emotional support [] Crisis/trauma care [] Spiritual counseling [] Bereavement support [] Provided bereavement packet [] Provided Bible/devotional materials [] Provided toy/stuffed animal, coloring book to patient or family member [] Provided Communion [] Anointing/[place] [] Salvation [x] Completed spiritual assessment [] Other: Impact on Illness or Injury [] Angry [] Fearful [] Anxious [] Often cries [] Exhaustion [] Unable to work [] Unable to attend muslim [] Unable to walk/stand [] Unable to read [] Unable to drive [] Unable to eat/drink [] Unable to sleep [] Unable to be with family [] Patient intubated [] Other: Summary Time spent with patient
[2021-09-10] MEDS: hyDRALAzine 25 mg Tablet PO (11:03)
--- NOTE | 2021-09-10 11:17 | PC.NURSE ---
Report called to KASANDRA Feldman, CSU. 112-1.
--- NOTE | 2021-09-10 11:29 | PC.NURSE ---
Patient asked nurse to help find her a place to live. Attempted to call home phone number, , no reply. Will relay to social services designee. Physician already aware.
[2021-09-10] MEDS: regadenoson 0.4 Mg/5 ml Syringe IVP (12:03)
[2021-09-10] MEDS: ondansetron 2 mg/ML SDV 2 mL 4 MG IVP (12:12)
--- NOTE | 2021-09-10 13:30 | PC.NURSE ---
Received pt from ICU to room 112-1. Pt behavior calm and cooperative. Pt had no c/o pain or discomfort at the present time. Pt now lying in bed resting and watching TV. Call light in reach. Will cont to monitor.
--- NOTE | 2021-09-10 16:23 | NMCV_ITS ---
NM ede perf SPECT r/s* [id number] Rosie Martinez Age: 71 Gender: F : 1950 Exam Date: 09/10/2021 11:29 Ordering Phys: Tamera Jeffers MD Technologist: CAROLINA Gamez Exam Location: [facility] Indications: CHEST PAIN STRESS TEST [facility] IMAGE PROTOCOL Rest/Stress 1 Lexiscan Day Radiopharmaceutical Dose (mCi) Administration Site Administered by Rest: Tc-99m 10.6 IV CAROLINA Gamez Sestamibi Stress:Tc-99m 32.5 IV CAROLINA Cornell Sestamibi Rest: 10-Sep-2021 60 Discovery 630 Stress: 10-Sep-2021 30 Discovery 630 0.4mg Lexiscan. Supine position only as patient was unable to lay prone. SPECT RESULTS Technical Quality: Excellent Raw Data Analysis: Normal Image Corrections: No attenuation or motion correction applied Summed Stress Score: 0 Summed Rest Score: 0 Summed Difference Score: 0 PERFUSION FINDINGS SPECT images demonstrate homogeneous tracer distribution throughout the myocardium. FUNCTIONAL RESULTS (calculated via Gated SPECT) Stress Image LV EF (%): 82 Stress EDV (mL):45 TID: 0.78 Stress ESV (mL):8 FUNCTIONAL FINDINGS: There is normal left ventricular systolic function. IMPRESSIONS 1. Normal myocardial perfusion imaging with no evidence of ischemia 2. LV systolic function is normal Jamie Ordaz MD (Electronically Signed) Final Date: 10 September 2021 13:54 S
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
[2021-09-10] MEDS: losartan 50 mg Tablet PO (18:39)
[2021-09-10 18:40] LABS: Vitamin B12 696 pg/mL (232-1245)
[2021-09-10 18:41] LABS: Folate Level 8.7 ng/mL (4.8-37.3)
[2021-09-10] MEDS: enoxaparin 40 mg/0.4 mL Syringe SUBCUT (18:41)
[2021-09-10] MEDS: carvedilol 25 mg Tablet 37.5 MG PO (18:41)
--- NOTE | 2021-09-10 18:55 | PC.NURSE ---
Pt showing signs of confusion. Pt becoming very anxious sitting on on the side of the bed raising voice and c/o not coming back to get her. Pt easily redirected. Pt now lying in bed with eyes closed. Will cont to monitor.
[2021-09-11] VITALS (49 sets, daily range): BP systolic 109–154; BP diastolic 49–85; PULSE 57–89; RESP 20; TEMP 36.5–36.6; O2SAT 74–97
[2021-09-11 09:35] LABS: Anion Gap 13.8 (5-19); Blood Urea Nitrogen 14 mg/dL (8-23); Calcium 9.7 mg/dL (8.5-10.5); Carbon Dioxide 23 mmol/L (22-29); Chloride 108 mmol/L (98-107); Glucose 93 mg/dL (65-115); Osmolality Calculated 292 mOsm/kg (285-295); Potassium 3.8 mmol/L (3.5-5.1); Sodium 141 mmol/L (136-145)
[2021-09-11] MEDS: sennosides-docusate Tablet 1 TAB PO (10:10)
[2021-09-11] MEDS: atorvastatin 40 mg Tablet PO (10:10)
[2021-09-11] MEDS: clopidogrel 75 mg Tablet PO (10:11)
[2021-09-11] MEDS: carvedilol 25 mg Tablet 37.5 MG PO (10:11)
[2021-09-11] MEDS: losartan 50 mg Tablet PO (10:12)
[2021-09-11] MEDS: isosorbide mononitrate ER 30 mg Tablet PO (10:12)
--- NOTE | 2021-09-11 11:22 | PC.CHAP ---
Pastoral Care Encounter/Spiritual Assessment Type of Contact [x] Declined liner replacer visit [] Patient/Family/Request visit [] Outpatient visit [] Follow-up visit [] Physician referral [] Code/Alert [x] Routine visit [] Staff referral [] Actively dying [] Patient sleeping [] Family support [] [] Out of room [] Palliative care [] [] Receiving care in room [] Pre-surgical visit [] Trauma [] Long length of stay [] ICU visit [] Other: Relational/Emotional Strength [] Patient feels connected with others/family/visitors/staff [] Distress [] Loneliness/isolation [] Abandonment Spirituality of Patient [] Person of Kassi [] Attends Congregation of their Kassi [] Believes in Prayer [] Reads Bible or Voodoo materials [] There are Spiritual issues to be addressed Shank Cutter Interventions [] Prayer [] Active listening [] Non-anxious presence [] Spiritual/emotional support [] Crisis/trauma care [] Spiritual counseling [] Bereavement support [] Provided bereavement packet [] Provided Bible/devotional materials [] Provided toy/stuffed animal, coloring book to patient or family member [] Provided Communion [] Anointing/[place] [] Salvation [] Completed spiritual assessment [] Other: Impact on Illness or Injury [x] Angry [] Fearful [] Anxious [] Often cries [] Exhaustion [] Unable to work [] Unable to attend taoist [] Unable to walk/stand [] Unable to read [] Unable to drive [] Unable to eat/drink [] Unable to sleep [] Unable to be with family [] Patient intubated [] Other: Summary This gal seemed agitated & angry. She said: I don't believe in you. To which I said, have a good day and exited the room. Time spent with patient
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
[2021-09-11] MEDS: sodium chloride 0.9% 500 ML 999 ML IV (15:09)
--- NOTE | 2021-09-11 16:00 | PC.NURSE ---
Pt discharged home. IV removed no redness or swelling noted. Pts discharge instructions given along with prescriptions and follow up appointments. Pt had no c/o pain or discomfort at the time of discharge.
--- NOTE | 2021-09-13 09:42 | PC.SOCIAL ---
discharge follow up call made, spoke with patient. unable to obtain much information from patient, patient seems confused. patient reports to consumer loan underwriter that she isn't taking any medications at this time, when asked why she states i don't have any patient given follow up appointment dates and times for pcp and dr. fields. patient states just send out the nurse to do my medications patient is unsure the company she uses. consumer loan underwriter called and spoke with Nicole, Dr. Peng's nurse. she reports they haven't saw the patient since 2019. [facility] has been talking with Nabeel TA who is currently seeing patient. they reported to [facility] that patient currently only has 2 medications that they could find in the home, one of those medications being nitro. they have hotlined the patient due to patient and not being safe at home. consumer loan underwriter will fax discharge summary to [facility] to have available when patient has follow up appointment with dr. peng.
--- NOTE | 2021-09-13 10:25 | PC.SOCIAL ---
spoke with elisa at [facility]. elisa received an updated medication list last pm from dr. torres. she will fill those medications and give to patients . the senior medical writer spoke with [facility] saw patient yesterday and will be seeing again today and the nurse will see patient tomorrow.
== END 2021-09-11 16:19 | disposition home or self-care (01) ==
LOC: ER 11:07 → MEDSURG 15:01 → ICU 15:54 → CSU 09-10 11:52
PROVIDERS: Physician Assistant; Admitting Provider Internal Medicine; Emergency Provider Emergency Medicine; PCP Family Medicine; Visit Provider Internal Medicine
DX: I16.0 Hypertensive urgency (principal); R40.0 Somnolence; I73.9 Peripheral vascular disease, unspecified; G47.33 Obstructive sleep apnea (adult) (pediatric); I71.4 Abdominal aortic aneurysm, without rupture; I72.3 Aneurysm of iliac artery; R07.89 Other chest pain; I25.10 Atherosclerotic heart disease of native coronary artery without angina pectoris; E78.5 Hyperlipidemia, unspecified; I10 Essential (primary) hypertension; Z87.891 Personal history of nicotine dependence
CPT/HCPCS: 36415; 70450; 71045; 71275; 74174; 78452; 80048; 80053; 82140; 82607; 82746; 83735; 84145; 84443; 84484; 85025; 87426; 93005; 93017; 96365; 96372; 96375; 99291; A9500; G0378; J0360; J1650; J2405; J2785; J3490; J7040; Q9967

== ENCOUNTER 2021-10-23 14:45 | Emergency (ER) | payer MEDICARE, OTHER, SELFPAY ==
[2021-10-23 14:55] VITALS: BP 186/71; PULSE 71; RESP 16; TEMP 36.6; O2SAT 97; BMI 24.1
[2021-10-23 15:08] VITALS: BP 186/71; PULSE 71; RESP 14; O2SAT 97
--- NOTE | 2021-10-23 15:10 | XRR_ITS ---
PROCEDURE INFORMATION: Exam: XR Left Knee Exam date and time: 10/23/2021 3:10 PM Age: 71 years old Clinical indication: Injury or trauma; Fall; Blunt trauma; Knee; Left TECHNIQUE: Imaging protocol: XR Left knee. Views: 3 views. COMPARISON: CR XR knee LT 3V* [id number] 07/24/2021 2:50 PM FINDINGS: Bones/joints: Osseous structures are intact. No evidence of fracture. Moderate degenerative narrowing centered at the medial compartment of the knee. Soft tissues: Normal. XR/XR knee LT 3V* [id number] IMPRESSION: No acute findings. Radiation Dose CTDIVOL = (mGy): DLP = (mGy-cm)
--- NOTE | 2021-10-23 15:26 | W.ED.LOWEXIN ---
HPI - Extremity Injury (Lower) General: Chief Complaint: Extremity Injury, Lower Stated Complaint: R KNEE INJURY Time Seen by Provider: 10/23/21 15:08 Source: patient Mode of arrival: ambulatory Limitations: no limitations History of Present Illness: HPI Narrative: Patient is a 71-year-old female who presents to ED today along with her for evaluation of a left knee injury. Patient tells me yesterday she accidentally tripped and fell and landed onto her left knee. She has had continued pain following the fall. She has been ambulatory with the help of her walker since the incident. She denies any other injuries sustained during her fall. Her only complaint today is left knee pain. MD complaint: knee injury Onset (ago): day(s) (yesterday evening) Place: home Relieving factors: immobilization Exacerbating factors: weight bearing, movement and palpation Context: fall Associated symptoms: Reports no associated symptoms Other symptoms: none Review of Systems General: Reports: 10 or more systems reviewed and unremarkable except in HPI and below Musc: Reports: joint pain (L knee pain) Neuro: Denies: numbness in extremities or sensory changes PFSH ED PFSH: Medical History Abdominal aortic aneurysm (AAA) 3.0 cm to 5.0 cm in diameter in female 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 Hazel, 2013 S/P cataract extraction and insertion of intraocular lens bilateral S/P cervical spinal fusion ACDFF Dr. Dawn 12/07/2015 S/P right coronary artery (RCA) stent placement (~05/2019) Family History Other Cancer Rheumatoid arthritis Denies family history of Chronic kidney disease (CKD) Systemic lupus erythematosus (SLE) in adult Lung disease Hypertension Social History Smoking and tobacco status: former smoker Alcohol intake: current Alcohol intake frequency: holidays/special occasions only History of recent travel: No (12/10/19) Physical Exam Const: COMMON NORMALS: no acute distress, average body habitus, patient oriented x3, no limitations, healthy appearing, alert and well nourished Extremity: GENERAL: Yes normal exam except as noted LEFT LOWER EXTREMITY: Yes knee joint (TTP anterior L knee; no swelling/effusion noted) Left knee: Yes ROM (normal) and Yes neurovascular exam (normal) Neuro: COMMON NORMALS: patient oriented x3, moves all extremities, no focal motor deficits and no sensory deficits noted SENSORIUM/ORIENTATION: Yes alert Skin: COMMON NORMALS: no rashes or lesions noted GENERAL SKIN EXAM: no rashes or lesions noted TRAUMA: no lacerations or abrasions Course Vital Signs: Vital signs: Vital Signs Temperature 97.9 F 10/23/21 14:55 Pulse Rate 71 10/23/21 15:08 Respiratory Rate 14 10/23/21 15:08 Blood Pressure 186/71 10/23/21 15:08 Pulse Oximetry 97 10/23/21 15:08 MDM - Extremity Injury (Lower) Imaging Data^: XR L knee: Radiologist's impression: [address] [address] XRay Report Signed Patient: Rosie Martinez Unit #: [id number] : 1950 Age/Sex: 71 / F ADM Date: 10/23/21 Loc: ER Room/Bed: Attending Dr: Ordering Provider/Ordering MD: Ailin Jhaveri Date of Service: 10/23/21 Procedure(s): XR knee LT 3V* [id number] Accession Number(s): [id number] Report Number: [id number] PROCEDURE INFORMATION: Exam: XR Left Knee Exam date and time: 10/23/2021 3:10 PM Age: 71 years old Clinical indication: Injury or trauma; Fall; Blunt trauma; Knee; Left TECHNIQUE: Imaging protocol: XR Left knee. Views: 3 views. COMPARISON: CR XR knee LT 3V* [id number] 07/24/2021 2:50 PM FINDINGS: Bones/joints: Osseous structures are intact. No evidence of fracture. Moderate degenerative narrowing centered at the medial compartment of the knee. Soft tissues: Normal. XR/XR knee LT 3V* [id number] IMPRESSION: No acute findings. Radiation Dose CTDIVOL = (mGy): DLP = (mGy-cm) Dictated By: Jake Deshpande DO Signed By: Jake Deshpande DO Signed Date/Time: 10/23/21 1609 DD/ 1510 Discharge Plan Discharge Patient Disposition: Home Clinical Impression: Contusion of knee, left Qualifiers: Encounter type: initial encounter Qualified Code(s): S80.02XA - Contusion of left knee, initial encounter Condition: Stable Prescriptions: No Action atorvastatin 40 mg tablet 40 mg PO DAILY Qty: 30 RF: 6 Aspirin Low Dose 81 mg tablet,delayed release (DR/EC) 81 mg PO DAILY Qty: 30 RF: 6 carvedilol 25 mg tablet 37.5 mg PO BID Qty: 90 RF: 6 clopidogrel 75 mg tablet 75 mg PO DAILY Qty: 30 RF: 6 isosorbide mononitrate 30 mg tablet extended release 24 hr 15 mg PO DAILY Qty: 15 RF: 6 melatonin 5 mg Tablet 5 mg PO DAILY Qty: 0 RF: 0 Vitamin D3 25 mcg (1,000 unit) Capsule 25 mcg PO DAILY 30 Days Qty: 30 RF: 0 Discharge Orders: Discharge ED (Routine); Ordered 10/23/21 Ordered By: Ailin Jhaveri Referrals: Silvia Peng MD [Primary Care Provider] - Coding Level of Care Code ED Electrical Hardware Engineer for Loulou Borrero
== END 2021-10-23 16:13 | disposition home or self-care (01) ==
PROVIDERS: Emergency Provider Physician Assistant; PCP Family Medicine
DX: S80.02XA Contusion of left knee, initial encounter (principal); W18.30XA Fall on same level, unspecified, initial encounter; I25.10 Atherosclerotic heart disease of native coronary artery without angina pectoris; Z87.891 Personal history of nicotine dependence; I10 Essential (primary) hypertension; I71.4 Abdominal aortic aneurysm, without rupture; I72.3 Aneurysm of iliac artery; E78.5 Hyperlipidemia, unspecified; I73.9 Peripheral vascular disease, unspecified
CPT/HCPCS: 73562; 99282

== ENCOUNTER 2021-10-31 18:21 | Emergency (ER) | payer MEDICARE, OTHER, SELFPAY ==
--- NOTE | 2021-10-31 18:23 | CTR_ITS ---
PROCEDURE INFORMATION: Exam: CT Head Without Contrast Exam date and time: 10/31/2021 6:23 PM Age: 71 years old Clinical indication: Injury or trauma; Fall; Blunt trauma (contusions or hematomas) TECHNIQUE: Imaging protocol: Computed tomography of the head without contrast. Radiation optimization: All CT scans at this facility use at least one of these dose optimization techniques: automated exposure control; mA and/or kV adjustment per patient size (includes targeted exams where dose is matched to clinical indication); or iterative reconstruction. COMPARISON: CT head wo con* [id number] 09/09/2021 3:00 PM RADIATION DOSE METRICS: Total DLP (mGy-cm): 887.2 FINDINGS: Brain: Moderate diffuse white matter disease likely reflecting chronic microvascular ischemic changes. Cerebral ventricles: No ventriculomegaly. Paranasal sinuses: Visualized sinuses are unremarkable. No fluid levels. Mastoid air cells: Visualized mastoid air cells are well aerated. Bones/joints: Unremarkable. No acute fracture. Soft tissues: Unremarkable. CT/CT head wo con* [id number] IMPRESSION: Negative for intracranial hemorrhage or mass effect Radiation Dose CTDIVOL = (mGy): DLP = 887.2 (mGy-cm)
--- NOTE | 2021-10-31 18:23 | CTR_ITS ---
PROCEDURE INFORMATION: Exam: CT Cervical Spine Without Contrast Exam date and time: 10/31/2021 6:23 PM Age: 71 years old Clinical indication: Injury or trauma; Fall; Blunt trauma TECHNIQUE: Imaging protocol: Computed tomography images of the cervical spine without contrast. Radiation optimization: All CT scans at this facility use at least one of these dose optimization techniques: automated exposure control; mA and/or kV adjustment per patient size (includes targeted exams where dose is matched to clinical indication); or iterative reconstruction. COMPARISON: CT cervical spin wo con* [id number] 07/24/2021 3:30 PM RADIATION DOSE METRICS: Total DLP (mGy-cm): 423.22 FINDINGS: Vertebrae: Right C2 transverse process subtle nondisplaced fracture suspected on series 4, image 16 and 17, further evaluation with CT angiogram should be considered given proximity to the vertebral foramen.. Subtle lucency in the left transverse process medial to the vertebral foramen on series 4, image 16 appears similar to prior exam. C5-C6 anterior cervical discectomy and fusion changes seen in place. C2-C3: No significant disc protrusion. No severe spinal canal stenosis. No significant neural foraminal narrowing. C3-C4: No significant disc protrusion. No severe spinal canal stenosis. No significant neural foraminal narrowing. C4-C5: No significant disc protrusion. No severe spinal canal stenosis. No significant neural foraminal narrowing. C5-C6: No significant disc protrusion. No severe spinal canal stenosis. No significant neural foraminal narrowing. C6-C7: No significant disc protrusion. No severe spinal canal stenosis. No significant neural foraminal narrowing. C7-T1: No significant disc protrusion. No severe spinal canal stenosis. No significant neural foraminal narrowing. Soft tissues: Unremarkable. Thyroid: Left thyroid 16 mm cystic lesion again seen similar to prior exam. Lungs: Lung apices are normal. CT/CT cervical spin wo con* [id number] IMPRESSION: 1. Right C2 transverse process subtle nondisplaced fracture suspected on series 4, image 16 and 17, further evaluation with CT angiogram should be considered given proximity to the vertebral foramen. 2. Subtle lucency in the left transverse process medial to the vertebral foramen on series 4, image 16 appears similar to prior exam. 3. C5-C6 anterior cervical discectomy and fusion changes seen in place. 4. Left thyroid 16 mm cystic lesion again seen similar to prior exam. COMMENTS: Consistent with the [employer]'s Incidental Findings Committee white paper (J Am Missy Radiol 2015): In patients aged 35 years and older with an incidental thyroid nodule equal to or greater than 1.[address], MRI or extrathyroidal US, further evaluation with dedicated thyroid US is recommended for patients with normal life expectancy and without comorbidities. For smaller nodules without suspicious features, no further evaluation or follow up is recommended. Radiation Dose CTDIVOL = (mGy): DLP = 423.22 (mGy-cm)
[2021-10-31 18:32] VITALS: BP 224/102; PULSE 74; RESP 18; TEMP 36.6; O2SAT 97; BMI 22.3
--- NOTE | 2021-10-31 19:16 | W.ED.FALL ---
HPI - Fall General: Chief Complaint: Fall Stated Complaint: Fell on concrete, hit head dizzy Time Seen by Provider: 10/31/21 19:16 History of Present Illness: HPI Narrative: Ms. Martinez is a 71-year-old lady with history of hypertension, hyperlipidemia, CAD who presents to the emergency department due to fall. Fall occurred prior to coming to the emergency department. The exact circumstances are unclear though she denies known provoking factors. There is positive loss of consciousness. She was able to ambulate afterwards however complains of back of the head pain as well as left hip pain. Pain is moderate intensity and worse with movement patient is noted to be hypertensive, no chest pain, no other recent changes to health or known specific provoking or exacerbating factors identified. Review of Systems General: Reports: 10 or more systems reviewed and unremarkable except in HPI and below PFSH ED PFSH: Medical History Abdominal aortic aneurysm (AAA) 3.0 cm to 5.0 cm in diameter in female 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 Hazel, 2014 S/P cataract extraction and insertion of intraocular lens bilateral S/P cervical spinal fusion ACDFF Dr. Dawn 12/07/2015 S/P right coronary artery (RCA) stent placement (~05/2019) Family History Other Cancer Rheumatoid arthritis Denies family history of Chronic kidney disease (CKD) Systemic lupus erythematosus (SLE) in adult Lung disease Hypertension Social History Smoking and tobacco status: former smoker Alcohol intake: current Alcohol intake frequency: holidays/special occasions only History of recent travel: No (12/10/19) Physical Exam Narrative: EXAM NARRATIVE: GENERAL/CONSTITUTIONAL -chronically ill-appearing. No acute distress. Eyes - PERRL, no conjunctival injection ENMT - Atraumatic external nose and ears. Jaw alignment normal. No septal hematoma or obvious other facial trauma. Contusion noted to back of head without active bleeding or laceration. Moist mucous membranes NECK - supple. trachea midline CARDIOVASCULAR - regular rate and rhythm. Peripheral pulses 2+ and equal RESPIRATORY -clear to auscultation bilaterally. No retractions or accessory muscle use. ABDOMEN/GI - Nontender/Nondistended. No tenderness to percussion or evidence of peritonitis MSK -no obvious extremity deformity. Left hip is tender to palpation. SKIN - Warm, Dry NEURO - alert and appropriately oriented. strength and sensation intact. Moves all extremities equally. PSYCH - Appropriate mood and affect Course ED course: - Patient was seen and evaluated by me at bedside - Patient placed on cardiac monitors, IV access obtained - Initial evaluation notable for exam as noted above, nontoxic. - Labs notable for no significant abnormality to explain patient's fall, delta troponin negative. - Imaging notable for no acute intracranial hemorrhage or mass related to trauma. There is a suspected transverse process fracture of C2 with recommended vascular imaging which was ordered, no evidence of vascular compromise. Thyroid nodule discussed. No other traumatic injury identified - Upon serial reexamination after treatment the patient was improved - Based on patient history, evaluation, labs, and imaging as interpreted the most likely cause of the patient's condition is fall of uncertain cause with C2 transverse process fracture - The results of ED evaluation were discussed with the patient including prescriptions and/or symptomatic cares (if applicable) including appropriate and responsible use, followup plan, and return precautions. The patient verbalized understanding and felt safe for discharge. - Patient discharged in satisfactory condition. Vital Signs: Vital signs: Vital Signs Temperature 98 F 10/31/21 18:32 Pulse Rate 84 10/31/21 23:28 Respiratory Rate 18 10/31/21 23:28 Blood Pressure 201/99 10/31/21 23:28 Pulse Oximetry 99 10/31/21 23:28 MDM - Fall Medical Records: Attestation: I reviewed the patient's medical records. Lab Data: Attestation: I reviewed the patient's lab results. Labs: Lab Results 12/01/21 12/01/21 12/01/21 20:30 20:30 20:30 WBC 7.9 10^3/uL 10^3/ uL (4.0-10.0) RBC 5.04 10^6/uL 10^6 /uL (4.1-5.3) Hgb 12.9 g/dL g/dL (11.5-15.3) Hct 41.6 % % (37.0-47.0) MCV 82.5 fl fl (81-99) MCH 25.6 pg L pg (28.0-34.0) MCHC 31.0 g/dL g/dL (30.0-36.0) RDW 15.3 % H % (12.1-15.1) Plt Count 287 10^3/cmm 10^3 /cmm (130-400) MPV 10.7 fL H fL (7.4-10.4) Neut % (Auto) 70.0 % % Lymph % (Auto) 18.0 % % [place] % (Auto) 10.3 % % Eos % (Auto) 1.0 % % Baso % (Auto) 0.6 % % Neut # (Auto) 5.49 10^3/uL 10^3 /uL (1.8-7.7) Lymph # (Auto) 1.4 10^3/uL 10^3/ uL (0.8-4.8) [place] # (Auto) 0.8 10^3/uL 10^3/ uL (0.2-0.9) Eos # (Auto) 0.1 10^3/uL 10^3/ uL (0.0-0.8) Baso # (Auto) 0.1 10^3/uL 10^3/ uL (0.0-0.1) Nucleated RBC % (a uto) 0 % % Nucleated RBCs # 0.0 /100WBC /100W BC Sodium 140 mmol/L mmol/L (136-145) Potassium 3.3 mmol/L L mmol /L (3.5-5.1) Chloride 103 mmol/L mmol/L (98-107) Carbon Dioxide 23 mmol/L mmol/L (22-29) Anion Gap 17.3 (5-19) BUN 15 mg/dL mg/dL (8-23) Creatinine 0.9 mg/dL mg/dL (0.5-0.9) GFR Calculation Not Reportable Glucose 88 mg/dL mg/dL (65-115) Calculated Osmolal ity 290 mOsm/kg mOsm/ kg (285-295) Calcium 9.3 mg/dL mg/dL (8.5-10.5) Total Bilirubin 0.5 mg/dL mg/dL (0.15-1.2) AST 20 U/L U/L (0-32) ALT 14 U/L U/L (0-33) Alkaline Phosphata se 145 IU/L H IU/L (35-105) Troponin T Baselin e 14 ng/L H ng/L (0-10) Troponin T 120 Min haroldo Delta Troponin T Total Protein 6.1 g/dL L g/dL (6.6-8.7) Albumin 4.2 g/dL g/dL (3.5-5.2) Globulin 1.9 g/dL g/dL (1.3-4.6) 10/31/21 22:26 WBC RBC Hgb Hct MCV MCH MCHC RDW Plt Count MPV Neut % (Auto) Lymph % (Auto) [place] % (Auto) Eos % (Auto) Baso % (Auto) Neut # (Auto) Lymph # (Auto) [place] # (Auto) Eos # (Auto) Baso # (Auto) Nucleated RBC % (a uto) Nucleated RBCs # Sodium Potassium Chloride Carbon Dioxide Anion Gap BUN Creatinine GFR Calculation Glucose Calculated Osmolal ity Calcium Total Bilirubin AST ALT Alkaline Phosphata se Troponin T Baselin e Troponin T 120 Min haroldo 13.76 ng/L H ng/L (0-10) Delta Troponin T -0.24 ABS# L ABS# (0-10) Total Protein Albumin Globulin EKG Data^: EKG 1: Attestation: I personally reviewed and interpreted this EKG as follows: EKG interpretation date: 10/31/21 EKG interpretation time: 21:04 Interpretation: Twelve-lead EKG shows a regular rhythm at a rate of 70. MO interval 132, QRS duration 90, QTc 450. Normal axis. Interpretation: Sinus rhythm. Discharge Plan Discharge Patient Disposition: Home Clinical Impression: Fall, Closed fracture of transverse process of cervical vertebra, Hypertension, essential Condition: Stable Prescriptions: No Action atorvastatin 40 mg tablet 40 mg PO DAILY Qty: 30 RF: 6 Aspirin Low Dose 81 mg tablet,delayed release (DR/EC) 81 mg PO DAILY Qty: 30 RF: 6 carvedilol 25 mg tablet 37.5 mg PO BID Qty: 90 RF: 6 clopidogrel 75 mg tablet 75 mg PO DAILY Qty: 30 RF: 6 isosorbide mononitrate 30 mg tablet extended release 24 hr 15 mg PO DAILY Qty: 15 RF: 6 cholecalciferol (vitamin D3) [Vitamin D3] 25 mcg (1,000 unit) Capsule 25 mcg PO DAILY 30 Days Qty: 30 RF: 0 hydralazine 25 mg tablet 75 mg PO TID RF: 0 amlodipine 10 mg tablet 10 mg PO DAILY RF: 0 nitroglycerin 0.4 mg tablet, sublingual 0.4 mg sublingual Q5M PRN (Reason: Chest Pain) RF: 0 albuterol sulfate 90 mcg/actuation Hfa Aerosol Inhaler 2 puff INHALATION QID PRN (Reason: Shortness Of Breath) RF: 0 Discharge Orders: Discharge ED (Routine); Ordered 10/31/21 Ordered By: Hank Garcia Referrals: Silvia Peng MD [Primary Care Provider] - Discharge Diet: Usual diet Discharge Activity: Increase activity as tolerated Patient Instructions: Fall Prevention for Older Adults (ED), Hypertension (ED), Transverse Process Fracture (ED) Activity Restrictions/Additional Instructions: Thank you for visiting the emergency department. You were seen and evaluated for fall. You were found to have a transverse process fracture of the second cervical vertebrae. This region contains blood vessels which do not appear to be affected. Please follow-up with orthopedics (our rifle case repairer will be messaged for scheduling) and your primary care provider. Your blood pressure was significantly elevated, please follow-up with your primary care provider regarding this as well. Please return to the emergency department for increased pain, any new weakness, confusion, decreased responsiveness, numbness, tingling, or anything else that you are concerned about and feel needs emergency department evaluation. Coding Level of Care Code ED Video Game Programmer for Loulou Borrero
--- NOTE | 2021-10-31 19:30 | XRR_ITS ---
PROCEDURE INFORMATION: Exam: XR Chest Exam date and time: 10/31/2021 7:30 PM Age: 71 years old Clinical indication: Injury or trauma; Swelling (edema); Injury details: Fall today on pavement, hit head TECHNIQUE: Imaging protocol: XR of the chest. Views: 1 view. COMPARISON: CR XR chest 1V portable [id number] 09/09/2021 11:20 AM FINDINGS: Lungs: Unremarkable. No consolidation. Pleural spaces: Unremarkable. No pleural effusion. No pneumothorax. Heart/Mediastinum: Unremarkable. No cardiomegaly. Bones/joints: Unremarkable. XR/XR chest 1V portable [id number] IMPRESSION: No acute findings. Radiation Dose CTDIVOL = (mGy): DLP = (mGy-cm)
--- NOTE | 2021-10-31 19:30 | CTR_ITS ---
PROCEDURE INFORMATION: Exam: CT Angiography Neck With Contrast Exam date and time: 10/31/2021 7:30 PM Age: 71 years old Clinical indication: Abnormal findings; Other abnormal imaging; Prior surgery; Surgery type: Fall today; Additional info: Abnormal CT TECHNIQUE: Imaging protocol: Computed tomography angiography of the neck with contrast. 3D rendering (Not supervised by radiologist): MIP and/or 3D reconstructed images were created by the technologist. Radiation optimization: All CT scans at this facility use at least one of these dose optimization techniques: automated exposure control; mA and/or kV adjustment per patient size (includes targeted exams where dose is matched to clinical indication); or iterative reconstruction. Contrast material: VISI 320; Contrast volume: 95 ml; Contrast route: INTRAVENOUS (IV); COMPARISON: CT neck w con* [id number] 09/02/2017 9:59 AM RADIATION DOSE METRICS: Total DLP (mGy-cm): 1399.83 FINDINGS: Right common carotid artery: No stenosis. No dissection or occlusion. Right internal carotid artery: No stenosis of the extracranial segment. No dissection or occlusion. Right external carotid artery: No occlusion or stenosis of the origin. Left common carotid artery: No stenosis. No dissection or occlusion. Left internal carotid artery: No stenosis of the extracranial segment. No dissection or occlusion. Left external carotid artery: No occlusion or stenosis of the origin. Right vertebral artery: No stenosis. No dissection or occlusion. Left vertebral artery: No stenosis. No dissection or occlusion. Aorta: There is moderate atherosclerotic disease. Thyroid: Multiple left lobe thyroid lesions, largest is 2.7 cm. Soft tissues: Normal. No significant soft tissue swelling. Bones/joints: Anterior cervical fixation hardware is in place. Other findings: No dissection. No significant stenosis. CT/CT angio neck [id number] IMPRESSION: 1. No dissection. 2. No significant stenosis. 3. Multiple left lobe thyroid lesions, largest is 2.7 cm. Follow-up non-emergent thyroid ultrasound is recommended. COMMENTS: Consistent with the [employer]'s Incidental Findings Committee white paper (J Am Missy Radiol 2015): In patients aged 35 years and older with an incidental thyroid nodule equal to or greater than 1.[address], MRI or extrathyroidal US, further evaluation with dedicated thyroid US is recommended for patients with normal life expectancy and without comorbidities. For smaller nodules without suspicious features, no further evaluation or follow up is recommended. REFERENCES: NASCET CRITERIA. The degree of internal carotid artery stenosis is based on NASCET criteria. Normal is no stenosis. Mild is less than 50% stenosis. Moderate is 50-69% stenosis. Severe is 70% to 99% stenosis. Total occlusion is no detectable patent lumen. Radiation Dose CTDIVOL = (mGy): DLP = 1399.83 (mGy-cm)
--- NOTE | 2021-10-31 19:30 | XRR_ITS ---
PROCEDURE INFORMATION: Exam: XR Left Hip Exam date and time: 10/31/2021 7:30 PM Age: 71 years old Clinical indication: Hip pain; Left hip; Additional info: Fall, pain TECHNIQUE: Imaging protocol: XR Left hip. Views: 2 or 3 views hip with pelvis when performed. COMPARISON: CT angio chest abdomen pelvis 09/09/2021 1:20 PM FINDINGS: Bones/joints: Unremarkable. No acute fracture. Soft tissues: Unremarkable. XR/XR hip LT 2-3V wo/w pel* [id number] IMPRESSION: No acute findings. Radiation Dose CTDIVOL = (mGy): DLP = (mGy-cm)
--- NOTE | 2021-10-31 19:31 | ECG_ITS ---
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 Measurements Intervals [place] Rate: 70 P: 79 MO: 132 QRS: -11 QRSD: 90 T: 55 QT: 430 QTc: 465 Interpretive Statements SINUS RHYTHM Compared to ECG 09/09/2021 13:12:08 No significant changes Electronically Signed On 10-31-2021 23:47:48 WOOL HAT FORMING MACHINE TENDER by Karime Solano M.D. [id number]
[2021-10-31 20:44] LABS: Basophils # 0.1 10^3/uL (0.0-0.1); Basophils % 0.6 %; Eosinophils # 0.1 10^3/uL (0.0-0.8); Hematocrit 41.6 % (37.0-47.0); Hemoglobin 12.9 g/dL (11.5-15.3); Lymphocytes # 1.4 10^3/uL (0.8-4.8); Mean Corpuscular Hemoglobin 25.6 pg (28.0-34.0); Mean Corpuscular Volume 82.5 fl (81-99); Mean Platelet Volume 10.7 fL (7.4-10.4); Monocytes # 0.8 10^3/uL (0.2-0.9); Monocytes % 10.3 %; Neutrophils # 5.49 10^3/uL (1.8-7.7); Nucleated Red Blood Cells % 0 %; Platelet Count 287 10^3/cmm (130-400); Red Blood Count 5.04 10^6/uL (4.1-5.3); Red Cell Distribution Width 15.3 % (12.1-15.1); White Blood Count 7.9 10^3/uL (4.0-10.0)
[2021-10-31] MEDS: acetaminophen 1,000 MG/100 ML PIGGYBACK 400 MG IV (20:56)
[2021-10-31 21:03] VITALS: BP 209/105; PULSE 70; RESP 16; O2SAT 97
--- NOTE | 2021-10-31 21:04 | PC.NURSE ---
Pt reported pain and cried out when c-spine was palpated, so she was placed in a c-collar.
[2021-10-31 21:10] LABS: Alanine Aminotransferase 14 U/L (0-33); Albumin Level 4.2 g/dL (3.5-5.2); Alkaline Phosphatase 145 IU/L (35-105); Anion Gap 17.3 (5-19); Aspartate Amino Transferase 20 U/L (0-32); Blood Urea Nitrogen 15 mg/dL (8-23); Calcium 9.3 mg/dL (8.5-10.5); Carbon Dioxide 23 mmol/L (22-29); Chloride 103 mmol/L (98-107); Creatinine Clr Calc Pharmacy 52.1916; Globulin 1.9 g/dL (1.3-4.6); Glucose 88 mg/dL (65-115); Osmolality Calculated 290 mOsm/kg (285-295); Potassium 3.3 mmol/L (3.5-5.1); Sodium 140 mmol/L (136-145); Total Bilirubin 0.5 mg/dL (0.15-1.2); Total Protein 6.1 g/dL (6.6-8.7)
[2021-10-31 21:15] LABS: Troponin(5th) Baseline 14 ng/L (0-10)
[2021-10-31] MEDS: iodixanol 320 mg/mL 100mL Btl IV (21:30)
[2021-10-31] MEDS: hyDRALAzine 20 mg/mL INJ 1 mL 10 MG IVP ×2 (22:13→23:15)
[2021-10-31 22:55] VITALS: BP 217/100; PULSE 85; RESP 20; O2SAT 100
[2021-10-31] MEDS: carvedilol 12.5 mg Tablet 37.5 MG PO (22:59)
[2021-10-31 23:01] LABS: Troponin 5 2HR 13.76 ng/L (0-10)
[2021-10-31 23:02] LABS: Troponin 5 2HR Delta -0.24 ABS# (0-10)
[2021-10-31] MEDS: potassium chloride ER 20 mEq Tablet PO (23:15)
[2021-10-31 23:28] VITALS: BP 201/99; PULSE 84; RESP 18; O2SAT 99
--- NOTE | 2021-11-02 09:48 | DCPLANNER ---
learning manager had message to schedule follow up appointment for patient with ortho. learning manager called the ortho clinic, spoke with Sommer, gave clinic patients information. learning manager was told that patients information would be printed and reviewed. Clinic will call patient with appointment information.
--- NOTE | 2021-11-12 07:41 | DCPLANNER ---
Patient had a follow up appointment scheduled for 11.06.[address] Shepard at [facility] - patient did attend appointment.
== END 2021-10-31 23:30 | disposition home or self-care (01) ==
PROVIDERS: Emergency Provider Emergency Medicine; PCP Family Medicine
DX: S12.190A Other displaced fracture of second cervical vertebra, initial encounter for closed fracture (principal); I10 Essential (primary) hypertension; Z79.82 Long term (current) use of aspirin; Z79.02 Long term (current) use of antithrombotics/antiplatelets; I25.10 Atherosclerotic heart disease of native coronary artery without angina pectoris; E78.5 Hyperlipidemia, unspecified; Z87.891 Personal history of nicotine dependence; W19.XXXA Unspecified fall, initial encounter
CPT/HCPCS: 70450; 70498; 71045; 72125; 73502; 80053; 84484; 85025; 93005; 96374; 96375; 96376; 99284; J0360; Q9967

== ENCOUNTER 2021-11-01 13:52 | Emergency (ER) | payer MEDICARE, OTHER, SELFPAY ==
--- NOTE | 2021-11-01 13:54 | CT_ITS ---
WS: [id number] CT HEAD TECHNIQUE: Noncontrast CT of the head obtained from the skullbase to the vertex. CLINICAL INFORMATION: STROKE ALERT COMPARISON: October 31, 2021 DLP: [address] scans at [facility] use at least one of these dose optimization techniques: automated e xposure control; mA and/or kV adjustment per patient size (includes targeted exams where dose is matc hed to clinical indication); or iterative reconstruction. FINDINGS: No evidence of intracranial hemorrhage or mass effect. Ventricular system and basal cisterns are cormier nt. Mild small vessel changes with moderate parenchymal volume loss. No extra-axial fluid collections . No evidence of mass or mass effect. Normal segura-white differentiation. Paranasal sinuses and mastoid air cells are well aerated. .Normal visualized soft tissues. CT/CT head wo con* [id number] IMPRESSION: 1. No evidence of intracranial hemorrhage or mass effect. 2. Mild small vessel changes with moderate parenchymal volume loss. 3. No acute intracranial findings. Notified Hank Garcia MD at 11/01/2021 2:05 PM.
--- NOTE | 2021-11-01 14:20 | ECG_ITS ---
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 Measurements Intervals [place] Rate: 54 P: 66 OR: 144 QRS: 26 QRSD: 89 T: 0 QT: 238 QTc: 225 Interpretive Statements SINUS BRADYCARDIA WITH SINUS ARRHYTHMIA NONSPECIFIC ST & T-WAVE ABNORMALITY Compared to ECG 10/31/2021 20:57:46 T-wave abnormality now present Sinus rhythm no longer present Electronically Signed On 11-01-2021 16:01:47 CORRESPONDENCE CLERK by Nikki Doe M.D. [id number]
--- NOTE | 2021-11-01 14:20 | CTR_ITS ---
PROCEDURE INFORMATION: Exam: CT Angiography Head With Contrast, Arteriography Exam date and time: 11/01/2021 2:20 PM Age: 71 years old Clinical indication: Other: Stroke alert; Prior surgery; Additional info: Stroke like symptoms TECHNIQUE: Imaging protocol: Computed tomography angiography of the head with contrast. Exam focused on the arteries. 3D rendering (Not supervised by radiologist): MIP and/or 3D reconstructed images were created by the technologist. Radiation optimization: All CT scans at this facility use at least one of these dose optimization techniques: automated exposure control; mA and/or kV adjustment per patient size (includes targeted exams where dose is matched to clinical indication); or iterative reconstruction. Contrast material: OMNI 350; Contrast volume: 95 ml; Contrast route: INTRAVENOUS (IV); COMPARISON: CT head wo con* [id number] 11/01/2021 1:46 PM RADIATION DOSE METRICS: Total DLP (mGy-cm): 1927.54 FINDINGS: ANTERIOR CIRCULATION: Right internal carotid artery: Atherosclerotic calcifications are seen involving the right cavernous internal carotid artery. There is mild stenosis involving the anterior turn of the right cavernous carotid artery and the right paraclinoid ICA. Right middle cerebral artery: Unremarkable. No occlusion or significant stenosis. No aneurysm. 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 The remaining right anterior cerebral artery is unremarkable. Left internal carotid artery: Atherosclerotic calcifications are seen involving the left cavernous internal carotid artery. Mild stenosis is present. Left middle cerebral artery: Unremarkable. No occlusion or significant stenosis. No aneurysm. Left anterior cerebral artery: Unremarkable. No occlusion or significant stenosis. No aneurysm. POSTERIOR CIRCULATION: Right vertebral artery: Unremarkable. No occlusion or significant stenosis. No aneurysm. Left vertebral artery: Unremarkable. No occlusion or significant stenosis. No aneurysm. Basilar artery: Unremarkable. No occlusion or significant stenosis. No aneurysm. Right posterior cerebral artery: Unremarkable. No occlusion or significant stenosis. No aneurysm. Left posterior cerebral artery: Unremarkable. No occlusion or significant stenosis. No aneurysm. Veins: The venous sinuses are patent. IMPRESSION: No acute abnormality. No large vessel occlusion PROCEDURE INFORMATION: Exam: CT Angiography Neck With Contrast Exam date and time: 11/01/2021 2:20 PM Age: 71 years old Clinical indication: Other: Stroke alert; Prior surgery; Additional info: Stroke like symptoms TECHNIQUE: Imaging protocol: Computed tomography angiography of the neck with contrast. 3D rendering (Not supervised by radiologist): MIP and/or 3D reconstructed images were created by the technologist. Radiation optimization: All CT scans at this facility use at least one of these dose optimization techniques: automated exposure control; mA and/or kV adjustment per patient size (includes targeted exams where dose is matched to clinical indication); or iterative reconstruction. Contrast material: OMNI 350; Contrast volume: 95 ml; Contrast route: INTRAVENOUS (IV); COMPARISON: CT head wo con* [id number] 11/01/2021 1:46 PM RADIATION DOSE METRICS: Total DLP (mGy-cm): 1927.54 FINDINGS: Right common carotid artery: There is mild atherosclerotic narrowing of the distal right common carotid artery. Right internal carotid artery: Atherosclerotic calcifications are present at the right carotid bifurcation and within the proximal right internal carotid artery. There is no stenosis of the proximal right internal carotid artery. Right external carotid artery: No occlusion or stenosis of the origin. Left common carotid artery: There is minimal atherosclerotic narrowing of the distal left common carotid artery. Left internal carotid artery: Atherosclerotic calcifications are present at the left carotid bifurcation and within the proximal left internal carotid artery. This is causing less than 25% stenosis of the proximal left ICA. Left external carotid artery: There is moderate/severe stenosis of the left external carotid artery origin. 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 Left vertebral artery: There is severe stenosis of the left vertebral artery origin. The remaining left vertebral artery is unremarkable. Aorta: Atherosclerotic calcifications are noted within the aortic arch and its branches. Thyroid: Several nonspecific thyroid nodules are present. The largest nodules in the inferior left thyroid gland, measuring 2.8 cm. A follow-up thyroid ultrasound is recommended. Soft tissues: Normal. No significant soft tissue swelling. Bones/joints: The patient is status post C5-C6 fusion with anterior plate and screw fixation. CT/CT angio headneck* [id number] IMPRESSION: 1. No acute abnormality. 2. Chronic findings as discussed above. COMMENTS: Consistent with the [employer]'s Incidental Findings Committee white paper (J Am Missy Radiol 2015): In patients aged 35 years and older with an incidental thyroid nodule equal to or greater than 1.[address], MRI or extrathyroidal US, further evaluation with dedicated thyroid US is recommended for patients with normal life expectancy and without comorbidities. For smaller nodules without suspicious features, no further evaluation or follow up is recommended. REFERENCES: NASCET CRITERIA. The degree of internal carotid artery stenosis is based on NASCET criteria. Normal is no stenosis. Mild is less than 50% stenosis. Moderate is 50-69% stenosis. Severe is 70% to 99% stenosis. Total occlusion is no detectable patent lumen. Radiation Dose CTDIVOL = (mGy): DLP = 1927.54~1927.54 (mGy-cm)
[2021-11-01 14:23] VITALS: BP 208/78; PULSE 58; RESP 22; TEMP 36.7; O2SAT 94; BMI 24.9
[2021-11-01] MEDS: iohexol 350 mg/mL 100 mL Btl IV (14:40)
[2021-11-01 14:43] LABS: Basophils % 0.5 %; Eosinophils % 0.5 %; Hematocrit 39.4 % (37.0-47.0); Hemoglobin 12.4 g/dL (11.5-15.3); Lymphocytes # 0.8 10^3/uL (0.8-4.8); Lymphocytes % 11.5 %; Mean Corpuscular HGB Conc 31.5 g/dL (30.0-36.0); Mean Corpuscular Hemoglobin 26.4 pg (28.0-34.0); Mean Corpuscular Volume 83.8 fl (81-99); Mean Platelet Volume 11.1 fL (7.4-10.4); Monocytes # 0.7 10^3/uL (0.2-0.9); Monocytes % 9.1 %; Neutrophils # 5.68 10^3/uL (1.8-7.7); Neutrophils % 78.1 %; Nucleated Red Blood Cells % 0 %; Platelet Count 265 10^3/cmm (130-400); Red Cell Distribution Width 15.6 % (12.1-15.1); White Blood Count 7.3 10^3/uL (4.0-10.0)
[2021-11-01 14:46] VITALS: TEMP 36.7
[2021-11-01 14:47] VITALS: PULSE 67
[2021-11-01 15:02] LABS: INR 1.05 (0.8-1.2); Partial Thromboplastin Time 26.5 SECONDS (23.9-36.7)
[2021-11-01] MEDS: labetalol 5 mg/mL SDV 20mL 10 MG IV (15:12)
--- NOTE | 2021-11-01 15:15 | PC.NURSE ---
Pt states she does not have to use the bathroom at this time, maybe later .
[2021-11-01 15:22] LABS: Alanine Aminotransferase 14 U/L (0-33); Alkaline Phosphatase 144 IU/L (35-105); Anion Gap 13.5 (5-19); Aspartate Amino Transferase 16 U/L (0-32); Blood Urea Nitrogen 15 mg/dL (8-23); Calcium 9.4 mg/dL (8.5-10.5); Carbon Dioxide 27 mmol/L (22-29); Chloride 103 mmol/L (98-107); Globulin 1.8 g/dL (1.3-4.6); Glucose 99 mg/dL (65-115); Osmolality Calculated 291 mOsm/kg (285-295); Potassium 3.5 mmol/L (3.5-5.1); Sodium 140 mmol/L (136-145); Total Bilirubin 0.7 mg/dL (0.15-1.2); Total Protein 5.8 g/dL (6.6-8.7)
--- NOTE | 2021-11-01 15:29 | PC.PHAR ---
pt verified some of her medications and pts verified some of the pts medications-pt and pts states they are unsure if the pt is taking the amlodipine 10mg daily and hydralazine 75mg tid last filled on 08/31/21 30d/s-notes are made in the pharmacy comments
--- NOTE | 2021-11-01 15:33 | W.ED.NEUROSD ---
HPI - Neuro Symptoms/Deficit General: Chief Complaint: Neuro Symptoms/Deficit Stated Complaint: FALL/ STROKE ALERT Time Seen by Provider: 11/01/21 14:16 Source: patient, EMS and old records reviewed History of Present Illness: HPI Narrative: 71-year-old female who is quite well-known to our facility presents to the emergency department chief complaint of syncope and collapse patient was seen here yesterday had a reported fall striking the back of her head in which she was sent to the ER which she had CT imaging of the head obtained came back negative patient was subsequently discharged home CT imaging was obtained as she is on Plavix. The patient was being checked on by home health care which is found to be unresponsive with some reported weakness noted to the right side of her body. Patient had no prior history of stroke she was a stroke activation per EMSs report the patient was having a mild confusion with difficulty with word finding. Unknown last well time. Onset (ago): hour(s) Location: left arm and left leg History of same: Yes Associated symptoms: Deny chest pain, headache(s), malaise, nausea or vomiting Review of Systems General: Reports: 10 or more systems reviewed and unremarkable except in HPI and below Const: Denies: fever(s), chills, fatigue or malaise Eyes: Denies: change in vision or blurry vision Card: Denies: chest pain or palpitations Resp: Denies: dyspnea or productive cough GI: Denies: abdominal pain, nausea or vomiting : Denies: flank pain Musc: Denies: extremity pain or extremity swelling Skin/Breast: Denies: rash or pruritus Neuro: Reports: weakness in extremities, lack of coordination, difficulty walking, confusion, Slurred speech present and involuntary movements; Denies: headache(s) Psych: Denies: anxiety or depression [place]/Lymph: Denies: easy bleeding All/Imm: Denies: urticaria, throat swelling or facial swelling PFS ED PFSH: Medical History Abdominal aortic aneurysm (AAA) 3.0 cm to 5.0 cm in diameter in female 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 Hazel, 2014 S/P cataract extraction and insertion of intraocular lens bilateral S/P cervical spinal fusion ACDFF Dr. Dawn 12/07/2015 S/P right coronary artery (RCA) stent placement (~05/2019) Family History Other Cancer Rheumatoid arthritis Denies family history of Chronic kidney disease (CKD) Systemic lupus erythematosus (SLE) in adult Lung disease Hypertension Social History Smoking and tobacco status: former smoker Alcohol intake: current Alcohol intake frequency: holidays/special occasions only History of recent travel: No (12/10/19) NIH stroke score NIHSS: Level Of Consciousness Questions - 1b: Both Correct Level Of Consciousness Commands - 1c: One Correct Best Gaze - 2: Normal Facial Palsy - 4: Normal Motor Arm Right - 5: Drift Motor Arm Left - 5: Drift Motor Leg Right - 6: No Drift Motor Leg Left - 6: No Drift Physical Exam Narrative: EXAM NARRATIVE: On exam patient has intermittent episodes of intermittent difficulty with speaking and not patient was not attempting to raise her legs upon questioning concerning for malinger signs present patient was having some reported flaccid paralysis to left side of body including left arm drop on my assessment patient was able to volitionally stop her arm from striking her head as well as has a positive Olea's sign on exam. Const: COMMON NORMALS: no acute distress, patient oriented x3 (Patient has episode of slurred speech and difficulty with word finding appe) and healthy appearing HENMT: COMMON NORMALS: normocephalic and atraumatic HEAD & SCALP: normocephalic and atraumatic Eye: COMMON NORMALS: Equal, round and reactive pupils present and EOMs intact bilaterally PUPIL: Yes Equal, round and reactive pupils present Neck/C-Spine: COMMON NORMALS: full ROM, supple and no JVD Lymph: LYMPHATIC: no lymphadenopathy noted Chest: COMMONS NORMALS: normal inspection of the chest and normal palpation of entire chest wall Resp: COMMON NORMALS: normal respiratory effort, No retractions and clear to auscultation bilaterally EFFORT & INSPECTION: Yes able to speak in complete sentences and Yes symmetric chest movement AUSCULTATION: clear to auscultation bilaterally Cardio: COMMON NORMALS: no JVD, regular rate and regular rhythm RATE: regular rate RHYTHM: regular rhythm GI: COMMON NORMALS: Normal to inspection, nondistended, normoactive bowel sounds present, Soft to palpation and non-tender INSPECTION: Yes normal to inspection PALPATION: Yes Soft to palpation : COMMON NORMALS: Yes no CVA tenderness BLADDER/KIDNEY EXAM: Yes no CVA tenderness Back/Pelvis: COMMON NORMALS: no CVA tenderness Extremity: COMMON NORMALS: normal to inspection and full ROM Neuro: COMMON NORMALS: patient oriented x3 (Patient has episode of slurred speech and difficulty with word finding appe) and CN's II-XII intact bilaterally GAIT: Yes Unable to assess gait SENSORY EXAM: Yes extremities Psych: COMMON NORMALS: mental status grossly normal, Normal thought process present, cooperative and normal affect THOUGHT PROCESS: Normal thought process present Skin: COMMON NORMALS: no rashes or lesions noted GENERAL SKIN EXAM: no rashes or lesions noted Course ED course: Upon patient's initial symptoms patient was originally a stroke activation however we are unsure time of onset as well as I have great concerns due to patient's positive Olea sign that should there may be volitional secondary gain for the patient's symptoms and nonspecific findings upon question the patient is on this her slurred speech disappeared when she had fluent speech with no speech difficulty. We will continue to get the CT of the head without contrast and CTA to further rule this out upon reassessment about a half an hour after my initial 1 patient was found have clear speech steady gait with no obvious focal neuro deficits expect once imaging is returned we will do a neuro consult in which patient can be evaluated for potential need for MRI. Vital Signs: Vital signs: Vital Signs Temperature 98.1 F 11/01/21 14:46 Pulse Rate 67 11/01/21 14:47 Respiratory Rate 22 H 11/01/21 14:23 Blood Pressure 208/78 11/01/21 14:23 Pulse Oximetry 94 11/01/21 14:23 MDM - Neuro Symptoms/Deficit MDM Narrative: Medical decision making narrative: Patient's lab work imaging came back reassuring patient's altered mentation noted previously is totally resolved she is back at her baseline unsure what this was created by do not believe was a TIA specialist patient been taking Plavix as her symptoms were nonspecific. Patient was provided discharge information about syncope advised further follow-up with primary care in 2 to 3 days for further evaluation medication regimen which was advised to return the interim if any of her symptoms persist or worse. Lab Data: Labs: Lab Results 11/01/21 11/01/21 11/01/21 14:15 14:15 14:30 WBC 7.3 10^3/uL 10^3/ uL (4.0-10.0) RBC 4.70 10^6/uL 10^6 /uL (4.1-5.3) Hgb 12.4 g/dL g/dL (11.5-15.3) Hct 39.4 % % (37.0-47.0) MCV 83.8 fl fl (81-99) MCH 26.4 pg L pg (28.0-34.0) MCHC 31.5 g/dL g/dL (30.0-36.0) RDW 15.6 % H % (12.1-15.1) Plt Count 265 10^3/cmm 10^3 /cmm (130-400) MPV 11.1 fL H fL (7.4-10.4) Neut % (Auto) 78.1 % % Lymph % (Auto) 11.5 % % [place] % (Auto) 9.1 % % Eos % (Auto) 0.5 % % Baso % (Auto) 0.5 % % Neut # (Auto) 5.68 10^3/uL 10^3 /uL (1.8-7.7) Lymph # (Auto) 0.8 10^3/uL 10^3/ uL (0.8-4.8) [place] # (Auto) 0.7 10^3/uL 10^3/ uL (0.2-0.9) Eos # (Auto) 0.0 10^3/uL 10^3/ uL (0.0-0.8) Baso # (Auto) 0.0 10^3/uL 10^3/ uL (0.0-0.1) Nucleated RBC % (a uto) 0 % % Nucleated RBCs # 0.0 /100WBC /100W BC PT 14.10 SECONDS SEC ONDS (12.1-14.9) INR 1.05 (0.8-1.2) APTT 26.5 SECONDS SECO NDS (23.9-36.7) Sodium 140 mmol/L mmol/L (136-145) Potassium 3.5 mmol/L mmol/L (3.5-5.1) Chloride 103 mmol/L mmol/L (98-107) Carbon Dioxide 27 mmol/L mmol/L (22-29) Anion Gap 13.5 (5-19) BUN 15 mg/dL mg/dL (8-23) Creatinine 1.0 mg/dL H mg/dL (0.5-0.9) GFR Calculation Not Reportable Glucose 99 mg/dL mg/dL (65-115) Calculated Osmolal ity 291 mOsm/kg mOsm/ kg (285-295) Calcium 9.4 mg/dL mg/dL (8.5-10.5) Total Bilirubin 0.7 mg/dL mg/dL (0.15-1.2) AST 16 U/L U/L (0-32) ALT 14 U/L U/L (0-33) Alkaline Phosphata se 144 IU/L H IU/L (35-105) Total Protein 5.8 g/dL L g/dL (6.6-8.7) Albumin 4.0 g/dL g/dL (3.5-5.2) Globulin 1.8 g/dL g/dL (1.3-4.6) Discharge Plan Discharge Patient Disposition: Home Clinical Impression: Syncope and collapse Altered mental status, unspecified Qualifiers: Altered mental status type: transient alteration of awareness Qualified Code(s): R40.4 - Transient alteration of awareness Condition: Stable Prescriptions: No Action atorvastatin 40 mg tablet 40 mg PO DAILY Qty: 30 RF: 6 Aspirin Low Dose 81 mg tablet,delayed release (DR/EC) 81 mg PO DAILY Qty: 30 RF: 6 carvedilol 25 mg tablet 37.5 mg PO BID Qty: 90 RF: 6 clopidogrel 75 mg tablet 75 mg PO DAILY Qty: 30 RF: 6 isosorbide mononitrate 30 mg tablet extended release 24 hr 15 mg PO DAILY Qty: 15 RF: 6 cholecalciferol (vitamin D3) [Vitamin D3] 25 mcg (1,000 unit) Capsule 25 mcg PO DAILY 30 Days Qty: 30 RF: 0 hydralazine 25 mg tablet 75 mg PO TID RF: 0 amlodipine 10 mg tablet 10 mg PO DAILY RF: 0 nitroglycerin 0.4 mg tablet, sublingual 0.4 mg sublingual Q5M PRN (Reason: Chest Pain) RF: 0 albuterol sulfate 90 mcg/actuation Hfa Aerosol Inhaler 2 puff INHALATION QID PRN (Reason: Shortness Of Breath) RF: 0 Discharge Orders: Discharge ED (Routine); Ordered 11/01/21 Ordered By: Frederic Will Referrals: Silvia Peng MD [Primary Care Provider] - Discharge Diet: Advance as tolerated Discharge Activity: Resume usual activity and Increase activity as tolerated Patient Instructions: Syncope (ED), Lightheadedness (ED), Altered Mental Status (ED), Disorders of Consciousness (DC), Opioid Safety Activity Restrictions/Additional Instructions: Please follow-up with your primary care doctor in 2 to 3 days as needed for further assessment and management and return the interim if any of her symptoms persist or worse. 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
--- NOTE | 2021-11-01 15:36 | PC.NURSE ---
Pt arrived via EMs from home where she lives with her . EMS reports pt has PT that comes out to pts home during the week. This morning PT arrived and started therapy with pt, pt had an acute syncopal episode, landing on the bed. Pt had a short LOC and when she woke pt appeared to be disoriented and showing signs of AMS. EMS arrived and found pt to have slurred speech, pt appeared to be aphasic, had a left arm drift and was unable to lift her left leg. EMS denies any facial drift, time of onset was 1220 per PT. Per EMS pt fell yesterday and hit her head, pt was transported in to this ER yesterday and discharged home. Pts blood glucose 122, pts arrived to ER and was brought to CT, then to room. Pt uncooperative with this RN when first in room, once Dr. Will was in room performing the assessment pt was awake, alert and able to respond to all questions, including person, place, time and date. Stroke alert cancelled @ 1414. Pts GCS 15, NIH 0, no deficiets noted. Pt placed on monitor.
== END 2021-11-01 18:13 | disposition home or self-care (01) ==
PROVIDERS: Emergency Provider Emergency Medicine; PCP Family Medicine
DX: R55 Syncope and collapse (principal); R40.4 Transient alteration of awareness; Z79.82 Long term (current) use of aspirin; Z79.02 Long term (current) use of antithrombotics/antiplatelets; I25.10 Atherosclerotic heart disease of native coronary artery without angina pectoris; E78.5 Hyperlipidemia, unspecified; I10 Essential (primary) hypertension; Z87.891 Personal history of nicotine dependence
CPT/HCPCS: 70450; 70496; 70498; 80053; 85025; 85610; 85730; 93005; 96374; 99284; J3490; Q3014; Q9967

== ENCOUNTER 2021-11-19 11:27 | Emergency (ER) | payer MEDICARE, OTHER, SELFPAY ==
--- NOTE | 2021-11-19 11:39 | ECG_ITS ---
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
--- NOTE | 2021-11-19 11:39 | XR_ITS ---
WS: [id number] Exam: XR chest 1V portable [id number] Date/Time of Exam: 11/19/2021 11:39 AM Reason For Exam: dyspnea Comparison 10/31/2021. The lungs are clear and fully expanded. Normal cardiomediastinal silhouette. No pleural effusions. An terior fusion of the lower cervical spine with hardware. XR/XR chest 1V portable [id number] IMPRESSION: 1. No acute cardiopulmonary finding.
[2021-11-19 11:44] VITALS: PULSE 59; RESP 17; O2SAT 98
--- NOTE | 2021-11-19 12:06 | CT_ITS ---
WS: [id number] CTA CHEST ABDOMEN AND PELVIS TECHNIQUE: Noncontrast plus contrast enhanced CTA of the chest, abdomen, and pelvis with coronal and sagittal reformatted images and additional MIP Images. CLINICAL INFORMATION: rule out dissection COMPARISON: CTA September 09, 2021 DLP: 1273.[address] scans at [facility] use at least one of these dose optimization techniques: automated e xposure control; mA and/or kV adjustment per patient size (includes targeted exams where dose is matc hed to clinical indication); or iterative reconstruction. FINDINGS: No evidence of intramural hematoma. No evidence of thoracic or abdominal aortic dissection. Abdominal aortic aneurysm with peripheral mural thrombus is unchanged since September 09, 2021. This measures ap proximately 3.7 x 3.8 cm AP by transverse. Aneurysmal right common iliac artery measuring 2.1 cm is u nchanged. Peripheral mural thrombus in the upper abdominal aorta also unchanged. 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 SMA is patent. Hepatomegaly. Spleen size upper limits of normal. Small splenic cyst or hemangioma unchanged. Pancrea s appears normal. Adrenal glands are normal. Normal right renal parenchymal enhancement. Atrophic lef t kidney. Stable left renal cyst. Diverticulosis. No evidence of acute diverticulitis. Small amount of free fluid in the pelvis. No radha dence of high-grade small or large bowel obstruction. Stable left thyroid nodule. No mediastinal or hilar lymphadenopathy. Lungs are well aerated. No acute pulmonary infiltrates. No focal pneumonia or pleural fluid. No axillary lymphadenopathy. Postoperati ve changes L3-[address]/CT angio chest abdomen pelvis IMPRESSION: 1. No evidence of thoracic or abdominal aortic dissection. 2. Stable infrarenal abdominal aortic aneurysm described above with peripheral mural thrombus. 3. Atrophic left kidney. 4. Both lungs are well aerated. No acute pulmonary infiltrates. 5. Stable hepatomegaly. 6. Stable right common iliac artery aneurysm 7. No significant changes compared to previous.
--- NOTE | 2021-11-19 12:25 | ED_ITS ---
HPI - General Adult General: Chief complaint: Chest Pain Stated complaint: CHEST WALL PAIN Time Seen by Provider: 11/19/21 11:47 History of Present Illness: HPI narrative: CC: Chest Pain HPI: This is a [71]yo patient hx of abdominal aortic aneurysm, R common iliac aneurysm, CAD, HTN, HLD presenting to the ED complaining of acute sudden onset intermittent achy chest pain that started this morning around 8am. Patient reports that the pain is so significant that she called EMS. Patient took 3 doses of nitroglycerin en route without any improvement in symptoms. No associated with shortness of breath, chest pain or dyspnea on exertion. Pain is not tearing in nature and does not radiate to the back. Pain not associated with vomiting or PO intake. Denies any recent sympathomimetic drug use. Patient denies any cough. Denies palpitations, dysphagia, diaphoresis, radiation of pain to bilateral arms, jaw. Denies F/N/V/D. Patient denies any recent immobility, surgery, unilateral leg swelling, or prior PE. Patient denies any orthopnea. Patient Onset: this morning at 8am Duration: ongoing since this AM Location: home Severity: mild/moderate Review of Systems Narrative: Constitutional: No fever, no chills. HEENT: No vision changes, no sore throat. CV: +chest pain, no palpitations. PULM: No cough, No dyspnea. GI: No abdominal pain, no N/V/D. : No dysuria, no frequency, no hematuria. MSKEL: No arthralgias, no edema. SKIN: No new rashes, no lesions. NEURO: No headache, no focal weakness. HEME: No easy bleeding or bruising. PSYCH: No change in mood or affect. PFSH ED PFSH: Medical History Abdominal aortic aneurysm (AAA) 3.0 cm to 5.0 cm in diameter in female 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 Hazel, 2013 S/P cataract extraction and insertion of intraocular lens bilateral S/P cervical spinal fusion ACDFF Dr. Dawn 12/07/2015 S/P right coronary artery (RCA) stent placement (~05/2019) Family History Other Cancer Rheumatoid arthritis Denies family history of Chronic kidney disease (CKD) Systemic lupus erythematosus (SLE) in adult Lung disease Hypertension Social History Smoking and tobacco status: former smoker Alcohol intake: current Alcohol intake frequency: holidays/special occasions only History of recent travel: No (12/10/19) Physical Exam Narrative: EXAM NARRATIVE: Head: Atraumatic, normocephalic Eyes: PERRL, EOMI, conjunctiva without injection ENT: Throat without erythema, lesions or exudate, MMM NECK: Supple, trachea midline, no JVD LUNGS: LCTA CV: RRR, S1,S2, no murmurs, rubs, gallops. 1+ peripheral pulse in RUE/2+ peripheral uplse in the LUE ABDOMEN: Soft, nontender, nondistended, BS x4, no rigidity, no guarding, no rebound EXTREMITY: Normal ROM, no pitting edema, no calf tenderness to palpation SKIN: No rash or erythema NEURO: Awake and alert. No focal motor deficits. PSYCH: Normal mood and affect. Course Vital Signs: Vital signs: Vital Signs Pulse Rate 69 11/19/21 16:37 Respiratory Rate 15 11/19/21 16:37 Pulse Oximetry 94 11/19/21 16:37 MDM - General Adult MDM Narrative: Medical decision making narrative: [71]yo patient w/ hx of abdominal aortic aneurysm, R common iliac anneurysm, CAD, HLD, HTN presenting to the ED with evaluation of new onset sharp chest pain since this AM. No signs of fluid overload, AAOx3, neuro exam intact. Patient had pulse difference and the decision was made to evaluate for dissection. CTA negative for any acute findings. Workup: ECG, CXR, CBC, BMP, Troponin x 2 Interventions: ASA, morphine Findings: ECG: No overt evidence of STEMI, hyperacute T waves, localizable STD or T wave inversions. No evidence of Brugada?s sign, delta wave, epsilon wave, significantly prolonged QTc, or malignant arrhythmia. No Q waves. Other Labs unremarkable for emergent problems. [3:45pm] On reassessment, the patient is HDS, no complaints of persistent chest pain in the ED after evaluation. ECG is non-ischemic. Workup today is unremarkable. Doubt ACS/PE or other emergent causes of chest pain. Doubt ACS/PE or other emergent causes of chest pain. No suspicion for aortic disection as CTA negative. No suspicion for PE given no pleuritic chest pain, recent immobilization or surgery hemoptysis, or other VTE risk factors. EKG is non- ischemic. XR normal. Delta from troponin wnl. I performed shared decision-making with patient regarding admission versus discharge today, and patient prefers to be discharged. I have discussed given patient's risk factors that she would better off admitted to the hospital for close observation. Upon hearing this, patient elects to go home and follow up with Cardiology next week. Patient tells me she has had a recent normal stress test in August and would like to follow closely with cardiology. I explained the risks of leaving the hospital today including lethal arrythemia, [place], and even . Patient verbalizes understanding of these discussed risk and elect for the alternative of following up earlier next week to see Cardiology. Patient verbalizes understanding to return for any worsening symptoms including chest pain, dyspnea, fatigue, arm pain/jaw pain/back pain or any new or concerning issues. I have given patient follow up with our correctional case records supervisor to be seen by our outpatient Cardiology for evaluation of chest pain. Patient aware of a call from our correctional case records supervisor to schedule for appointment(s) and verbalizes understanding of the importance of following up. Incidental findings of abnormal aortic aneurysm w/ mural thrombus discussed extensively with patient. The findings does not appear to getting worse. Patient received a copy of the CT report with the documented findings. Patient is instructed to follow up urgently with specialists. Patient is instructed to follow up with PCP for further evaluation. Patient verbalizes understanding of everything discussed. Patient is given strict return precautions for any acute embolic occlusion or peripheral artery disease. Rx: Tylenol PRN pain Disposition: Discharge. Strict return precautions discussed with the patient with full understanding. Advised patient to follow up promptly with a primary care provider in 24-48 hrs if the patient has persistent symptoms. Given return instructions for any crushing/tearing chest pain, focal weakness, syncope or any new or concerning issues. Lab Data: Labs: Lab Results 11/19/21 11/19/21 11/19/21 13:42 13:42 13:42 WBC 4.9 10^3/uL 10^3/ uL (4.0-10.0) RBC 4.53 10^6/uL 10^6 /uL (4.1-5.3) Hgb 11.7 g/dL g/dL (11.5-15.3) Hct 37.4 % % (37.0-47.0) MCV 82.6 fl fl (81-99) MCH 25.8 pg L pg (28.0-34.0) MCHC 31.3 g/dL g/dL (30.0-36.0) RDW 15.1 % % (12.1-15.1) Plt Count 213 10^3/cmm 10^3 /cmm (130-400) MPV 11.0 fL H fL (7.4-10.4) Neut % (Auto) 70.4 % % Lymph % (Auto) 18.0 % % [place] % (Auto) 9.2 % % Eos % (Auto) 1.4 % % Baso % (Auto) 0.8 % % Neut # (Auto) 3.44 10^3/uL 10^3 /uL (1.8-7.7) Lymph # (Auto) 0.9 10^3/uL 10^3/ uL (0.8-4.8) [place] # (Auto) 0.5 10^3/uL 10^3/ uL (0.2-0.9) Eos # (Auto) 0.1 10^3/uL 10^3/ uL (0.0-0.8) Baso # (Auto) 0.0 10^3/uL 10^3/ uL (0.0-0.1) Nucleated RBC % (a uto) 0 % % Nucleated RBCs # 0.0 /100WBC /100W BC Sodium 143 mmol/L mmol/L (136-145) Potassium 4.2 mmol/L mmol/L (3.5-5.1) Chloride 106 mmol/L mmol/L (98-107) Carbon Dioxide 24 mmol/L mmol/L (22-29) Anion Gap 17.2 (5-19) BUN 19 mg/dL mg/dL (8-23) Creatinine 1.0 mg/dL H mg/dL (0.5-0.9) GFR Calculation Not Reportable Glucose 94 mg/dL mg/dL (65-115) Calculated Osmolal ity 298 mOsm/kg H mOs m/kg (285-295) Calcium 8.9 mg/dL mg/dL (8.5-10.5) Troponin T Baselin e 11 ng/L H ng/L (0-10) Troponin T 120 Min [place] Troponin T 11/19/21 15:43 WBC RBC Hgb Hct MCV MCH MCHC RDW Plt Count MPV Neut % (Auto) Lymph % (Auto) [place] % (Auto) Eos % (Auto) Baso % (Auto) Neut # (Auto) Lymph # (Auto) [place] # (Auto) Eos # (Auto) Baso # (Auto) Nucleated RBC % (a uto) Nucleated RBCs # Sodium Potassium Chloride Carbon Dioxide Anion Gap BUN Creatinine GFR Calculation Glucose Calculated Osmolal ity Calcium Troponin T Baselin e Troponin T 120 Min [place] 10.78 ng/L H ng/L (0-10) Delta Troponin T -0.22 ABS# L ABS# (0-10) Imaging Data^: Other Imaging: Radiologist's impression: [address] [address]HQ Scan ReportSigned Patient: Rosie Martinez AUnit #: [id number]: 1950cct#:[id number]/Sex: 71 / FADM Date: 11/19/21Loc: ERRoom/Bed:Attending Dr: Ordering Provider/Ordering MD: Wyatt Sparks MD Date of Service: 11/19/21 Procedure(s): CT angio chest abdomen pelvis Accession Number(s): [id number] Report Number: [id number] WS: [id number] CTA CHEST ABDOMEN AND PELVIS TECHNIQUE: Noncontrast plus contrast enhanced CTA of the chest, abdomen, and pelvis with coronal and sagittal reformatted images and additional MIP Images. CLINICAL INFORMATION: rule out dissection COMPARISON: CTA September 09, 2021 DLP: 1273.[address] scans at [facility] use at least one of these dose optimization techniques: automated exposure control; mA and/or kV adjustment per patient size (includes targeted exams where dose is matched to clinical indication); or iterative reconstruction. FINDINGS: No evidence of intramural hematoma. No evidence of thoracic or abdominal aortic dissection. Abdominal aortic aneurysm with peripheral mural thrombus is unchanged since September 09, 2021. This measures approximately 3.7 x 3.8 cm AP by transverse. Aneurysmal right common iliac artery measuring 2.1 cm is unchanged. Peripheral mural thrombus in the upper abdominal aorta also unchanged. 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 SMA is patent. Hepatomegaly. Spleen size upper limits of normal. Small splenic cyst or hemangioma unchanged. Pancreas appears normal. Adrenal glands are normal. Normal right renal parenchymal enhancement. Atrophic left kidney. Stable left renal cyst. Diverticulosis. No evidence of acute diverticulitis. Small amount of free fluid in the pelvis. No evidence of high-grade small or large bowel obstruction. Stable left thyroid nodule. No mediastinal or hilar lymphadenopathy. Lungs are well aerated. No acute pulmonary infiltrates. No focal pneumonia or pleural fluid. No axillary lymphadenopathy. Postoperative changes L3-[address]/CT angio chest abdomen pelvis IMPRESSION: 1. No evidence of thoracic or abdominal aortic dissection. 2. Stable infrarenal abdominal aortic aneurysm described above with peripheral mural thrombus. 3. Atrophic left kidney. 4. Both lungs are well aerated. No acute pulmonary infiltrates. 5. Stable hepatomegaly. 6. Stable right common iliac artery aneurysm 7. No significant changes compared to previous. Dictated By:Rory Leo MDSigned By:Rory Leo MDSigned Date/Time:11/19/21 1258DD/ [address] [address]EUrh ReportSigned Patient: Rosie Martinez #: [id number]: [id number]#:[id number]/Sex: 71 / FADM Date: 11/19/21Loc: ERRoom/Bed:Attending Dr: Ordering Provider/Ordering MD: Wyatt Sparks MD Date of Service: 11/19/21 Procedure(s): XR chest 1V portable [id number] Accession Number(s): [id number] Report Number: [id number] WS: [email or web address] Exam: XR chest 1V portable [id number] Date/Time of Exam: 11/19/2021 11:39 AM Reason For Exam: dyspnea Comparison 10/31/2021. The lungs are clear and fully expanded. Normal cardiomediastinal silhouette. No pleural effusions. Anterior fusion of the lower cervical spine with hardware. XR/XR chest 1V portable [id number] IMPRESSION: 1. No acute cardiopulmonary finding. Dictated By:Andresigned By:Randy Hayward Date/Time:11/19/21 1155DD/ 1154 Discharge Plan Discharge Patient Disposition: Home Clinical Impression: Chest pain Condition: Stable Prescriptions: New acetaminophen 500 mg tablet 500 mg PO Q6H PRN (Reason: pain) 5 Days Qty: 20 RF: 0 No Action atorvastatin 40 mg tablet 40 mg PO DAILY Qty: 30 RF: 6 Aspirin Low Dose 81 mg tablet,delayed release (DR/EC) 81 mg PO DAILY Qty: 30 RF: 6 carvedilol 25 mg tablet 37.5 mg PO BID Qty: 90 RF: 6 clopidogrel 75 mg tablet 75 mg PO DAILY Qty: 30 RF: 6 isosorbide mononitrate 30 mg tablet extended release 24 hr 15 mg PO DAILY Qty: 15 RF: 6 Vitamin D3 25 mcg (1,000 unit) capsule 25 mcg PO DAILY RF: 0 hydralazine 25 mg tablet 75 mg PO TID RF: 0 amlodipine 10 mg tablet 10 mg PO DAILY RF: 0 nitroglycerin 0.4 mg tablet, sublingual 0.4 mg sublingual Q5M PRN (Reason: Chest Pain) RF: 0 Discharge Orders: Discharge ED (Routine); Ordered 11/19/21 Ordered By: Wyatt Sparks Referrals: Silvia Peng MD [Primary Care Provider] - Discharge Diet: Advance as tolerated Discharge Activity: Resume usual activity Patient Instructions: Chest Pain (ED) Activity Restrictions/Additional Instructions: Come back to the emergency room if your chest pain worsens, have any fever or chills, worsening shortness of breath, worsening exertional lightheadedness, or any new or concerning complaints. Here's your CT report: [facility] [place], [place] [address]TI Scan ReportSigned Patient: Rosie Martinez #: [id number]: [id number]#:[id number]/Sex: 71 / FADM Date: 11/19/21Loc: ERRoom/Bed:Attending Dr: Ordering Provider/Ordering MD: Wyatt Sparks MD Date of Service: 11/19/21 Procedure(s): CT angio chest abdomen pelvis Accession Number(s): [id number] Report Number: [id number] WS: [email or web address] CTA CHEST ABDOMEN AND PELVIS TECHNIQUE: Noncontrast plus contrast enhanced CTA of the chest, abdomen, and pelvis with coronal and sagittal reformatted images and additional MIP Images. CLINICAL INFORMATION: rule out dissection COMPARISON: CTA September 09, 2021 DLP: 1273.[address] scans at [facility] use at least one of these dose optimization techniques: automated exposure control; mA and/or kV adjustment per patient size (includes targeted exams where dose is matched to clinical indication); or iterative reconstruction. FINDINGS: No evidence of intramural hematoma. No evidence of thoracic or abdominal aortic dissection. Abdominal aortic aneurysm with peripheral mural thrombus is unchanged since September 09, 2021. This measures approximately 3.7 x 3.8 cm AP by transverse. Aneurysmal right common iliac artery measuring 2.1 cm is unchanged. Peripheral mural thrombus in the upper abdominal aorta also unchanged. 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 SMA is patent. Hepatomegaly. Spleen size upper limits of normal. Small splenic cyst or hemangioma unchanged. Pancreas appears normal. Adrenal glands are normal. Normal right renal parenchymal enhancement. Atrophic left kidney. Stable left renal cyst. Diverticulosis. No evidence of acute diverticulitis. Small amount of free fluid in the pelvis. No evidence of high-grade small or large bowel obstruction. Stable left thyroid nodule. No mediastinal or hilar lymphadenopathy. Lungs are well aerated. No acute pulmonary infiltrates. No focal pneumonia or pleural fluid. No axillary lymphadenopathy. Postoperative changes L3-[address]/CT angio chest abdomen pelvis IMPRESSION: 1. No evidence of thoracic or abdominal aortic dissection. 2. Stable infrarenal abdominal aortic aneurysm described above with peripheral mural thrombus. 3. Atrophic left kidney. 4. Both lungs are well aerated. No acute pulmonary infiltrates. 5. Stable hepatomegaly. 6. Stable right common iliac artery aneurysm 7. No significant changes compared to previous. Dictated By:Rory Leo MDSigned By:Rory Leo MDSigned Date/Time:11/19/21 1258DD/ 1247 Coding Level of Care Code ED Green Chain Operator for Loulou Borrero
[2021-11-19] MEDS: iodixanol 320 mg/mL 100mL Btl IV (12:35)
--- NOTE | 2021-11-19 13:39 | ECG_ITS ---
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
[2021-11-19 13:51] LABS: Basophils % 0.8 %; Eosinophils # 0.1 10^3/uL (0.0-0.8); Eosinophils % 1.4 %; Hematocrit 37.4 % (37.0-47.0); Hemoglobin 11.7 g/dL (11.5-15.3); Lymphocytes # 0.9 10^3/uL (0.8-4.8); Mean Corpuscular HGB Conc 31.3 g/dL (30.0-36.0); Mean Corpuscular Hemoglobin 25.8 pg (28.0-34.0); Mean Corpuscular Volume 82.6 fl (81-99); Monocytes # 0.5 10^3/uL (0.2-0.9); Monocytes % 9.2 %; Neutrophils # 3.44 10^3/uL (1.8-7.7); Neutrophils % 70.4 %; Nucleated Red Blood Cells % 0 %; Platelet Count 213 10^3/cmm (130-400); Red Blood Count 4.53 10^6/uL (4.1-5.3); Red Cell Distribution Width 15.1 % (12.1-15.1); White Blood Count 4.9 10^3/uL (4.0-10.0)
[2021-11-19 14:14] LABS: Anion Gap 17.2 (5-19); Blood Urea Nitrogen 19 mg/dL (8-23); Calcium 8.9 mg/dL (8.5-10.5); Carbon Dioxide 24 mmol/L (22-29); Chloride 106 mmol/L (98-107); Glucose 94 mg/dL (65-115); Osmolality Calculated 298 mOsm/kg (285-295); Potassium 4.2 mmol/L (3.5-5.1); Sodium 143 mmol/L (136-145); Troponin(5th) Baseline 11 ng/L (0-10)
--- NOTE | 2021-11-19 14:36 | PC.PHAR ---
pt and pts states the pt takes care of her own meds-pt verified medications-pt states she is unsure if she takes the amlodipine 10mg daily and the hydralazine 75mg tid filled on 08/31/21 30d/s with one refill-
[2021-11-19 16:09] LABS: Troponin 5 2HR 10.78 ng/L (0-10)
[2021-11-19 16:14] LABS: Troponin 5 2HR Delta -0.22 ABS# (0-10)
[2021-11-19 16:37] VITALS: PULSE 69; RESP 15; O2SAT 94
--- NOTE | 2021-11-20 10:50 | PC.SOCIAL ---
Spoke with Leila regarding referral to Cardiology and appt scheduled for 12/03/2020 arrival time of 1:45pm with Louisa Davila. Notified patient of date and time and she did write down information and repeated back date and time. No further questions and she indicates she has seen Louisa before as well.
--- NOTE | 2021-12-18 08:14 | DCPLANNER ---
Patient had a follow up appointment scheduled for 12.03.21 at [facility] - patient did not attend appointment.
== END 2021-11-19 16:39 | disposition home or self-care (01) ==
PROVIDERS: Emergency Provider Emergency Medicine; PCP Family Medicine
DX: R07.89 Other chest pain (principal); Z86.79 Personal history of other diseases of the circulatory system; Z79.82 Long term (current) use of aspirin
CPT/HCPCS: 71045; 71275; 74174; 80048; 84484; 85025; 93005; 99282; Q9967

== ENCOUNTER 2022-03-07 05:55 | Inpatient (IN) | payer MEDICARE, OTHER, SELFPAY ==
[2022-03-07] VITALS (47 sets, daily range): BP systolic 138–295; BP diastolic 55–130; PULSE 0–100; RESP 16–34; TEMP 36.6–37.1; O2SAT 88–98; BMI 21.7; BMI 20.9
[2022-03-07] MEDS: nitroglycerin 1 gm/inch oint Pkt 1 INCH TOPICAL ×2 (06:11→17:03)
[2022-03-07] MEDS: hyDRALAzine 20 mg/mL INJ 1 mL IVP (06:11)
[2022-03-07] MEDS: labetalol 5 mg/mL SDV 20mL 10 MG IVP (06:12)
--- NOTE | 2022-03-07 06:13 | ECG_ITS ---
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 Measurements Intervals [place] Rate: 75 P: 85 [place]: 158 QRS: 67 QRSD: 84 T: 81 QT: 348 QTc: 390 Interpretive Statements SINUS RHYTHM NONSPECIFIC T-WAVE ABNORMALITY Compared to ECG 11/19/2021 15:59:33 T-wave abnormality now present Electronically Signed On 03-07-2022 16:11:35 CDT by Juan Francisco Brown M.D. [id number]
--- NOTE | 2022-03-07 06:14 | CTR_ITS ---
PROCEDURE INFORMATION: Exam: CTA Chest With Contrast Exam date and time: 03/07/2022 6:38 AM Age: 71 years old Clinical indication: Other: Vomiting; Abdominal pain; Generalized; Prior surgery; Surgery type: Stent, back; Additional info: Abd pain TECHNIQUE: Imaging protocol: Computed tomographic angiography of the chest with contrast. 3D rendering (Not supervised by radiologist): MIP and/or 3D reconstructed images were created and reviewed. COMPARISON: CT angio chest abdomen pelvis 11/19/2021 12:26 PM FINDINGS: Pulmonary arteries: Normal. No pulmonary emboli. Aorta: Heavy burden of atherosclerotic plaque involving the aortic arch. No evidence of dissection. There is mild ectasia of the descending thoracic aorta measuring 3.2 cm just below the level of the april. The descending thoracic aorta measures up to 3.9 cm just above the diaphragmatic hiatus, similar to prior. Thyroid: Similar 2.6 cm hypodense thyroid nodule centered in the left lobe and isthmus. Lungs: Mild interstitial pulmonary edema. No focal airspace consolidation. Pleural spaces: Unremarkable. No pneumothorax. No pleural effusion. Heart: Mild cardiomegaly. Mild coronary artery calcification. Lymph nodes: Unremarkable. No enlarged lymph nodes. Bones/joints: Partially imaged ACDF hardware in the cervical spine. Soft tissues: Unremarkable. COMMENTS: Consistent with the [place]'s Incidental Findings Committee white paper (J Am Missy Radiol 2015): In patients aged 35 years and older with an incidental thyroid nodule equal to or greater than 1.[address], MRI or extrathyroidal US, further evaluation with dedicated thyroid US is recommended for patients with normal life expectancy and without comorbidities. For smaller nodules without suspicious features, no further evaluation or follow up is recommended. PROCEDURE INFORMATION: Exam: CTA Abdomen and Pelvis With Contrast Exam date and time: 03/07/2022 6:38 AM Age: 71 years old Clinical indication: Other: Vomiting; Abdominal pain; Generalized; Prior surgery; Surgery type: Stent, back; Additional info: Abd pain TECHNIQUE: Imaging protocol: Computed tomographic angiography of the abdomen and pelvis with contrast material. 3D rendering (Not supervised by radiologist): MIP and/or 3D reconstructed images were created by the technologist. Radiation optimization: All CT scans at this facility use at least one of these dose optimization techniques: automated exposure control; mA and/or kV adjustment per patient size (includes targeted exams where dose is matched to clinical indication); or iterative reconstruction. Contrast material: OMNI 350; Contrast volume: 95 ml; Contrast route: INTRAVENOUS (IV); COMPARISON: CT angio chest abdomen pelvis 11/19/2021 12:26 PM RADIATION DOSE METRICS: Total DLP (mGy-cm): 1118.08 FINDINGS: Aorta: Similar 1.2 cm thrombosed outpouching along the right aspect of the abdominal aorta just below the level of the renal arteries. Similar fusiform aneurysmal dilation of the abdominal aorta measuring up to 4.2 cm with a moderate amount of calcified and noncalcified atherosclerotic plaque. No evidence of dissection. Celiac trunk and mesenteric arteries: No occlusion or significant stenosis. Renal arteries: No occlusion or significant stenosis. Right iliac arteries: Similar aneurysmal dilation of the right common iliac artery measuring 2.4 cm. Left iliac arteries: No occlusion or significant stenosis. Liver: No mass. Gallbladder and bile ducts: Unremarkable. No calcified stones. No ductal dilation. Pancreas: Unremarkable. No mass. No ductal dilation. Spleen: Unremarkable. No splenomegaly. Adrenal glands: Unremarkable. No mass. Kidneys and ureters: Atrophic left kidney with a left renal cyst. There is a nonobstructing 4 mm right upper pole renal calculus. The right kidney appears edematous with mild fullness of the renal collecting system and perinephric stranding. The right ureter is not dilated. There appears to be some mildly hyperdense material in the right renal collecting system. Stomach and bowel: Unremarkable. No obstruction. No mucosal thickening. Appendix: No evidence of appendicitis. Intraperitoneal space: Unremarkable. No free air. No significant fluid collection. Lymph nodes: Unremarkable. No enlarged lymph nodes. Urinary bladder: Unremarkable. No mass. Reproductive: Hysterectomy. Bones/joints: Changes of PLIF at L3-L4. Osteopenia. Soft tissues: Unremarkable. CT/CT angio chest abdomen pelvis IMPRESSION: 1. Mild interstitial pulmonary edema. Otherwise, no acute findings. 2. Similar ectasia of the descending thoracic aorta as detailed above. 3. Similar 2.6 cm left thyroid nodule. Recommend further evaluation with nonemergent thyroid ultrasound if not already performed. IMPRESSION: 1. The right kidney appears mildly edematous with surrounding perinephric stranding and mild fullness of the right renal collecting system. No stones are seen along the course of the right ureter, though there may be some ill-defined hyperdense material in the right renal collecting system. Correlate with any history of hematuria and consider further evaluation with CT urogram as clinically warranted. 2. Similar aneurysmal dilation of the abdominal aorta and right common iliac artery.
--- NOTE | 2022-03-07 06:15 | XRR_ITS ---
PROCEDURE INFORMATION: Exam: XR Chest Exam date and time: 03/07/2022 6:25 AM Age: 71 years old Clinical indication: Other: PT unable to give history; Additional info: Dyspnea/cough TECHNIQUE: Imaging protocol: XR of the chest. Views: 1 view. COMPARISON: CR XR chest 1V portable [id number] 11/19/2021 11:52 AM FINDINGS: Lungs: No focal airspace disease. Pleural spaces: Unremarkable. No pleural effusion. No pneumothorax. Heart/Mediastinum: Cardiomediastinal silhouette is within normal limits. Bones/joints: ACDF hardware in the cervical spine. XR/XR chest 1V portable [id number] IMPRESSION: No acute cardiopulmonary abnormality.
[2022-03-07] MEDS: LORazepam 2 mg/mL INJ 1 mL 1 MG IVP (06:17)
[2022-03-07] MEDS: carvedilol 25 mg Tablet 37.5 MG PO (06:20)
--- NOTE | 2022-03-07 06:21 | W.ED.ABDPA2 ---
HPI - Abdominal Pain General: Chief Complaint: Abdominal Pain Stated Complaint: ABD PAIN Time Seen by Provider: 03/07/22 06:11 Source: patient Mode of arrival: EMS Limitations: no limitations History of Present Illness: 69-year-old female presents emergency room with markedly elevated blood pressure and complaints of abdominal pain patient reports a tearing pain radiating into her back. She states she has had this before they told her which has which she does not recall. She does have a history of hypertension. Has not recently had any change in medication she denies having missed or run out of any of her medications. She does not have any actual chest pain all of her pain is abdominal. Patient denies headache or shortness of breath. She denies hematochezia melena hematemesis coffee-ground emesis dysuria urgency or frequency MD elicited complaint: abdominal pain Onset (ago): hour(s) Pain Consistency: constant Location: Diffuse Severity: severe Quality: cramping Radiation: none Migration to: no migration Exacerbating factors: nothing Relieving factors: nothing Associated Symptoms: Reports GI cramping and nausea; Denies anorexia, belching, bloating, change in bowel habits, change in stool character, chills, coffee ground emesis, constipation, diarrhea, dyspepsia, dysuria, excessive flatus, fever(s), heartburn, hematochezia, hematuria, hematemesis, fecal incontinence, loose stools, melena, poor appetite, syncope and vomiting Review of Systems Const: Denies: fever(s) or chills ENMT: Denies: throat pain, ear or mastoid pain, nasal discharge or nasal congestion Card: Denies: syncope Resp: Denies: dyspnea, productive cough or non-productive cough GI: Reports: nausea and GI cramping; Denies: vomiting, hematemesis, coffee ground emesis, heartburn, diarrhea, constipation, bloating, belching, excessive flatus, fecal incontinence, change in bowel habits, change in stool character, hematochezia or melena : Denies: dysuria or hematuria Skin/Breast: Denies: rash or pruritus FOR[facility]LY [facility] ED PFSH: Medical History Abdominal aortic aneurysm (AAA) 3.0 cm to 5.0 cm in diameter in female 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 Hazel, 2014 S/P cataract extraction and insertion of intraocular lens bilateral S/P cervical spinal fusion ACDFF Dr. Dawn 12/07/2015 S/P right coronary artery (RCA) stent placement (~05/2019) Family History Other Cancer Rheumatoid arthritis Denies family history of Chronic kidney disease (CKD) Systemic lupus erythematosus (SLE) in adult Lung disease Hypertension Social History Smoking and tobacco status: former smoker Alcohol intake: current Alcohol intake frequency: holidays/special occasions only History of recent travel: No (12/10/19) Physical Exam Const: COMMON NORMALS: no acute distress GENERAL APPEARANCE: cooperative and comfortable ORIENTATION/CONSCIOUSNESS: Yes awake, Yes oriented to person, Yes oriented to place and Yes oriented to time HENMT: COMMON NORMALS: normocephalic, atraumatic and hearing grossly normal bilaterally HEAD & SCALP: normocephalic and atraumatic Eye: COMMON NORMALS: Equal, round and reactive pupils present, EOMs intact bilaterally, conjunctivae normal and no scleral icterus CONJUNCTIVA: Yes conjunctivae normal PUPIL: Yes Equal, round and reactive pupils present Neck/C-Spine: COMMON NORMALS: no JVD Resp: COMMON NORMALS: normal respiratory effort, No retractions, No use of accessory muscles and clear to auscultation bilaterally AUSCULTATION: clear to auscultation bilaterally Cardio: COMMON NORMALS: no JVD, regular rate, regular rhythm and No murmurs present (Cardio) RATE: regular rate RHYTHM: regular rhythm GI: COMMON NORMALS: Soft to palpation and No hepatosplenomegaly present AUSCULTATION: Yes normoactive bowel sounds PALPATION: Yes Soft to palpation, No Tenderness to palpation present (GI), No Guarding due to palpation present (GI) and Yes No hepatosplenomegaly present Extremity: COMMON NORMALS: normal to inspection, capillary refill normal, no clubbing, cyanosis or edema, no calf tenderness and no pedal edema Neuro: SENSORIUM/ORIENTATION: Yes oriented to person, Yes oriented to place and Yes oriented to time Skin: COMMON NORMALS: no rashes or lesions noted GENERAL SKIN EXAM: no rashes or lesions noted Course Vital Signs: Vital signs: Vital Signs Temperature 98.5 F 03/07/22 05:57 Pulse Rate 85 03/07/22 09:30 Respiratory Rate 16 03/07/22 08:08 Blood Pressure 167/61 03/07/22 09:30 Pulse Oximetry 93 03/07/22 09:30 MDM - Abdominal Pain Medical Decision Making Initially patient arrives concerned about dissecting aneurysm because of her blood pressure and her report of severe pain radiating to her groin. CTA of the aorta shows no evidence of dissection there was some stranding around the right kidney delayed CT renal stone protocol showed retained contrast in the ureter and contrast into the parenchyma of the kidney. It looks like she has a forniceal leak. Discussed Dr. Limon there is some subtle EKG changes EKG changes on the second EKG QRS is much more upright in V3 T waves at V3/4/ 5 are inverted. First troponins are negative. Patient does have nitro topical. She is not complaining of any chest pain on presentation at this time she is sedate from the Ativan and fentanyl. Hesitant to anticoagulate because the amount of blood in her urine. Continue to follow troponins. Medical Records I reviewed the patient's medical records. Lab Data I reviewed the patient's lab results. : 03/07/22 06:01 03/07/22 06:01 Labs/Radiology: Radiology Impressions Chest/Abdomen/Pelvis CTA 03/07/22 06:14 IMPRESSION: 1. Mild interstitial pulmonary edema. Otherwise, no acute findings. 2. Similar ectasia of the descending thoracic aorta as detailed above. 3. Similar 2.6 cm left thyroid nodule. Recommend further evaluation with nonemergent thyroid ultrasound if not already performed. IMPRESSION: 1. The right kidney appears mildly edematous with surrounding perinephric stranding and mild fullness of the right renal collecting system. No stones are seen along the course of the right ureter, though there may be some ill-defined hyperdense material in the right renal collecting system. Correlate with any history of hematuria and consider further evaluation with CT urogram as clinically warranted. 2. Similar aneurysmal dilation of the abdominal aorta and right common iliac artery. Chest X-Ray 03/07/22 06:15 IMPRESSION: No acute cardiopulmonary abnormality. Abdomen/Pelvis CT 03/07/22 08:13 IMPRESSION: 1. Obstructing filling defect in the upper pole calyces and collecting system RIGHT kidney extending into the renal pelvis and proximal ureter. Duplicated RIGHT renal collecting system. Delayed emptying with persistent upper pole nephrogram. 2. Associated urine leak with fluid and contrast about the RIGHT kidney and retroperitoneum extending into the pelvis. No drainable urinoma. 3. Location of urine leak is difficult to localize but urine and contrast mainly centered along the upper pole renal pelvis near the UPJ. 4. No other significant changes from earlier today. 5. Stable infrarenal abdominal aortic aneurysm. 6. Ferguson catheter. Notified Pardip Brown DO at 03/07/2022 9:30 AM. Laboratory Results WBC 10.6 10^3/uL (4.0-10.0) H 03/07/22 06:01 RBC 5.10 10^6/uL (4.1-5.3) 03/07/22 06:01 Hgb 13.2 g/dL (11.5-15.3) 03/07/22 06:01 Hct 41.3 % (37.0-47.0) 03/07/22 06:01 MCV 81.0 fl (81-99) 03/07/22 06:01 MCH 25.9 pg (28.0-34.0) L 03/07/22 06:01 MCHC 32.0 g/dL (30.0-36.0) 03/07/22 06:01 RDW 15.0 % (12.1-15.1) 03/07/22 06:01 Plt Count 257 10^3/cmm (130-400) 03/07/22 06:01 MPV 11.4 fL (7.4-10.4) H 03/07/22 06:01 Neut % (Auto) 76.7 % 03/07/22 06:01 Lymph % (Auto) 12.1 % 03/07/22 06:01 Stearns % (Auto) 9.0 % 03/07/22 06:01 Eos % (Auto) 1.2 % 03/07/22 06:01 Baso % (Auto) 0.7 % 03/07/22 06:01 Neut # (Auto) 8.11 10^3/uL (1.8-7.7) H 03/07/22 06:01 Lymph # (Auto) 1.3 10^3/uL (0.8-4.8) 03/07/22 06:01 Stearns # (Auto) 1.0 10^3/uL (0.2-0.9) H 03/07/22 06:01 Eos # (Auto) 0.1 10^3/uL (0.0-0.8) 03/07/22 06:01 Baso # (Auto) 0.1 10^3/uL (0.0-0.1) 03/07/22 06:01 Nucleated RBC % (auto) 0 % 03/07/22 06:01 Nucleated RBCs # 0.0 /100WBC 03/07/22 06:01 Sodium 140 mmol/L (136-145) 03/07/22 06:01 Potassium 2.9 mmol/L (3.5-5.1) L 03/07/22 06:01 Chloride 101 mmol/L (98-107) 03/07/22 06:01 Carbon Dioxide 25 mmol/L (22-29) 03/07/22 06:01 Anion Gap 16.9 (5-19) 03/07/22 06:01 BUN 14 mg/dL (8-23) 03/07/22 06:01 Creatinine 1.3 mg/dL (0.5-0.9) H 03/07/22 06:01 GFR Calculation Not Reportable 03/07/22 06:01 Glucose 151 mg/dL (65-115) H 03/07/22 06:01 Calculated Osmolality 293 mOsm/kg (285-295) 03/07/22 06:01 Calcium 9.9 mg/dL (8.5-10.5) 03/07/22 06:01 Total Bilirubin 0.8 mg/dL (0.15-1.2) 03/07/22 06:01 AST 21 U/L (0-32) 03/07/22 06:01 ALT 13 U/L (0-33) 03/07/22 06:01 Alkaline Phosphatase 167 IU/L (35-105) H 03/07/22 06:01 Troponin T Baseline 27 ng/L (0-10) H 03/07/22 06:01 Troponin T 120 Minute 22.80 ng/L (0-10) H 03/07/22 08:35 Delta Troponin T -4.20 ABS# (0-10) L 03/07/22 08:35 NT-Pro-B Natriuret Pep 3086 pg/mL (0-125) H 03/07/22 06:01 Total Protein 6.2 g/dL (6.6-8.7) L 03/07/22 06:01 Albumin 4.1 g/dL (3.5-5.2) 03/07/22 06:01 Globulin 2.1 g/dL (1.3-4.6) 03/07/22 06:01 Urine Color Red (Yellow) 03/07/22 06:50 Urine Appearance Bloody (CLEAR) A 03/07/22 06:50 Urine pH 9 (5-7) H 03/07/22 06:50 Ur Specific Gilliam 1.015 (1.005-1.030) 03/07/22 06:50 Urine Protein 3+ (Negative) H 03/07/22 06:50 Urine Glucose (UA) Norm (Normal) 03/07/22 06:50 Urine Ketones Negative (Negative) 03/07/22 06:50 Urine Blood 3+ (Negative) H 03/07/22 06:50 Urine Nitrate Negative (Negative) 03/07/22 06:50 Urine Bilirubin Neg (Negative) 03/07/22 06:50 Prot Sulfosalicylic Acd Positive (Negative) 03/07/22 06:50 Urine Urobilinogen Norm mg/dL (Negative) 03/07/22 06:50 Ur Leukocyte Esterase 1+ (Negative) H 03/07/22 06:50 Urine RBC Too numerous to cnt /hpf (0-2) H 03/07/22 06:50 Urine WBC 10-15 /hpf (0-5) H 03/07/22 06:50 Ur Squamous Epith Cells 0-4 /hpf (0-5) H 03/07/22 06:50 Amorphous Sediment Not Reportable 03/07/22 06:50 Urine Bacteria 1+ /hpf (NONE) H 03/07/22 06:50 Urine Mucus 1+ /hpf 03/07/22 06:50 Critical Care Time Critical Care Time: Critical Care Time: Yes Total Critical Care Time: 45 Attestation: The high probability of a clinically significant, sudden or life threatening deterioration of the patient's cardiovascular renal system(s) required my full and direct attention, intervention and personal management. The critical care time is as shown. This time is in addition to time spent performing any reported procedures but includes the following: [x] Data and vital sign review and interpretation [x] Patient assessment, examination and intervention [x] Documentation [x] Medication orders and management Discharge Plan Discharge Condition: Stable Prescriptions: No Action atorvastatin 40 mg tablet 40 mg PO DAILY Qty: 30 6RF Aspirin Low Dose 81 mg tablet,delayed release (DR/EC) 81 mg PO DAILY Qty: 30 6RF carvedilol 25 mg tablet 37.5 mg PO BID Qty: 90 6RF clopidogrel 75 mg tablet 75 mg PO DAILY Qty: 30 6RF isosorbide mononitrate 30 mg tablet extended release 24 hr 15 mg PO DAILY Qty: 15 6RF Vitamin D3 25 mcg (1,000 unit) capsule 25 mcg PO DAILY 0RF hydralazine 25 mg tablet 75 mg PO TID 0RF Rx Instructions: rx last filled 08/31/21 30d/s has one refill-pt unsure if she is taking amlodipine 10 mg tablet 10 mg PO DAILY 0RF Rx Instructions: rx last filled 08/31/21 30d/s has one refill-pt unsure if she is taking nitroglycerin 0.4 mg tablet, sublingual 0.4 mg sublingual Q5M PRN (Reason: Chest Pain) 0RF Rx Instructions: max 3 doses Referrals: Silvia Peng MD [Primary Care Provider] - Coding Level of Care Code ED Material Worker for Chg Fwd Exam Comprehensive
[2022-03-07 06:28] LABS: Basophils # 0.1 10^3/uL (0.0-0.1); Basophils % 0.7 %; Eosinophils # 0.1 10^3/uL (0.0-0.8); Eosinophils % 1.2 %; Hematocrit 41.3 % (37.0-47.0); Hemoglobin 13.2 g/dL (11.5-15.3); Lymphocytes # 1.3 10^3/uL (0.8-4.8); Lymphocytes % 12.1 %; Mean Corpuscular Hemoglobin 25.9 pg (28.0-34.0); Mean Platelet Volume 11.4 fL (7.4-10.4); Neutrophils # 8.11 10^3/uL (1.8-7.7); Neutrophils % 76.7 %; Nucleated Red Blood Cells % 0 %; Platelet Count 257 10^3/cmm (130-400); White Blood Count 10.6 10^3/uL (4.0-10.0)
[2022-03-07] MEDS: amlodipine 10 mg Tablet PO (06:29)
[2022-03-07 06:40] LABS: Troponin(5th) Baseline 27 ng/L (0-10)
[2022-03-07] MEDS: iohexol 350 mg/mL 100 mL Btl IV (06:40)
[2022-03-07 06:59] LABS: Alanine Aminotransferase 13 U/L (0-33); Albumin Level 4.1 g/dL (3.5-5.2); Alkaline Phosphatase 167 IU/L (35-105); Anion Gap 16.9 (5-19); Aspartate Amino Transferase 21 U/L (0-32); Blood Urea Nitrogen 14 mg/dL (8-23); Calcium 9.9 mg/dL (8.5-10.5); Carbon Dioxide 25 mmol/L (22-29); Chloride 101 mmol/L (98-107); Globulin 2.1 g/dL (1.3-4.6); Glucose 151 mg/dL (65-115); NT Pro B Type Natriuretic Pept 3086 pg/mL (0-125); Osmolality Calculated 293 mOsm/kg (285-295); Sodium 140 mmol/L (136-145); Total Bilirubin 0.8 mg/dL (0.15-1.2); Total Protein 6.2 g/dL (6.6-8.7)
[2022-03-07] MEDS: promethazine 25 mg/mL SDV 1 mL IM (07:00)
[2022-03-07 07:21] LABS: Creatinine Clr Calc Pharmacy 35.7167; Potassium 2.9 mmol/L (3.5-5.1)
[2022-03-07] MEDS: nicardipine 20 MG/200 ML PREMIX 5 MG IV (07:48)
[2022-03-07 07:53] LABS: Bilirubin Urine Neg (Negative); Blood Urine 3+ (Negative); Glucose Urine UA Norm (Normal); Ketones Urine Negative (Negative); Nitrate Urine Negative (Negative); Protein Urine 3+ (Negative); Specific Gravity, Urine 1.015 (1.005-1.030); Sulfosalicylic Acid Urine Positive (Negative); Urine Appearance Bloody (CLEAR); Urine Color Red (Yellow); Urobilinogen Urine Norm (Negative); pH Urine 9 (5-7)
[2022-03-07 07:54] LABS: Add Urine Microscopic? YES; Leukocyte Esterase Urine 1+ (Negative); RBC Urine TOO NUMEROUS TO CNT /hpf (0-2); Squamous Epithelial Cell Urine 0-4 /hpf (0-5)
[2022-03-07 07:55] LABS: Add Urine Culture? Yes; Bacteria Urine 1+ /hpf; Mucus Urine 1+ /hpf
--- NOTE | 2022-03-07 08:13 | CT_ITS ---
WS: [id number] CT ABDOMEN PELVIS TECHNIQUE: Noncontrast CT of the abdomen and pelvis with coronal and sagittal reformatted images. CLINICAL INFORMATION: flank painhematuria COMPARISON: CTA March 07, 2022 DLP: 1305.[address] scans at [facility] use at least one of these dose optimization techniques: automated e xposure control; mA and/or kV adjustment per patient size (includes targeted exams where dose is matc hed to clinical indication); or iterative reconstruction. FINDINGS: Noncontrast study with residual contrast from earlier today. Duplicated RIGHT renal collecting system with obstruction of the upper pole collecting system. Filling defect in the upper pole renal calyces extending into the renal pelvis corresponds to increased attenuation seen on the recent CT earlier t tiara. This extends into the proximal ureter. Associated obstruction of the upper pole collecting syst em with persistent nephrogram. Associated perirenal urine leak with contrast extending about the RIGH T kidney and RIGHT retroperitoneum. No drainable urinoma. Contrast extends into the pelvis. Urine henry k is difficult to localize but likely from the upper pole renal pelvis near the UPJ Mid and distal RIGHT ureter decompressed. No distal obstructing calculi. Ferguson catheter in place. Atr ophic LEFT kidney with LEFT renal cyst. Unchanged abdominal aortic aneurysm. Bibasilar atelectasis. No other significant changes from earlier today. CT/CT kidney stone [id number] IMPRESSION: 1. Obstructing filling defect in the upper pole calyces and collecting system RIGHT kidney extending into the renal pelvis and proximal ureter. Duplicated RI GHT renal collecting system. Delayed emptying with persistent upper pole nephro gram. 2. Associated urine leak with fluid and contrast about the RIGHT kidney and re troperitoneum extending into the pelvis. No drainable urinoma. 3. Location of urine leak is difficult to localize but urine and contrast roseanne nly centered along the upper pole renal pelvis near the UPJ. 4. No other significant changes from earlier today. 5. Stable infrarenal abdominal aortic aneurysm. 6. Ferguson catheter. Notified Pradip Brown DO at 03/07/2022 9:30 AM.
--- NOTE | 2022-03-07 08:13 | ECG_ITS ---
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 Measurements Intervals [place] Rate: 89 P: 79 SC: 153 QRS: 26 QRSD: 88 T: 94 QT: 383 QTc: 468 Interpretive Statements SINUS RHYTHM ST DEVIATION AND MODERATE T-WAVE ABNORMALITY, CONSIDER ANTEROLATERAL ISCHEMIA [-0.1+ mV T-WAVE IN V3-V6] Compared to ECG 03/07/2022 06:02:51 Possible ischemia now present T-wave abnormality still present Electronically Signed On 03-07-2022 16:16:11 CDT by Juan Francisco Brown M.D. [id number]
[2022-03-07] MEDS: potassium chloride oral liq 20 mEq/15 mL UDC 40 MEQ PO (08:18)
[2022-03-07] MEDS: potassium chloride premix 100 ML 25 MEQ IV (08:29)
[2022-03-07] MEDS: cefTRIAXone 2,000 MG in sodium chloride 0.9% (plus) 50 ML 100 MG IV (08:30)
[2022-03-07] MEDS: fentaNYL 50 mcg/mL INJ 2mL 25 MCG IVP ×3 (09:32→23:57)
--- NOTE | 2022-03-07 09:40 | PM.HP ---
Providers/Chief Complaint Admitting Physician: Milan Limon MD Primary Care Provider: Silvia Peng MD Chief Complaint: ABD PAIN History of Present Illness Rosie Martinez is a 71 year old female who presented to the emergency department with complaints of abdominal pain, radiating into her back. From discussion with the emergency department physician he reports she was alert, oriented and able to give a coherent history on arrival. Since that time she has received some Ativan for agitation, and can only indicate she is in some abdominal pain, and frequently moves in bed. Occasionally I can get a yes or no answer out of her. I cannot confirm whether she has had any fever, dysuria, blood in her urine at home, vomiting, etc. In the emergency department she was able to tell the ER doc she had not had any vomiting, and had been compliant with medications. He also documents she had not had any chest discomfort. Patient is able to tell me yes when I asked her if she still has abdominal pain. In the emergency department, she received many of the medication she takes on a chronic basis for her hypertension. She also received some Ativan for agitation. Rocephin has been given for possible UTI. Fentanyl has been ordered, but not yet given. Urology has been called and consulted secondary to right renal/ureter obstruction. IV potassium is being given. IV nicardipine is been given for blood pressure. Review of Systems General: Reports: ROS unobtainable due to mental status (Unable to participate in review of systems secondary to Ativan) Medications/Allergies Home Medications Medication Instructions Recorded Confirmed Last Taken Type No Known Home Medications 03/07/22 03/07/22 Unknown History Allergies Allergy/AdvReac Type Severity Reaction Status Date / Time codeine Allergy Unknown Unknown Verified 03/07/22 10:15 morphine Allergy Unknown Unknown Verified 03/07/22 10:15 Opioids - Morphine Analogues Allergy Unknown Unknown Verified 03/07/22 10:15 Opioids-Meperidine and Allergy Unknown Unknown Verified 03/07/22 10:15 Related Opioids-Methadone and Related Allergy Unknown Unknown Verified 03/07/22 10:15 hydrocodone Allergy VOMITING Verified 03/07/22 10:15 AND PASSING OUT oxycodone Allergy VOMITING,PASSES Verified 03/07/22 10:15 OUT PFSH Acute PFSH: Medical History Abdominal aortic aneurysm (AAA) 3.0 cm to 5.0 cm in diameter in female 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 Hazel, 2013 S/P cataract extraction and insertion of intraocular lens bilateral S/P cervical spinal fusion ACDFF Dr. Dawn 12/07/2015 S/P right coronary artery (RCA) stent placement (~05/2019) Family History Other Cancer Rheumatoid arthritis Denies family history of Chronic kidney disease (CKD) Systemic lupus erythematosus (SLE) in adult Lung disease Hypertension Social History Smoking and tobacco status: former smoker Alcohol intake: current Alcohol intake frequency: holidays/special occasions only History of recent travel: No (12/10/19) Vitals/I&O/Wt Last Vital Signs Temp 98.5 F 03/07/22 05:57 Pulse 85 03/07/22 09:30 Resp 16 03/07/22 08:08 BP 167/61 03/07/22 09:30 Pulse Ox 93 03/07/22 09:30 03/06/22 03/07/22 03/07/22 22:59 06:59 14:59 Intake Total 50.667 / 50.667 Balance 50.667 / 50.667 Weight last 48 hrs Weight 59.097 kg Physical Exam Narrative: General exam is a white female, moving frequently on the bed, who briefly can answer yes to some questions. Neurologic: No obvious focal deficits. She appears confused. Emergency physician relates this is related to Ativan she received and she was alert and oriented on arrival. Skin is without rash HEENT: Atraumatic normocephalic. Pupils equally round. Oropharynx clear. Neck is supple no lymphadenopathy or thyromegaly Cardiovascular regular rate and rhythm, no murmur. No S3 or S4 Lungs clear without wheezing or crackles Abdomen is soft. Tenderness is present, right greater than left. Bowel sounds are noted. No obvious organomegaly. exam demonstrates Ferguson catheter with bloody urine Extremities no cyanosis clubbing or edema, cap refill brisk, cap refill brisk Urinary Catheter Management: Ferguson: Cath Placed During This Visit: yes Urinary Catheter Date of Insertion: 03/07/22 Urinary Catheter Time of Insertion: 07:14 Data : 03/07/22 06:01 03/07/22 06:01 Other Labs: CT renal protocol demonstrates obstructive filling defect upper pole calyces and right kidney collecting system extending into renal pelvis and proximal ureter. Associated urine leak with fluid and contrast noted around the right kidney and retroperitoneum Chest x-ray showed no infiltrate CTA chest abdomen pelvis demonstrated mild interstitial edema, ectasia of thoracic aorta, 2.6 cm thyroid nodule, right kidney edema and perinephric stranding and fullness in the right renal collecting system. No change in aneurysmal dilation of abdominal aorta and right common iliac artery. Calcium is normal LFTs normal with exception of alk phos of 167 Troponin baseline 27 and repeated 120 minutes 22 BNP 3086 Albumin 4.1 Urinalysis too numerous to count reds, 10-15 whites, 1+ bacteria EKG demonstrates sinus rhythm, normal axis, flipped T waves V3 through 6 and 1. This is different from the EKG done just 2 hours earlier. This is being repeated currently. Micro: Microbiology 03/07/22 08:16 Blood Culture - Preliminary Blood SPECIMEN COLLECTED A&P Assessment and plan (1) Ureteral obstruction, right: Patient presented with abdominal pain, and has significant ureteral obstruction, with urinary leak from the right kidney. Pain control as needed. She has had significant vomiting with narcotics in the past. Allergy to morphine, codeine, hydrocodone, oxycodone is noted. Fentanyl is being tried in the emergency department. We will continue as needed if there are no concerning side effects. Cannot rule out concomitant UTI so Rocephin will be continued, urine culture obtained. Blood cultures have also been obtained. Urology consultation Status: Acute (2) Encephalopathy: From my discussion with the emergency department physician this occurred after Ativan was given. Will monitor for resolution. Consistent with acute metabolic encephalopathy. Check TSH. Note patient also has history of thyroid nodule. This will need to be followed up as an outpatient. Status: Acute (3) Abnormal EKG: Second EKG is different from the first. Although troponin does not show significant delta, with the patient's underlying encephalopathy it is difficult to know if she is having any chest discomfort. Will repeat EKG currently, continue to follow troponin series. Consider nitroglycerin drip if abnormalities noted even after close attention to lead placement. If significant abnormality will also consider cardiology consultation. Plan on continuing her beta-lynne, aspirin, Plavix, statin. Nitroglycerin ointment was placed in the emergency department. Troponin elevation is consistent with type II elevation currently. Abnormal EKG is concerning and to be further delineated. Full anticoagulation contraindicated currently secondary to significant hematuria. Check Echo Status: Acute (4) Hypokalemia: Significant hypokalemia on arrival to emergency department is being supplemented. Close follow-up of potassium. Check magnesium level. Status: Acute (5) Hypertensive urgency: She has received morning medications of Norvasc, carvedilol. Nitroglycerin ointment has been placed. She has been put on a nicardipine drip. Hydralazine has been given IV x1. Continue hydralazine as needed Home medication regimen will be ordered Continue nicardipine currently. If EKG persistently abnormal could switch to nitroglycerin drip. Status: Acute Plan Multiple other medical problems as outlined in past medical history Full code at this time Significant hematuria, contraindication to anticoagulation currently. SCDs for DVT prophylaxis Attestations Medical Necessity Statement*: Will need greater than 2 midnight stay for treatment of ureteral obstruction, hypertensive urgency in an ICU setting secondary to need for nicardipine IV currently. Critical Care Time: The high probability of a clinically significant, sudden or life threatening deterioration of the patient's [neurologic, renal, , cardiac system(s) required my full and direct attention, intervention and personal management. The critical care time is as shown. This time is in addition to time spent performing any reported procedures but includes the following: [x] Data and vital sign review and interpretation [x] Patient assessment, examination and intervention [x] Documentation [x] Medication orders and management Critical Care Time (min): 55 Coding Level of Care Code Acute Pt Escort for [facility] [place] Diagnoses Ureteral obstruction, right N13.5 Encephalopathy G93.40 Abnormal EKG R94.31 Hypokalemia E87.6 Hypertensive urgency I16.0
--- NOTE | 2022-03-07 09:52 | ECG_ITS ---
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 Measurements Intervals [place] Rate: 91 P: 84 MA: 159 QRS: 60 QRSD: 88 T: 117 QT: 374 QTc: 461 Interpretive Statements SINUS RHYTHM ST DEVIATION AND MODERATE T-WAVE ABNORMALITY, CONSIDER LATERAL ISCHEMIA [-0.1+ mV T-WAVE IN I/aVL/V5/V6] Compared to ECG 03/07/2022 09:07:59 No significant changes Electronically Signed On 03-07-2022 16:11:42 CDT by Juan Francisco Brown M.D. [email or web address] [email or web address]/[id number] f
[2022-03-07 10:12] LABS: Magnesium 2.1 mg/dL (1.7-2.3); Thyroid Stimulating Hormone 1.15 uIU/mL (0.27-4.20)
[2022-03-07] MEDS: nicardipine 20 MG/200 ML PREMIX 50 MG IV (11:11)
[2022-03-07] MEDS: sodium chloride 0.9% 1,000 ML 100 ML IV ×2 (11:11→21:16)
--- NOTE | 2022-03-07 12:13 | ECG_ITS ---
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 Measurements Intervals [place] Rate: 89 P: 78 LA: 156 QRS: 15 QRSD: 86 T: 73 QT: 335 QTc: 409 Interpretive Statements SINUS RHYTHM POSSIBLE LEFT ATRIAL ENLARGEMENT [-0.1mV P-WAVE IN V1/V2] NONSPECIFIC T-WAVE ABNORMALITY Compared to ECG 03/07/2022 10:46:04 No significant changes Electronically Signed On 03-07-2022 16:16:26 CDT by Juan Francisco Brown M.D. [id number]
[2022-03-07] MEDS: nicardipine 20 MG/200 ML PREMIX 40 MG IV (17:04)
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
--- NOTE | 2022-03-07 18:20 | PC.NURSE ---
wong irrigated at this time up in bed remains sedated wong with bloody urine irrigated a t his time Dr Michele here aware
--- NOTE | 2022-03-07 18:38 | CTR_ITS ---
PROCEDURE INFORMATION: Exam: CT Head Without Contrast Exam date and time: 03/08/2022 5:01 AM Age: 71 years old Clinical indication: Altered mental status/memory loss; Patient HX: Lethargy. Encephalopathy. TECHNIQUE: Imaging protocol: Computed tomography of the head without contrast. Radiation optimization: All CT scans at this facility use at least one of these dose optimization techniques: automated exposure control; mA and/or kV adjustment per patient size (includes targeted exams where dose is matched to clinical indication); or iterative reconstruction. COMPARISON: CT head wo con* [id number] 11/01/2021 1:46 PM RADIATION DOSE METRICS: Total DLP (mGy-cm): 1185.98 FINDINGS: Brain: No acute intracranial hemorrhage or mass effect. There is prominent decreased attenuation in the periventricular white matter, likely from microvascular disease. No definite acute infarct by CT. MRI could be more sensitive/specific for detection, as clinically directed. Cerebral ventricles: Ventricle size is normal for age. Paranasal sinuses: Included paranasal sinuses are essentially clear. Mastoid air cells: No significant acute finding. Vasculature: Vascular calcifications in the internal carotid and vertebral basilar systems. Bones/joints: No definite acute skull fracture. Soft tissues: No significant acute finding. CT/CT head wo con* [id number] IMPRESSION: 1. No acute intracranial hemorrhage or mass effect. 2. Changes of microvascular disease. 3. No definite acute infarct by CT, see above. 4. Other findings discussed above.
[2022-03-07] MEDS: carvedilol 25 mg Tablet PO (22:15)
[2022-03-07] MEDS: nicardipine 20 MG/200 ML PREMIX 30 MG IV (23:56)
[2022-03-08] VITALS (61 sets, daily range): BP systolic 117–176; BP diastolic 51–97; PULSE 67–87; RESP 14–37; TEMP 36.7–37.2; O2SAT 75–99
[2022-03-08] MEDS: nitroglycerin 1 gm/inch oint Pkt 1 INCH TOPICAL ×3 (00:05→17:18)
[2022-03-08 04:17] LABS: Basophils % 0.3 %; Eosinophils % 0.1 %; Hematocrit 36.5 % (37.0-47.0); Hemoglobin 11.6 g/dL (11.5-15.3); Lymphocytes # 0.6 10^3/uL (0.8-4.8); Lymphocytes % 3.7 %; Mean Corpuscular HGB Conc 31.8 g/dL (30.0-36.0); Mean Corpuscular Hemoglobin 25.7 pg (28.0-34.0); Mean Corpuscular Volume 80.9 fl (81-99); Monocytes % 6.5 %; Neutrophils # 14.01 10^3/uL (1.8-7.7); Nucleated Red Blood Cells % 0 %; Platelet Count 223 10^3/cmm (130-400); Red Blood Count 4.51 10^6/uL (4.1-5.3); White Blood Count 15.7 10^3/uL (4.0-10.0)
[2022-03-08 04:33] LABS: Alanine Aminotransferase 12 U/L (0-33); Albumin Level 3.5 g/dL (3.5-5.2); Alkaline Phosphatase 143 IU/L (35-105); Blood Urea Nitrogen 25 mg/dL (8-23); Calcium 9.6 mg/dL (8.5-10.5); Carbon Dioxide 21 mmol/L (22-29); Chloride 105 mmol/L (98-107); Glucose 122 mg/dL (65-115); Magnesium 2.2 mg/dL (1.7-2.3); Osmolality Calculated 290 mOsm/kg (285-295); Sodium 137 mmol/L (136-145); Total Bilirubin 0.6 mg/dL (0.15-1.2); Total Protein 5.5 g/dL (6.6-8.7)
[2022-03-08 04:38] LABS: Aspartate Amino Transferase 25 U/L (0-32)
[2022-03-08] MEDS: fentaNYL 50 mcg/mL INJ 2mL 25 MCG IVP ×3 (04:48→20:37)
--- NOTE | 2022-03-08 06:00 | USCV_ITS ---
Transthoracic Echo Rosie Martinez Age: 71 Gender: F : 1950 Exam Date: 03/08/2022 03:02 Ordering Phys: Milan Limon MD Technologist: CKRai Exam Location: [facility] – [place] Indication: Hypertensive Urgency BP: 142 / 61 HR: 72 Rhythm: Sinus Technical Quality: Adequate MEASUREMENTS (Male / Female) Normal Values 2D ECHO LV Diastolic Diameter PLAX 4.3 cm 4.2 - 5.9 / 3.9 - 5.3 cm LV Systolic Diameter PLAX 1.8 cm IVS Diastolic Thickness 1.4 cm 0.6 - 1.0 / 0.6 - 0.9 cm IVS Systolic Thickness 2.3 cm LVPW Diastolic Thickness 1.3 cm 0.6 - 1.0 / 0.6 - 0.9 cm LVPW Systolic Thickness 2.0 cm LVOT Diameter 2.0 cm LV Ejection Fraction 2D Teich 88.0 % LA Diameter 4.2 cm Aorta at Sinotubular Diameter 2.3 cm M-MODE Aortic Annulus Diameter 2.8 cm LA Ao Ratio MM 1.6 MV E Point Septal Separation 0.5 cm FINDINGS Left Ventricle Right Ventricle Right Atrium Left Atrium Mitral Valve Aortic Valve Tricuspid Valve Pulmonic Valve Pericardium Aorta CONCLUSIONS Limited views were obtained as patient refused to complete the study. Grossly LV systolic function is normal. Regional wall motion abnormalities cannot be accuately assessed because of limited views Grossly normal mitral valve Comparison with prior echocardiograms not possible because of limited views Jamie Ordaz MD (Electronically Signed) Final Date: 08 March 2022 15:51 S
[2022-03-08] MEDS: cefTRIAXone 1,000 MG in sodium chloride 0.9% (plus) 50 ML 100 MG IV (06:17)
[2022-03-08] MEDS: sodium chloride 0.9% 1,000 ML 100 ML IV ×2 (06:18→17:14)
[2022-03-08] MEDS: nicardipine 20 MG/200 ML PREMIX 30 MG IV (06:26)
--- NOTE | 2022-03-08 07:21 | P.PN_ITS ---
Subjective Subjective: Rosie reports she is not having much pain right now. Urine output was fairly poor throughout the last 24 hours, only about 400 cc. Urine has now started to clear. Patient is much more conversant, denies any chest discomfort. CT head done last night demonstrated no acute changes. Medications: Reviewed: Yes Vitals/I&O/Wt Last Vital Signs Temp 98.7 F 03/08/22 06:00 Pulse 77 03/08/22 06:30 Resp 26 H 03/08/22 06:30 BP 143/63 03/08/22 06:30 Pulse Ox 89 L 03/08/22 06:30 03/07/22 03/08/22 03/08/22 22:59 06:59 14:59 Intake Total 1221.500 / 2718.922 1305.000 / 2811.500 Output Total 350 / 350 260 / 610 Balance 871.500 / 1240.500 961.000 / 2201.500 Weight last 48 hrs Weight 66.678 kg Weight 59.024 kg Weight 59.097 kg Physical Exam Narrative: General exam is a white female, conversant and appropriate HEENT: Atraumatic normocephalic. Pupils equally round. Oropharynx clear. Neck is supple no lymphadenopathy or thyromegaly Cardiovascular regular rate and rhythm, no murmur. No S3 or S4 Lungs clear without wheezing or crackles Abdomen is soft. Bowel sounds are noted. exam demonstrates Ferguson catheter with clear urine in the tube Extremities no cyanosis clubbing or edema, cap refill brisk, cap refill brisk Urinary Catheter Management: Ferguson: Cath Placed During This Visit: yes Reason for Continuing Indwelling Catheter: Acute Urinary Retention or Obstruction Urinary Catheter Date of Insertion: 03/07/22 Urinary Catheter Time of Insertion: 07:14 Data : 03/08/22 04:02 03/08/22 04:02 Micro: Microbiology 03/07/22 13:47 Blood Culture - Preliminary Blood SPECIMEN COLLECTED 03/07/22 08:16 Blood Culture - Preliminary Blood SPECIMEN COLLECTED A&P Assessment and plan (1) Ureteral obstruction, right: Patient presented with abdominal pain, and has significant ureteral obstruction, with urinary leak from the right kidney. Pain control as needed. She has had significant vomiting with narcotics in the past. Allergy to morphine, codeine, hydrocodone, oxycodone is noted. She tolerated fentanyl yesterday. Currently she denies any pain. Appreciate urology evaluation. They are concerned with acute bleed. C onsideration for cystoscopy today. As infection not completely ruled out patient has been started on Rocephin Note that CTA did not show any renal vein thrombosis, or renal artery thrombosis. I will review the scan again with radiology today. She has developed acute kidney injury. Continue hydration currently. Avoid renal toxic medication. Check CK. Status: Acute (2) Encephalopathy: From my discussion with the emergency department physician this occurred after Ativan was given. This is now resolved consistent with acute metabolic encephalopathy. CT head negative TSH checked and normal. Note patient also has history of thyroid nodule. This will need to be followed up as an outpatient. Status: Acute (3) Abnormal EKG: Patient denies any chest discomfort. Although troponin is elevated no significant delta. Plan on continuing her beta-lynne,, statin, nitroglycerin ointment Troponin elevation consistent with type II elevation Full anticoagulation contraindicated currently secondary to significant hematuria. Await echocardiogram Status: Acute (4) Hypokalemia: Significant hypokalemia on arrival to emergency department is being supplemented. This is resolved. Magnesium level was checked and normal. Status: Acute (5) Hypertensive urgency: She has received morning medications of Norvasc, carvedilol. Nitroglycerin ointment has been placed. She has been put on a nicardipine drip. Hydralazine has been given IV x1. Continue hydralazine as needed Hopefully can wean off nicardipine today. Status: Acute Plan Multiple other medical problems as outlined in past medical history Full code at this time Significant hematuria, contraindication to anticoagulation currently. SCDs for DVT prophylaxis Attestations Medical Necessity Statement*: Needs continued hospitalization, secondary to acute kidney injury associated with severe and acute onset hematuria, the etiology to be determined. Coding Level of Care Code Acute Senior Agricultural Assistant for g Fwd Diagnoses Ureteral obstruction, right N13.5 Encephalopathy G93.40 Abnormal EKG R94.31 Hypokalemia E87.6 Hypertensive urgency I16.0
--- NOTE | 2022-03-08 07:33 | XR_ITS ---
WS: [id number] XR KUB [id number] REASON FOR EXAM: Right ureteral obstruction. f/u on CT FINDINGS: From the patient's CT scan of the abdomen and pelvis of the previous day, there is a persistent nephrogram which demonstrates hypodensity in the lower half of the kidney as wa s seen on the CT scan of the previous day. There is also contrast retained within the collecting syst em outlining the previously described intraluminal filling defects in the renal pelvis and calyces. T here is also extravasated contrast persisting in the renal hilus. There is vicarious excretion of contrast into the gallbladder. No free air or retroperitoneal air. Normal bowel gas pattern. XR/XR KUB [id number] IMPRESSION: Findings a persistent ureteral obstruction. Appearance of nephrogram may be due to lower pole infarct or unobstructed lower pole collecting system.
[2022-03-08 07:43] LABS: Creatine Phosphokinase 127 U/L (26-192)
[2022-03-08] MEDS: pantoprazole 40 mg SDV IVP (08:02)
[2022-03-08] MEDS: amlodipine 5 mg Tablet PO (08:02)
[2022-03-08] MEDS: carvedilol 25 mg Tablet PO ×2 (08:02→20:37)
--- NOTE | 2022-03-08 10:42 | PC.CHAP ---
Pastoral Care Encounter/Spiritual Assessment Type of Contact [] Declined field instructor visit [] Patient/Family/Request visit [] Outpatient visit [] Follow-up visit [] Physician referral [] Code/Alert [x] Routine visit [] Staff referral [] Actively dying [x] Patient sleeping [] Family support [] [] Out of room [] Palliative care [] [] Receiving care in room [] Pre-surgical visit [] Trauma [] Long length of stay [x] ICU visit [] Other: Relational/Emotional Strength [] Patient feels connected with others/family/visitors/staff [] Distress [] Loneliness/isolation [] Abandonment Spirituality of Patient [] Person of Kassi [] Attends Jewish of their Kassi [] Believes in Prayer [] Reads Bible or Buddhism materials [] There are Spiritual issues to be addressed Inspector And Sorter Interventions [x] Prayer [] Active listening [] Non-anxious presence [] Spiritual/emotional support [] Crisis/trauma care [] Spiritual counseling [] Bereavement support [] Provided bereavement packet [] Provided Bible/devotional materials [] Provided toy/stuffed animal, coloring book to patient or family member [] Provided Communion [] Anointing/[place] [] Salvation [x] Completed spiritual assessment [] Other: Impact on Illness or Injury [] Angry [] Fearful [] Anxious [] Often cries [] Exhaustion [] Unable to work [] Unable to attend islam [] Unable to walk/stand [] Unable to read [] Unable to drive [] Unable to eat/drink [] Unable to sleep [] Unable to be with family [] Patient intubated [] Other: Summary Time spent with patient
--- NOTE | 2022-03-08 11:09 | P.PN_ITS ---
Subjective Subjective: Creatinine as expected has bumped up quite a bit. Urine has cleared somewhat. KUB this morning showed retained contrast in the collecting system with dilation with contrast extending distally to only the proximal ureter. This probably is contributing to her further reduction in renal function. Will plan on stent placement this afternoon. Can consider relook ureteroscopy later after her status has improved. Vitals/I&O/Wt Last Vital Signs Temp 98.0 F 03/08/22 08:00 Pulse 81 03/08/22 10:00 Resp 27 H 03/08/22 10:00 BP 142/71 03/08/22 10:00 Pulse Ox 90 03/08/22 10:00 03/07/22 03/08/22 03/08/22 22:59 06:59 14:59 Intake Total 1221.500 / 0861.368 1687.000 / 2811.500 163.833 / 163.833 Output Total 350 / 350 260 / 610 Balance 871.500 / 1240.500 961.000 / 2201.500 163.833 / 163.833 Weight last 48 hrs Weight 147 lb Weight 130 lb 2 oz Weight 130 lb 4.586 oz Physical Exam Narrative: Much more alert today. Not really conversant. Does respond to some questions Urine is clear to pink. Abdomen is soft. Some right upper quadrant tenderness right CVA tenderness No lymphadenopathy Respiratory: No audible wheezing. Good air movement Cardiovascular: Regular rate and rhythm Urinary Catheter Management: Ferguson: Cath Placed During This Visit: yes Reason for Continuing Indwelling Catheter: Acute Urinary Retention or Obstruction Urinary Catheter Date of Insertion: 03/07/22 Urinary Catheter Time of Insertion: 07:14 Data : 03/08/22 04:02 03/08/22 13:05 Micro: Microbiology 03/07/22 08:16 Blood Culture - Preliminary Blood NEGATIVE TO DATE 03/07/22 06:50 Urine Culture - Preliminary Urine,Clean Catch 03/07/22 13:47 Blood Culture - Preliminary Blood SPECIMEN COLLECTED A&P Assessment and plan (1) Ureteral obstruction, right: She is still tightly obstructed in the right kidney likely from clot. See prior note. We will plan on stent placement today with hopes of improving renal function. I reviewed the procedure with the patient's yesterday in detail. Status: Acute (2) Atrophy of left kidney: Status: Acute (3) Elevated serum creatinine: Status: Acute (4) Urinary extravasation: Status: Acute Attestations Medical Necessity Statement*: Critically ill. Worsening renal function. To surgery urgently for right ureteral stent placement. Coding Level of Care Code Acute Event Staff Member for [facility] Fwd Diagnoses Atrophy of left kidney N26.1 Elevated serum creatinine R79.89 Urinary extravasation R39.0 Ureteral obstruction, right N13.5
--- NOTE | 2022-03-08 13:10 | ANES.PREANE2 ---
Pre-Anesthetic Assessment Height/Weight: Height 1.68 m Weight 66.678 kg Temp Pulse Resp BP Pulse Ox 98.0 F 74 24 H 136/58 90 03/08/22 08:00 03/08/22 12:15 03/08/22 12:15 03/08/22 12:15 03/08/22 12:15 Preop Diagnosis: Osteoarthritis right knee Operation Date: 03/07/22 15:00 Proposed Procedures p Laparoscopy(Not Applicable) - Iván Cardenas MD s Exploratory Laparotomy(Not Applicable) - Iván Cardenas MD s Colostomy(Not Applicable) - Iván Cardenas MD s Laparoscopic Colon Resection(Not Applicable) - Iván Cardenas MD Operation Date: 03/08/22 14:30 Proposed Procedures p Cystoscopy(Not Applicable) - Star Michele MD s Ureteral Stent Placement(Right) - Star Michele MD Familial anesthetic complications: None Was Beta Leandro taken within 24 hours: N/A Was Clonidine taken within 24 hours: N/A Last intake: > 8hrs Social No alcohol and No tobacco Exam alert, oriented x 3, clear to auscultation bilaterally and regular rate & rhythm Airway Mallampati: Class II Dentition: false Pulmonary Sleep Apnea CV/HEM Coronary Artery Disease, Hypertension and Peripheral Vascular Disease Date of Service: 09/10/21 Procedure(s): NM ede perf SPECT r/s* [id number] ?IMPRESSIONS ?1. Normal myocardial perfusion imaging with no evidence of ischemia ?2. LV systolic function is normal ?Jamie Ordaz MD ? (Electronically Signed) Date of Service: 09/09/21 Procedure(s): CT angio chest abdomen pelvis Impression: 1. Calcified abdominal aortic aneurysm small increased size since prior. 7. Stable ectatic right iliac artery 8. 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 9. BLAYNE is visible and without stenosis. Date of Service: 04/09/21 Procedure(s): CV echo complete* [id number] ?CONCLUSIONS ?1-Normal left ventricular cavity size. Normal left ventricular ?systolic function. No regional wall motion abnormalities. Left ?ventricular ejection fraction is estimated at 66 %. Grade I/IV ?diastolic dysfunction (abnormal relaxation filling pattern), normal to mildly elevated filling pressures. ?2-Structurally normal aortic valve without significant sclerosis or stenosis.? There is no aortic regurgitation. ?3-Thickened mitral valve. No mitral valve stenosis. Severe mitral valve regurgitation. ?4-Moderate tricuspid valve regurgitation. ?5-There is no pericardial effusion. ?6-Right atrial pressure is around 5 mm of mercury. ?7-When compared to the prior echocardiogram dated 22 October ?2014 there appeared to be worsening of tricuspid regurgitation ?from mild to moderate and new severe mitral valve regurgitation now ?Tamera Castellon MD ? (Electronically Signed) STEVEN Anesthetic Plan ASA status: 3 Anesthesia: General Risk of > 500 ml blood loss (7ml/kg in children): No Medications/Allergies Home Medications Medication Instructions Recorded Confirmed Last Taken Type No Known Home Medications 03/07/22 03/07/22 Unknown History Allergies Allergy/AdvReac Type Severity Reaction Status Date / Time codeine Allergy Unknown Unknown Verified 03/07/22 10:15 morphine Allergy Unknown Unknown Verified 03/07/22 10:15 Opioids - Morphine Analogues Allergy Unknown Unknown Verified 03/07/22 10:15 Opioids-Meperidine and Allergy Unknown Unknown Verified 03/07/22 10:15 Related Opioids-Methadone and Related Allergy Unknown Unknown Verified 03/07/22 10:15 hydrocodone Allergy VOMITING Verified 03/07/22 10:15 AND PASSING OUT oxycodone Allergy VOMITING,PASSES Verified 03/07/22 10:15 OUT Current Medications Generic Name Dose Route Start Last Admin Trade Name Chuq PRN Reason Stop Dose Admin Amlodipine Besylate 5 mg 03/08/22 09:00 03/08/22 08:02 Amlodipine 5 Mg Tablet PO 5 mg DAILY MARI Administration Carvedilol 25 mg 03/07/22 21:00 03/08/22 08:02 Carvedilol 25 Mg Tablet PO 25 mg BID@0900,2100 MAIR Administration Fentanyl 25 mcg 03/07/22 10:42 03/08/22 08:02 Fentanyl 50 Mcg/Ml Inj 2ml IVP 25 mcg Q2H PRN Administration Severe Pain, see comments Nicardipine/Sodium Chloride 20 mg in 200 mls @ 0 mls/hr 03/07/22 06:15 03/08/22 09:25 Cardene IV 0 mg/hr .Q0M MARI 0 mls/hr Titration Protocol Per Protocol Sodium Chloride 1,000 mls @ 100 mls/hr 03/07/22 10:42 03/08/22 06:18 Sodium Chloride 0.9% IV 100 mls/hr .Q10H MARI Administration Ceftriaxone Sodium 1,000 mg/ 50 mls @ 100 mls/hr 03/08/22 07:00 03/08/22 07:24 Sodium Chloride IV Infused Q24H MARI Infusion Protocol Nitroglycerin 1 inch 03/07/22 12:00 03/08/22 12:33 Nitroglycerin 1 Gm/Inch Oint Pkt TOPICAL Not Given Q6H MARI Pantoprazole Sodium 40 mg 03/08/22 09:00 03/08/22 08:02 Pantoprazole 40 Mg Sdv IVP 40 mg DAILY MARI Administration PFSH Anesthesia Medical History Abdominal aortic aneurysm (AAA) 3.0 cm to 5.0 cm in diameter in female 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 Hazel, 2013 S/P cataract extraction and insertion of intraocular lens bilateral S/P cervical spinal fusion ACDFF Dr. Dawn 12/07/2015 S/P right coronary artery (RCA) stent placement (~05/2019) Family History Other Cancer Rheumatoid arthritis Denies family history of Chronic kidney disease (CKD) Systemic lupus erythematosus (SLE) in adult Lung disease Hypertension Social History Smoking and tobacco status: former smoker Alcohol intake: current Alcohol intake frequency: holidays/special occasions only History of recent travel: No (12/10/19) Data Anesthesia : 03/08/22 04:02 03/08/22 04:02 Short CBC 03/07/22 03/08/22 Range/Units 06:01 04:02 WBC 10.6 H 15.7 H (4.0-10.0) 10^3/uL Hgb 13.2 11.6 (11.5-15.3) g/dL Hct 41.3 36.5 L (37.0-47.0) % MCV 81.0 80.9 L (81-99) fl Plt Count 257 223 (130-400) 10^3/cmm Neut % (Auto) 76.7 89.0 % Neut # (Auto) 8.11 H 14.01 H (1.8-7.7) 10^3/uL BMP 03/07/22 03/08/22 06:01 04:02 Sodium 140 137 Potassium 2.9 L 4.0 Chloride 101 105 Carbon Dioxide 25 21 L BUN 14 25 H Creatinine 1.3 H 3.4 H Glucose 151 H 122 H Calcium 9.9 9.6 Cardiac Enzymes 03/07/22 03/07/22 03/07/22 Range/Units 06:01 06:01 08:35 Creatine Kinase (26-192) U/L Troponin T Baseline 27 H (0-10) ng/L Troponin T 120 Minute 22.80 H (0-10) ng/L Delta Troponin T -4.20 L (0-10) ABS# Troponin T Hi Sens 6Hr (0-10) ng/L Troponin T Hi Sens 6Hr Delta (0-12) ng/L NT-Pro-B Natriuret Pep 3086 H (0-125) pg/mL 03/07/22 03/08/22 Range/Units 12:20 04:02 Creatine Kinase 127 (26-192) U/L Troponin T Baseline (0-10) ng/L Troponin T 120 Minute (0-10) ng/L Delta Troponin T (0-10) ABS# Troponin T Hi Sens 6Hr 23.60 H (0-10) ng/L Troponin T Hi Sens 6Hr Delta -3.40 L (0-12) ng/L NT-Pro-B Natriuret Pep (0-125) pg/mL Liver Function 03/07/22 03/08/22 Range/Units 06:01 04:02 Total Bilirubin 0.8 0.6 (0.15-1.2) mg/dL AST 21 25 (0-32) U/L ALT 13 12 (0-33) U/L Alkaline Phosphatase 167 H 143 H (35-105) IU/L Albumin 4.1 3.5 (3.5-5.2) g/dL Urine 03/07/22 Range/Units 06:50 Urine Color Red (Yellow) Urine Appearance Bloody A (CLEAR) Urine pH 9 H (5-7) Ur Specific [place] 1.015 (1.005-1.030) Urine Protein 3+ H (Negative) Urine Glucose (UA) Norm (Normal) Urine Ketones Negative (Negative) Urine Nitrate Negative (Negative) Urine Bilirubin Neg (Negative) Ur Leukocyte Esterase 1+ H (Negative) Urine RBC Too numerous to cnt H (0-2) /hpf Urine WBC 10-15 H (0-5) /hpf Coags 03/08/22 04:02 PT 14.60 INR 1.10 Microbiology 03/07/22 08:16 Blood Culture - Preliminary Blood NEGATIVE TO DATE 03/07/22 06:50 Urine Culture - Preliminary Urine,Clean Catch 03/07/22 13:47 Blood Culture - Preliminary Blood SPECIMEN COLLECTED Cardiac Studies: Echocardiogram Ultrasound 04/09/21 Sestamibi Stress Test (Cardiology) 09/09/21
[2022-03-08 13:42] LABS: Anion Gap 15.1 (5-19); Blood Urea Nitrogen 30 mg/dL (8-23); Calcium 9.7 mg/dL (8.5-10.5); Carbon Dioxide 20 mmol/L (22-29); Chloride 108 mmol/L (98-107); Glucose 121 mg/dL (65-115); Osmolality Calculated 295 mOsm/kg (285-295); Potassium 4.1 mmol/L (3.5-5.1); Sodium 139 mmol/L (136-145)
--- NOTE | 2022-03-08 14:49 | PC.NURSE ---
Pt to surgery via OR staff
[2022-03-08] MEDS: iohexol 300 mg/mL 50 mL Btl (OR ONLY) XX (15:17)
--- NOTE | 2022-03-08 15:25 | P.OP_ITS ---
Operative Report Date of procedure: March 08, 2022 Pre-op diagnosis: Right ureteral obstruction, likely clot related Post-op diagnosis: Right ureteral obstruction likely clot related Procedure done: 1. Cystoscopy with right retrograde ureteropyelogram 2. Right ureteral stent placement (8.5 Sammarinese by 26 cm double-pigtail without string Specimens removed/disposition: None Pathology: None Surgeon: Leny Anesthesia: General Estimated blood loss: None Urine output: Not measured Complications: None Findings: Multiple filling defects in the proximal ureter and renal pelvis consistent with clot. Stent placed without difficulty. 8.5 Sammarinese by 26 cm double-pigtail without string. Functioning well at the completion of the procedure Brief History: Mrs. Martinez is a 71-year-old white female recently presented with gross hematuria and acute onset of flank pain of unclear etiology. Her right kidney which was her primary kidney (severe atrophy and nonfunction of the left) demonstrate obstruction, and new onset of filling defects in the collecting system suspicious for clot. No other soft tissue densities could be identified on that image or old CT scans within the last year. Her renal function deteriorated and it was elected after KUB demonstrated persistence of contrast retained in the collecting system to proceed with right ureteral stent placement urgently. Procedure: After urgent evaluation examination and obtaining of informed consent she was taken to the operating suite on 03/08/2022 where general anesthesia was administered without difficulty after appropriate timeout was performed, SCDs confirmed to be functioning, preoperative antibiotics administered, beta-lynne protocol confirmed. Prepped and draped in usual sterile fashion in dorsolithotomy position paying careful attention to avoiding pressure points. 21 Sammarinese cystoscope with 30 degree lens was introduced into the Riether meatus and advanced into the bladder under videoscopy. The bladder was systematically examined and found to be within normal limits. There was no clot. No mucosal abnormalities were identified. Flexible tip guidewire was advanced up the right ureter into the upper pole calyx area. An open ureteral catheter was advanced over the guidewire and the wire was removed and a right retrograde ureteropyelogram was then performed demonstrating multiple filling defects in the renal pelvis, middle portion infundibulum, and proximal ureter consistent with clot. The wire was replaced through the open-ended ureteral catheter and the catheter removed. A 8.5 Sammarinese by 26 cm double-pigtail stent was then advanced over the guidewire through the cystoscope into appropriate position as confirmed via fluoroscopy and cystoscopy. Stent confirmed to be functioning. Bladder drained with a 18 Sammarinese catheter and procedure was completed. Tolerated procedure well without complications and returned to the ICU in stable condition PLANS: 1. Maintain ureteral stent 2. Etiology of bleeding still unclear. After recovers from her acute illness we will review repeat endoscopy likely flexible to evaluate the upper urinary tract for potential sources of bleeding
--- NOTE | 2022-03-08 18:07 | PC.NURSE ---
1537 Pt returned from surgery. Connected to ICU monitors. VSS. Oximask in place, along with OPA. OPA removed per RT. Dark red output noted to Phyllis. 1809 Pt resting in bed, states that she feels better. oximask remains in place. Repositioned as needed. Will monitor.
[2022-03-09] VITALS (22 sets, daily range): BP systolic 137–183; BP diastolic 57–96; PULSE 61–114; RESP 16–27; TEMP 36.6–37; O2SAT 84–96
[2022-03-09] MEDS: nitroglycerin 1 gm/inch oint Pkt 1 INCH TOPICAL ×2 (00:31→06:03)
[2022-03-09] MEDS: hyDRALAzine 20 mg/mL INJ 1 mL 10 MG IVP (02:20)
[2022-03-09] MEDS: sodium chloride 0.9% 1,000 ML 100 ML IV ×3 (02:20→22:23)
[2022-03-09 03:46] LABS: Basophils % 0.2 %; Hematocrit 34.5 % (37.0-47.0); Hemoglobin 10.7 g/dL (11.5-15.3); Lymphocytes # 0.3 10^3/uL (0.8-4.8); Lymphocytes % 2.7 %; Mean Corpuscular Hemoglobin 25.7 pg (28.0-34.0); Mean Corpuscular Volume 82.7 fl (81-99); Mean Platelet Volume 11.5 fL (7.4-10.4); Monocytes # 0.2 10^3/uL (0.2-0.9); Monocytes % 1.7 %; Neutrophils # 11.99 10^3/uL (1.8-7.7); Neutrophils % 94.7 %; Nucleated Red Blood Cells % 0 %; Platelet Count 186 10^3/cmm (130-400); Red Blood Count 4.17 10^6/uL (4.1-5.3); Red Cell Distribution Width 16.6 % (12.1-15.1); White Blood Count 12.7 10^3/uL (4.0-10.0)
[2022-03-09 04:11] LABS: Alanine Aminotransferase 11 U/L (0-33); Albumin Level 2.8 g/dL (3.5-5.2); Alkaline Phosphatase 125 IU/L (35-105); Aspartate Amino Transferase 14 U/L (0-32); Blood Urea Nitrogen 30 mg/dL (8-23); Calcium 9.3 mg/dL (8.5-10.5); Carbon Dioxide 19 mmol/L (22-29); Chloride 113 mmol/L (98-107); Globulin 2.2 g/dL (1.3-4.6); Glucose 118 mg/dL (65-115); Osmolality Calculated 299 mOsm/kg (285-295); Sodium 141 mmol/L (136-145); Total Bilirubin 0.4 mg/dL (0.15-1.2)
[2022-03-09] MEDS: cefTRIAXone 1,000 MG in sodium chloride 0.9% (plus) 50 ML 100 MG IV (06:03)
--- NOTE | 2022-03-09 07:21 | ANE.PACU2 ---
Inpatient post-anesthesia follow up: Airway intact: Yes Vital signs: Temperature 98.6 F Pulse Rate 68 Respiratory Rate 20 Blood Pressure 160/83 Pulse Oximetry 94 Oxygen Delivery Me thod [Rate & Nasal Cannula Delivery Changed T o] Oxygen Delivery Me thod [ Room Air Current Rate & Del nishi] Oxygen Delivery Me thod Nasal Cannula Oxygen Flow Rate [ Rate & 2 Delivery Changed T o] Oxygen Flow Rate 2 Fraction of Inspir ed Oxygen Hydration adequate: Yes Nausea and vomiting: No Pain level: 2 Mental status: Baseline
[2022-03-09] MEDS: pantoprazole 40 mg SDV IVP (08:16)
[2022-03-09] MEDS: amlodipine 5 mg Tablet PO (08:17)
[2022-03-09] MEDS: carvedilol 25 mg Tablet PO ×2 (08:17→20:02)
--- NOTE | 2022-03-09 09:51 | P.PN_ITS ---
Subjective Subjective: Patient was seen this morning, she sitting up in bed, on 2 L, she is alert to person, not to place, not to time, she complains of some right flank pain, no fevers overnight, no cough, she does follow commands Vitals/I&O/Wt Last Vital Signs Temp 98.2 F 03/09/22 08:00 Pulse 76 03/09/22 08:00 Resp 21 H 03/09/22 08:00 BP 164/70 03/09/22 08:00 Pulse Ox 93 03/09/22 08:00 03/08/22 03/09/22 03/09/22 22:59 06:59 14:59 Intake Total 1000 / 1163.833 960 / 2123.833 40 / 40 Output Total 400 / 400 Balance 600 / 763.833 960 / 1723.833 40 / 40 Weight last 48 hrs Weight 69.445 kg Weight 66.678 kg Weight 59.024 kg Physical Exam 2 Const: COMMON NORMALS: no acute distress GENERAL APPEARANCE: cooperative ORIENTATION/CONSCIOUSNESS: Yes awake and Yes oriented to person; not oriented to place and not oriented to time HENMT: COMMON NORMALS: normocephalic HEAD & SCALP: normocephalic Resp: COMMON NORMALS: normal respiratory effort, No retractions, No use of accessory muscles and clear to auscultation bilaterally AUSCULTATION: clear to auscultation bilaterally Cardio: COMMON NORMALS: regular rate, regular rhythm, S1 normal heart sound present and S2 normal heart sound present RATE: regular rate RHYTHM: regular rhythm HEART SOUNDS: S1 normal heart sound present and S2 normal heart sound present GI: COMMON NORMALS: Normal to inspection, nondistended, normoactive bowel sounds present, Soft to palpation and non-tender PALPATION: Yes Soft to p alpation Extremity: COMMON NORMALS: no pedal edema Neuro: SENSORIUM/ORIENTATION: Yes oriented to person, No oriented to place and No oriented to time Psych: COMMON NORMALS: mental status grossly normal Urinary Catheter Management: Ferguson: Cath Placed During This Visit: yes, but has since been removed by the nurse Reason for Continuing Indwelling Catheter: Accurate Measurement of Urinary Output in Critically Ill Patients Urinary Catheter Date of Insertion: 03/08/22 Urinary Catheter Time of Insertion: 15:20 Date Urinary Catheter Removed: 03/08/22 Time Urinary Catheter Discontinued: 15:05 Data : 04/09/22 02:45 03/09/22 02:45 Micro: Microbiology 03/07/22 06:50 Urine Culture - Final Urine,Clean Catch 03/07/22 13:47 Blood Culture - Preliminary Blood NEGATIVE TO DATE 03/07/22 08:16 Blood Culture - Preliminary Blood NEGATIVE TO DATE A&P Assessment and plan (1) Ureteral obstruction, right: Patient presented with abdominal pain, and has significant ureteral obstruction, with urinary leak from the right kidney. Pain control as needed. She has had significant vomiting with narcotics in the past. Allergy to morphine, codeine, hydrocodone, oxycodone is noted. She tolerated fentanyl yesterday. Currently she denies any pain. Appreciate urology evaluation. They are concerned with acute bleed. As infection not completely ruled out patient has been started on Rocephin Note that CTA did not show any renal vein thrombosis, or renal artery thrombosis. I will review the scan again with radiology today. She has developed acute kidney injury. Continue hydration currently. Avoid renal toxic medication. Check CPK 127 -Patient status post right ureteral stent placement -Creatinine down to 1.9 -Remains on Rocephin -Blood cultures so far negative -Urine culture so far negative Status: Acute (2) Encephalopathy: From my discussion with the emergency department physician this occurred after Ativan was given. This is now resolved consistent with acute metabolic encephalopathy. CT head negative TSH checked and normal. Note patient also has history of thyroid nodule. This will need to be followed up as an outpatient. -This morning alert to person, not to place, not to time, does follow commands -Episodes of choking -Transition to clears -Will consult speech therapy -Aspiration precautions -PT OT Status: Acute (3) Abnormal EKG: Patient denies any chest discomfort. Although troponin is elevated no significant delta. Plan on continuing her beta-lynne,, statin, nitroglycerin ointment Troponin elevation consistent with type II elevation Echocardiogram shows ?Limited views were obtained as patient refused to complete the ?study. ?Grossly LV systolic function is normal.? Regional wall motion ?abnormalities cannot be accuately assessed because of limited ?views ?Grossly normal mitral valve ?Comparison with prior echocardiograms not possible because of ?limited views -Low probability cardiac stress test in August 2021 Full anticoagulation contraindicated currently secondary to significant hematuria. Status: Acute (4) Hypokalemia: Significant hypokalemia on arrival to emergency department is being supplemented. This is resolved. Magnesium level was checked and normal. Resolved Status: Acute (5) Hypertensive urgency: She has received morning medications of Norvasc, carvedilol. Nitroglycerin ointment has been placed. She has been put on a nicardipine drip. Hydralazine has been given IV x1. Continue hydralazine as needed Hopefully can wean off nicardipine today. Off Cardene drip Currently on clonidine, Norvasc, Coreg Status: Acute Plan Multiple other medical problems as outlined in past medical history Thyroid nodule, needs to follow-up as outpatient with ENT Full code at this time Significant hematuria, contraindication to anticoagulation currently. 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
[2022-03-09] MEDS: cloNIDine 0.1 mg Tablet PO ×2 (10:33→16:40)
[2022-03-09] MEDS: aspirin 81 mg EC Tablet PO (10:33)
--- NOTE | 2022-03-09 11:47 | PC.NURSE ---
Report given to Roro SLAUGHTER. Pt transported to [facility] via . Tolerated well.
[2022-03-09] MEDS: isosorbide mononitrate ER 30 mg Tablet 15 MG PO (11:52)
[2022-03-09] MEDS: acetaminophen 325 mg Tablet 650 MG PO (23:26)
[2022-03-10] VITALS (8 sets, daily range): BP systolic 149–191; BP diastolic 70–91; PULSE 58–75; RESP 13–18; TEMP 36.4–36.8; O2SAT 90–95
[2022-03-10 05:33] LABS: Basophils % 0.1 %; Hematocrit 32.7 % (37.0-47.0); Hemoglobin 10.1 g/dL (11.5-15.3); Lymphocytes # 0.6 10^3/uL (0.8-4.8); Lymphocytes % 8.8 %; Mean Corpuscular HGB Conc 30.9 g/dL (30.0-36.0); Mean Corpuscular Hemoglobin 26.5 pg (28.0-34.0); Mean Corpuscular Volume 85.8 fl (81-99); Mean Platelet Volume 11.6 fL (7.4-10.4); Monocytes # 0.5 10^3/uL (0.2-0.9); Neutrophils # 6.03 10^3/uL (1.8-7.7); Neutrophils % 83.8 %; Nucleated Red Blood Cells % 0 %; Platelet Count 159 10^3/cmm (130-400); Red Blood Count 3.81 10^6/uL (4.1-5.3); Red Cell Distribution Width 16.9 % (12.1-15.1); White Blood Count 7.2 10^3/uL (4.0-10.0)
[2022-03-10 05:57] LABS: NT Pro B Type Natriuretic Pept 3457 pg/mL (0-125); Procalcitonin 0.23 ng/mL (0-0.5)
[2022-03-10 06:03] LABS: Alanine Aminotransferase 17 U/L (0-33); Albumin Level 2.9 g/dL (3.5-5.2); Alkaline Phosphatase 112 IU/L (35-105); Anion Gap 13.8 (5-19); Aspartate Amino Transferase 21 U/L (0-32); Blood Urea Nitrogen 27 mg/dL (8-23); C Reactive Protein 51.7 mg/L (0.0-4.9); Calcium 9.4 mg/dL (8.5-10.5); Carbon Dioxide 20 mmol/L (22-29); Chloride 110 mmol/L (98-107); Glucose 113 mg/dL (65-115); Magnesium 2.4 mg/dL (1.7-2.3); Osmolality Calculated 296 mOsm/kg (285-295); Phosphorus 3.2 mg/dL (2.5-4.5); Potassium 3.8 mmol/L (3.5-5.1); Sodium 140 mmol/L (136-145); Total Bilirubin 0.4 mg/dL (0.15-1.2); Total Protein 4.9 g/dL (6.6-8.7)
--- NOTE | 2022-03-10 06:19 | PC.NURSE ---
PATIENT UP TO CHAIR AT THIS TIME. TOLERATED ACTIVITY WELL. NO COMPLAINTS OF DISCOMFORT MADE.
[2022-03-10] MEDS: cefTRIAXone 1,000 MG in sodium chloride 0.9% (plus) 50 ML 100 MG IV (06:47)
--- NOTE | 2022-03-10 09:14 | PC.SOCIAL ---
IMM update IMM updated with patient. Verbalized an understanding. Copy Pg 2 provided. Initialled, dated, timed, and placed in chart.
--- NOTE | 2022-03-10 09:18 | PM.PN ---
Subjective Subjective: Patient was seen this morning, she is alert to person, to place, not to time, she tells me that she feels cold, follows all commands, tells me that she feels better, Vitals/I&O/Wt Last Vital Signs Temp 97.5 F L 03/10/22 03:48 Pulse 58 L 03/10/22 07:47 Resp 13 03/10/22 07:47 BP 191/91 03/10/22 07:47 Pulse Ox 95 03/10/22 07:47 03/09/22 03/10/22 03/10/22 22:59 06:59 14:59 Intake Total 1240 / 2233.333 480 / 2713.333 50 / 50 Output Total 700 / 700 Balance 540 / 1533.333 480 / 2013.333 50 / 50 Weight last 48 hrs Weight 71.169 kg Weight 69.445 kg Physical Exam Const: COMMON NORMALS: no acute distress ORIENTATION/CONSCIOUSNESS: Yes awake, Yes oriented to person and Yes oriented to place Resp: COMMON NORMALS: normal respiratory effort, No retractions, No use of accessory muscles and clear to auscultation bilaterally AUSCULTATION: clear to auscultation bilaterally Cardio: COMMON NORMALS: regular rate, regular rhythm, S1 normal heart sound present and S2 normal heart sound present RATE: regular rate RHYTHM: regular rhythm HEART SOUNDS: S1 normal heart sound present and S2 normal heart sound present GI: COMMON NORMALS: Normal to inspection, nondistended, normoactive bowel sounds present, Soft to palpation, non-tender and No hepatosplenomegaly present PALPATION: Yes Soft to palpation and Yes No hepatosplenomegaly present Extremity: COMMON NORMALS: no pedal edema Neuro: SENSORIUM/ORIENTATION: Yes oriented to person and Yes oriented to place Psych: COMMON NORMALS: mental status grossly normal Urinary Catheter Management: Ferguson: Cath Placed During This Visit: yes, but has since been removed by the nurse Reason for Continuing Indwelling Catheter: Accurate Measurement of Urinary Output in Critically Ill Patients Urinary Catheter Date of Insertion: 03/08/22 Urinary Catheter Time of Insertion: 15:20 Date Urinary Catheter Removed: 03/08/22 Time Urinary Catheter Discontinued: 15:05 Data : 03/10/22 04:50 03/10/22 04:50 Micro: Microbiology 03/07/22 06:50 Urine Culture - Final Urine,Clean Catch A&P Assessment and plan (1) Ureteral obstruction, right: Patient presented with abdominal pain, and has significant ureteral obstruction, with urinary leak from the right kidney. Pain control as needed. She has had significant vomiting with narcotics in the past. Allergy to morphine, codeine, hydrocodone, oxycodone is noted. She tolerated fentanyl yesterday. Currently she denies any pain. Appreciate urology evaluation. They are concerned with acute bleed. As infection not completely ruled out patient has been started on Rocephin Note that CTA did not show any renal vein thrombosis, or renal artery thrombosis. I will review the scan again with radiology today. She has developed acute kidney injury. Continue hydration currently. Avoid renal toxic medication. Check CPK 127 -Patient status post right ureteral stent placement -Creatinine down to 0.9 -Remains on Rocephin -Blood cultures so far negative -Urine culture so far negative Status: Acute (2) Encephalopathy: From my discussion with the emergency department physician this occurred after Ativan was given. This is now resolved consistent with acute metabolic encephalopathy. CT head negative TSH checked and normal. Note patient also has history of thyroid nodule. This will need to be followed up as an outpatient. -This morning alert to person, to place, not to time, does follow commands -Episodes of choking -Seen by speech therapy, does have occasional coughing and throat clearing, advance to dysphagia diet. -consult speech therapy -Aspiration precautions -PT OT Status: Acute (3) Abnormal EKG: Patient denies any chest discomfort. Although troponin is elevated no significant delta. Plan on continuing her beta-lynne,, statin, nitroglycerin ointment Troponin elevation consistent with type II elevation Echocardiogram shows ?Limited views were obtained as patient refused to complete the ?study. ?Grossly LV systolic function is normal.? Regional wall motion ?abnormalities cannot be accuately assessed because of limited ?views ?Grossly normal mitral valve ?Comparison with prior echocardiograms not possible because of ?limited views -Low probability cardiac stress test in August 2021 Full anticoagulation contraindicated currently secondary to significant hematuria. Status: Acute (4) Hypokalemia: Significant hypokalemia on arrival to emergency department is being supplemented. This is resolved. Magnesium level was checked and normal. Resolved Status: Acute (5) Hypertensive urgency: She has received morning medications of Norvasc, carvedilol. Nitroglycerin ointment has been placed. She has been put on a nicardipine drip. Hydralazine has been given IV x1. Continue hydralazine as needed Hopefully can wean off nicardipine today. Off Cardene drip Currently on clonidine, Norvasc, Coreg Status: Acute Plan Multiple other medical problems as outlined in past medical history Thyroid nodule, needs to follow-up as outpatient with ENT Full code at this time Significant hematuria, contraindication to anticoagulation currently. SCDs for DVT prophylaxis Attestations Medical Necessity Statement*: Patient requires hospitalization for hematuria, hypertensive urgency, acute encephalopathy Coding Level of Care Code Acute Configuration Release Manager for Chg Fwd Diagnoses Ureteral obstruction, right N13.5 Encephalopathy G93.40 Abnormal EKG R94.31 Hypokalemia E87.6 Hypertensive urgency I16.0
[2022-03-10] MEDS: cloNIDine 0.1 mg Tablet PO ×2 (09:45→17:05)
[2022-03-10] MEDS: amlodipine 5 mg Tablet PO (09:45)
[2022-03-10] MEDS: aspirin 81 mg EC Tablet PO (09:45)
[2022-03-10] MEDS: carvedilol 25 mg Tablet PO ×2 (09:46→21:37)
[2022-03-10] MEDS: pantoprazole 40 mg SDV IVP (09:46)
[2022-03-10] MEDS: isosorbide mononitrate ER 30 mg Tablet 15 MG PO (09:46)
[2022-03-10] MEDS: haloperidol inj 5 mg/mL INJ 1 mL IM (14:40)
[2022-03-10] MEDS: haloperidol inj 5 mg/mL INJ 1 mL 1 MG IM (17:06)
--- NOTE | 2022-03-10 18:34 | PC.NURSE ---
PT PULLED OUT QUESADA CATH, BULB INFLATED. DR. OROURKE NOTIFIED AND CAME TO SEE PT IN ROOM.
[2022-03-11] VITALS (7 sets, daily range): BP systolic 120–204; BP diastolic 68–92; PULSE 60–66; RESP 17–20; TEMP 36.4–36.9; O2SAT 93–97
[2022-03-11 05:34] LABS: Alanine Aminotransferase 35 U/L (0-33); Albumin Level 3.1 g/dL (3.5-5.2); Alkaline Phosphatase 113 IU/L (35-105); Anion Gap 12.5 (5-19); Aspartate Amino Transferase 37 U/L (0-32); Blood Urea Nitrogen 25 mg/dL (8-23); C Reactive Protein 17.7 mg/L (0.0-4.9); Calcium 9.4 mg/dL (8.5-10.5); Carbon Dioxide 22 mmol/L (22-29); Chloride 110 mmol/L (98-107); Globulin 2.6 g/dL (1.3-4.6); Glucose 95 mg/dL (65-115); Magnesium 2.3 mg/dL (1.7-2.3); Osmolality Calculated 296 mOsm/kg (285-295); Phosphorus 2.4 mg/dL (2.5-4.5); Potassium 3.5 mmol/L (3.5-5.1); Sodium 141 mmol/L (136-145); Total Bilirubin 0.5 mg/dL (0.15-1.2); Total Protein 5.7 g/dL (6.6-8.7)
[2022-03-11 06:15] LABS: NT Pro B Type Natriuretic Pept 2468 pg/mL (0-125); Procalcitonin 0.11 ng/mL (0-0.5)
[2022-03-11] MEDS: cefTRIAXone 1,000 MG in sodium chloride 0.9% (plus) 50 ML 100 MG IV (06:24)
[2022-03-11 06:49] LABS: Basophils % 0.3 %; Eosinophils # 0.1 10^3/uL (0.0-0.8); Hematocrit 35.7 % (37.0-47.0); Hemoglobin 11.2 g/dL (11.5-15.3); Mean Corpuscular HGB Conc 31.4 g/dL (30.0-36.0); Mean Corpuscular Hemoglobin 25.9 pg (28.0-34.0); Mean Corpuscular Volume 82.4 fl (81-99); Mean Platelet Volume 11.8 fL (7.4-10.4); Monocytes # 0.6 10^3/uL (0.2-0.9); Monocytes % 8.8 %; Neutrophils # 4.76 10^3/uL (1.8-7.7); Neutrophils % 73.4 %; Nucleated Red Blood Cells % 0 %; Platelet Count 220 10^3/cmm (130-400); Red Blood Count 4.33 10^6/uL (4.1-5.3); Red Cell Distribution Width 16.5 % (12.1-15.1); White Blood Count 6.5 10^3/uL (4.0-10.0)
[2022-03-11] MEDS: carvedilol 25 mg Tablet PO ×2 (08:22→20:33)
[2022-03-11] MEDS: amlodipine 5 mg Tablet PO (08:22)
[2022-03-11] MEDS: isosorbide mononitrate ER 30 mg Tablet 15 MG PO (08:22)
[2022-03-11] MEDS: aspirin 81 mg EC Tablet PO (08:22)
[2022-03-11] MEDS: cloNIDine 0.1 mg Tablet PO ×2 (08:24→16:38)
[2022-03-11] MEDS: pantoprazole 40 mg SDV IVP (08:24)
--- NOTE | 2022-03-11 17:58 | P.PN_ITS ---
Subjective Subjective: She is awake, alert, interactive, makes eye contact, responds to questions, although answers not reliable. She is fidgety. She does not know where she is. She does not remember the year. Denies pain or discomfort. Vitals/I&O/Wt Last Vital Signs Temp 98.5 F 03/11/22 15:42 Pulse 64 03/11/22 15:42 Resp 18 03/11/22 15:42 BP 195/77 03/11/22 15:42 Pulse Ox 96 03/11/22 15:42 03/11/22 03/11/22 03/11/22 06:59 14:59 22:59 Intake Total 1010 / 1010 Balance 1010 / 1010 Weight last 48 hrs Weight 70.896 kg Weight 71.169 kg Physical Exam Const: COMMON NORMALS: alert; negative for patient oriented x3 GENERAL APPEARANCE: cooperative ORIEN TATION/CONSCIOUSNESS: Yes awake and Yes confused HENMT: COMMON NORMALS: normocephalic, EAC's normal, Normal external nose present and moist oral mucous membranes HEAD & SCALP: normocephalic NOSE: Normal external nose present EXTERNAL AUDITORY CANAL: EAC's normal Neck/C-Spine: COMMON NORMALS: no meningeal signs Chest: CHEST: Yes Symmetrical chest wall rise Resp: COMMON NORMALS: clear to auscultation bilaterally AUSCULTATION: clear to auscultation bilaterally Cardio: COMMON NORMALS: regular rate, regular rhythm and No murmurs present (Cardio) RATE: regular rate RHYTHM: regular rhythm GI: COMMON NORMALS: Normal to inspection, nondistended, normoactive bowel sounds present, Soft to palpation and non-tender PALPATION: Yes Soft to palpation Extremity: COMMON NORMALS: no pedal edema Neuro: COMMON NORMALS: moves all extremities; negative for patient oriented x3 SENSORIUM/ORIENTATION: Yes alert MENINGEAL SIGNS: Yes no meningeal signs Psych: COMMON NORMALS: mental status grossly normal Skin: COMMON NORMALS: no wounds RASHES: no rashes Urinary Catheter Management: Ferguson: Cath Placed During This Visit: yes, but has since been removed by the nurse Reason for Continuing Indwelling Catheter: Decision to DC Catheter Urinary Catheter Date of Insertion: 03/08/22 Urinary Catheter Time of Insertion: 15:20 Date Urinary Catheter Removed: 03/10/22 Time Urinary Catheter Discontinued: 16:00 Data : 03/11/22 04:52 03/11/22 04:52 A&P Assessment and plan (1) Encephalopathy: She appears to be confused, she does not know where she is, or what year it is. This appears possibly worse than yesterday, although I was not able to confirm with her who visited her today. When trying to call him the call goes to voicemail which is not set up. She denies discomfort or pain. We will keep trying to reach out to the to see if this is closer to his baseline, and whether or not he is comfortable further managing things at home. Continue IV antibiotic for now for suspected UTI. CT head negative TSH checked and normal. Note patient also has history of thyroid nodule. This will need to be followed up as an outpatient. -Episodes of choking -Seen by speech therapy, does have occasional coughing and throat clearing, advance to dysphagia diet. -Aspiration precautions -PT OT Status: Acute (2) Ureteral obstruction, right: Maintain stent. Continue IV antibiotic for now, transition to p.o. antibiotic at discharge. Follow-up with urology. Patient presented with abdominal pain, and has significant ureteral obstruction, with urinary leak from the right kidney. Pain control as needed. She has had significant vomiting with narcotics in the past. Allergy to morphine, codeine, hydrocodone, oxycodone is noted. She tolerated fentanyl yesterday. Currently she denies any pain. Appreciate urology evaluation. They are concerned with acute bleed. -Patient status post right ureteral stent placement -Creatinine down to 0.9 -Remains on Rocephin -Blood cultures so far negative -Urine culture so far negative Status: Acute (3) Abnormal EKG: Continues without chest pain or pressure. Monitor for change in symptoms. Patient denies any chest discomfort. Although troponin is elevated no significant delta. Plan on continuing her beta-lynne,, statin, nitroglycerin ointment Troponin elevation consistent with type II elevation Echocardiogram shows ?Limited views were obtained as patient refused to complete the ?study. ?Grossly LV systolic function is normal.? Regional wall motion ?abnormalities cannot be accuately assessed because of limited ?views ?Grossly normal mitral valve ?Comparison with prior echocardiograms not possible because of ?limited views -Low probability cardiac stress test in August 2021 Full anticoagulation contraindicated currently secondary to significant hematuria. Status: Acute (4) Hypokalemia: Replaced Status: Acute (5) Hypertensive urgency: Increase amlodipine to 10 mg. Continue amlodipine, clonidine, Imdur. She is off nicardipine drip. Continue hydralazine as needed Status: Acute Plan Multiple other medical problems as outlined in past medical history Thyroid nodule, needs to follow-up as outpatient Full code at this time Significant hematuria, contraindication to anticoagulation currently. SCDs for DVT prophylaxis Attestations Medical Necessity Statement*: Continue admission for assessment of management of acute encephalopathy, IV antibiotics for possible complicated UTI, discharge planning. 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
[2022-03-11] MEDS: acetaminophen 325 mg Tablet 650 MG PO (23:36)
[2022-03-12 04:58] VITALS: BP 145/74; PULSE 63; RESP 16; TEMP 36.7; O2SAT 94
--- NOTE | 2022-03-12 05:03 | PC.NURSE ---
SHIFT SUMMARY Has slept very little tonight. Is confused as to place, date and time. Told me she was homeless and had nowhere to go. When asked about living in [place] she told me she used to but not anymore. Does tell me she has a very poor memory. Has some dysarthria but easy to understand. Is very unsteady when up to BSC and forgets to call nurse for assist. Moves arms and legs around alot and is uncoordinated. Able to follow commands and no weakness noted. Will yell out or bed alarm will sound when she is trying to get up. N Baylee did sit in with pt for awhile during night due to her trying to get OOB often thinking she needed to urinate. Urinates well when she goes but has been up several times without any result. Says she feels like she needs to go and has urgency. Have explained about stents may be causing some of the feelings and voices understanding but then forgets. Was given po Tylenol X1 for discomfort c/o.
[2022-03-12 05:15] LABS: Basophils % 0.5 %; Eosinophils # 0.3 10^3/uL (0.0-0.8); Eosinophils % 4.4 %; Hematocrit 35.8 % (37.0-47.0); Hemoglobin 11.5 g/dL (11.5-15.3); Lymphocytes # 1.1 10^3/uL (0.8-4.8); Lymphocytes % 18.7 %; Mean Corpuscular HGB Conc 32.1 g/dL (30.0-36.0); Mean Corpuscular Hemoglobin 26.1 pg (28.0-34.0); Mean Corpuscular Volume 81.4 fl (81-99); Mean Platelet Volume 10.9 fL (7.4-10.4); Monocytes # 0.6 10^3/uL (0.2-0.9); Monocytes % 10.1 %; Neutrophils % 65.9 %; Nucleated Red Blood Cells % 0 %; Platelet Count 215 10^3/cmm (130-400); White Blood Count 5.6 10^3/uL (4.0-10.0)
[2022-03-12 05:39] LABS: Alanine Aminotransferase 43 U/L (0-33); Alkaline Phosphatase 109 IU/L (35-105); Anion Gap 12.5 (5-19); Aspartate Amino Transferase 36 U/L (0-32); Blood Urea Nitrogen 20 mg/dL (8-23); Calcium 9.2 mg/dL (8.5-10.5); Carbon Dioxide 21 mmol/L (22-29); Chloride 111 mmol/L (98-107); Globulin 1.9 g/dL (1.3-4.6); Glucose 94 mg/dL (65-115); Osmolality Calculated 294 mOsm/kg (285-295); Phosphorus 3.1 mg/dL (2.5-4.5); Potassium 3.5 mmol/L (3.5-5.1); Sodium 141 mmol/L (136-145); Total Bilirubin 0.5 mg/dL (0.15-1.2); Total Protein 4.9 g/dL (6.6-8.7)
[2022-03-12 05:57] LABS: NT Pro B Type Natriuretic Pept 2666 pg/mL (0-125); Procalcitonin 0.08 ng/mL (0-0.5)
[2022-03-12] MEDS: cefTRIAXone 1,000 MG in sodium chloride 0.9% (plus) 50 ML 100 MG IV (06:20)
[2022-03-12 07:17] VITALS: BP 188/87; PULSE 67; RESP 20; TEMP 36.8; O2SAT 96
[2022-03-12] MEDS: isosorbide mononitrate ER 30 mg Tablet 15 MG PO (08:35)
[2022-03-12] MEDS: amlodipine 10 mg Tablet PO (08:36)
[2022-03-12] MEDS: aspirin 81 mg EC Tablet PO (08:36)
[2022-03-12] MEDS: carvedilol 25 mg Tablet PO ×2 (08:37→20:36)
[2022-03-12] MEDS: pantoprazole DR 40 mg Tablet PO (08:37)
[2022-03-12] MEDS: cloNIDine 0.1 mg Tablet PO ×2 (08:38→16:19)
--- NOTE | 2022-03-12 10:26 | PC.SOCIAL ---
IMM Update Pg. 2 of IMM updated and reviewed with patient, who verbalized understanding. Copy provided.
[2022-03-12 11:20] VITALS: BP 122/64; PULSE 63; RESP 17; TEMP 36.7; O2SAT 94
[2022-03-12 15:23] VITALS: BP 165/77; PULSE 67; RESP 17; TEMP 36.7; O2SAT 95
[2022-03-12 20:00] VITALS: BP 137/84; PULSE 68; RESP 18; TEMP 36.6; O2SAT 96
--- NOTE | 2022-03-12 20:41 | PM.PN ---
Subjective Subjective: She denies any pain or discomfort. Today she is oriented to being in [place]. In the hospital. She does not remember the year. Reported to be unsteady on her feet try to walk to the restroom. Vitals/I&O/Wt Last Vital Signs Temp 97.8 F 03/12/22 20:00 Pulse 68 03/12/22 20:00 Resp 18 03/12/22 20:00 BP 137/84 03/12/22 20:00 Pulse Ox 96 03/12/22 20:00 03/12/22 03/12/22 03/12/22 06:59 14:59 22:59 Intake Total 300 / 1790 720 / 720 Output Total 400 / 1200 200 / 200 Balance -100 / 590 720 / 720 -200 / 520 Weight last 48 hrs Weight 69.173 kg Weight 70.896 kg Physical Exam Narrative: at bedside during second visit Const: COMMON NORMALS: alert; negative for patient oriented x3 GENERAL APPEARANCE: cooperative ORIENTATION/CONSCIOUSNESS: Yes awake and Yes confused OTHER: Labile affect HENMT: COMMON NORMALS: normocephalic, EAC's normal, Normal external nose present and moist oral mucous membranes HEAD & SCALP: normocephalic NOSE: Normal external nose present EXTERNAL AUDITORY CANAL: EAC's normal Neck/C-Spine: COMMON NORMALS: no meningeal signs Chest: CHEST: Yes Symmetrical chest wall rise Resp: COMMON NORMALS: clear to auscultation bilaterally AUSCULTATION: clear to auscultation bilaterally Cardio: COMMON NORMALS: regular rate, regular rhythm and No murmurs present (Cardio) RATE: regular rate RHYTHM: regular rhythm GI: COMMON NORMALS: Normal to inspection, nondistended, normoactive bowel sounds present, Soft to palpation and non-tender PALPATION: Yes Soft to palpation Extremity: COMMON NORMALS: no pedal edema Neuro: COMMON NORMALS: moves all extremities; negative for patient oriented x3 SENSORIUM/ORIENTATION: Yes alert MENINGEAL SIGNS: Yes no meningeal signs Psych: COMMON NORMALS: mental status grossly normal Skin: COMMON NORMALS: no wounds RASHES: no rashes Urinary Catheter Management: Ferguson: Cath Placed During This Visit: yes, but has since been removed by the nurse Reason for Continuing Indwelling Catheter: Decision to DC Catheter Urinary Catheter Date of Insertion: 03/08/22 Urinary Catheter Time of Insertion: 15:20 Date Urinary Catheter Removed: 03/10/22 Time Urinary Catheter Discontinued: 16:00 Data : 03/12/22 05:00 03/12/22 05:00 Micro: Microbiology 03/07/22 13:47 Blood Culture - Final Blood NO GROWTH AFTER 5 DAYS 03/07/22 08:16 Blood Culture - Final Blood NO GROWTH AFTER 5 DAYS A&P Assessment and plan (1) Encephalopathy: Today with labile affect, some impulsive behavior. Reported to be unsteady trying to walk to the bathroom. Similar observations were reported by one-to-one sitter yesterday. Has not had PT in the last 2 days. Not entirely clear whether she is able to get around safely. Discussed additional options with her and her . Consideration of SNF prior to return home to work on balance, strength. We will reassess her mental status again tomorrow. Continue to reorient. Continue IV antibiotic for now for suspected UTI. CT head negative TSH checked and normal. Note patient also has history of thyroid nodule. This will need to be followed up as an outpatient. -Episodes of choking -Seen by speech therapy, does have occasional coughing and throat clearing, advance to dysphagia diet. -Aspiration precautions -PT OT Status: Acute (2) Ureteral obstruction, right: Maintain stent. Continue IV antibiotic for now, transition to p.o. antibiotic at discharge. Follow-up with urology. Patient presented with abdominal pain, and has significant ureteral obstruction, with urinary leak from the right kidney. Pain control as needed. She has had significant vomiting with narcotics in the past. Allergy to morphine, codeine, hydrocodone, oxycodone is noted. She tolerated fentanyl yesterday. Currently she denies any pain. Appreciate urology evaluation. They are concerned with acute bleed. -Patient status post right ureteral stent placement -Creatinine down to 0.9 -Remains on Rocephin -Blood cultures so far negative -Urine culture so far negative Status: Acute (3) Abnormal EKG: Continues without chest pain or pressure. Monitor for change in symptoms. Patient denies any chest discomfort. Although troponin is elevated no significant delta. Plan on continuing her beta-lynne,, statin, nitroglycerin ointment Troponin elevation consistent with type II elevation Echocardiogram shows ?Limited views were obtained as patient refused to complete the ?study. ?Grossly LV systolic function is normal.? Regional wall motion ?abnormalities cannot be accuately assessed because of limited ?views ?Grossly normal mitral valve ?Comparison with prior echocardiograms not possible because of ?limited views -Low probability cardiac stress test in August 2021 Full anticoagulation contraindicated currently secondary to significant hematuria. Status: Acute (4) Hypokalemia: Replaced Status: Acute (5) Hypertensive urgency: Blood pressure is better with increase of amlodipine to 10 mg. Continue clonidine, Imdur. She is off nicardipine drip. Continue hydralazine as needed Status: Acute Plan Multiple other medical problems as outlined in past medical history Thyroid nodule, needs to follow-up as outpatient Full code at this time Significant hematuria, contraindication to anticoagulation currently. SCDs for DVT prophylaxis Attestations Medical Necessity Statement*: Continue admission for reassessment of encephalopathy, reassessment of functional status, disposition planning and arrangement. Coding Level of Care Code Acute Nurse Substance Abuse for Ludmilag Adair Diagnoses Encephalopathy G93.40 Ureteral obstruction, right N13.5 Abnormal EKG R94.31 Hypokalemia E87.6 Hypertensive urgency I16.0
[2022-03-13 04:00] VITALS: BP 160/80; PULSE 72; RESP 18; TEMP 36.6; O2SAT 97
[2022-03-13 05:25] LABS: Basophils % 0.4 %; Eosinophils # 0.3 10^3/uL (0.0-0.8); Eosinophils % 4.5 %; Hematocrit 37.5 % (37.0-47.0); Hemoglobin 11.7 g/dL (11.5-15.3); Lymphocytes # 1.1 10^3/uL (0.8-4.8); Lymphocytes % 15.6 %; Mean Corpuscular HGB Conc 31.2 g/dL (30.0-36.0); Mean Corpuscular Hemoglobin 26.2 pg (28.0-34.0); Mean Corpuscular Volume 83.9 fl (81-99); Mean Platelet Volume 10.7 fL (7.4-10.4); Monocytes # 0.7 10^3/uL (0.2-0.9); Monocytes % 10.6 %; Neutrophils % 68.5 %; Nucleated Red Blood Cells % 0 %; Platelet Count 218 10^3/cmm (130-400); Red Blood Count 4.47 10^6/uL (4.1-5.3); Red Cell Distribution Width 15.9 % (12.1-15.1); White Blood Count 6.7 10^3/uL (4.0-10.0)
[2022-03-13 05:41] LABS: Alanine Aminotransferase 41 U/L (0-33); Albumin Level 3.2 g/dL (3.5-5.2); Alkaline Phosphatase 119 IU/L (35-105); Anion Gap 13.5 (5-19); Aspartate Amino Transferase 26 U/L (0-32); Blood Urea Nitrogen 11 mg/dL (8-23); Calcium 9.1 mg/dL (8.5-10.5); Carbon Dioxide 20 mmol/L (22-29); Chloride 109 mmol/L (98-107); Glucose 106 mg/dL (65-115); Osmolality Calculated 288 mOsm/kg (285-295); Potassium 3.5 mmol/L (3.5-5.1); Sodium 139 mmol/L (136-145); Total Bilirubin 0.7 mg/dL (0.15-1.2); Total Protein 5.2 g/dL (6.6-8.7)
[2022-03-13] MEDS: cefTRIAXone 1,000 MG in sodium chloride 0.9% (plus) 50 ML 100 MG IV (06:26)
[2022-03-13 07:55] VITALS: BP 186/85; PULSE 60; RESP 13; O2SAT 98
[2022-03-13] MEDS: isosorbide mononitrate ER 30 mg Tablet 15 MG PO (08:49)
[2022-03-13] MEDS: cloNIDine 0.1 mg Tablet PO ×2 (08:49→17:08)
[2022-03-13] MEDS: aspirin 81 mg EC Tablet PO (08:49)
[2022-03-13] MEDS: amlodipine 10 mg Tablet PO (08:49)
[2022-03-13] MEDS: pantoprazole DR 40 mg Tablet PO (08:50)
[2022-03-13] MEDS: carvedilol 25 mg Tablet PO ×2 (08:52→20:15)
--- NOTE | 2022-03-13 14:21 | PC.PHAR ---
-pts states the pt hasnt taken her meds in months-pts states the pt had someone helping her with her meds but states they stop setting them up for her so she stop taking them-medications entered were last filled 11/15/21 30d/s except for the atorvastatin 40mg daily last filled 10/24/21 30d/s-shadi yoon on medsurg wanted medications entered states she will also let know pt not taking meds-notes are made in the pharmacy comments
[2022-03-13 15:25] VITALS: BP 169/75; PULSE 95; RESP 13; O2SAT 95
--- NOTE | 2022-03-13 16:28 | PC.NURSE ---
Pt keeps turning bed alarm off as staff continues to reset the bed alarm.
--- NOTE | 2022-03-13 18:33 | P.PN_ITS ---
Subjective Subjective: Reports he is doing all right today. Denies abdominal pain or discomfort. No chest pain or pressure. No trouble breathing. Worked with therapy today. Vitals/I&O/Wt Last Vital Signs Temp 97.9 F 03/13/22 04:00 Pulse 95 03/13/22 15:25 Resp 13 03/13/22 15:25 BP 169/75 03/13/22 15:25 Pulse Ox 95 03/13/22 15:25 03/13/22 03/13/22 03/13/22 06:59 14:59 22:59 Intake Total 240 / 960 350 / 350 Output Total 400 / 980 Balance -160 / -20 350 / 350 Weight last 48 hrs Weight 66.361 kg Weight 69.173 kg Physical Exam Const: COMMON NORMALS: alert GENERAL APPEARANCE: cooperative ORIENTATION/CONSCIOUSNESS: Yes awake and Yes confused OTHER: Today she is in better spirits. HENMT: COMMON NORMALS: normocephalic, EAC's normal, Normal external nose present and moist oral mucous membranes HEAD & SCALP: normocephalic NOSE: Normal external nose present EXTERNAL AUDITORY CANAL: EAC's normal Neck/C-Spine: COMMON NORMALS: no meningeal signs Chest: CHEST: Yes Symmetrical chest wall rise Resp: COMMON NORMALS: clear to auscultation bilaterally AUSCULTATION: clear to auscultation bilaterally Cardio: COMMON NORMALS: regular rate, regular rhythm and No murmurs present (Cardio) RATE: regular rate RHYTHM: regular rhythm GI: COMMON NORMALS: Normal to inspection, nondistended, normoactive bowel sounds present, Soft to palpation and non-tender PALPATION: Yes Soft to palpation Extremity: COMMON NORMALS: no pedal edema Neuro: COMMON NORMALS: moves all extremities SENSORIUM/ORIENTATION: Yes alert MENINGEAL SIGNS: Yes no meningeal signs Psych: COMMON NORMALS: mental status grossly normal Skin: COMMON NORMALS: no wounds RASHES: no rashes Urinary Catheter Management: Ferguson: Cath Placed During This Visit: yes, but has since been removed by the nurse Reason for Continuing Indwelling Catheter: Decision to DC Catheter Urinary Catheter Date of Insertion: 03/08/22 Urinary Catheter Time of Insertion: 15:20 Date Urinary Catheter Removed: 03/10/22 Time Urinary Catheter Discontinued: 16:00 Data : 03/13/22 05:10 03/13/22 05:10 Micro: Microbiology 03/07/22 13:47 Blood Culture - Final Blood NO GROWTH AFTER 5 DAYS A&P Assessment and plan (1) Encephalopathy: Today she appears to be calm, cooperative, worked well with physical therapy with [facility]. Is found to be impulsive. Still confused although following directions. Would benefit from supervision for safety. She reportedly was briefly visited by her , but when I was notified and came to the room he was already gone. Could not reach him by phone on either phone number. We are trying to work out a safe discharge plan as she does require supervision and further treatments for increase strengthening and balance, with question of whether this would be safe to do at home. Discussed with case management. We will continue trying to coordinate with regarding safe discharge plan as she otherwise may be at risk of falling down and injury. Mental status appears to be gradually improving. We will refer her for additional evaluation by MRI brain to exclude additional causes, although otherwise this may be slow improvement from delirium associated with acute condition. Continue empiric antibiotic for now for suspected UTI. CT head negative TSH checked and normal. Note patient also has history of thyroid nodule. This will need to be followed up as an outpatient. -Episodes of choking -Seen by speech therapy, does have occasional coughing and throat clearing, adv ance to dysphagia diet. -Aspiration precautions -PT OT Status: Acute (2) Ureteral obstruction, right: Maintain stent. Continue IV antibiotic for now, transition to p.o. antibiotic at discharge. Follow-up with urology. Patient presented with abdominal pain, and has significant ureteral obstruction, with urinary leak from the right kidney. Pain control as needed. She has had significant vomiting with narcotics in the past. Allergy to morphine, codeine, hydrocodone, oxycodone is noted. She tolerated fentanyl yesterday. Currently she denies any pain. Appreciate urology evaluation. They are concerned with acute bleed. -Patient status post right ureteral stent placement -Creatinine down to 0.9 -Remains on Rocephin -Blood cultures so far negative -Urine culture so far negative Status: Acute (3) Abnormal EKG: Continues without chest pain or pressure. Monitor for change in symptoms. Patient denies any chest discomfort. Although troponin is elevated no significant delta. Plan on continuing her beta-lynne,, statin, nitroglycerin ointment Troponin elevation consistent with type II elevation Echocardiogram shows ?Limited views were obtained as patient refused to complete the ?study. ?Grossly LV systolic function is normal.? Regional wall motion ?abnormalities cannot be accuately assessed because of limited ?views ?Grossly normal mitral valve ?Comparison with prior echocardiograms not possible because of ?limited views -Low probability cardiac stress test in August 2021 Full anticoagulation contraindicated currently secondary to significant hematuria. Status: Acute (4) Hypokalemia: Replaced Status: Acute (5) Hypertensive urgency: Blood pressure is better with increase of amlodipine to 10 mg. Continue clonidine, Imdur. She is off nicardipine drip. Continue hydralazine as needed Status: Acute Plan Multiple other medical problems as outlined in past medical history Thyroid nodule, needs to follow-up as outpatient Full code at this time Significant hematuria, contraindication to anticoagulation currently. SCDs for DVT prophylaxis Attestations Medical Necessity Statement*: Continue admission for assessment management of acute encephalopathy, arrangements for safe discharge given impulsivity, with poor strength and balance, at risk of falling and injury. Coding Level of Care Code Acute Program Evaluation Consultant for [facility] Fwd Diagnoses Encephalopathy G93.40 Ureteral obstruction, right N13.5 Abnormal EKG R94.31 Hypokalemia E87.6 Hypertensive urgency I16.0
[2022-03-13 20:00] VITALS: BP 175/82; PULSE 100; RESP 18; TEMP 36.6; O2SAT 97
[2022-03-13] MEDS: quetiapine 100 mg Tablet PO (20:15)
[2022-03-14] VITALS (9 sets, daily range): BP systolic 132–160; BP diastolic 74–78; PULSE 61–83; RESP 16–20; TEMP 36.8–36.9; O2SAT 92–96
[2022-03-14] MEDS: cefTRIAXone 1,000 MG in sodium chloride 0.9% (plus) 50 ML 100 MG IV (06:25)
[2022-03-14 08:33] LABS: Basophils % 0.5 %; Eosinophils # 0.3 10^3/uL (0.0-0.8); Eosinophils % 4.1 %; Hematocrit 36.3 % (37.0-47.0); Hemoglobin 11.6 g/dL (11.5-15.3); Lymphocytes % 14.9 %; Mean Corpuscular Hemoglobin 26.4 pg (28.0-34.0); Mean Corpuscular Volume 82.7 fl (81-99); Monocytes # 0.7 10^3/uL (0.2-0.9); Neutrophils # 4.58 10^3/uL (1.8-7.7); Nucleated Red Blood Cells % 0 %; Platelet Count 206 10^3/cmm (130-400); Red Blood Count 4.39 10^6/uL (4.1-5.3); Red Cell Distribution Width 16.2 % (12.1-15.1); White Blood Count 6.6 10^3/uL (4.0-10.0)
[2022-03-14 09:10] LABS: Alanine Aminotransferase 35 U/L (0-33); Alkaline Phosphatase 116 IU/L (35-105); Anion Gap 13.7 (5-19); Aspartate Amino Transferase 19 U/L (0-32); Blood Urea Nitrogen 11 mg/dL (8-23); Carbon Dioxide 21 mmol/L (22-29); Chloride 111 mmol/L (98-107); Globulin 2.6 g/dL (1.3-4.6); Glucose 101 mg/dL (65-115); Osmolality Calculated 294 mOsm/kg (285-295); Potassium 3.7 mmol/L (3.5-5.1); Sodium 142 mmol/L (136-145); Total Bilirubin 0.6 mg/dL (0.15-1.2); Total Protein 5.6 g/dL (6.6-8.7)
[2022-03-14] MEDS: carvedilol 25 mg Tablet PO (09:31)
[2022-03-14] MEDS: cloNIDine 0.1 mg Tablet PO (09:31)
[2022-03-14] MEDS: amlodipine 10 mg Tablet PO (09:31)
[2022-03-14] MEDS: aspirin 81 mg EC Tablet PO (09:31)
[2022-03-14] MEDS: isosorbide mononitrate ER 30 mg Tablet 15 MG PO (09:31)
[2022-03-14] MEDS: pantoprazole DR 40 mg Tablet PO (09:31)
--- NOTE | 2022-03-14 12:54 | PC.SOCIAL ---
IMM update IMM updated with patient's . Copy Pg 2 left at bedside. Verbalized an understanding. Initialled, dated, timed, and placed in chart.
--- NOTE | 2022-03-14 14:53 | P.DS_ITS ---
Discharge Providers Date of Admission: 03/07/22 09:27 Date of Discharge: March 14, 2022 Attending Provider at Admission: Milan Limon MD Attending Provider at Discharge: Yoseph John Primary Care Provider: Silvia Peng MD Diagnoses at Discharge Discharge Diagnosis (1) Encephalopathy: Status: Acute (2) Ureteral obstruction, right: Status: Acute (3) Abnormal EKG: Status: Acute (4) Hypokalemia: Status: Acute (5) Hypertensive urgency: Status: Acute Reason for Visit Reason for Visit: ABD PAIN Hospital Course Hospital Course 71-year-old lady was admitted after presentation with complaints of abdominal pain, radiating to her back on presentation also with altered mental status, agitation, elevated blood pressure requiring IV nicardipine, with finding of possible urinary tract infection was started on antibiotic, and due to right renal/ureteral obstruction was assessed by urology. Underwent cystoscopy with right retrograde ureteropyelogram which found multiple filling defects in the renal pelvis, middle portion infundibulum and proximal ureter consistent with clot. Right ureteral stent placed. Plavix were held during hospitalization due to hematuria. Etiology of bleeding was unclear. Hematuria resolved without recurrence. Urine culture eventually unrevealing. Underwent 7 days of antibiotic therapy. She will follow-up with urology for reassessment, further consideration of sources of bleeding, stent management. Encephalopathy overall quite significantly improved, but she is still having some difficulties with impulsive behavior, balance. He is able to ambulate with supervision and cueing. long term facility was considered, however, she is doing quite well, and family they had declined, home health care was considered, however, they are unable to pursue this currently due to issues with insurance, but feels will be staying close by, and [facility] As she appears to be close to baseline but not entirely back at baseline with regards to mental status as per discussion with her , CT head showed no acute intracranial hemorrhage or mass-effect, changes of microvascular disease noted, she is additionally referred for assessment by MRI of the brain. Acute encephalopathy may well be secondary to acute illness and may just be taking a while to resolve completely, although given noted memory difficulties during prior hospitalization at the end of 2020, in case of persistent cog nitive/memory deficits, please consider assessment for dementia. Additionally incidentally found to have a thyroid nodule for which she is referred for assessment by thyroid ultrasound. Physical Exam Const: COMMON NORMALS: alert GENERAL APPEARANCE: cooperative ORIENTATION/CONSCIOUSNESS: Yes awake and Yes confused HENMT: COMMON NORMALS: normocephalic, EAC's normal, Normal external nose present and moist oral mucous membranes HEAD & SCALP: normocephalic NOSE: Normal external nose present EXTERNAL AUDITORY CANAL: EAC's normal Neck/C-Spine: COMMON NORMALS: no meningeal signs Chest: CHEST: Yes Symmetrical chest wall rise Resp: COMMON NORMALS: clear to auscultation bilaterally AUSCULTATION: clear to auscultation bilaterally Cardio: COMMON NORMALS: regular rate, regular rhythm and No murmurs present (Cardio) RATE: regular rate RHYTHM: regular rhythm GI: COMMON NORMALS: Normal to inspection, nondistended, normoactive bowel sounds present, Soft to palpation and non-tender PALPATION: Yes Soft to palpation Extremity: COMMON NORMALS: no pedal edema Neuro: COMMON NORMALS: moves all extremities SENSORIUM/ORIENTATION: Yes alert MENINGEAL SIGNS: Yes no meningeal signs Psych: COMMON NORMALS: mental status grossly normal Skin: COMMON NORMALS: no wounds RASHES: no rashes Urinary Catheter Management: Ferguson: Cath Placed During This Visit: yes, but has since been removed by the nurse Reason for Continuing Indwelling Catheter: Decision to DC Catheter Urinary Catheter Date of Insertion: 03/08/22 Urinary Catheter Time of Insertion: 15:20 Date Urinary Catheter Removed: 03/10/22 Time Urinary Catheter Discontinued: 16:00 Discharge Data Studies Completed and Pending Completed Studies During Hospitalization Category Date Time Status CT angio chest abdomen pelvis Stat Cat Scan 03/07/22 06:[address] head wo con* [id number] Routine Cat Scan 03/07/22 18:[address] kidney stone [id number] Stat Cat Scan 03/07/22 08:13 Completed XR KUB [id number] Routine Exams 03/08/22 07:33 Completed XR chest 1V portable [id number] Stat Exams 03/07/22 06:15 Completed CV. echo limited [id number] Routine Ultrasound 03/08/22 06:00 Completed Pending at discharge Category Date Time Status Complete Blood Count w/Auto AM LABS Lab 03/15/22 04:00 Ordered Comprehensive Metabolic Panel AM LABS Lab 03/15/22 04:00 Ordered Radiology Impressions Chest/Abdomen/Pelvis CTA 03/07/22 06:14 IMPRESSION: 1. Mild interstitial pulmonary edema. Otherwise, no acute findings. 2. Similar ectasia of the descending thoracic aorta as detailed above. 3. Similar 2.6 cm left thyroid nodule. Recommend further evaluation with nonemergent thyroid ultrasound if not already performed. IMPRESSION: 1. The right kidney appears mildly edematous with surrounding perinephric stranding and mild fullness of the right renal collecting system. No stones are seen along the course of the right ureter, though there may be some ill-defined hyperdense material in the right renal collecting system. Correlate with any history of hematuria and consider further evaluation with CT urogram as clinically warranted. 2. Similar aneurysmal dilation of the abdominal aorta and right common iliac artery. Chest X-Ray 03/07/22 06:15 IMPRESSION: No acute cardiopulmonary abnormality. Abdomen/Pelvis CT 03/07/22 08:13 IMPRESSION: 1. Obstructing filling defect in the upper pole calyces and collecting system RIGHT kidney extending into the renal pelvis and proximal ureter. Duplicated RIGHT renal collecting system. Delayed emptying with persistent upper pole nephr ogram. 2. Associated urine leak with fluid and contrast about the RIGHT kidney and retroperitoneum extending into the pelvis. No drainable urinoma. 3. Location of urine leak is difficult to localize but urine and contrast mainly centered along the upper pole renal pelvis near the UPJ. 4. No other significant changes from earlier today. 5. Stable infrarenal abdominal aortic aneurysm. 6. Ferguson catheter. Notified Pradip Brown DO at 03/07/2022 9:[address] 03/07/22 18:38 IMPRESSION: 1. No acute intracranial hemorrhage or mass effect. 2. Changes of microvascular disease. 3. No definite acute infarct by CT, see above. 4. Other findings discussed above. KUB X-Ray 03/08/22 07:33 IMPRESSION: Findings a persistent ureteral obstruction. Appearance of nephrogram may be due to lower pole infarct or unobstructed lower pole collecting system. Laboratory Results WBC 6.6 10^3/uL (4.0-10.0) 03/14/22 08:20 RBC 4.39 10^6/uL (4.1-5.3) 03/14/22 08:20 Hgb 11.6 g/dL (11.5-15.3) 03/14/22 08:20 Hct 36.3 % (37.0-47.0) L 03/14/22 08:20 MCV 82.7 fl (81-99) 03/14/22 08:20 MCH 26.4 pg (28.0-34.0) L 03/14/22 08:20 MCHC 32.0 g/dL (30.0-36.0) 03/14/22 08:20 RDW 16.2 % (12.1-15.1) H 03/14/22 08:20 Plt Count 206 10^3/cmm (130-400) 03/14/22 08:20 MPV 11.0 fL (7.4-10.4) H 03/14/22 08:20 Neut % (Auto) 69.0 % 03/14/22 08:20 Lymph % (Auto) 14.9 % 03/14/22 08:20 Turner % (Auto) 11.0 % 03/14/22 08:20 Eos % (Auto) 4.1 % 03/14/22 08:20 Baso % (Auto) 0.5 % 03/14/22 08:20 Neut # (Auto) 4.58 10^3/uL (1.8-7.7) 03/14/22 08:20 Lymph # (Auto) 1.0 10^3/uL (0.8-4.8) 03/14/22 08:20 Turner # (Auto) 0.7 10^3/uL (0.2-0.9) 03/14/22 08:20 Eos # (Auto) 0.3 10^3/uL (0.0-0.8) 03/14/22 08:20 Baso # (Auto) 0.0 10^3/uL (0.0-0.1) 03/14/22 08:20 Nucleated RBC % (auto) 0 % 03/14/22 08:20 Nucleated RBCs # 0.0 /100WBC 03/14/22 08:20 PT 14.60 SECONDS (12.1-14.9) 03/08/22 04:02 INR 1.10 (0.8-1.2) 03/08/22 04:02 Sodium 142 mmol/L (136-145) 03/14/22 08:20 Potassium 3.7 mmol/L (3.5-5.1) 03/14/22 08:20 Chloride 111 mmol/L (98-107) H 03/14/22 08:20 Carbon Dioxide 21 mmol/L (22-29) L 03/14/22 08:20 Anion Gap 13.7 (5-19) 03/14/22 08:20 BUN 11 mg/dL (8-23) 03/14/22 08:20 Creatinine 0.7 mg/dL (0.5-0.9) 03/14/22 08:20 GFR Calculation Not Reportable 03/14/22 08:20 Glucose 101 mg/dL (65-115) 03/14/22 08:20 Calculated Osmolality 294 mOsm/kg (285-295) 03/14/22 08:20 Calcium 9.0 mg/dL (8.5-10.5) 03/14/22 08:20 Phosphorus 3.1 mg/dL (2.5-4.5) 03/12/22 05:00 Magnesium 2.0 mg/dL (1.7-2.3) 03/12/22 05:00 Total Bilirubin 0.6 mg/dL (0.15-1.2) 03/14/22 08:20 AST 19 U/L (0-32) 03/14/22 08:20 ALT 35 U/L (0-33) H 03/14/22 08:20 Alkaline Phosphatase 116 IU/L (35-105) H 03/14/22 08:20 Creatine Kinase 127 U/L (26-192) 03/08/22 04:02 Troponin T Baseline 27 ng/L (0-10) H 03/07/22 06:01 Troponin T 120 Minute 22.80 ng/L (0-10) H 03/07/22 08:35 Delta Troponin T -4.20 ABS# (0-10) L 03/07/22 08:35 Troponin T Hi Sens 6Hr 23.60 ng/L (0-10) H 03/07/22 12:20 Troponin T Hi Sens 6Hr Delta -3.40 ng/L (0-12) L 03/07/22 12:20 C-Reactive Protein 9.0 mg/L (0.0-4.9) H 03/12/22 05:00 NT-Pro-B Natriuret Pep 2666 pg/mL (0-125) H 03/12/22 05:00 Total Protein 5.6 g/dL (6.6-8.7) L 03/14/22 08:20 Albumin 3.0 g/dL (3.5-5.2) L 03/14/22 08:20 Globulin 2.6 g/dL (1.3-4.6) 03/14/22 08:20 Procalcitonin 0.08 ng/mL (0-0.5) 03/12/22 05:00 TSH 1.15 uIU/mL (0.27-4.20) 03/07/22 08:35 Urine Color Red (Yellow) 03/07/22 06:50 Urine Appearance Bloody (CLEAR) A 03/07/22 06:50 Urine pH 9 (5-7) H 03/07/22 06:50 Ur Specific [place] 1.015 (1.005-1.030) 03/07/22 06:50 Urine Protein 3+ (Negative) H 03/07/22 06:50 Urine Glucose (UA) Norm (Normal) 03/07/22 06:50 Urine Ketones Negative (Negative) 03/07/22 06:50 Urine Blood 3+ (Negative) H 03/07/22 06:50 Urine Nitrate Negative (Negative) 03/07/22 06:50 Urine Bilirubin Neg (Negative) 03/07/22 06:50 Prot Sulfosalicylic Acd Positive (Negative) 03/07/22 06:50 Urine Urobilinogen Norm mg/dL (Negative) 03/07/22 06:50 Ur Leukocyte Esterase 1+ (Negative) H 03/07/22 06:50 Urine RBC Too numerous to cnt /hpf (0-2) H 03/07/22 06:50 Urine WBC 10-15 /hpf (0-5) H 03/07/22 06:50 Ur Squamous Epith Cells 0-4 /hpf (0-5) H 03/07/22 06:50 Amorphous Sediment Not Reportable 03/07/22 06:50 Urine Bacteria 1+ /hpf (NONE) H 03/07/22 06:50 Urine Mucus 1+ /hpf 03/07/22 06:50 Vitals Last Vital Signs Temp 98.3 F 03/14/22 11:26 Pulse 68 03/14/22 11:26 Resp 18 03/14/22 11:26 BP 132/74 03/14/22 11:26 Pulse Ox 96 03/14/22 11:26 Discharge Plan Discharge Patient Disposition: Home Condition: Stable Prescriptions: New carvedilol 25 mg Tablet 25 mg PO BID@0900,2100 Qty: 180 0RF clonidine HCl 0.1 mg Tablet 0.1 mg PO BID Qty: 180 0RF isosorbide mononitrate 30 mg Tablet Extended Release 24 Hr 15 mg PO DAILY Qty: 90 0RF aspirin 81 mg Tablet,Delayed Release (Dr/Ec) 81 mg PO DAILY Qty: 90 0RF amlodipine 10 mg Tablet 10 mg PO DAILY Qty: 90 0RF atorvastatin 40 mg tablet 40 mg PO QPM Qty: 90 0RF Continued clopidogrel 75 mg tablet 75 mg PO DAILY 0RF Nitrostat 0.4 mg Tablet, Sublingual 0.4 mg SUBLINGUAL Q5M PRN (Reason: Chest Pain) 0RF Rx Instructions: do not exceed 3 doses per episode Discontinued atorvastatin 40 mg tablet 40 mg PO DAILY 0RF carvedilol 25 mg tablet 37.5 mg PO BID 0RF isosorbide mononitrate 30 mg tablet extended release 24 hr 15 mg PO DAILY 0RF Discharge Orders: Discharge Order (Routine); Ordered 03/14/22 Ordered By: Yoseph John Other Ambulatory Orders: MR head wo/w con [id number] (Routine) Timeframe: 1 Week Facility: [facility] - Location: Radiology [facility] Ordered By: Yoseph John thyroid [id number] (Routine) Timeframe: 1 Week Facility: [facility] - Location: Radiology [facility] Ordered By: Yoseph John Referrals: Silvia Peng MD [Primary Care Provider] - 03/20/22 9:45 am Star Michele MD [Physician] - 1 week (Dr. Michele's office will call you with an appointment.) Discharge Diet: As Directed Discharge Activity: Use walker/crutches as instructed and As per PT/OT instructions Patient Instructions: Clonidine (By mouth), Aspirin (By mouth), Amlodipine (By mouth), Isosorbide Mononitrate (By mouth), Atorvastatin (By mouth), Carvedilol (By mouth), Chronic Hypertension (GEN), Thyroid Nodules (GEN), Fall Prevention (GEN), Level 1 National Dysphagia Diet (GEN), Aspiration Precautions (GEN), Ureteral Stent Placement (GEN), Opioid Safety Activity Restrictions/Additional Instructions: Please maintain fall precautions at home. Maintain aspiration precautions and continue dysphagia pur?ed diet. Follow-up with urology with regards to ureteral stent. Please follow-up with MRI brain for additional assessment of mental status change and balance difficulties. Please follow-up with your primary doctor regarding thyroid nodule. You are referred for additional assessment by thyroid ultrasound. Depending on results please discuss with your primary doctor with your biopsy of the nodule is necessary. Please discuss with your primary doctor regarding memory difficulties, consider formal cognitive assessment and evaluation for dementia. Discharge Attestations Time Spent in Discharge Care*: greater than 30 min Status at Discharge: Cognitive status at discharge: cognitively intact , Behavioral status at discharge: cooperative , Quality Metrics Clinical Quality Measures [ No reported AMI, CVA or VTE this stay] Coding Level of Care Code Acute Chg FW DC note Exam Comprehensive Diagnoses Encephalopathy G93.40 Ureteral obstruction, right N13.5 Abnormal EKG R94.31 Hypokalemia E87.6 Hypertensive urgency I16.0
--- NOTE | 2022-03-14 16:26 | PC.NURSE ---
Discussed discharge with spouse. Verbalized understanding, medications and follow up appointments
== END 2022-03-14 16:32 | disposition home or self-care (01) | DRG 659 ==
LOC: ER 09:59 → ICU 10:04 → MEDSURG 03-09 11:34
PROVIDERS: Family Medicine; Urology; Admitting Provider Internal Medicine; Emergency Provider Family Medicine; PCP Family Medicine; Visit Provider Internal Medicine
PROC: 0TJB8ZZ Inspection of Bladder, Via Natural or Artificial Opening Endoscopic (ICD-10-PCS; CPT 52000; principal; 2022-03-08 14:30)
PROC: 0T768DZ Dilation of Right Ureter with Intraluminal Device, Via Natural or Artificial Opening Endoscopic (ICD-10-PCS; CPT 50605; 2022-03-08 14:30)
DX: N13.5 Crossing vessel and stricture of ureter without hydronephrosis (principal); G93.41 Metabolic encephalopathy; N39.0 Urinary tract infection, site not specified; R39.0 Extravasation of urine; N17.9 Acute kidney failure, unspecified; Z79.02 Long term (current) use of antithrombotics/antiplatelets; R94.31 Abnormal electrocardiogram [ECG] [EKG]; I16.0 Hypertensive urgency; E87.6 Hypokalemia; I10 Essential (primary) hypertension; Z87.891 Personal history of nicotine dependence; N26.1 Atrophy of kidney (terminal); R31.0 Gross hematuria; I25.10 Atherosclerotic heart disease of native coronary artery without angina pectoris; E78.5 Hyperlipidemia, unspecified
CPT/HCPCS: 36415; 51702; 70450; 71045; 71275; 74018; 74174; 74176; 80048; 80053; 81001; 82550; 83735; 83880; 84100; 84145; 84443; 84484; 85025; 85610; 86140; 87040; 87086; 92523; 92610; 93005; 93306; 93308; 96365; 96366; 96372; 96375; 97110; 97116; 97162; 97165; 99285; C2625; C9113; J0360; J0696; J1100; J1630; J2060; J2405; J2550; J2704; J3010; J3480; J3490; J7030; Q9967

== ENCOUNTER 2022-03-29 09:54 | Emergency (ER) | payer MEDICARE, OTHER, SELFPAY ==
--- NOTE | 2022-03-29 10:03 | ECG_ITS ---
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 Measurements Intervals [place] Rate: 59 P: 80 VA: 161 QRS: 25 QRSD: 80 T: 88 QT: 366 QTc: 365 Interpretive Statements SINUS BRADYCARDIA NONSPECIFIC T-WAVE ABNORMALITY Compared to ECG 03/07/2022 13:57:21 Sinus rhythm no longer present T-wave abnormality still present Electronically Signed On 03-29-2022 20:18:51 CDT by Nikki Doe M.D. [email or web address]
--- NOTE | 2022-03-29 10:03 | CT_ITS ---
WS: [id number] CT HEAD NONCONTRAST HISTORY: Symptoms of Acute Stroke TECHNIQUE: Contiguous axial imaging performed through the brain in 2.5 mm imaging. Bone and soft tiss ue windows. Sagittal and coronal reformats reviewed. All CT scans at [facility] use at least one of these dose optimization techniques: automated exposure control; mA and/or kV adjustment per pa tient size (includes targeted exams where dose is matched to clinical indication); or iterative recon struction. DLP: 769.13 mGy-cm. COMPARISON: 03/08/2022 and 11/01/2021 No acute intracranial hemorrhage, midline shift or mass effect. Very mild cerebral atrophy. There is extensive confluent decreased attenuation throughout the white m atter from chronic microvascular ischemic disease. No interval change. Prior lacunar infarct in the L EFT insular ribbon. Ventricles: Mild ventriculomegaly. No inferior displacement of the cerebellar tonsils. Paranasal sinuses: As visualized are clear. Mastoid air cells: Well pneumatized. Calvarium and scalp: Skull is intact with no soft tissue edema or swelling. Moderate atherosclerotic calcification within the intracranial carotid arteries. CT/CT head wo con* [id number] IMPRESSION: 1. No intracranial hemorrhage or edema. 2. Moderate to severe small vessel ischemic changes. No progression since the prior study.
[2022-03-29 10:05] VITALS: BP 127/76; PULSE 66; O2SAT 93
[2022-03-29 10:24] LABS: Basophils # 0.1 10^3/uL (0.0-0.1); Basophils % 1.1 %; Eosinophils # 0.2 10^3/uL (0.0-0.8); Eosinophils % 3.9 %; Hematocrit 38.4 % (37.0-47.0); Hemoglobin 12.1 g/dL (11.5-15.3); Lymphocytes % 17.9 %; Mean Corpuscular HGB Conc 31.5 g/dL (30.0-36.0); Mean Corpuscular Hemoglobin 26.4 pg (28.0-34.0); Mean Corpuscular Volume 83.7 fl (81-99); Mean Platelet Volume 10.4 fL (7.4-10.4); Monocytes # 0.5 10^3/uL (0.2-0.9); Neutrophils # 3.62 10^3/uL (1.8-7.7); Neutrophils % 67.7 %; Nucleated Red Blood Cells % 0 %; Platelet Count 259 10^3/cmm (130-400); Red Blood Count 4.59 10^6/uL (4.1-5.3); Red Cell Distribution Width 16.2 % (12.1-15.1); White Blood Count 5.4 10^3/uL (4.0-10.0)
--- NOTE | 2022-03-29 10:32 | CT_ITS ---
WS: [id number] CT ANGIOGRAM CEREBRAL AND CAROTID ARTERIES HISTORY: acute cva TECHNIQUE: CT angiogram is performed of the carotid and cerebral arteries. During arterial injection imaging is obtained from the skull vertex to the aortic arch in 1.25 mm imaging. Coronal and sagittal reformats are submitted. Additional multi planar reformats of the carotid and cerebral arteries are submitted, MIP imaging also reviewed. NASCET criteria utilized. [facility] at least one of these dose optimization techniques: automated exposure control; mA and/or kV adjust ment per patient size (includes targeted exams where dose is matched to clinical indication); or iter ative reconstruction. CONTRAST: Omnipaque 350; 95 mL IV. DLP: 1351.79 mGy.cm COMPARISON: 11/01/2021 Carotid Angiogram: Right carotid: Common carotid artery: Arises normally from the innominate. Scattered plaque with no high-grade steno sis. Internal carotid artery: Small amount of plaque. No stenosis. External carotid artery: Patent. Left carotid: Common carotid artery: Origin is difficult to visualize. No high-grade stenosis is evident. Scattered plaque throughout the common carotid artery with intimal thickening. No resulting high-grade stenosi s. Internal carotid artery: The bifurcation and intimal thickening. No high-grade stenosis. External carotid artery: Patent. Right vertebral artery: Small caliber throughout its course. No occlusion or stenosis. Left vertebral artery: Origin is not visualized due to plaque. The remaining vertebral arteries paten t with mild atherosclerotic disease. Subclavian arteries: Negative RIGHT. Partially obscured LEFT subclavian with calcification. Upper thorax: Moderate atherosclerotic changes with plaque and intimal thickening at the aortic arch. Thyroid gland: LEFT thyroid nodule measures 2.2 x 1.2 cm without increase in size. Osseous structures: Anterior cervical plate and interbody fixation at C5-6. C4 anterolisthesis by 5 m m. CEREBRAL ANGIOGRAM: Intracranial vertebral arteries: Small caliber distal RIGHT vertebral artery but it is patent. Basilar artery: No significant stenosis or occlusion. No aneurysm. Intracranial Internal carotid arteries: Atherosclerotic changes with no high-grade stenosis. [place] ty of the intracranial carotid arteries. Middle cerebral arteries: Small caliber RIGHT M1 segment is probably congenital. Mild atherosclerotic changes. No intraluminal thrombus. M1 and M2 segments and M3 segments are well-opacified. Anterior cerebral arteries and ACOM: Hypoplastic RIGHT A1 segment. Posterior cerebral arteries and PCOM's: Normal. Dural venous sinuses are normally enhancing. Mastoid air cells: Normal. Paranasal sinuses: Normal. Calvarium: Normal. CT/CT angio headneck* [id number] IMPRESSION: 1. Moderate cervical and intracranial carotid artery atherosclerosis. No high- grade stenoses. No thrombus. 2. Slightly small caliber RIGHT M1 segment but no thrombus. This is probably c ongenital or due to mild atherosclerosis. No [place] occlusion or thro mbus.
[2022-03-29 10:45] VITALS: PULSE 61; RESP 20; O2SAT 93
[2022-03-29 10:53] LABS: Alanine Aminotransferase 13 U/L (0-33); Albumin Level 3.4 g/dL (3.5-5.2); Alkaline Phosphatase 154 IU/L (35-105); Anion Gap 12.6 (5-19); Aspartate Amino Transferase 16 U/L (0-32); Blood Urea Nitrogen 10 mg/dL (8-23); Calcium 8.4 mg/dL (8.5-10.5); Carbon Dioxide 22 mmol/L (22-29); Chloride 107 mmol/L (98-107); Glucose 133 mg/dL (65-115); Osmolality Calculated 287 mOsm/kg (285-295); Potassium 3.6 mmol/L (3.5-5.1); Sodium 138 mmol/L (136-145); Total Bilirubin 0.5 mg/dL (0.15-1.2); Total Protein 5.4 g/dL (6.6-8.7)
[2022-03-29 11:15] VITALS: PULSE 54; RESP 15; O2SAT 94
--- NOTE | 2022-03-29 11:37 | PC.PHAR ---
pt unable to verify medications-called pts tho perdue [phone] no answer-rx written -elisa meredith from [facility] states the medications written on 03/13/22 was picked up except for the plavix states they didnt get rx for that medication states rx last filled 11/15/21 90d/s states the rx does have refills-elisa meredith states the aspirin was bought otc-notes are made in the pharmacy comments
[2022-03-29 11:40] VITALS: O2SAT 88
[2022-03-29] MEDS: iohexol 350 mg/mL 100 mL Btl IV (11:40)
--- NOTE | 2022-03-29 11:47 | PC.NURSE ---
PT IS AWAKE AND ABLE TO IDENTIFY HERSELF. STATED SHE WAS AT SOME KIND OF HOSPITAL. WAS UNABLE TO TELL NURSE THE DAY, YEAR, AND SITUATION.
[2022-03-29 11:52] LABS: Partial Thromboplastin Time 22.4 SECONDS (23.9-36.7)
[2022-03-29 11:59] VITALS: BP 117/57; PULSE 62; RESP 19; O2SAT 94
--- NOTE | 2022-03-29 12:47 | ED_ITS ---
HPI - Neuro Symptoms/Deficit General: Chief Complaint: Neuro Symptoms/Deficit Stated Complaint: STROKE ALERT Time Seen by Provider: 03/29/22 10:03 Source: EMS Mode of arrival: EMS History of Present Illness: 71-year-old female presents emergency room approximately 40 minutes after onset of unresponsiveness. Patient is confused a nd disoriented stroke alert was called in route. Dr. Perdomo arrived in the ER and did assessment. 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 Hazel, 2014 S/P cataract extraction and insertion of intraocular lens bilateral S/P cervical spinal fusion ACDFF Dr. Dawn 12/07/2015 S/P right coronary artery (RCA) stent placement (~05/2019) Family History Mother CAD (coronary artery disease) Father No problems noted. Other Cancer Rheumatoid arthritis Denies family history of Chronic kidney disease (CKD) Systemic lupus erythematosus (SLE) in adult Lung disease Hypertension Social History Smoking and tobacco status: former smoker Alcohol intake: never Marital status: Current occupational status: retired History of recent travel: No (12/10/19) NIH stroke score NIHSS: Level Of Consciousness - 1a: 2 Level Of Consciousness Questions - 1b: One Correct Level Of Consciousness Commands - 1c: One Correct Best Gaze - 2: Normal Visual [place] - 3: No Visual Loss Facial Palsy - 4: Minor Paralysis Motor Arm Right - 5: Drift Motor Arm Left - 5: No Drift Motor Leg Right - 6: No Effort Against [place] Motor Leg Left - 6: No Drift Limb Ataxia - 7: Present In One Limb Sensory - 8: Normal Best Language - 9: No Aphasia Dysarthia - 10: Mild/Moderate Dysarthia Extinction And Inattention - 11: 0 Score: Total Score: 11 Physical Exam HENMT: COMMON NORMALS: normocephalic and atraumatic HEAD & SCALP: normocephalic and atraumatic Neck/C-Spine: COMMON NORMALS: full ROM, no lymphadenopathy, supple and no JVD Resp: COMMON NORMALS: normal respiratory effort, No retractions, No use of accessory muscles and clear to auscultation bilaterally AUSCULTATION: clear to auscultation bilaterally Cardio: COMMON NORMALS: no JVD, regular rate, regular rhythm and No murmurs present (Cardio) RATE: regular rate RHYTHM: regular rhythm GI: COMMON NORMALS: Soft to palpation and No hepatosplenomegaly present AUSCULTATION: Yes normoactive bowel sounds PALPATION: Yes Soft to palpation, No Tenderness to palpation present (GI), No Guarding due to palpation present (GI) and Yes No hepatosplenomegaly present Extremity: COMMON NORMALS: normal to inspection, capillary refill normal, no clubbing, cyanosis or edema, no calf tenderness and no pedal edema Skin: COMMON NORMALS: no rashes or lesions noted GENERAL SKIN EXAM: no rashes or lesions noted Course Vital Signs: Vital signs: Vital Signs Pulse Rate 62 03/29/22 11:59 Respiratory Rate 19 H 03/29/22 11:59 Blood Pressure 117/57 03/29/22 11:59 Pulse Oximetry 94 03/29/22 11:59 MDM - Neuro Symptoms/Deficit Medical Decision Making Dr. Perdomo present in the emergency room and assisted with assessment. We discussed risks and benefits and discussed with the patient. Patient was administered tPA. She had profound improvement while we are waiting for a bed to admit her to she became ambulatory all of her symptoms had resolved. And she demanded to leave. I discussed with her was unable to convince her otherwise and she left AMA Medical Records I reviewed the patient's medical records. Lab Data I reviewed the patient's lab results. : 03/29/22 10:18 03/29/22 10:[address] 03/29/22 10:03 IMPRESSION: 1. No intracranial hemorrhage or edema. 2. Moderate to severe small vessel ischemic changes. No progression since the prior study. Head/Neck CTA 03/29/22 10:32 IMPRESSION: 1. Moderate cervical and intracranial carotid artery atherosclerosis. No high- grade stenoses. No thrombus. 2. Slightly small caliber RIGHT M1 segment but no thrombus. This is probably congenital or due to mild atherosclerosis. No [place] occlusion or thrombus. Laboratory Results WBC 5.4 10^3/uL (4.0-10.0) 03/29/22 10:18 RBC 4.59 10^6/uL (4.1-5.3) 03/29/22 10:18 Hgb 12.1 g/dL (11.5-15.3) 03/29/22 10:18 Hct 38.4 % (37.0-47.0) 03/29/22 10:18 MCV 83.7 fl (81-99) 03/29/22 10:18 MCH 26.4 pg (28.0-34.0) L 03/29/22 10:18 MCHC 31.5 g/dL (30.0-36.0) 03/29/22 10:18 RDW 16.2 % (12.1-15.1) H 03/29/22 10:18 Plt Count 259 10^3/cmm (130-400) 03/29/22 10:18 MPV 10.4 fL (7.4-10.4) 03/29/22 10:18 Neut % (Auto) 67.7 % 03/29/22 10:18 Lymph % (Auto) 17.9 % 03/29/22 10:18 [place] % (Auto) 9.0 % 03/29/22 10:18 Eos % (Auto) 3.9 % 03/29/22 10:18 Baso % (Auto) 1.1 % 03/29/22 10:18 Neut # (Auto) 3.62 10^3/uL (1.8-7.7) 03/29/22 10:18 Lymph # (Auto) 1.0 10^3/uL (0.8-4.8) 03/29/22 10:18 [place] # (Auto) 0.5 10^3/uL (0.2-0.9) 03/29/22 10:18 Eos # (Auto) 0.2 10^3/uL (0.0-0.8) 03/29/22 10:18 Baso # (Auto) 0.1 10^3/uL (0.0-0.1) 03/29/22 10:18 Nucleated RBC % (auto) 0 % 03/29/22 10:18 Nucleated RBCs # 0.0 /100WBC 03/29/22 10:18 PT 14.50 SECONDS (12.1-14.9) 03/29/22 10:56 INR 1.10 (0.8-1.2) 03/29/22 10:56 APTT 22.4 SECONDS (23.9-36.7) L 03/29/22 10:56 Sodium 138 mmol/L (136-145) 03/29/22 10:18 Potassium 3.6 mmol/L (3.5-5.1) 03/29/22 10:18 Chloride 107 mmol/L (98-107) 03/29/22 10:18 Carbon Dioxide 22 mmol/L (22-29) 03/29/22 10:18 Anion Gap 12.6 (5-19) 03/29/22 10:18 BUN 10 mg/dL (8-23) 03/29/22 10:18 Creatinine 0.8 mg/dL (0.5-0.9) 03/29/22 10:18 GFR Calculation Not Reportable 03/29/22 10:18 Glucose 133 mg/dL (65-115) H 03/29/22 10:18 POC Glucose 127 mg/dL (70-110) H 03/29/22 10:04 Calculated Osmolality 287 mOsm/kg (285-295) 03/29/22 10:18 Calcium 8.4 mg/dL (8.5-10.5) L 03/29/22 10:18 Total Bilirubin 0.5 mg/dL (0.15-1.2) 03/29/22 10:18 AST 16 U/L (0-32) 03/29/22 10:18 ALT 13 U/L (0-33) 03/29/22 10:18 Alkaline Phosphatase 154 IU/L (35-105) H 03/29/22 10:18 Total Protein 5.4 g/dL (6.6-8.7) L 03/29/22 10:18 Albumin 3.4 g/dL (3.5-5.2) L 03/29/22 10:18 Globulin 2.0 g/dL (1.3-4.6) 03/29/22 10:18 Critical Care Time Critical Care Time: Critical Care Time: Yes Total Critical Care Time: 35 Attestation: The high probability of a clinically significant, sudden or life threatening deterioration of the patient's neurologic system(s) required my full and direct attention, intervention and personal management. The critical care time is as shown. This time is in addition to time spent performing any reported procedures but includes the following: [x] Data and vital sign review and interpretation [x] Patient assessment, examination and intervention [x] Documentation [x] Medication orders and management Discharge Plan Discharge Patient Disposition: Left Against Medical Advice Clinical Impression: Cerebrovascular accident, High risk medication use Condition: Stable Prescriptions: No Action carvedilol 25 mg Tablet 25 mg PO BID@0900,2100 Qty: 180 0RF clonidine HCl 0.1 mg Tablet 0.1 mg PO BID Qty: 180 0RF isosorbide mononitrate 30 mg Tablet Extended Release 24 Hr 15 mg PO DAILY Qty: 90 0RF aspirin 81 mg Tablet,Delayed Release (Dr/Ec) 81 mg PO DAILY Qty: 90 0RF amlodipine 10 mg Tablet 10 mg PO DAILY Qty: 90 0RF atorvastatin 40 mg tablet 40 mg PO QPM Qty: 90 0RF clopidogrel 75 mg tablet 75 mg PO DAILY 0RF nitroglycerin [Nitrostat] 0.4 mg Tablet, Sublingual 0.4 mg SUBLINGUAL Q5M PRN (Reason: Chest Pain) 0RF Rx Instructions: do not exceed 3 doses per episode Referrals: Silvia Peng MD [Primary Care Provider] - Coding Level of Care Code ED Healthcare Specialist for [place]
--- NOTE | 2022-03-29 13:49 | PM.SAN ---
Stroke Alert Activation ED Arrival Date: 03/29/22 ED Arrival Time: 09:55 ED Physican at Bedside: 09:55 Last Known Normal/at Baseline: < 1 hour ago Other Last Known Well Infomation: I was called stat for stroke team at 0933 and talked immediately with Sandra in the emergency department. The patient was 20 minutes out and did not arrive here until 955. I came immediately to the emergency department. I talked with EMS and was informed that the patient got up and walked out of the bedroom. As she was standing in the bedroom door she complained of feeling dizzy and she started to fall. Her caught her and eased her to the floor before he called for help. The patient was weak all over. EMS questioned whether she was weaker on one side. She could not talk. On arrival to the emergency department she was taken straight to CAT scan and I arrived just as the scan was completed. Dr. Brown and I reviewed her CAT scan which showed no focal findings (diffuse white matter disease, nonspecific) as well as her CT angiogram from several months ago. I confirmed with EMS that the patient was not on blood thinners. Her blood pressure was under good control, around 127/80. Her blood sugar was normal on tracer (127). Although the patient had a profoundly abnormal neurologic exam she was able to say her name and give permission for tPA. Dr. Brown and I performed NIH stroke scale together with the nurse and I recorded the results. Order was given for tPA at 1015. The bolus was given at 1025. I was witness for tPA waste of 44.4 and tPA bolus of 5.6. She had repeat CT angiogram that showed the following:? 1.? Moderate cervical and intracranial carotid artery atherosclerosis. No high-grade stenoses. No thrombus. 2.? Slightly small caliber RIGHT M1 segment but no thrombus. This is probably congenital or due to mild atherosclerosis. No [place] occlusion or thrombus. ? ? ? Dr. Ibrahim and I discussed that because the patient's stroke scale score was high and there was a question that this was probably posterior circulation that she should have repeat CT angiogram. Dr. Ibrahim later called to inform me that the patient left AGAINST MEDICAL ADVICE and that her neurologic exam was unremarkable before she left. Stroke Alert Activated by: [facility] Stroke Alert Activation Time: 09:33 Stroke MD @ Bedside Date: 03/29/22 Stroke MD @ Bedside Time: 09:33 NIH Stroke Scale Time: 09:10 NIH stroke score NIHSS: Level Of Consciousness - 1a: 2 Level Of Consciousness Questions - 1b: One Correct Level Of Consciousness Commands - 1c: One Correct Best Gaze - 2: Normal Visual [place] - 3: No Visual Loss Facial Palsy - 4: Minor Paralysis Motor Arm Right - 5: Drift Motor Arm Left - 5: No Drift Motor Leg Right - 6: Effort Against [place] Motor Leg Left - 6: Effort Against [place] Limb Ataxia - 7: Present In One Limb Sensory - 8: Normal Best Language - 9: No Aphasia Dysarthia - 10: Mild/Moderate Dysarthia Extinction And Inattention - 11: 0 Score: Total Score: 12 Stroke Alert Data/Treatment Time to CT of Head: 09:55 CT Results Time: 10:05 CT Impression: Diffuse white matter disease Stroke Risk Factors: hypertension tPA Started Time: tPA Started - Time: 10:25 tPA Admin Prior to Arrival: No Patient & Family Educated on: Treament Plan and tPA Risks/Benefits Standardized Stroke Orders Used: Yes Other Information: The patient recovered about an hour after treatment and pulled out her IV and left. At the time of this dictation I have had the leisure to review her old chart. I saw her back in 2013 for common migraine and dizziness with near syncope. At that time I documented that she had severe obstructive sleep apnea with desaturation and that she was noncompliant on CPAP. She had a very short attention span from multiple head injuries. She was just here with high blood pressure and some urinary problems and apparently was pretty confused during part of her stay as documented from her discharge summary dated 03/14/2022. Critical Care Time Critical Care Time: 30 - 74 mins Coding Level of Care Code Acute Director Of Instrumental Music for Loulou Borrero
--- NOTE | 2022-03-29 14:13 | PC.NURSE ---
1230 PT REMOVED HER OWN IV LINE AND IS CURRENTLY REFUSING CARE STATING I WANT TO GO HOME. IM DONE HERE. PT MADE AWARE OF RISKS AND HAS CHOSEN TO SIGN OUT AMA. CURRENTLY SHE IS WAITING ON HER RIDE. PT IS REPEATEDLY GETTING OUT OF BED AND WALKING AROUND ROOM. NURSE INFORMED HER OF THE INCREASED RISKS OF INJURY FROM FALL D/T TPA ADMINISTRATION, PT REFUSES TO REMAIN IN BED OR HAVE ANY CARE PROVIDED.
[2022-03-31 06:44] LABS: Glucose Point of Care 127 mg/dL (70-110)
== END 2022-03-29 14:27 | disposition left against medical advice (07) ==
PROVIDERS: Emergency Provider Family Medicine; PCP Family Medicine
DX: I63.9 Cerebral infarction, unspecified (principal); R27.0 Ataxia, unspecified; R47.9 Unspecified speech disturbances; R41.0 Disorientation, unspecified; R29.712 NIHSS score 12; I10 Essential (primary) hypertension; I25.10 Atherosclerotic heart disease of native coronary artery without angina pectoris; I65.29 Occlusion and stenosis of unspecified carotid artery; I71.4 Abdominal aortic aneurysm, without rupture; G47.33 Obstructive sleep apnea (adult) (pediatric); E78.5 Hyperlipidemia, unspecified; R90.82 White matter disease, unspecified; Z53.29 Procedure and treatment not carried out because of patient's decision for other reasons; Z79.899 Other long term (current) drug therapy; Z87.891 Personal history of nicotine dependence
CPT/HCPCS: 36416; 70450; 70496; 70498; 80053; 82962; 85025; 85610; 85730; 93005; 96374; 99284; J2997; Q9967

== ENCOUNTER 2022-05-17 21:57 | Emergency (ER) | payer MEDICARE, OTHER, SELFPAY ==
[2022-05-17 22:01] VITALS: BP 193/134; PULSE 89; RESP 20; TEMP 36.6; O2SAT 97; BMI 24.1
[2022-05-17 22:18] VITALS: BP 196/121; PULSE 73; RESP 18; O2SAT 96
--- NOTE | 2022-05-17 22:20 | ECG_ITS ---
[facility] Test Date: 2022-05-17 Pat Name: Rosie Martinez Department: Room: Gender: Female Sr Technical Sales Consultant: : 1950 Requested By: David Painter Order Number: [id number] Carlos MD: Nikki Doe M.D. Measurements Intervals [place] Rate: 75 P: 81 [place]: 143 QRS: 53 QRSD: 79 T: 59 QT: 380 QTc: 427 Interpretive Statements SINUS RHYTHM NONSPECIFIC T-WAVE ABNORMALITY Compared to ECG 03/29/2022 10:21:02 Sinus bradycardia no longer present T-wave abnormality still present Electronically Signed On 05-19-2022 13:05:03 CDT by Nikki Doe M.D. [email or web address] liver[facility] [id number]
--- NOTE | 2022-05-17 22:20 | CTR_ITS ---
PROCEDURE INFORMATION: Exam: CT Head Without Contrast Exam date and time: 05/17/2022 10:46 PM Age: 71 years old Clinical indication: Injury or trauma; Fall; Blunt trauma (contusions or hematomas); Altered mental status/memory loss; Additional info: Confusion, fall TECHNIQUE: Imaging protocol: Computed tomography of the head without contrast. Radiation optimization: All CT scans at this facility use at least one of these dose optimization techniques: automated exposure control; mA and/or kV adjustment per patient size (includes targeted exams where dose is matched to clinical indication); or iterative reconstruction. COMPARISON: CT head wo con* [id number] 03/29/2022 9:59 AM RADIATION DOSE METRICS: Total DLP (mGy-cm): 838.08 FINDINGS: Brain: Large amount diffuse white matter disease likely reflecting chronic microvascular ischemic changes. Cerebral ventricles: No ventriculomegaly. Paranasal sinuses: Visualized sinuses are unremarkable. No fluid levels. Mastoid air cells: Visualized mastoid air cells are well aerated. Bones/joints: Unremarkable. No acute fracture. Soft tissues: Unremarkable. CT/CT head wo con* [id number] IMPRESSION: Negative for intracranial hemorrhage or mass effect.
--- NOTE | 2022-05-17 22:21 | XRR_ITS ---
PROCEDURE INFORMATION: Exam: XR Chest Exam date and time: 05/17/2022 10:38 PM Age: 71 years old Clinical indication: Injury or trauma; Fall; Blunt trauma (contusions or hematomas); Additional info: Weakness, fall TECHNIQUE: Imaging protocol: Radiologic exam of the chest. Views: 1 view. COMPARISON: CR XR chest 1V portable [id number] 03/07/2022 6:25 AM FINDINGS: Lungs: Unremarkable. No consolidation. Pleural spaces: Unremarkable. No pleural effusion. No pneumothorax. Heart/Mediastinum: Unremarkable. No cardiomegaly. Bones/joints: Unremarkable. XR/XR chest 1V portable [id number] IMPRESSION: No acute findings.
--- NOTE | 2022-05-17 22:22 | W.ED.FALL ---
HPI - Fall General: Chief Complaint: Fall Stated Complaint: BLOOD IN URINE/FALL Time Seen by Provider: 05/17/22 22:03 History of Present Illness: 71-year-old female comes in today with complaints of headache and fall. Patient was given tPA 2 months ago for a probable occlusion stroke. Patient states today she felt weak and passed out waking up after she fell. Patient then this evening had a continued headache and noticed some blood in her urine and thought she needed to be checked out in the ER. Patient denies any pain in the back or in the hips. Patient takes medication for blood pressure. 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 Hazel, 2014 S/P cataract extraction and insertion of intraocular lens bilateral S/P cervical spinal fusion ACDFF Dr. Dawn 12/07/2015 S/P right coronary artery (RCA) stent placement (~05/2019) Family History Mother CAD (coronary artery disease) Father No problems noted. Other Cancer Rheumatoid arthritis Denies family history of Chronic kidney disease (CKD) Systemic lupus erythematosus (SLE) in adult Lung disease Hypertension Social History Smoking and tobacco status: former smoker Alcohol intake: never Marital status: Current occupational status: retired History of recent travel: No (12/10/19) Physical Exam Const: COMMON NORMALS: alert HENMT: COMMON NORMALS: atraumatic HEAD & SCALP: atraumatic MOUTH: Normal oral and palatal mucosa present Neck/C-Spine: COMMON NORMALS: full ROM Chest: COMMONS NORMALS: normal inspection of the chest and normal palpation of the breasts BREAST/AXILLA PALPATION: Yes normal palpation of the breasts Resp: COMMON NORMALS: normal respiratory effort and clear to auscultation bilaterally AUSCULTATION: clear to auscultation bilaterally Cardio: COMMON NORMALS: regular rate and regular rhythm RATE: regular rate RHYTHM: regular rhythm Back/Pelvis: COMMON NORMALS: thoracic and lumbar spine normal to inspection Extremity: COMMON NORMALS: normal to inspection Neuro: SENSORIUM/ORIENTATION: Yes alert Skin: COMMON NORMALS: no rashes or lesions noted GENERAL SKIN EXAM: no rashes or lesions noted Course Vital Signs: Vital signs: Vital Signs Temperature 97.9 F 05/17/22 22:01 Pulse Rate 67 05/17/22 23:09 Respiratory Rate 14 05/17/22 23:09 Blood Pressure 220/90 05/17/22 23:54 Pulse Oximetry 96 05/17/22 23:09 MDM - Fall Medical Decision Making 71-year-old female comes in today for complaints of blood in her urine. Patient reported this morning she had passed out and fallen. Patient recovered and seemed to be doing well until this evening when she noticed she had a headache and then also noticed some blood in her urine. Patient came in by EMS. On exam abdomen was soft nontender. Skin was warm and dry. Patient was alert and responding appropriately to questions. Blood pressure was elevated at 220 systolic. Differential diagnosis includes but not limited to intracranial bleeding, pneumonia, fracture of the pelvis, UTI. CT of the head did not indicate any intracranial bleeding. CBC was unremarkable. CMP did note a potassium of 3.3 and creatinine of 1.1. Urinalysis had gross amount of blood. X-ray of the chest was unremarkable. X-ray of the pelvis noted a right ureteral stent. I believe patient probably has blood in her urine due to the stent. We will go ahead and cover patient with cephalexin just to make sure there is no secondary infection as this will be cultured. Recommend patient follow-up with Dr. Michele or her urologist regarding her stent and the hematuria. Patient should also follow-up with her primary care for recheck of her blood pressure although I do not think patient is taking her medications as directed. Lab Data : 05/17/22 23:35 05/17/22 22:[address] 05/17/22 22:20 IMPRESSION: Negative for intracranial hemorrhage or mass effect. Chest X-Ray 05/17/22 22:21 IMPRESSION: No acute findings. Pelvis X-Ray 05/17/22 22:23 IMPRESSION: 1. Negative for fracture or dislocation. 2. Right ureteral stent. 3. Lumbar spine surgical hardware. Laboratory Results WBC 9.2 10^3/uL (4.0-10.0) 05/17/22 23:35 Corrected WBC Cancelled 05/17/22 22:34 RBC 4.88 10^6/uL (4.1-5.3) 05/17/22 23:35 Hgb 13.3 g/dL (11.5-15.3) 05/17/22 23:35 Hct 39.9 % (37.0-47.0) 05/17/22 23:35 MCV 81.8 fl (81-99) 05/17/22 23:35 MCH 27.3 pg (28.0-34.0) L 05/17/22 23:35 MCHC 33.3 g/dL (30.0-36.0) 05/17/22 23:35 RDW 14.6 % (12.1-15.1) 05/17/22 23:35 Plt Count 256 10^3/cmm (130-400) 05/17/22 23:35 MPV 10.7 fL (7.4-10.4) H 05/17/22 23:35 Gran % Cancelled 05/17/22 22:34 Neut % (Auto) 74.0 % 05/17/22 23:35 Lymph % (Auto) 16.5 % 05/17/22 23:35 [place] % (Auto) 8.4 % 05/17/22 23:35 Eos % (Auto) 0.2 % 05/17/22 23:35 Baso % (Auto) 0.7 % 05/17/22 23:35 Neut # (Auto) 6.79 10^3/uL (1.8-7.7) 05/17/22 23:35 Lymph # (Auto) 1.5 10^3/uL (0.8-4.8) 05/17/22 23:35 [place] # (Auto) 0.8 10^3/uL (0.2-0.9) 05/17/22 23:35 Eos # (Auto) 0.0 10^3/uL (0.0-0.8) 05/17/22 23:35 Baso # (Auto) 0.1 10^3/uL (0.0-0.1) 05/17/22 23:35 Absolute Gran (auto) Cancelled 05/17/22 22:34 Nucleated RBC % (auto) 0 % 05/17/22 23:35 Nucleated RBCs # 0.0 /100WBC 05/17/22 23:35 Sodium 138 mmol/L (136-145) 05/17/22 22:34 Potassium 3.3 mmol/L (3.5-5.1) L 05/17/22 22:34 Chloride 101 mmol/L (98-107) 05/17/22 22:34 Carbon Dioxide 23 mmol/L (22-29) 05/17/22 22:34 Anion Gap 17.3 (5-19) 05/17/22 22:34 BUN 15 mg/dL (8-23) 05/17/22 22:34 Creatinine 1.1 mg/dL (0.5-0.9) H 05/17/22 22:34 GFR Calculation Not Reportable 05/17/22 22:34 Glucose 105 mg/dL (65-115) 05/17/22 22:34 Calculated Osmolality 287 mOsm/kg (285-295) 05/17/22 22:34 Calcium 9.6 mg/dL (8.5-10.5) 05/17/22 22:34 Total Bilirubin 0.6 mg/dL (0.15-1.2) 05/17/22 22:34 AST 19 U/L (0-32) 05/17/22 22:34 ALT 14 U/L (0-33) 05/17/22 22:34 Alkaline Phosphatase 148 IU/L (35-105) H 05/17/22 22:34 Troponin T Baseline 21 ng/L (0-10) H 05/17/22 22:34 Total Protein 6.5 g/dL (6.6-8.7) L 05/17/22 22:34 Albumin 3.7 g/dL (3.5-5.2) 05/17/22 22:34 Globulin 2.8 g/dL (1.3-4.6) 05/17/22 22:34 Urine Color [place] (Yellow) 05/17/22 23:40 Urine Appearance Cloudy (CLEAR) 05/17/22 23:40 Urine pH 6 (5-7) 05/17/22 23:40 Ur Specific [place] 1.015 (1.005-1.030) 05/17/22 23:40 Urine Protein 3+ (Negative) H 05/17/22 23:40 Urine Glucose (UA) Norm (Normal) 05/17/22 23:40 Urine Ketones Negative (Negative) 05/17/22 23:40 Urine Blood 3+ (Negative) H 05/17/22 23:40 Urine Nitrate Negative (Negative) 05/17/22 23:40 Urine Bilirubin Neg (Negative) 05/17/22 23:40 Urine Urobilinogen Norm mg/dL (Negative) 05/17/22 23:40 Ur Leukocyte Esterase 2+ (Negative) H 05/17/22 23:40 Urine RBC Too numerous to cnt /hpf (0-2) H 05/17/22 23:40 Urine WBC 5-10 /hpf (0-5) H 05/17/22 23:40 Ur Squamous Epith Cells 0-4 /hpf (0-5) H 05/17/22 23:40 Amorphous Sediment Not Reportable 05/17/22 23:40 Urine Bacteria Trace /hpf (NONE) 05/17/22 23:40 Discharge Plan Discharge Patient Disposition: Home Clinical Impression: Hematuria Qualifiers: Hematuria type: gross Qualified Code(s): R31.0 - Gross hematuria Fall Qualifiers: Encounter type: initial encounter Qualified Code(s): W19.XXXA - Unspecified fall, initial encounter Condition: Stable Prescriptions: New cephalexin 500 mg capsule 500 mg PO BID 7 Days Qty: 14 0RF No Action carvedilol 25 mg Tablet 25 mg PO BID@0900,2100 Qty: 180 0RF clonidine HCl 0.1 mg Tablet 0.1 mg PO BID Qty: 180 0RF isosorbide mononitrate 30 mg Tablet Extended Release 24 Hr 15 mg PO DAILY Qty: 90 0RF aspirin 81 mg Tablet,Delayed Release (Dr/Ec) 81 mg PO DAILY Qty: 90 0RF amlodipine 10 mg Tablet 10 mg PO DAILY Qty: 90 0RF atorvastatin 40 mg tablet 40 mg PO QPM Qty: 90 0RF clopidogrel 75 mg tablet 75 mg PO DAILY 0RF nitroglycerin [Nitrostat] 0.4 mg Tablet, Sublingual 0.4 mg SUBLINGUAL Q5M PRN (Reason: Chest Pain) 0RF Rx Instructions: do not exceed 3 doses per episode Discharge Orders: Discharge ED (Routine); Ordered 05/18/22 Ordered By: David Hood Referrals: Silvia Peng MD [Primary Care Provider] - Discharge Diet: Usual diet Discharge Activity: Increase activity as tolerated Patient Instructions: Hematuria (ED) Activity Restrictions/Additional Instructions: Patient needs to follow-up with urologist office regarding hematuria. Patient has a indwelling stent which is probably contributing to her blood in the urine. I have covered her with some antibiotic in case this is infectious origin. Most likely is more due to her stent. Patient needs to take her blood pressure medication as prescribed. Patient needs to follow-up with primary care in 3 to 4 days for recheck of blood pressure. Return to ER for worsening symptoms or new concerns. Coding Level of Care Code ED Oyster Floater for Loulou Fwkenneth Exam Comprehensive
--- NOTE | 2022-05-17 22:23 | XRR_ITS ---
PROCEDURE INFORMATION: Exam: XR Pelvis Exam date and time: 05/17/2022 10:37 PM Age: 71 years old Clinical indication: Injury or trauma; Fall; Blunt trauma (contusions or hematomas); Bilateral; Pelvic region TECHNIQUE: Imaging protocol: Radiologic exam of the pelvis. Views: 1 or 2 view. COMPARISON: CR XR hip LT 2-3V wo/w pel* [id number] 10/31/2021 7:47 PM FINDINGS: Tubes, catheters and devices: Right ureteral stent. Bones/joints: Lumbar spine surgical hardware. Soft tissues: Unremarkable. XR/XR pelvis 1-2V* [id number] IMPRESSION: 1. Negative for fracture or dislocation. 2. Right ureteral stent. 3. Lumbar spine surgical hardware.
[2022-05-17 22:54] VITALS: BP 242/110
[2022-05-17] MEDS: acetaminophen 325 mg Tablet 650 MG PO (23:00)
[2022-05-17 23:03] LABS: Alanine Aminotransferase 14 U/L (0-33); Albumin Level 3.7 g/dL (3.5-5.2); Alkaline Phosphatase 148 IU/L (35-105); Anion Gap 17.3 (5-19); Aspartate Amino Transferase 19 U/L (0-32); Blood Urea Nitrogen 15 mg/dL (8-23); Calcium 9.6 mg/dL (8.5-10.5); Carbon Dioxide 23 mmol/L (22-29); Chloride 101 mmol/L (98-107); Globulin 2.8 g/dL (1.3-4.6); Glucose 105 mg/dL (65-115); Osmolality Calculated 287 mOsm/kg (285-295); Potassium 3.3 mmol/L (3.5-5.1); Sodium 138 mmol/L (136-145); Total Bilirubin 0.6 mg/dL (0.15-1.2); Total Protein 6.5 g/dL (6.6-8.7); Troponin(5th) Baseline 21 ng/L (0-10)
[2022-05-17] MEDS: labetalol 5 mg/mL SDV 20mL 10 MG IVP ×2 (23:05→23:37)
[2022-05-17 23:09] VITALS: BP 260/111; PULSE 67; RESP 14; O2SAT 96
[2022-05-17 23:40] LABS: Basophils # 0.1 10^3/uL (0.0-0.1); Basophils % 0.7 %; Eosinophils % 0.2 %; Hematocrit 39.9 % (37.0-47.0); Hemoglobin 13.3 g/dL (11.5-15.3); Lymphocytes # 1.5 10^3/uL (0.8-4.8); Lymphocytes % 16.5 %; Mean Corpuscular HGB Conc 33.3 g/dL (30.0-36.0); Mean Corpuscular Hemoglobin 27.3 pg (28.0-34.0); Mean Corpuscular Volume 81.8 fl (81-99); Mean Platelet Volume 10.7 fL (7.4-10.4); Monocytes # 0.8 10^3/uL (0.2-0.9); Monocytes % 8.4 %; Neutrophils # 6.79 10^3/uL (1.8-7.7); Nucleated Red Blood Cells % 0 %; Platelet Count 256 10^3/cmm (130-400); Red Blood Count 4.88 10^6/uL (4.1-5.3); Red Cell Distribution Width 14.6 % (12.1-15.1); White Blood Count 9.2 10^3/uL (4.0-10.0)
[2022-05-17 23:54] VITALS: BP 220/90
[2022-05-18] MEDS: enalaprilat 1.25 mg/mL Inj IVP (00:01)
[2022-05-18] MEDS: nitroglycerin 0.4 mg sublingual Tablet SUBLINGUAL (00:01)
[2022-05-18] MEDS: amlodipine 10 mg Tablet PO (00:01)
[2022-05-18 00:12] LABS: Bilirubin Urine Neg (Negative); Blood Urine 3+ (Negative); Glucose Urine UA Norm (Normal); Ketones Urine Negative (Negative); Nitrate Urine Negative (Negative); Protein Urine 3+ (Negative); Specific Gravity, Urine 1.015 (1.005-1.030); Urine Appearance Cloudy (CLEAR); Urine Color Amber (Yellow); pH Urine 6 (5-7)
[2022-05-18 00:13] LABS: Add Urine Microscopic? YES; Leukocyte Esterase Urine 2+ (Negative); Urobilinogen Urine Norm (Negative)
[2022-05-18 00:18] LABS: Add Urine Culture? Yes; Bacteria Urine TRACE /hpf; RBC Urine TOO NUMEROUS TO CNT /hpf (0-2); Squamous Epithelial Cell Urine 0-4 /hpf (0-5)
--- NOTE | 2022-05-18 00:20 | ECG_ITS ---
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 Measurements Intervals [place] Rate: 64 P: 83 AL: 151 QRS: 59 QRSD: 86 T: 55 QT: 464 QTc: 482 Interpretive Statements SINUS RHYTHM ST DEVIATION AND MODERATE T-WAVE ABNORMALITY, CONSIDER ANTEROLATERAL ISCHEMIA [-0.1+ mV T-WAVE IN V3-V6] Compared to ECG 05/17/2022 21:14:31 Possible ischemia now present T-wave abnormality still present Electronically Signed On 05-19-2022 13:12:16 CDT by Nikki Doe M.D. [email or web address]
[2022-05-18 00:30] VITALS: BP 162/69; PULSE 60; RESP 16; O2SAT 96
[2022-05-18] MEDS: cephALEXin 500 mg Capsule PO (00:53)
[2022-05-18 01:00] VITALS: BP 158/79; PULSE 64; RESP 14; O2SAT 95
[2022-05-18 02:10] VITALS: BP 158/79; PULSE 64; RESP 14; O2SAT 95
--- NOTE | 2022-05-19 08:08 | DCPLANNER ---
Addendum entered by Trisha Glover 06/23/22 15:28: Patient had a follow up appointment scheduled for 05.28.[address] Michele at urology - patient did attend appointment. Original Note: medical claims manager had message to schedule a follow up appointment for patient with urology. medical claims manager sent patients information to the front office staff at urology. Patients information will be printed and reviewed. Clinic will call patient with appointment information.
== END 2022-05-18 02:12 | disposition home or self-care (01) ==
PROVIDERS: Emergency Provider Nurse Practitioner Family; PCP Family Medicine
DX: R31.0 Gross hematuria (principal); R51.9 Headache, unspecified; W19.XXXA Unspecified fall, initial encounter
CPT/HCPCS: 51701; 70450; 71045; 72170; 80053; 81001; 81003; 84484; 85025; 87086; 93005; 96374; 96375; 99285; J3490

== ENCOUNTER 2022-05-28 13:49 | Outpatient (CLI) | payer MEDICARE, OTHER, SELFPAY ==
--- NOTE | 2022-05-28 14:02 | XR_ITS ---
WS: [id number] XR KUB [id number] REASON FOR EXAM: STONES FINDINGS: Right ureteral stent is in place. The stent appears properly positioned. Possible small right renal calculi. No left renal calculi or ureteral or bladder calculi are identified. Abdominal aortic aneurysm. Surgical hardware lower lumbar spine. XR/XR KUB [id number] IMPRESSION: Right ureteral stent which appears properly positioned.
== END 2022-05-28 13:50 | disposition home or self-care (01) ==
PROVIDERS: PCP Family Medicine; Visit Provider Urology
DX: N13.5 Crossing vessel and stricture of ureter without hydronephrosis (principal); R31.0 Gross hematuria
CPT/HCPCS: 74018; 99213

== ENCOUNTER 2022-06-01 20:45 | Emergency (ER) | payer MEDICARE, OTHER, SELFPAY ==
[2022-06-01 20:47] VITALS: PULSE 73; RESP 16; TEMP 37.1; O2SAT 96; BMI 24.1
--- NOTE | 2022-06-01 20:49 | ED_ITS ---
Documented by User: Hank Garcia MD 06/11/22 21:29 HPI - Fall General: Chief Complaint: Fall Stated Complaint: fall on blood thinners Time Seen by Provider: 06/01/22 20:45 History of Present Illness: Ms. Martinez is a 71-year-old lady with history of hypertension, hyperlipidemia, history of rheumatoid arthritis presenting to the emergency department due to fall. She reports falling from a tree and is unsure exactly of how she landed. She is uncertain of loss of consciousness but currently complains of back pain and head pain. She is on Plavix. Otherwise denies specific precipitating events or symptoms including denying lightheadedness, dizziness, chest pain, shortness of breath. She has otherwise been at her baseline health. No other specific changes in health, exacerbating, or alleviating factors identified. Onset (ago): minute(s) Fall from: from height (distance) Loss of consciousness: Unsure Prolonged down time: unclear Symptoms prior to fall: none Location of injury: head and back Severity: moderate Quality: aching Review of Systems General: Reports: 10 or more systems reviewed and unremarkable except in HPI and below PFSH ED PFSH: Medical History Abdominal aortic aneurysm (AAA) 3.0 cm to 5.0 cm in diameter in female Abnormal EKG 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 by CTA Jan 2018 Arnold-Chiari malformation, type I Atrophy of left kidney Coronary artery disease Esophageal thickening incidental finding on CT 03/2021 High risk medication use Hyperlipidemia Hypertension, essential Obstructive sleep apnea Peripheral vascular disease multiple vessels Polypharmacy Primary osteoarthritis of knees, bilateral Seropositive rheumatoid arthritis of multiple joints Thyroid nodule incidental indeterminant finding on CT 03/2021 Surgical History H/O hysterectomy with oophorectomy History of appendectomy History of total right knee replacement (TKR) S/P carpal tunnel release right, Dr. Hazel, 2013 S/P cataract extraction and insertion of intraocular lens bilateral S/P cervical spinal fusion ACDFF Dr. Dawn 12/07/2015 S/P right coronary artery (RCA) stent placement (~05/2019) Family History Mother CAD (coronary artery disease) Father No problems noted. Other Cancer Rheumatoid arthritis Denies family history of Chronic kidney disease (CKD) Systemic lupus erythematosus (SLE) in adult Lung disease Hypertension Social History Smoking and tobacco status: former smoker Alcohol intake: never Marital status: Current occupational status: retired History of recent travel: No (12/10/19) Physical Exam Const: COMMON NORMALS: alert GENERAL APPEARANCE: cooperative and well developed HENMT: COMMON NORMALS: normocephalic and atraumatic HEAD & SCALP: normocephalic and atraumatic THROAT: posterior oropharynx normal OTHER: No castillo signs or raccoon eyes, no rishi or rhinorrhea, jaw alignment normal, dentition appears intact, no septal hematoma. No obvious bony step-offs or deformities. Eye: COMMON NORMALS: conjunctivae normal CONJUNCTIVA: Yes conjunctivae normal SCLERA: sclerae normal Neck/C-Spine: COMMON NORMALS: supple GENERAL: Yes trachea midline Resp: COMMON NORMALS: normal respiratory effort and clear to auscultation bilaterally EFFORT & INSPECTION: Yes able to speak in complete sentences AUSCULTATION: clear to auscultation bilaterally Cardio: COMMON NORMALS: regular rate and regular rhythm RATE: regular rate RHYTHM: regular rhythm GI: COMMON NORMALS: Soft to palpation PALPATION: Yes Soft to palpation, Yes Tenderness to palpation present (GI), No Guarding due to palpation present (GI) and No Rigid due to palpation PERCUSSION: normal to percussion Back/Pelvis: THORACIC SPINE/UPPER BACK: Yes normal to inspection LUMBAR SPINE/LOWER BACK: Yes lumbar spinal tenderness Extremity: GENERAL: Yes normal exam except as noted and No edema Neuro: COMMON NORMALS: moves all extremities SENSORIUM/ORIENTATION: Yes alert Course ED course: - Patient was seen and evaluated by me at bedside - Patient placed on cardiac monitors, vital signs obtained - Initial evaluation notable for exam as above. Some degree of uncertainty regarding events surrounding fall. EKG reviewed with nonspecific ST segment abnormalities, no STEMI. - Imaging notable for no acute traumatic injury to the head or neck. CT chest abdomen pelvis without traumatic injury, there is again noted arterial aneurysms with 6-month reevaluation recommended. - Prior to completion of imaging reads patient ambulated from the emergency department however was found in the parking lot and brought back to the ED room - Upon reassessment patient it has become quite apparent that she is confused. I am unsure of the patient's baseline as she did have mild confusion when specifically questioned regarding loss of consciousness earlier however she appeared to answer reasonably to the rest of history. The patient is unsure of the year and unable to answer what town we are in. She believes that it is winter out and is unsure of the president. She is somewhat reluctant to participate in remainder of Mini-Mental status exam which limits interpretation however I believe that some degree is due to inability to perform certain tasks. - I attempted to contact the patient's listed in chart however was unable to reach him. - Given mental status labs ordered. - Shortly after ordering labs the patient's came to bedside in the emergency department. I discussed the patient's baseline mental status with him and he feels that the patient is at her baseline mental status. Additionally they live together and he feels comfortable watching her closely. - Patient care handed off to Dr. Wade pending completion of laboratory studies to ensure no other etiology of confusion. Vital Signs: Vital signs: Vital Signs Temperature 98.7 F 06/01/22 20:47 Pulse Rate 70 06/01/22 23:55 Respiratory Rate 18 06/02/22 03:20 Blood Pressure 198/86 06/02/22 03:20 Pulse Oximetry 93 06/02/22 03:20 MDM - Fall Medical Decision Making 71-year-old lady on Plavix presenting due to fall from low height injury complaining of head and back pain. Negative CT scans for acute traumatic injury. Patient subsequently more reliably assessed as confused and further evaluation ordered with handoff of patient care to Dr. Wade pending completion of ED evaluation. Medical Records I reviewed the patient's medical records. Lab Data I reviewed the patient's lab results. : 06/01/22 22:52 06/01/22 22:52 Radiology Impressions Cervical Spine CT 06/01/22 20:57 IMPRESSION: 1. No acute fracture demonstrated. 2. Multilevel spondylosis, diffuse cervical arthrosis and degenerative changes as described with previous C5-C6 ACDF. Chest/Abdomen/Pelvis CT 06/01/22 20:57 IMPRESSION: No sign of significant traumatic injury in the thorax. IMPRESSION: 1. No sign of significant traumatic injury in the abdomen or pelvis. 2. Diffuse aneurysmal dilation of the abdominal aorta measuring up to 4.6 cm. Follow-up imaging in 6 months is recommended. In addition to planning follow-up imaging, one should also consider surgical or endovascular referral. 3. Incidental findings above. COMMENTS: Consistent with the [employer]'s Incidental Findings Committee white paper (J Am Missy Radiol 2018): Any incidental renal lesion less than 1 cm or classified as too small to characterize, or any incidental cystic renal lesion characterized as simple-appearing, is likely benign. No follow-up imaging is recommended for these lesions per consensus recommendations based on imaging criteria. Head CT 06/01/22 20:57 IMPRESSION: Diffuse atrophy and chronic/remote ischemic changes without evidence of superimposed acute infarct, hemorrhage, mass-effect or acute intracranial injury. Laboratory Results WBC 6.6 10^3/uL (4.0-10.0) 06/01/22 22:52 RBC 4.76 10^6/uL (4.1-5.3) 06/01/22 22:52 Hgb 13.1 g/dL (11.5-15.3) 06/01/22 22:52 Hct 38.9 % (37.0-47.0) 06/01/22 22:52 MCV 81.7 fl (81-99) 06/01/22 22:52 MCH 27.5 pg (28.0-34.0) L 06/01/22 22:52 MCHC 33.7 g/dL (30.0-36.0) 06/01/22 22:52 RDW 14.3 % (12.1-15.1) 06/01/22 22:52 Plt Count 262 10^3/cmm (130-400) 06/01/22 22:52 MPV 10.6 fL (7.4-10.4) H 06/01/22 22:52 Neut % (Auto) 71.1 % 06/01/22 22:52 Lymph % (Auto) 18.6 % 06/01/22 22:52 [place] % (Auto) 8.8 % 06/01/22 22:52 Eos % (Auto) 0.3 % 06/01/22 22:52 Baso % (Auto) 0.9 % 06/01/22 22:52 Neut # (Auto) 4.67 10^3/uL (1.8-7.7) 06/01/22 22:52 Lymph # (Auto) 1.2 10^3/uL (0.8-4.8) 06/01/22 22:52 [place] # (Auto) 0.6 10^3/uL (0.2-0.9) 06/01/22 22:52 Eos # (Auto) 0.0 10^3/uL (0.0-0.8) 06/01/22 22:52 Baso # (Auto) 0.1 10^3/uL (0.0-0.1) 06/01/22 22:52 Nucleated RBC % (auto) 0 % 06/01/22 22:52 Nucleated RBCs # 0.0 /100WBC 06/01/22 22:52 Sodium 139 mmol/L (136-145) 06/01/22 22:52 Potassium 3.3 mmol/L (3.5-5.1) L 06/01/22 22:52 Chloride 103 mmol/L (98-107) 06/01/22 22:52 Carbon Dioxide 24 mmol/L (22-29) 06/01/22 22:52 Anion Gap 15.3 (5-19) 06/01/22 22:52 BUN 14 mg/dL (8-23) 06/01/22 22:52 Creatinine 1.6 mg/dL (0.5-0.9) H 06/01/22 22:52 GFR Calculation Not Reportable 06/01/22 22:52 Glucose 100 mg/dL (65-115) 06/01/22 22:52 POC Glucose 91 mg/dL (70-110) 06/02/22 00:30 Calculated Osmolality 289 mOsm/kg (285-295) 06/01/22 22:52 Calcium 9.6 mg/dL (8.5-10.5) 06/01/22 22:52 Total Bilirubin 0.5 mg/dL (0.15-1.2) 06/01/22 22:52 AST 21 U/L (0-32) 06/01/22 22:52 ALT 15 U/L (0-33) 06/01/22 22:52 Alkaline Phosphatase 139 IU/L (35-105) H 06/01/22 22:52 Total Protein 6.5 g/dL (6.6-8.7) L 06/01/22 22:52 Albumin 3.9 g/dL (3.5-5.2) 06/01/22 22:52 Globulin 2.6 g/dL (1.3-4.6) 06/01/22 22:52 TSH 1.32 uIU/mL (0.27-4.20) 06/01/22 22:52 Urine Color Dark yellow (Yellow) 06/02/22 00:53 Urine Appearance Cloudy (CLEAR) 06/02/22 00:53 Urine pH 7 (5-7) 06/02/22 00:53 Ur Specific [place] 1.010 (1.005-1.030) 06/02/22 00:53 Urine Protein 3+ (Negative) H 06/02/22 00:53 Urine Glucose (UA) Norm (Normal) 06/02/22 00:53 Urine Ketones 1+ (Negative) H 06/02/22 00:53 Urine Blood 3+ (Negative) H 06/02/22 00:53 Urine Nitrate Negative (Negative) 06/02/22 00:53 Urine Bilirubin Neg (Negative) 06/02/22 00:53 Urine Urobilinogen 1 mg/dL (Negative) H 06/02/22 00:53 Ur Leukocyte Esterase 2+ (Negative) H 06/02/22 00:53 Urine RBC Too numerous to cnt /hpf (0-2) H 06/02/22 00:53 Urine WBC 15-25 /hpf (0-5) H 06/02/22 00:53 Ur Squamous Epith Cells 5-10 /hpf (0-5) H 06/02/22 00:53 Amorphous Sediment Not Reportable 06/02/22 00:53 Urine Bacteria Trace /hpf (NONE) 06/02/22 00:53 Urine Mucus 1+ /hpf 06/02/22 00:53 Salicylates < 0.3 mg/dL (3-10) L 06/01/22 22:52 Urine Opiates Screen Negative ng/mL (Negative) 06/02/22 00:53 Acetaminophen < 5.0 ug/mL (10-30) L 06/01/22 22:52 Ur Barbiturates Screen Negative ng/mL (Negative) 06/02/22 00:53 Ur Phencyclidine Scrn Negative ng/mL (Negative) 06/02/22 00:53 Ur Amphetamines Screen Negative ng/mL (Negative) 06/02/22 00:53 U Benzodiazepines Scrn Negative ng/mL (Negative) 06/02/22 00:53 Urine Cocaine Screen Negative ng/mL (Negative) 06/02/22 00:53 U Marijuana (THC) Screen Negative ng/mL (Negative) 06/02/22 00:53 Ethyl Alcohol < 10 mg/dL (0-10) 06/01/22 22:52 SARS-CoV-2 Ag (Rapid) Negative (Negative) 06/01/22 22:50 Discharge Plan Discharge Patient Disposition: Home Clinical Impression: Fall, Abdominal aortic aneurysm (AAA) 3.0 cm to 5.0 cm in diameter in female, Aneurysm of right common iliac artery, Aneurysm artery, renal, Confusion with nonfocal neurological examination Condition: Stable Prescriptions: No Action carvedilol 25 mg Tablet 25 mg PO BID@0900,2100 Qty: 180 0RF clonidine HCl 0.1 mg Tablet 0.1 mg PO BID Qty: 180 0RF isosorbide mononitrate 30 mg Tablet Extended Release 24 Hr 15 mg PO DAILY Qty: 90 0RF aspirin 81 mg Tablet,Delayed Release (Dr/Ec) 81 mg PO DAILY Qty: 90 0RF amlodipine 10 mg Tablet 10 mg PO DAILY Qty: 90 0RF atorvastatin 40 mg tablet 40 mg PO QPM Qty: 90 0RF clopidogrel 75 mg tablet 75 mg PO DAILY 0RF nitroglycerin [Nitrostat] 0.4 mg Tablet, Sublingual 0.4 mg SUBLINGUAL Q5M PRN (Reason: Chest Pain) 0RF Rx Instructions: do not exceed 3 doses per episode Discharge Orders: Discharge ED (Routine); Ordered 06/02/22 Ordered By: Ricky Wade Referrals: Silvia Peng MD [Primary Care Provider] - Discharge Diet: Usual diet Discharge Activity: Increase activity as tolerated Patient Instructions: Abdominal Aortic Aneurysm, Fall Prevention for Older Adults (ED) Activity Restrictions/Additional Instructions: Thank you for visiting the emergency department. You were seen and evaluated for fall. The exact cause of your fall and circumstances is unclear. No acute traumatic injury was identified on CT imaging. For pain related to symptoms you may use [id number] medications however please do not exceed the daily recommended dosage and please keep in mind that many namebrand medications contain the same active ingredients. You have age-related changes on your CT scan of your head and degenerative cervical spine changes. Additionally you continue to have diffuse aneurysmal di lation of the abdominal aorta, and also aneurysm of the right common femoral artery and right renal artery. Recommendation is for follow-up imaging in 6 months. Additionally you should follow-up with vascular surgery. Please follow-up with your primary care provider. Please return to the emergency department for anything that you are concerned about a feel needs emergency department evaluation. Coding Level of Care Code ED Acid Concentrator for Chg Fwd Exam Comprehensive Documented by User: Ricky Wade, 06/02/22 01:50 HPI - Fall General: Chief Complaint: Fall Stated Complaint: fall on blood thinners Time Seen by Provider: 06/01/22 20:45 PFSH ED PFSH: Medical History Abdominal aortic aneurysm (AAA) 3.0 cm to 5.0 cm in diameter in female Abnormal EKG 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 by CTA Jan 2018 Arnold-Chiari malformation, type I Atrophy of left kidney Coronary artery disease Esophageal thickening incidental finding on CT 03/2021 High risk medication use Hyperlipidemia Hypertension, essential Obstructive sleep apnea Peripheral vascular disease multiple vessels Polypharmacy Primary osteoarthritis of knees, bilateral Seropositive rheumatoid arthritis of multiple joints Thyroid nodule incidental indeterminant finding on CT 03/2021 Surgical History H/O hysterectomy with oophorectomy History of appendectomy History of total right knee replacement (TKR) S/P carpal tunnel release right, Dr. Hazel, 2013 S/P cataract extraction and insertion of intraocular lens bilateral S/P cervical spinal fusion ACDFF Dr. Dawn 12/07/2015 S/P right coronary artery (RCA) stent placement (~05/2019) Family History Mother CAD (coronary artery disease) Father No problems noted. Other Cancer Rheumatoid arthritis Denies family history of Chronic kidney disease (CKD) Systemic lupus erythematosus (SLE) in adult Lung disease Hypertension Social History Smoking and tobacco status: former smoker Alcohol intake: never Marital status: Current occupational status: retired History of recent travel: No (12/10/19) Course Vital Signs: Vital signs: Vital Signs Temperature 98.7 F 06/01/22 20:47 Pulse Rate 70 06/01/22 23:55 Respiratory Rate 18 06/02/22 03:20 Blood Pressure 198/86 06/02/22 03:20 Pulse Oximetry 93 06/02/22 03:20 MDM - Fall Medical Decision Making 71-year-old lady on Plavix presenting due to fall from low height injury complaining of head and back pain. Negative CT scans for acute traumatic injury. Patient subsequently more reliably assessed as confused and further evaluation ordered with handoff of patient care to Dr. Wade pending completion of ED evaluation. Patient received in checkout from previous physician at shift change. She was pending laboratory work-up at that point. CBC is normal. Potassium is 3.3. Creatinine is 1.6 which is baseline for the patient. Potassium is repleted. Urinalysis shows hematuria with some contamination and leukocyte esterase. The patient has had multiple urines with similar indices recently with no bacterial growth on culture. Suspect this is her baseline. She will be allowed discharge Lab Data : 06/01/22 22:52 06/01/22 22:52 Radiology Impressions Cervical Spine CT 06/01/22 20:57 IMPRESSION: 1. No acute fracture demonstrated. 2. Multilevel spondylosis, diffuse cervical arthrosis and degenerative changes as described with previous C5-C6 ACDF. Chest/Abdomen/Pelvis CT 06/01/22 20:57 IMPRESSION: No sign of significant traumatic injury in the thorax. IMPRESSION: 1. No sign of significant traumatic injury in the abdomen or pelvis. 2. Diffuse aneurysmal dilation of the abdominal aorta measuring up to 4.6 cm. Follow-up imaging in 6 months is recommended. In addition to planning follow-up imaging, one should also consider surgical or endovascular referral. 3. Incidental findings above. COMMENTS: Consistent with the [employer]'s Incidental Findings Committee white paper (J Am Missy Radiol 2018): Any incidental renal lesion less than 1 cm or classified as too small to characterize, or any incidental cystic renal lesion characterized as simple-appearing, is likely benign. No follow-up imaging is recommended for these lesions per consensus recommendations based on imaging criteria. Head CT 06/01/22 20:57 IMPRESSION: Diffuse atrophy and chronic/remote ischemic changes without evidence of superimposed acute infarct, hemorrhage, mass-effect or acute intracranial injury. Laboratory Results WBC 6.6 10^3/uL (4.0-10.0) 06/01/22 22:52 RBC 4.76 10^6/uL (4.1-5.3) 06/01/22 22:52 Hgb 13.1 g/dL (11.5-15.3) 06/01/22 22:52 Hct 38.9 % (37.0-47.0) 06/01/22 22:52 MCV 81.7 fl (81-99) 06/01/22 22:52 MCH 27.5 pg (28.0-34.0) L 06/01/22 22:52 MCHC 33.7 g/dL (30.0-36.0) 06/01/22 22:52 RDW 14.3 % (12.1-15.1) 06/01/22 22:52 Plt Count 262 10^3/cmm (130-400) 06/01/22 22:52 MPV 10.6 fL (7.4-10.4) H 06/01/22 22:52 Neut % (Auto) 71.1 % 06/01/22 22:52 Lymph % (Auto) 18.6 % 06/01/22 22:52 [place] % (Auto) 8.8 % 06/01/22 22:52 Eos % (Auto) 0.3 % 06/01/22 22:52 Baso % (Auto) 0.9 % 06/01/22 22:52 Neut # (Auto) 4.67 10^3/uL (1.8-7.7) 06/01/22 22:52 Lymph # (Auto) 1.2 10^3/uL (0.8-4.8) 06/01/22 22:52 [place] # (Auto) 0.6 10^3/uL (0.2-0.9) 06/01/22 22:52 Eos # (Auto) 0.0 10^3/uL (0.0-0.8) 06/01/22 22:52 Baso # (Auto) 0.1 10^3/uL (0.0-0.1) 06/01/22 22:52 Nucleated RBC % (auto) 0 % 06/01/22 22:52 Nucleated RBCs # 0.0 /100WBC 06/01/22 22:52 Sodium 139 mmol/L (136-145) 06/01/22 22:52 Potassium 3.3 mmol/L (3.5-5.1) L 06/01/22 22:52 Chloride 103 mmol/L (98-107) 06/01/22 22:52 Carbon Dioxide 24 mmol/L (22-29) 06/01/22 22:52 Anion Gap 15.3 (5-19) 06/01/22 22:52 BUN 14 mg/dL (8-23) 06/01/22 22:52 Creatinine 1.6 mg/dL (0.5-0.9) H 06/01/22 22:52 GFR Calculation Not Reportable 06/01/22 22:52 Glucose 100 mg/dL (65-115) 06/01/22 22:52 POC Glucose 91 mg/dL (70-110) 06/02/22 00:30 Calculated Osmolality 289 mOsm/kg (285-295) 06/01/22 22:52 Calcium 9.6 mg/dL (8.5-10.5) 06/01/22 22:52 Total Bilirubin 0.5 mg/dL (0.15-1.2) 06/01/22 22:52 AST 21 U/L (0-32) 06/01/22 22:52 ALT 15 U/L (0-33) 06/01/22 22:52 Alkaline Phosphatase 139 IU/L (35-105) H 06/01/22 22:52 Total Protein 6.5 g/dL (6.6-8.7) L 06/01/22 22:52 Albumin 3.9 g/dL (3.5-5.2) 06/01/22 22:52 Globulin 2.6 g/dL (1.3-4.6) 06/01/22 22:52 TSH 1.32 uIU/mL (0.27-4.20) 06/01/22 22:52 Urine Color Dark yellow (Yellow) 06/02/22 00:53 Urine Appearance Cloudy (CLEAR) 06/02/22 00:53 Urine pH 7 (5-7) 06/02/22 00:53 Ur Specific [place] 1.010 (1.005-1.030) 06/02/22 00:53 Urine Protein 3+ (Negative) H 06/02/22 00:53 Urine Glucose (UA) Norm (Normal) 06/02/22 00:53 Urine Ketones 1+ (Negative) H 06/02/22 00:53 Urine Blood 3+ (Negative) H 06/02/22 00:53 Urine Nitrate Negative (Negative) 06/02/22 00:53 Urine Bilirubin Neg (Negative) 06/02/22 00:53 Urine Urobilinogen 1 mg/dL (Negative) H 06/02/22 00:53 Ur Leukocyte Esterase 2+ (Negative) H 06/02/22 00:53 Urine RBC Too numerous to cnt /hpf (0-2) H 06/02/22 00:53 Urine WBC 15-25 /hpf (0-5) H 06/02/22 00:53 Ur Squamous Epith Cells 5-10 /hpf (0-5) H 06/02/22 00:53 Amorphous Sediment Not Reportable 06/02/22 00:53 Urine Bacteria Trace /hpf (NONE) 06/02/22 00:53 Urine Mucus 1+ /hpf 06/02/22 00:53 Salicylates < 0.3 mg/dL (3-10) L 06/01/22 22:52 Urine Opiates Screen Negative ng/mL (Negative) 06/02/22 00:53 Acetaminophen < 5.0 ug/mL (10-30) L 06/01/22 22:52 Ur Barbiturates Screen Negative ng/mL (Negative) 06/02/22 00:53 Ur Phencyclidine Scrn Negative ng/mL (Negative) 06/02/22 00:53 Ur Amphetamines Screen Negative ng/mL (Negative) 06/02/22 00:53 U Benzodiazepines Scrn Negative ng/mL (Negative) 06/02/22 00:53 Urine Cocaine Screen Negative ng/mL (Negative) 06/02/22 00:53 U Marijuana (THC) Screen Negative ng/mL (Negative) 06/02/22 00:53 Ethyl Alcohol < 10 mg/dL (0-10) 06/01/22 22:52 SARS-CoV-2 Ag (Rapid) Negative (Negative) 06/01/22 22:50 Discharge Plan Discharge Patient Disposition: Home Clinical Impression: Fall, Abdominal aortic aneurysm (AAA) 3.0 cm to 5.0 cm in diameter in female, Aneurysm of right common iliac artery, Aneurysm artery, renal, Confusion with nonfocal neurological examination Condition: Stable Prescriptions: No Action carvedilol 25 mg Tablet 25 mg PO BID@0900,2100 Qty: 180 0RF clonidine HCl 0.1 mg Tablet 0.1 mg PO BID Qty: 180 0RF isosorbide mononitrate 30 mg Tablet Extended Release 24 Hr 15 mg PO DAILY Qty: 90 0RF aspirin 81 mg Tablet,Delayed Release (Dr/Ec) 81 mg PO DAILY Qty: 90 0RF amlodipine 10 mg Tablet 10 mg PO DAILY Qty: 90 0RF atorvastatin 40 mg tablet 40 mg PO QPM Qty: 90 0RF clopidogrel 75 mg tablet 75 mg PO DAILY 0RF nitroglycerin [Nitrostat] 0.4 mg Tablet, Sublingual 0.4 mg SUBLINGUAL Q5M PRN (Reason: Chest Pain) 0RF Rx Instructions: do not exceed 3 doses per episode Discharge Orders: Discharge ED (Routine); Ordered 06/02/22 Ordered By: Ricky Wade Referrals: Silvia Peng MD [Primary Care Provider] - Discharge Diet: Usual diet Discharge Activity: Increase activity as tolerated Patient Instructions: Abdominal Aortic Aneurysm, Fall Prevention for Older Adults (ED) Activity Restrictions/Additional Instructions: Thank you for visiting the emergency department. You were seen and evaluated for fall. The exact cause of your fall and circumstances is unclear. No acute traumatic injury was identified on CT imaging. For pain related to symptoms you may use [id number] medications however please do not exceed the daily recommended dosage and please keep in mind that many namebrand medications contain the same active ingredients. You have age-related changes on your CT scan of your head and degenerative cervical spine changes. Additionally you continue to have diffuse aneurysmal dilation of the abdominal aorta, and also aneurysm of the right common femoral artery and right renal artery. Recommendation is for follow-up imaging in 6 months. Additionally you should follow-up with vascular surgery. Please follow-up with your primary care provider. Please return to the emergency department for anything that you are concerned about a feel needs emergency department evaluation. Coding Level of Care Code ED Acid Concentrator for [place] Fwd Exam Comprehensive
--- NOTE | 2022-06-01 20:57 | CTR_ITS ---
PROCEDURE INFORMATION: Exam: CT Head Without Contrast Exam date and time: 06/01/2022 9:13 PM Age: 71 years old Clinical indication: Injury or trauma; Fall; Blunt trauma (contusions or hematomas); Additional info: Fall from tree, loc TECHNIQUE: Imaging protocol: Computed tomography of the head without contrast. Radiation optimization: All CT scans at this facility use at least one of these dose optimization techniques: automated exposure control; mA and/or kV adjustment per patient size (includes targeted exams where dose is matched to clinical indication); or iterative reconstruction. COMPARISON: CT head wo con* [id number] 05/17/2022 10:46 PM RADIATION DOSE METRICS: Total DLP (mGy-cm): 838.08 FINDINGS: Brain: Prominence of the sulci consistent with diffuse atrophy. No mass effect or midline shift. Periventricular and subcortical white matter low-attenuation consistent with chronic small vessel ischemic changes. No evidence of acute intracranial hemorrhage. Cerebral ventricles: Ventricular prominence proportional to sulci. No hydrocephalus. Paranasal sinuses: No significant or acute abnormality. No air-fluid levels. Mastoid air cells: No acute abnormality. No significant mastoid effusion. Bones/joints: No acute osseous abnormality. No acute fracture. Soft tissues: No significant soft tissue abnormalities. Vasculature: Atherosclerotic vascular calcification. CT/CT head wo con* [id number] IMPRESSION: Diffuse atrophy and chronic/remote ischemic changes without evidence of superimposed acute infarct, hemorrhage, mass-effect or acute intracranial injury.
--- NOTE | 2022-06-01 20:57 | CTR_ITS ---
PROCEDURE INFORMATION: Exam: CT Chest Without Contrast; Diagnostic Exam date and time: 06/01/2022 9:23 PM Age: 71 years old Clinical indication: Abdominal pain and other: Lumbar spine; Generalized; Other: No chest complaints; Additional info: Fall from tree, back rib and flank pain TECHNIQUE: Imaging protocol: Diagnostic computed tomography of the chest without contrast. Radiation optimization: All CT scans at this facility use at least one of these dose optimization techniques: automated exposure control; mA and/or kV adjustment per patient size (includes targeted exams where dose is matched to clinical indication); or iterative reconstruction. COMPARISON: CT angio chest abdomen pelvis 03/07/2022 6:38 AM RADIATION DOSE METRICS: Total DLP (mGy-cm): 1305.91 FINDINGS: Lungs: There is no consolidation. Pleural spaces: There is no pleural effusion or pneumothorax. Heart: Heart size is normal. There is no pericardial effusion. There is moderate coronary artery calcification. Mediastinal space: There is no mediastinal hematoma. Lymph nodes: There is no mediastinal or hilar lymphadenopathy. Vasculature: There is severe aortic atherosclerotic disease. Bones/joints: The visible portions of the clavicles and shoulders, scapula, ribs, sternum, and spine are unremarkable. Soft tissues: The extrathoracic soft tissues are unremarkable. PROCEDURE INFORMATION: Exam: CT Abdomen And Pelvis Without Contrast Exam date and time: 06/01/2022 9:23 PM Age: 71 years old Clinical indication: Abdominal pain and other: Lumbar spine; Generalized; Other: No chest complaints; Additional info: Fall from tree, back rib and flank pain TECHNIQUE: Imaging protocol: Computed tomography of the abdomen and pelvis without contrast. Radiation optimization: All CT scans at this facility use at least one of these dose optimization techniques: automated exposure control; mA and/or kV adjustment per patient size (includes targeted exams where dose is matched to clinical indication); or iterative reconstruction. COMPARISON: CT angio chest abdomen pelvis 03/07/2022 6:38 AM RADIATION DOSE METRICS: Total DLP (mGy-cm): 1305.91 FINDINGS: Liver: The liver is normal. Gallbladder and bile ducts: Cholelithiasis is present. There is no sign of cholecystitis. There is no intrahepatic or extrahepatic bile duct dilation. Pancreas: There is mild atrophy of the pancreas. Spleen: The spleen is unremarkable. Adrenal glands: Normal. No mass. Kidneys and ureters: Right ureteral stent is appropriately positioned with proximal coil in the renal pelvis and distal coil in the urinary bladder. Severe left renal atrophy. Nonobstructive stones are seen in both kidneys. There is a simple cyst in the left kidney. Stomach and bowel: The stomach is unremarkable. The small bowel is nondilated. There is moderate sigmoid colonic diverticulosis without evidence of diverticulitis. Appendix: The appendix is not visible. Intraperitoneal space: There is no intraperitoneal free air. Vasculature: There is diffuse abdominal aortic ectasia. The abdominal aorta measures up to 4.6 cm diameter. There is 2.5 cm right common iliac artery aneurysm. 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 Lymph nodes: There is no lymphadenopathy in the retroperitoneum, mesentery, pelvis or inguinal regions. Urinary bladder: The urinary bladder is unremarkable. Reproductive: The uterus is absent. There is no adnexal mass or large cyst. Bones/joints: There is mild degenerative disease in the lumbar spine. Intact posterolateral fusion at L3-4. The pelvis and hips are unremarkable. No acute fracture. Soft tissues: The abdominal wall is intact. CT/[place] [id number] IMPRESSION: No sign of significant traumatic injury in the thorax. IMPRESSION: 1. No sign of significant traumatic injury in the abdomen or pelvis. 2. Diffuse aneurysmal dilation of the abdominal aorta measuring up to 4.6 cm. Follow-up imaging in 6 months is recommended. In addition to planning follow-up imaging, one should also consider surgical or endovascular referral. 3. Incidental findings above. COMMENTS: Consistent with the [employer]'s Incidental Findings Committee white paper (J Am Missy Radiol 2018): Any incidental renal lesion less than 1 cm or classified as too small to characterize, or any incidental cystic renal lesion characterized as simple-appearing, is likely benign. No follow-up imaging is recommended for these lesions per consensus recommendations based on imaging criteria.
--- NOTE | 2022-06-01 20:57 | CTR_ITS ---
PROCEDURE INFORMATION: Exam: CT Cervical Spine Without Contrast Exam date and time: 06/01/2022 9:17 PM Age: 71 years old Clinical indication: Neck pain; Prior surgery; Additional info: Fall from tree, loc TECHNIQUE: Imaging protocol: Computed tomography of the cervical spine without contrast. Radiation optimization: All CT scans at this facility use at least one of these dose optimization techniques: automated exposure control; mA and/or kV adjustment per patient size (includes targeted exams where dose is matched to clinical indication); or iterative reconstruction. COMPARISON: 1. CT cervical spin wo con* [id number] 10/31/2021 6:[address] Cervical Spine w cont [id number] 01/20/2018 10:26 AM RADIATION DOSE METRICS: Total DLP (mGy-cm): 425.4 FINDINGS: Bones/joints: Chronic minimal degenerative C4 anterior subluxation. Previous C5-C6 ACDF with anterior plate and transcortical screws in place. No acute fracture demonstrated. Grossly normal vertebral body height. Multilevel spondylosis with degenerative endplate spurring. Bilateral facet, uncovertebral and atlantoaxial joint arthrosis with marginal hypertrophic bony spurring. Discs/Spinal canal/Neural foramina: Fused C5-C6 disc level. Mild spinal stenosis. Moderate to severe multilevel bilateral foraminal stenosis. Lungs: No significant or acute abnormality of the visualized lung apices. Thyroid: Redemonstrated left thyroid lobe nodules including approximately 2.2 cm inferior left thyroid lobe/thyroid isthmus nodule without significant interval change. Soft tissues: No significant soft tissue abnormalities. CT/CT cervical spin wo con* [id number] IMPRESSION: 1. No acute fracture demonstrated. 2. Multilevel spondylosis, diffuse cervical arthrosis and degenerative changes as described with previous C5-C6 ACDF.
--- NOTE | 2022-06-01 22:33 | ECG_ITS ---
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 Measurements Intervals [place] Rate: 66 P: 57 PA: 160 QRS: -13 QRSD: 83 T: 21 QT: 388 QTc: 409 Interpretive Statements SINUS RHYTHM NONSPECIFIC T-WAVE ABNORMALITY Compared to ECG 05/17/2022 23:20:43 Possible ischemia no longer present T-wave abnormality still present Electronically Signed On 06-02-2022 8:37:24 CDT by Juan Francisco Brown M.D. [id number]
[2022-06-01 22:52] LABS: Glucose Point of Care 94 mg/dL (70-110)
[2022-06-01 22:59] LABS: Basophils # 0.1 10^3/uL (0.0-0.1); Basophils % 0.9 %; Eosinophils % 0.3 %; Hematocrit 38.9 % (37.0-47.0); Hemoglobin 13.1 g/dL (11.5-15.3); Lymphocytes # 1.2 10^3/uL (0.8-4.8); Lymphocytes % 18.6 %; Mean Corpuscular HGB Conc 33.7 g/dL (30.0-36.0); Mean Corpuscular Hemoglobin 27.5 pg (28.0-34.0); Mean Corpuscular Volume 81.7 fl (81-99); Mean Platelet Volume 10.6 fL (7.4-10.4); Monocytes # 0.6 10^3/uL (0.2-0.9); Monocytes % 8.8 %; Neutrophils # 4.67 10^3/uL (1.8-7.7); Neutrophils % 71.1 %; Nucleated Red Blood Cells % 0 %; Platelet Count 262 10^3/cmm (130-400); Red Blood Count 4.76 10^6/uL (4.1-5.3); Red Cell Distribution Width 14.3 % (12.1-15.1); White Blood Count 6.6 10^3/uL (4.0-10.0)
[2022-06-01 23:26] LABS: Alanine Aminotransferase 15 U/L (0-33); Albumin Level 3.9 g/dL (3.5-5.2); Alkaline Phosphatase 139 IU/L (35-105); Anion Gap 15.3 (5-19); Aspartate Amino Transferase 21 U/L (0-32); Blood Urea Nitrogen 14 mg/dL (8-23); Calcium 9.6 mg/dL (8.5-10.5); Carbon Dioxide 24 mmol/L (22-29); Chloride 103 mmol/L (98-107); Globulin 2.6 g/dL (1.3-4.6); Glucose 100 mg/dL (65-115); Osmolality Calculated 289 mOsm/kg (285-295); Potassium 3.3 mmol/L (3.5-5.1); Sodium 139 mmol/L (136-145); Thyroid Stimulating Hormone 1.32 uIU/mL (0.27-4.20); Total Bilirubin 0.5 mg/dL (0.15-1.2); Total Protein 6.5 g/dL (6.6-8.7)
[2022-06-01 23:29] LABS: Acetaminophen < 5.0 ug/mL (10-30); Salicylate < 0.3 mg/dL (3-10)
[2022-06-01 23:30] LABS: Alcohol Level < 10 mg/dL (0-10)
[2022-06-01 23:55] VITALS: BP 202/96; PULSE 70; RESP 18
[2022-06-02] MEDS: potassium chloride ER 20 mEq Tablet PO (00:58)
[2022-06-02 01:00] LABS: Glucose Point of Care 91 mg/dL (70-110)
[2022-06-02 01:01] LABS: SARS Covid-2 Antigen Negative (Negative)
[2022-06-02 01:13] LABS: Amphetamines Screen Urine Negative (Negative); Barbiturates Screen Urine Negative (Negative); Benzodiazepines Screen Urine Negative (Negative); Cocaine Screen Urine Negative (Negative); Opiate Screen Urine Negative (Negative); PCP Screen Urine Negative (Negative); THC Screen Urine Negative (Negative)
[2022-06-02 01:14] LABS: Bilirubin Urine Neg (Negative); Blood Urine 3+ (Negative); Glucose Urine UA Norm (Normal); Ketones Urine 1+ (Negative); Nitrate Urine Negative (Negative); Protein Urine 3+ (Negative); Urine Appearance Cloudy (CLEAR); Urine Color Dark Yellow (Yellow); Urobilinogen Urine 1 mg/dL (Negative); pH Urine 7 (5-7)
[2022-06-02 01:15] LABS: Add Urine Microscopic? YES; Leukocyte Esterase Urine 2+ (Negative)
[2022-06-02 01:17] LABS: Add Urine Culture? Yes; Bacteria Urine TRACE /hpf; Mucus Urine 1+ /hpf; RBC Urine TOO NUMEROUS TO CNT /hpf (0-2); WBC Urine 15-25 /hpf (0-5)
[2022-06-02 02:00] VITALS: BP 219/95; RESP 18; O2SAT 93
[2022-06-02 03:20] VITALS: BP 198/86; RESP 18; O2SAT 93
== END 2022-06-02 03:23 | disposition home or self-care (01) ==
PROVIDERS: Emergency Medicine; Emergency Provider Emergency Medicine; PCP Family Medicine
DX: I71.4 Abdominal aortic aneurysm, without rupture (principal); I72.3 Aneurysm of iliac artery; I72.2 Aneurysm of renal artery; R41.0 Disorientation, unspecified; Z79.82 Long term (current) use of aspirin; Z79.02 Long term (current) use of antithrombotics/antiplatelets; I25.10 Atherosclerotic heart disease of native coronary artery without angina pectoris; E78.5 Hyperlipidemia, unspecified; I10 Essential (primary) hypertension; Z87.891 Personal history of nicotine dependence; Z20.822 Contact with and (suspected) exposure to COVID-19
CPT/HCPCS: 36416; 70450; 71250; 72125; 74176; 80053; 80306; 80307; 81001; 82962; 84443; 85025; 87086; 87426; 93005; 99284

== ENCOUNTER 2022-06-05 06:43 | Day surgery (SDC) | payer MEDICARE, OTHER, SELFPAY ==
[2022-06-04 12:22] VITALS: BMI 25.7
[2022-06-05] VITALS (9 sets, daily range): BP systolic 154–254; BP diastolic 75–140; PULSE 74–97; RESP 16–18; TEMP 36.3–37.7; O2SAT 93–97
--- NOTE | 2022-06-05 | SCC_ITS ---
Procedure done: Cystoscopy, removal right ureteral stent Right flexible ureterorenoscopy, laser lithotripsy (no stent) Right retrograde ureteropyelogram 39.0 seconds of fluoroscopic guidance, for a cumulative dose of 4.83 mGy, was provided to Dr. Michele by the radiology department. C-arm images of the abdomen were saved for the patient's permanent record. [facility]
--- NOTE | 2022-06-05 06:09 | P.HPUD_ITS ---
Surgery/Procedure H&P Update DATE OF PROCEDURE: June 05, 2022 DATE H&P PERFORMED: 06/27/22 H&P UPDATE INFORMATION: I have reviewed H&P completed within last 30 days, I have examined patient prior to procedure and H&P is in [facility]MR on date indicated PREOP DIAGNOSIS: Osteoarthritis right knee PLANNED PROCEDURE: Operation Date: 06/05/22 12:00 Proposed Procedures p CYSTOSCOPY STENT REMOVAL RIGHT RETROGRADE URETEROSCOPY [id number],23611,N13.5(Not Applicable) - Star Michele MD s Ureteral Stent Removal(Not Applicable) - Star Michele MD s Retrograde Pyelogram(Right) - Star Michele MD
--- NOTE | 2022-06-05 08:18 | SC_ITS ---
WS: [id number] C-arm fluoroscopy for right ureteroscopy and ureteral stent, 06/05/2022 Clinical Data: Right ureteroscopy Comparison: None. Findings: The right ureteral stent right ureteroscope are positioned in the right renal pelvis. SC/C-arm FL for Urology Impression: Right ureteral stent and right ureteroscope.
[2022-06-05] MEDS: sodium chloride 0.9% 1,000 ML 30 ML IV (09:04)
--- NOTE | 2022-06-05 09:05 | SUR.PREOP ---
bp and hr reported to dr. catherine, no new order received.
[2022-06-05 09:34] LABS: Basophils # 0.1 10^3/uL (0.0-0.1); Eosinophils % 0.4 %; Hematocrit 37.3 % (37.0-47.0); Hemoglobin 12.2 g/dL (11.5-15.3); Mean Corpuscular HGB Conc 32.7 g/dL (30.0-36.0); Mean Corpuscular Hemoglobin 27.4 pg (28.0-34.0); Mean Corpuscular Volume 83.6 fl (81-99); Mean Platelet Volume 11.2 fL (7.4-10.4); Monocytes # 0.5 10^3/uL (0.2-0.9); Monocytes % 9.3 %; Neutrophils # 3.52 10^3/uL (1.8-7.7); Neutrophils % 69.9 %; Nucleated Red Blood Cells % 0 %; Platelet Count 226 10^3/cmm (130-400); Red Blood Count 4.46 10^6/uL (4.1-5.3); Red Cell Distribution Width 14.3 % (12.1-15.1)
[2022-06-05 09:36] LABS: Alanine Aminotransferase 15 U/L (0-33); Albumin Level 3.7 g/dL (3.5-5.2); Alkaline Phosphatase 124 IU/L (35-105); Anion Gap 14.2 (5-19); Aspartate Amino Transferase 23 U/L (0-32); Blood Urea Nitrogen 11 mg/dL (8-23); Calcium 9.4 mg/dL (8.5-10.5); Carbon Dioxide 26 mmol/L (22-29); Chloride 103 mmol/L (98-107); Globulin 2.4 g/dL (1.3-4.6); Glucose 105 mg/dL (65-115); Osmolality Calculated 290 mOsm/kg (285-295); Potassium 3.2 mmol/L (3.5-5.1); Sodium 140 mmol/L (136-145); Total Bilirubin 0.6 mg/dL (0.15-1.2); Total Protein 6.1 g/dL (6.6-8.7)
[2022-06-05 09:39] LABS: Creatinine Clr Calc Pharmacy 48.1952
--- NOTE | 2022-06-05 12:42 | PM.OP ---
Operative Report Date of procedure: June 05, 2022 Pre-op diagnosis: Right upper urinary tract hematuria Post-op diagnosis: Right upper urinary tract hematuria Procedure done: Cystoscopy, removal right ureteral stent Right flexible ureterorenoscopy, laser lithotripsy (no stent) Right retrograde ureteropyelogram Implants: None Specimens removed/disposition: None Pathology: none Surgeon: Leny Anesthesia: General Estimated blood loss: <5 cc Urine output: Not measured Complications: None Findings: There was an unexpected calcification adhered to the right renal pelvic wall with no underlying soft tissue suspicious findings. Stone measured approximately 0.5 cm in size and was completely fragmented with 365 ?m thulium superpulse laser fiber. Otherwise normal inspection of the entire pyelocalyceal system. Brief History: Mrs. Martinez is a 71-year-old white female who 3 months ago presented with severe renal colicky symptoms on the right and gross hematuria and was found to have acute bleeding in the right upper urinary tract of unclear etiology. She has a very severely atrophic left kidney and for that reason she underwent emergency stenting on the right. Was scheduled to have a follow-up ureteroscopy after she recovered from her acute illness but that was canceled after she had some other medical problems and has been hard to get her back into the office to plan. She is admitted today for outpatient ureteroscopic evaluation and stent removal. Procedure: After routine preoperative evaluation examination and obtaining of informed consent she was taken to the operating suite on 06/05/2022 where general anesthesia was administered without difficulty after appropriate timeout was performed, SCDs confirmed to be functioning, preoperative antibiotics administered, beta-lynne protocol confirmed. Prepped and draped in usual sterile fashion in dorsolithotomy position paying careful attention to avoiding pressure points. 21 Belgian cystoscope with 30 degree lens was introduced into the urethra meatus and advanced into the bladder under videoscopy. Stent was in expected position. There was mild encrustation distally. Flexible tip guidewire was advanced up the right ureter without difficulty. The stent was grasped distally and a small portion withdrawn through the urethral meatus where a second guidewire was passed up the stent uncurling the proximal end. The stent was then withdrawn over the guidewire. A 7 Belgian flexible ureteroscope was advanced over the second wire (the first was secured to the drapes as a safety wire). Scope was passed all the way into the renal pelvis and the guidewire removed Contrast was injected to visualize all of the calyces for a RIGHT retrograde ureteropyelogram demonstrating dilation but no other filling defects in the calyceal system. One by one the flexible ureteroscope was advanced into the different calyces in the right and thoroughly the renal pelvis also was thoroughly inspected. All of the calyces were clear of any gross pathology. There was though a roughly 0.5 cm calcification adherent to the renal pelvis medially and posteriorly and this was fragmented with a 365 thulium superpulse laser fiber into mostly sand. There was no active bleeding of any concern. The ureter was carefully inspected as the scope was removed. No pathology identified. The ureter was very nicely dilated. Safety wire was removed and the procedure was completed after drainage of the bladder. She tolerated procedure well without complications and was awakened in the operating room and returned recovery room. PLANS: 1. Anticipate discharge from outpatient surgery today. 2. Return to clinic as needed.
--- NOTE | 2022-06-05 12:51 | ANES.PREANE2 ---
Pre-Anesthetic Assessment Height/Weight: Height 1.63 m Weight 68.039 kg Temp Pulse Resp BP Pulse Ox 99.9 F H 74 18 219/115 94 06/05/22 08:31 06/05/22 08:31 06/05/22 08:31 06/05/22 08:46 06/05/22 08:31 Preop Diagnosis: Right upper urinary tract hematuria Operation Date: 06/05/22 12:00 Proposed Procedures p CYSTOSCOPY STENT REMOVAL RIGHT RETROGRADE URETEROSCOPY [id number],69480,N13.5(Not Applicable) - Star Michele MD s Ureteral Stent Removal(Not Applicable) - Star Michele MD s Retrograde Pyelogram(Right) - Star Michele MD Familial anesthetic complications: None Was Beta Leandro taken within 24 hours: Yes Was Clonidine taken within 24 hours: Yes Last intake: Intake Last Liquid Date 06/04/22 Last Liquid Time 16:00 Last Solid Date 06/04/22 Last Solid Time 16:00 Social Tobacco and No alcohol Exam alert and oriented x 3 rhonchi, irregular Airway Submandibular: within normal limits Cervical ROM: within normal limits Mallampati: Class II Dentition: false Pulmonary Chronic Obstructive Pulmonary Disease and Sleep Apnea CV/HEM Atrial Fibrillation, Coronary Artery Disease, Hypertension and Peripheral Vascular Disease (AAA) Chronic Renal Insufficiency Anesthetic Plan ASA status: 3 Anesthesia: General Medications/Allergies Home Medications Medication Instructions Recorded Confirmed Last Taken Type amlodipine 10 mg tablet 10 mg PO DAILY #90 tab 03/13/22 06/04/22 Unknown Rx aspirin 81 mg tablet,delayed 81 mg PO DAILY #90 tab 03/13/22 06/04/22 Unknown Rx release atorvastatin 40 mg tablet 40 mg PO QPM #90 tab 03/13/22 06/04/22 Unknown Rx carvedilol 25 mg tablet 25 mg PO BID@0900,2100 #180 tab 03/13/22 06/04/22 Unknown Rx clonidine HCl 0.1 mg tablet 0.1 mg PO BID #180 tab 03/13/22 06/04/22 Unknown Rx clopidogrel 75 mg tablet 75 mg PO DAILY 03/13/22 06/05/22 Unknown History isosorbide mononitrate 30 mg 15 mg PO DAILY #90 tab 03/13/22 06/04/22 Unknown Rx tablet,extended release 24 hr nitroglycerin 0.4 mg sublingual 0.4 mg SUBLINGUAL Q5M PRN 03/13/22 06/04/22 Unknown History tablet (Nitrostat) Allergies Allergy/AdvReac Type Severity Reaction Status Date / Time codeine Allergy Unknown Unknown Verified 06/04/22 12:20 morphine Allergy Unknown Unknown Verified 06/04/22 12:20 Opioids - Morphine Analogues Allergy Unknown Unknown Verified 06/04/22 12:20 Opioids-Meperidine and Allergy Unknown Unknown Verified 06/04/22 12:20 Related Opioids-Methadone and Related Allergy Unknown Unknown Verified 06/04/22 12:20 hydrocodone Allergy VOMITING Verified 06/04/22 12:20 AND PASSING OUT oxycodone Allergy VOMITING,PASSES Verified 06/04/22 12:20 OUT Current Medications Generic Name Dose Route Start Last Admin Trade Name Freq PRN Reason Stop Dose Admin Sodium Chloride 1,000 mls @ 30 mls/hr 06/05/22 08:30 06/05/22 09:04 Sodium Chloride 0.9% IV 06/06/22 08:29 30 mls/hr .Q24H MARI Administration PFSH Anesthesia Medical History Abdominal aortic aneurysm (AAA) 3.0 cm to 5.0 cm in diameter in female Abnormal EKG 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 by CTA Jan 2018 Arnold-Chiari malformation, type I Atrophy of left kidney Coronary artery disease Esophageal thickening incidental finding on CT 03/2021 High risk medication use Hyperlipidemia Hypertension, essential Obstructive sleep apnea Peripheral vascular disease multiple vessels Polypharmacy Primary osteoarthritis of knees, bilateral Seropositive rheumatoid arthritis of multiple joints Thyroid nodule incidental indeterminant finding on CT 03/2021 Surgical History H/O hysterectomy with oophorectomy History of appendectomy History of total right knee replacement (TKR) S/P carpal tunnel release right, Dr. Hazel, 2014 S/P cataract extraction and insertion of intraocular lens bilateral S/P cervical spinal fusion ACDFF Dr. Dawn 12/07/2015 S/P right coronary artery (RCA) stent placement (~05/2019) Family History Mother CAD (coronary artery disease) Father No problems noted. Other Cancer Rheumatoid arthritis Denies family history of Chronic kidney disease (CKD) Systemic lupus erythematosus (SLE) in adult Lung disease Hypertension Social History Smoking and tobacco status: former smoker Alcohol intake: never Marital status: Current occupational status: retired History of recent travel: No (12/10/19) Data Anesthesia : 06/05/22 09:00 06/05/22 09:00 Short CBC 06/05/22 Range/Units 09:00 WBC 5.0 (4.0-10.0) 10^3/uL Hgb 12.2 (11.5-15.3) g/dL Hct 37.3 (37.0-47.0) % MCV 83.6 (81-99) fl Plt Count 226 (130-400) 10^3/cmm Neut % (Auto) 69.9 % Neut # (Auto) 3.52 (1.8-7.7) 10^3/uL BMP 06/05/22 09:00 Sodium 140 Potassium 3.2 L Chloride 103 Carbon Dioxide 26 BUN 11 Creatinine 1.0 H Glucose 105 Calcium 9.4 Liver Function 06/05/22 Range/Units 09:00 Total Bilirubin 0.6 (0.15-1.2) mg/dL AST 23 (0-32) U/L ALT 15 (0-33) U/L Alkaline Phosphatase 124 H (35-105) IU/L Albumin 3.7 (3.5-5.2) g/dL Cardiac Studies: Echocardiogram Limited Views 03/08/22 Echocardiogram Ultrasound 04/09/21 Sestamibi Stress Test (Cardiology) 09/09/21
[2022-06-05] MEDS: levofloxacin-dextrose 5 % 500 MG/100 ML PREMIX 100 MG IV (12:59)
[2022-06-05] MEDS: iohexol 300 mg/mL 50 mL Btl (OR ONLY) XX (13:24)
--- NOTE | 2022-06-05 16:33 | ANE.PACU2 ---
Inpatient post-anesthesia follow up: Airway intact: Yes Vital signs: Temperature 97.7 F Pulse Rate 84 Respiratory Rate 16 Blood Pressure 176/90 Pulse Oximetry 97 Oxygen Delivery Me thod Room Air Oxygen Flow Rate Fraction of Inspir ed Oxygen Hydration adequate: Yes Nausea and vomiting: No Pain level: 2 Mental status: Baseline
== END 2022-06-05 14:56 | disposition home or self-care (01) ==
PROVIDERS: PCP Family Medicine; Visit Provider Urology
PROC: 0TJB8ZZ Inspection of Bladder, Via Natural or Artificial Opening Endoscopic (ICD-10-PCS; CPT 52000; principal; 2022-06-05 11:40)
PROC: (CPT 52310; 2022-06-05 11:40)
PROC: (CPT 74420; 2022-06-05 11:40)
PROC: (CPT 52353; 2022-06-05 11:40)
DX: R31.9 Hematuria, unspecified (principal); E78.5 Hyperlipidemia, unspecified; I10 Essential (primary) hypertension; G47.33 Obstructive sleep apnea (adult) (pediatric); Z98.1 Arthrodesis status; Z95.5 Presence of coronary angioplasty implant and graft
CPT/HCPCS: 52353; 36415; 76000; 80053; 85025; J0360; J1956; J2405; J2704; J3010; J7030

== ENCOUNTER 2022-06-14 14:16 | Emergency (ER) | payer MEDICARE, OTHER, SELFPAY ==
--- NOTE | 2022-06-14 14:26 | ECG_ITS ---
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 Measurements Intervals [place] Rate: 73 P: 74 VT: 153 QRS: 19 QRSD: 86 T: 39 QT: 398 QTc: 439 Interpretive Statements SINUS RHYTHM NONSPECIFIC T-WAVE ABNORMALITY Compared to ECG 06/01/2022 23:17:29 No significant changes Electronically Signed On 06-14-2022 17:13:57 CDT by Karime Solano M.D. [id number] f
--- NOTE | 2022-06-14 14:26 | XR_ITS ---
WS: [id number] Portable AP upright chest, 06/14/2022 Clinical Data: cp Comparison: Portable chest, 05/17/2022. Findings: No nodules, masses or effusions are seen. The heart is normal. The pulmonary vascularity is not increased. No pneumonia or pneumothorax is seen. The aortic arch and descending thoracic aorta s how calcification and tortuosity. There is an anterior cervical disc fusion. The diaphragms are antonio ened. XR/XR chest 1V portable [id number] Impression: Atherosclerosis and hyperinflation.
[2022-06-14 14:36] VITALS: BP 230/116; PULSE 72; RESP 18; O2SAT 98
[2022-06-14] MEDS: aspirin 81 mg Chew Tablet 324 MG PO (14:51)
--- NOTE | 2022-06-14 14:54 | W.ED.CHESTPA ---
Documented by User: Frederic Will 06/14/22 18:12 HPI - Chest Pain General: Chief Complaint: Chest Pain Stated Complaint: CHEST PAIN Time Seen by Provider: 06/14/22 14:35 History of Present Illness: 72-year-old female presents to the emergency room chief complaint of having intermittent chest pain. Patient reports that her has left her for about the last week reports she is unaware where he went in which she develops chest pains. Patient reports upon his return her chest pain did resolve. The patient does report having history of cardiac issues patient does report that her chest pain is worse with movement and deep breathing she reports no prior history of blood clots reporting no other associated issues or symptoms. Associated symptoms: Deny abdominal pain, dyspnea, fever(s), nausea, palpitations or vomiting Review of Systems General: Reports: 10 or more systems reviewed and unremarkable except in HPI and below Const: Denies: fever(s), chills, fatigue or malaise Eyes: Denies: change in vision or blurry vision Card: Reports: chest pain; Denies: palpitations Resp: Denies: dyspnea or productive cough GI: Denies: abdominal pain, nausea or vomiting : Denies: flank pain Musc: Denies: extremity pain or extremity swelling Skin/Breast: Denies: rash or pruritus Neuro: Denies: headache(s) Psych: Denies: anxiety or depression Shayan/Lymph: Denies: easy bleeding All/Imm: Denies: urticaria, throat swelling or facial swelling PFS ED PFSH: Medical History Abdominal aortic aneurysm (AAA) 3.0 cm to 5.0 cm in diameter in female Abnormal EKG 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 by CTA Jan 2018 Arnold-Chiari malformation, type I Atrophy of left kidney Coronary artery disease Esophageal thickening incidental finding on CT 03/2021 High risk medication use Hyperlipidemia Hypertension, essential Obstructive sleep apnea Peripheral vascular disease multiple vessels Polypharmacy Primary osteoarthritis of knees, bilateral Seropositive rheumatoid arthritis of multiple joints Thyroid nodule incidental indeterminant finding on CT 03/2021 Surgical History H/O hysterectomy with oophorectomy History of appendectomy History of total right knee replacement (TKR) S/P carpal tunnel release right, Dr. Hazel, 2014 S/P cataract extraction and insertion of intraocular lens bilateral S/P cervical spinal fusion ACDFF Dr. Dawn 12/07/2015 S/P right coronary artery (RCA) stent placement (~05/2019) Family History Mother CAD (coronary artery disease) Father No problems noted. Other Cancer Rheumatoid arthritis Denies family history of Chronic kidney disease (CKD) Systemic lupus erythematosus (SLE) in adult Lung disease Hypertension Social History Smoking and tobacco status: former smoker Alcohol intake: never Marital status: Current occupational status: retired History of recent travel: No (12/10/19) Physical Exam Const: COMMON NORMALS: no acute distress (Patient does appear to be somewhat tearful and anxious on exam.), patient oriented x3 and healthy appearing HENMT: COMMON NORMALS: normocephalic and atraumatic HEAD & SCALP: normocephalic and atraumatic Eye: COMMON NORMALS: Equal, round and reactive pupils present and EOMs intact bilaterally PUPIL: Yes Equal, round and reactive pupils present Neck/C-Spine: COMMON NORMALS: full ROM, supple and no JVD Lymph: LYMPHATIC: no lymphadenopathy noted Chest: COMMONS NORMALS: normal inspection of the chest and normal palpation of entire chest wall Resp: COMMON NORMALS: normal respiratory effort, No retractions and clear to auscultation bilaterally EFFORT & INSPECTION: Yes able to speak in complete sentences and Yes symmetric chest movement AUSCULTATION: clear to auscultation bilaterally Cardio: COMMON NORMALS: no JVD, regular rate and regular rhythm RATE: regular rate RHYTHM: regular rhythm GI: COMMON NORMALS: Normal to inspection, nondistended, normoactive bowel sounds present, Soft to palpation and non-tender INSPECTION: Yes normal to inspection PALPATION: Yes Soft to palpation : COMMON NORMALS: Yes no CVA tenderness BLADDER/KIDNEY EXAM: Yes no CVA tenderness Back/Pelvis: COMMON NORMALS: no CVA tenderness Extremity: COMMON NORMALS: normal to inspection and full ROM Neuro: COMMON NORMALS: patient oriented x3, CN's II-XII intact bilaterally, moves all extremities and no focal motor deficits Psych: COMMON NORMALS: mental status grossly normal, Normal thought process present, cooperative and normal affect THOUGHT PROCESS: Normal thought process present Skin: COMMON NORMALS: no rashes or lesions noted GENERAL SKIN EXAM: no rashes or lesions noted Course Vital Signs: Vital signs: Vital Signs Pulse Rate 72 06/14/22 14:36 Respiratory Rate 18 06/14/22 14:36 Blood Pressure 200/90 06/14/22 21:30 Pulse Oximetry 98 06/14/22 14:36 MDM - Chest Pain Medical Decision Making Due to patient's symptoms and condition lab work and imaging will be obtained we will continue to follow patient is currently asymptomatic. Apparently patient is assessment Lab Data : 06/14/22 15:00 06/14/22 15:00 Radiology Impressions Chest X-Ray 06/14/22 14:26 Impression: Atherosclerosis and hyperinflation. Laboratory Results WBC 4.8 10^3/uL (4.0-10.0) 06/14/22 15:00 RBC 4.25 10^6/uL (4.1-5.3) 06/14/22 15:00 Hgb 11.7 g/dL (11.5-15.3) 06/14/22 15:00 Hct 36.8 % (37.0-47.0) L 06/14/22 15:00 MCV 86.6 fl (81-99) 06/14/22 15:00 MCH 27.5 pg (28.0-34.0) L 06/14/22 15:00 MCHC 31.8 g/dL (30.0-36.0) 06/14/22 15:00 RDW 14.4 % (12.1-15.1) 06/14/22 15:00 Plt Count 213 10^3/cmm (130-400) 06/14/22 15:00 MPV 11.2 fL (7.4-10.4) H 06/14/22 15:00 Neut % (Auto) 64.1 % 06/14/22 15:00 Lymph % (Auto) 24.5 % 06/14/22 15:00 [place] % (Auto) 9.8 % 06/14/22 15:00 Eos % (Auto) 0.2 % 06/14/22 15:00 Baso % (Auto) 1.0 % 06/14/22 15:00 Neut # (Auto) 3.08 10^3/uL (1.8-7.7) 06/14/22 15:00 Lymph # (Auto) 1.2 10^3/uL (0.8-4.8) 06/14/22 15:00 [place] # (Auto) 0.5 10^3/uL (0.2-0.9) 06/14/22 15:00 Eos # (Auto) 0.0 10^3/uL (0.0-0.8) 06/14/22 15:00 Baso # (Auto) 0.1 10^3/uL (0.0-0.1) 06/14/22 15:00 Nucleated RBC % (auto) 0 % 06/14/22 15:00 Nucleated RBCs # 0.0 /100WBC 06/14/22 15:00 Sodium 138 mmol/L (136-145) 06/14/22 15:00 Potassium 3.3 mmol/L (3.5-5.1) L 06/14/22 15:00 Chloride 102 mmol/L (98-107) 06/14/22 15:00 Carbon Dioxide 26 mmol/L (22-29) 06/14/22 15:00 Anion Gap 13.3 (5-19) 06/14/22 15:00 BUN 11 mg/dL (8-23) 06/14/22 15:00 Creatinine 0.8 mg/dL (0.5-0.9) 06/14/22 15:00 GFR Calculation Not Reportable 06/14/22 15:00 Glucose 94 mg/dL (65-115) 06/14/22 15:00 Calculated Osmolality 285 mOsm/kg (285-295) 06/14/22 15:00 Calcium 9.4 mg/dL (8.5-10.5) 06/14/22 15:00 Total Bilirubin 0.7 mg/dL (0.15-1.2) 06/14/22 15:00 AST 22 U/L (0-32) 06/14/22 15:00 ALT 15 U/L (0-33) 06/14/22 15:00 Alkaline Phosphatase 116 IU/L (35-105) H 06/14/22 15:00 Troponin T Baseline 17 ng/L (0-10) H 06/14/22 15:00 Troponin T 120 Minute 20.76 ng/L (0-10) H 06/14/22 17:06 Delta Troponin T 3.76 ABS# (0-10) 06/14/22 17:06 NT-Pro-B Natriuret Pep 1983 pg/mL (0-125) H 06/14/22 15:00 Total Protein 5.9 g/dL (6.6-8.7) L 06/14/22 15:00 Albumin 3.6 g/dL (3.5-5.2) 06/14/22 15:00 Globulin 2.3 g/dL (1.3-4.6) 06/14/22 15:00 Lipase 70 U/L (13-60) H 06/14/22 15:00 Discharge Plan Discharge Patient Disposition: Home Clinical Impression: Chest pain, Hypertension, essential Condition: Stable Prescriptions: No Action carvedilol 25 mg Tablet 25 mg PO BID@0900,2100 Qty: 180 0RF clonidine HCl 0.1 mg Tablet 0.1 mg PO BID Qty: 180 0RF isosorbide mononitrate 30 mg Tablet Extended Release 24 Hr 15 mg PO DAILY Qty: 90 0RF aspirin 81 mg Tablet,Delayed Release (Dr/Ec) 81 mg PO DAILY Qty: 90 0RF amlodipine 10 mg Tablet 10 mg PO DAILY Qty: 90 0RF atorvastatin 40 mg tablet 40 mg PO QPM Qty: 90 0RF nitroglycerin [Nitrostat] 0.4 mg Tablet, Sublingual 0.4 mg SUBLINGUAL Q5M PRN (Reason: Chest Pain) 0RF Rx Instructions: do not exceed 3 doses per episode Discharge Orders: Discharge ED (Routine); Ordered 06/14/22 Ordered By: Ricky Wade Referrals: Silvia Peng MD [Primary Care Provider] - 1-3 days Patient Instructions: Chest Pain (ED), Hypertension (ED) Activity Restrictions/Additional Instructions: Take your blood pressure twice daily for the next few days, and report numbers to your physician. Take your home medications when you get home tonight return for repeated episodes of chest discomfort, shortness of breath, or any other concerning symptoms. Coding Level of Care Code ED Vice President Biostatistics for Chg Fwd Exam Comprehensive Documented by User: Ricky Wade DO 06/15/22 16:41 HPI - Chest Pain General: Chief Complaint: Chest Pain Stated Complaint: CHEST PAIN Time Seen by Provider: 06/14/22 14:35 PFSH ED PFSH: Medical History Abdominal aortic aneurysm (AAA) 3.0 cm to 5.0 cm in diameter in female Abnormal EKG 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 by CTA Jan 2018 Arnold-Chiari malformation, type I Atrophy of left kidney Coronary artery disease Esophageal thickening incidental finding on CT 03/2021 High risk medication use Hyperlipidemia Hypertension, essential Obstructive sleep apnea Peripheral vascular disease multiple vessels Polypharmacy Primary osteoarthritis of knees, bilateral Seropositive rheumatoid arthritis of multiple joints Thyroid nodule incidental indeterminant finding on CT 03/2021 Surgical History H/O hysterectomy with oophorectomy History of appendectomy History of total right knee replacement (TKR) S/P carpal tunnel release right, Dr. Hazel, 2013 S/P cataract extraction and insertion of intraocular lens bilateral S/P cervical spinal fusion ACDFF Dr. Dawn 12/07/2015 S/P right coronary artery (RCA) stent placement (~05/2019) Family History Mother CAD (coronary artery disease) Father No problems noted. Other Cancer Rheumatoid arthritis Denies family history of Chronic kidney disease (CKD) Systemic lupus erythematosus (SLE) in adult Lung disease Hypertension Social History Smoking and tobacco status: former smoker Alcohol intake: never Marital status: Current occupational status: retired History of recent travel: No (12/10/19) Course Vital Signs: Vital signs: Vital Signs Pulse Rate 72 06/14/22 14:36 Respiratory Rate 18 06/14/22 14:36 Blood Pressure 200/90 06/14/22 21:30 Pulse Oximetry 98 06/14/22 14:36 MDM - Chest Pain Medical Decision Making Due to patient's symptoms and condition lab work and imaging will be obtained we will continue to follow patient is currently asymptomatic. Apparently patient is asymptomatic. 72-year-old lady checked out to me by the previous physician at shift change. She came in with anxiety, and chest discomfort. Her chest pain is gone. At 1 point, she may or may not have said something about wanting to kill her . She maintains that she of course does not want to kill her currently. He is with her in the room. She has been calm, and wishes to go home. Her CBC is normal. Her BMP is essentially normal, save a mildly low potassium. She has been quite hypertensive here, which is controlled with IV labetalol, and oral amlodipine. Her delta troponin is not significant. Her EKG was nonacute. She will be allowed home Lab Data : 06/14/22 15:00 06/14/22 15:00 Radiology Impressions Chest X-Ray 06/14/22 14:26 Impression: Atherosclerosis and hyperinflation. Laboratory Results WBC 4.8 10^3/uL (4.0-10.0) 06/14/22 15:00 RBC 4.25 10^6/uL (4.1-5.3) 06/14/22 15:00 Hgb 11.7 g/dL (11.5-15.3) 06/14/22 15:00 Hct 36.8 % (37.0-47.0) L 06/14/22 15:00 MCV 86.6 fl (81-99) 06/14/22 15:00 MCH 27.5 pg (28.0-34.0) L 06/14/22 15:00 MCHC 31.8 g/dL (30.0-36.0) 06/14/22 15:00 RDW 14.4 % (12.1-15.1) 06/14/22 15:00 Plt Count 213 10^3/cmm (130-400) 06/14/22 15:00 MPV 11.2 fL (7.4-10.4) H 06/14/22 15:00 Neut % (Auto) 64.1 % 06/14/22 15:00 Lymph % (Auto) 24.5 % 06/14/22 15:00 [place] % (Auto) 9.8 % 06/14/22 15:00 Eos % (Auto) 0.2 % 06/14/22 15:00 Baso % (Auto) 1.0 % 06/14/22 15:00 Neut # (Auto) 3.08 10^3/uL (1.8-7.7) 06/14/22 15:00 Lymph # (Auto) 1.2 10^3/uL (0.8-4.8) 06/14/22 15:00 [place] # (Auto) 0.5 10^3/uL (0.2-0.9) 06/14/22 15:00 Eos # (Auto) 0.0 10^3/uL (0.0-0.8) 06/14/22 15:00 Baso # (Auto) 0.1 10^3/uL (0.0-0.1) 06/14/22 15:00 Nucleated RBC % (auto) 0 % 06/14/22 15:00 Nucleated RBCs # 0.0 /100WBC 06/14/22 15:00 Sodium 138 mmol/L (136-145) 06/14/22 15:00 Potassium 3.3 mmol/L (3.5-5.1) L 06/14/22 15:00 Chloride 102 mmol/L (98-107) 06/14/22 15:00 Carbon Dioxide 26 mmol/L (22-29) 06/14/22 15:00 Anion Gap 13.3 (5-19) 06/14/22 15:00 BUN 11 mg/dL (8-23) 06/14/22 15:00 Creatinine 0.8 mg/dL (0.5-0.9) 06/14/22 15:00 GFR Calculation Not Reportable 06/14/22 15:00 Glucose 94 mg/dL (65-115) 06/14/22 15:00 Calculated Osmolality 285 mOsm/kg (285-295) 06/14/22 15:00 Calcium 9.4 mg/dL (8.5-10.5) 06/14/22 15:00 Total Bilirubin 0.7 mg/dL (0.15-1.2) 06/14/22 15:00 AST 22 U/L (0-32) 06/14/22 15:00 ALT 15 U/L (0-33) 06/14/22 15:00 Alkaline Phosphatase 116 IU/L (35-105) H 06/14/22 15:00 Troponin T Baseline 17 ng/L (0-10) H 06/14/22 15:00 Troponin T 120 Minute 20.76 ng/L (0-10) H 06/14/22 17:06 Delta Troponin T 3.76 ABS# (0-10) 06/14/22 17:06 NT-Pro-B Natriuret Pep 1983 pg/mL (0-125) H 06/14/22 15:00 Total Protein 5.9 g/dL (6.6-8.7) L 06/14/22 15:00 Albumin 3.6 g/dL (3.5-5.2) 06/14/22 15:00 Globulin 2.3 g/dL (1.3-4.6) 06/14/22 15:00 Lipase 70 U/L (13-60) H 06/14/22 15:00 Discharge Plan Discharge Patient Disposition: Home Clinical Impression: Chest pain, Hypertension, essential Condition: Stable Prescriptions: No Action carvedilol 25 mg Tablet 25 mg PO BID@0900,2100 Qty: 180 0RF clonidine HCl 0.1 mg Tablet 0.1 mg PO BID Qty: 180 0RF isosorbide mononitrate 30 mg Tablet Extended Release 24 Hr 15 mg PO DAILY Qty: 90 0RF aspirin 81 mg Tablet,Delayed Release (Dr/Ec) 81 mg PO DAILY Qty: 90 0RF amlodipine 10 mg Tablet 10 mg PO DAILY Qty: 90 0RF atorvastatin 40 mg tablet 40 mg PO QPM Qty: 90 0RF nitroglycerin [Nitrostat] 0.4 mg Tablet, Sublingual 0.4 mg SUBLINGUAL Q5M PRN (Reason: Chest Pain) 0RF Rx Instructions: do not exceed 3 doses per episode Discharge Orders: Discharge ED (Routine); Ordered 06/14/22 Ordered By: Ricky Wade Referrals: Silvia Peng MD [Primary Care Provider] - 1-3 days Patient Instructions: Chest Pain (ED), Hypertension (ED) Activity Restrictions/Additional Instructions: Take your blood pressure twice daily for the next few days, and report numbers to your physician. Take your home medications when you get home tonight return for repeated episodes of chest discomfort, shortness of breath, or any other concerning symptoms. Coding Level of Care Code ED Vice President Biostatistics for Chg Fwd Exam Comprehensive
--- NOTE | 2022-06-14 14:54 | PC.NURSE ---
PT PLACED ON CONTINUOUS SPO2, NIBP, AND CM.
[2022-06-14] MEDS: sodium chloride 0.9% 500 ML 999 ML IV (15:00)
[2022-06-14 15:07] LABS: Basophils # 0.1 10^3/uL (0.0-0.1); Eosinophils % 0.2 %; Hematocrit 36.8 % (37.0-47.0); Hemoglobin 11.7 g/dL (11.5-15.3); Lymphocytes # 1.2 10^3/uL (0.8-4.8); Lymphocytes % 24.5 %; Mean Corpuscular HGB Conc 31.8 g/dL (30.0-36.0); Mean Corpuscular Hemoglobin 27.5 pg (28.0-34.0); Mean Corpuscular Volume 86.6 fl (81-99); Mean Platelet Volume 11.2 fL (7.4-10.4); Monocytes # 0.5 10^3/uL (0.2-0.9); Monocytes % 9.8 %; Neutrophils # 3.08 10^3/uL (1.8-7.7); Neutrophils % 64.1 %; Nucleated Red Blood Cells % 0 %; Platelet Count 213 10^3/cmm (130-400); Red Blood Count 4.25 10^6/uL (4.1-5.3); Red Cell Distribution Width 14.4 % (12.1-15.1); White Blood Count 4.8 10^3/uL (4.0-10.0)
[2022-06-14] MEDS: nitroglycerin 0.4 mg sublingual Tablet SUBLINGUAL ×2 (15:07→19:56)
--- NOTE | 2022-06-14 15:21 | PC.PHAR ---
pt unable to verify medications-called pts nette no answer-elisa meredith @ [facility] states the rxs entered were filled in 03/15/22 90d/s-elisa meredith @ [facility] states plavix last filled 11/15/21 30d/s states it was her understanding that plavix was dced and changed to aspirin-notes are made in the pharmacy comments
[2022-06-14 15:31] LABS: Troponin(5th) Baseline 17 ng/L (0-10)
--- NOTE | 2022-06-14 15:34 | PC.NURSE ---
During EKG patient stated she planned to shoot her when he arrived to the hospital. Patient stated again during the EKG that she was going to murder her . Let charge nurse know.
[2022-06-14 15:40] LABS: Alanine Aminotransferase 15 U/L (0-33); Albumin Level 3.6 g/dL (3.5-5.2); Alkaline Phosphatase 116 IU/L (35-105); Anion Gap 13.3 (5-19); Aspartate Amino Transferase 22 U/L (0-32); Blood Urea Nitrogen 11 mg/dL (8-23); Calcium 9.4 mg/dL (8.5-10.5); Carbon Dioxide 26 mmol/L (22-29); Chloride 102 mmol/L (98-107); Globulin 2.3 g/dL (1.3-4.6); Glucose 94 mg/dL (65-115); Lipase 70 U/L (13-60); NT Pro B Type Natriuretic Pept 1983 pg/mL (0-125); Osmolality Calculated 285 mOsm/kg (285-295); Potassium 3.3 mmol/L (3.5-5.1); Sodium 138 mmol/L (136-145); Total Bilirubin 0.7 mg/dL (0.15-1.2); Total Protein 5.9 g/dL (6.6-8.7)
--- NOTE | 2022-06-14 16:20 | PC.NURSE ---
pt attempting to leave dr. aguero informed that pt made hi statements against her but states she was joking. dr. aguero at bedside speaking to pt. he vo to put pt on hold.
--- NOTE | 2022-06-14 16:26 | ECG_ITS ---
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 Measurements Intervals [place] Rate: 66 P: 76 TN: 148 QRS: -15 QRSD: 88 T: 57 QT: 408 QTc: 428 Interpretive Statements SINUS RHYTHM MODERATE ST DEPRESSION [0.05+ mV ST DEPRESSION] Compared to ECG 06/14/2022 14:33:39 ST (T wave) deviation now present T-wave abnormality no longer present Electronically Signed On 06-17-2022 18:21:56 CDT by Jamie Ordaz M.D. [id number]
[2022-06-14 17:29] LABS: Troponin 5 2HR 20.76 ng/L (0-10)
[2022-06-14 17:30] LABS: Troponin 5 2HR Delta 3.76 ABS# (0-10)
[2022-06-14] MEDS: amlodipine 10 mg Tablet PO (19:57)
[2022-06-14 20:00] VITALS: BP 240/110
--- NOTE | 2022-06-14 20:26 | ECG_ITS ---
[facility] Test Date: 2022-06-14 Pat Name: Rosie Martinez Department: Room: Gender: Female Director Insurance: : 1950 Requested By: [employer] Order Number: [id number] Gonzalez MD: Jamie Ordaz M.D. Measurements Intervals [place] Rate: 69 P: 95 OR: 141 QRS: 68 QRSD: 84 T: 70 QT: 423 QTc: 455 Interpretive Statements SINUS RHYTHM Compared to ECG 06/14/2022 17:54:08 ST (T wave) deviation no longer present Electronically Signed On 06-17-2022 18:19:35 CDT by Jamie Ordaz M.D. [id number]
[2022-06-14] MEDS: labetalol 5 mg/mL SDV 20mL 20 MG IVP ×2 (21:09→21:56)
[2022-06-14 21:30] VITALS: BP 200/90
== END 2022-06-14 22:16 | disposition home or self-care (01) ==
PROVIDERS: Physician Assistant; Emergency Provider Emergency Medicine; PCP Family Medicine
DX: R07.9 Chest pain, unspecified (principal); I10 Essential (primary) hypertension; Z79.82 Long term (current) use of aspirin; I25.10 Atherosclerotic heart disease of native coronary artery without angina pectoris; E78.5 Hyperlipidemia, unspecified; Z87.891 Personal history of nicotine dependence
CPT/HCPCS: 71045; 80048; 80053; 83690; 83880; 84484; 85025; 93005; 96374; 96376; 99285; J3490; J7040

== ENCOUNTER → 2022-06-25 07:53 | Outpatient (BNVA) | payer MEDICARE, OTHER, SELFPAY | PROVIDERS: PCP Family Medicine; Visit Provider Podiatrist Foot & Ankle Surgery | DX: I73.9 Peripheral vascular disease, unspecified (principal); L60.3 Nail dystrophy; M21.611 Bunion of right foot; M21.612 Bunion of left foot; M19.079 Primary osteoarthritis, unspecified ankle and foot | CPT/HCPCS: 11721; 99203; 99204 ==

== ENCOUNTER 2022-06-29 22:31 | Emergency (ER) | payer MEDICARE, OTHER, SELFPAY ==
[2022-06-29 22:33] VITALS: BP 176/108; PULSE 73; RESP 20; TEMP 36.7; O2SAT 95
[2022-06-29 22:50] LABS: Glucose Point of Care 139 mg/dL (70-110)
--- NOTE | 2022-06-29 23:21 | XRR_ITS ---
PROCEDURE INFORMATION: Exam: XR Chest Exam date and time: 06/29/2022 11:50 PM Age: 72 years old Clinical indication: Other: Weakness TECHNIQUE: Imaging protocol: Radiologic exam of the chest. Views: 1 view. COMPARISON: CR XR chest 1V portable [id number] 06/14/2022 2:50 PM FINDINGS: Lungs: Mild hyperinflation is again noted. No consolidation is identified. No suspicious pulmonary nodules. Pleural spaces: Unremarkable. No pleural effusion. No pneumothorax. Heart/Mediastinum: The cardiomediastinal silhouette is stable in appearance. The thoracic aorta is atherosclerotic and tortuous.. Bones/joints: Postoperative findings of ACDF are again noted.. XR/XR chest 1V portable [id number] IMPRESSION: No acute radiographic findings in the chest.
[2022-06-29 23:46] LABS: Alanine Aminotransferase 13 U/L (0-33); Albumin Level 3.6 g/dL (3.5-5.2); Alkaline Phosphatase 136 IU/L (35-105); Anion Gap 13.9 (5-19); Aspartate Amino Transferase 17 U/L (0-32); Blood Urea Nitrogen 16 mg/dL (8-23); Calcium 10.2 mg/dL (8.5-10.5); Carbon Dioxide 28 mmol/L (22-29); Chloride 105 mmol/L (98-107); Globulin 2.4 g/dL (1.3-4.6); Glucose 116 mg/dL (65-115); Magnesium 2.1 mg/dL (1.7-2.3); Osmolality Calculated 300 mOsm/kg (285-295); Sodium 144 mmol/L (136-145); Total Bilirubin 0.7 mg/dL (0.15-1.2)
[2022-06-29] MEDS: sodium chloride 0.9% 1,000 ML 999 ML IV (23:48)
[2022-06-29] MEDS: enalaprilat 1.25 mg/mL Inj IVP (23:48)
[2022-06-29] MEDS: labetalol 5 mg/mL SDV 20mL 20 MG IVP (23:48)
[2022-06-29] MEDS: amlodipine 10 mg Tablet PO (23:48)
[2022-06-29 23:52] LABS: Basophils # 0.1 10^3/uL (0.0-0.1); Basophils % 0.9 %; Eosinophils % 0.3 %; Hematocrit 39.8 % (37.0-47.0); Hemoglobin 12.6 g/dL (11.5-15.3); Lymphocytes # 0.9 10^3/uL (0.8-4.8); Lymphocytes % 12.1 %; Mean Corpuscular HGB Conc 31.7 g/dL (30.0-36.0); Mean Corpuscular Hemoglobin 26.8 pg (28.0-34.0); Mean Corpuscular Volume 84.7 fl (81-99); Mean Platelet Volume 11.9 fL (7.4-10.4); Monocytes # 0.8 10^3/uL (0.2-0.9); Monocytes % 10.9 %; Neutrophils # 5.34 10^3/uL (1.8-7.7); Neutrophils % 75.7 %; Nucleated Red Blood Cells % 0 %; Platelet Count 219 10^3/cmm (130-400); Red Cell Distribution Width 13.5 % (12.1-15.1); White Blood Count 7.1 10^3/uL (4.0-10.0)
[2022-06-30 00:02] LABS: Potassium 2.9 mmol/L (3.5-5.1)
[2022-06-30 00:29] VITALS: BP 132/65; PULSE 71; RESP 18; O2SAT 96
[2022-06-30] MEDS: potassium chloride oral liq 20 mEq/15 mL UDC 40 MEQ PO (00:30)
[2022-06-30 02:15] LABS: Add Urine Microscopic? YES; Bilirubin Urine 1+ (Negative); Blood Urine Neg (Negative); Glucose Urine UA Norm (Normal); Ketones Urine Negative (Negative); Leukocyte Esterase Urine Negative (Negative); Nitrate Urine Negative (Negative); Protein Urine 2+ (Negative); Urine Appearance Clear (CLEAR); Urine Color Yellow (Yellow); Urobilinogen Urine Neg (Negative); pH Urine 5 (5-7)
[2022-06-30 02:20] LABS: Bacteria Urine TRACE /hpf; Mucus Urine TRACE /hpf; RBC Urine 0-4 /hpf (0-2); Squamous Epithelial Cell Urine 0-4 /hpf (0-5); WBC Urine 0-4 /hpf (0-5)
[2022-06-30 02:21] LABS: Add Urine Culture? No; Calcium Oxalate Crystals Urine 0-4 /hpf
--- NOTE | 2022-06-30 02:44 | W.ED.AMS ---
HPI - Altered Mental Status General: Chief Complaint: Altered Mental Status Stated Complaint: weakness Time Seen by Provider: 06/29/22 22:37 Source: patient and EMS History of Present Illness: 72-year-old female well-known to the emergency department. She has a history of medication noncompliance. She presents after period of change in mental status in which she was found outside by her not making sense. She does not remember this episode. Mental status otherwise seems improved at this point. She was found to be hypertensive on EMS arrival. She denies chest discomfort, significant shortness of breath, headache. She denies fever. MD complaint: altered mental status and confusion Timing confirmed by: other Severity: moderate Consistency of symptoms: Waxing and Waning Associated symptoms: Deny delusions or suicidal ideation Review of Systems Const: Denies: fever(s) Eyes: Denies: change in vision Card: Denies: chest pain Resp: Denies: dyspnea GI: Denies: abdominal pain, nausea or vomiting Musc: Reports: back pain Neuro: Denies: headache(s) Psych: Denies: suicidal ideation PFS ED PFSH: Medical History Abdominal aortic aneurysm (AAA) 3.0 cm to 5.0 cm in diameter in female Abnormal EKG 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 by CTA Jan 2018 Arnold-Chiari malformation, type I Atrophy of left kidney Coronary artery disease Esophageal thickening incidental finding on CT 03/2021 High risk medication use Hyperlipidemia Hypertension, essential Obstructive sleep apnea Peripheral vascular disease multiple vessels Polypharmacy Primary osteoarthritis of knees, bilateral Seropositive rheumatoid arthritis of multiple joints Thyroid nodule incidental indeterminant finding on CT 03/2021 Surgical History H/O hysterectomy with oophorectomy History of appendectomy History of total right knee replacement (TKR) S/P carpal tunnel release right, Dr. Hazel, 2013 S/P cataract extraction and insertion of intraocular lens bilateral S/P cervical spinal fusion ACDFF Dr. Dawn 12/07/2015 S/P right coronary artery (RCA) stent placement (~05/2019) Family History Mother CAD (coronary artery disease) Father No problems noted. Other Cancer Rheumatoid arthritis Denies family history of Chronic kidney disease (CKD) Systemic lupus erythematosus (SLE) in adult Lung disease Hypertension Social History Smoking and tobacco status: former smoker Alcohol intake: never Marital status: Current occupational status: retired History of recent travel: No (12/10/19) Physical Exam Const: COMMON NORMALS: alert GENERAL APPEARANCE: cooperative and frail appearing HENMT: COMMON NORMALS: normocephalic, atraumatic and Normal external nose present HEAD & SCALP: normocephalic and atraumatic FACE & SINUS: normal facial exam and face symmetric NOSE: Normal external nose present THROAT: posterior oropharynx normal Eye: COMMON NORMALS: Equal, round and reactive pupils present and EOMs intact bilaterally PUPIL: Yes Equal, round and reactive pupils present Neck/C-Spine: GENERAL: Yes trachea midline Chest: CHEST: Yes Symmetrical chest wall rise Resp: COMMON NORMALS: normal respiratory effort, No use of accessory muscles and clear to auscultation bilaterally AUSCULTATION: clear to auscultation bilaterally Cardio: COMMON NORMALS: regular rate, regular rhythm and Peripheral pulses 2+ throughout RATE: regular rate RHYTHM: regular rhythm PERIPHERAL PULSES: Peripheral pulses 2+ throughout GI: COMMON NORMALS: Normal to inspection, nondistended, normoactive bowel sounds present and Soft to palpation PALPATION: Yes Soft to palpation Extremity: COMMON NORMALS: no pedal edema Neuro: COURTNEY COMA SCALE: document GCS findings Courtney coma scale eye opening: Spontaneous Courtney coma scale verbal response: Orientated (Not to time, but to situation) Courtney coma scale motor response: Obey commands [place] coma scale total score: 15 SENSORIUM/ORIENTATION: Yes alert CRANIAL NERVES: Yes CN normal except as noted COORDINATION/BALANCE: opgnqv-dl-[id number] test normal and moiw-cu-zssv test normal SPEECH: speech normal MOTOR EXAM: Pronator motor function not present COORDINATION: ymnuse-sk-vven test normal and szsb-rv-kcxs test normal Psych: THOUGHT CONTENT: No delusions Course Vital Signs: Vital signs: Vital Signs Temperature 98.1 F 06/29/22 22:33 Pulse Rate 71 06/30/22 00:29 Respiratory Rate 18 06/30/22 00:29 Blood Pressure 132/65 06/30/22 00:29 Pulse Oximetry 96 06/30/22 00:29 Oxygen Delivery Me thod 06/30/22 00:29 MDM - Altered Mental Status Medical Decision Making Patient appears at her baseline mental status at this point. Her neurological exam is nonfocal. She had a CT of her head, chest abdomen pelvis on 06/01. With nonfocal findings, I do not see a reason to repeat. Chest x-ray is nonacute. CBC is normal. Potassium is 2.9 and is repleted. Alysis does not show urinary tract infection. She is afebrile. On arrival, she is quite hypertensive, with a blood pressure of 220 systolic. She admits to not taking any of her medications. When asked why, she says that I just do not take them . After medication here, blood pressure is 132/65. She seems improved to her baseline. She will be allowed home Lab Data : 06/29/22 22:44 06/29/22 22:44 Radiology Impressions Chest X-Ray 06/29/22 23:21 IMPRESSION: No acute radiographic findings in the chest. Laboratory Results WBC 7.1 10^3/uL (4.0-10.0) 06/29/22 22:44 RBC 4.70 10^6/uL (4.1-5.3) 06/29/22 22:44 Hgb 12.6 g/dL (11.5-15.3) 06/29/22 22:44 Hct 39.8 % (37.0-47.0) 06/29/22 22:44 MCV 84.7 fl (81-99) 06/29/22 22:44 MCH 26.8 pg (28.0-34.0) L 06/29/22 22:44 MCHC 31.7 g/dL (30.0-36.0) 06/29/22 22:44 RDW 13.5 % (12.1-15.1) 06/29/22 22:44 Plt Count 219 10^3/cmm (130-400) 06/29/22 22:44 MPV 11.9 fL (7.4-10.4) H 06/29/22 22:44 Neut % (Auto) 75.7 % 06/29/22 22:44 Lymph % (Auto) 12.1 % 06/29/22 22:44 [place] % (Auto) 10.9 % 06/29/22 22:44 Eos % (Auto) 0.3 % 06/29/22 22:44 Baso % (Auto) 0.9 % 06/29/22 22:44 Neut # (Auto) 5.34 10^3/uL (1.8-7.7) 06/29/22 22:44 Lymph # (Auto) 0.9 10^3/uL (0.8-4.8) 06/29/22 22:44 [place] # (Auto) 0.8 10^3/uL (0.2-0.9) 06/29/22 22:44 Eos # (Auto) 0.0 10^3/uL (0.0-0.8) 06/29/22 22:44 Baso # (Auto) 0.1 10^3/uL (0.0-0.1) 06/29/22 22:44 Nucleated RBC % (auto) 0 % 06/29/22:44 Nucleated RBCs # 0.0 /100WBC 06/29/22 22:44 Sodium 144 mmol/L (136-145) 06/29/22 22:44 Potassium 2.9 mmol/L (3.5-5.1) L 06/29/22 22:44 Chloride 105 mmol/L (98-107) 06/29/22 22:44 Carbon Dioxide 28 mmol/L (22-29) 06/29/22 22:44 Anion Gap 13.9 (5-19) 06/29/22 22:44 BUN 16 mg/dL (8-23) 06/29/22 22:44 Creatinine 1.1 mg/dL (0.5-0.9) H 06/29/22 22:44 GFR Calculation Not Reportable 06/29/22 22:44 Glucose 116 mg/dL (65-115) H 06/29/22 22:44 POC Glucose 139 mg/dL (70-110) H 06/29/22 22:41 Calculated Osmolality 300 mOsm/kg (285-295) H 06/29/22 22:44 Calcium 10.2 mg/dL (8.5-10.5) 06/29/22 22:44 Magnesium 2.1 mg/dL (1.7-2.3) 06/29/22 22:44 Total Bilirubin 0.7 mg/dL (0.15-1.2) 06/29/22 22:44 AST 17 U/L (0-32) 06/29/22 22:44 ALT 13 U/L (0-33) 06/29/22 22:44 Alkaline Phosphatase 136 IU/L (35-105) H 06/29/22 22:44 Total Protein 6.0 g/dL (6.6-8.7) L 06/29/22 22:44 Albumin 3.6 g/dL (3.5-5.2) 06/29/22 22:44 Globulin 2.4 g/dL (1.3-4.6) 06/29/22 22:44 Urine Color Yellow (Yellow) 06/30/22 01:51 Urine Appearance Clear (CLEAR) 06/30/22 01:51 Urine pH 5 (5-7) 06/30/22 01:51 Ur Specific [place] 1.020 (1.005-1.030) 06/30/22 01:51 Urine Protein 2+ (Negative) H 06/30/22 01:51 Urine Glucose (UA) Norm (Normal) 06/30/22 01:51 Urine Ketones Negative (Negative) 06/30/22 01:51 Urine Blood Neg (Negative) 06/30/22 01:51 Urine Nitrate Negative (Negative) 06/30/22 01:51 Urine Bilirubin 1+ (Negative) H 06/30/22 01:51 Urine Urobilinogen Neg mg/dL (Negative) 06/30/22 01:51 Ur Leukocyte Esterase Negative (Negative) 06/30/22 01:51 Urine RBC 0-4 /hpf (0-2) H 06/30/22 01:51 Urine WBC 0-4 /hpf (0-5) H 06/30/22 01:51 Ur Squamous Epith Cells 0-4 /hpf (0-5) H 06/30/22 01:51 Calcium Oxalate Crystal 0-4 /hpf H 06/30/22 01:51 Amorphous Sediment Not Reportable 06/30/22 01:51 Urine Bacteria Trace /hpf (NONE) 06/30/22 01:51 Urine Mucus Trace /hpf 06/30/22 01:51 Discharge Plan Discharge Patient Disposition: Home Clinical Impression: Altered mental status, Encephalopathy, hypertensive Condition: Stable Prescriptions: No Action carvedilol 25 mg Tablet 25 mg PO BID@0900,2100 Qty: 180 0RF clonidine HCl 0.1 mg Tablet 0.1 mg PO BID Qty: 180 0RF isosorbide mononitrate 30 mg Tablet Extended Release 24 Hr 15 mg PO DAILY Qty: 90 0RF aspirin 81 mg Tablet,Delayed Release (Dr/Ec) 81 mg PO DAILY Qty: 90 0RF amlodipine 10 mg Tablet 10 mg PO DAILY Qty: 90 0RF atorvastatin 40 mg tablet 40 mg PO QPM Qty: 90 0RF nitroglycerin [Nitrostat] 0.4 mg Tablet, Sublingual 0.4 mg SUBLINGUAL Q5M PRN (Reason: Chest Pain) Rx Instructions: do not exceed 3 doses per episode Discharge Orders: Discharge ED (Routine); Ordered 06/30/22 Ordered By: Ricky Wade Referrals: Silvia Peng MD [Primary Care Provider] - 1-3 days Patient Instructions: Hypertension (ED), Altered Mental Status (ED) Activity Restrictions/Additional Instructions: Return for fever greater than 100, worsening episodes of mental status changes, inability to control blood pressure at home, repeated episodes of syncope or passing out, weakness or other concerning symptoms. Take your medications as directed. Coding Level of Care Code ED [employer] Operator for [place] Fwd Exam Comprehensive
[2022-06-30 05:30] VITALS: BP 129/71; PULSE 72; RESP 16; TEMP 36.7; O2SAT 97
== END 2022-06-30 05:31 | disposition home or self-care (01) ==
PROVIDERS: Emergency Provider Emergency Medicine; PCP Family Medicine
DX: R41.82 Altered mental status, unspecified (principal); I67.4 Hypertensive encephalopathy; Z79.82 Long term (current) use of aspirin; Z87.891 Personal history of nicotine dependence; I25.10 Atherosclerotic heart disease of native coronary artery without angina pectoris; E78.5 Hyperlipidemia, unspecified; I10 Essential (primary) hypertension
CPT/HCPCS: 36416; 71045; 80053; 81001; 82962; 83735; 85025; 96374; 96375; 99284; J3490; J7030

== ENCOUNTER 2022-07-05 14:50 | Inpatient (IN) | payer MEDICARE, OTHER, SELFPAY ==
[2022-07-05] VITALS (58 sets, daily range): BP systolic 151–250; BP diastolic 65–132; PULSE 52–102; RESP 10–28; TEMP 36.4–36.7; O2SAT 86–100; BMI 23.3
--- NOTE | 2022-07-05 14:51 | ED_ITS ---
HPI - Altered Mental Status General: Chief Complaint: Altered Mental Status Stated Complaint: AMS X3 days Time Seen by Provider: 07/05/22 14:50 Limitations: altered mental status History of Present Illness: Ms. 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 Onset of symptoms was 3 days ago. She reports that she has chronic falls. She denies many symptoms end reliability is significant questionable given underlying medical history. Denies focal neurodeficits. History otherwise limited by mental status. Review of Systems General: Reports: ROS unobtainable due to mental status PFSH ED PFSH: Medical History Abdominal aortic aneurysm (AAA) 3.0 cm to 5.0 cm in diameter in female Abnormal EKG 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 by CTA Jan 2018 Arnold-Chiari malformation, type I Atrophy of left kidney Coronary artery disease Esophageal thickening incidental finding on CT 03/2021 High risk medication use Hyperlipidemia Hypertension, essential Mesenteric artery stenosis Obstructive sleep apnea Peripheral vascular disease multiple vessels Polypharmacy Primary osteoarthritis of knees, bilateral Seropositive rheumatoid arthritis of multiple joints Thyroid nodule incidental indeterminant finding on CT 03/2021 Uncontrolled hypertension UTI (urinary tract infection) Surgical History H/O hysterectomy with oophorectomy History of appendectomy History of total right knee replacement (TKR) S/P carpal tunnel release right, Dr. Hazel, 2014 S/P cataract extraction and insertion of intraocular lens bilateral S/P cervical spinal fusion ACDFF Dr. Dawn 12/07/2015 S/P right coronary artery (RCA) stent placement (~05/2019) Family History Mother CAD (coronary artery disease) Father No problems noted. Other Cancer Rheumatoid arthritis Denies family history of Chronic kidney disease (CKD) Systemic lupus erythematosus (SLE) in adult Lung disease Hypertension Social History Smoking and tobacco status: former smoker Alcohol intake: never Marital status: Current occupational status: retired History of recent travel: No (1/10/20) Physical Exam Const: COMMON NORMALS: alert GENERAL APPEARANCE: cooperative and well developed HENMT: COMMON NORMALS: normocephalic and atraumatic HEAD & SCALP: normocephalic and atraumatic THROAT: posterior oropharynx normal Eye: COMMON NORMALS: conjunctivae normal CONJUNCTIVA: Yes conjunctivae normal SCLERA: sclerae normal Neck/C-Spine: COMMON NORMALS: supple GENERAL: Yes trachea midline Resp: COMMON NORMALS: clear to auscultation bilaterally EFFORT & INSPECTION: Yes able to speak in complete sentences AUSCULTATION: clear to auscultation bilaterally Cardio: COMMON NORMALS: regular rate and regular rhythm RATE: regular rate RHYTHM: regular rhythm GI: COMMON NORMALS: Soft to palpation PALPATION: Yes Soft to palpation and No Tenderness to palpation present (GI) Extremity: GENERAL: Yes normal exam except as noted and No edema Neuro: COMMON NORMALS: CN's II-XII intact bilaterally, moves all extremities, no focal motor deficits and no sensory deficits noted SENSORIUM/ORIENTATION: Yes alert and Yes Orientation impaired Psych: MEMORY/COGNITION: Yes memory grossly impaired and Yes cognition grossly impaired Course ED course: - Patient was seen and evaluated by me at bedside - Patient placed on cardiac monitors, IV access obtained - Initial evaluation notable for exam as above. Patient confused, no focal neurologic deficits appreciated. - Labs and xrays personally interpreted by me EKG shows sinus rhythm with nonspecific ST segment abnormalities. No STEMI -Antihypertensive given - Labs notable for no leukocytosis, normal hemoglobin. No acute metabolic abnormality to explain symptoms or delta troponin negative. Urinalysis not concerning for urinary tract infection. - Imaging notable for chest x-ray without lobar consolidation or pneumothorax. Head CT negative for acute intracranial hemorrhage. - Upon serial reexamination after treatment the patient was similar though required additional antihypertensives - Based on patient history, evaluation, and testing as interpreted the most likely cause of the patient's condition is altered mental status perhaps related to hypertensive emergency - The results of ED evaluation were discussed with the patient including plan for admission due to requirement for level of care not available if discharged to prevent significant worsening/deterioration. - Admitting service was contacted and Dr Johns with the hospitalist service agreed to admit the patient - Patient was admitted without further deterioration or significant events. Note: Click bubbles or prepopulated romero in note writing are used for assistance with data collection and billing and are inherently more limited than narrative and other text portions of this note. Please use narrative for additional clinical history and defer to narrative/free test for any case of contradictory information. If information appears in only free text or click bubble it should be considered present or absent as reported. Please contact note script writer for clarifications of clinical information or contradictory information. MDM is a brief summary, contradictory or erroneous seeming information should be clarified and full note should be reviewed. Vital Signs: Vital signs: Vital Signs Temperature 97.8 F 07/08/22 15:04 Pulse Rate 59 L 07/08/22 15:04 Respiratory Rate 14 07/08/22 15:04 Blood Pressure 110/68 07/08/22 15:04 Pulse Oximetry 96 07/08/22 15:04 Oxygen Delivery Me thod 07/08/22 09:03 MDM - Altered Mental Status Medical Decision Making 72-year-old lady with recurrent ED visits for altered mental status presenting with altered mental status. Possibly related to high blood pressure. Admitted for further management. Medical Records I reviewed the patient's medical records. Lab Data I reviewed the patient's lab results. : 07/07/22 06:25 07/07/22 06:25 Radiology Impressions Chest X-Ray 07/05/22 15:12 Impression: Atherosclerosis. Head CT 07/05/22 15:12 IMPRESSION: Negative for intracranial hemorrhage or mass effect. Venous Duplex 07/06/22 17:03 IMPRESSION: 1. No evidence of acute right lower extremity DVT. 2. No evidence of acute left lower extremity DVT. Chest CTA 07/07/22 17:03 IMPRESSION: 1. No pulmonary emboli or other acute cardiopulmonary pathology identified. 2. There is a 2.3 cm thyroid nodule. Follow-up non-emergent thyroid ultrasound is recommended. COMMENTS: Consistent with the [employer]'s Incidental Findings Committee white paper (J Am Missy Radiol 2015): In patients aged 35 years and older with an incidental thyroid nodule equal to or greater than 1.[address], MRI or extrathyroidal US, further evaluation with dedicated thyroid US is recommended for patients with normal life expectancy and without comorbidities. For smaller nodules without suspicious features, no further evaluation or follow up is recommended. Laboratory Results WBC 4.4 10^3/uL (4.0-10.0) 07/05/22 15:15 RBC 4.43 10^6/uL (4.1-5.3) 07/05/22 15:15 Hgb 12.0 g/dL (11.5-15.3) 07/05/22 15:15 Hct 38.1 % (37.0-47.0) 07/05/22 15:15 MCV 86.0 fl (81-99) 07/05/22 15:15 MCH 27.1 pg (28.0-34.0) L 07/05/22 15:15 MCHC 31.5 g/dL (30.0-36.0) 07/05/22 15:15 RDW 13.7 % (12.1-15.1) 07/05/22 15:15 Plt Count 177 10^3/cmm (130-400) 07/05/22 15:15 MPV 11.6 fL (7.4-10.4) H 07/05/22 15:15 Neut % (Auto) 65.7 % 07/05/22 15:15 Lymph % (Auto) 23.0 % 07/05/22 15:15 [place] % (Auto) 9.7 % 07/05/22 15:15 Eos % (Auto) 0.5 % 07/05/22 15:15 Baso % (Auto) 0.9 % 07/05/22 15:15 Neut # (Auto) 2.91 10^3/uL (1.8-7.7) 07/05/22 15:15 Lymph # (Auto) 1.0 10^3/uL (0.8-4.8) 07/05/22 15:15 [place] # (Auto) 0.4 10^3/uL (0.2-0.9) 07/05/22 15:15 Eos # (Auto) 0.0 10^3/uL (0.0-0.8) 07/05/22 15:15 Baso # (Auto) 0.0 10^3/uL (0.0-0.1) 07/05/22 15:15 Nucleated RBC % (auto) 0 % 07/05/22 15:15 Nucleated RBCs # 0.0 /100WBC 07/05/22 15:15 Sodium 141 mmol/L (136-145) 07/05/22 15:15 Potassium 3.5 mmol/L (3.5-5.1) 07/05/22 15:15 Chloride 103 mmol/L (98-107) 07/05/22 15:15 Carbon Dioxide 23 mmol/L (22-29) 07/05/22 15:15 Anion Gap 18.5 (5-19) 07/05/22 15:15 BUN 10 mg/dL (8-23) 07/05/22 15:15 Creatinine 0.8 mg/dL (0.5-0.9) 07/05/22 15:15 GFR Calculation Not Reportable 07/05/22 15:15 Glucose 91 mg/dL (65-115) 07/05/22 15:15 Calculated Osmolality 291 mOsm/kg (285-295) 07/05/22 15:15 Calcium 9.6 mg/dL (8.5-10.5) 07/05/22 15:15 Magnesium 2.2 mg/dL (1.7-2.3) 07/05/22 15:15 Total Bilirubin 0.6 mg/dL (0.15-1.2) 07/05/22 15:15 AST 22 U/L (0-32) 07/05/22 15:15 ALT 13 U/L (0-33) 07/05/22 15:15 Alkaline Phosphatase 120 IU/L (35-105) H 07/05/22 15:15 Troponin T Baseline 17 ng/L (0-10) H 07/05/22 15:15 Troponin T 120 Minute 17.29 ng/L (0-10) H 07/05/22 17:08 Delta Troponin T 0.29 ABS# (0-10) 07/05/22 17:08 Troponin T Hi Sens 6Hr 19.17 ng/L (0-10) H 07/05/22 20:55 Troponin T Hi Sens 6Hr Delta 2.17 ng/L (0-12) 07/05/22 20:55 Total Protein 5.9 g/dL (6.6-8.7) L 07/05/22 15:15 Albumin 3.7 g/dL (3.5-5.2) 07/05/22 15:15 Globulin 2.2 g/dL (1.3-4.6) 07/05/22 15:15 TSH 0.89 uIU/mL (0.27-4.20) 07/05/22 15:15 Urine Color Yellow (Yellow) 07/05/22 15:48 Urine Appearance Clear (CLEAR) 07/05/22 15:48 Urine pH 6.5 (5-7) 07/05/22 15:48 Ur Specific [place] 1.010 (1.005-1.030) 07/05/22 15:48 Urine Protein Neg (Negative) 07/05/22 15:48 Urine Glucose (UA) Norm (Normal) 07/05/22 15:48 Urine Ketones Negative (Negative) 07/05/22 15:48 Urine Blood Neg (Negative) 07/05/22 15:48 Urine Nitrate Negative (Negative) 07/05/22 15:48 Urine Bilirubin Neg (Negative) 07/05/22 15:48 Urine Urobilinogen Norm mg/dL (Negative) 07/05/22 15:48 Ur Leukocyte Esterase Negative (Negative) 07/05/22 15:48 Discharge Plan Discharge Patient Disposition: Admitted As Inpatient Admit Provider: Aminata Johns Clinical Impression: Uncontrolled hypertension, Encephalopathy Condition: Stable Discharge Diet: Cardiac Discharge Activity: Increase activity as tolerated and As per PT/OT instructions Coding Level of Care Code ED Manager Community for Loulou Borrero
--- NOTE | 2022-07-05 15:12 | CTR_ITS ---
PROCEDURE INFORMATION: Exam: CT Head Without Contrast Exam date and time: 07/05/2022 3:32 PM Age: 72 years old Clinical indication: Altered mental status/memory loss; Confusion or disorientation; Additional info: AMS TECHNIQUE: Imaging protocol: Computed tomography of the head without contrast. Radiation optimization: All CT scans at this facility use at least one of these dose optimization techniques: automated exposure control; mA and/or kV adjustment per patient size (includes targeted exams where dose is matched to clinical indication); or iterative reconstruction. COMPARISON: CT head wo con* [id number] 06/01/2022 9:13 PM RADIATION DOSE METRICS: Total DLP (mGy-cm): 1039.98 FINDINGS: Brain: Large amount diffuse white matter disease likely reflecting chronic microvascular ischemic changes. Cerebral ventricles: No ventriculomegaly. Paranasal sinuses: Visualized sinuses are unremarkable. No fluid levels. Mastoid air cells: Visualized mastoid air cells are well aerated. Bones/joints: Unremarkable. No acute fracture. Soft tissues: Unremarkable. CT/CT head wo con* [id number] IMPRESSION: Negative for intracranial hemorrhage or mass effect.
--- NOTE | 2022-07-05 15:12 | XR_ITS ---
WS: [id number] Portable AP upright chest, 07/05/2022 Clinical Data: ams Comparison: Portable chest, 06/29/2022. Findings: No nodules, masses or effusions are seen. The heart is normal. The pulmonary vascularity is not increased. No pneumonia or pneumothorax is seen. The aortic arch and descending thoracic aorta s how calcification and tortuosity. There are monitor leads on the chest wall. The patient has an anter ior cervical disc fusion. XR/XR chest 1V portable [id number] Impression: Atherosclerosis.
--- NOTE | 2022-07-05 15:27 | ECG_ITS ---
[facility] Test Date: 2022-07-05 Pat Name: Rosie Martinez Department: Room: Gender: Female International Sourcing Manager: : 1950 Requested By: Hank Garcia Order Number: [id number] Carlos MD: Karime Solano M.D. Measurements Intervals [place] Rate: 63 P: 70 OK: 153 QRS: -9 QRSD: 92 T: 40 QT: 423 QTc: 433 Interpretive Statements SINUS RHYTHM WITH OCCASIONAL SUPRAVENTRICULAR PREMATURE COMPLEXES NONSPECIFIC T-WAVE ABNORMALITY Compared to ECG 06/14/2022 20:36:42 T-wave abnormality now present Electronically Signed On 07-06-2022 19:15:34 CDT by Karime Solano M.D. [id number]
[2022-07-05 15:54] LABS: Basophils % 0.9 %; Eosinophils % 0.5 %; Hematocrit 38.1 % (37.0-47.0); Mean Corpuscular HGB Conc 31.5 g/dL (30.0-36.0); Mean Corpuscular Hemoglobin 27.1 pg (28.0-34.0); Mean Platelet Volume 11.6 fL (7.4-10.4); Monocytes # 0.4 10^3/uL (0.2-0.9); Monocytes % 9.7 %; Neutrophils # 2.91 10^3/uL (1.8-7.7); Neutrophils % 65.7 %; Nucleated Red Blood Cells % 0 %; Platelet Count 177 10^3/cmm (130-400); Red Blood Count 4.43 10^6/uL (4.1-5.3); Red Cell Distribution Width 13.7 % (12.1-15.1); White Blood Count 4.4 10^3/uL (4.0-10.0)
[2022-07-05 16:04] LABS: Add Urine Microscopic? NO; Charge for UA Resulting for Rev
[2022-07-05 16:17] LABS: Bilirubin Urine Neg (Negative); Blood Urine Neg (Negative); Glucose Urine UA Norm (Normal); Ketones Urine Negative (Negative); Leukocyte Esterase Urine Negative (Negative); Nitrate Urine Negative (Negative); Protein Urine Neg (Negative); Urine Appearance Clear (CLEAR); Urine Color Yellow (Yellow); Urobilinogen Urine Norm (Negative); pH Urine 6.5 (5-7)
[2022-07-05 16:26] LABS: Slide Review Slide Review Perform
[2022-07-05 16:34] LABS: Troponin(5th) Baseline 17 ng/L (0-10)
[2022-07-05 16:35] LABS: Alanine Aminotransferase 13 U/L (0-33); Albumin Level 3.7 g/dL (3.5-5.2); Alkaline Phosphatase 120 IU/L (35-105); Anion Gap 18.5 (5-19); Aspartate Amino Transferase 22 U/L (0-32); Blood Urea Nitrogen 10 mg/dL (8-23); Calcium 9.6 mg/dL (8.5-10.5); Carbon Dioxide 23 mmol/L (22-29); Chloride 103 mmol/L (98-107); Globulin 2.2 g/dL (1.3-4.6); Glucose 91 mg/dL (65-115); Magnesium 2.2 mg/dL (1.7-2.3); Osmolality Calculated 291 mOsm/kg (285-295); Potassium 3.5 mmol/L (3.5-5.1); Sodium 141 mmol/L (136-145); Thyroid Stimulating Hormone 0.89 uIU/mL (0.27-4.20); Total Bilirubin 0.6 mg/dL (0.15-1.2); Total Protein 5.9 g/dL (6.6-8.7)
--- NOTE | 2022-07-05 16:44 | PC.PHAR ---
pt unable to verify - attempted to call pt Chente Martinez, did not answer
[2022-07-05] MEDS: hyDRALAzine 20 mg/mL INJ 1 mL 10 MG IVP (17:01)
[2022-07-05] MEDS: cloNIDine 0.1 mg Tablet PO (17:01)
[2022-07-05 17:50] LABS: Troponin 5 2HR 17.29 ng/L (0-10)
[2022-07-05 17:51] LABS: Troponin 5 2HR Delta 0.29 ABS# (0-10)
[2022-07-05] MEDS: carvedilol 25 mg Tablet PO (18:41)
[2022-07-05] MEDS: amlodipine 10 mg Tablet PO (18:41)
--- NOTE | 2022-07-05 19:03 | PC.NURSE ---
Report given to KASANDRA Yu
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
--- NOTE | 2022-07-05 21:44 | ECG_ITS ---
[facility] Test Date: 2022-07-05 Pat Name: Rosie Martinez Department: Room: 255 Gender: Female Direct Service Provider: : 1950 Requested By: Hank Garcia Order Number: [id number] Carlos MD: Karime Solano M.D. Measurements Intervals [place] Rate: 58 P: 72 NH: 158 QRS: 15 QRSD: 85 T: 228 QT: 449 QTc: 442 Interpretive Statements SINUS BRADYCARDIA ST DEVIATION AND MODERATE T-WAVE ABNORMALITY, CONSIDER ANTEROLATERAL ISCHEMIA [-0.1+ mV T WAVE IN V3-V6] Compared to ECG 07/05/2022 15:27:12 Possible ischemia now present Sinus rhythm no longer present T-wave abnormality still present Electronically Signed On 07-06-2022 19:21:33 CDT by Karime Solano M.D. [id number]
[2022-07-05 21:55] LABS: Troponin 5 6HR 19.17 ng/L (0-10)
[2022-07-05 21:56] LABS: Troponin 5 6HR Delta 2.17 ng/L (0-12)
[2022-07-06] VITALS: BP 170/73; PULSE 62; RESP 20; O2SAT 97
--- NOTE | 2022-07-06 03:50 | NUR.SHIFT ---
Patient is in bed resting, Bed alarm is on, IV resecured, bed is low and locked, call light in reach, night light is on, patient had not needs during admission assessment, A&O x's 1 to self, Patient is on tele, tele strip read and sent to Dr yeimy Elam, strip is in chart
[2022-07-06 08:00] VITALS: BP 188/73; PULSE 51; RESP 16; TEMP 36.3; O2SAT 92
--- NOTE | 2022-07-06 10:22 | USCV_ITS ---
Michelle Rosie Age: 72 Gender: F : 1950 Exam Date: 07/06/2022 11:02 Ordering Phys: Tamera Jeffers MD Technologist: Emely Jean-Baptiste [place] [facility] [place] BP: 188 / 73 HR: 57 Rhythm: Sinus Technical Quality: Adequate MEASUREMENTS (Male / Female) Normal Values 2D ECHO LV Diastolic Diameter PLAX 4.3 cm 4.2 - 5.9 / 3.9 - 5.3 cm LV Systolic Diameter PLAX 2.2 cm IVS Diastolic Thickness 1.5 cm 0.6 - 1.0 / 0.6 - 0.9 cm IVS Systolic Thickness 1.6 cm LVPW Diastolic Thickness 1.2 cm 0.6 - 1.0 / 0.6 - 0.9 cm LVPW Systolic Thickness 1.6 cm LVOT Diameter 2.0 cm LV Ejection Fraction 2D Teich 79.9 % LV Ejection Fraction MOD 2C 75.3 % LV Ejection Fraction 2C AL 74.0 % LA Diameter 2.8 cm LA Width 3.0 cm LA Height 5.3 cm RA Width 3.8 cm RA Height 4.5 cm Aorta at Sinotubular Diameter 2.1 cm IVC Diameter 2.1 cm M-MODE Aortic Annulus Diameter 3.4 cm LA Ao Ratio MM 0.8 MV E Point Septal Separation 0.5 cm DOPPLER AV Peak Velocity 136.0 cm/s LVOT Peak Velocity 116.0 cm/s AV Area Cont Eq vti 3.0 cm squared AV Area Cont Eq pk 2.7 cm squared MV Peak Velocity 109.0 cm/s MV Area PHT 3.2 cm squared Mitral E to A Ratio 0.6 MV E' Velocity 31.5 cm/s Mitral E to MV E' Ratio 12.5 Mitral E to LV E' Lateral Ratio 10.1 Mitral E to LV E' Septal Ratio 16.4 TR Peak Velocity 268.4 cm/s TR Peak Gradient 28.8 mmHg TR Mean Velocity 235.2 cm/s TR Mean Gradient 24.7 mmHg TR Velocity Time Integral 93.1 cm TV Peak E Velocity 52.0 cm/s Right Atrial Pressure 3.0 mmHg Pulmonary Artery Systolic Pressu 31.8 mmHg PV Peak Velocity 92.0 cm/s RV Acceleration Time 0.1 s RV Ejection Time 0.3 s RV AcT/ET 0.4 FINDINGS Left Ventricle Normal left ventricular size and systolic function, EF 74 %. Mild left ventricular hypertrophy. No regional wall motion abnormalities. Grade I/IV diastolic dysfunction (abnormal relaxation filling pattern), normal to mildly elevated filling pressures. Right Ventricle The right ventricle is normal in size and function. Right Atrium The right atrium is normal in size. Left Atrium Mildly increased left atrial size. Mitral Valve Mild mitral valve regurgitation. Aortic Valve Thickened aortic valve. Trace aortic valve regurgitation. Tricuspid Valve Mild tricuspid valve regurgitation. Pulmonic Valve No gross abnormalities noted Pericardium Normal pericardium without effusion. Aorta Plaque seen in the ascending aorta. IVC The inferior vena cava pulmonary and hepatic veins appear normal. CONCLUSIONS Normal left ventricular size and systolic function, EF 74 %. Mild left ventricular hypertrophy. No regional wall motion abnormalities. Grade I/IV diastolic dysfunction (abnormal relaxation filling pattern), normal to mildly elevated filling pressures. Mildly increased left atrial size. Mild mitral valve regurgitation. Thickened aortic valve. Trace aortic valve regurgitation. Mild tricuspid valve regurgitation. Estimated pulmonary artery peak systolic pressure 32 mmHg There are no intracardiac masses. There is no pericardial effusion. No similar previous studies are available for comparison. Dr Karime Solano MD FACC (Electronically Signed) Final Date: 06 July 2022 11:58 S
[2022-07-06 11:13] VITALS: PULSE 59; RESP 17; O2SAT 96
--- NOTE | 2022-07-06 11:31 | PM.PN ---
Subjective Subjective: Sinus pauses noted, I have requested Dr. Solano to evaluate her at the bedside I would not use clonidine, for her hypertension start amlodipine As per the patient does not like to take any medication at home, she has had recurrent falls, Vitals/I&O/Wt Last Vital Signs Temp 97.3 F L 07/06/22 08:00 Pulse 59 L 07/06/22 11:13 Resp 17 07/06/22 11:13 BP 188/73 07/06/22 08:00 Pulse Ox 96 07/06/22 11:13 O2 Del Method 07/06/22 11:13 07/05/22 07/06/22 07/06/22 22:59 06:59 14:59 Intake Total 300 / 300 Balance 300 / 300 Weight last 48 hrs Weight 63.503 kg Physical Exam Narrative: Patient is awake and alert Bradycardia Hypertensive Nonfocal neuro exam Satting well on room air Short attention span Akathisia present Inner restlessness Nonfocal neuro exam Abdomen soft Mild edema of legs Data : 07/05/22 15:15 07/05/22 15:15 Micro: Microbiology 07/05/22 16:08 Blood Culture - Preliminary Blood SPECIMEN COLLECTED 07/05/22 16:00 Blood Culture - Preliminary Blood SPECIMEN COLLECTED A&P Assessment and plan (1) Recurrent falls: Status: Acute (2) Syncope: Status: Acute Plan Recurrent syncopal events at home Concern for bradycardia, sinus pauses noted overnight Avoid clonidine I would add lisinopril and amlodipine for hypertension Her short attention span and in restlessness is not new, she has had this kind of behavior for a long time this was confirmed with her admitting physician and her No strokelike features Currently on room air Requested Dr. 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
[2022-07-06 12:00] VITALS: BP 174/74; PULSE 54; RESP 17; TEMP 36.8; O2SAT 95
[2022-07-06] MEDS: amlodipine 10 mg Tablet PO (12:20)
[2022-07-06] MEDS: lisinopril 5 mg Tablet PO (12:21)
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
[2022-07-06 14:41] LABS: D Dimer 2.52 ug/mIFEU (0-0.59)
[2022-07-06 15:02] LABS: Vitamin B12 1026 pg/mL (232-1245)
[2022-07-06 15:30] VITALS: BP 127/65; PULSE 63; RESP 17; TEMP 36.6; O2SAT 95
--- NOTE | 2022-07-06 17:03 | USR_ITS ---
PROCEDURE INFORMATION: Exam: US Duplex Lower Extremity Veins, Bilateral Exam date and time: 07/06/2022 10:11 PM Age: 72 years old Clinical indication: Swelling (edema) of limb and other: Redness; Lower extremity, right; Additional info: Dvt. Bilateral leg redness. TECHNIQUE: Imaging protocol: Real-time Duplex ultrasound of the bilateral extremities with 2-D segura scale, color Doppler flow and spectral waveform analysis with image documentation. Complete exam focused on the bilateral lower extremity veins. COMPARISON: No relevant prior studies available. FINDINGS: Evaluated veins include bilateral common femoral, proximal profunda femoral, proximal/mid/distal superficial femoral, popliteal, posterior tibial, peroneal, and proximal greater saphenous veins. Right leg: No visible clot in the included veins. The included veins appear normally compressible. Duplex Doppler evaluation demonstrates flow in the evaluated veins. Left leg: No visible clot in the included veins. The included veins appear normally compressible. Duplex Doppler evaluation demonstrates flow in the evaluated veins. US/[place] [id number] IMPRESSION: 1. No evidence of acute right lower extremity DVT. 2. No evidence of acute left lower extremity DVT.
[2022-07-06 20:00] VITALS: BP 172/73; PULSE 64; RESP 17; TEMP 36.3; O2SAT 99
[2022-07-07] VITALS: BP 194/82; PULSE 82; RESP 16; TEMP 36.7; O2SAT 98
[2022-07-07 04:00] VITALS: BP 194/81; PULSE 66; RESP 16; TEMP 36.6; O2SAT 98
[2022-07-07 07:05] LABS: Basophils % 0.9 %; Eosinophils % 0.4 %; Hematocrit 37.4 % (37.0-47.0); Hemoglobin 11.7 g/dL (11.5-15.3); Lymphocytes # 1.2 10^3/uL (0.8-4.8); Lymphocytes % 25.4 %; Mean Corpuscular HGB Conc 31.3 g/dL (30.0-36.0); Mean Corpuscular Volume 86.2 fl (81-99); Mean Platelet Volume 11.2 fL (7.4-10.4); Monocytes # 0.5 10^3/uL (0.2-0.9); Monocytes % 9.8 %; Neutrophils # 2.97 10^3/uL (1.8-7.7); Neutrophils % 63.3 %; Nucleated Red Blood Cells % 0 %; Platelet Count 227 10^3/cmm (130-400); Red Blood Count 4.34 10^6/uL (4.1-5.3); Red Cell Distribution Width 14.3 % (12.1-15.1); White Blood Count 4.7 10^3/uL (4.0-10.0)
[2022-07-07 07:45] LABS: Anion Gap 11.3 (5-19); Blood Urea Nitrogen 10 mg/dL (8-23); Calcium 9.8 mg/dL (8.5-10.5); Carbon Dioxide 24 mmol/L (22-29); Chloride 111 mmol/L (98-107); Glucose 97 mg/dL (65-115); Magnesium 2.2 mg/dL (1.7-2.3); Osmolality Calculated 295 mOsm/kg (285-295); Potassium 3.3 mmol/L (3.5-5.1); Sodium 143 mmol/L (136-145)
[2022-07-07 08:00] VITALS: BP 181/87; PULSE 65; PULSE 70; RESP 14; RESP 16; TEMP 36.5; O2SAT 97; O2SAT 98
--- NOTE | 2022-07-07 08:00 | USCV_ITS ---
Michelle Rosie Age: 72 Gender: F : 1950 Exam Date: 07/07/2022 07:28 Ordering Phys: Karime Solano MD ([email or web address]) Technologist: Jessica Villagran Exam Location: [facility] [place] Indication: Known RRA stent Aortic Velocity @ SMA (cm/s) 36.5 RIGHT KIDNEY LEFT KIDNEY Velocity (cm/s) Velocity (cm/s) Sys/Verde Sys/Verde Resistive Index Resistive Index 51.2 / 14.2 0.72 Proximal Renal Artery / 42.7 / 7.6 0.82 Mid Renal Artery / 35.1 / 5.7 0.84 Distal Renal Artery / 33.6 / 8.8 0.73 Hilar / 22.5 / 6.3 0.72 Upper Pole / 45.0 / 11.7 0.74 Mid Pole / 52.4 / 8.1 0.85 Lower Pole / 1.40 Renal Aortic Ratio Accleration Index (cm/sec2) 167.00 Hilar 185.00 Upper Pole 216.00 Mid Pole 156.00 Lower Pole 109.3 Kidney Length (mm) 58.5 FINDINGS Lt Kidney did not have enough flow to document Normal arterial Doppler flow velocities on the right side Elevated ressistive indicis on the right side Low acceleration indicis on the right side CONCLUSIONS 1. Normal kidney dimension on the right side with a contracted kidney on the left side 2. Normal renal -aortic ratios suggesting no significant renal artery stenosis, on the right side 3. Abnormal acceleration indices suggesting stenosis in the segmental arteries on the right side 4. No renal arterial flow was detected on the left side Dr Karime Solano MD [facility] (Electronically Signed) Final Date: 07 July 2022 18:41 S
--- NOTE | 2022-07-07 08:00 | USCV_ITS ---
Rosie Martinez Age: 72 Gender: F : 1950 Exam Date: 07/07/2022 07:11 Ordering Phys: Karime Solano MD ([email or web address]) Technologist: Exam Location: [facility] [place] Indication: Known AAA HISTORY: Known AAA Diameter (cm) AP x Transverse x Length Velocity (cm/s) Waveform Prox Aorta: 1.81 x 3.73 x 28.00 Mid Aorta: 3.41 x 3.66 x 37.20 Distal Aorta: 4.27 x 4.87 x 56.10 Right Iliac Prox: 1.96 x x 161.10 Left Iliac Prox: 1.39 x 2.12 x 102.90 Stent Prox Landing x x Aneurysmal Sac Max x x Lt Lat Sac Dim Rt Lat Sac Dim Stent Dist Landing x x Right Iliac Stent x x Left Iliac Stent x x Right Renal Art Left Renal Art FINDINGS: Mild to moderate diffuse plaques in the abdominal aorta. Diffuse aneurysmal dilatation of the mid and distal abdominal aorta Aneurysmal dilatation of the right common iliac artery CONCLUSIONS 1. Dumbbell-shaped aneurysm of the mid and distal abdominal aorta, measuring 3.4 x 3.6 is proximally and a 4.3 x 4.9 distally. 2. Right common iliac artery aneurysm measuring 3.1 x 3.2 cm 3. Mild to moderate diffuse plaques in the abdominal aorta and in the proximal common iliac arteries 4. Ectatic left common iliac artery Compared to the study from 11/09/2020, there is significant increase in size of the abdominal aortic aneurysm and the right common iliac artery aneurysm Dr Karime Solano MD [facility] (Electronically Signed) Final Date: 07 July 2022 10:23 S
[2022-07-07] MEDS: iohexol 350 mg/mL 100 mL Btl IV (08:25)
--- NOTE | 2022-07-07 08:30 | P.PN_ITS ---
Subjective Subjective: The patient had the abdominal aortic duplex function. The aneurysm appears to be enlarging in size. She has no specific symptoms pertaining to this. Has not had any significant pauses or bradycardia on the monitor. The blood pressure was found to be elevated. Medications: Medication Review Details: Current Medications Acetaminophen (Acetaminophen 500 Mg Tablet) 500 mg PO Q4H PRN PRN Reason: fever Albuterol/Ipratropium (Ipratropium-Albuterol 3 Ml Neb) 3 ml INHALATION Q6H PRN PRN Reason: SHORTNESS OF BREATH Amlodipine Besylate (Amlodipine 10 Mg Tablet) 10 mg PO DAILY [facility] Last Admin: 07/06/22 12:20 Dose: 10 mg Enoxaparin Sodium (Enoxaparin 40 Mg/0.4 Ml Syringe) 40 mg SUBCUT Q24H [facility] Last Admin: 07/06/22 18:00 Dose: 40 mg Lisinopril (Lisinopril 5 Mg Tablet) 5 mg PO DAILY [facility] Last Admin: 07/06/22 12:21 Dose: 5 mg Ondansetron HCl (Ondansetron 2 Mg/Ml Sdv 2 Ml) 4 mg IVP Q6H PRN PRN Reason: NAUSEA AND VOMITING Vitals/I&O/Wt Last Vital Signs Temp 97.8 F 07/07/22 04:00 Pulse 66 07/07/22 04:00 Resp 16 07/07/22 04:00 BP 194/81 07/07/22 04:00 Pulse Ox 98 07/07/22 04:00 O2 Del Method 07/06/22 15:30 07/06/22 07/07/22 07/07/22 22:59 06:59 14:59 Intake Total 240 / 280 Balance 240 / 280 Weight last 48 hrs Weight 140 lb Physical Exam Narrative: GENERAL: The patient is alert but disoriented to time and place. [place] HEENT: No significant pallor, icterus or lymphadenopathy.Oral cavity: There are no mucous membrane lesions. NECK: Trachea appears to be central. No masses noted. No JVD or thyromegaly appreciated. RESPIRATORY: Chest is symmetrical. No intercostals muscle retraction or any accessory muscle activation. There is no chest wall tenderness. Breath sounds are heard bilaterally. No rales or rhonchi heard. No evidence of any consolidation. BREASTS: Deferred. HEART: The heart sounds are normal. No S3 or S4. No significant murmurs. No pericardial rub ABDOMEN: No vessel pulsations or distention. No tenderness. No organomegaly appreciated. Abdominal bruit present. Bowel sounds are normally heard. : Deferred. RECTAL: Deferred. LYMPHATIC: No lymphadenopathy noted in the neck. EXTREMITIES: No edema or cyanosis. No clubbing. Peripheral pulses are palpable but weak bilaterally. MUSCULOSKELETAL: No acute joint deformities or swelling SKIN: There are no significant rashes or ecchymosis NEUROPSYCHIATRIC: The patient is alert and oriented x3. Appears to be in a good mood. No tremors or rigidity noted. Data : 07/07/22 06:25 07/07/22 06:25 Other Labs: Laboratory Last Values WBC 4.7 10^3/uL (4.0-10.0) 07/07/22 06:25 RBC 4.34 10^6/uL (4.1-5.3) 07/07/22 06:25 Hgb 11.7 g/dL (11.5-15.3) 07/07/22 06:25 Hct 37.4 % (37.0-47.0) 07/07/22 06:25 MCV 86.2 fl (81-99) 07/07/22 06:25 MCH 27.0 pg (28.0-34.0) L 07/07/22 06:25 MCHC 31.3 g/dL (30.0-36.0) 07/07/22 06:25 RDW 14.3 % (12.1-15.1) 07/07/22 06:25 Plt Count 227 10^3/cmm (130-400) 07/07/22 06:25 MPV 11.2 fL (7.4-10.4) H 07/07/22 06:25 Neut % (Auto) 63.3 % 07/07/22 06:25 Lymph % (Auto) 25.4 % 07/07/22 06:25 [place] % (Auto) 9.8 % 07/07/22 06:25 Eos % (Auto) 0.4 % 07/07/22 06:25 Baso % (Auto) 0.9 % 07/07/22 06:25 Neut # (Auto) 2.97 10^3/uL (1.8-7.7) 07/07/22 06:25 Lymph # (Auto) 1.2 10^3/uL (0.8-4.8) 07/07/22 06:25 [place] # (Auto) 0.5 10^3/uL (0.2-0.9) 07/07/22 06:25 Eos # (Auto) 0.0 10^3/uL (0.0-0.8) 07/07/22 06:25 Baso # (Auto) 0.0 10^3/uL (0.0-0.1) 07/07/22 06:25 Nucleated RBC % (auto) 0 % 07/07/22 06:25 Nucleated RBCs # 0.0 /100WBC 07/07/22 06:25 D-Dimer 2.52 ug/mIFEU (0-0.59) H 07/06/22 13:50 Sodium 143 mmol/L (136-145) 07/07/22 06:25 Potassium 3.3 mmol/L (3.5-5.1) L 07/07/22 06:25 Chloride 111 mmol/L (98-107) H 07/07/22 06:25 Carbon Dioxide 24 mmol/L (22-29) 07/07/22 06:25 Anion Gap 11.3 (5-19) 07/07/22 06:25 BUN 10 mg/dL (8-23) 07/07/22 06:25 Creatinine 0.7 mg/dL (0.5-0.9) 07/07/22 06:25 GFR Calculation Not Reportable 07/07/22 06:25 Glucose 97 mg/dL (65-115) 07/07/22 06:25 Calculated Osmolality 295 mOsm/kg (285-295) 07/07/22 06:25 Calcium 9.8 mg/dL (8.5-10.5) 07/07/22 06:25 Magnesium 2.2 mg/dL (1.7-2.3) 07/07/22 06:25 Total Bilirubin 0.6 mg/dL (0.15-1.2) 07/05/22 15:15 AST 22 U/L (0-32) 07/05/22 15:15 ALT 13 U/L (0-33) 07/05/22 15:15 Alkaline Phosphatase 120 IU/L (35-105) H 07/05/22 15:15 Troponin T Baseline 17 ng/L (0-10) H 07/05/22 15:15 Troponin T 120 Minute 17.29 ng/L (0-10) H 07/05/22 17:08 Delta Troponin T 0.29 ABS# (0-10) 07/05/22 17:08 Troponin T Hi Sens 6Hr 19.17 ng/L (0-10) H 07/05/22 20:55 Troponin T Hi Sens 6Hr Delta 2.17 ng/L (0-12) 07/05/22 20:55 Total Protein 5.9 g/dL (6.6-8.7) L 07/05/22 15:15 Albumin 3.7 g/dL (3.5-5.2) 07/05/22 15:15 Globulin 2.2 g/dL (1.3-4.6) 07/05/22 15:15 Vitamin B12 1026 pg/mL (232-1245) 07/06/22 13:50 TSH 0.89 uIU/mL (0.27-4.20) 07/05/22 15:15 Urine Color Yellow (Yellow) 07/05/22 15:48 Urine Appearance Clear (CLEAR) 07/05/22 15:48 Urine pH 6.5 (5-7) 07/05/22 15:48 Ur Specific [place] 1.010 (1.005-1.030) 07/05/22 15:48 Urine Protein Neg (Negative) 07/05/22 15:48 Urine Glucose (UA) Norm (Normal) 07/05/22 15:48 Urine Ketones Negative (Negative) 07/05/22 15:48 Urine Blood Neg (Negative) 07/05/22 15:48 Urine Nitrate Negative (Negative) 07/05/22 15:48 Urine Bilirubin Neg (Negative) 07/05/22 15:48 Urine Urobilinogen Norm mg/dL (Negative) 07/05/22 15:48 Ur Leukocyte Esterase Negative (Negative) 07/05/22 15:48 Micro: Microbiology 07/05/22 16:08 Blood Culture - Preliminary Blood NEGATIVE TO DATE 07/05/22 16:00 Blood Culture - Preliminary Blood NEGATIVE TO DATE US Vascular: My impression: 1.? Dumbbell-shaped aneurysm of the mid and distal abdominal aorta, ?measuring 3.4 x 3.6 is proximally and a 4.3 x 4.9 distally. ?2.? Right common iliac artery aneurysm measuring 3.1 x 3.2 cm ?3.? Mild to moderate diffuse plaques in the abdominal aorta and in the ?proximal common iliac arteries ?4.? Ectatic left common iliac artery ?Compared to the study from 11/09/2020, there is significant increase in ?size of the abdominal aortic aneurysm and the right common iliac artery ?aneurysm A&P Assessment and plan (1) Syncope: The etiology of the syncope is not clear at this point. The patient had a 1 pause of 3 seconds on the monitor around 2:00 in the morning. She has a history of obstructive sleep apnea. Apparently she has not had any significant bradycardia during the waking hours. She may require prolonged monitoring to further evaluate for bradycardia induced syncope. In the meanwhile, we may need to take her off the carvedilol and start her on hydralazine 50 mg p.o. every 8 hours. Will continue the monitor. Status: Acute (2) Sinus pause: Patient may have sinus annika dysfunction. She has no recurrence of sinus pauses. Status: Acute (3) Altered mental status: This could be multifactorial. It is not very clear whether he she had a syncopal episode at home or not. She has brought the emergency room mainly for altered mental status. Status: Acute (4) Abdominal aortic aneurysm (AAA) 3.0 cm to 5.0 cm in diameter in female: The aneurysm seems to be expanding in size. She may need a surgical evaluation. Status: Chronic (5) Renal artery stenosis: The renal artery Doppler examination today did not reveal any significant renal artery stenosis. The study is of suboptimal quality. The left left kidney se ems to be atrophied Status: Acute (6) Mesenteric artery stenosis: She had stenosis of the ostium of the celiac artery and eccentric arteries, by CTA. Apparently she does not have any specific symptoms pertaining to this. May hold off on any further investigation at this point. Status: Acute (7) Accelerated hypertension: Patient was started on hydralazine this morning. The blood pressure seems to be getting under control. Status: Acute (8) Obstructive sleep apnea: Not sure whether she is getting any treatment for the sleep apnea. This needs to be looked into Status: Chronic Plan Other problems Dementia/altered mental status Hypokalemia Right iliac artery aneurysm Attestations Medical Necessity Statement*: Disposition is deferred to the primary attending Coding Level of Care Code Acute Top Collar Baster for Chg Fwd History Expanded Problem Focused Exam Detailed Medical Decision Making Moderate Complexity Diagnoses Syncope R55 Sinus pause I45.5 Altered mental status R41.82 Abdominal aortic aneurysm (AAA) 3.0 cm to 5.0 cm in diameter in female I71.4 Renal artery stenosis I70.1 Mesenteric artery stenosis K55.1 Accelerated hypertension I10 Obstructive sleep apnea G47.33
[2022-07-07] MEDS: amlodipine 10 mg Tablet PO (09:34)
[2022-07-07] MEDS: hyDRALAzine 50 mg Tablet PO (09:34)
[2022-07-07] MEDS: lisinopril 5 mg Tablet PO (09:34)
[2022-07-07 12:00] VITALS: BP 156/74; PULSE 68; RESP 15; TEMP 36.5; O2SAT 96
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
[2022-07-07] MEDS: potassium chloride ER 20 mEq Tablet 40 MEQ PO (14:02)
[2022-07-07] MEDS: labetalol 200 mg Tablet 300 MG PO (14:03)
[2022-07-07] MEDS: chlorthalidone 25 mg Tablet 12.5 MG PO (14:04)
[2022-07-07 16:00] VITALS: BP 127/65; PULSE 75; RESP 16; TEMP 36.6; O2SAT 90
--- NOTE | 2022-07-07 17:03 | CTR_ITS ---
PROCEDURE INFORMATION: Exam: CTA Chest With Contrast Exam date and time: 07/07/2022 8:14 AM Age: 72 years old Clinical indication: Other: Syncope TECHNIQUE: Imaging protocol: Computed tomographic angiography of the chest with contrast. 3D rendering (Not supervised by radiologist): MIP and/or 3D reconstructed images were created by the technologist. Radiation optimization: All CT scans at this facility use at least one of these dose optimization techniques: automated exposure control; mA and/or kV adjustment per patient size (includes targeted exams where dose is matched to clinical indication); or iterative reconstruction. Contrast material: OMNI 350; Contrast volume: 82 ml; Contrast route: INTRAVENOUS (IV); COMPARISON: CT angio chest abdomen pelvis 03/07/2022 6:38 AM RADIATION DOSE METRICS: Total DLP (mGy-cm): 176.13 FINDINGS: Pulmonary arteries: Normal. No pulmonary emboli. Aorta: Atherosclerotic calcification of the aortic arch and origins of the great vessels. Thyroid: There is a 2.3 cm nodule in the isthmus and left thyroid lobe. Lungs: Mild centrilobular emphysema. No focal airspace consolidation. Pleural spaces: Unremarkable. No pneumothorax. No pleural effusion. Heart: Unremarkable. No cardiomegaly. No pericardial effusion. Lymph nodes: Unremarkable. No enlarged lymph nodes. Bones/joints: ACDF hardware in the cervical spine. Soft tissues: Unremarkable. CT/CT angio chest PE protcl [id number] IMPRESSION: 1. No pulmonary emboli or other acute cardiopulmonary pathology identified. 2. There is a 2.3 cm thyroid nodule. Follow-up non-emergent thyroid ultrasound is recommended. COMMENTS: Consistent with the [employer]'s Incidental Findings Committee white paper (J Am Missy Radiol 2015): In patients aged 35 years and older with an incidental thyroid nodule equal to or greater than 1.[address], MRI or extrathyroidal US, further evaluation with dedicated thyroid US is recommended for patients with normal life expectancy and without comorbidities. For smaller nodules without suspicious features, no further evaluation or follow up is recommended.
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
[2022-07-07 20:00] VITALS: BP 146/78; PULSE 65; RESP 17; TEMP 36.3; O2SAT 98
[2022-07-07] MEDS: enoxaparin 40 mg/0.4 mL Syringe SUBCUT (21:01)
[2022-07-08] VITALS: BP 157/66; PULSE 57; RESP 18; TEMP 36.6; O2SAT 97
[2022-07-08 04:00] VITALS: BP 137/71; PULSE 60; RESP 16; TEMP 36.5; O2SAT 98
[2022-07-08 09:03] VITALS: PULSE 69; RESP 16; O2SAT 96
[2022-07-08] MEDS: lisinopril 20 mg Tablet PO (09:56)
[2022-07-08] MEDS: labetalol 200 mg Tablet 300 MG PO (09:56)
[2022-07-08] MEDS: amlodipine 10 mg Tablet PO (09:57)
[2022-07-08] MEDS: chlorthalidone 25 mg Tablet 12.5 MG PO (09:57)
--- NOTE | 2022-07-08 11:26 | PC.NURSE ---
pt found at nurses station with 1:1 sitter at her side confused and severe weakness. Nursing assists pt into chair to prevent fall and returns pt to bed. Pt is oriented to person and birthday but disoriented to time, situation and location. Vitals are obtained and wnl.
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
[2022-07-08 12:00] VITALS: BP 110/68; PULSE 59; RESP 14; TEMP 36.6; O2SAT 96
--- NOTE | 2022-07-08 12:13 | PC.SOCIAL ---
IMM Update pg 2 of IMM updated and reviewed w/ patient. Copy provided and Copy dated, initialed and placed in chart.
[2022-07-08 15:04] VITALS: BP 110/68; PULSE 59; RESP 14; TEMP 36.6; O2SAT 96
== END 2022-07-08 16:16 | disposition home or self-care (01) | DRG 77 ==
LOC: ER 20:20 → MEDSURG 23:45
PROVIDERS: Admitting Provider Internal Medicine; Emergency Provider Emergency Medicine; PCP Family Medicine; Visit Provider Internal Medicine
DX: I67.4 Hypertensive encephalopathy (principal); G93.5 Compression of brain; N30.00 Acute cystitis without hematuria; K55.1 Chronic vascular disorders of intestine; F03.90 Unspecified dementia, unspecified severity, without behavioral disturbance, psychotic disturbance, mood disturbance, and anxiety; Z91.128 Patient's intentional underdosing of medication regimen for other reason; I10 Essential (primary) hypertension; I71.4 Abdominal aortic aneurysm, without rupture; E78.5 Hyperlipidemia, unspecified; G47.33 Obstructive sleep apnea (adult) (pediatric); I25.10 Atherosclerotic heart disease of native coronary artery without angina pectoris; Z95.5 Presence of coronary angioplasty implant and graft; I73.9 Peripheral vascular disease, unspecified; M05.9 Rheumatoid arthritis with rheumatoid factor, unspecified; Z98.1 Arthrodesis status; Z87.891 Personal history of nicotine dependence; Z96.0 Presence of urogenital implants; I12.9 Hypertensive chronic kidney disease with stage 1 through stage 4 chronic kidney disease, or unspecified chronic kidney disease; N18.9 Chronic kidney disease, unspecified; I70.1 Atherosclerosis of renal artery; R55 Syncope and collapse; R29.6 Repeated falls
CPT/HCPCS: 36415; 51701; 70450; 71045; 71275; 80048; 80053; 81003; 82607; 83735; 84443; 84484; 85025; 85378; 87040; 93005; 93306; 93970; 93975; 93978; 94760; 96372; 96374; 99285; J0360; J1650; Q9967

== ENCOUNTER 2022-07-09 09:35 | Emergency (ER) | payer MEDICARE, OTHER, SELFPAY ==
[2022-07-09] VITALS (8 sets, daily range): BP systolic 110–163; BP diastolic 52–77; PULSE 61–74; RESP 15–19; TEMP 36.4; O2SAT 96–99
--- NOTE | 2022-07-09 09:59 | CT_ITS ---
WS: [id number] CT HEAD NONCONTRAST HISTORY: AMS TECHNIQUE: Contiguous axial imaging performed through the brain in 2.5 mm imaging. Bone and soft tiss ue windows. Sagittal and coronal reformats reviewed. All CT scans at [facility] use at least one of these dose optimization techniques: automated exposure control; mA and/or kV adjustment per pa tient size (includes targeted exams where dose is matched to clinical indication); or iterative recon struction. DLP: 1027.58 mGy.cm COMPARISON: 07/05/2022 No acute intracranial hemorrhage, midline shift or mass effect. Mild atrophy with severe diffuse confluent low attenuation throughout the white matter from chronic i schemic disease. No interval change since the prior study of 07/05/2022. Ventricles: Normal size with no hydrocephalus. No inferior displacement of cerebellar tonsils. Paranasal sinuses: As visualized are clear. Mastoid air cells: Well pneumatized. Calvarium and scalp: Hyperostosis frontalis interna. CT/CT head wo con* [id number] IMPRESSION: 1. Severe chronic white matter disease. Similar to the prior study. 2. No acute hemorrhage. 3. Diffuse atrophy.
--- NOTE | 2022-07-09 10:00 | XRR_ITS ---
PROCEDURE INFORMATION: Exam: XR Chest Exam date and time: 07/09/2022 10:40 AM Age: 72 years old Clinical indication: Cough and dyspnea; Additional info: Dyspnea/cough TECHNIQUE: Imaging protocol: Radiologic exam of the chest. Views: 1 view. COMPARISON: CR XR chest 1V portable [id number] 07/05/2022 3:28 PM FINDINGS: Lungs: Unremarkable. No consolidation. Pleural spaces: Unremarkable. No pleural effusion. No pneumothorax. Heart/Mediastinum: The heart is not enlarged. The aorta is tortuous and calcified. Bones/joints: Unremarkable. XR/XR chest 1V portable [id number] IMPRESSION: No acute abnormality.
--- NOTE | 2022-07-09 10:09 | ECG_ITS ---
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 Measurements Intervals [place] Rate: 66 P: 73 IA: 154 QRS: 48 QRSD: 82 T: -65 QT: 395 QTc: 416 Interpretive Statements SINUS RHYTHM NONSPECIFIC T-WAVE ABNORMALITY Compared to ECG 07/05/2022 21:44:58 Sinus bradycardia no longer present Possible ischemia no longer present T-wave abnormality still present Electronically Signed On 07-09-2022 18:57:12 CDT by Jamie Ordaz M.D. [id number]
--- NOTE | 2022-07-09 10:12 | PC.NURSE ---
PT PLACED ON CONTINUOUS NIBP, SPO2, AND CM
--- NOTE | 2022-07-09 10:33 | ED_ITS ---
HPI - Altered Mental Status General: Chief Complaint: Altered Mental Status Stated Complaint: overdose Time Seen by Provider: 07/09/22 09:55 Source: patient Mode of arrival: wheelchair History of Present Illness: 72-year-old female presents emergency room from medical office building. Evidently she took several pills last night although she does not recall this. Her brought her in and is not sure what she took. Onset (ago): hour(s) Severity: mild Associated symptoms: Deny auditory hallucinations, visual hallucinations, delus ions, depression, homicidal ideation, racing thoughts or suicidal ideation Review of Systems Const: Denies: fever(s), chills, body aches, change in appetite, fatigue or malaise ENMT: Denies: throat pain, ear or mastoid pain, nasal discharge or nasal congestion Card: Denies: chest pain, edema, dyspnea on exertion or orthopnea Resp: Denies: dyspnea, productive cough or non-productive cough GI: Denies: abdominal pain, nausea, vomiting, hematemesis, coffee ground emesis, diarrhea, constipation, bloating, hematochezia or melena : Denies: flank pain, difficulty voiding, dysuria, urinary frequency or urinary urgency Skin/Breast: Denies: rash or pruritus Psych: Denies: anxiety, depression, visual hallucinations, auditory hallucinations, suicidal ideation or homicidal ideation PFS ED PFSH: Medical History Abdominal aortic aneurysm (AAA) 3.0 cm to 5.0 cm in diameter in female Abnormal EKG 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 by CTA Jan 2018 Arnold-Chiari malformation, type I Atrophy of left kidney Coronary artery disease Esophageal thickening incidental finding on CT 03/2021 High risk medication use Hyperlipidemia Hypertension, essential Mesenteric artery stenosis Obstructive sleep apnea Peripheral vascular disease multiple vessels Polypharmacy Primary osteoarthritis of knees, bilateral Seropositive rheumatoid arthritis of multiple joints Thyroid nodule incidental indeterminant finding on CT 03/2021 Uncontrolled hypertension UTI (urinary tract infection) Surgical History H/O hysterectomy with oophorectomy History of appendectomy History of total right knee replacement (TKR) S/P carpal tunnel release right, Dr. Hazel, 2014 S/P cataract extraction and insertion of intraocular lens bilateral S/P cervical spinal fusion ACDFF Dr. Dawn 12/07/2015 S/P right coronary artery (RCA) stent placement (~05/2019) Family History Mother CAD (coronary artery disease) Father No problems noted. Other Cancer Rheumatoid arthritis Denies family history of Chronic kidney disease (CKD) Systemic lupus erythematosus (SLE) in adult Lung disease Hypertension Social History Smoking and tobacco status: former smoker Alcohol intake: never Marital status: Current occupational status: retired History of recent travel: No (12/10/19) Physical Exam Const: COMMON NORMALS: no acute distress GENERAL APPEARANCE: cooperative an d comfortable NUTRITIONAL APPEARANCE: obese ORIENTATION/CONSCIOUSNESS: Yes awake HENMT: COMMON NORMALS: normocephalic, atraumatic and hearing grossly normal bilaterally HEAD & SCALP: normocephalic and atraumatic Eye: COMMON NORMALS: Equal, round and reactive pupils present, EOMs intact bilaterally and conjunctivae normal CONJUNCTIVA: Yes conjunctivae normal PUPIL: Yes Equal, round and reactive pupils present Resp: COMMON NORMALS: normal respiratory effort, No retractions, No use of accessory muscles and clear to auscultation bilaterally AUSCULTATION: clear to auscultation bilaterally Cardio: COMMON NORMALS: regular rate and regular rhythm RATE: regular rate RHYTHM: regular rhythm GI: COMMON NORMALS: Normal to inspection, nondistended, normoactive bowel sounds present, non-tender and No hepatosplenomegaly present PALPATION: Yes Tenderness to palpation present (GI) and Yes No hepatosplenomegaly present : COMMON NORMALS: Yes no CVA tenderness BLADDER/KIDNEY EXAM: Yes no CVA tenderness Back/Pelvis: COMMON NORMALS: no CVA tenderness Extremity: COMMON NORMALS: no clubbing, cyanosis or edema GENERAL: Yes normal exam except as noted and No edema Psych: THOUGHT CONTENT: No delusions Course Vital Signs: Vital signs: Vital Signs Temperature 97.6 F 07/09/22 09:37 Pulse Rate 74 07/09/22 14:08 Respiratory Rate 17 07/09/22 14:08 Blood Pressure 134/77 07/09/22 14:08 Pulse Oximetry 98 07/09/22 14:08 Oxygen Delivery Me thod 08/09/22 13:45 MDM - Altered Mental Status Medical Decision Making Patient is feeling better she has normal side effects labs and imaging reviewed we will discharge patient home follow-up as needed Medical Records I reviewed the patient's medical records. Lab Data I reviewed the patient's lab results. : 07/09/22 10:20 07/09/22 10:[address] 07/09/22 09:59 IMPRESSION: 1. Severe chronic white matter disease. Similar to the prior study. 2. No acute hemorrhage. 3. Diffuse atrophy. Chest X-Ray 07/09/22 10:00 IMPRESSION: No acute abnormality. Laboratory Results WBC 5.5 10^3/uL (4.0-10.0) 07/09/22 10:20 RBC 4.17 10^6/uL (4.1-5.3) 07/09/22 10:20 Hgb 11.4 g/dL (11.5-15.3) L 07/09/22 10:20 Hct 38.2 % (37.0-47.0) 07/09/22 10:20 MCV 91.6 fl (81-99) 07/09/22 10:20 MCH 27.3 pg (28.0-34.0) L 07/09/22 10:20 MCHC 29.8 g/dL (30.0-36.0) L 07/09/22 10:20 RDW 14.6 % (12.1-15.1) 07/09/22 10:20 Plt Count 158 10^3/cmm (130-400) 07/09/22 10:20 MPV 11.3 fL (7.4-10.4) H 07/09/22 10:20 Neut % (Auto) 72.7 % 07/09/22 10:20 Lymph % (Auto) 17.4 % 07/09/22 10:20 [place] % (Auto) 8.2 % 07/09/22 10:20 Eos % (Auto) 0.2 % 07/09/22 10:20 Baso % (Auto) 1.1 % 07/09/22 10:20 Neut # (Auto) 3.97 10^3/uL (1.8-7.7) 07/09/22 10:20 Lymph # (Auto) 1.0 10^3/uL (0.8-4.8) 07/09/22 10:20 [place] # (Auto) 0.5 10^3/uL (0.2-0.9) 07/09/22 10:20 Eos # (Auto) 0.0 10^3/uL (0.0-0.8) 07/09/22 10:20 Baso # (Auto) 0.1 10^3/uL (0.0-0.1) 07/09/22 10:20 Nucleated RBC % (auto) 0 % 07/09/22 10:20 Nucleated RBCs # 0.0 /100WBC 07/09/22 10:20 Sodium 140 mmol/L (136-145) 07/09/22 10:20 Potassium 3.8 mmol/L (3.5-5.1) 07/09/22 10:20 Chloride 106 mmol/L (98-107) 07/09/22 10:20 Carbon Dioxide 21 mmol/L (22-29) L 07/09/22 10:20 Anion Gap 16.8 (5-19) 07/09/22 10:20 BUN 18 mg/dL (8-23) 07/09/22 10:20 Creatinine 0.9 mg/dL (0.5-0.9) 07/09/22 10:20 GFR Calculation Not Reportable 07/09/22 10:20 Glucose 91 mg/dL (65-115) 07/09/22 10:20 Calculated Osmolality 291 mOsm/kg (285-295) 07/09/22 10:20 Lactic Acid 1.8 mmol/L (0.5-2.2) 07/09/22 10:20 Calcium 9.8 mg/dL (8.5-10.5) 07/09/22 10:20 Total Bilirubin 0.4 mg/dL (0.15-1.2) 07/09/22 10:20 AST 17 U/L (0-32) 07/09/22 10:20 ALT 11 U/L (0-33) 07/09/22 10:20 Alkaline Phosphatase 107 IU/L (35-105) H 07/09/22 10:20 Troponin T Baseline 19 ng/L (0-10) H 07/09/22 10:20 Troponin T 120 Minute 16.99 ng/L (0-10) H 07/09/22 13:05 Delta Troponin T -2.01 ABS# (0-10) L 07/09/22 13:05 Total Protein 5.7 g/dL (6.6-8.7) L 07/09/22 10:20 Albumin 3.6 g/dL (3.5-5.2) 07/09/22 10:20 Globulin 2.1 g/dL (1.3-4.6) 07/09/22 10:20 Lipase 67 U/L (13-60) H 07/09/22 10:20 Urine Color Yellow (Yellow) 07/09/22 11:54 Urine Appearance Clear (CLEAR) 07/09/22 11:54 Urine pH 6 (5-7) 07/09/22 11:54 Ur Specific [place] 1.010 (1.005-1.030) 07/09/22 11:54 Urine Protein Neg (Negative) 07/09/22 11:54 Urine Glucose (UA) Norm (Normal) 07/09/22 11:54 Urine Ketones Negative (Negative) 07/09/22 11:54 Urine Blood Neg (Negative) 07/09/22 11:54 Urine Nitrate Negative (Negative) 07/09/22 11:54 Urine Bilirubin Neg (Negative) 07/09/22 11:54 Urine Urobilinogen Norm mg/dL (Negative) 07/09/22 11:54 Ur Leukocyte Esterase 1+ (Negative) H 07/09/22 11:54 Urine RBC 0-4 /hpf (0-2) H 07/09/22 11:54 Urine WBC 5-10 /hpf (0-5) H 07/09/22 11:54 Ur Squamous Epith Cells 0-4 /hpf (0-5) H 07/09/22 11:54 Amorphous Sediment Not Reportable 07/09/22 11:54 Urine Bacteria None /hpf (NONE) 07/09/22 11:54 Salicylates < 0.3 mg/dL (3-10) L 07/09/22 10:20 Acetaminophen < 5.0 ug/mL (10-30) L 07/09/22 10:20 Ethyl Alcohol < 10 mg/dL (0-10) 07/09/22 10:20 Discharge Plan Discharge Patient Disposition: Home Clinical Impression: Obstructive sleep apnea, Medication side effect Condition: Stable Prescriptions: No Action nitroglycerin [Nitrostat] 0.4 mg Tablet, Sublingual 0.4 mg SUBLINGUAL Q5M PRN (Reason: Chest Pain) Rx Instructions: do not exceed 3 doses per episode lisinopril 20 mg Tablet 40 mg PO DAILY Qty: 60 4RF chlorthalidone 25 mg Tablet 12.5 mg PO DAILY Qty: 60 4RF atorvastatin 40 mg tablet 40 mg PO QPM Qty: 90 0RF amlodipine 10 mg Tablet 10 mg PO DAILY Qty: 90 3RF potassium chloride 10 mEq tablet extended release 10 meq PO DAILY Qty: 7 0RF Discharge Orders: Discharge ED (Routine); Ordered 07/09/22 Ordered By: Pradip Brown Referrals: Silvia Peng MD [Primary Care Provider] - Discharge Diet: Usual diet Discharge Activity: Increase activity as tolerated Patient Instructions: Opioid Safety Activity Restrictions/Additional Instructions: Keep follow-up as scheduled at the time of your discharge. Coding Level of Care Code ED Table Games Dual Rate Supervisor for Loulou Fwd Exam Comprehensive
[2022-07-09 10:40] LABS: Basophils # 0.1 10^3/uL (0.0-0.1); Basophils % 1.1 %; Eosinophils % 0.2 %; Hematocrit 38.2 % (37.0-47.0); Hemoglobin 11.4 g/dL (11.5-15.3); Lymphocytes % 17.4 %; Mean Corpuscular HGB Conc 29.8 g/dL (30.0-36.0); Mean Corpuscular Hemoglobin 27.3 pg (28.0-34.0); Mean Corpuscular Volume 91.6 fl (81-99); Mean Platelet Volume 11.3 fL (7.4-10.4); Monocytes # 0.5 10^3/uL (0.2-0.9); Monocytes % 8.2 %; Neutrophils # 3.97 10^3/uL (1.8-7.7); Neutrophils % 72.7 %; Nucleated Red Blood Cells % 0 %; Platelet Count 158 10^3/cmm (130-400); Red Blood Count 4.17 10^6/uL (4.1-5.3); Red Cell Distribution Width 14.6 % (12.1-15.1); White Blood Count 5.5 10^3/uL (4.0-10.0)
[2022-07-09 11:06] LABS: Lactic Sepsis W/Reflex 1.8 mmol/L (0.5-2.2)
[2022-07-09 11:14] LABS: Troponin(5th) Baseline 19 ng/L (0-10)
[2022-07-09 11:15] LABS: Alanine Aminotransferase 11 U/L (0-33); Albumin Level 3.6 g/dL (3.5-5.2); Alkaline Phosphatase 107 IU/L (35-105); Anion Gap 16.8 (5-19); Aspartate Amino Transferase 17 U/L (0-32); Blood Urea Nitrogen 18 mg/dL (8-23); Calcium 9.8 mg/dL (8.5-10.5); Carbon Dioxide 21 mmol/L (22-29); Chloride 106 mmol/L (98-107); Globulin 2.1 g/dL (1.3-4.6); Glucose 91 mg/dL (65-115); Lipase 67 U/L (13-60); Osmolality Calculated 291 mOsm/kg (285-295); Potassium 3.8 mmol/L (3.5-5.1); Sodium 140 mmol/L (136-145); Total Bilirubin 0.4 mg/dL (0.15-1.2); Total Protein 5.7 g/dL (6.6-8.7)
[2022-07-09 11:22] LABS: Acetaminophen < 5.0 ug/mL (10-30); Alcohol Level < 10 mg/dL (0-10); Salicylate < 0.3 mg/dL (3-10)
--- NOTE | 2022-07-09 12:00 | ECG_ITS ---
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 Measurements Intervals [place] Rate: 63 P: 79 OR: 156 QRS: 56 QRSD: 82 T: 56 QT: 406 QTc: 416 Interpretive Statements SINUS RHYTHM MODERATE T-WAVE ABNORMALITY, CONSIDER ANTERIOR ISCHEMIA [-0.1+ mV T-WAVE IN V3/V4] Compared to ECG 07/09/2022 10:09:45 Possible ischemia now present T-wave abnormality still present Electronically Signed On 07-09-2022 19:01:28 CDT by Jamie Ordaz M.D. [id number]
[2022-07-09 12:35] LABS: Urine Appearance Clear (CLEAR); Urine Color Yellow (Yellow); pH Urine 6 (5-7)
[2022-07-09 12:36] LABS: Add Urine Culture? No; Add Urine Microscopic? YES; Bilirubin Urine Neg (Negative); Blood Urine Neg (Negative); Glucose Urine UA Norm (Normal); Ketones Urine Negative (Negative); Leukocyte Esterase Urine 1+ (Negative); Nitrate Urine Negative (Negative); Protein Urine Neg (Negative); RBC Urine 0-4 /hpf (0-2); Squamous Epithelial Cell Urine 0-4 /hpf (0-5); Urobilinogen Urine Norm (Negative)
[2022-07-09 13:36] LABS: Troponin 5 2HR 16.99 ng/L (0-10)
[2022-07-09 13:41] LABS: Troponin 5 2HR Delta -2.01 ABS# (0-10)
== END 2022-07-09 14:11 | disposition home or self-care (01) ==
PROVIDERS: Emergency Provider Family Medicine; PCP Family Medicine
DX: G47.33 Obstructive sleep apnea (adult) (pediatric) (principal); T88.7XXA Unspecified adverse effect of drug or medicament, initial encounter; T50.905A Adverse effect of unspecified drugs, medicaments and biological substances, initial encounter; Z87.891 Personal history of nicotine dependence; I25.10 Atherosclerotic heart disease of native coronary artery without angina pectoris; E78.5 Hyperlipidemia, unspecified; I10 Essential (primary) hypertension
CPT/HCPCS: 36415; 70450; 71045; 80053; 80307; 81001; 83605; 83690; 84484; 85025; 93005; 99285

== ENCOUNTER 2022-07-11 03:35 | Emergency (ER) | payer MEDICARE, OTHER, SELFPAY ==
--- NOTE | 2022-07-11 03:37 | W.ED.AMS ---
HPI - Altered Mental Status General: Chief Complaint: Altered Mental Status Stated Complaint: AMS Time Seen by Provider: 07/11/22 03:37 Limitations: altered mental status History of Present Illness: Ms. Martinez is a 72-year-old lady with history of medication noncompliance, confusion/dementia/memory loss, history of hypertensive urgency, history of TBI who presents to the emergency department due to somewhat unclear reasons. Per EMS report they were called because the patient was drinking water from a cat bowl though apparently this is not atypical for the patient given her baseline mental status after TBI. She essentially had no other complaints and apparently even admitted that she is essentially at baseline however they wanted her transported in hopes of her getting to her hospital follow-up appointment this morning. They even requested EMS stay in the house for a number of hours until they could bring her to her appointment. The patient herself is chronically a dismal historian but essentially denies complaints. She does not provide explanation for drinking water from the cat bowl. No other specific changes in health, exacerbating, or alleviating factors identified. Review of Systems General: Reports: ROS unobtainable due to mental status PFSH ED PFSH: Medical History Abdominal aortic aneurysm (AAA) 3.0 cm to 5.0 cm in diameter in female Abnormal EKG 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 by CTA Jan 2018 Arnold-Chiari malformation, type I Atrophy of left kidney Coronary artery disease Esophageal thickening incidental finding on CT 03/2021 High risk medication use Hyperlipidemia Hypertension, essential Mesenteric artery stenosis Obstructive sleep apnea Peripheral vascular disease multiple vessels Polypharmacy Primary osteoarthritis of knees, bilateral Seropositive rheumatoid arthritis of multiple joints Thyroid nodule incidental indeterminant finding on CT 03/2021 Uncontrolled hypertension UTI (urinary tract infection) Surgical History H/O hysterectomy with oophorectomy History of appendectomy History of total right knee replacement (TKR) S/P carpal tunnel release right, Dr. Hazel, 2013 S/P cataract extraction and insertion of intraocular lens bilateral S/P cervical spinal fusion ACDFF Dr. Dawn 12/07/2015 S/P right coronary artery (RCA) stent placement (~05/2019) Family History Mother CAD (coronary artery disease) Father No problems noted. Other Cancer Rheumatoid arthritis Denies family history of Chronic kidney disease (CKD) Systemic lupus erythematosus (SLE) in adult Lung disease Hypertension Social History Smoking and tobacco status: former smoker Alcohol intake: never Marital status: Current occupational status: retired History of recent travel: No (12/10/19) Physical Exam Const: COMMON NORMALS: alert GENERAL APPEARANCE: cooperative and well developed HENMT: COMMON NORMALS: normocephalic and atraumatic HEAD & SCALP: normocephalic and atraumatic THROAT: posterior oropharynx normal OTHER: No castillo signs or raccoon eyes. No otorrhea or rhinorrhea. Jaw alignment normal. Dentition baseline. No obvious bony step-offs. No septal hematoma. No evidence of ocular entrapment. Eye: COMMON NORMALS: conjunctivae normal CONJUNCTIVA: Yes conjunctivae normal SCLERA: sclerae normal Neck/C-Spine: COMMON NORMALS: supple GENERAL: Yes trachea midline Resp: COMMON NORMALS: clear to auscultation bilaterally EFFORT & INSPECTION: Yes able to speak in complete sentences AUSCULTATION: clear to auscultation bilaterally Cardio: COMMON NORMALS: regular rate and regular rhythm RATE: regular rate RHYTHM: regular rhythm GI: COMMON NORMALS: Soft to palpation PALPATION: Yes Soft to palpation and No Tenderness to palpation present (GI) Extremity: NARRATIVE EXTREMITY EXAM: Small contusion and tenderness to palpation of left anterior knee GENERAL: Yes normal exam except as noted and No edema Neuro: COMMON NORMALS: moves all extremities SENSORIUM/ORIENTATION: Yes alert and Yes Orientation impaired (Baseline) Course ED course: - Patient was seen and evaluated by me at bedside - Patient placed on cardiac monitors, IV access obtained - Initial evaluation notable for exam as above, abnormal but essentially baseline - Labs personally interpreted by me -EKG notable for sinus rhythm, no STEMI -Prior ED evaluations reviewed - Labs notable for normal glucose - Imaging notable for negative knee x-ray for acute fracture. Negative CT head and neck for acute pathology. - Upon serial reexamination after treatment the patient was similar - Based on patient history, evaluation, and testing as interpreted the most likely cause of the patient's condition is abnormal mental status/behavior due to chronic underlying medical conditions - The results of ED evaluation were given to the patient including prescriptions and/or symptomatic cares (if applicable) including appropriate and responsible use, followup plan, and return precautions. - Patient discharged in satisfactory condition. Note: Click bubbles or prepopulated romero in note writing are used for assistance with data collection and billing and are inherently more limited than narrative and other text portions of this note. Please use narrative for additional clinical history and defer to narrative/free test for any case of contradictory information. If information appears in only free text or click bubble it should be considered present or absent as reported. Please contact note policy writer sales for clarifications of clinical information or contradictory information. MDM is a brief summary, contradictory or erroneous seeming information should be clarified and full note should be reviewed. Vital Signs: Vital signs: Vital Signs Temperature 98.2 F 07/11/22 03:40 Pulse Rate 80 07/11/22 06:47 Respiratory Rate 17 07/11/22 06:47 Blood Pressure 142/86 07/11/22 06:47 Pulse Oximetry 98 07/11/22 03:40 MDM - Altered Mental Status Medical Decision Making 72-year-old lady well-known to the emergency department presenting with abnormal activity/mental status. Patient has nonfocal neurologic exam and appears largely baseline based on previous encounters with this patient. Patient is nontoxic. Normal glucose, no STEMI on EKG, negative imaging. Satisfactory for outpatient management. Medical Records I reviewed the patient's medical records. Lab Data I reviewed the patient's lab results. Radiology Impressions Cervical Spine CT 07/11/22 03:49 IMPRESSION: No acute findings. Head CT 07/11/22 03:49 IMPRESSION: No acute intracranial abnormality. Knee X-Ray 07/11/22 03:49 IMPRESSION: No acute fracture. Laboratory Results POC Glucose 89 mg/dL (70-110) 07/11/22 04:23 Discharge Plan Discharge Patient Disposition: Home Clinical Impression: Mental status alteration, History of traumatic brain injury, Traumatic ecchymosis of left knee Condition: Stable Prescriptions: No Action nitroglycerin [Nitrostat] 0.4 mg Tablet, Sublingual 0.4 mg SUBLINGUAL Q5M PRN (Reason: Chest Pain) Rx Instructions: do not exceed 3 doses per episode lisinopril 20 mg Tablet 40 mg PO DAILY Qty: 60 4RF chlorthalidone 25 mg Tablet 12.5 mg PO DAILY Qty: 60 4RF atorvastatin 40 mg tablet 40 mg PO QPM Qty: 90 0RF amlodipine 10 mg Tablet 10 mg PO DAILY Qty: 90 3RF potassium chloride 10 mEq tablet extended release 10 meq PO DAILY Qty: 7 0RF Discharge Orders: Discharge ED (Routine); Ordered 07/11/22 Ordered By: Hank Garcia Referrals: Silvia Peng MD [Primary Care Provider] - Discharge Diet: Usual diet Discharge Activity: Increase activity as tolerated Patient Instructions: Dementia (ED), Cognitive Disorders after Traumatic Brain Injury (ED) Activity Restrictions/Additional Instructions: Thank you for visiting the emergency department. You were seen and evaluated for abnormal activity. The exact cause of this is unclear however does not appear to need hospitalization at this time. Please follow-up with your primary care provider. Given difficulties regarding management of underlying medical conditions I recommend pursuing assisted living or fpc. Return to the emergency department for anything that you feel requires emergency department evaluation. Coding Level of Care Code ED Physical Therapist Assistant for Loulou Fwkenneth Exam Comprehensive
[2022-07-11 03:40] VITALS: BP 128/70; PULSE 57; RESP 16; TEMP 36.8; O2SAT 98
--- NOTE | 2022-07-11 03:49 | CTR_ITS ---
PROCEDURE INFORMATION: Exam: CT Cervical Spine Without Contrast Exam date and time: 07/11/2022 4:07 AM Age: 72 years old Clinical indication: Injury or trauma; Fall; Blunt trauma; Prior surgery; Surgery type: Cervical fusion; Patient HX: found patient on the floor at home. Patient very altered. Chronic history of dementia and AMS. ; Additional info: AMS, ? fall TECHNIQUE: Imaging protocol: Computed tomography of the cervical spine without contrast. Total images: 243 Radiation optimization: All CT scans at this facility use at least one of these dose optimization techniques: automated exposure control; mA and/or kV adjustment per patient size (includes targeted exams where dose is matched to clinical indication); or iterative reconstruction. COMPARISON: CT cervical spin wo con* [id number] 06/01/2022 9:17 PM RADIATION DOSE METRICS: Total DLP (mGy-cm): 125.87 FINDINGS: Bones/joints: C5-C6 anterior cervical spine fusion. Plate and screws in place with no evidence of hardware failure. Facet joint degenerative changes are present. Discs/Spinal canal/Neural foramina: No significant disc protrusion. No severe spinal canal stenosis. No significant neural foraminal narrowing. Lungs: Lung apices are normal. Vasculature: Calcified atherosclerotic plaque is noted at the carotid bifurcations bilaterally. Soft tissues: Unremarkable. CT/CT cervical spin wo con* [id number] IMPRESSION: No acute findings.
--- NOTE | 2022-07-11 03:49 | CTR_ITS ---
PROCEDURE INFORMATION: Exam: CT Head Without Contrast Exam date and time: 07/11/2022 4:05 AM Age: 72 years old Clinical indication: Altered mental status/memory loss; Patient HX: found patient on the floor at home. Patient very altered. Chronic history of dementia and AMS. TECHNIQUE: Imaging protocol: Computed tomography of the head without contrast. Total images: 881 Radiation optimization: All CT scans at this facility use at least one of these dose optimization techniques: automated exposure control; mA and/or kV adjustment per patient size (includes targeted exams where dose is matched to clinical indication); or iterative reconstruction. COMPARISON: CT head wo con* [id number] 07/09/2022 11:09 AM RADIATION DOSE METRICS: Total DLP (mGy-cm): 3443411144 FINDINGS: Brain: Global brain atrophy and chronic white matter ischemic changes are present. Chronic lacunar infarction in the brenda. Cerebral ventricles: Ventricles are appropriate in size for degree of atrophy. Paranasal sinuses: Visualized sinuses are unremarkable. No fluid levels. Mastoid air cells: Visualized mastoid air cells are well aerated. Bones/joints: Unremarkable. No acute fracture. Soft tissues: Unremarkable. CT/CT head wo con* [id number] IMPRESSION: No acute intracranial abnormality.
--- NOTE | 2022-07-11 03:49 | XRR_ITS ---
PROCEDURE INFORMATION: Exam: XR Left Knee Exam date and time: 07/11/2022 3:55 AM Age: 72 years old Clinical indication: Injury or trauma; Fall; Blunt trauma; Left; Patient HX: found patient on the floor at home. Small bruise to anteior aspect of knee. ; Additional info: Bruising, pain TECHNIQUE: Imaging protocol: Radiologic exam of the Left knee. Views: 3 views. COMPARISON: MR knee LT wo/w con [id number] 09/04/2018 12:53 PM FINDINGS: Bones/joints: Tricompartmental degenerative changes. No acute fracture. No dislocation. Soft tissues: Normal. XR/XR knee LT 3V* [id number] IMPRESSION: No acute fracture.
--- NOTE | 2022-07-11 04:20 | ECG_ITS ---
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 Measurements Intervals [place] Rate: 54 P: 80 NC: 149 QRS: 57 QRSD: 85 T: 71 QT: 437 QTc: 416 Interpretive Statements SINUS BRADYCARDIA NONSPECIFIC T-WAVE ABNORMALITY Compared to ECG 07/09/2022 12:00:57 Sinus rhythm no longer present Possible ischemia no longer present T-wave abnormality still present Electronically Signed On 07-11-2022 18:40:39 CDT by Nikki Doe M.D. [id number]
[2022-07-11 04:28] LABS: Glucose Point of Care 89 mg/dL (70-110)
[2022-07-11 04:48] VITALS: BP 133/68; RESP 16
[2022-07-11 05:30] VITALS: BP 142/86; PULSE 80; RESP 17
--- NOTE | 2022-07-11 05:47 | PC.NURSE ---
@ 7579- Left a message for the patients spouse- Chente ( home #) to let him know that Rosie has been d/c from the ER and is waiting for a ride home. Attempted to contact Chente on his cell # as well. No answer and unable to leave a message.
[2022-07-11 06:47] VITALS: BP 142/86; PULSE 80; RESP 17
== END 2022-07-11 07:01 | disposition home or self-care (01) ==
PROVIDERS: Emergency Provider Emergency Medicine; PCP Family Medicine
DX: R41.82 Altered mental status, unspecified (principal); S80.02XA Contusion of left knee, initial encounter; Z87.820 Personal history of traumatic brain injury; Z87.891 Personal history of nicotine dependence; I25.10 Atherosclerotic heart disease of native coronary artery without angina pectoris; E78.5 Hyperlipidemia, unspecified; I10 Essential (primary) hypertension; X58.XXXA Exposure to other specified factors, initial encounter; Z04.89 Encounter for examination and observation for other specified reasons
CPT/HCPCS: 36416; 70450; 72125; 73562; 82962; 93005; 99281; 99284

== ENCOUNTER 2022-07-11 17:59 | Emergency (ER) | payer MEDICARE, OTHER, SELFPAY ==
[2022-07-11 18:18] VITALS: PULSE 72; RESP 18; TEMP 36.8; O2SAT 96
--- NOTE | 2022-07-11 18:32 | ED_ITS ---
HPI - Recheck/Abnormal Lab/Rx General: Chief Complaint: General Medical Stated Complaint: CONFUSION Time Seen by Provider: 07/11/22 18:06 Source: patient, family and old records reviewed Mode of arrival: EMS History of Present Illness: This patient returned to the emergency department via EMS accompanied by her spouse. There is no acute complaint or change in her usual condition. The states they are here to get additional or new paperwork for her to be admitted to the longterm. He states that they were given such paperwork today when they were discharged from the emergency department and apparently it was destroyed by the spouse. 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 2018 Arnold-Chiari malformation, type I Atrophy of left kidney Coronary artery disease Esophageal thickening incidental finding on CT 03/2021 High risk medication use Hyperlipidemia Hypertension, essential Mesenteric artery stenosis Obstructive sleep apnea Peripheral vascular disease multiple vessels Polypharmacy Primary osteoarthritis of knees, bilateral Seropositive rheumatoid arthritis of multiple joints Thyroid nodule incidental indeterminant finding on CT 03/2021 Uncontrolled hypertension UTI (urinary tract infection) Surgical History H/O hysterectomy with oophorectomy History of appendectomy History of total right knee replacement (TKR) S/P carpal tunnel release right, Dr. Hazel, 2013 S/P cataract extraction and insertion of intraocular lens bilateral S/P cervical spinal fusion ACDFF Dr. Dawn 12/07/2015 S/P right coronary artery (RCA) stent placement (~05/2019) Family History Mother CAD (coronary artery disease) Father No problems noted. Other Cancer Rheumatoid arthritis Denies family history of Chronic kidney disease (CKD) Systemic lupus erythematosus (SLE) in adult Lung disease Hypertension Social History Smoking and tobacco status: former smoker Alcohol intake: never Marital status: Current occupational status: retired History of recent travel: No (1/10/20) Physical Exam Narrative: EXAM NARRATIVE: The patient makes good eye contact but clearly confused as to current situation. Const: COMMON NORMALS: no acute distress and alert HENMT: COMMON NORMALS: normocephalic HEAD & SCALP: normocephalic Eye: COMMON NORMALS: Equal, round and reactive pupils present, conjunctivae normal and no scleral icterus CONJUNCTIVA: Yes conjunctivae normal PUPIL: Yes Equal, round and reactive pupils present Neck/C-Spine: COMMON NORMALS: full ROM Chest: COMMONS NORMALS: normal inspection of the chest Resp: COMMON NORMALS: normal respiratory effort, No retractions and No use of accessory muscles Cardio: COMMON NORMALS: regular rate, regular rhythm and Peripheral pulses 2+ throughout RATE: regular rate RHYTHM: regular rhythm PERIPHERAL PULSES: Peripheral pulses 2+ throughout GI: COMMON NORMALS: Normal to inspection, nondistended, normoactive bowel sounds present Back/Pelvis: COMMON NORMALS: thoracic and lumbar spine normal to inspection, no thoracic nor lumbar tenderness and thoraco-lumbar ROM normal Extremity: COMMON NORMALS: normal to inspection, full ROM, capillary refill normal and no pedal edema Neuro: COMMON NORMALS: moves all extremities SENSORIUM/ORIENTATION: Yes alert Skin: COMMON NORMALS: no rashes or lesions noted and turgor normal GENERAL SKIN EXAM: no rashes or lesions noted and turgor normal Course Consultations: Consultation #1: I discussed current situation with Dr. Peng her primary care doctor who did not complete any intake information for local longterm. She is happy and willing to assist them cannot do anything to make that happen this evening.. Time: 18:48 Vital Signs: Vital signs: Vital Signs Temperature 98.2 F 07/11/22 18:18 Pulse Rate 72 07/11/22 18:18 Respiratory Rate 18 07/11/22 18:18 Pulse Oximetry 96 07/11/22 18:18 Oxygen Delivery Me thod 07/11/22 18:18 MDM - Recheck/Abnormal Lab/Rx Medical Decision Making Other Nael patient came to the emergency department accompanied by her spouse because they were confused as to he had paperwork to get admitted to a local longterm. We did an exhaustive search through our resources in the emergency department and also contacted their primary care physician but did not locate any such paperwork or knowledge of same. I do not have outreach and education social worker or case management available and there is no way we can affect a transfer to a longterm at this time. He does not have any acute illness or other criteria that would require observation and or admission to the hospital at this time. I have placed a consult into outreach and education social worker so they can contact them tomorrow to initiate this process. She has been recently admitted to the hospital and so should should qualify under the usual 72-hour rule. No evidence of an acute emergency medical condition at this time. Medical screening examination complete. Medical Records I reviewed the patient's medical records. Discharge Plan Discharge Patient Disposition: Home Clinical Impression: History of traumatic brain injury, Deficient knowledge of community resources Condition: Stable Prescriptions: No Action nitroglycerin [Nitrostat] 0.4 mg Tablet, Sublingual 0.4 mg SUBLINGUAL Q5M PRN (Reason: Chest Pain) Rx Instructions: do not exceed 3 doses per episode lisinopril 20 mg Tablet 40 mg PO DAILY Qty: 60 4RF chlorthalidone 25 mg Tablet 12.5 mg PO DAILY Qty: 60 4RF atorvastatin 40 mg tablet 40 mg PO QPM Qty: 90 0RF amlodipine 10 mg Tablet 10 mg PO DAILY Qty: 90 3RF potassium chloride 10 mEq tablet extended release 10 meq PO DAILY Qty: 7 0RF Discharge Orders: Discharge ED (Routine); Ordered 07/11/22 Ordered By: Parminder Olivo Referrals: Silvia Peng MD [Primary Care Provider] - 1-3 days (Long-term care facility placement) Discharge Diet: Usual diet Discharge Activity: Resume usual activity Patient Instructions: Opioid Safety Activity Restrictions/Additional Instructions: Continue usual medications and activity. Case management from the hospital should contact to in the next 24 hours to help and assist in long-term care placement. If any new or worsening or other concerning symptoms return to this or the nearest emergency department. Coding Level of Care Code ED Blueprint Engineer for Loulou Borrero Exam Comprehensive
--- NOTE | 2022-07-11 19:14 | PC.NURSE ---
Pt is ready for discharge and pt's stated that they needed to leave to get their truck which they had left at a friend's house. Pt's had brought her in trying to get placement for her in a chcf according to the report received by this nurse. was evasive answering questions regarding their expected return time. Pt's left at approx 1900.
[2022-07-11 19:53] VITALS: BP 163/72; PULSE 67; RESP 18; O2SAT 96
--- NOTE | 2022-07-12 09:58 | DCPLANNER ---
senior procurement manager had message to speak with patient about possible half-way placement. senior procurement manager called phone number [phone], unable to speak with patient or her spouse, a voicemail was left for patient to return case resource manager phone call.
== END 2022-07-11 19:44 | disposition home or self-care (01) ==
PROVIDERS: Emergency Provider Emergency Medicine; PCP Family Medicine
DX: Z04.89 Encounter for examination and observation for other specified reasons (principal); Z87.820 Personal history of traumatic brain injury; I25.10 Atherosclerotic heart disease of native coronary artery without angina pectoris; E78.5 Hyperlipidemia, unspecified; I10 Essential (primary) hypertension; Z87.891 Personal history of nicotine dependence
CPT/HCPCS: 99281

== ENCOUNTER 2022-07-30 05:26 | Emergency (ER) | payer MEDICARE, OTHER, SELFPAY ==
--- NOTE | 2022-07-30 05:27 | CTR_ITS ---
PROCEDURE INFORMATION: Exam: CT Cervical Spine Without Contrast Exam date and time: 07/30/2022 5:32 AM Age: 72 years old Clinical indication: Injury or trauma; Fall; Blunt trauma TECHNIQUE: Imaging protocol: Computed tomography of the cervical spine without contrast. Radiation optimization: All CT scans at this facility use at least one of these dose optimization techniques: automated exposure control; mA and/or kV adjustment per patient size (includes targeted exams where dose is matched to clinical indication); or iterative reconstruction. COMPARISON: CT cervical spin wo con* [id number] 07/11/2022 4:07 AM RADIATION DOSE METRICS: Total DLP (mGy-cm): 148.27 FINDINGS: Bones/joints: There are moderate to severe degenerative changes present. There has been an anterior fusion of C5 and C6 which appears intact. Intervertebral strut material appears well incorporated. Normal alignment. No acute fractures. Thyroid: There is a 2.7 x 1.8 cm cyst or nodule in the left lobe and isthmus of the thyroid. Lungs: Lung apices are normal. Soft tissues: Unremarkable. CT/CT cervical spin wo con* [id number] IMPRESSION: No acute injury. Thyroid cyst or nodule. Ultrasound may be helpful in further evaluating this. COMMENTS: Consistent with the [employer]'s Incidental Findings Committee white paper (J Am Missy Radiol 2015): In patients aged 35 years and older with an incidental thyroid nodule equal to or greater than 1.[address], MRI or extrathyroidal US, further evaluation with dedicated thyroid US is recommended for patients with normal life expectancy and without comorbidities. For smaller nodules without suspicious features, no further evaluation or follow up is recommended.
--- NOTE | 2022-07-30 05:27 | XRR_ITS ---
PROCEDURE INFORMATION: Exam: XR Chest Exam date and time: 07/30/2022 5:47 AM Age: 72 years old Clinical indication: Injury or trauma; Fall; Blunt trauma (contusions or hematomas); Injury date: This am; Injury details: PT fell no chest compaints, PT unable to give good history TECHNIQUE: Imaging protocol: Radiologic exam of the chest. Views: 1 view. COMPARISON: CR XR chest 1V portable [id number] 07/09/2022 10:40 AM FINDINGS: Lungs: The lung parenchyma is clear. Pleural spaces: No pneumothorax. No pleural effusion. Heart/Mediastinum: The cardiomediastinal silhouette is within normal limits. Bones/joints: Cervical spinal fixation hardware. Partially visualized lumbar fixation hardware. XR/XR chest 1V portable [id number] IMPRESSION: No acute cardiopulmonary abnormality identified.
--- NOTE | 2022-07-30 05:27 | CTR_ITS ---
PROCEDURE INFORMATION: Exam: CT Head Without Contrast Exam date and time: 07/30/2022 5:29 AM Age: 72 years old Clinical indication: Injury or trauma; Fall; Blunt trauma (contusions or hematomas) TECHNIQUE: Imaging protocol: Computed tomography of the head without contrast. Radiation optimization: All CT scans at this facility use at least one of these dose optimization techniques: automated exposure control; mA and/or kV adjustment per patient size (includes targeted exams where dose is matched to clinical indication); or iterative reconstruction. COMPARISON: CT head wo con* [id number] 07/11/2022 4:05 AM RADIATION DOSE METRICS: Total DLP (mGy-cm): 1070.88 FINDINGS: Brain: Age appropriate atrophy and small vessel ischemic change. No evidence of intracranial hemorrhage, mass effect, midline shift or extra-axial fluid collections. Midline structures are normal. Manuel-white matter differentiation is normal. Cerebral ventricles: No ventriculomegaly. Paranasal sinuses: Mucosal thickening in the ethmoid sinuses. Mastoid air cells: Visualized mastoid air cells are well aerated. Bones/joints: Unremarkable. No acute fracture. Soft tissues: Unremarkable. Vasculature: Carotid and vertebral artery atherosclerotic calcification. CT/CT head wo con* [id number] IMPRESSION: No acute intracranial injury.
--- NOTE | 2022-07-30 05:28 | ED_ITS ---
Documented by User: Daniel Sorenson MD 07/30/22 05:30 HPI - Fall General: Chief Complaint: Trauma Stated Complaint: Trauma Time Seen by Provider: 07/30/22 05:27 Source: patient and EMS Mode of arrival: EMS Limitations: no limitations History of Present Illness: 72-year-old female who is well-known to the ER. Per EMS patient had fell out of her bed tonight states that since she fell she has been confused unknown when her last known normal actually was when she did fall out of the bed she does have a abrasion over left eyebrow. Patient here is able to respond to questions able to tell me her name but is confused otherwise when asked where she hurts she states that she hurts that her head. Review of Systems 2 General: Reports: ROS unobtainable due to mental status PFSH ED PFSH: Medical History Abdominal aortic aneurysm (AAA) 3.0 cm to 5.0 cm in diameter in female Abnormal EKG 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 by CTA Jan 2018 Arnold-Chiari malformation, type I Atrophy of left kidney Coronary artery disease Esophageal thickening incidental finding on CT 03/2021 High risk medication use Hyperlipidemia Hypertension, essential Mesenteric artery stenosis Obstructive sleep apnea Peripheral vascular disease multiple vessels Polypharmacy Primary osteoarthritis of knees, bilateral Seropositive rheumatoid arthritis of multiple joints Thyroid nodule incidental indeterminant finding on CT 03/2021 Uncontrolled hypertension UTI (urinary tract infection) Surgical History H/O hysterectomy with oophorectomy History of appendectomy History of total right knee replacement (TKR) S/P carpal tunnel release right, Dr. Hazel, 2014 S/P cataract extraction and insertion of intraocular lens bilateral S/P cervical spinal fusion ACDFF Dr. Dawn 12/07/2015 S/P right coronary artery (RCA) stent placement (~05/2019) Family History Mother CAD (coronary artery disease) Father No problems noted. Other Cancer Rheumatoid arthritis Denies family history of Chronic kidney disease (CKD) Systemic lupus erythematosus (SLE) in adult Lung disease Hypertension Social History Smoking and tobacco status: former smoker Alcohol intake: never Marital status: Current occupational status: retired History of recent travel: No (12/10/19) Physical Exam Const: COMMON NORMALS: negative for patient oriented x3 HENMT: COMMON NORMALS: normocephalic HEAD & SCALP: normocephalic OTHER: abrasion over left eye Eye: COMMON NORMALS: Equal, round and reactive pupils present and EOMs intact bilaterally PUPIL: Yes Equal, round and reactive pupils present Neck/C-Spine: COMMON NORMALS: full ROM and supple Chest: COMMONS NORMALS: normal inspection of the chest and normal palpation of entire chest wall Resp: COMMON NORMALS: normal respiratory effort, No retractions, No use of accessory muscles and clear to auscultation bilaterally AUSCULTATION: clear t o auscultation bilaterally Cardio: COMMON NORMALS: regular rate, regular rhythm and No murmurs present (Cardio) RATE: regular rate RHYTHM: regular rhythm GI: COMMON NORMALS: Normal to inspection, nondistended, normoactive bowel sounds present, Soft to palpation, non-tender and no masses PALPATION: Yes Soft to palpation Extremity: COMMON NORMALS: normal to inspection and full ROM Neuro: COMMON NORMALS: moves all extremities and no focal motor deficits; negative for patient oriented x3 Psych: COMMON NORMALS: cooperative; negative for mental status grossly normal Skin: COMMON NORMALS: no rashes or lesions noted and no wounds GENERAL SKIN EXAM: no rashes or lesions noted Course Vital Signs: Vital signs: Vital Signs Temperature 97.9 F 07/30/22 08:30 Pulse Rate 83 07/30/22 08:30 Respiratory Rate 18 07/30/22 08:30 Blood Pressure 197/83 07/30/22 08:30 Pulse Oximetry 96 07/30/22 08:30 Oxygen Delivery Me thod 07/30/22 06:15 MDM - Fall Lab Data : 07/30/22 05:45 07/30/22 05:45 Radiology Impressions Cervical Spine CT 07/30/22 05:27 IMPRESSION: No acute injury. Thyroid cyst or nodule. Ultrasound may be helpful in further evaluating this. COMMENTS: Consistent with the [employer]'s Incidental Findings Committee white paper (J Am Missy Radiol 2015): In patients aged 35 years and older with an incidental thyroid nodule equal to or greater than 1.[address], MRI or extrathyroidal US, further evaluation with dedicated thyroid US is recommended for patients with normal life expectancy and without comorbidities. For smaller nodules without suspicious features, no further evaluation or follow up is recommended. Chest X-Ray 07/30/22 05:27 IMPRESSION: No acute cardiopulmonary abnormality identified. Head CT 07/30/22 05:27 IMPRESSION: No acute intracranial injury. Laboratory Results WBC 4.1 10^3/uL (4.0-10.0) 07/30/22 05:45 RBC 4.44 10^6/uL (4.1-5.3) 07/30/22 05:45 Hgb 12.1 g/dL (11.5-15.3) 07/30/22 05:45 Hct 38.5 % (37.0-47.0) 07/30/22 05:45 MCV 86.7 fl (81-99) 07/30/22 05:45 MCH 27.3 pg (28.0-34.0) L 07/30/22 05:45 MCHC 31.4 g/dL (30.0-36.0) 07/30/22 05:45 RDW 15.3 % (12.1-15.1) H 07/30/22 05:45 Plt Count 181 10^3/cmm (130-400) 07/30/22 05:45 MPV 10.9 fL (7.4-10.4) H 07/30/22 05:45 Neut % (Auto) 55.4 % 07/30/22 05:45 Lymph % (Auto) 31.2 % 07/30/22 05:45 [place] % (Auto) 11.0 % 07/30/22 05:45 Eos % (Auto) 1.7 % 07/30/22 05:45 Baso % (Auto) 0.7 % 07/30/22 05:45 Neut # (Auto) 2.27 10^3/uL (1.8-7.7) 07/30/22 05:45 Lymph # (Auto) 1.3 10^3/uL (0.8-4.8) 07/30/22 05:45 [place] # (Auto) 0.5 10^3/uL (0.2-0.9) 07/30/22 05:45 Eos # (Auto) 0.1 10^3/uL (0.0-0.8) 07/30/22 05:45 Baso # (Auto) 0.0 10^3/uL (0.0-0.1) 07/30/22 05:45 Nucleated RBC % (auto) 0 % 07/30/22 05:45 Nucleated RBCs # 0.0 /100WBC 07/30/22 05:45 PT 13.80 SECONDS (12.1-14.9) 07/30/22 05:45 INR 1.03 (0.8-1.2) 07/30/22 05:45 Sodium 143 mmol/L (136-145) 07/30/22 05:45 Potassium 3.5 mmol/L (3.5-5.1) 07/30/22 05:45 Chloride 106 mmol/L (98-107) 07/30/22 05:45 Carbon Dioxide 30 mmol/L (22-29) H 07/30/22 05:45 Anion Gap 10.5 (5-19) 07/30/22 05:45 BUN 14 mg/dL (8-23) 07/30/22 05:45 Creatinine 1.1 mg/dL (0.5-0.9) H 07/30/22 05:45 GFR Calculation Not Reportable 07/30/22 05:45 Glucose 101 mg/dL (65-115) 07/30/22 05:45 POC Glucose 93 mg/dL (70-110) 07/30/22 05:44 Calculated Osmolality 297 mOsm/kg (285-295) H 07/30/22 05:45 Calcium 9.5 mg/dL (8.5-10.5) 07/30/22 05:45 Total Bilirubin 0.5 mg/dL (0.15-1.2) 07/30/22 05:45 AST 18 U/L (0-32) 07/30/22 05:45 ALT 12 U/L (0-33) 07/30/22 05:45 Alkaline Phosphatase 125 U/L (35-105) H 07/30/22 05:45 Total Protein 5.7 g/dL (6.6-8.7) L 07/30/22 05:45 Albumin 3.5 g/dL (3.5-5.2) 07/30/22 05:45 Globulin 2.2 g/dL (1.3-4.6) 07/30/22 05:45 Discharge Plan Discharge Patient Disposition: Home Clinical Impression: Fall from bed, Hypertension, Facial laceration Condition: Stable Prescriptions: Continued atorvastatin 40 mg tablet 40 mg PO QPM Qty: 30 0RF lisinopril 20 mg Tablet 40 mg PO DAILY Qty: 60 0RF amlodipine 10 mg Tablet 10 mg PO DAILY Qty: 30 0RF Discontinued chlorthalidone 25 mg Tablet 12.5 mg PO DAILY Qty: 60 4RF potassium chloride 10 mEq tablet extended release 10 meq PO DAILY Qty: 7 0RF No Action nitroglycerin [Nitrostat] 0.4 mg Tablet, Sublingual 0.4 mg SUBLINGUAL Q5M PRN (Reason: Chest Pain) Rx Instructions: do not exceed 3 doses per episode Discharge Orders: Discharge ED (Routine); Ordered 07/30/22 Ordered By: Pradip Brown Referrals: Silvia Peng MD [Primary Care Provider] - Patient Instructions: Opioid Safety Activity Restrictions/Additional Instructions: Follow-up with your primary care doctor within the next week to reevaluate blood pressure. Sign Out Sign Out Data: Patient Sign Out occurred on 07/30/22 at 06:00. Patient's care was discussed, and care was transferred from to Pradip Brown DO. Coding Level of Care Code ED Sewing Machine Attachment Tester for Chg Fwd Exam Comprehensive Documented by User: Pradip Brown DO 08/03/22 06:35 HPI - Fall General: Chief Complaint: Trauma Stated Complaint: Trauma Time Seen by Provider: 07/30/22 05:27 History of Present Illness: MD complaint: fall Onset (ago): hour(s) Fall from: out of bed Fall witnessed: yes, by family Place fall occurred: home Loss of consciousness: None Prolonged down time: no Symptoms prior to fall: none Context: history of frequent falls Location of injury: head and face Associated symptoms-after fall: Denies abdominal pain, chest pain, confusion, difficulty walking, headache(s), hematuria, lightheadedness, neck pain, numbness, short of breath, vertigo or weakness Review of Systems Const: Reports: malaise; Denies: fever(s), chills, body aches or change in appetite Card: Denies: chest pain or lightheadedness Resp: Denies: dyspnea, productive cough or non-productive cough GI: Denies: abdominal pain, nausea or vomiting : Denies: hematuria Musc: Denies: neck pain Skin/Breast: Reports: other (Bruising); Denies: rash or pruritus Neuro: Denies: headache(s), difficulty walking, vertigo or confusion PFSH ED PFSH: Medical History Abdominal aortic aneurysm (AAA) 3.0 cm to 5.0 cm in diameter in female Abnormal EKG 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 by CTA Jan 2018 Arnold-Chiari malformation, type I Atrophy of left kidney Coronary artery disease Esophageal thickening incidental finding on CT 03/2021 High risk medication use Hyperlipidemia Hypertension, essential Mesenteric artery stenosis Obstructive sleep apnea Peripheral vascular disease multiple vessels Polypharmacy Primary osteoarthritis of knees, bilateral Seropositive rheumatoid arthritis of multiple joints Thyroid nodule incidental indeterminant finding on CT 03/2021 Uncontrolled hypertension UTI (urinary tract infection) Surgical History H/O hysterectomy with oophorectomy History of appendectomy History of total right knee replacement (TKR) S/P carpal tunnel release right, Dr. Hazel, 2014 S/P cataract extraction and insertion of intraocular lens bilateral S/P cervical spinal fusion ACDFF Dr. Dawn 12/07/2015 S/P right coronary artery (RCA) stent placement (~05/2019) Family History Mother CAD (coronary artery disease) Father No problems noted. Other Cancer Rheumatoid arthritis Denies family history of Chronic kidney disease (CKD) Systemic lupus erythematosus (SLE) in adult Lung disease Hypertension Social History Smoking and tobacco status: former smoker Alcohol intake: never Marital status: Current occupational status: retired History of recent travel: No (12/10/19) Physical Exam Const: COMMON NORMALS: no acute distress GENERAL APPEARANCE: cooperative and comfortable ORIENTATION/CONSCIOUSNESS: Yes awake HENMT: COMMON NORMALS: normocephalic and hearing grossly normal bilaterally HEAD & SCALP: normocephalic OTHER: Small non-gaping laceration to lateral aspect left supraorbital ridge no active bleeding adjacent to it there is a small abrasion. Wound Steri-Stripped Eye: COMMON NORMALS: Equal, round and reactive pupils present, EOMs intact bilaterally, conjunctivae normal and no scleral icterus CONJUNCTIVA: Yes conjunctivae normal PUPIL: Yes Equal, round and reactive pupils present Resp: COMMON NORMALS: normal respiratory effort, No retractions, No use of accessory muscles and clear to auscultation bilaterally AUSCULTATION: clear to auscultation bilaterally Cardio: COMMON NORMALS: regular rate, regular rhythm and No murmurs present (Cardio) RATE: regular rate RHYTHM: regular rhythm GI: COMMON NORMALS: Soft to palpation and No hepatosplenomegaly present AUSCULTATION: Yes normoactive bowel sounds PALPATION: Yes Soft to palpation, No Tenderness to palpation present (GI), No Guarding due to palpation present (GI) and Yes No hepatosplenomegaly present Extremity: COMMON NORMALS: normal to inspection, capillary refill normal, no clubbing, cyanosis or edema, no calf tenderness and no pedal edema Skin: COMMON NORMALS: no rashes or lesions noted GENERAL SKIN EXAM: no raphael hes or lesions noted Course Vital Signs: Vital signs: Vital Signs Temperature 97.9 F 07/30/22 08:30 Pulse Rate 83 07/30/22 08:30 Respiratory Rate 18 07/30/22 08:30 Blood Pressure 197/83 07/30/22 08:30 Pulse Oximetry 96 07/30/22 08:30 Oxygen Delivery Me thod 07/30/22 06:15 MDM - Fall Medical Decision Making History of frequent falls. Imaging negative labs unremarkable discharge patient home Steri-Strips applied. Discussed with probably be sue to consider alternate living conditions such as [facility] I do not think that she will qualify for assisted living. Initially seen by Dr. Colby hooks note states that she is obtunded but will talk when I seen the patient she was awake alert and oriented remember exactly what it happened and how she got here. She was initially hypertensive Dr. Sorenson treated with IV medications. In talking to her and her she does have antihypertensives at home but she is not been taking them. Her says she refuses to take her medications she has had them for quite some time he says several of them are very old. Talk to the patient she said she was not aware that her blood pressure was elevated. At this point probably better just to have him discard all of the old medications and I will write new prescriptions for her amlodipine atorvastatin lisinopril. She should follow-up with her primary care doctor within the week to reevaluate. Also strongly encouraged him to pursue different level of care particularly [facility]. Medical Records I reviewed the patient's medical records. Lab Data I reviewed the patient's lab results. : 07/30/22 05:45 07/30/22 05:45 Radiology Impressions Cervical Spine CT 07/30/22 05:27 IMPRESSION: No acute injury. Thyroid cyst or nodule. Ultrasound may be helpful in further evaluating this. COMMENTS: Consistent with the [employer] [employer]'s Incidental Findings Committee white paper (J Am Missy Radiol 2015): In patients aged 35 years and older with an incidental thyroid nodule equal to or greater than 1.[address], MRI or extrathyroidal US, further evaluation with dedicated thyroid US is recommended for patients with normal life expectancy and without comorbidities. For smaller nodules without suspicious features, no further evaluation or follow up is recommended. Chest X-Ray 07/30/22 05:27 IMPRESSION: No acute cardiopulmonary abnormality identified. Head CT 07/30/22 05:27 IMPRESSION: No acute intracranial injury. Laboratory Results WBC 4.1 10^3/uL (4.0-10.0) 07/30/22 05:45 RBC 4.44 10^6/uL (4.1-5.3) 07/30/22 05:45 Hgb 12.1 g/dL (11.5-15.3) 07/30/22 05:45 Hct 38.5 % (37.0-47.0) 07/30/22 05:45 MCV 86.7 fl (81-99) 07/30/22 05:45 MCH 27.3 pg (28.0-34.0) L 07/30/22 05:45 MCHC 31.4 g/dL (30.0-36.0) 07/30/22 05:45 RDW 15.3 % (12.1-15.1) H 07/30/22 05:45 Plt Count 181 10^3/cmm (130-400) 07/30/22 05:45 MPV 10.9 fL (7.4-10.4) H 07/30/22 05:45 Neut % (Auto) 55.4 % 07/30/22 05:45 Lymph % (Auto) 31.2 % 07/30/22 05:45 [place] % (Auto) 11.0 % 07/30/22 05:45 Eos % (Auto) 1.7 % 07/30/22 05:45 Baso % (Auto) 0.7 % 07/30/22 05:45 Neut # (Auto) 2.27 10^3/uL (1.8-7.7) 07/30/22 05:45 Lymph # (Auto) 1.3 10^3/uL (0.8-4.8) 07/30/22 05:45 [place] # (Auto) 0.5 10^3/uL (0.2-0.9) 07/30/22 05:45 Eos # (Auto) 0.1 10^3/uL (0.0-0.8) 07/30/22 05:45 Baso # (Auto) 0.0 10^3/uL (0.0-0.1) 07/30/22 05:45 Nucleated RBC % (auto) 0 % 07/30/22 05:45 Nucleated RBCs # 0.0 /100WBC 07/30/22 05:45 PT 13.80 SECONDS (12.1-14.9) 07/30/22 05:45 INR 1.03 (0.8-1.2) 07/30/22 05:45 Sodium 143 mmol/L (136-145) 07/30/22 05:45 Potassium 3.5 mmol/L (3.5-5.1) 07/30/22 05:45 Chloride 106 mmol/L (98-107) 07/30/22 05:45 Carbon Dioxide 30 mmol/L (22-29) H 07/30/22 05:45 Anion Gap 10.5 (5-19) 07/30/22 05:45 BUN 14 mg/dL (8-23) 07/30/22 05:45 Creatinine 1.1 mg/dL (0.5-0.9) H 07/30/22 05:45 GFR Calculation Not Reportable 07/30/22 05:45 Glucose 101 mg/dL (65-115) 07/30/22 05:45 POC Glucose 93 mg/dL (70-110) 07/30/22 05:44 Calculated Osmolality 297 mOsm/kg (285-295) H 07/30/22 05:45 Calcium 9.5 mg/dL (8.5-10.5) 07/30/22 05:45 Total Bilirubin 0.5 mg/dL (0.15-1.2) 07/30/22 05:45 AST 18 U/L (0-32) 07/30/22 05:45 ALT 12 U/L (0-33) 07/30/22 05:45 Alkaline Phosphatase 125 U/L (35-105) H 07/30/22 05:45 Total Protein 5.7 g/dL (6.6-8.7) L 07/30/22 05:45 Albumin 3.5 g/dL (3.5-5.2) 07/30/22 05:45 Globulin 2.2 g/dL (1.3-4.6) 07/30/22 05:45 Discharge Plan Discharge Patient Disposition: Home Clinical Impression: Fall from bed, Hypertension, Facial laceration Condition: Stable Prescriptions: Continued atorvastatin 40 mg tablet 40 mg PO QPM Qty: 30 0RF lisinopril 20 mg Tablet 40 mg PO DAILY Qty: 60 0RF amlodipine 10 mg Tablet 10 mg PO DAILY Qty: 30 0RF Discontinued chlorthalidone 25 mg Tablet 12.5 mg PO DAILY Qty: 60 4RF potassium chloride 10 mEq tablet extended release 10 meq PO DAILY Qty: 7 0RF No Action nitroglycerin [Nitrostat] 0.4 mg Tablet, Sublingual 0.4 mg SUBLINGUAL Q5M PRN (Reason: Chest Pain) Rx Instructions: do not exceed 3 doses per episode Discharge Orders: Discharge ED (Routine); Ordered 07/30/22 Ordered By: Pradip Brown Referrals: Silvia Peng MD [Primary Care Provider] - Patient Instructions: Opioid Safety Activity Restrictions/Additional Instructions: Follow-up with your primary care doctor within the next week to reevaluate blood pressure. Sign Out Sign Out Data: Patient Sign Out occurred on 07/30/22 at 06:00. Patient's care was discussed, and care was transferred from to Pradip Brown DO. Coding Level of Care Code ED Sewing Machine Attachment Tester for Ludmilag Fwd Exam Comprehensive
[2022-07-30 05:40] VITALS: BP 251/105; PULSE 53; RESP 16; TEMP 36.6; O2SAT 94
--- NOTE | 2022-07-30 05:43 | ECG_ITS ---
[facility] Test Date: 2022-07-30 Pat Name: Rosie Martinez Department: Room: Gender: Female Research Executive: : 1950 Requested By: Daniel Sorenson Order Number: [id number] Carlos MD: Jamie Ordaz M.D. Measurements Intervals [place] Rate: 55 P: 81 MD: 160 QRS: 67 QRSD: 91 T: 0 QT: 243 QTc: 234 Interpretive Statements SINUS BRADYCARDIA NONSPECIFIC ST & T-WAVE ABNORMALITY Compared to ECG 07/11/2022 04:20:16 No significant changes Electronically Signed On 07-30-2022 16:26:44 CDT by Jamie Ordaz M.D. [id number]
[2022-07-30 05:46] LABS: Glucose Point of Care 93 mg/dL (70-110)
[2022-07-30] MEDS: hyDRALAzine 20 mg/mL INJ 1 mL 10 MG IVP (05:50)
[2022-07-30 05:52] LABS: Basophils % 0.7 %; Eosinophils # 0.1 10^3/uL (0.0-0.8); Eosinophils % 1.7 %; Hematocrit 38.5 % (37.0-47.0); Hemoglobin 12.1 g/dL (11.5-15.3); Lymphocytes # 1.3 10^3/uL (0.8-4.8); Lymphocytes % 31.2 %; Mean Corpuscular HGB Conc 31.4 g/dL (30.0-36.0); Mean Corpuscular Hemoglobin 27.3 pg (28.0-34.0); Mean Corpuscular Volume 86.7 fl (81-99); Mean Platelet Volume 10.9 fL (7.4-10.4); Monocytes # 0.5 10^3/uL (0.2-0.9); Neutrophils # 2.27 10^3/uL (1.8-7.7); Neutrophils % 55.4 %; Nucleated Red Blood Cells % 0 %; Platelet Count 181 10^3/cmm (130-400); Red Blood Count 4.44 10^6/uL (4.1-5.3); Red Cell Distribution Width 15.3 % (12.1-15.1); White Blood Count 4.1 10^3/uL (4.0-10.0)
[2022-07-30 06:02] VITALS: BP 251/105; PULSE 65; RESP 18
[2022-07-30 06:12] LABS: INR 1.03 (0.8-1.2)
[2022-07-30 06:14] LABS: Alanine Aminotransferase 12 U/L (0-33); Albumin Level 3.5 g/dL (3.5-5.2); Alkaline Phosphatase 125 U/L (35-105); Anion Gap 10.5 (5-19); Aspartate Amino Transferase 18 U/L (0-32); Blood Urea Nitrogen 14 mg/dL (8-23); Calcium 9.5 mg/dL (8.5-10.5); Carbon Dioxide 30 mmol/L (22-29); Chloride 106 mmol/L (98-107); Globulin 2.2 g/dL (1.3-4.6); Glucose 101 mg/dL (65-115); Osmolality Calculated 297 mOsm/kg (285-295); Potassium 3.5 mmol/L (3.5-5.1); Sodium 143 mmol/L (136-145); Total Bilirubin 0.5 mg/dL (0.15-1.2); Total Protein 5.7 g/dL (6.6-8.7)
[2022-07-30 06:15] VITALS: BP 234/90; PULSE 83; RESP 14; O2SAT 98
--- NOTE | 2022-07-30 07:20 | PC.NURSE ---
PT ASSISTED ON AND OFF OF BED KEENE.
--- NOTE | 2022-07-30 07:35 | PC.NURSE ---
PER DR. MOHAMUD VO 2 STERISTRIPS APPLIED TO SUPERIOR LEFT PERIORBITAL LACERATION. PT THEN PLACED BACK ON BED KEENE PER PT REQUEST.
[2022-07-30] MEDS: lisinopril 20 mg Tablet 40 MG PO (07:59)
[2022-07-30] MEDS: amlodipine 10 mg Tablet PO (07:59)
[2022-07-30] MEDS: hyDRALAzine 20 mg/mL INJ 1 mL 5 MG IVP (07:59)
[2022-07-30] MEDS: enalaprilat 1.25 mg/mL Inj IVP (07:59)
[2022-07-30 08:30] VITALS: BP 197/83; PULSE 83; RESP 18; TEMP 36.6; O2SAT 96
== END 2022-07-30 08:32 | disposition home or self-care (01) ==
PROVIDERS: Emergency Medicine; Emergency Provider Family Medicine; PCP Family Medicine
DX: S01.112A Laceration without foreign body of left eyelid and periocular area, initial encounter (principal); S00.212A Abrasion of left eyelid and periocular area, initial encounter; I10 Essential (primary) hypertension; Z87.891 Personal history of nicotine dependence; I25.10 Atherosclerotic heart disease of native coronary artery without angina pectoris; E78.5 Hyperlipidemia, unspecified; W06.XXXA Fall from bed, initial encounter
CPT/HCPCS: 36416; 70450; 71045; 72125; 80053; 82962; 85025; 85610; 93005; 96374; 96375; 96376; 99285; J0360; J3490

== ENCOUNTER 2022-08-22 19:39 | Emergency (ER) | payer MEDICARE, OTHER, SELFPAY ==
--- NOTE | 2022-08-22 19:41 | XRR_ITS ---
PROCEDURE INFORMATION: Exam: XR Chest Exam date and time: 08/22/2022 7:48 PM Age: 72 years old Clinical indication: Pain; Chest pressure; Additional info: Chest pain TECHNIQUE: Imaging protocol: Radiologic exam of the chest. Views: 1 view. COMPARISON: CR (CHEST, ) 07/30/2022 5:47 AM FINDINGS: Lungs: Unremarkable. No consolidation. Pleural spaces: Unremarkable. No pleural effusion. No pneumothorax. Heart/Mediastinum: Unremarkable. No cardiomegaly. Bones/joints: Unremarkable. XR/XR chest 1V portable [id number] IMPRESSION: No acute findings.
--- NOTE | 2022-08-22 19:42 | ECG_ITS ---
[facility] Test Date: 2022-08-22 Pat Name: Rosie Martinez Department: Room: Gender: Female Charge Rn: : 1950 Requested By: Franck Mao Order Number: [id number] Reading MD: Karime Solano M.D. Measurements Intervals [place] Rate: 66 P: 64 [place]: 152 QRS: 8 QRSD: 82 T: 45 QT: 401 QTc: 423 Interpretive Statements SINUS RHYTHM Compared to ECG 07/30/2022 05:43:58 Sinus bradycardia no longer present T-wave abnormality no longer present Electronically Signed On 08-22-2022 20:45:57 CDT by Karime Solano M.D. [id number]
[2022-08-22 19:43] VITALS: BP 255/97; PULSE 73; RESP 18; TEMP 37.2; O2SAT 95; BMI 23.5
--- NOTE | 2022-08-22 19:47 | CTR_ITS ---
PROCEDURE INFORMATION: Exam: CT Abdomen And Pelvis With Contrast Exam date and time: 08/22/2022 8:03 PM Age: 72 years old Clinical indication: Abdominal pain; Localized; Left lower quadrant (llq); Prior surgery; Surgery type: Hysterectomy; Patient HX: C/O llq pain; Additional info: Llq abdominal pain TECHNIQUE: Imaging protocol: Computed tomography of the abdomen and pelvis with contrast. Radiation optimization: All CT scans at this facility use at least one of these dose optimization techniques: automated exposure control; mA and/or kV adjustment per patient size (includes targeted exams where dose is matched to clinical indication); or iterative reconstruction. Contrast material: OMNI 350; Contrast volume: 80 ml; Contrast route: INTRAVENOUS (IV); COMPARISON: [place] [id number] 06/01/2022 9:23 PM RADIATION DOSE METRICS: Total DLP (mGy-cm): 486.23 FINDINGS: Liver: Normal. No mass. Gallbladder and bile ducts: Normal. No calcified stones. No ductal dilation. Pancreas: Normal. No ductal dilation. Spleen: Normal. No splenomegaly. Adrenal glands: Normal. No mass. Kidneys and ureters: Left kidney appears chronically atrophy with a benign cyst, negative for follow-up advised. Right kidney nonobstructing calyceal stone. Stomach and bowel: Diverticulosis without diverticulitis. Appendix: No evidence of appendicitis. Intraperitoneal space: Unremarkable. No free air. No significant fluid collection. Vasculature: Diffuse abdominal aorta aneurysmal dilation measuring 4.5 cm without rupture. Lymph nodes: Unremarkable. No enlarged lymph nodes. Urinary bladder: Unremarkable as visualized. Reproductive: Unremarkable as visualized. Bones/joints: Lumbar spine surgical hardware seen in place. Soft tissues: Unremarkable. CT/CT abdomen pelvis w con* [id number] IMPRESSION: 1. Negative for acute inflammatory process in the abdomen or pelvis. 2. Diffuse abdominal aorta aneurysmal dilation measuring 4.5 cm without rupture. 3. Left kidney appears chronically atrophy with a benign cyst, negative for follow-up advised. 4. Right kidney nonobstructing calyceal stone. 5. Diverticulosis without diverticulitis. 6. Lumbar spine surgical hardware seen in place. COMMENTS: Consistent with the [place] [employer]'s Incidental Findings Committee white paper (J Am Missy Radiol 2018): Any incidental renal lesion less than 1 cm or classified as too small to characterize, or any incidental cystic renal lesion characterized as simple-appearing, is likely benign. No follow-up imaging is recommended for these lesions per consensus recommendations based on imaging criteria.
[2022-08-22 20:01] LABS: Basophils % 0.8 %; Eosinophils # 0.1 10^3/uL (0.0-0.8); Hematocrit 34.6 % (37.0-47.0); Hemoglobin 11.1 g/dL (11.5-15.3); Lymphocytes # 1.3 10^3/uL (0.8-4.8); Lymphocytes % 24.7 %; Mean Corpuscular HGB Conc 32.1 g/dL (30.0-36.0); Mean Corpuscular Hemoglobin 27.4 pg (28.0-34.0); Mean Corpuscular Volume 85.4 fl (81-99); Monocytes # 0.6 10^3/uL (0.2-0.9); Monocytes % 11.1 %; Neutrophils # 3.25 10^3/uL (1.8-7.7); Neutrophils % 62.2 %; Nucleated Red Blood Cells % 0 %; Platelet Count 199 10^3/cmm (130-400); Red Blood Count 4.05 10^6/uL (4.1-5.3); Red Cell Distribution Width 15.6 % (12.1-15.1); White Blood Count 5.2 10^3/uL (4.0-10.0)
[2022-08-22 20:25] LABS: Troponin(5th) Baseline 14 ng/L (0-10)
[2022-08-22 20:30] LABS: Alanine Aminotransferase 14 U/L (0-33); Albumin Level 3.7 g/dL (3.5-5.2); Alkaline Phosphatase 118 U/L (35-105); Anion Gap 11.5 (5-19); Aspartate Amino Transferase 19 U/L (0-32); Blood Urea Nitrogen 12 mg/dL (8-23); Calcium 9.3 mg/dL (8.5-10.5); Carbon Dioxide 26 mmol/L (22-29); Chloride 108 mmol/L (98-107); Creatinine Clr Calc Pharmacy 56.4012; Globulin 1.9 g/dL (1.3-4.6); Glucose 96 mg/dL (65-115); Lipase 70 U/L (13-60); Osmolality Calculated 294 mOsm/kg (285-295); Potassium 3.5 mmol/L (3.5-5.1); Sodium 142 mmol/L (136-145); Total Bilirubin 0.5 mg/dL (0.15-1.2); Total Protein 5.6 g/dL (6.6-8.7)
--- NOTE | 2022-08-22 20:44 | W.ED.CHESTPA ---
HPI - Chest Pain General: Chief Complaint: Chest Pain Stated Complaint: CP Time Seen by Provider: 08/22/22 19:40 History of Present Illness: 72-year-old female presenting today with chest pain. Patient notes chest pain or epigastric pain. She notes onset of symptoms this evening. Began about dinnertime. Pain is nonradiating. Has had pain in the past but no definitive diagnosis. She denies nausea or vomiting. She denies diarrhea. She denies shortness of breath. Pain is not worse or improved by anything. She notes she currently feels fine. Review of Systems General: Reports: 10 or more systems reviewed and unremarkable except in HPI and below PFSH ED PFSH: Medical History Abdominal aortic aneurysm (AAA) 3.0 cm to 5.0 cm in diameter in female Abnormal EKG 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 by CTA Jan 2018 Arnold-Chiari malformation, type I Atrophy of left kidney Coronary artery disease Esophageal thickening incidental finding on CT 03/2021 High risk medication use Hyperlipidemia Hypertension, essential Mesenteric artery stenosis Obstructive sleep apnea Peripheral vascular disease multiple vessels Polypharmacy Primary osteoarthritis of knees, bilateral Seropositive rheumatoid arthritis of multiple joints Thyroid nodule incidental indeterminant finding on CT 03/2021 Uncontrolled hypertension UTI (urinary tract infection) Surgical History H/O hysterectomy with oophorectomy History of appendectomy History of total right knee replacement (TKR) S/P carpal tunnel release right, Dr. Hazel, 2014 S/P cataract extraction and insertion of intraocular lens bilateral S/P cervical spinal fusion ACDFF Dr. Dawn 12/07/2015 S/P right coronary artery (RCA) stent placement (~05/2019) Family History Mother CAD (coronary artery disease) Father No problems noted. Other Cancer Rheumatoid arthritis Denies family history of Chronic kidney disease (CKD) Systemic lupus erythematosus (SLE) in adult Lung disease Hypertension Social History Smoking and tobacco status: former smoker Alcohol intake: never Marital status: Current occupational status: retired History of recent travel: No (12/10/19) Physical Exam Const: COMMON NORMALS: no acute distress, patient oriented x3 and alert GENERAL APPEARANCE: cooperative ORIENTATION/CONSCIOUSNESS: Yes awake, Yes oriented to person, Yes oriented to place and Yes oriented to time HENMT: COMMON NORMALS: normocephalic, atraumatic, external ears normal, Normal external nose present and moist oral mucous membranes HEAD & SCALP: normal to inspection, normocephalic and atraumatic NOSE: Normal external nose present GENERAL EAR: hearing grossly impaired EXTERNAL EAR: Yes external ears normal Eye: COMMON NORMALS: Equal, round and reactive pupils present, EOMs intact bilaterally, conjunctivae normal and no scleral icterus GENERAL EYE: appearance normal, both eyes and all related structures EYELID: eyelids normal CONJUNCTIVA: Yes conjunctivae normal SCLERA: sclerae normal PUPIL: Yes Equal, round and reactive pupils present Neck/C-Spine: COMMON NORMALS: full ROM, supple and no JVD GENERAL: Yes normal visual inspection Lymph: LYMPHATIC: no lymphadenopathy noted and no lymphedema noted Chest: COMMONS NORMALS: normal inspection of the chest Resp: COMMON NORMALS: normal respiratory effort, No retractions and No use of accessory muscles Cardio: COMMON NORMALS: no JVD, regular rate and regular rhythm RATE: regular rate RHYTHM: regular rhythm GI: COMMON NORMALS: Normal to inspection, nondistended, normoactive bowel sounds present : COMMON NORMALS: Yes no CVA tenderness BLADDER/KIDNEY EXAM: Yes no CVA tenderness Back/Pelvis: COMMON NORMALS: no CVA tenderness and thoracic and lumbar spine normal to inspection Extremity: COMMON NORMALS: normal to inspection, full ROM and capillary refill normal GENERAL: Yes normal exam except as noted Neuro: COMMON NORMALS: patient oriented x3, CN's II-XII intact bilaterally, moves all extremities, no focal motor deficits, no sensory deficits noted and gait normal SENSORIUM/ORIENTATION: Yes alert, Yes oriented to person, Yes oriented to place and Yes oriented to time Psych: COMMON NORMALS: mental status grossly normal, Normal thought process present, cooperative and normal affect THOUGHT PROCESS: Normal thought process present Skin: COMMON NORMALS: no rashes or lesions noted and no wounds GENERAL SKIN EXAM: no rashes or lesions noted Course Vital Signs: Vital signs: Vital Signs Temperature 98.9 F 08/22/22 19:43 Pulse Rate 84 08/22/22 21:00 Respiratory Rate 16 08/22/22 21:00 Blood Pressure 229/99 08/22/22 20:59 Pulse Oximetry 97 08/22/22 21:00 MDM - Chest Pain Medical Decision Making 72-year-old female presenting today with chest pain or epigastric pain. Patient is unclear where she actually hurts. Abdominal exam with diffuse tenderness. CT abdomen pelvis without acute abnormality. Chest x-ray is unremarkable. EKG is without evidence of acute ischemia. Initial troponin slightly elevated. Repeat troponin without significant delta change. Patient was given strict return precautions and recommended routine outpatient follow-up. Lab Data : 08/22/22 19:55 08/22/22 19:55 Radiology Impressions Chest X-Ray 08/22/22 19:41 IMPRESSION: No acute findings. Abdomen/Pelvis CT 08/22/22 19:47 IMPRESSION: 1. Negative for acute inflammatory process in the abdomen or pelvis. 2. Diffuse abdominal aorta aneurysmal dilation measuring 4.5 cm without rupture. 3. Left kidney appears chronically atrophy with a benign cyst, negative for follow-up advised. 4. Right kidney nonobstructing calyceal stone. 5. Diverticulosis without diverticulitis. 6. Lumbar spine surgical hardware seen in place. COMMENTS: Consistent with the [employer] [place] [employer]'s Incidental Findings Committee white paper (J Am Missy Radiol 2018): Any incidental renal lesion less than 1 cm or classified as too small to characterize, or any incidental cystic renal lesion characterized as simple-appearing, is likely benign. No follow-up imaging is recommended for these lesions per consensus recommendations based on imaging criteria. Laboratory Results WBC 5.2 10^3/uL (4.0-10.0) 08/22/22 19:55 RBC 4.05 10^6/uL (4.1-5.3) L 08/22/22 19:55 Hgb 11.1 g/dL (11.5-15.3) L 08/22/22 19:55 Hct 34.6 % (37.0-47.0) L 08/22/22 19:55 MCV 85.4 fl (81-99) 08/22/22 19:55 MCH 27.4 pg (28.0-34.0) L 08/22/22 19:55 MCHC 32.1 g/dL (30.0-36.0) 08/22/22 19:55 RDW 15.6 % (12.1-15.1) H 08/22/22 19:55 Plt Count 199 10^3/cmm (130-400) 08/22/22 19:55 MPV 11.0 fL (7.4-10.4) H 08/22/22 19:55 Neut % (Auto) 62.2 % 08/22/22 19:55 Lymph % (Auto) 24.7 % 08/22/22 19:55 [place] % (Auto) 11.1 % 08/22/22 19:55 Eos % (Auto) 1.0 % 08/22/22 19:55 Baso % (Auto) 0.8 % 08/22/22 19:55 Neut # (Auto) 3.25 10^3/uL (1.8-7.7) 08/22/22 19:55 Lymph # (Auto) 1.3 10^3/uL (0.8-4.8) 08/22/22 19:55 [place] # (Auto) 0.6 10^3/uL (0.2-0.9) 08/22/22 19:55 Eos # (Auto) 0.1 10^3/uL (0.0-0.8) 08/22/22 19:55 Baso # (Auto) 0.0 10^3/uL (0.0-0.1) 08/22/22 19:55 Nucleated RBC % (auto) 0 % 08/22/22 19:55 Nucleated RBCs # 0.0 /100WBC 08/22/22 19:55 Sodium 142 mmol/L (136-145) 08/22/22 19:55 Potassium 3.5 mmol/L (3.5-5.1) 08/22/22 19:55 Chloride 108 mmol/L (98-107) H 08/22/22 19:55 Carbon Dioxide 26 mmol/L (22-29) 08/22/22 19:55 Anion Gap 11.5 (5-19) 08/22/22 19:55 BUN 12 mg/dL (8-23) 08/22/22 19:55 Creatinine 0.9 mg/dL (0.5-0.9) 08/22/22 19:55 GFR Calculation Not Reportable 08/22/22 19:55 Glucose 96 mg/dL (65-115) 08/22/22 19:55 Calculated Osmolality 294 mOsm/kg (285-295) 08/22/22 19:55 Calcium 9.3 mg/dL (8.5-10.5) 08/22/22 19:55 Total Bilirubin 0.5 mg/dL (0.15-1.2) 08/22/22 19:55 AST 19 U/L (0-32) 08/22/22 19:55 ALT 14 U/L (0-33) 08/22/22 19:55 Alkaline Phosphatase 118 U/L (35-105) H 08/22/22 19:55 Troponin T Baseline 14 ng/L (0-10) H 08/22/22 19:55 Troponin T 120 Minute 13.24 ng/L (0-10) H 08/22/22 22:32 Delta Troponin T -0.76 ABS# (0-10) L 08/22/22 22:32 Total Protein 5.6 g/dL (6.6-8.7) L 08/22/22 19:55 Albumin 3.7 g/dL (3.5-5.2) 08/22/22 19:55 Globulin 1.9 g/dL (1.3-4.6) 08/22/22 19:55 Lipase 70 U/L (13-60) H 08/22/22 19:55 Discharge Plan Discharge Patient Disposition: Home Clinical Impression: Renal cyst, Abdominal aortic aneurysm (AAA) 3.0 cm to 5.0 cm in diameter in female Condition: Stable Prescriptions: No Action nitroglycerin [Nitrostat] 0.4 mg tablet, sublingual 0.4 mg SUBLINGUAL Q5M PRN (Reason: Chest Pain) Qty: 25 1RF Rx Instructions: do not exceed 3 doses per episode atorvastatin 40 mg tablet 40 mg PO QPM Qty: 30 0RF lisinopril 20 mg Tablet 40 mg PO DAILY Qty: 60 0RF amlodipine 10 mg Tablet 10 mg PO DAILY Qty: 30 0RF Discharge Orders: Discharge ED (Routine); Ordered 08/22/22 Ordered By: Franck Mao Referrals: Silvia Peng MD [Primary Care Provider] - Patient Instructions: Abdominal Pain - Adult Coding Level of Care Code ED Commercial Hvac Technician for Chg Fwd Exam Comprehensive
[2022-08-22 20:59] VITALS: BP 229/99; PULSE 77; RESP 13; O2SAT 97
[2022-08-22 21:00] VITALS: PULSE 84; RESP 16; O2SAT 97
--- NOTE | 2022-08-22 21:32 | ECG_ITS ---
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 Measurements Intervals [place] Rate: 62 P: 82 AK: 138 QRS: 25 QRSD: 85 T: 41 QT: 425 QTc: 432 Interpretive Statements SINUS RHYTHM Compared to ECG 08/22/2022 19:53:28 No significant changes Electronically Signed On 08-23-2022 16:33:09 CDT by Nikki Doe M.D. [id number]
[2022-08-22 23:12] LABS: Troponin 5 2HR 13.24 ng/L (0-10)
[2022-08-22 23:17] LABS: Troponin 5 2HR Delta -0.76 ABS# (0-10)
[2022-08-23 00:09] VITALS: BP 215/87; PULSE 66; RESP 16; O2SAT 99
== END 2022-08-23 00:10 | disposition home or self-care (01) ==
PROVIDERS: Emergency Provider Emergency Medicine; PCP Family Medicine
DX: I71.4 Abdominal aortic aneurysm, without rupture (principal); N28.1 Cyst of kidney, acquired; Z87.891 Personal history of nicotine dependence; I25.10 Atherosclerotic heart disease of native coronary artery without angina pectoris; E78.5 Hyperlipidemia, unspecified; I10 Essential (primary) hypertension
CPT/HCPCS: 71045; 74177; 80053; 83690; 84484; 85025; 93005; 99285; Q9967

== ENCOUNTER 2022-08-24 14:36 | Emergency (ER) | payer MEDICARE, OTHER, SELFPAY ==
[2022-08-24 14:37] VITALS: BP 201/108; PULSE 73; RESP 18; TEMP 37.3; O2SAT 99; BMI 17.4
--- NOTE | 2022-08-24 14:49 | ECG_ITS ---
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 Measurements Intervals [place] Rate: 71 P: 71 UT: 152 QRS: 20 QRSD: 77 T: 29 QT: 387 QTc: 422 Interpretive Statements SINUS RHYTHM NONSPECIFIC T-WAVE ABNORMALITY INTERPRETATION BASED ON A DEFAULT AGE OF 40 YEARS Compared to ECG 08/22/2022 21:32:05 T-wave abnormality now present Electronically Signed On 08-24-2022 18:12:54 CDT by Karime Solano M.D. [email or web address].[facility].[email or web address]/NU/[id number] f
--- NOTE | 2022-08-24 14:57 | ED_ITS ---
HPI - Chest Pain General: Chief Complaint: Chest Pain Stated Complaint: Hurt her arm, in pain Time Seen by Provider: 08/24/22 14:51 Source: patient Mode of arrival: ambulatory History of Present Illness: 72-year-old female presents emergency room complaining of initially a bruise in the medial portion of the antecubital fossa. Shortly after she got her she began complaining of chest pain. Patient seen multiple times for chest pain very vague in her description of which she just refers to the lower sternal area no radiation. Nothing makes it better or worse. She acknowledged she has been here multiple times with it after she got back to the room she states that she gets some shortness of breath with it as well. Patient to stress test year and half ago that was completely normal as well as an echo that was unremarkable in the past. MD complaint: chest pain Onset (ago): minute(s) Timing of current episode: episodic Prior episodes: Yes Onset: during rest Pain location: substernal Pain radiation: none Severity: mild Quality: aching and heaviness Relieving factors: nothing Exacerbating factors: nothing Associated symptoms: Deny abdominal pain, diaphoresis, dyspnea, fever(s), nausea, palpitations, sense of impending doom, syncope or vomiting Treatment prior to arrival: none Review of Systems Const: Denies: fever(s), chills, fatigue, malaise or diaphoresis ENMT: Denies: throat pain, ear or mastoid pain, nasal discharge or nasal congestion Card: Denies: palpitations or syncope Resp: Denies: dyspnea GI: Denies: abdominal pain, nausea or vomiting : Denies: flank pain, difficulty voiding, dysuria, urinary frequency or urinary urgency Skin/Breast: Denies: rash or pruritus PFSH ED PFSH: Medical History Abdominal aortic aneurysm (AAA) 3.0 cm to 5.0 cm in diameter in female Abnormal EKG 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 by CTA Jan 2018 Arnold-Chiari malformation, type I Atrophy of left kidney Coronary artery disease Esophageal thickening incidental finding on CT 03/2021 High risk medication use Hyperlipidemia Hypertension, essential Mesenteric artery stenosis Obstructive sleep apnea Peripheral vascular disease multiple vessels Polypharmacy Primary osteoarthritis of knees, bilateral Seropositive rheumatoid arthritis of multiple joints Thyroid nodule incidental indeterminant finding on CT 03/2021 Uncontrolled hypertension UTI (urinary tract infection) Surgical History H/O hysterectomy with oophorectomy History of appendectomy History of total right knee replacement (TKR) S/P carpal tunnel release right, Dr. Hazel, 2013 S/P cataract extraction and insertion of intraocular lens bilateral S/P cervical spinal fusion ACDFF Dr. Dawn 12/07/2015 S/P right coronary artery (RCA) stent placement (~05/2019) Family History Mother CAD (coronary artery disease) Father No problems noted. Other Cancer Rheumatoid arthritis Denies family history of Chronic kidney disease (CKD) Systemic lupus erythematosus (SLE) in adult Lung disease Hypertension Social History Smoking and tobacco status: former smoker Alcohol intake: never Marital status: Current occupational status: retired History of recent travel: No (12/10/19) Physical Exam Const: GENERAL APPEARANCE: cooperative and comfortable ORIENTATION/CONSCIOUSNESS: Yes awake, Yes oriented to person, Yes oriented to place and Yes oriented to time HENMT: COMMON NORMALS: normocephalic, atraumatic and hearing grossly normal bilaterally HEAD & SCALP: normocephalic and atraumatic Resp: COMMON NORMALS: normal respiratory effort, No retractions, No use of accessory muscles and clear to auscultation bilaterally AUSCULTATION: clear to auscultation bilaterally Cardio: COMMON NORMALS: regular rate, regular rhythm and No murmurs present (Cardio) RATE: regular rate RHYTHM: regular rhythm GI: COMMON NORMALS: Soft to palpation and No hepatosplenomegaly present AUSCULTATION: Yes normoactive bowel sounds PALPATION: Yes Soft to palpation, No Tenderness to palpation present (GI), No Guarding due to palpation present (GI) and Yes No hepatosplenomegaly present Extremity: COMMON NORMALS: normal to inspection, capillary refill normal, no clubbing, cyanosis or edema, no calf tenderness and no pedal edema Neuro: SENSORIUM/ORIENTATION: Yes oriented to person, Yes oriented to place and Yes oriented to time Skin: COMMON NORMALS: no rashes or lesions noted GENERAL SKIN EXAM: no rashes or lesions noted Course Vital Signs: Vital signs: Vital Signs Temperature 99.2 F 08/24/22 14:37 Pulse Rate 73 08/24/22 14:37 Respiratory Rate 18 08/24/22 14:37 Blood Pressure 201/108 08/24/22 14:37 Pulse Oximetry 99 08/24/22 14:37 Oxygen Delivery Me thod 08/24/22 14:37 MDM - Chest Pain Medical Decision Making Shortly after arrival and evaluation patient decided to leave was unable to dissuade her from leaving. Cardiac work-up has been ordered including serial enzymes patient elected to leave AMA Medical Records I reviewed the patient's medical records. Lab Data I reviewed the patient's lab results. Discharge Plan Discharge Patient Disposition: Left Against Medical Advice Clinical Impression: Atypical chest pain Condition: Stable Prescriptions: No Action nitroglycerin [Nitrostat] 0.4 mg tablet, sublingual 0.4 mg SUBLINGUAL Q5M PRN (Reason: Chest Pain) Qty: 25 1RF Rx Instructions: do not exceed 3 doses per episode atorvastatin 40 mg tablet 40 mg PO QPM Qty: 30 0RF lisinopril 20 mg Tablet 40 mg PO DAILY Qty: 60 0RF amlodipine 10 mg Tablet 10 mg PO DAILY Qty: 30 0RF Referrals: Silvia Peng MD [Primary Care Provider] - Activity Restrictions/Additional Instructions: You may return at any time if your symptoms change or you wish to complete the evaluation. Coding Level of Care Code ED Coffee Shop Attendant for Chg Fwd Exam Detailed
== END 2022-08-24 15:40 | disposition left against medical advice (07) ==
PROVIDERS: Emergency Provider Family Medicine; PCP Family Medicine
DX: R07.89 Other chest pain (principal); I25.10 Atherosclerotic heart disease of native coronary artery without angina pectoris; I10 Essential (primary) hypertension; E78.5 Hyperlipidemia, unspecified; Z87.891 Personal history of nicotine dependence; Z53.29 Procedure and treatment not carried out because of patient's decision for other reasons
CPT/HCPCS: 93005; 99283

== ENCOUNTER 2022-09-04 14:18 | Emergency (ER) | payer MEDICARE, OTHER, SELFPAY ==
[2022-09-04 14:24] VITALS: BP 230/99; PULSE 77; RESP 20; TEMP 36.9; O2SAT 98
--- NOTE | 2022-09-04 14:32 | XRR_ITS ---
PROCEDURE INFORMATION: Exam: XR Right Hip Exam date and time: 09/04/2022 2:38 PM Age: 72 years old Clinical indication: Pain and injury or trauma; Fall; Blunt trauma (contusions or hematomas); Hip pain; Right hip; Injury date: 09/03/22; Prior surgery; Surgery type: Back; Additional info: Right hip pain after fall TECHNIQUE: Imaging protocol: Radiologic exam of the Right hip. Views: 1 view hip with pelvis when performed. COMPARISON: CT abdomen pelvis w con* [id number] 08/22/2022 8:03 PM FINDINGS: Bones/joints: Probable mild osteopenia. No acute fracture dislocation or obvious suspicious bony lesions. Posterior surgical fusion fusion hardware at L3-L4 with with intervertebral disc spacer. Soft tissues: Unremarkable. Vasculature: Diffuse aortoiliac calcifications with probable abdominal aortic aneurysm as noted on most recent CT exam. Please refer to most recent CT exam report. Well maintained hip joint spaces on this nonweightbearing exam. Other findings: Three views submitted. XR/XR hip RT 2-3V wo/w pel* [id number] IMPRESSION: 1. No acute osseous findings. 2. Incidental aortic findings. See discussion above. Correlation with abdominopelvic CT may be obtained if clinically indicated.
--- NOTE | 2022-09-04 15:04 | XRR_ITS ---
PROCEDURE INFORMATION: Exam: XR Lumbosacral Spine Exam date and time: 09/04/2022 3:13 PM Age: 72 years old Clinical indication: Pain and injury or trauma; Fall; Blunt trauma (contusions or hematomas); Low back pain; Injury date: 09/03/22; Prior surgery; Additional info: Fall with low back pain TECHNIQUE: Imaging protocol: Radiologic exam of the lumbosacral spine. Views: 2 or 3 views. COMPARISON: CR XR hip RT 2-3V wo/w pel* [id number] 09/04/2022 2:38 PM FINDINGS: Bones/joints: Evidence of posterior surgical fusion at L3-L4 and intervertebral disc spacer in good and stable alignment. No acute fracture or subluxation. Facet arthropathy from L4 through S1. Osteopenia. Soft tissues: Unremarkable. Vasculature: Diffuse aortoiliac calcifications with fusiform abdominal aortic aneurysm measuring about 5.1 cm AP on the lateral view versus 4.3 cm on the sagittal reformatted CT images dated 08/22/2022. The interval increase may be related to technical factor/magnification however reassessment by CT may be obtained if clinically indicated. Other findings: Three views submitted. XR/XR lumbar spine 2-3V* [id number] IMPRESSION: 1. No acute spine findings. 2. AAA is noted. Please see discussion above.
--- NOTE | 2022-09-04 15:06 | ED_ITS ---
HPI - Fall General: Chief Complaint: Fall Stated Complaint: Fall, Hip Pain Time Seen by Provider: 09/04/22 14:31 History of Present Illness: Patient is a 72-year-old female comes to the ED after a fall. Patient lost her balance yesterday and fell landing on right hip and lower back. She was able to get up on her own after fall. Denies any loss of consciousness or any head trauma. Her main complaint is lower back pain and right hip pain. Pain worsens when she ambulates. She rates her pain currently a 5 out of 10. Most of her pain is in her right hip and she reports having more of a chronic lower back pain that is unchanged over the past year. Associated symptoms-after fall: Denies abdominal pain, chest pain, headache(s), hematuria or neck pain Review of Systems Const: Denies: fever(s), chills or fatigue Eyes: Denies: change in vision or eye discomfort ENMT: Denies: throat pain, odynophagia, nasal discharge or nasal congestion Card: Denies: chest pain, palpitations, edema, swelling of feet/ankles, dyspnea on exertion or orthopnea Resp: Denies: dyspnea, productive cough or non-productive cough GI: Denies: abdominal pain, nausea, vomiting, diarrhea, constipation or hematochezia : Denies: flank pain, dysuria or hematuria Musc: Reports: back pain (low back pain) and extremity pain (right hip); Denies: neck pain or extremity swelling Skin/Breast: Denies: rash or new lesions Neuro: Denies: headache(s), numbness in extremities or weakness in extremities PFS ED PFSH: Medical History Abdominal aortic aneurysm (AAA) 3.0 cm to 5.0 cm in diameter in female Abnormal EKG 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 by CTA Jan 2018 Arnold-Chiari malformation, type I Atrophy of left kidney Coronary artery disease Esophageal thickening incidental finding on CT 03/2021 High risk medication use Hyperlipidemia Hypertension, essential Mesenteric artery stenosis Obstructive sleep apnea Peripheral vascular disease multiple vessels Polypharmacy Primary osteoarthritis of knees, bilateral Seropositive rheumatoid arthritis of multiple joints Thyroid nodule incidental indeterminant finding on CT 03/2021 Uncontrolled hypertension UTI (urinary tract infection) Surgical History H/O hysterectomy with oophorectomy History of appendectomy History of total right knee replacement (TKR) S/P carpal tunnel release right, Dr. Hazel, 2014 S/P cataract extraction and insertion of intraocular lens bilateral S/P cervical spinal fusion ACDFF Dr. Dawn 12/07/2015 S/P right coronary artery (RCA) stent placement (~05/2019) Family History Mother CAD (coronary artery disease) Father No problems noted. Other Cancer Rheumatoid arthritis Denies family history of Chronic kidney disease (CKD) Systemic lupus erythematosus (SLE) in adult Lung disease Hypertension Social History Smoking and tobacco status: former smoker Alcohol intake: never Marital status: Current occupational status: retired History of recent travel: No (12/10/19) Physical Exam Const: COMMON NORMALS: no acute distress, patient oriented x3 and alert GENERAL APPEARANCE: cooperative and comfortable HENMT: COMMON NORMALS: normocephalic HEAD & SCALP: normocephalic MOUTH: Normal oral and palatal mucosa present THROAT: posterior oropharynx normal and uvula midline Neck/C-Spine: COMMON NORMALS: supple GENERAL: Yes normal visual inspection Resp: COMMON NORMALS: normal respiratory effort, No retractions, No use of accessory muscles and clear to auscultation bilaterally AUSCULTATION: clear to auscultation bilaterally Cardio: COMMON NORMALS: regular rate, regular rhythm, S1 normal heart sound present, S2 normal heart sound present, No gallops present (Cardio), No clicks present (Cardio), No murmurs present (Cardio) and Peripheral pulses 2+ throughout RATE: regular rate RHYTHM: regular rhythm HEART SOUNDS: S1 normal heart sound present and S2 normal heart sound present PERIPHERAL PULSES: Peripheral pulses 2+ throughout GI: COMMON NORMALS: Normal to inspection, nondistended, normoactive bowel sounds present, Soft to palpation, non-tender and no masses PALPATION: Yes Soft to palpation : COMMON NORMALS: Yes no CVA tenderness BLADDER/KIDNEY EXAM: Yes no CVA tenderness Back/Pelvis: COMMON NORMALS: no CVA tenderness Extremity: COMMON NORMALS: normal to inspection Neuro: COMMON NORMALS: patient oriented x3 SENSORIUM/ORIENTATION: Yes alert GAIT: Yes Normal gait present Skin: GENERAL SKIN EXAM: dry skin Course Vital Signs: Vital signs: Vital Signs Temperature 98.4 F 09/04/22 14:24 Pulse Rate 77 09/04/22 14:24 Respiratory Rate 20 H 09/04/22 14:24 Blood Pressure 230/99 09/04/22 14:24 Pulse Oximetry 98 09/04/22 14:24 MDM - Fall Medical Decision Making Patient is a 72-year-old female comes to the ED after a fall. Patient lost her balance yesterday and fell landing on right hip and lower back. She was able to get up on her own after fall. Denies any loss of consciousness or any head trauma. Her main complaint is lower back pain and right hip pain. Pain worsens when she ambulates. She rates her pain currently a 5 out of 10. Most of her pain is in her right hip and she reports having more of a chronic lower back pain that is unchanged over the past year. Vitals are stable and patient appears nontoxic in no acute distress or pain. Rest of exam is benign. X-ray of right hip showed no acute findings. Lumbar spine x-ray showed no acute findings. Imaging did note the AAA, but patient has no clinical findings (low back pain is chronic and no acute acute/worsening pain since last CT abd) suggestive for any further imaging such as CT of the abdomen to evaluate AAA. Talked with patient about the AAA, which they were aware of and she and had minimal concerns for any worsening symptoms and did not want any further im aging. Patient was stable for discharge home diagnosed with fall with no significant injury. Told to follow-up with PCP within the next week for reevaluation. Return to ED precautions given. Patient understood and agreed with plan. Lab Data Radiology Impressions Hip/Pelvis X-Ray 09/04/22 14:32 IMPRESSION: 1. No acute osseous findings. 2. Incidental aortic findings. See discussion above. Correlation with abdominopelvic CT may be obtained if clinically indicated. Lumbar Spine X-Ray 09/04/22 15:04 IMPRESSION: 1. No acute spine findings. 2. AAA is noted. Please see discussion above. Discharge Plan Discharge Patient Disposition: Home Clinical Impression: Fall with no significant injury Qualifiers: Encounter type: initial encounter Qualified Code(s): W19.XXXA - Unspecified fall, initial encounter Condition: Stable Prescriptions: No Action nitroglycerin [Nitrostat] 0.4 mg tablet, sublingual 0.4 mg SUBLINGUAL Q5M PRN (Reason: Chest Pain) Qty: 25 1RF Rx Instructions: do not exceed 3 doses per episode atorvastatin 40 mg tablet 40 mg PO QPM Qty: 30 0RF lisinopril 20 mg Tablet 40 mg PO DAILY Qty: 60 0RF amlodipine 10 mg Tablet 10 mg PO DAILY Qty: 30 0RF Discharge Orders: Discharge ED (Routine); Ordered 09/04/22 Ordered By: Grupo Alatorre Referrals: Silvia Peng MD [Primary Care Provider] - Discharge Diet: Regular Discharge Activity: Increase activity as tolerated Activity Restrictions/Additional Instructions: Follow-up with medical provider as directed in the next 5 to 7 days reevaluation. Continue taking all home medications as previously prescribed. Return to the ER or your medical provider if condition worsens. Please read and understand discharge instructions. Thank you for choosing [facility] for your healthcare needs today. Please realize this is an emergency room and that we are providing you with a medical screening exam and this may not be complete and all inclusive of all the testing and or work up that you may need to determine your ailment or severity of your illness. It is very important that you follow up as instructed or that you return to the Emergency Department should you have concerns or if your condition changes or worsens in any way. Coding Level of Care Code ED Wireless Internet Installer for Loulou Borrero Exam Comprehensive
== END 2022-09-04 16:04 | disposition home or self-care (01) ==
PROVIDERS: Emergency Provider Physician Assistant; PCP Family Medicine
DX: M25.551 Pain in right hip (principal); M54.50 Low back pain, unspecified; I25.10 Atherosclerotic heart disease of native coronary artery without angina pectoris; E78.5 Hyperlipidemia, unspecified; I10 Essential (primary) hypertension; Z87.891 Personal history of nicotine dependence; W18.30XA Fall on same level, unspecified, initial encounter
CPT/HCPCS: 72100; 73502; 99283

== ENCOUNTER 2022-11-20 13:38 | Observation (INO) | payer MEDICARE, OTHER, SELFPAY ==
[2022-11-20] VITALS (24 sets, daily range): BP systolic 113–217; BP diastolic 68–120; PULSE 39–94; RESP 3–32; TEMP 36.1–36.8; O2SAT 88–100; BMI 26.2; BMI 24.0
--- NOTE | 2022-11-20 13:42 | ED_ITS ---
HPI - Altered Mental Status General: Chief Complaint: Neuro Symptoms/Deficit Stated Complaint: AMS/ PINPOINT PUPILS Time Seen by Provider: 11/20/22 13:41 Limitations: altered mental status History of Present Illness: Ms. Martinez is a 72-year-old lady presented to the emergency department for altered mental status. Only provides very limited history. Last known normal was unclear. Supplemental history provided by lead pharmacy technician is that patient may have taken an overdose of her husbands clonidine, unknown number of tablets. Review of Systems General: Reports: ROS unobtainable due to mental status PFSH ED PFSH: Medical History Abdominal aortic aneurysm (AAA) 3.0 cm to 5.0 cm in diameter in female Abnormal EKG Acute alteration in mental status Alzheimer's dementia 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 by CTA Jan 2018 Arnold-Chiari malformation, type I Atrophy of left kidney Clonidine overdose Coronary artery disease Esophageal thickening incidental finding on CT 03/2021 Falls frequently High risk medication use Hyperlipidemia Hypertension, essential Mesenteric artery stenosis Obstructive sleep apnea Peripheral vascular disease multiple vessels Polypharmacy Primary osteoarthritis of knees, bilateral Renal artery stenosis Seropositive rheumatoid arthritis of multiple joints Thyroid nodule incidental indeterminant finding on CT 03/2021 Uncontrolled hypertension UTI (urinary tract infection) Surgical History H/O hysterectomy with oophorectomy History of appendectomy History of total right knee replacement (TKR) S/P carpal tunnel release right, Dr. Hazel, 2014 S/P cataract extraction and insertion of intraocular lens bilateral S/P cervical spinal fusion ACDFF Dr. Dawn 12/07/2015 S/P right coronary artery (RCA) stent placement (~05/2019) Family History Mother CAD (coronary artery disease) Father No problems noted. Other Cancer Rheumatoid arthritis Denies family history of Chronic kidney disease (CKD) Systemic lupus erythematosus (SLE) in adult Lung disease Hypertension Social History Smoking and tobacco status: former smoker Alcohol intake: never Marital status: Current occupational status: retired History of recent travel: No (12/10/19) Physical Exam Const: GENERAL APPEARANCE: well developed and disheveled HENMT: COMMON NORMALS: normocephalic and atraumatic HEAD & SCALP: normocephalic and atraumatic THROAT: posterior oropharynx normal OTHER: No castillo signs or raccoon eyes. No hemotympanum. No otorrhea or rhinorrhea. Jaw alignment normal. Dentition baseline. No obvious bony step-offs. No septal hematoma. No evidence of ocular entrapment. Eye: COMMON NORMALS: conjunctivae normal CONJUNCTIVA: Yes conjunctivae normal SCLERA: sclerae normal Neck/C-Spine: COMMON NORMALS: supple GENERAL: Yes trachea midline Resp: COMMON NORMALS: clear to auscultation bilaterally AUSCULTATION: clear to auscultation bilaterally Cardio: COMMON NORMALS: regular rhythm RATE: bradycardic RHYTHM: regular rhythm GI: COMMON NORMALS: Soft to palpation PALPATION: Yes Soft to palpation and No Tenderness to palpation present (GI) Extremity: GENERAL: Yes normal exam except as noted and No edema Neuro: COMMON NORMALS: moves all extremities SENSORIUM/ORIENTATION: Yes Orientation impaired and Yes stuporous Psych: MEMORY/COGNITION: Yes memory grossly impaired and Yes cognition grossly impaired Course Vital Signs: Vital signs: Vital Signs Temperature 97.8 F 11/28/22 11:34 Pulse Rate 95 11/28/22 11:34 Respiratory Rate 15 11/28/22 11:34 Blood Pressure 134/76 11/28/22 11:34 Pulse Oximetry 100 11/28/22 11:34 Oxygen Delivery Me thod 11/28/22 11:34 Fraction of Inspir ed Oxygen 97 11/23/22 10:21 MDM - Altered Mental Status Medical Decision Making 72-year-old lady presenting with altered mental status of unclear etiology with possible overdose. Patient is responsive to painful stimuli and does move all extremities however is otherwise not participatory in exam. I do believe that she is adequately controlling her airway. EKG notable for sinus bradycardia Labs notable for no leukocytosis, mild normocytic anemia. ABG is compensated. No significant electrolyte arrangement. 2-hour delta troponin is negative. Toxic ingestions and drug screen as tested are negative. Chest x-ray with no lobar consolidation or pneumothorax. No LVO evidence of acute stroke on CT head imaging. Initially reported as source was unclear. It was only upon contacting the patient's that positive clonidine as a source was identified. Patient treated with atropine which did improve heart rate, multiple doses of naloxone did not significantly improve mental status. Patient did slowly have improvement in responsiveness however continued to have significant altered mental status. Most likely etiology of patient symptoms is unclear. Possibly related to clonidine overdose or other toxidrome. The results of ED evaluation were discussed with the patient including plan for admission due to requirement for level of care not available if discharged to prevent significant worsening/deterioration. Patient agreeable with plan. Discussed with hospitalist service who was agreeable to admit patient. Medical Records I reviewed the patient's medical records. Lab Data I reviewed the patient's lab results. 11/20/22 13:51 11/20/22 13:51 Radiology Impressions Chest X-Ray 11/20/22 14:03 IMPRESSION: 1. No acute cardiopulmonary finding. No change. Head CT 11/20/22 14:03 IMPRESSION: 1. No acute intracranial abnormality. 2. Moderate diffuse cerebral atrophy and sequela of chronic small vessel ischemic disease. Head/Neck CTA 11/20/22 15:06 IMPRESSION: No large vessel stenosis or occlusion. IMPRESSION: Mild stenosis at the left common carotid bulb and origin of the left internal carotid artery. No severe stenosis or occlusion. COMMENTS: Consistent with the [employer] [employer]'s Incidental Findings Committee white paper (J Am Missy Radiol 2015): In patients aged 35 years and older with an incidental thyroid nodule equal to or greater than 1.[address], MRI or extrathyroidal US, further evaluation with dedicated thyroid US is recommended for patients with normal life expectancy and without comorbidities. For smaller nodules without suspicious features, no further evaluation or follow up is recommended. REFERENCES: NASCET CRITERIA. The degree of stenosis in the cervical segment of the internal carotid artery is based on NASCET criteria. Normal is no stenosis. Mild is less than 50% stenosis. Moderate is 50-69% stenosis. Severe is 70% to 99% stenosis. Total occlusion is no detectable patent lumen. Laboratory Results WBC 4.2 10^3/uL (4.0-10.0) 11/20/22 13:51 RBC 4.08 10^6/uL (4.1-5.3) L 11/20/22 13:51 Hgb 11.1 g/dL (11.5-15.3) L 11/20/22 13:51 Hct 34.8 % (37.0-47.0) L 11/20/22 13:51 MCV 85.3 fl (81-99) 11/20/22 13:51 MCH 27.2 pg (28.0-34.0) L 11/20/22 13:51 MCHC 31.9 g/dL (30.0-36.0) 11/20/22 13:51 RDW 14.8 % (12.1-15.1) 11/20/22 13:51 Plt Count 183 10^3/cmm (130-400) 11/20/22 13:51 MPV 11.6 fL (7.4-10.4) H 11/20/22 13:51 Neut % (Auto) 70.1 % 11/20/22 13:51 Lymph % (Auto) 19.3 % 11/20/22 13:51 [place] % (Auto) 9.5 % 11/20/22 13:51 Eos % (Auto) 0.2 % 11/20/22 13:51 Baso % (Auto) 0.7 % 11/20/22 13:51 Neut # (Auto) 2.93 10^3/uL (1.8-7.7) 11/20/22 13:51 Lymph # (Auto) 0.8 10^3/uL (0.8-4.8) 11/20/22 13:51 [place] # (Auto) 0.4 10^3/uL (0.2-0.9) 11/20/22 13:51 Eos # (Auto) 0.0 10^3/uL (0.0-0.8) 11/20/22 13:51 Baso # (Auto) 0.0 10^3/uL (0.0-0.1) 11/20/22 13:51 Nucleated RBC % (auto) 0 % 11/20/22 13:51 Nucleated RBCs # 0.0 /100WBC 11/20/22 13:51 Specimen Type Art 11/20/22 14:03 Sample Site Lr 11/20/22 14:03 ABG pH 7.42 (7.35-7.45) 11/20/22 14:03 ABG pCO2 42.7 mmHg (35-45) 11/20/22 14:03 ABG pO2 79.1 mmHg (80.0-100.0) L 11/20/22 14:03 ABG HCO3 27.9 mmol/L (22-26) H 11/20/22 14:03 ABG Base Excess 3.1 mmol/L (-2.0-2.0) H 11/20/22 14:03 Александр Test Pos 11/20/22 14:03 Hematocrit 35.8 % (37-47) L 11/20/22 14:03 O2 Delivery Device Ra 11/20/22 14:03 FiO2 21.0 % 11/20/22 14:03 Specimen Drawn By Melisa 11/20/22 14:03 Bale Tie Machine Operator ID [email or web address] 11/20/22 14:03 Blood Gas Notified Time Na 11/20/22 14:03 Sodium 136 mmol/L (136-145) 11/20/22 13:51 Potassium 3.9 mmol/L (3.5-5.1) 11/20/22 13:51 Chloride 104 mmol/L (98-107) 11/20/22 13:51 Carbon Dioxide 23 mmol/L (22-29) 11/20/22 13:51 Anion Gap 12.9 (5-19) 11/20/22 13:51 BUN 13 mg/dL (8-23) 11/20/22 13:51 Creatinine 1.0 mg/dL (0.5-0.9) H 11/20/22 13:51 GFR Calculation Not Reportable 11/20/22 13:51 Glucose 104 mg/dL (65-115) 11/20/22 13:51 Calculated Osmolality 282 mOsm/kg (285-295) L 11/20/22 13:51 Lactate 0.8 mmol/L (0.5-2.2) 11/20/22 15:03 Calcium 9.3 mg/dL (8.5-10.5) 11/20/22 13:51 Total Bilirubin 0.7 mg/dL (0.15-1.2) 11/20/22 13:51 AST 20 U/L (0-32) 11/20/22 13:51 ALT 16 U/L (0-33) 11/20/22 13:51 Alkaline Phosphatase 140 U/L (35-105) H 11/20/22 13:51 Creatine Kinase 49 U/L (26-192) 11/20/22 13:51 Troponin T Baseline 17 ng/L (0-10) H 11/20/22 13:51 Troponin T 120 Minute 16.07 ng/L (0-10) H 11/20/22 15:54 Delta Troponin T -0.93 ABS# (0-10) L 11/20/22 15:54 Total Protein 5.3 g/dL (6.6-8.7) L 11/20/22 13:51 Albumin 3.2 g/dL (3.5-5.2) L 11/20/22 13:51 Globulin 2.1 g/dL (1.3-4.6) 11/20/22 13:51 Procalcitonin 0.05 ng/mL (0-0.5) 11/20/22 13:51 TSH 0.69 uIU/mL (0.27-4.20) 11/20/22 13:51 Urine Color Yellow (Yellow) 11/20/22 14:18 Urine Appearance Clear (CLEAR) 11/20/22 14:18 Urine pH 7 (5-7) 11/20/22 14:18 Ur Specific [place] 1.010 (1.005-1.030) 11/20/22 14:18 Urine Protein 1+ (Negative) H 11/20/22 14:18 Urine Glucose (UA) Norm (Normal) 11/20/22 14:18 Urine Ketones Negative (Negative) 11/20/22 14:18 Urine Blood Neg (Negative) 11/20/22 14:18 Urine Nitrate Negative (Negative) 11/20/22 14:18 Urine Bilirubin Neg (Negative) 11/20/22 14:18 Urine Urobilinogen 1 mg/dL (Negative) H 11/20/22 14:18 Ur Leukocyte Esterase Negative (Negative) 11/20/22 14:18 Urine RBC None /hpf (0-2) 11/20/22 14:18 Urine WBC None /hpf (0-5) 11/20/22 14:18 Ur Squamous Epith Cells 0-4 /hpf (0-5) H 11/20/22 14:18 Ur Renal Epithelial Cell 0-4 /hpf 11/20/22 14:18 Amorphous Sediment Not Reportable 11/20/22 14:18 Urine Bacteria Trace /hpf (NONE) 11/20/22 14:18 Salicylates < 0.3 mg/dL (3-10) L 11/20/22 13:51 Urine Opiates Screen Negative ng/mL (Negative) 11/20/22 14:18 Acetaminophen < 5.0 ug/mL (10-30) L 11/20/22 13:51 Ur Barbiturates Screen Negative ng/mL (Negative) 11/20/22 14:18 Ur Phencyclidine Scrn Negative ng/mL (Negative) 11/20/22 14:18 Ur Amphetamines Screen Negative ng/mL (Negative) 11/20/22 14:18 U Benzodiazepines Scrn Negative ng/mL (Negative) 11/20/22 14:18 Urine Cocaine Screen Negative ng/mL (Negative) 11/20/22 14:18 U Marijuana (THC) Screen Negative ng/mL (Negative) 11/20/22 14:18 Ethyl Alcohol < 10 mg/dL (0-10) 11/20/22 13:51 Critical Care Time Critical Care Time: Critical Care Time: Yes Total Critical Care Time: 50 Attestation: Due to a high probability of clinically significant, possibly life threatening deterioration, the patient required my highest level of attention and preparedness to intervene emergently and I personally spent this critical care time directly and personally managing the patient. This critical care time included obtaining a history; examining the patient; pulse oximetry; ordering and review of laboratory and imaging studies; arranging urgent treatment with development of a management plan; evaluation of patient's response to treatment; frequent reassessment; and, discussions with other providers as applicable. It was exclusive of separately billable procedures. Primary system involved a suspected toxidrome Discharge Plan Discharge Patient Disposition: Placed in Observation Admit Provider: Aminata Johns Clinical Impression: Acute alteration in mental status, Clonidine overdose Coding Level of Care Code ED Email Campaign Specialist for Loulou Borrero
--- NOTE | 2022-11-20 14:03 | CTR_ITS ---
PROCEDURE INFORMATION: Exam: CT Head Without Contrast Exam date and time: 11/20/2022 3:18 PM Age: 72 years old Clinical indication: Altered mental status/memory loss; Age related cognitive decline; Additional info: AMS TECHNIQUE: Imaging protocol: Computed tomography of the head without contrast. Radiation optimization: All CT scans at this facility use at least one of these dose optimization techniques: automated exposure control; mA and/or kV adjustment per patient size (includes targeted exams where dose is matched to clinical indication); or iterative reconstruction. COMPARISON: CT head wo con* [id number] 07/30/2022 5:29 AM RADIATION DOSE METRICS: Total DLP (mGy-cm): 1106.41 FINDINGS: Brain: No hemorrhage. No edema. Moderate diffuse cerebral atrophy and sequela of chronic small vessel ischemic disease. No mass effect. Cerebral ventricles: No ventriculomegaly. Paranasal sinuses: Visualized sinuses are unremarkable. No fluid levels. Mastoid air cells: Visualized mastoid air cells are well aerated. Bones/joints: Unremarkable. No acute fracture. Soft tissues: Unremarkable. CT/CT head wo con* [id number] IMPRESSION: 1. No acute intracranial abnormality. 2. Moderate diffuse cerebral atrophy and sequela of chronic small vessel ischemic disease.
--- NOTE | 2022-11-20 14:03 | XR_ITS ---
WS: [id number] Exam: XR chest 1V portable [id number] Date/Time of Exam: 11/20/2022 2:27 PM Reason For Exam: ams Comparison 08/22/2022. The lungs are fully expanded and clear. Normal cardiomediastinal silhouette. No pleural effusions. Re gional bony elements are intact. Fusion hardware in the lower C-spine. XR/XR chest 1V portable [id number] IMPRESSION: 1. No acute cardiopulmonary finding. No change.
--- NOTE | 2022-11-20 14:12 | ECG_ITS ---
[facility] Test Date: 2022-11-20 Pat Name: Rosie Martinez Department: Room: Gender: Female Merchandiser: : 1950 Requested By: Hank Garcia Order Number: [id number] Gonzalez MD: Nikki Doe M.D. Measurements Intervals [place] Rate: 44 P: 70 GA: 157 QRS: 58 QRSD: 74 T: 7 QT: 516 QTc: 444 Interpretive Statements SINUS BRADYCARDIA MODERATE T-WAVE ABNORMALITY, CONSIDER ANTEROLATERAL ISCHEMIA [-0.1+ mV T-WAVE IN V3-V6] Compared to ECG 08/24/2022 14:49:09 Possible ischemia now present Sinus rhythm no longer present T-wave abnormality still present Electronically Signed On 11-21-2022 9:11:08 PRINCIPAL AUTOMATION ENGINEER by Nikki Doe M.D. [id number]
[2022-11-20 14:21] LABS: Basophils % 0.7 %; Eosinophils % 0.2 %; Hematocrit 34.8 % (37.0-47.0); Hemoglobin 11.1 g/dL (11.5-15.3); Lymphocytes # 0.8 10^3/uL (0.8-4.8); Lymphocytes % 19.3 %; Mean Corpuscular HGB Conc 31.9 g/dL (30.0-36.0); Mean Corpuscular Hemoglobin 27.2 pg (28.0-34.0); Mean Corpuscular Volume 85.3 fl (81-99); Mean Platelet Volume 11.6 fL (7.4-10.4); Monocytes # 0.4 10^3/uL (0.2-0.9); Monocytes % 9.5 %; Neutrophils # 2.93 10^3/uL (1.8-7.7); Neutrophils % 70.1 %; Nucleated Red Blood Cells % 0 %; Platelet Count 183 10^3/cmm (130-400); Red Blood Count 4.08 10^6/uL (4.1-5.3); Red Cell Distribution Width 14.8 % (12.1-15.1); White Blood Count 4.2 10^3/uL (4.0-10.0)
[2022-11-20] MEDS: naloxone 0.4 mg/ml SDV 0.1 MG IVP ×3 (14:23→14:35)
[2022-11-20 14:37] LABS: ABG PCO2 42.7 mmHg (35-45); ABG PH Result 7.42 (7.35-7.45); Base Excess ABG 3.1 mmol/L (-2.0-2.0); Blood Gas Allen Test POS; Blood Gas Operator Identificat WALCI; HCO3 ABG 27.9 mmol/L (22-26); Oxygen Device RA; PO2 ABG 79.1 mmHg (80.0-100.0)
[2022-11-20 14:38] LABS: Arterial Blood Gas Hematocrit 35.8 % (37-47); Blood Gas Drawn By WALCI; Blood Gas Sample Site LR; Blood Gas Sample Type ART
--- NOTE | 2022-11-20 14:42 | PC.PHAR ---
PT FROM HOME AMS BY EMS- PT UNABLE TO VERIFY MEDS - CALLED PTS PHARMACY TO GET LAST FILLED AND DAYS SUPPLY- PT HUSBANDS STS PT HAS POOR HISTORY OF TAKING MEDICATIONS PRESCRIBED.
[2022-11-20 14:44] LABS: Troponin(5th) Baseline 17 ng/L (0-10)
[2022-11-20] MEDS: atropine 0.1 mg/mL Syr 10 mL 1 MG IVP (14:53)
[2022-11-20 14:54] LABS: Add Urine Microscopic? YES; Bilirubin Urine Neg (Negative); Blood Urine Neg (Negative); Glucose Urine UA Norm (Normal); Ketones Urine Negative (Negative); Leukocyte Esterase Urine Negative (Negative); Nitrate Urine Negative (Negative); Protein Urine 1+ (Negative); Urine Appearance Clear (CLEAR); Urine Color Yellow (Yellow); Urobilinogen Urine 1 mg/dL (Negative); pH Urine 7 (5-7)
[2022-11-20 14:56] LABS: Add Urine Culture? No; Bacteria Urine TRACE /hpf; Renal Epithelial Cells Urine 0-4 /hpf; Squamous Epithelial Cell Urine 0-4 /hpf (0-5)
[2022-11-20 15:05] LABS: Alanine Aminotransferase 16 U/L (0-33); Albumin Level 3.2 g/dL (3.5-5.2); Alkaline Phosphatase 140 U/L (35-105); Anion Gap 12.9 (5-19); Aspartate Amino Transferase 20 U/L (0-32); Blood Urea Nitrogen 13 mg/dL (8-23); Calcium 9.3 mg/dL (8.5-10.5); Carbon Dioxide 23 mmol/L (22-29); Chloride 104 mmol/L (98-107); Creatine Phosphokinase 49 U/L (26-192); Globulin 2.1 g/dL (1.3-4.6); Glucose 104 mg/dL (65-115); Osmolality Calculated 282 mOsm/kg (285-295); Potassium 3.9 mmol/L (3.5-5.1); Procalcitonin 0.05 ng/mL (0-0.5); Sodium 136 mmol/L (136-145); Thyroid Stimulating Hormone 0.69 uIU/mL (0.27-4.20); Total Bilirubin 0.7 mg/dL (0.15-1.2); Total Protein 5.3 g/dL (6.6-8.7)
--- NOTE | 2022-11-20 15:06 | CTR_ITS ---
PROCEDURE INFORMATION: Exam: CTA Head With Contrast, Arteriography Exam date and time: 11/20/2022 3:28 PM Age: 72 years old Clinical indication: Cognitive deficit; Altered mental status; Additional info: AMS TECHNIQUE: Imaging protocol: Computed tomographic angiography of the head with contrast. Exam focused on the arteries. 3D rendering (Not supervised by radiologist): MIP and/or 3D reconstructed images were created by the technologist. Radiation optimization: All CT scans at this facility use at least one of these dose optimization techniques: automated exposure control; mA and/or kV adjustment per patient size (includes targeted exams where dose is matched to clinical indication); or iterative reconstruction. Contrast material: OMNIPAQUE 350; Contrast volume: 95 ml; Contrast route: INTRAVENOUS (IV); COMPARISON: CT angio headneck* [id number] 03/29/2022 11:33 AM RADIATION DOSE METRICS: Total DLP (mGy-cm): 383.68 FINDINGS: ANTERIOR CIRCULATION: Right internal carotid artery: Intracranial segment is patent with no significant stenosis. No aneurysm. Right middle cerebral artery: No occlusion or significant stenosis. No aneurysm. Right anterior cerebral artery: No occlusion or significant stenosis. No aneurysm. Left internal carotid artery: Intracranial segment is patent with no significant stenosis. No aneurysm. Left middle cerebral artery: No occlusion or significant stenosis. No aneurysm. Left anterior cerebral artery: No occlusion or significant stenosis. No aneurysm. POSTERIOR CIRCULATION: Right vertebral artery: No occlusion or significant stenosis. No aneurysm. Left vertebral artery: No occlusion or significant stenosis. No aneurysm. Basilar artery: No occlusion or significant stenosis. No aneurysm. Right posterior cerebral artery: No occlusion or significant stenosis. No aneurysm. Left posterior cerebral artery: No occlusion or significant stenosis. No aneurysm. Brain: No definite mass, mass effect, or midline shift. Cerebral ventricles: No ventriculomegaly. Bones/joints: Unremarkable. No acute fracture. Soft tissues: Unremarkable. PROCEDURE INFORMATION: Exam: CTA Neck With Contrast Exam date and time: 11/20/2022 3:28 PM Age: 72 years old Clinical indication: Cognitive deficit; Altered mental status; Additional info: AMS TECHNIQUE: Imaging protocol: Computed tomographic angiography of the neck with contrast. 3D rendering (Not supervised by radiologist): MIP and/or 3D reconstructed images were created by the technologist. Radiation optimization: All CT scans at this facility use at least one of these dose optimization techniques: automated exposure control; mA and/or kV adjustment per patient size (includes targeted exams where dose is matched to clinical indication); or iterative reconstruction. Contrast material: OMNIPAQUE 350; Contrast volume: 95 ml; Contrast route: INTRAVENOUS (IV); COMPARISON: CT angio headneck* [id number] 03/29/2022 11:33 AM RADIATION DOSE METRICS: Total DLP (mGy-cm): 383.68 FINDINGS: Right common carotid artery: No stenosis. No dissection or occlusion. Right internal carotid artery: No stenosis of the extracranial segment. No dissection or occlusion. Right external carotid artery: No occlusion or stenosis of the origin. Left common carotid artery: Mild stenosis at the common carotid bulb. No dissection or occlusion. Left internal carotid artery: Mild stenosis at the origin of the left internal carotid artery. No dissection or occlusion. Left external carotid artery: No occlusion or stenosis of the origin. Right vertebral artery: No stenosis. No dissection or occlusion. Left vertebral artery: No stenosis. No dissection or occlusion. Thyroid: Multiple thyroid nodules noted the largest measuring 2.6 cm at the left thyroid lobe and isthmus. Soft tissues: Normal. No significant soft tissue swelling. Bones/joints: No acute fracture. CT/CT angio headneck* [id number] IMPRESSION: No large vessel stenosis or occlusion. IMPRESSION: Mild stenosis at the left common carotid bulb and origin of the left internal carotid artery. No severe stenosis or occlusion. COMMENTS: Consistent with the [employer]'s Incidental Findings Committee white paper (J Am Missy Radiol 2015): In patients aged 35 years and older with an incidental thyroid nodule equal to or greater than 1.[address], MRI or extrathyroidal US, further evaluation with dedicated thyroid US is recommended for patients with normal life expectancy and without comorbidities. For smaller nodules without suspicious features, no further evaluation or follow up is recommended. REFERENCES: NASCET CRITERIA. The degree of stenosis in the cervical segment of the internal carotid artery is based on NASCET criteria. Normal is no stenosis. Mild is less than 50% stenosis. Moderate is 50-69% stenosis. Severe is 70% to 99% stenosis. Total occlusion is no detectable patent lumen.
[2022-11-20 15:09] LABS: Acetaminophen < 5.0 ug/mL (10-30); Alcohol Level < 10 mg/dL (0-10); Salicylate < 0.3 mg/dL (3-10)
[2022-11-20 15:12] LABS: Amphetamines Screen Urine Negative (Negative); Barbiturates Screen Urine Negative (Negative); Benzodiazepines Screen Urine Negative (Negative); Cocaine Screen Urine Negative (Negative); Opiate Screen Urine Negative (Negative); PCP Screen Urine Negative (Negative); THC Screen Urine Negative (Negative)
[2022-11-20 15:32] LABS: Lactate (Lactic Acid level) 0.8 mmol/L (0.5-2.2)
--- NOTE | 2022-11-20 16:04 | ECG_ITS ---
[facility] Test Date: 2022-11-20 Pat Name: Rosie Martinez Department: Room: Gender: Female Embedded Nurse: : 1950 Requested By: Hank Garcia Order Number: [id number] Carlos MD: Nikki Doe M.D. Measurements Intervals [place] Rate: 50 P: 75 CT: 158 QRS: 42 QRSD: 82 T: 48 QT: 438 QTc: 403 Interpretive Statements SINUS BRADYCARDIA POSSIBLE LEFT ATRIAL ENLARGEMENT [-0.1mV P-WAVE IN V1/V2] NONSPECIFIC T-WAVE ABNORMALITY Compared to ECG 11/20/2022 14:12:01 Possible ischemia no longer present T-wave abnormality still present Electronically Signed On 11-21-2022 9:22:29 WIRE WHEELER by Nikki Doe M.D. [id number]
[2022-11-20 16:28] LABS: Troponin 5 2HR 16.07 ng/L (0-10)
[2022-11-20 16:31] LABS: Troponin 5 2HR Delta -0.93 ABS# (0-10)
[2022-11-20] MEDS: hyDRALAzine 20 mg/mL INJ 1 mL 10 MG IVP (16:43)
--- NOTE | 2022-11-20 17:38 | ECG_ITS ---
[facility] Test Date: 2022-11-20 Pat Name: Rosie Martinez Department: Room: ICU03 Gender: Female Presentation Manager: : 1950 Requested By: Aminata Johns Order Number: [id number] Carlos MD: Nikki Doe M.D. Measurements Intervals [place] Rate: 65 P: 74 MD: 161 QRS: 51 QRSD: 80 T: 56 QT: 424 QTc: 441 Interpretive Statements SINUS RHYTHM POSSIBLE LEFT ATRIAL ENLARGEMENT [-0.1mV P-WAVE IN V1/V2] NONSPECIFIC T-WAVE ABNORMALITY Compared to ECG 11/20/2022 16:41:47 Sinus bradycardia no longer present T-wave abnormality still present Electronically Signed On 11-21-2022 9:19:31 HEARING AID CONSULTANT by Nikki Doe M.D. [id number]
--- NOTE | 2022-11-20 19:30 | PM.HP ---
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 She is not suicidal, pleasantly confused, as per the she took unknown doses of clonidine today and became very lethargic fatigued. In the ER she was altered, she was given 1 dose of atropine, couple of doses of Narcan and then she was admitted to the ICU. Patient is pleasantly confused oriented to herself able to move all of her extremities, blood pressure is stable heart rate is in low 50s. Is asking for food Review of Systems General: Reports: ROS unobtainable due to medical condition Medications/Allergies Home Medications Medication Instructions Recorded Confirmed Last Taken Type amlodipine 10 mg tablet 10 mg PO DAILY #30 tabs 07/30/22 11/20/22 Unknown Rx atorvastatin 40 mg tablet 40 mg PO QPM #30 tabs 07/30/22 11/20/22 Unknown Rx lisinopril 20 mg tablet 40 mg PO DAILY #60 tabs 07/30/22 11/20/22 Unknown Rx nitroglycerin 0.4 mg sublingual 0.4 mg sublingual Q5M PRN Chest 08/12/22 11/20/22 Unknown Rx tablet (Nitrostat) Pain #25 tabs chlorthalidone 25 mg tablet 12.5 mg PO DAILY 11/20/22 11/20/22 Unknown History clonidine HCl 0.1 mg tablet 0.1 mg PO BID 11/20/22 11/20/22 11/20/22 History 0.3 mg clopidogrel 75 mg tablet 75 mg PO DAILY 11/20/22 11/20/22 Unknown History quetiapine 50 mg tablet (Seroquel) 150 mg PO BEDTIME 11/20/22 11/20/22 Unknown History Allergies Allergy/AdvReac Type Severity Reaction Status Date / Time codeine Allergy Unknown Unknown Verified 11/20/22 17:06 morphine Allergy Unknown Unknown Verified 11/20/22 17:06 Opioids - Morphine Analogues Allergy Unknown Unknown Verified 11/20/22 17:06 Opioids-Meperidine and Allergy Unknown Unknown Verified 11/20/22 17:06 Related Opioids-Methadone and Related Allergy Unknown Unknown Verified 11/20/22 17:06 hydrocodone Allergy VOMITING Verified 11/20/22 17:06 AND PASSING OUT oxycodone Allergy VOMITING,PASSES Verified 11/20/22 17:06 OUT PFSH Acute PFSH: Medical History Abdominal aortic aneurysm (AAA) 3.0 cm to 5.0 cm in diameter in female Abnormal EKG 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 by CTA Jan 2018 Arnold-Chiari malformation, type I Atrophy of left kidney Coronary artery disease Esophageal thickening incidental finding on CT 03/2021 High risk medication use Hyperlipidemia Hypertension, essential Mesenteric artery stenosis Obstructive sleep apnea Peripheral vascular disease multiple vessels Polypharmacy Primary osteoarthritis of knees, bilateral Seropositive rheumatoid arthritis of multiple joints Thyroid nodule incidental indeterminant finding on CT 03/2021 Uncontrolled hypertension UTI (urinary tract infection) Surgical History H/O hysterectomy with oophorectomy History of appendectomy History of total right knee replacement (TKR) S/P carpal tunnel release right, Dr. Hazel, 2013 S/P cataract extraction and insertion of intraocular lens bilateral S/P cervical spinal fusion ACDFF Dr. Dawn 12/07/2015 S/P right coronary artery (RCA) stent placement (~05/2019) Family History Mother CAD (coronary artery disease) Father No problems noted. Other Cancer Rheumatoid arthritis Denies family history of Chronic kidney disease (CKD) Systemic lupus erythematosus (SLE) in adult Lung disease Hypertension Social History Smoking and tobacco status: former smoker Alcohol intake: never Marital status: Current occupational status: retired History of recent travel: No (12/10/19) Vitals/I&O/Wt Last Vital Signs Temp 96.9 F L 11/20/22 14:01 Pulse 72 11/20/22 17:45 Resp 32 H 11/20/22 17:45 BP 113/85 11/20/22 17:45 Pulse Ox 99 11/20/22 17:45 O2 Del Method 11/20/22 14:01 Weight last 48 hrs Weight 71.668 kg Physical Exam Narrative: Patient is pleasantly confused NIH 0 Oriented to herself Able to make eye contact She is able to make her needs known She is asking for food When I asked her what brought her to the hospital she was clueless, Clinically looks dehydrated Malnourished Edentulous No signs of stroke S1, S2 sinus bradycardia heart rate in low 50s Systolic blood pressure 149 250 mmHg Able to move all of her extremities Doing well on room air Data 11/20/22 13:51 11/20/22 13:51 Micro: Microbiology 11/20/22 15:11 Blood Culture - Preliminary Blood SPECIMEN COLLECTED 11/20/22 15:03 Blood Culture - Preliminary Blood SPECIMEN COLLECTED A&P Assessment and plan (1) Acute alteration in mental status: (2) Clonidine overdose: (3) Falls frequently: (4) Renal artery stenosis: Plan Accidental overdose on clonidine Patient has history of disorganized thinking, dementia Currently she is hypotensive heart rate in low 50s She has received 1 dose of atropine and multiple doses of Narcan Monitored ICU for now She is oriented to herself No hemodynamic instability Abdominal aortic aneurysm she was recommended outpatient work-up with Dr. Rodrigez, not sure whether at this point if she would benefit from such interventions considering her psychiatric history As per the patient suffers from severe behavioral issues for which PCP recommended custodial placement Uncontrolled hypertension monitor for now as she took clonidine multiple dosages at home if systolic blood pressure is above 180 I would give her IV as needed medications because of her history of AAA She is listed as full code She is able to protect her airway, I will allow her to have mechanical soft diet QTC 441 Attestations Medical Necessity Statement*: Anticipating discharge within 48 hours Time Spent in Patient Care: 40 Coding Level of Care Code Acute Insulator Apprentice for Loulou Borrero Diagnoses Acute alteration in mental status R41.82 Clonidine overdose T46.5X1A Falls frequently R29.6 Renal artery stenosis I70.1
[2022-11-20] MEDS: heparin 5,000 unit/mL INJ 1 mL 5000 UNIT SUBCUT (20:05)
[2022-11-21] VITALS (14 sets, daily range): BP systolic 149–183; BP diastolic 58–94; PULSE 40–112; RESP 14–28; TEMP 36.3–36.9; O2SAT 95–99
[2022-11-21 03:14] LABS: Basophils % 0.8 %; Eosinophils % 0.2 %; Hematocrit 38.4 % (37.0-47.0); Hemoglobin 11.9 g/dL (11.5-15.3); Lymphocytes # 0.9 10^3/uL (0.8-4.8); Lymphocytes % 18.3 %; Mean Corpuscular Hemoglobin 26.5 pg (28.0-34.0); Mean Corpuscular Volume 85.5 fl (81-99); Mean Platelet Volume 11.6 fL (7.4-10.4); Monocytes # 0.5 10^3/uL (0.2-0.9); Monocytes % 9.1 %; Neutrophils # 3.52 10^3/uL (1.8-7.7); Neutrophils % 71.4 %; Nucleated Red Blood Cells % 0 %; Platelet Count 222 10^3/cmm (130-400); Red Blood Count 4.49 10^6/uL (4.1-5.3); White Blood Count 4.9 10^3/uL (4.0-10.0)
[2022-11-21 03:46] LABS: Alanine Aminotransferase 18 U/L (0-33); Albumin Level 3.5 g/dL (3.5-5.2); Alkaline Phosphatase 162 U/L (35-105); Aspartate Amino Transferase 26 U/L (0-32); Blood Urea Nitrogen 15 mg/dL (8-23); Calcium 10.1 mg/dL (8.5-10.5); Carbon Dioxide 25 mmol/L (22-29); Chloride 102 mmol/L (98-107); Globulin 2.4 g/dL (1.3-4.6); Glucose 78 mg/dL (65-115); Magnesium 2.4 mg/dL (1.7-2.3); Osmolality Calculated 284 mOsm/kg (285-295); Sodium 137 mmol/L (136-145); Total Protein 5.9 g/dL (6.6-8.7)
[2022-11-21 03:49] LABS: Anion Gap 13.9 (5-19); Potassium 3.9 mmol/L (3.5-5.1)
[2022-11-21] MEDS: heparin 5,000 unit/mL INJ 1 mL 5000 UNIT SUBCUT ×2 (05:20→18:20)
[2022-11-21] MEDS: amlodipine 10 mg Tablet PO (09:02)
[2022-11-21] MEDS: pantoprazole 40 mg SDV IVP (09:03)
--- NOTE | 2022-11-21 10:48 | PC.CHAP ---
Pastoral Care Encounter/Spiritual Assessment Type of Contact [] Declined rug cutter visit [] Patient/Family/Request visit [] Outpatient visit [] Follow-up visit [] Physician referral [] Code/Alert [x] Routine visit [] Staff referral [] Actively dying [] Patient sleeping [] Family support [] [] Out of room [] Palliative care [] [x] Receiving care in room [] Pre-surgical visit [] Trauma [] Long length of stay [x] ICU visit [] Other: Relational/Emotional Strength [] Patient feels connected with others/family/visitors/staff [] Distress [] Loneliness/isolation [] Abandonment Spirituality of Patient [] Person of Kassi [] Attends Tenriism of their Kassi [] Believes in Prayer [] Reads Bible or Jehovah'S Witness materials [] There are Spiritual issues to be addressed Fib[employer]lass [employer] Drawing Operator Interventions [x] Prayer [] Active listening [] Non-anxious presence [] Spiritual/emotional support [] Crisis/trauma care [] Spiritual counseling [] Bereavement support [] Provided bereavement packet [] Provided Bible/devotional materials [] Provided toy/stuffed animal, coloring book to patient or family member [] Provided Communion [] Anointing/Athena [] Salvation [x] Completed spiritual assessment [] Other: Impact on Illness or Injury [] Angry [] Fearful [] Anxious [] Often cries [] Exhaustion [] Unable to work [] Unable to attend sabianism [] Unable to walk/stand [] Unable to read [] Unable to drive [] Unable to eat/drink [] Unable to sleep [] Unable to be with family [] Patient intubated [] Other: Summary Time spent with patient
--- NOTE | 2022-11-21 11:30 | PC.NURSE ---
Report given to milton SLAUGHTER on med surge department. Patient transferred via whieel chair to room 250 bed 1.
--- NOTE | 2022-11-21 13:00 | PC.NURSE ---
1200 patient recieved from ICU to room 250 bed 1. Patient confused VS obtained.
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
[2022-11-21] MEDS: quetiapine 100 mg Tablet 150 MG PO (21:25)
[2022-11-22] VITALS (15 sets, daily range): BP systolic 138–199; BP diastolic 66–86; PULSE 64–88; RESP 16–22; TEMP 36.4–36.6; O2SAT 94–99
[2022-11-22] MEDS: heparin 5,000 unit/mL INJ 1 mL 5000 UNIT SUBCUT ×2 (05:32→18:15)
[2022-11-22 05:54] LABS: Basophils % 0.6 %; Eosinophils % 0.2 %; Hematocrit 36.9 % (37.0-47.0); Lymphocytes # 1.1 10^3/uL (0.8-4.8); Mean Corpuscular HGB Conc 32.5 g/dL (30.0-36.0); Mean Corpuscular Hemoglobin 27.3 pg (28.0-34.0); Mean Corpuscular Volume 84.1 fl (81-99); Mean Platelet Volume 10.9 fL (7.4-10.4); Monocytes # 0.4 10^3/uL (0.2-0.9); Monocytes % 9.4 %; Neutrophils # 3.06 10^3/uL (1.8-7.7); Neutrophils % 65.6 %; Nucleated Red Blood Cells % 0 %; Platelet Count 197 10^3/cmm (130-400); Red Blood Count 4.39 10^6/uL (4.1-5.3); Red Cell Distribution Width 14.9 % (12.1-15.1); White Blood Count 4.7 10^3/uL (4.0-10.0)
[2022-11-22 06:22] LABS: Anion Gap 11.6 (5-19); Blood Urea Nitrogen 14 mg/dL (8-23); Calcium 9.8 mg/dL (8.5-10.5); Carbon Dioxide 26 mmol/L (22-29); Chloride 109 mmol/L (98-107); Glucose 88 mg/dL (65-115); Osmolality Calculated 296 mOsm/kg (285-295); Potassium 3.6 mmol/L (3.5-5.1); Sodium 143 mmol/L (136-145)
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
[2022-11-22] MEDS: cloNIDine 0.1 mg Tablet PO ×2 (08:40→18:15)
[2022-11-22] MEDS: chlorthalidone 25 mg Tablet 12.5 MG PO (08:40)
[2022-11-22] MEDS: lisinopril 20 mg Tablet 40 MG PO (08:46)
[2022-11-22] MEDS: pantoprazole 40 mg SDV IVP (08:47)
[2022-11-22] MEDS: amlodipine 10 mg Tablet PO (08:47)
[2022-11-22 16:30] LABS: Add Urine Microscopic? YES; Bilirubin Urine Neg (Negative); Blood Urine 2+ (Negative); Glucose Urine UA Norm (Normal); Ketones Urine Negative (Negative); Leukocyte Esterase Urine 2+ (Negative); Nitrate Urine Positive (Negative); Protein Urine 1+ (Negative); Specific Gravity, Urine 1.015 (1.005-1.030); Urine Appearance Hazy (CLEAR); Urine Color Yellow (Yellow); Urobilinogen Urine Neg (Negative); pH Urine 6.5 (5-7)
[2022-11-22 16:40] LABS: Add Urine Culture? Yes; Bacteria Urine 3+ /hpf; RBC Urine 0-4 /hpf (0-2); Squamous Epithelial Cell Urine 0-4 /hpf (0-5); WBC Urine >100 /hpf (0-5)
[2022-11-22] MEDS: quetiapine 100 mg Tablet 150 MG PO (20:29)
[2022-11-22] MEDS: cefTRIAXone 1,000 MG in sodium chloride 0.9% (plus) 50 ML 100 MG IV (20:52)
[2022-11-23] VITALS (20 sets, daily range): BP systolic 116–179; BP diastolic 60–78; PULSE 50–61; RESP 15–18; TEMP 36.4–36.7; O2SAT 93–98; BMI 21.0
--- NOTE | 2022-11-23 04:02 | PC.NURSE ---
Patients heart rate is running 48-50 when aid took vital signs. Aid put patients tele back on her for nurse to monitor pulse.
[2022-11-23 05:11] LABS: Basophils % 0.7 %; Eosinophils % 0.2 %; Hematocrit 36.7 % (37.0-47.0); Hemoglobin 11.7 g/dL (11.5-15.3); Lymphocytes # 1.2 10^3/uL (0.8-4.8); Lymphocytes % 19.3 %; Mean Corpuscular HGB Conc 31.9 g/dL (30.0-36.0); Mean Corpuscular Hemoglobin 27.2 pg (28.0-34.0); Mean Corpuscular Volume 85.3 fl (81-99); Mean Platelet Volume 11.6 fL (7.4-10.4); Monocytes # 0.5 10^3/uL (0.2-0.9); Monocytes % 8.3 %; Neutrophils # 4.28 10^3/uL (1.8-7.7); Neutrophils % 71.3 %; Nucleated Red Blood Cells % 0 %; Platelet Count 203 10^3/cmm (130-400); Red Cell Distribution Width 15.5 % (12.1-15.1)
[2022-11-23] MEDS: heparin 5,000 unit/mL INJ 1 mL 5000 UNIT SUBCUT ×2 (05:44→18:29)
[2022-11-23] MEDS: cloNIDine 0.1 mg Tablet PO ×2 (10:17→18:45)
[2022-11-23] MEDS: amlodipine 10 mg Tablet PO (10:18)
[2022-11-23] MEDS: lisinopril 20 mg Tablet 40 MG PO (10:18)
[2022-11-23] MEDS: chlorthalidone 25 mg Tablet 12.5 MG PO (10:18)
[2022-11-23] MEDS: pantoprazole 40 mg SDV IVP (10:19)
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
[2022-11-23] MEDS: cefTRIAXone 1,000 MG in sodium chloride 0.9% (plus) 50 ML 100 MG IV (20:12)
[2022-11-23] MEDS: quetiapine 100 mg Tablet 150 MG PO (20:19)
[2022-11-24] VITALS (9 sets, daily range): BP systolic 127–161; BP diastolic 64–78; PULSE 53–67; RESP 15–23; TEMP 36.4–37.1; O2SAT 96–100; BMI 21.7
[2022-11-24] MEDS: heparin 5,000 unit/mL INJ 1 mL 5000 UNIT SUBCUT ×2 (05:15→16:57)
[2022-11-24] MEDS: cloNIDine 0.1 mg Tablet PO ×2 (09:47→16:53)
[2022-11-24] MEDS: chlorthalidone 25 mg Tablet 12.5 MG PO (09:48)
[2022-11-24] MEDS: amlodipine 10 mg Tablet PO (09:48)
[2022-11-24] MEDS: lisinopril 20 mg Tablet 40 MG PO (09:48)
[2022-11-24] MEDS: pantoprazole 40 mg SDV IVP (09:51)
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
[2022-11-24] MEDS: haloperidol inj 5 mg/mL INJ 1 mL 1 MG IM (18:21)
[2022-11-24] MEDS: cefTRIAXone 1,000 MG in sodium chloride 0.9% (plus) 50 ML 100 MG IV (19:39)
[2022-11-24] MEDS: quetiapine 100 mg Tablet 150 MG PO (21:04)
[2022-11-25] VITALS (10 sets, daily range): BP systolic 122–147; BP diastolic 52–79; PULSE 64–76; RESP 16–64; TEMP 36.3–36.8; O2SAT 94–96
--- NOTE | 2022-11-25 04:26 | P.PN_ITS ---
Subjective Subjective: Blood pressure improved Afebrile Currently on antibiotics human resources safety manager looking for placement Changed to p.o. antibiotics Give her Ensure to drink Vitals/I&O/Wt Last Vital Signs Temp 97.4 F L 11/25/22 03:35 Pulse 64 11/25/22 03:35 Resp 64 H 11/25/22 03:35 BP 147/79 11/25/22 03:35 Pulse Ox 96 11/25/22 03:35 O2 Del Method 11/24/22 16:08 FiO2 97 11/23/22 10:21 11/24/22 11/24/22 11/25/22 14:59 22:59 06:59 Intake Total 720 / 720 410 / 1130 150 / 1280 Balance 720 / 720 410 / 1130 150 / 1280 Weight last 48 hrs Weight 53.252 kg Weight 55.48 kg Weight 54.006 kg Physical Exam Narrative: No new focal deficit NIH 0 Oriented x2 S1, S2 Currently doing well on room air Will be redirectable Abdomen soft Nonfocal neuro exam No audible stridor or wheezing Euvolemic Data 11/23/22 04:06 11/22/22 05:41 Micro: Microbiology 11/21/22 15:45 Urine Culture - Final Urine,Clean Catch Escherichia coli A&P Assessment and plan (1) Acute alteration in mental status: (2) Clonidine overdose: (3) Falls frequently: (4) Renal artery stenosis: (5) Seropositive rheumatoid arthritis of multiple joints: (6) Alzheimer's dementia: Plan Continue antibiotics for Pansensitive E. coliUTI, Discontinue IV antibiotics and switch to Levaquin Clonidine overdose: Symptoms improved Waxing and waning mentation related to underlying Alzheimer's dementia has requested placement to memory unit at her [facility] human resources safety manager has been updated Full code Regular diet Blood pressure has improved DVT prophylaxis on board Attestations Medical Necessity Statement*: Awaiting placement Time Spent in Patient Care: 30 Coding Level of Care Code Acute Recording Studio Set Up Worker for Loulou Borrero Diagnoses Acute alteration in mental status R41.82 Clonidine overdose T46.5X1A Falls frequently R29.6 Renal artery stenosis I70.1 Seropositive rheumatoid arthritis of multiple joints M05.79 Alzheimer's dementia G30.9; F02.80
[2022-11-25] MEDS: levoFLOXacin 750 mg Tablet PO (05:23)
[2022-11-25] MEDS: heparin 5,000 unit/mL INJ 1 mL 5000 UNIT SUBCUT ×2 (05:24→18:06)
--- NOTE | 2022-11-25 07:50 | PC.SOCIAL ---
IMM not updated patient is currently in observation status.
[2022-11-25] MEDS: cloNIDine 0.1 mg Tablet PO ×2 (08:46→18:06)
[2022-11-25] MEDS: lisinopril 20 mg Tablet 40 MG PO (08:46)
[2022-11-25] MEDS: chlorthalidone 25 mg Tablet 12.5 MG PO (08:46)
[2022-11-25] MEDS: amlodipine 10 mg Tablet PO (08:47)
[2022-11-25] MEDS: pantoprazole 40 mg SDV IVP (09:41)
[2022-11-25] MEDS: quetiapine 100 mg Tablet 150 MG PO (19:53)
[2022-11-25] MEDS: haloperidol inj 5 mg/mL INJ 1 mL 1 MG IM (20:40)
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
[2022-11-26] VITALS (8 sets, daily range): BP systolic 123–159; BP diastolic 53–83; PULSE 61–85; RESP 15–17; TEMP 36.6–36.8; O2SAT 95–99
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
[2022-11-26] MEDS: heparin 5,000 unit/mL INJ 1 mL 5000 UNIT SUBCUT ×2 (05:52→18:11)
[2022-11-26] MEDS: levoFLOXacin 750 mg Tablet PO (05:53)
[2022-11-26] MEDS: amlodipine 10 mg Tablet PO (10:11)
[2022-11-26] MEDS: lisinopril 20 mg Tablet 40 MG PO (10:12)
[2022-11-26] MEDS: cloNIDine 0.1 mg Tablet PO ×2 (10:12→18:10)
[2022-11-26] MEDS: chlorthalidone 25 mg Tablet 12.5 MG PO (10:12)
[2022-11-26] MEDS: pantoprazole 40 mg SDV IVP (10:15)
--- NOTE | 2022-11-26 10:40 | PM.PN ---
Subjective Subjective: As per the EXPANDER MACHINE OPERATOR patient was a bit agitated last night combative and try to scratch the nursing staff last night Vitals/I&O/Wt Last Vital Signs Temp 97.9 F 11/26/22 08:00 Pulse 85 11/26/22 08:00 Resp 15 11/26/22 03:38 BP 135/83 11/26/22 10:12 Pulse Ox 98 11/26/22 08:00 O2 Del Method 11/26/22 03:38 FiO2 97 11/23/22 10:21 11/25/22 11/26/22 11/26/22 22:59 06:59 14:59 Intake Total 780 / 1040 Balance 780 / 1040 Weight last 48 hrs Weight 50.859 kg Weight 53.252 kg Physical Exam Narrative: No new focal deficits Euvolemic S1, S2 Saturating well room air Abdomen soft Data 11/23/22 04:06 11/22/22 05:41 Micro: Microbiology 11/20/22 15:11 Blood Culture - Final Blood NO GROWTH AFTER 5 DAYS 11/20/22 15:03 Blood Culture - Final Blood NO GROWTH AFTER 5 DAYS A&P Assessment and plan (1) Alzheimer's dementia: Plan Patient is awaiting placement Alzheimer's dementia with behavioral disturbance Currently on Seroquel at bedtime Hypertension: Improved We are treating her for UTI with Levaquin I am not changing any of her medications today Attestations Medical Necessity Statement*: Awaiting placement Time Spent in Patient Care: 10 Coding Level of Care Code Acute Shoe Worker for Loulou Borrero Diagnoses Alzheimer's dementia G30.9; F02.80
[2022-11-26] MEDS: quetiapine 100 mg Tablet 150 MG PO (20:52)
--- NOTE | 2022-11-26 23:16 | PC.NURSE ---
Dr. Kang notified of patient becoming combative with sitter x2. Patient was able to be verbally deescalated by this RN. Dr. Kang notified. PRN Haldol ordered for agitation that is unable to be verbally deescalated.
[2022-11-27] VITALS (9 sets, daily range): BP systolic 117–148; BP diastolic 63–79; PULSE 62–105; RESP 15–21; TEMP 36.4–36.8; O2SAT 97–99
[2022-11-27] MEDS: levoFLOXacin 750 mg Tablet PO (06:19)
[2022-11-27] MEDS: heparin 5,000 unit/mL INJ 1 mL 5000 UNIT SUBCUT (06:19)
[2022-11-27] MEDS: pantoprazole 40 mg SDV IVP (09:40)
[2022-11-27] MEDS: amlodipine 10 mg Tablet PO (10:16)
--- NOTE | 2022-11-27 11:32 | P.PN_ITS ---
Subjective Subjective: Patient had a relatively, night, still on one-to-one supervision During MDR was told it is harder for us to find a placement for her Vitals/I&O/Wt Last Vital Signs Temp 98.3 F 11/27/22 09:00 Pulse 62 11/27/22 09:00 Resp 15 11/27/22 09:00 BP 129/71 11/27/22 10:17 Pulse Ox 97 11/27/22 08:00 O2 Del Method 11/27/22 03:24 FiO2 97 11/23/22 10:21 11/26/22 11/27/22 11/27/22 22:59 06:59 14:59 Intake Total 240 / 440 Balance 240 / 440 Weight last 48 hrs Weight 52.673 kg Weight 50.859 kg Physical Exam Narrative: Dehydrated Laying supine No active discomfort S1, S2 Doing well on room air No new focal deficit 1: 1 supervision Data 11/23/22 04:06 11/22/22 05:41 A&P Assessment and plan (1) Alzheimer's dementia: Plan I am not changing any of her medications today She is already switched to p.o. antibiotics Awaiting placement Attestations Medical Necessity Statement*: Awaiting placement Time Spent in Patient Care: 5mins Coding Level of Care Code Acute General Forecaster for lola Fwd Diagnoses Alzheimer's dementia G30.9; F02.80
[2022-11-27] MEDS: cloNIDine 0.1 mg Tablet PO (17:51)
[2022-11-27] MEDS: quetiapine 100 mg Tablet 150 MG PO (20:29)
[2022-11-28] VITALS: BP 148/75; PULSE 96; RESP 20; TEMP 36.9; O2SAT 97
[2022-11-28 04:00] VITALS: BP 158/79; PULSE 88; RESP 23; TEMP 36.7; O2SAT 97
[2022-11-28 07:02] VITALS: BP 123/68; PULSE 73; RESP 15; TEMP 36.4; O2SAT 97
--- NOTE | 2022-11-28 09:28 | P.DS_ITS ---
Discharge Providers Date of Admission: 11/20/22 17:43 Date of Discharge: November 28, 2022 Attending Provider at Admission: Aminata Johns MD Attending Provider at Discharge: Taemra Jeffers MD Primary Care Provider: Silvia Peng MD Diagnoses at Discharge Discharge Diagnosis (1) Alzheimer's dementia: Status: Acute Reason for Visit Reason for Visit: AMS/ PINPOINT PUPILS Hospital Course Hospital Course 72-year-old female who was admitted for management and evaluation of accidental clonidine overdose. Patient was obtunded in the ER she was given multiple doses of Narcan, atropine that improved her mentation and blood pressure. She was kept in ICU for 24 hours then transferred to [facility]. has been struggling to get her accepted to [facility]. She is not very compliant with her medication, she has history of AAA, her antihypertensive regimen has been optimized, in the hospital her blood has been between 120s to 140s mmhg systolic. She is at risk of dehydration I will discontinue chlorthalidone and clonidine. Continue amlodipine, lisinopril, add a low-dose metoprolol, She was On [facility] when we were trying to find appropriate disposition/custodial for her because of lack of payer source, we were unable to get her accepted to any custodial. At this point we have no other option other than sending her home, is in agreement, is stating that he cannot be medical power of induction heat treater because of his significant past legal history, as per the case maker we might have to Hotline her if feels to take care of her, in case of readmission, we still have to wait for Medicaid approval in order to get her accepted otherwise there is no other pay source for her placement Physical Exam Narrative: Pleasant and cooperative today during my examination Laying supine No active discomfort S1, S2 Doing well on room air No new focal deficit Discharge Data Studies Completed and Pending Completed Studies During Hospitalization Category Date Time Status CT head wo con* [id number] Stat Cat Scan 11/20/22 14:03 Completed CTA head neck [CT angio headneck* [id number]] Stat Cat Scan 11/20/22 15:06 Completed XR chest 1V portable [id number] Stat Exams 11/20/22 14:03 Completed Pending at discharge Category Date Time Status Urine Culture Stat Lab 11/21/22 14:49 Uncollected Radiology Impressions Chest X-Ray 11/20/22 14:03 IMPRESSION: 1. No acute cardiopulmonary finding. No change. Head CT 11/20/22 14:03 IMPRESSION: 1. No acute intracranial abnormality. 2. Moderate diffuse cerebral atrophy and sequela of chronic small vessel ischemic disease. Head/Neck CTA 11/20/22 15:06 IMPRESSION: No large vessel stenosis or occlusion. IMPRESSION: Mild stenosis at the left common carotid bulb and origin of the left internal carotid artery. No severe stenosis or occlusion. COMMENTS: Consistent with the [employer]'s Incidental Findings Committee white paper (J Am Missy Radiol 2015): In patients aged 35 years and older with an incidental thyroid nodule equal to or greater than 1.[address], MRI or extrathyroidal US, further evaluation with dedicated thyroid US is recommended for patients with normal life expectancy and without comorbidities. For smaller nodules without suspicious features, no further evaluation or follow up is recommended. REFERENCES: NASCET CRITERIA. The degree of stenosis in the cervical segment of the internal carotid artery is based on NASCET criteria. Normal is no stenosis. Mild is less than 50% stenosis. Moderate is 50-69% stenosis. Severe is 70% to 99% stenosis. Total occlusion is no detectable patent lumen. Laboratory Results WBC 6.0 10^3/uL (4.0-10.0) 11/23/22 04:06 RBC 4.30 10^6/uL (4.1-5.3) 11/23/22 04:06 Hgb 11.7 g/dL (11.5-15.3) 11/23/22 04:06 Hct 36.7 % (37.0-47.0) L 11/23/22 04:06 MCV 85.3 fl (81-99) 11/23/22 04:06 MCH 27.2 pg (28.0-34.0) L 11/23/22 04:06 MCHC 31.9 g/dL (30.0-36.0) 11/23/22 04:06 RDW 15.5 % (12.1-15.1) H 11/23/22 04:06 Plt Count 203 10^3/cmm (130-400) 11/23/22 04:06 MPV 11.6 fL (7.4-10.4) H 11/23/22 04:06 Neut % (Auto) 71.3 % 11/23/22 04:06 Lymph % (Auto) 19.3 % 11/23/22 04:06 Centre % (Auto) 8.3 % 11/23/22 04:06 Eos % (Auto) 0.2 % 11/23/22 04:06 Baso % (Auto) 0.7 % 11/23/22 04:06 Neut # (Auto) 4.28 10^3/uL (1.8-7.7) 11/23/22 04:06 Lymph # (Auto) 1.2 10^3/uL (0.8-4.8) 11/23/22 04:06 Centre # (Auto) 0.5 10^3/uL (0.2-0.9) 11/23/22 04:06 Eos # (Auto) 0.0 10^3/uL (0.0-0.8) 11/23/22 04:06 Baso # (Auto) 0.0 10^3/uL (0.0-0.1) 11/23/22 04:06 Nucleated RBC % (auto) 0 % 11/23/22 04:06 Nucleated RBCs # 0.0 /100WBC 11/23/22 04:06 Specimen Type Art 11/20/22 14:03 Sample Site Lr 11/20/22 14:03 ABG pH 7.42 (7.35-7.45) 11/20/22 14:03 ABG pCO2 42.7 mmHg (35-45) 11/20/22 14:03 ABG pO2 79.1 mmHg (80.0-100.0) L 11/20/22 14:03 ABG HCO3 27.9 mmol/L (22-26) H 11/20/22 14:03 ABG Base Excess 3.1 mmol/L (-2.0-2.0) H 11/20/22 14:03 Александр Test Pos 11/20/22 14:03 Hematocrit 35.8 % (37-47) L 11/20/22 14:03 O2 Delivery Device Ra 11/20/22 14:03 FiO2 21.0 % 11/20/22 14:03 Specimen Drawn By Melisa 11/20/22 14:03 Sales Stock Associate ID Melisa 11/20/22 14:03 Blood Gas Notified Time Na 11/20/22 14:03 Sodium 143 mmol/L (136-145) 11/22/22 05:41 Potassium 3.6 mmol/L (3.5-5.1) 11/22/22 05:41 Chloride 109 mmol/L (98-107) H 11/22/22 05:41 Carbon Dioxide 26 mmol/L (22-29) 11/22/22 05:41 Anion Gap 11.6 (5-19) 11/22/22 05:41 BUN 14 mg/dL (8-23) 11/22/22 05:41 Creatinine 0.9 mg/dL (0.5-0.9) 11/22/22 05:41 GFR Calculation Not Reportable 11/22/22 05:41 Glucose 88 mg/dL (65-115) 11/22/22 05:41 Calculated Osmolality 296 mOsm/kg (285-295) H 11/22/22 05:41 Lactate 0.8 mmol/L (0.5-2.2) 11/20/22 15:03 Calcium 9.8 mg/dL (8.5-10.5) 11/22/22 05:41 Magnesium 2.4 mg/dL (1.7-2.3) H 11/21/22 02:00 Total Bilirubin 1.0 mg/dL (0.15-1.2) 11/21/22 02:00 AST 26 U/L (0-32) 11/21/22 02:00 ALT 18 U/L (0-33) 11/21/22 02:00 Alkaline Phosphatase 162 U/L (35-105) H 11/21/22 02:00 Creatine Kinase 49 U/L (26-192) 11/20/22 13:51 Troponin T Baseline 17 ng/L (0-10) H 11/20/22 13:51 Troponin T 120 Minute 16.07 ng/L (0-10) H 11/20/22 15:54 Delta Troponin T -0.93 ABS# (0-10) L 11/20/22 15:54 Troponin T Hi Sens 6Hr 16.20 ng/L (0-10) H 11/20/22 19:19 Troponin T Hi Sens 6Hr Delta -0.80 ng/L (0-12) L 11/20/22 19:19 Total Protein 5.9 g/dL (6.6-8.7) L 11/21/22 02:00 Albumin 3.5 g/dL (3.5-5.2) 11/21/22 02:00 Globulin 2.4 g/dL (1.3-4.6) 11/21/22 02:00 Procalcitonin 0.05 ng/mL (0-0.5) 11/20/22 13:51 TSH 0.69 uIU/mL (0.27-4.20) 11/20/22 13:51 Urine Color Yellow (Yellow) 11/21/22 15:45 Urine Appearance Hazy (CLEAR) A 11/21/22 15:45 Urine pH 6.5 (5-7) 11/21/22 15:45 Ur Specific [place] 1.015 (1.005-1.030) 11/21/22 15:45 Urine Protein 1+ (Negative) H 11/21/22 15:45 Urine Glucose (UA) Norm (Normal) 11/21/22 15:45 Urine Ketones Negative (Negative) 11/21/22 15:45 Urine Blood 2+ (Negative) H 11/21/22 15:45 Urine Nitrate Positive (Negative) H 11/21/22 15:45 Urine Bilirubin Neg (Negative) 11/21/22 15:45 Urine Urobilinogen Neg mg/dL (Negative) 11/21/22 15:45 Ur Leukocyte Esterase 2+ (Negative) H 11/21/22 15:45 Urine RBC 0-4 /hpf (0-2) H 11/21/22 15:45 Urine WBC >100 /hpf (0-5) H 11/21/22 15:45 Ur Squamous Epith Cells 0-4 /hpf (0-5) H 11/21/22 15:45 Ur Renal Epithelial Cell 0-4 /hpf 11/20/22 14:18 Amorphous Sediment Not Reportable 11/21/22 15:45 Urine Bacteria 3+ /hpf (NONE) H 11/21/22 15:45 Salicylates < 0.3 mg/dL (3-10) L 11/20/22 13:51 Urine Opiates Screen Negative ng/mL (Negative) 11/20/22 14:18 Acetaminophen < 5.0 ug/mL (10-30) L 11/20/22 13:51 Ur Barbiturates Screen Negative ng/mL (Negative) 11/20/22 14:18 Ur Phencyclidine Scrn Negative ng/mL (Negative) 11/20/22 14:18 Ur Amphetamines Screen Negative ng/mL (Negative) 11/20/22 14:18 U Benzodiazepines Scrn Negative ng/mL (Negative) 11/20/22 14:18 Urine Cocaine Screen Negative ng/mL (Negative) 11/20/22 14:18 U Marijuana (THC) Screen Negative ng/mL (Negative) 11/20/22 14:18 Ethyl Alcohol < 10 mg/dL (0-10) 11/20/22 13:51 Vitals Last Vital Signs Temp 97.6 F 11/28/22 07:02 Pulse 73 11/28/22 07:02 Resp 15 11/28/22 07:02 BP 123/68 11/28/22 07:02 Pulse Ox 97 11/28/22 07:02 O2 Del Method 11/28/22 07:02 FiO2 97 11/23/22 10:21 Discharge Plan Discharge Patient Disposition: Home Condition: Stable Prescriptions: Continued nitroglycerin [Nitrostat] 0.4 mg tablet, sublingual 0.4 mg SUBLINGUAL Q5M PRN (Reason: Chest Pain) Qty: 25 1RF Rx Instructions: do not exceed 3 doses per episode atorvastatin 40 mg tablet 40 mg PO QPM Qty: 30 0RF lisinopril 20 mg Tablet 40 mg PO DAILY Qty: 60 0RF amlodipine 10 mg Tablet 10 mg PO DAILY Qty: 30 0RF Seroquel 50 mg Tablet 150 mg PO BEDTIME clopidogrel 75 mg Tablet 75 mg PO DAILY Discontinued clonidine HCl 0.1 mg Tablet 0.1 mg PO BID chlorthalidone 25 mg tablet 12.5 mg PO DAILY Discharge Orders: Discharge Order (Routine); Ordered 11/28/22 Ordered By: Tamera Jeffers Referrals: Silvia Peng MD [Primary Care Provider] - Patient Instructions: Opioid Safety Discharge Attestations Time Spent in Discharge Care*: less than 30 min Status at Discharge: Cognitive status at discharge: cognitively intact , Behavioral status at discharge: cooperative , Quality Metrics Clinical Quality Measures [ No reported AMI, CVA or VTE this stay] Coding Level of Care Code Acute Chg FW DC note Diagnoses Alzheimer's dementia G30.9; F02.80
[2022-11-28 10:08] VITALS: BP 123/68
[2022-11-28 11:34] VITALS: BP 134/76; PULSE 95; RESP 15; TEMP 36.6; O2SAT 100
== END 2022-11-28 12:22 | disposition home or self-care (01) ==
LOC: ER 17:25 → ICU 17:44 → MEDSURG 11-21 12:39
PROVIDERS: Admitting Provider Internal Medicine; Emergency Provider Emergency Medicine; PCP Family Medicine; Visit Provider Internal Medicine
DX: G30.9 Alzheimer's disease, unspecified (principal); F02.80 Dementia in other diseases classified elsewhere, unspecified severity, without behavioral disturbance, psychotic disturbance, mood disturbance, and anxiety; T46.5X1A Poisoning by other antihypertensive drugs, accidental (unintentional), initial encounter; I10 Essential (primary) hypertension; N39.0 Urinary tract infection, site not specified; R41.82 Altered mental status, unspecified; R29.6 Repeated falls; I70.1 Atherosclerosis of renal artery; M05.79 Rheumatoid arthritis with rheumatoid factor of multiple sites without organ or systems involvement; Z87.891 Personal history of nicotine dependence; I25.10 Atherosclerotic heart disease of native coronary artery without angina pectoris; G47.33 Obstructive sleep apnea (adult) (pediatric); Z79.899 Other long term (current) drug therapy
CPT/HCPCS: 36415; 70450; 70496; 70498; 71045; 80048; 80053; 80306; 80307; 81001; 82550; 82803; 83605; 83735; 84145; 84443; 84484; 85025; 87040; 87077; 87086; 87186; 93005; 96365; 96372; 96375; 97110; 97161; 99285; C9113; G0378; J0360; J0461; J0696; J1630; J1644; J2310; Q9967

== ENCOUNTER 2022-12-04 13:08 | Emergency (ER) | payer MEDICARE, OTHER, SELFPAY ==
[2022-12-04] VITALS (8 sets, daily range): BP systolic 96–193; BP diastolic 57–139; PULSE 67–95; RESP 16; TEMP 36.7; O2SAT 95–100
--- NOTE | 2022-12-04 13:24 | ECG_ITS ---
[facility] Test Date: 2022-12-04 Pat Name: Rosie Martinez Department: Room: Gender: Female Communications Consultant: : [id number] Requested By: Pradip Brown Order Number: [id number] Carlos MD: Jaime Ordaz M.D. Measurements Intervals [place] Rate: 81 P: 75 ID: [id number] QRS: 43 QRSD: 77 T: 43 QT: 400 QTc: 464 Interpretive Statements SINUS RHYTHM WITH FREQUENT VENTRICULAR PREMATURE COMPLEXES NONSPECIFIC T-WAVE ABNORMALITY Compared to ECG 11/20/2022 18:12:12 Ventricular premature complex(es) now present T-wave abnormality still present Electronically Signed On 12-05-2022 8:56:23 FINISH CARPENTER by Jamie Ordaz M.D. [id number]
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
--- NOTE | 2022-12-04 13:47 | ED_ITS ---
HPI - General Adult General: Chief complaint: General Medical Stated complaint: Dementia Time Seen by Provider: 12/04/22 13:12 Source: patient Mode of arrival: ambulatory History of Present Illness: 72-year-old female presents to the emergency room via EMS. Does not have any specific complaints. Her told EMS he did not want her in the home anymore and wanted us to place her in the [facility]. When you go to talk to her she is mildly demented she complains of vague abdominal and chest discomfort but cannot give any specifics. She is frequently in the emergency room and has similar complaints. Blood pressure is significantly elevated. She is at her normal baseline mentation. She denies any dysuria urgency frequency vomiting or diarrhea. Relieving factors: none Exacerbating factors: none Associated symptoms: Reports confusion; Deny chest pain, cough, diaphoresis, decreased appetite, dyspnea, fevers/chills, headache(s), malaise, nausea, rash, palpitations, seizures, short of breath, syncope, vomiting or weakness Treatments prior to arrival: none Review of Systems Const: Denies: fever(s), chills, fatigue, malaise or diaphoresis ENMT: Denies: throat pain, ear or mastoid pain, nasal discharge or nasal congestion Card: Denies: chest pain, palpitations or syncope Resp: Denies: dyspnea GI: Denies: abdominal pain, nausea or vomiting : Denies: flank pain, difficulty voiding, dysuria, urinary frequency or urinary urgency Skin/Breast: Denies: rash Neuro: Reports: confusion; Denies: headache(s) [facility] ED PFSH: Medical History Abdominal aortic aneurysm (AAA) 3.0 cm to 5.0 cm in diameter in female Abnormal EKG Acute alteration in mental status Alzheimer's dementia 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 by CTA Jan 2018 Arnold-Chiari malformation, type I Atrophy of left kidney Clonidine overdose Coronary artery disease Esophageal thickening incidental finding on CT 03/2021 Falls frequently High risk medication use Hyperlipidemia Hypertension, essential Mesenteric artery stenosis Obstructive sleep apnea Peripheral vascular disease multiple vessels Polypharmacy Primary osteoarthritis of knees, bilateral Renal artery stenosis Seropositive rheumatoid arthritis of multiple joints Thyroid nodule incidental indeterminant finding on CT 03/2021 Uncontrolled hypertension UTI (urinary tract infection) Surgical History H/O hysterectomy with oophorectomy History of appendectomy History of total right knee replacement (TKR) S/P carpal tunnel release right, Dr. Hazel, 2013 S/P cataract extraction and insertion of intraocular lens bilateral S/P cervical spinal fusion ACDFF Dr. Dawn 12/07/2015 S/P right coronary artery (RCA) stent placement (~05/2019) Family History Mother CAD (coronary artery disease) Father No problems noted. Other Cancer Rheumatoid arthritis Denies family history of Chronic kidney disease (CKD) Systemic lupus erythematosus (SLE) in adult Lung disease Hypertension Social History Smoking and tobacco status: former smoker Alcohol intake: never Marital status: Current occupational status: retired History of recent travel: No (12/10/19) Physical Exam Const: GENERAL APPEARANCE: cooperative and comfortable ORIENTATION/CONSCIOUSNESS: Yes awake HENMT: COMMON NORMALS: normocephalic, atraumatic and hearing grossly normal bilaterally HEAD & SCALP: normocephalic and atraumatic Resp: COMMON NORMALS: normal respiratory effort, No retractions, No use of accessory muscles and clear to auscultation bilaterally AUSCULTATION: clear to auscultation bilaterally Cardio: COMMON NORMALS: regular rate, regular rhythm and No murmurs present (Cardio) RATE: regular rate RHYTHM: regular rhythm GI: COMMON NORMALS: Soft to palpation and No hepatosplenomegaly present AUSCULTATION: Yes normoactive bowel sounds PALPATION: Yes Soft to palpation, No Tenderness to palpation present (GI), No Guarding due to palpation present (GI) and Yes No hepatosplenomegaly present Extremity: COMMON NORMALS: normal to inspection, capillary refill normal, no clubbing, cyanosis or edema, no calf tenderness and no pedal edema Skin: COMMON NORMALS: no rashes or lesions noted GENERAL SKIN EXAM: no raphael hes or lesions noted Course Vital Signs: Vital signs: Vital Signs Temperature 98.0 F 12/04/22 13:11 Pulse Rate 87 12/04/22 17:30 Respiratory Rate 16 12/04/22 15:00 Blood Pressure 157/78 01/04/23 17:30 Pulse Oximetry 97 12/04/22 17:30 Oxygen Delivery Me thod 12/04/22 13:30 MDM - General Adult Medical Decision Making Patient has mild baseline cognitive deficit which is persisting and is at her norm. She has no fever no specific complaints labs and EKG reviewed as found on chart no acute changes on EKG no ST elevation. She did require some of her blood pressure medications but not taken her usual nighttime medicines. Patient will be discharged home with her . Initially was difficult to contact their placement health and welfare check and advised him that she was being discharged he came to the emergency room and gave her a ride home. Concerned about her conditions staff is [facility] department of family services. Medical Records I reviewed the patient's medical records. Lab Data I reviewed the patient's lab results. 12/04/22 14:49 12/04/22 14:49 Radiology Impressions Chest X-Ray 12/04/22 14:40 Impression: Atherosclerosis. Laboratory Results WBC 6.1 10^3/uL (4.0-10.0) 12/04/22 14:49 RBC 4.84 10^6/uL (4.1-5.3) 12/04/22 14:49 Hgb 13.1 g/dL (11.5-15.3) 12/04/22 14:49 Hct 41.2 % (37.0-47.0) 12/04/22 14:49 MCV 85.1 fl (81-99) 12/04/22 14:49 MCH 27.1 pg (28.0-34.0) L 12/04/22 14:49 MCHC 31.8 g/dL (30.0-36.0) 12/04/22 14:49 RDW 15.4 % (12.1-15.1) H 12/04/22 14:49 Plt Count 248 10^3/cmm (130-400) 12/04/22 14:49 MPV 10.6 fL (7.4-10.4) H 12/04/22 14:49 Neut % (Auto) 72.1 % 12/04/22 14:49 Lymph % (Auto) 18.1 % 12/04/22 14:49 [place] % (Auto) 8.6 % 12/04/22 14:49 Eos % (Auto) 0.2 % 12/04/22 14:49 Baso % (Auto) 0.8 % 12/04/22 14:49 Neut # (Auto) 4.39 10^3/uL (1.8-7.7) 12/04/22 14:49 Lymph # (Auto) 1.1 10^3/uL (0.8-4.8) 12/04/22 14:49 [place] # (Auto) 0.5 10^3/uL (0.2-0.9) 12/04/22 14:49 Eos # (Auto) 0.0 10^3/uL (0.0-0.8) 12/04/22 14:49 Baso # (Auto) 0.1 10^3/uL (0.0-0.1) 12/04/22 14:49 Nucleated RBC % (auto) 0 % 12/04/22 14:49 Nucleated RBCs # 0.0 /100WBC 12/04/22 14:49 Sodium 145 mmol/L (136-145) 12/04/22 14:49 Potassium 3.9 mmol/L (3.5-5.1) 12/04/22 14:49 Chloride 109 mmol/L (98-107) H 12/04/22 14:49 Carbon Dioxide 25 mmol/L (22-29) 12/04/22 14:49 Anion Gap 14.9 (5-19) 12/04/22 14:49 BUN 20 mg/dL (8-23) 12/04/22 14:49 Creatinine 0.8 mg/dL (0.5-0.9) 12/04/22 14:49 GFR Calculation Not Reportable 12/04/22 14:49 Glucose 94 mg/dL (65-115) 12/04/22 14:49 Calculated Osmolality 302 mOsm/kg (285-295) H 12/04/22 14:49 Calcium 9.7 mg/dL (8.5-10.5) 12/04/22 14:49 Total Bilirubin 0.6 mg/dL (0.15-1.2) 12/04/22 14:49 AST 27 U/L (0-32) 12/04/22 14:49 ALT 23 U/L (0-33) 12/04/22 14:49 Alkaline Phosphatase 119 U/L (35-105) H 12/04/22 14:49 Troponin T Baseline 17 ng/L (0-10) H 12/04/22 14:49 Troponin T 120 Minute 19.33 ng/L (0-10) H 12/04/22 16:48 Delta Troponin T 2.33 ABS# (0-10) 12/04/22 16:48 Total Protein 5.8 g/dL (6.6-8.7) L 12/04/22 14:49 Albumin 3.9 g/dL (3.5-5.2) 12/04/22 14:49 Globulin 1.9 g/dL (1.3-4.6) 12/04/22 14:49 Discharge Plan Discharge Patient Disposition: Home Clinical Impression: Atypical chest pain, Chronic abdominal pain Condition: Stable Prescriptions: No Action nitroglycerin [Nitrostat] 0.4 mg tablet, sublingual 0.4 mg SUBLINGUAL Q5M PRN (Reason: Chest Pain) Qty: 25 1RF Rx Instructions: do not exceed 3 doses per episode atorvastatin 40 mg tablet 40 mg PO QPM Qty: 30 0RF lisinopril 20 mg Tablet 40 mg PO DAILY Qty: 60 0RF amlodipine 10 mg Tablet 10 mg PO DAILY Qty: 30 0RF quetiapine [Seroquel] 50 mg Tablet 150 mg PO BEDTIME clopidogrel 75 mg Tablet 75 mg PO DAILY metoprolol tartrate 25 mg tablet 12.5 mg PO BID Qty: 60 0RF Discharge Orders: Discharge ED (Routine); Ordered 12/04/22 Ordered By: Pradip Brown Referrals: Silvia Peng MD [Primary Care Provider] - Patient Instructions: Abdominal Pain (ED), Opioid Safety, Pain Management Coding Level of Care Code ED Fax Machine Operator for Loulou Borrero
--- NOTE | 2022-12-04 14:40 | XR_ITS ---
WS: [id number] Portable AP upright chest, 12/04/2022 Clinical Data: dyspnea/cough Comparison: Portable chest, 11/20/2022 Findings: No nodules, masses or effusions are seen. The heart is normal. The pulmonary vascularity is not increased. No pneumonia or pneumothorax is seen. The aortic arch and descending thoracic aorta s how calcification and tortuosity. The patient's had an anterior cervical disc fusion. XR/XR chest 1V portable [id number] Impression: Atherosclerosis.
[2022-12-04 15:06] LABS: Basophils # 0.1 10^3/uL (0.0-0.1); Basophils % 0.8 %; Eosinophils % 0.2 %; Hematocrit 41.2 % (37.0-47.0); Hemoglobin 13.1 g/dL (11.5-15.3); Lymphocytes # 1.1 10^3/uL (0.8-4.8); Lymphocytes % 18.1 %; Mean Corpuscular HGB Conc 31.8 g/dL (30.0-36.0); Mean Corpuscular Hemoglobin 27.1 pg (28.0-34.0); Mean Corpuscular Volume 85.1 fl (81-99); Mean Platelet Volume 10.6 fL (7.4-10.4); Monocytes # 0.5 10^3/uL (0.2-0.9); Monocytes % 8.6 %; Neutrophils # 4.39 10^3/uL (1.8-7.7); Neutrophils % 72.1 %; Nucleated Red Blood Cells % 0 %; Platelet Count 248 10^3/cmm (130-400); Red Blood Count 4.84 10^6/uL (4.1-5.3); Red Cell Distribution Width 15.4 % (12.1-15.1); White Blood Count 6.1 10^3/uL (4.0-10.0)
[2022-12-04 15:25] LABS: Troponin(5th) Baseline 17 ng/L (0-10)
[2022-12-04 15:27] LABS: Alanine Aminotransferase 23 U/L (0-33); Albumin Level 3.9 g/dL (3.5-5.2); Alkaline Phosphatase 119 U/L (35-105); Anion Gap 14.9 (5-19); Aspartate Amino Transferase 27 U/L (0-32); Blood Urea Nitrogen 20 mg/dL (8-23); Calcium 9.7 mg/dL (8.5-10.5); Carbon Dioxide 25 mmol/L (22-29); Chloride 109 mmol/L (98-107); Globulin 1.9 g/dL (1.3-4.6); Glucose 94 mg/dL (65-115); Osmolality Calculated 302 mOsm/kg (285-295); Potassium 3.9 mmol/L (3.5-5.1); Sodium 145 mmol/L (136-145); Total Bilirubin 0.6 mg/dL (0.15-1.2); Total Protein 5.8 g/dL (6.6-8.7)
[2022-12-04] MEDS: amlodipine 10 mg Tablet PO (15:33)
[2022-12-04] MEDS: lisinopril 20 mg Tablet PO (15:33)
[2022-12-04] MEDS: hyDRALAzine 20 mg/mL INJ 1 mL IM (15:33)
--- NOTE | 2022-12-04 16:09 | ECG_ITS ---
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 Measurements Intervals [place] Rate: 86 P: 81 [place]: 145 QRS: 56 QRSD: 84 T: 48 QT: 374 QTc: 447 Interpretive Statements SINUS RHYTHM POSSIBLE LEFT ATRIAL ENLARGEMENT [-0.1mV P-WAVE IN V1/V2] NONSPECIFIC ST & T-WAVE ABNORMALITY Compared to ECG 12/04/2022 13:24:55 Ventricular premature complex(es) no longer present T-wave abnormality still present Electronically Signed On 12-05-2022 8:57:14 CLINICAL SYSTEMS EDUCATOR by Jamie Ordaz M.D. [id number]
--- NOTE | 2022-12-04 17:05 | PC.NURSE ---
DR. MOHAMUD INSTRUCTED TO [facility] [place] [facility]
[2022-12-04 17:32] LABS: Troponin 5 2HR 19.33 ng/L (0-10)
[2022-12-04 17:39] LABS: Troponin 5 2HR Delta 2.33 ABS# (0-10)
== END 2022-12-04 18:23 | disposition home or self-care (01) ==
PROVIDERS: Emergency Provider Family Medicine; PCP Family Medicine
DX: R07.89 Other chest pain (principal); G89.29 Other chronic pain; R10.9 Unspecified abdominal pain; Z79.02 Long term (current) use of antithrombotics/antiplatelets; Z87.891 Personal history of nicotine dependence; G30.9 Alzheimer's disease, unspecified; F02.80 Dementia in other diseases classified elsewhere, unspecified severity, without behavioral disturbance, psychotic disturbance, mood disturbance, and anxiety; I25.10 Atherosclerotic heart disease of native coronary artery without angina pectoris; E78.5 Hyperlipidemia, unspecified; I10 Essential (primary) hypertension
CPT/HCPCS: 36415; 71045; 80053; 84484; 85025; 93005; 96372; 99285; J0360

== ENCOUNTER 2022-12-20 01:00 | Emergency (ER) | payer MEDICARE, OTHER, SELFPAY ==
[2022-12-20 01:01] VITALS: BP 210/111; PULSE 72; RESP 18; TEMP 36.9; O2SAT 99
--- NOTE | 2022-12-20 01:09 | ECG_ITS ---
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 Measurements Intervals [place] Rate: 82 P: 75 LA: 144 QRS: 6 QRSD: 77 T: 18 QT: 375 QTc: 439 Interpretive Statements SINUS RHYTHM WITH OCCASIONAL VENTRICULAR PREMATURE COMPLEXES Compared to ECG 12/04/2022 16:09:29 Ventricular premature complex(es) now present T-wave abnormality no longer present Electronically Signed On 12-20-2022 14:39:25 GAS AND OIL CHECKER by Jamie Ordaz M.D. [email or web address] ([id number] f
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
[2022-12-20 01:15] VITALS: BP 235/114; PULSE 74; RESP 16; O2SAT 99
[2022-12-20] MEDS: hyDRALAzine 20 mg/mL INJ 1 mL 10 MG IVP (01:22)
[2022-12-20 01:23] LABS: Basophils % 0.5 %; Eosinophils % 0.3 %; Hematocrit 42.9 % (37.0-47.0); Hemoglobin 13.4 g/dL (11.5-15.3); Lymphocytes # 1.3 10^3/uL (0.8-4.8); Lymphocytes % 21.5 %; Mean Corpuscular HGB Conc 31.2 g/dL (30.0-36.0); Mean Corpuscular Hemoglobin 26.7 pg (28.0-34.0); Mean Corpuscular Volume 85.6 fl (81-99); Mean Platelet Volume 10.8 fL (7.4-10.4); Monocytes # 0.6 10^3/uL (0.2-0.9); Monocytes % 10.4 %; Neutrophils # 3.98 10^3/uL (1.8-7.7); Neutrophils % 67.1 %; Nucleated Red Blood Cells % 0 %; Platelet Count 179 10^3/cmm (130-400); Red Blood Count 5.01 10^6/uL (4.1-5.3); Red Cell Distribution Width 16.5 % (12.1-15.1); White Blood Count 5.9 10^3/uL (4.0-10.0)
[2022-12-20 01:31] VITALS: BP 206/79; PULSE 71; RESP 16; O2SAT 100
[2022-12-20 01:43] LABS: Alanine Aminotransferase 21 U/L (0-33); Albumin Level 4.2 g/dL (3.5-5.2); Alkaline Phosphatase 146 U/L (35-105); Anion Gap 14.5 (5-19); Aspartate Amino Transferase 27 U/L (0-32); Blood Urea Nitrogen 11 mg/dL (8-23); Calcium 9.8 mg/dL (8.5-10.5); Carbon Dioxide 24 mmol/L (22-29); Chloride 104 mmol/L (98-107); Globulin 2.4 g/dL (1.3-4.6); Glucose 105 mg/dL (65-115); Osmolality Calculated 288 mOsm/kg (285-295); Potassium 3.5 mmol/L (3.5-5.1); Sodium 139 mmol/L (136-145); Total Bilirubin 0.8 mg/dL (0.15-1.2); Total Protein 6.6 g/dL (6.6-8.7)
[2022-12-20 01:49] LABS: Acetaminophen < 5.0 ug/mL (10-30); Salicylate < 0.3 mg/dL (3-10)
[2022-12-20 02:16] VITALS: BP 224/96; PULSE 74; RESP 16; O2SAT 97
[2022-12-20] MEDS: labetalol 5 mg/mL SDV 20mL 10 MG IVP (02:23)
[2022-12-20 02:31] VITALS: BP 160/94; PULSE 76; RESP 16; O2SAT 99
[2022-12-20 02:46] VITALS: BP 209/95; PULSE 75; RESP 16; O2SAT 97
== END 2022-12-20 04:16 | disposition home or self-care (01) ==
PROVIDERS: Emergency Provider Emergency Medicine; PCP Family Medicine
DX: I10 Essential (primary) hypertension (principal); Z79.02 Long term (current) use of antithrombotics/antiplatelets; Z87.891 Personal history of nicotine dependence; G30.9 Alzheimer's disease, unspecified; F02.80 Dementia in other diseases classified elsewhere, unspecified severity, without behavioral disturbance, psychotic disturbance, mood disturbance, and anxiety; I25.10 Atherosclerotic heart disease of native coronary artery without angina pectoris; E78.5 Hyperlipidemia, unspecified
CPT/HCPCS: 80053; 80307; 85025; 93005; 96374; 96375; 99284; J0360; J3490

== ENCOUNTER 2023-01-18 14:28 | Emergency (ER) | payer MEDICARE, SELFPAY ==
--- NOTE | 2023-01-18 14:29 | ED_ITS ---
HPI - Fall General: Chief Complaint: Weakness Stated Complaint: MULT FALLS Time Seen by Provider: 01/18/23 14:29 Limitations: altered mental status History of Present Illness: Ms. Martinez is a 72-year-old lady with complex past medical history presenting to the emergency department for apparent recurrent falls. Patient herself is a very poor historian with a history of underlying dementia likely. She is back at home unfortunately and seems to lack signifi cant assistance while at home. She endorses falling multiple times and hitting the ground for unclear reason. She does not think that she was knocked out. Does endorse mild generalized pain. No other significant changes in health reported. Review of Systems General: Reports: ROS unobtainable due to mental status PFSH ED PFSH: Medical History Abdominal aortic aneurysm (AAA) 3.0 cm to 5.0 cm in diameter in female Abnormal EKG Acute alteration in mental status Alzheimer's dementia 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 by CTA Jan 2018 Arnold-Chiari malformation, type I Atrophy of left kidney Clonidine overdose Coronary artery disease Esophageal thickening incidental finding on CT 03/2021 Falls frequently High risk medication use Hyperlipidemia Hypertension, essential Mesenteric artery stenosis Obstructive sleep apnea Peripheral vascular disease multiple vessels Polypharmacy Primary osteoarthritis of knees, bilateral Renal artery stenosis Seropositive rheumatoid arthritis of multiple joints Thyroid nodule incidental indeterminant finding on CT 03/2021 Uncontrolled hypertension UTI (urinary tract infection) Surgical History H/O hysterectomy with oophorectomy History of appendectomy History of total right knee replacement (TKR) S/P carpal tunnel release right, Dr. Hazel, 2014 S/P cataract extraction and insertion of intraocular lens bilateral S/P cervical spinal fusion ACDFF Dr. Dawn 12/07/2015 S/P right coronary artery (RCA) stent placement (~05/2019) Family History Mother CAD (coronary artery disease) Father No problems noted. Other Cancer Rheumatoid arthritis Denies family history of Chronic kidney disease (CKD) Systemic lupus erythematosus (SLE) in adult Lung disease Hypertension Social History Smoking and tobacco status: former smoker Alcohol intake: never Marital status: Current occupational status: retired Physical Exam Const: COMMON NORMALS: alert GENERAL APPEARANCE: cooperative and well developed HENMT: COMMON NORMALS: normocephalic and atraumatic HEAD & SCALP: normocephalic and atraumatic THROAT: posterior oropharynx normal OTHER: No castillo signs or raccoon eyes. No hemotympanum. No otorrhea or rhinorrhea. Jaw alignment normal. Dentition baseline. No obvious bony step-offs. No septal hematoma. No evidence of ocular entrapment. Eye: COMMON NORMALS: conjunctivae normal CONJUNCTIVA: Yes conjunctivae normal SCLERA: sclerae normal Neck/C-Spine: COMMON NORMALS: supple GENERAL: Yes trachea midline Resp: COMMON NORMALS: clear to auscultation bilaterally EFFORT & INSPECTION: Yes able to speak in complete sentences AUSCULTATION: clear to auscultation bilaterally Cardio: COMMON NORMALS: regular rate and regular rhythm RATE: regular rate RHYTHM: regular rhythm GI: COMMON NORMALS: Soft to palpation PALPATION: Yes Soft to palpation, Yes Tenderness to palpation present (GI), No Guarding due to palpation present (GI) and No Rigid due to palpation Extremity: GENERAL: Yes normal exam except as noted and No edema Neuro: COMMON NORMALS: moves all extremities SENSORIUM/ORIENTATION: Yes alert and Yes Orientation impaired Psych: MEMORY/COGNITION: Yes memory grossly impaired Course Vital Signs: Vital signs: Vital Signs Temperature 98.6 F 01/18/23 14:32 Pulse Rate 70 01/18/23 16:00 Respiratory Rate 16 01/18/23 15:21 Blood Pressure 197/111 01/18/23 16:00 Pulse Oximetry 100 01/18/23 15:21 Oxygen Delivery Me thod 01/18/23 15:21 MDM - Fall Medical Decision Making 71-year-old lady with history of dementia presenting for recurrent falls. Patient has a longstanding history of recurrent falls and waxing and waning mental status. Head to toe exam performed. Given the limited history and physical exam additional evaluation is appropriate. EKG demonstrates sinus rhythm with normal axis and intervals, no STEMI. Labs with no significant hematologic abnormality. Metabolic panel similarly fairly unremarkable. CT imaging negative for acute traumatic injury. Incidental end's discussed with patient. Stable aortic findings present. Patient given low-dose Zyprexa for agitation. Most likely etiology of symptoms is frequent falls and mental status change related to baseline medical conditions. There is no reason for admission at this time. The results of ED evaluation were discussed with the patient including pr escriptions and/or symptomatic cares (if applicable) including appropriate and responsible use, followup plan, and return precautions. The patient verbalized understanding and felt safe for discharge. Medical Records I reviewed the patient's medical records. Lab Data I reviewed the patient's lab results. 01/18/23 16:46 01/18/23 16:46 Radiology Impressions Cervical Spine CT 01/18/23 14:37 IMPRESSION: No acute findings. COMMENTS: Consistent with the [employer]'s Incidental Findings Committee white paper (J Am Missy Radiol 2015): In patients aged 35 years and older with an incidental thyroid nodule equal to or greater than 1.[address], MRI or extrathyroidal US, further evaluation with dedicated thyroid US is recommended for patients with normal life expectancy and without comorbidities. For smaller nodules without suspicious features, no further evaluation or follow up is recommended. Chest/Abdomen/Pelvis CT 01/18/23 14:37 IMPRESSION: No acute bone fracture. No evidence of traumatic injury of the internal organs. Stable diffuse ectasia of the aortic arch and of the descending aorta. IMPRESSION: No acute bone fracture. No evidence of traumatic injury of the internal organs. Stable chronic findings as described including 4.4 cm nonruptured infrarenal abdominal aortic aneurysm. Head CT 01/18/23 14:37 IMPRESSION: No acute intracranial abnormality. Laboratory Results WBC 6.6 10^3/uL (4.0-10.0) 01/18/23 16:46 RBC 4.59 10^6/uL (4.1-5.3) 01/18/23 16:46 Hgb 12.6 g/dL (11.5-15.3) 01/18/23 16:46 Hct 40.6 % (37.0-47.0) 01/18/23 16:46 MCV 88.5 fl (81-99) 01/18/23 16:46 MCH 27.5 pg (28.0-34.0) L 01/18/23 16:46 MCHC 31.0 g/dL (30.0-36.0) 01/18/23 16:46 RDW 16.4 % (12.1-15.1) H 01/18/23 16:46 Plt Count 225 10^3/cmm (130-400) 01/18/23 16:46 MPV 11.0 fL (7.4-10.4) H 01/18/23 16:46 Neut % (Auto) 81.4 % 01/18/23 16:46 Lymph % (Auto) 11.1 % 01/18/23 16:46 Titus % (Auto) 6.7 % 01/18/23 16:46 Eos % (Auto) 0.0 % 01/18/23 16:46 Baso % (Auto) 0.6 % 01/18/23 16:46 Neut # (Auto) 5.35 10^3/uL (1.8-7.7) 01/18/23 16:46 Lymph # (Auto) 0.7 10^3/uL (0.8-4.8) L 01/18/23 16:46 Titus # (Auto) 0.4 10^3/uL (0.2-0.9) 01/18/23 16:46 Eos # (Auto) 0.0 10^3/uL (0.0-0.8) 01/18/23 16:46 Baso # (Auto) 0.0 10^3/uL (0.0-0.1) 01/18/23 16:46 Nucleated RBC % (auto) 0 % 01/18/23 16:46 Nucleated RBCs # 0.0 /100WBC 01/18/23 16:46 Sodium 136 mmol/L (136-145) 01/18/23 16:46 Potassium 4.0 mmol/L (3.5-5.1) 01/18/23 16:46 Chloride 99 mmol/L (98-107) 01/18/23 16:46 Carbon Dioxide 27 mmol/L (22-29) 01/18/23 16:46 Anion Gap 14.0 (5-19) 01/18/23 16:46 BUN 10 mg/dL (8-23) 01/18/23 16:46 Creatinine 1.0 mg/dL (0.5-0.9) H 01/18/23 16:46 GFR Calculation Not Reportable 01/18/23 16:46 Glucose 93 mg/dL (65-115) 01/18/23 16:46 POC Glucose 98 mg/dL (70-110) 01/18/23 14:43 Calculated Osmolality 281 mOsm/kg (285-295) L 01/18/23 16:46 Calcium 10.3 mg/dL (8.5-10.5) 01/18/23 16:46 Total Bilirubin 0.9 mg/dL (0.15-1.2) 01/18/23 16:46 AST 26 U/L (0-32) 01/18/23 16:46 ALT 18 U/L (0-33) 01/18/23 16:46 Alkaline Phosphatase 135 U/L (35-105) H 01/18/23 16:46 Total Protein 5.9 g/dL (6.6-8.7) L 01/18/23 16:46 Albumin 3.6 g/dL (3.5-5.2) 01/18/23 16:46 Globulin 2.3 g/dL (1.3-4.6) 01/18/23 16:46 Discharge Plan Discharge Patient Disposition: Home Clinical Impression: Frequent falls, Fall, Dementia, Non compliance w medication regimen, Generalized weakness Condition: Stable Prescriptions: No Action nitroglycerin [Nitrostat] 0.4 mg tablet, sublingual 0.4 mg SUBLINGUAL Q5M PRN (Reason: Chest Pain) Qty: 25 1RF Rx Instructions: do not exceed 3 doses per episode atorvastatin 40 mg tablet 40 mg PO QPM Qty: 30 0RF lisinopril 20 mg Tablet 40 mg PO DAILY Qty: 60 0RF amlodipine 10 mg Tablet 10 mg PO DAILY Qty: 30 0RF quetiapine [Seroquel] 50 mg Tablet 150 mg PO BEDTIME clopidogrel 75 mg Tablet 75 mg PO DAILY metoprolol tartrate 25 mg tablet 12.5 mg PO BID Qty: 60 0RF Discharge Orders: Discharge ED (Routine); Ordered 01/18/23 Ordered By: Hank Garcia Referrals: Silvia Peng MD [Primary Care Provider] - Discharge Diet: Usual diet Patient Instructions: Fall Prevention for Older Adults (ED), Contusion in Adults (ED) Activity Restrictions/Additional Instructions: Thank you for visiting the emergency department. You were seen and evaluated for frequent falls. No acute internal injury was identified. You have continued many incidental findings however these are largely unchanged. Please follow-up with your primary care provider regarding these. Please ensure caution when walking and moving around as your balance is not very good. Return to the emergency department for anything that you are concerned about and feel needs emergency department evaluation. Coding Level of Care Code ED Survey Research Teacher for Loulou Borrero
[2023-01-18 14:32] VITALS: BP 150/79; PULSE 70; RESP 16; TEMP 37; O2SAT 96; BMI 23.0
--- NOTE | 2023-01-18 14:37 | CTR_ITS ---
PROCEDURE INFORMATION: Exam: CT Cervical Spine Without Contrast Exam date and time: 01/18/2023 2:53 PM Age: 72 years old Clinical indication: Other: Multiple falls; AMS; Additional info: Falls, AMS TECHNIQUE: Imaging protocol: Computed tomography of the cervical spine without contrast. Radiation optimization: All CT scans at this facility use at least one of these dose optimization techniques: automated exposure control; mA and/or kV adjustment per patient size (includes targeted exams where dose is matched to clinical indication); or iterative reconstruction. Other protocol: This patient has received 21 known CTs and 0 known cardiac nuclear medicine studies in the 12 months prior to the current study. COMPARISON: CT cervical spin wo con* [id number] 07/30/2022 5:32 AM RADIATION DOSE METRICS: Total DLP (mGy-cm): 183.2 FINDINGS: Bones/joints: Intact ACDF hardware with intervertebral disc spacer at the C5-C6 segment. No acute fracture. No spinal malalignment. No significant disc bulge or herniation. No severe spinal canal stenosis. Lungs: Lung apices are normal. Thyroid: 2 cm left thyroid lobe nodule noted. Soft tissues: Unremarkable. CT/CT cervical spin wo con* [id number] IMPRESSION: No acute findings. COMMENTS: Consistent with the [employer]'s Incidental Findings Committee white paper (J Am Missy Radiol 2015): In patients aged 35 years and older with an incidental thyroid nodule equal to or greater than 1.[address], MRI or extrathyroidal US, further evaluation with dedicated thyroid US is recommended for patients with normal life expectancy and without comorbidities. For smaller nodules without suspicious features, no further evaluation or follow up is recommended.
--- NOTE | 2023-01-18 14:37 | CTR_ITS ---
PROCEDURE INFORMATION: Exam: CT Chest Without Contrast; Diagnostic Exam date and time: 01/18/2023 2:58 PM Age: 72 years old Clinical indication: Injury or trauma; Blunt; Generalized; Other: Multiple falls; Prior surgery; Surgery date: 6+ months; Surgery type: Back surgery; Additional info: Falls, AMS TECHNIQUE: Imaging protocol: Diagnostic computed tomography of the chest without contrast. Radiation optimization: All CT scans at this facility use at least one of these dose optimization techniques: automated exposure control; mA and/or kV adjustment per patient size (includes targeted exams where dose is matched to clinical indication); or iterative reconstruction. Other protocol: This patient has received 21 known CTs and 0 known cardiac nuclear medicine studies in the 12 months prior to the current study. COMPARISON: CTA chest 07/07/2022 and 09/09/2021 RADIATION DOSE METRICS: Total DLP (mGy-cm): 386.31 FINDINGS: Thyroid: Stable 2 x 1.3 cm hypodense left thyroid nodule likely represents benign finding. Lungs: No consolidation. No mass. 4 mm nodule in the left lower lobe on series 9, image 53 stable since 09/09/2021 is compatible with benign granuloma requiring no further follow-up imaging. Pleural spaces: Unremarkable. No pneumothorax. No pleural effusion. Heart: There is no cardiomegaly. There is no pericardial effusion. Coronary arteries: Coronary artery calcification is present. Lymph nodes: No enlarged lymph nodes. Vasculature: The aortic arch is dilated to 3.1 cm. There is stable tortuosity of the descending aorta dilated to 3 cm above the diaphragm and 3.2 cm at the level of the diaphragm. Bones/joints: No acute fracture. Stable anterior internal fixation at C5-C6 level. No suspicious lytic or sclerotic bone lesions. Soft tissues: Unremarkable. PROCEDURE INFORMATION: Exam: CT Abdomen And Pelvis Without Contrast Exam date and time: 01/18/2023 2:58 PM Age: 72 years old Clinical indication: Injury or trauma; Blunt; Generalized; Other: Multiple falls; Prior surgery; Surgery date: 6+ months; Surgery type: Back surgery; Additional info: Falls, AMS TECHNIQUE: Imaging protocol: Computed tomography of the abdomen and pelvis without contrast. Radiation optimization: All CT scans at this facility use at least one of these dose optimization techniques: automated exposure control; mA and/or kV adjustment per patient size (includes targeted exams where dose is matched to clinical indication); or iterative reconstruction. Other protocol: This patient has received 21 known CTs and 0 known cardiac nuclear medicine studies in the 12 months prior to the current study. COMPARISON: CT abdomen pelvis w con* [id number] 08/22/2022 and 03/07/2022 RADIATION DOSE METRICS: Total DLP (mGy-cm): 386.31 FINDINGS: Liver: Normal in size. No mass. Gallbladder and bile ducts: Normal. No calcified stones. No ductal dilation. Pancreas: Normal. No ductal dilation. Spleen: The spleen is normal in size with stable 1 cm cyst. Adrenal glands: Normal. No mass. Kidneys and ureters: The left kidney is severely atrophic. The right kidney is normal in size. No hydronephrosis. Stable 2 mm nonobstructing stone in the mid fercho of the right kidney. Stable 2.7 cm simple cyst exophytic from the lower pole of the left kidney. Stomach and bowel: No obstruction. No wall thickening. There is extensive diverticulosis of the sigmoid colon with no signs of acute diverticulitis. Appendix: No evidence of appendicitis. Intraperitoneal space: No free intraperitoneal fluid or air. Vasculature: 4.4 cm nonruptured infrarenal abdominal aortic aneurysm measures stable since 08/22/2022. There is stable aneurysm of the right common iliac artery measuring 2.2 cm. Lymph nodes: No enlarged lymph nodes. Urinary bladder: Unremarkable as visualized. Reproductive: The uterus is absent post surgically. Bones/joints: No acute fracture. No dislocation. There are stable changes after L3 left posterior laminectomy and L3-L4 fusion with bilateral transpedicular fixation and fusion cage within the disc space. There is stable minimal grade 1 anterolisthesis of L3 and L4. Soft tissues: Unremarkable. CT/[place] [id number] IMPRESSION: No acute bone fracture. No evidence of traumatic injury of the internal organs. Stable diffuse ectasia of the aortic arch and of the descending aorta. IMPRESSION: No acute bone fracture. No evidence of traumatic injury of the internal organs. Stable chronic findings as described including 4.4 cm nonruptured infrarenal abdominal aortic aneurysm.
--- NOTE | 2023-01-18 14:37 | CTR_ITS ---
PROCEDURE INFORMATION: Exam: CT Head Without Contrast Exam date and time: 01/18/2023 2:53 PM Age: 72 years old Clinical indication: Altered mental status/memory loss; Additional info: Falls, AMS TECHNIQUE: Imaging protocol: Computed tomography of the head without contrast. Radiation optimization: All CT scans at this facility use at least one of these dose optimization techniques: automated exposure control; mA and/or kV adjustment per patient size (includes targeted exams where dose is matched to clinical indication); or iterative reconstruction. Other protocol: This patient has received 20 known CTs and 0 known cardiac nuclear medicine studies in the 12 months prior to the current study. COMPARISON: CT head wo con* [id number] 11/20/2022 3:18 PM RADIATION DOSE METRICS: Total DLP (mGy-cm): 1144.82 FINDINGS: Brain: No hemorrhage. No edema. Moderate diffuse cerebral atrophy and sequela of chronic small vessel ischemic disease. No mass effect. Cerebral ventricles: No ventriculomegaly. Paranasal sinuses: Visualized sinuses are unremarkable. No fluid levels. Mastoid air cells: Visualized mastoid air cells are well aerated. Bones/joints: Unremarkable. No acute fracture. Soft tissues: Unremarkable. CT/CT head wo con* [id number] IMPRESSION: No acute intracranial abnormality.
[2023-01-18 14:40] VITALS: BMI 23.0
--- NOTE | 2023-01-18 14:46 | ECG_ITS ---
[facility] Test Date: 2023-01-18 Pat Name: Rosie Martinez Department: Room: Gender: Female Deposit Refund Clerk: : [id number] Requested By: Hank Garcia Order Number: [id number] Carlos MD: Karime Solano M.D. Measurements Intervals [place] Rate: 80 P: 100 VT: 146 QRS: 68 QRSD: 85 T: 46 QT: 391 QTc: 454 Interpretive Statements SINUS RHYTHM NONSPECIFIC T-WAVE ABNORMALITY Compared to ECG 12/20/2022 01:09:05 T-wave abnormality now present Ventricular premature complex(es) no longer present Electronically Signed On 01-18-2023 19:32:26 CADD DRAFTER by Karime Solano M.D. [email or web address]
[2023-01-18 14:49] LABS: Glucose Point of Care 98 mg/dL (70-110)
[2023-01-18 15:21] VITALS: BP 188/99; PULSE 70; RESP 16; O2SAT 100
--- NOTE | 2023-01-18 15:29 | PC.PHAR ---
pt states she forgets to take her meds sometimes - medications last filled July 2022
[2023-01-18 16:00] VITALS: BP 197/111; PULSE 70
--- NOTE | 2023-01-18 16:47 | PC.NURSE ---
lab in department for blood draw. first attempt was unsuccessful. lab to attempt redraw
[2023-01-18 17:20] LABS: Basophils % 0.6 %; Hematocrit 40.6 % (37.0-47.0); Hemoglobin 12.6 g/dL (11.5-15.3); Lymphocytes # 0.7 10^3/uL (0.8-4.8); Lymphocytes % 11.1 %; Mean Corpuscular Hemoglobin 27.5 pg (28.0-34.0); Mean Corpuscular Volume 88.5 fl (81-99); Monocytes # 0.4 10^3/uL (0.2-0.9); Monocytes % 6.7 %; Neutrophils # 5.35 10^3/uL (1.8-7.7); Neutrophils % 81.4 %; Nucleated Red Blood Cells % 0 %; Platelet Count 225 10^3/cmm (130-400); Red Blood Count 4.59 10^6/uL (4.1-5.3); Red Cell Distribution Width 16.4 % (12.1-15.1); White Blood Count 6.6 10^3/uL (4.0-10.0)
--- NOTE | 2023-01-18 17:28 | PC.NURSE ---
pt removed self from VS monitor
[2023-01-18 17:42] LABS: Alanine Aminotransferase 18 U/L (0-33); Albumin Level 3.6 g/dL (3.5-5.2); Alkaline Phosphatase 135 U/L (35-105); Aspartate Amino Transferase 26 U/L (0-32); Blood Urea Nitrogen 10 mg/dL (8-23); Calcium 10.3 mg/dL (8.5-10.5); Carbon Dioxide 27 mmol/L (22-29); Chloride 99 mmol/L (98-107); Globulin 2.3 g/dL (1.3-4.6); Glucose 93 mg/dL (65-115); Osmolality Calculated 281 mOsm/kg (285-295); Sodium 136 mmol/L (136-145); Total Bilirubin 0.9 mg/dL (0.15-1.2); Total Protein 5.9 g/dL (6.6-8.7)
== END 2023-01-18 21:24 | disposition home or self-care (01) ==
PROVIDERS: Emergency Provider Emergency Medicine; PCP Family Medicine
DX: R29.6 Repeated falls (principal); R53.1 Weakness; Z91.14 Patient's other noncompliance with medication regimen; Z79.02 Long term (current) use of antithrombotics/antiplatelets; G30.9 Alzheimer's disease, unspecified; F02.80 Dementia in other diseases classified elsewhere, unspecified severity, without behavioral disturbance, psychotic disturbance, mood disturbance, and anxiety; I25.10 Atherosclerotic heart disease of native coronary artery without angina pectoris; E78.5 Hyperlipidemia, unspecified; I10 Essential (primary) hypertension; Z87.891 Personal history of nicotine dependence; W19.XXXA Unspecified fall, initial encounter
CPT/HCPCS: 36416; 70450; 71250; 72125; 74176; 80053; 82962; 85025; 93005; 99285

== ENCOUNTER 2023-01-21 14:55 | Emergency (ER) | payer SELFPAY ==
[2023-01-21] VITALS (20 sets, daily range): BP systolic 140–229; BP diastolic 68–125; PULSE 18–87; RESP 14–21; TEMP 36.3; O2SAT 91–100; BMI 17.6
--- NOTE | 2023-01-21 15:21 | ED_ITS ---
HPI - Chest Pain General: Chief Complaint: Chest Pain Stated Complaint: FALL/CP Time Seen by Provider: 01/21/23 15:07 Source: patient Mode of arrival: EMS History of Present Illness: 72-year-old female well-known to the emergency r oom services here at [facility]. She arrives via EMS she is not sure why she came she has no any particular complaints she does fall a lot but this is not a new complaint she denies falling recently hitting her head. She states her just does not want her at home. She had previously been placed in the detention but was brought home by the family. She has no chest pain no abdominal pain. She is awake and alert and at her normal baseline. Her initial complaint was fall and chest pain she denies chest pain at this time does admit to previous falls MD complaint: chest pain Onset (ago): unknown Timing of current episode: episodic Prior episodes: Yes Pain radiation: none Relieving factors: nothing Exacerbating factors: nothing Associated symptoms: Deny abdominal pain, diaphoresis, dyspnea, fever(s), leg edema, nausea, palpitations, sense of impending doom, syncope or vomiting Review of Systems Const: Reports: fatigue and malaise; Denies: fever(s), chills or diaphoresis ENMT: Denies: throat pain, ear or mastoid pain, nasal discharge or nasal congestion Card: Reports: chest pain; Denies: palpitations, irregular heart rhythm, edema, swelling of feet/ankles or syncope Resp: Denies: dyspnea or productive cough GI: Denies: abdominal pain, nausea or vomiting : Denies: flank pain, difficulty voiding, dysuria, urinary frequency or urinary urgency Skin/Breast: Denies: rash or pruritus PFSH ED PFSH: Medical History Abdominal aortic aneurysm (AAA) 3.0 cm to 5.0 cm in diameter in female Abnormal EKG Acute alteration in mental status Alzheimer's dementia 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 by CTA Jan 2018 Arnold-Chiari malformation, type I Atrophy of left kidney Clonidine overdose Coronary artery disease Esophageal thickening incidental finding on CT 03/2021 Falls frequently High risk medication use Hyperlipidemia Hypertension, essential Mesenteric artery stenosis Obstructive sleep apnea Peripheral vascular disease multiple vessels Polypharmacy Primary osteoarthritis of knees, bilateral Renal artery stenosis Seropositive rheumatoid arthritis of multiple joints Thyroid nodule incidental indeterminant finding on CT 03/2021 Uncontrolled hypertension UTI (urinary tract infection) Surgical History H/O hysterectomy with oophorectomy History of appendectomy History of total right knee replacement (TKR) S/P carpal tunnel release right, Dr. Hazel, 2014 S/P cataract extraction and insertion of intraocular lens bilateral S/P cervical spinal fusion ACDFF Dr. Dawn 12/07/2015 S/P right coronary artery (RCA) stent placement (~05/2019) Family History Mother CAD (coronary artery disease) Father No problems noted. Other Cancer Rheumatoid arthritis Denies family history of Chronic kidney disease (CKD) Systemic lupus erythematosus (SLE) in adult Lung disease Hypertension Social History Smoking and tobacco status: former smoker Alcohol intake: never Marital status: Current occupational status: retired Physical Exam Const: COMMON NORMALS: no acute distress GENERAL APPEARANCE: cooperative and comfortable ORIENTATION/CONSCIOUSNESS: Yes awake HENMT: COMMON NORMALS: normocephalic, atraumatic and hearing grossly normal bilaterally HEAD & SCALP: normocephalic and atraumatic Resp: COMMON NORMALS: normal respiratory effort, No retractions, No use of accessory muscles and clear to auscultation bilaterally AUSCULTATION: clear to auscultation bilaterally Cardio: COMMON NORMALS: regular rate, regular rhythm and No murmurs present (Cardio) RATE: regular rate RHYTHM: regular rhythm GI: COMMON NORMALS: Soft to palpation and No hepatosplenomegaly present AUSCULTATION: Yes normoactive bowel sounds PALPATION: Yes Soft to palpation, No Tenderness to palpation present (GI), No Guarding due to palpation present (GI) and Yes No hepatosplenomegaly present Extremity: COMMON NORMALS: normal to inspection, capillary refill normal, no clubbing, cyanosis or edema, no calf tenderness and no pedal edema Skin: COMMON NORMALS: no rashes or lesions noted GENERAL SKIN EXAM: no rashes or lesions noted Course Vital Signs: Vital signs: Vital Signs Temperature 97.3 F L 01/21/23 15:08 Pulse Rate 18 L 02/21/23 22:32 Respiratory Rate 17 01/21/23 17:40 Blood Pressure 147/68 01/21/23 17:40 Pulse Oximetry 95 01/21/23 17:40 Oxygen Delivery Me thod 01/21/23 16:35 MDM - Chest Pain Medical Decision Making Labs and EKG reviewed. Patient has no chest discomfort at this time. EKG does not show anything acute. She is able to move all extremities without pain. Head is normocephalic and atraumatic. Repeat imaging of the head was not done at this time. EKG was normal patient denies any ongoing chest pain troponin was slightly elevated has been in the past. Discharge patient home strongly recommend that she seek out higher level care particularly detention. Medical Records I reviewed the patient's medical records. Lab Data I reviewed the patient's lab results. 01/21/23 15:30 01/21/23 15:30 Laboratory Results WBC 6.9 10^3/uL (4.0-10.0) 01/21/23 15:30 RBC 5.63 10^6/uL (4.1-5.3) H 01/21/23 15:30 Hgb 15.5 g/dL (11.5-15.3) H 01/21/23 15:30 Hct 49.1 % (37.0-47.0) H 01/21/23 15:30 MCV 87.2 fl (81-99) 01/21/23 15:30 MCH 27.5 pg (28.0-34.0) L 01/21/23 15:30 MCHC 31.6 g/dL (30.0-36.0) 01/21/23 15:30 RDW 15.9 % (12.1-15.1) H 01/21/23 15:30 Plt Count 231 10^3/cmm (130-400) 01/21/23 15:30 MPV 10.4 fL (7.4-10.4) 01/21/23 15:30 Neut % (Auto) 81.0 % 01/21/23 15:30 Lymph % (Auto) 9.8 % 01/21/23 15:30 Mellette % (Auto) 8.3 % 01/21/23 15:30 Eos % (Auto) 0.0 % 01/21/23 15:30 Baso % (Auto) 0.6 % 01/21/23 15:30 Neut # (Auto) 5.57 10^3/uL (1.8-7.7) 01/21/23 15:30 Lymph # (Auto) 0.7 10^3/uL (0.8-4.8) L 01/21/23 15:30 Mellette # (Auto) 0.6 10^3/uL (0.2-0.9) 01/21/23 15:30 Eos # (Auto) 0.0 10^3/uL (0.0-0.8) 01/21/23 15:30 Baso # (Auto) 0.0 10^3/uL (0.0-0.1) 01/21/23 15:30 Nucleated RBC % (auto) 0 % 01/21/23 15:30 Nucleated RBCs # 0.0 /100WBC 01/21/23 15:30 Sodium 139 mmol/L (136-145) 01/21/23 15:30 Potassium 3.7 mmol/L (3.5-5.1) 01/21/23 15:30 Chloride 101 mmol/L (98-107) 01/21/23 15:30 Carbon Dioxide 25 mmol/L (22-29) 01/21/23 15:30 Anion Gap 16.7 (5-19) 01/21/23 15:30 BUN 12 mg/dL (8-23) 01/21/23 15:30 Creatinine 0.9 mg/dL (0.5-0.9) 01/21/23 15:30 GFR Calculation Not Reportable 01/21/23 15:30 Glucose 104 mg/dL (65-115) 01/21/23 15:30 Calculated Osmolality 288 mOsm/kg (285-295) 01/21/23 15:30 Calcium 10.3 mg/dL (8.5-10.5) 01/21/23 15:30 Total Bilirubin 1.1 mg/dL (0.15-1.2) 01/21/23 15:30 AST 28 U/L (0-32) 01/21/23 15:30 ALT 22 U/L (0-33) 01/21/23 15:30 Alkaline Phosphatase 159 U/L (35-105) H 01/21/23 15:30 Troponin T Gen 5 ng/L 28 ng/L (0-10) H 01/21/23 15:07 Total Protein 7.0 g/dL (6.6-8.7) 01/21/23 15:30 Albumin 4.1 g/dL (3.5-5.2) 01/21/23 15:30 Globulin 2.9 g/dL (1.3-4.6) 01/21/23 15:30 Urine Color Yellow (Yellow) 01/21/23 17:14 Urine Appearance Clear (CLEAR) 01/21/23 17:14 Urine pH 8 (5-7) H 01/21/23 17:14 Ur Specific Conley 1.015 (1.005-1.030) 01/21/23 17:14 Urine Protein 3+ (Negative) H 01/21/23 17:14 Urine Glucose (UA) Norm (Normal) 01/21/23 17:14 Urine Ketones Negative (Negative) 01/21/23 17:14 Urine Blood Neg (Negative) 01/21/23 17:14 Urine Nitrate Negative (Negative) 01/21/23 17:14 Urine Bilirubin Neg (Negative) 01/21/23 17:14 Prot Sulfosalicylic Acd Positive (Negative) 01/21/23 17:14 Urine Urobilinogen Norm mg/dL (Negative) 01/21/23 17:14 Ur Leukocyte Esterase Negative (Negative) 01/21/23 17:14 Urine RBC Rare /hpf (0-2) 01/21/23 17:14 Urine WBC 0-4 /hpf (0-5) H 01/21/23 17:14 Ur Squamous Epith Cells 0-4 /hpf (0-5) H 01/21/23 17:14 Amorphous Sediment Not Reportable 01/21/23 17:14 Urine Bacteria Trace /hpf (NONE) 01/21/23 17:14 Discharge Plan Discharge Patient Disposition: Home Clinical Impression: Frequent falls, Atypical chest pain, Benign essential HTN Condition: Stable Prescriptions: No Action nitroglycerin [Nitrostat] 0.4 mg tablet, sublingual 0.4 mg SUBLINGUAL Q5M PRN (Reason: Chest Pain) Qty: 25 1RF Rx Instructions: do not exceed 3 doses per episode atorvastatin 40 mg tablet 40 mg PO QPM Qty: 30 0RF lisinopril 20 mg Tablet 40 mg PO DAILY Qty: 60 0RF amlodipine 10 mg Tablet 10 mg PO DAILY Qty: 30 0RF quetiapine [Seroquel] 50 mg Tablet 150 mg PO BEDTIME clopidogrel 75 mg Tablet 75 mg PO DAILY metoprolol tartrate 25 mg tablet 12.5 mg PO BID Qty: 60 0RF Discharge Orders: Discharge ED (Routine); Ordered 01/21/23 Ordered By: Pradip Brown Referrals: Silvia Peng MD [Primary Care Provider] - Discharge Diet: Usual diet Discharge Activity: Limit activity as instructed Patient Instructions: Opioid Safety, Pain Management Activity Restrictions/Additional Instructions: You are seen today for frequent falls. Your EKG was unremarkable. Be discharged home recommend that you follow-up with your primary care doctor strongly consider placement detention for long-term care. Coding Level of Care Code ED Investigative Shopper for Loulou Borrero
[2023-01-21] MEDS: hyDRALAzine 20 mg/mL INJ 1 mL IVP (15:36)
[2023-01-21] MEDS: labetalol 5 mg/mL SDV 20mL 10 MG IVP (15:37)
--- NOTE | 2023-01-21 15:42 | ECG_ITS ---
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 Measurements Intervals [place] Rate: 70 P: 81 NC: 152 QRS: 11 QRSD: 81 T: 2 QT: 391 QTc: 424 Interpretive Statements SINUS RHYTHM NONSPECIFIC T-WAVE ABNORMALITY Compared to ECG 01/18/2023 14:46:14 No significant changes Electronically Signed On 01-21-2023 17:32:54 [employer] SALESPERSON by Jamie Ordaz M.D. [id number]
[2023-01-21 15:44] LABS: Basophils % 0.6 %; Hematocrit 49.1 % (37.0-47.0); Hemoglobin 15.5 g/dL (11.5-15.3); Lymphocytes # 0.7 10^3/uL (0.8-4.8); Lymphocytes % 9.8 %; Mean Corpuscular HGB Conc 31.6 g/dL (30.0-36.0); Mean Corpuscular Hemoglobin 27.5 pg (28.0-34.0); Mean Corpuscular Volume 87.2 fl (81-99); Mean Platelet Volume 10.4 fL (7.4-10.4); Monocytes # 0.6 10^3/uL (0.2-0.9); Monocytes % 8.3 %; Neutrophils # 5.57 10^3/uL (1.8-7.7); Nucleated Red Blood Cells % 0 %; Platelet Count 231 10^3/cmm (130-400); Red Blood Count 5.63 10^6/uL (4.1-5.3); Red Cell Distribution Width 15.9 % (12.1-15.1); White Blood Count 6.9 10^3/uL (4.0-10.0)
[2023-01-21 16:06] LABS: Alanine Aminotransferase 22 U/L (0-33); Albumin Level 4.1 g/dL (3.5-5.2); Alkaline Phosphatase 159 U/L (35-105); Anion Gap 16.7 (5-19); Aspartate Amino Transferase 28 U/L (0-32); Blood Urea Nitrogen 12 mg/dL (8-23); Calcium 10.3 mg/dL (8.5-10.5); Carbon Dioxide 25 mmol/L (22-29); Chloride 101 mmol/L (98-107); Globulin 2.9 g/dL (1.3-4.6); Glucose 104 mg/dL (65-115); Osmolality Calculated 288 mOsm/kg (285-295); Potassium 3.7 mmol/L (3.5-5.1); Sodium 139 mmol/L (136-145); Total Bilirubin 1.1 mg/dL (0.15-1.2)
[2023-01-21 17:28] LABS: Troponin T (5th) Once 28 ng/L (0-10)
[2023-01-21 18:00] LABS: Protein Urine 3+ (Negative); Specific Gravity, Urine 1.015 (1.005-1.030); Urine Appearance Clear (CLEAR); Urine Color Yellow (Yellow); pH Urine 8 (5-7)
[2023-01-21 18:01] LABS: Add Urine Microscopic? YES; Bacteria Urine TRACE /hpf; Bilirubin Urine Neg (Negative); Blood Urine Neg (Negative); Glucose Urine UA Norm (Normal); Ketones Urine Negative (Negative); Leukocyte Esterase Urine Negative (Negative); Nitrate Urine Negative (Negative); RBC Urine RARE /hpf (0-2); Squamous Epithelial Cell Urine 0-4 /hpf (0-5); Sulfosalicylic Acid Urine Positive (Negative); Urobilinogen Urine Norm (Negative); WBC Urine 0-4 /hpf (0-5)
== END 2023-01-21 22:41 | disposition home or self-care (01) ==
PROVIDERS: Emergency Provider Family Medicine; PCP Family Medicine
DX: R07.89 Other chest pain (principal); I10 Essential (primary) hypertension; R29.6 Repeated falls; Z79.02 Long term (current) use of antithrombotics/antiplatelets; Z87.891 Personal history of nicotine dependence; G30.9 Alzheimer's disease, unspecified; F02.80 Dementia in other diseases classified elsewhere, unspecified severity, without behavioral disturbance, psychotic disturbance, mood disturbance, and anxiety; I25.10 Atherosclerotic heart disease of native coronary artery without angina pectoris; E78.5 Hyperlipidemia, unspecified
CPT/HCPCS: 36415; 80053; 81001; 84484; 85025; 93005; 96374; 96375; 99285; J0360; J3490